=== PATIENT | male | born 1955 | race Caucasian/White ===

== ENCOUNTER 2020-10-27 10:29 | Outpatient (CLI) | payer OTHER, SELFPAY ==
--- NOTE | ~2020-10-27 | XR_ITS ---
EXAMINATION: XR forearm RT 2V DATE: 10/27/2020 10:59 INDICATION: Right arm pain and limited range of motion TECHNIQUE: AP an lateral views of the right forearm were obtained. COMPARISON: none FINDINGS: Marked diffuse osteopenia. Bone alignment is normal. No fracture. Mild polyarticular osteoarthritis a t the right elbow, wrist and visualized hand. No right elbow joint effusion. Soft tissues are unremar kable. IMPRESSION: 1. Marked diffuse osteopenia. No acute osseous abnormality. 2. Mild polyarticular osteoarthritis at the right elbow, wrist and visualized hand. Reviewed, dictated and finalized at location A. IMPRESSION: 1. Marked diffuse osteopenia. No acute osseous abnormality. 2. Mild polyarticular osteoarthritis at the right elbow, wrist and visualized h and.
== END 2020-10-27 10:30 | disposition home or self-care (01) ==
LOC: ANHIMG 10:34
PROVIDERS: PCP Internal Medicine; Visit Provider Internal Medicine
DX: M85.821 Other specified disorders of bone density and structure, right upper arm (principal); M19.021 Primary osteoarthritis, right elbow
CPT/HCPCS: 73090

== ENCOUNTER 2020-12-07 11:55 | Outpatient (CLI) | payer OTHER, SELFPAY ==
--- NOTE | ~2020-12-07 | XR_ITS ---
EXAMINATION: [id number]_[id number] EXAM DATE: 12/07/2020 12:37 INDICATION: Fall, left rib pain. TECHNIQUE: Frontal projection of the upper left ribs, frontal projection of the lower left ribs, obli que projection of the left ribs, frontal chest x-ray(s) for interpretation. Correlation is made to [facility] shoulder x-ray same day. FINDINGS: There are no displaced acute left rib fractures identified. There is no soft tissue abnor mality seen. No confluent consolidation, pneumothorax or pleural effusion suspected. Cardiomediastina l silhouette is normal. There is aortic arteriosclerosis. IMPRESSION: No displaced left rib fractures. Reviewed, dictated and finalized at location A.
--- NOTE | ~2020-12-07 | XR_ITS ---
EXAMINATION: XR shoulder LT min 2V EXAM DATE: 12/07/2020 12:36 INDICATION: W19.XXXA - Unspecified fall, left shoulder and rib pain. TECHNIQUE: The following left shoulder projections obtained: frontal projection with internal rotatio n, frontal projection with external rotation, Grashey, and scapular Y view (4+ views). Correlation is made to left rib x-ray same day. FINDINGS: No evidence of left shoulder rotator cuff calcific tendinosis. There is mild glenohumera l joint, mild acromioclavicular joint primary osteoarthritis. There are no acute fractures or disloca tions identified. There is no subcutaneous gas. The soft tissue is unremarkable. There are no rad iopaque foreign bodies. IMPRESSION: 1. XR shoulder LT min 2V exam without acute osseous findings. Reviewed, dictated and finalized at location A.
== END 2020-12-07 11:56 | disposition home or self-care (01) ==
LOC: ANHIMG 11:59
PROVIDERS: PCP Internal Medicine; Visit Provider Internal Medicine
DX: M25.512 Pain in left shoulder (principal); R09.81 Nasal congestion; W19.XXXA Unspecified fall, initial encounter
CPT/HCPCS: 71101; 73030

== ENCOUNTER 2021-02-14 10:54 | Outpatient (CLI) | payer OTHER, SELFPAY ==
[2021-02-14 11:55] LABS: Alanine Aminotransferase 16 U/L (4-50); Albumin Level 4.4 g/dL (3.5-5.1); Alkaline Phosphatase 81 U/L (38-126); Anion Gap 11 mmol/L (8-16); Aspartate Amino Transferase 21 U/L (17-59); Bilirubin,Total 0.4 mg/dL (0.2-1.3); Blood Urea Nitrogen 13 mg/dL (9-20); Calcium 9.3 mg/dL (8.4-10.2); Carbon Dioxide 27 mmol/L (22-30); Chloride 107 mmol/L (98-107); Cholesterol 97 mg/dL (0-200); Estimated Glomerular Filt Rate > 60; Glucose 91 mg/dL (65-110); HDL Direct 39 mg/dL; Potassium 3.6 mmol/L (3.4-5.0); Sodium 145 mmol/L (137-145); Triglycerides 76 mg/dL (<150)
[2021-02-14 12:06] LABS: LDL Cholesterol Direct 33 mg/dL
== END 2021-02-14 10:55 | disposition home or self-care (01) ==
LOC: ANHLAB 10:58
PROVIDERS: PCP Internal Medicine; Visit Provider Nurse Practitioner
DX: E78.5 Hyperlipidemia, unspecified (principal)
CPT/HCPCS: 36415; 80053; 80061

== ENCOUNTER 2021-05-01 14:08 | Emergency (ER) | payer OTHER, SELFPAY ==
--- NOTE | ~2021-05-01 | XR_ITS ---
EXAMINATION: XR chest 2V, XR shoulder RT min 2V DATE: 05/01/2021 16:18 INDICATION: Right shoulder pain post fall TECHNIQUE: 1. AP and lateral views of the chest were obtained. 2. AP and transscapular Y views of the right shoulder were obtained. COMPARISON: Chest CT dated 08/25/2014 FINDINGS: Chest: Biapical pleural-parenchymal scarring. Calcified nodules at the right apex and right lower lung zone along with calcified right hilar lymph nodes consistent with old granulomatous disease. Mild linear d iscoid atelectasis at the left lower lung zone. No pulmonary edema, pleural effusion or pneumothorax. The cardiomediastinal silhouette is normal. Mild thoracic spondylosis. Right shoulder: Diffuse osteopenia. Nondisplaced oblique fracture at the surgical neck of the proximal right humerus which remains in near-anatomic alignment. No other fractures identified. Osteoarthritis at the right shoulder, severe at the right acromioclavicular joint and at least mild severity at the right glenohu meral joint which is not clearly profiled. IMPRESSION: 1. Nondisplaced 1 part fracture at the surgical neck of the proximal right humerus. 2. Mild left basilar atelectasis. No acute cardiopulmonary disease. Reviewed, dictated and finalized at location A. ILE CONVERSION MANAGER IMPRESSION: 1. Nondisplaced 1 part fracture at the surgical neck of the proximal right kaitlin austin. 2. Mild left basilar atelectasis. No acute cardiopulmonary disease.
--- NOTE | ~2021-05-01 | XR_ITS ---
EXAMINATION: XR elbow RT 2V DATE: 05/01/2021 16:18 INDICATION: Painful rash at the right elbow TECHNIQUE: Lateral and oblique views of the right elbow were obtained. COMPARISON: None. FINDINGS: Alignment is normal. No fracture or joint effusion. Diffuse osteopenia. Mild osteoarthritis at the ri ght elbow. Enthesophyte at the proximal tip of the olecranon. No cortical erosions or periosteal reac tion. Soft tissue swelling over the dorsal aspect of the elbow and proximal forearm. No soft tissue g as or radiopaque foreign bodies. IMPRESSION: 1. Mild osteoarthritis at the right elbow. No right elbow joint effusion or acute osseous abnormality . Reviewed, dictated and finalized at location A. F SAFETY OFFICER IMPRESSION: 1. Mild osteoarthritis at the right elbow. No right elbow joint effusion or acu te osseous abnormality.
--- NOTE | ~2021-05-01 | CT_ITS ---
EXAMINATION: CT brain wo con DATE: 05/01/2021 16:27 INDICATION: Fall. Head injury. Right paresis and dysarthria from prior stroke. TECHNIQUE: Computed tomography (CT) of the head was performed without intravenous contrast. The mA wa s adjusted according to patient size. Iterative reconstruction technique was employed. Exam dose: 68 1.00 mGy-cm total exam DLP. COMPARISON: 08/25/2014 CT brain FINDINGS: There is extensive encephalomalacia of the left temporal, parietal and frontal areas and ex vacuo dilatation of the left lateral ventricle from old left middle cerebral artery territory infarc t. 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 No intracranial moderately mass lesion or hemorrhage or recent cerebrovascular accident is evident. N o midline shift or mass effect. There is prominent cerebellar and moderate cerebral volume loss. There is left vertebral artery and prominent bilateral carotid siphon internal carotid artery calcifi cation. There is nonspecific diminished attenuation cerebral white matter, likely due to chronic smal l vessel ischemic changes. No subdural or epidural hematoma is detected. Orbital contents are unremarkable. No skull fracture is evident. The mastoid air cells and included paranasal sinuses are unremarkable. IMPRESSION: Encephalomalacia left middle cerebral artery territory, chronic, not significant change since 08/25/2014; overlying bone flap Cerebral atherosclerosis and chronic small vessel ischemic changes of the cerebral white matter Reviewed, dictated and finalized at Location A. Reviewed, dictated and finalized at location B. AR BAND CREASER IMPRESSION: Encephalomalacia left middle cerebral artery territory, chronic, n ot significant change since 08/25/2014; overlying bone flap Cerebral atherosclerosis and chronic small vessel ischemic changes of the cereb ral white matter
[2021-05-01 14:09] VITALS: BP 113/41; PULSE 72; RESP 18; TEMP 36.9; O2SAT 97
[2021-05-01] MEDS: SODIUM CHLORIDE 0.9% IV 1,000 ML 999 ML IV CONT (16:51)
[2021-05-01] MEDS: fentaNYL CITRATE INJ (*CRX) 100 MCG/2 ML VIAL 50 MCG IV PUSH (16:51)
[2021-05-01 17:03] LABS: Basophils Absolute Auto 0.1 K/mm3 (0.0-0.1); Basophils Percent Auto 1.1 % (0.2-1.2); Eosinophils Absolute Auto 0.4 K/mm3 (0-0.3); Eosinophils Percent Auto 5.5 % (0-4.4); Hematocrit 34.2 % (42.0-52.0); Hemoglobin 11.5 g/dL (14.0-18.0); Immature Granulocyte Absolute 0.03 K/mm3 (0.00-0.031); Immature Granulocyte Percent A 0.4 % (0-0.5); Lymphocytes Absolute Auto 1.41 K/mm3 (0.9-3.2); Lymphocytes Percent Auto 18.9 % (18.3-44.2); Mean Corpuscular HGB Conc 33.6 g/dl (32-36); Mean Corpuscular Hemoglobin 34.7 pg (26-34); Mean Corpuscular Volume 103.3 fl (80-100); Mean Platelet Volume 9.3 fl (7.4-10.4); Monocytes Absolute Auto 0.6 K/mm3 (0.1-0.6); Monocytes Percent Auto 8.3 % (2.6-8.5); Neutrophils Absolute Auto 4.9 K/mm3 (1.3-6.7); Neutrophils Percent Auto 65.8 % (45.5-73.1); Platelet Count Result 337 k/mm3 (150-375); Red Blood Count 3.31 M/mm3 (4.6-6.20); Red Cell Distribution Width 12.1 % (11.5-14.5); White Blood Count 7.5 K/mm3 (4.5-10.0)
[2021-05-01 17:13] LABS: Creatine Kinase 60 U/L (55-170)
[2021-05-01 17:15] LABS: Alanine Aminotransferase 12 U/L (4-50); Albumin Level 4.3 g/dL (3.5-5.1); Alkaline Phosphatase 81 U/L (38-126); Anion Gap 7 mmol/L (8-16); Aspartate Amino Transferase 19 U/L (17-59); Blood Urea Nitrogen 18 mg/dL (9-20); Calcium 9.1 mg/dL (8.4-10.2); Carbon Dioxide 25 mmol/L (22-30); Chloride 106 mmol/L (98-107); Estimated CRCL calculation 62 ml/min; Estimated Glomerular Filt Rate > 60; Glucose 107 mg/dL (65-110); Potassium 3.7 mmol/L (3.4-5.0); Sodium 138 mmol/L (137-145)
--- NOTE | 2021-05-01 17:57 | ED.GENADULT ---
HPI - General Adult General Chief complaint: Extremity Injury, Upper Stated complaint: fall/right shoulder pain Time Seen by Provider: 05/01/21 15:31 Source: patient, family and RN notes reviewed Mode of arrival: ambulatory Limitations: no limitations History of Present Illness HPI narrative: Patient is a 65-year-old male who presents with right shoulder and upper extremity swelling that has been present since he sustained a ground-level fall on Friday he has history of right upper extremity weakness and right-sided weakness secondary to his past CVA she did denies any head injury or altered mentation he has had pain to the extremity worse with activity and movement he ran out of his pain medication today and has had increasing pain. Patient takes chronic narcotics given his chronic pain related to his CVA. She denies any other injuries or complaints. Patient has expressive aphasia. She denies any illness Related Data Home Medications Medication Instructions Recorded Confirmed aspirin 325 mg tablet 325 mg PO DAILY 08/03/20 03/02/21 Allergies Allergy/AdvReac Type Severity Reaction Status Date / Time codeine Allergy Mild HIVES Verified 05/01/21 15:42 Review of Systems Review of Systems: Review of systems limited due to history of expressive aphasia All systems reviewed & are unremarkable except as noted in HPI and below PMFSH Past Medical History Medical History CAD (coronary artery disease) Stroke Surgical History Surgical History History of back surgery 2010 Family History Family History Father Alcoholism Hypertension Mother Hypertension Heart disease Social History Social History Tobacco type: cigarettes Second hand tobacco smoke exposure: No Alcohol intake: current Drinks per week: 2 Alcohol use details: BEER Substance use: current Gender identity (if verbalized by the patient): Male Exam Narrative: GENERAL: Well-appearing, well-nourished, uncomfortable appearing, and in no acute distress. HEAD: Normocephalic, atraumatic. EYES: PERRLA and EOMI. ENT: Nares clear, no rhinorrhea or epistaxis. Mucous membranes moist. NECK: Supple. No adenopathy or masses. CHEST: Clear to auscultation. No respiratory distress. No wheezes rales or rhonchi HEART: Regular rate and rhythm. No murmur heard. Normal peripheral pulses. EXTREMITIES: Patient with tenderness and bruising and swelling from the right shoulder joint down into the forearm. Compartment tissues are soft. No tenderness of the forearm or wrist joint or hand BACK: No cervical thoracic or lumbar tenderness SKIN: Warm, dry, no rash. NEURO: Alert and oriented. Neurovascularly intact. Capillary refill less than 2 seconds PSYCH: Normal mood and affect. Course Course Emergency Course: Patient found to have a proximal right humerus fracture will be discharged home he was placed in a shoulder immobilizer he is aware of case findings treatment plan and diagnosis his was given imaging results he was referred to orthopedics advised to follow with primary care he is hemodynamically stable ABCs and vital signs intact and stable. Consultations Consultation #1: Discussed case with orthopedic surgery on-call Dr. Mcgowan who will follow patient in clinic Date: 05/01/21 Time: 18:02 Vital Signs Vital signs: Vital Signs Temperature 98.5 F 05/01/21 14:09 Pulse Rate 72 05/01/21 14:09 Respiratory Rate 18 05/01/21 14:09 Blood Pressure 113/41 L 05/01/21 14:09 Pulse Oximetry 97 05/01/21 14:09 Temperature 98.5 F 05/01/21 14:09 Pulse Rate 72 05/01/21 14:09 Respiratory Rate 18 05/01/21 14:09 Blood Pressure 113/41 L 05/01/21 14:09 Pulse Oximetry 97 05/01/21 14:09 Medical Decision Making
== END 2021-05-01 18:20 | disposition home or self-care (01) ==
PROVIDERS: Emergency Medicine Emergency Medical Services; Emergency Provider Emergency Medicine; PCP Internal Medicine
DX: S42.214A Unspecified nondisplaced fracture of surgical neck of right humerus, initial encounter for closed fracture (principal); I69.951 Hemiplegia and hemiparesis following unspecified cerebrovascular disease affecting right dominant side; I69.920 Aphasia following unspecified cerebrovascular disease; I69.998 Other sequelae following unspecified cerebrovascular disease; G89.29 Other chronic pain; I25.10 Atherosclerotic heart disease of native coronary artery without angina pectoris; F17.210 Nicotine dependence, cigarettes, uncomplicated; M19.021 Primary osteoarthritis, right elbow; I67.2 Cerebral atherosclerosis; W19.XXXA Unspecified fall, initial encounter
CPT/HCPCS: 36415; 70450; 71046; 73030; 73070; 80053; 82550; 85025; 96361; 96374; 99284; J3010; J7030

== ENCOUNTER 2024-03-27 11:43 | Emergency (ER) | payer OTHER, SELFPAY ==
[2024-03-27 12:17] VITALS: BP 158/52; PULSE 91; RESP 16; TEMP 36.3; O2SAT 98
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
--- OUTSIDE RECORDS SUMMARY | 2024-04-03 17:31 | XMS_ITS | Encounter Summary ---
Author Organization [facility] Address [address] [place] [address]. [place] [address] [place] [address] Care Team Providers Care Box Icer Name Role Phone Garrett Pineda MD Primary Care Provider [phone] Reason for Visit * Reason Onset Date Comments Appointment Request 02/15/2021 Encounter Details Date Type Department Care Team (Late st Contact Info) Description 02/15/2021 Telephone [facility] [address] [place] [address] Garrett Pineda MD [address] [address] Appointment Request Social History Tobacco Use Types Packs/Day Years Used Date Smoking Tobacco: Former Cigarettes Smokeless Tobacco: Never Comments:nicotine patches Alcohol Use Standard Drinks/Week Comments No 0 (1 standard drink = 0.6 oz pur e alcohol) Sex and Gender Information Value Date Recorded Sex Assigned at Not on file Legal Sex Male 7:37 PM CDT Gender Identity Not on file Sexual Orientation Not on file documented as of this encounter Progress Notes * Lexie Dickey CMA - 02/15/2021 11:25 AM CST Calling patient to schedule EE visit My direct line is [phone] OR QUALITATIVE RESEARCHER documented in this encounter Plan of Treatment Not on file documented as of this encounter Visit Diagnoses Not on filedocumented in this encounter Care Teams Box Icer Relationship Specialty Start Date End Date Garrett Pineda MD PCP - General FAMILY PRACTICE 02/07/20 10/16/23 documented as of this encounter
--- OUTSIDE RECORDS SUMMARY | 2024-04-03 17:31 | XMS_ITS | Encounter Summary ---
Author Organization [facility] Address [address] [place] [address]. [place] [address] [place] [address] Care Team Providers Care Marine Scientist Name Role Phone Garrett Pineda MD Primary Care Provider [phone] Reason for Referral * Imaging (Emergency) - New Request Specialty Diagnoses / Procedures Referred By Contac t Referred To Contact RADIOLOGY Procedures CT CERV SPINE WO CON Tyshawn Devi MD,PHD [address] [place] [address] Phone: tel: fax: Referral ID Status Reason Start Date Expiration Date V isits Requested Visits Authorized [id number] New Request 09/26/2023 2024 1 1 * Imaging (Emergency) - New Request Specialty Diagnoses / Procedures Referred By Contac t Referred To Contact RADIOLOGY Procedures CT HEAD WO CON Tyshawn Devi MD,PHD [address] [place] [id number] Phone: tel: fax: Referral ID Status Reason Start Date Expiration Date V isits Requested Visits Authorized [id number] New Request 09/26/2023 2024 1 1 Reason for Visit * Reason Comments Fall Encounter Details Date Type Department Care Team (Late st Contact Info) Description 09/26/2023 12:13 PM CDT - 09/26/2023 5:22 PM CDT Emergency [facility] [place] [address] Tyshawn Devi MD,PHD [address] [place] [id number] Fall Discharge Disposition: Home or Self Care (Routine Discharge) Social History Tobacco Use Types Packs/Day Years [...] on file documented as of this encounter Last Filed Vital Signs Vital Sign Reading Time Taken Comments Blood Pressure 127/50 09/26/2023 5:00 PM CDT Pulse 64 09/26/2023 5:00 PM CDT Temperature 36.8 ??C (98.3 ??F) 09/26/2023 12:22 PM C DT Respiratory Rate 18 09/26/2023 5:00 PM CDT Oxygen Saturation 92% 09/26/2023 5:00 PM CDT Inhaled Oxygen Concentration - - Weight 72.3 kg (159 lb 6.3 oz) 09/26/2023 12:22 PM CDT Height 175.3 cm (5' 9 ) 09/26/2023 12:22 PM CDT Body Mass Index 23.54 09/26/2023 12:22 PM CDT documented in this encounter Discharge Instructions * Attachments The following attachments cannot be sent through Care Everywhere. * Preventing Falls ED (Turkish) documented in this encounter Medications at Time of Discharge amLODIPine (NORVASC) 10 MG tablet Take 1 tablet (10 mg total) by mouth daily. aspirin (ASPIRIN LOW DOSE) 81 MG tablet Take 1 tablet (81 mg total) by mouth daily. atorvastatin (LIPITOR) 20 MG tablet Take 1 tablet (20 mg total) by mouth daily. 07/09/2023 buPROPion XL (WELLBUTRIN XL) 150 MG 24 hr tablet Take 1 tablet (150 mg total) by mouth every morning. 09/24/2023 gabapentin (NEURONTIN) 300 MG capsule Take 1 capsule (300 mg total) by mouth see administration instructions. Take 1 capsule by mouth in the morning and 2 at night 08/27/2023 HYDROcodone-john taminophen (NORCO) 5-325 MG tablet Take 1 tablet by mouth every 6 (six) hours as needed. levETIRAcetam (KEPPRA) 500 MG tablet Take 1 tablet (500 mg total) by mouth every 12 (twelve) hours. metoprolol tartrate 25 MG tablet Take 25 mg by mouth 2 (two) times daily. oxybutynin XL (DITROPAN-XL) 5 MG 24 hr tablet Take 1 tablet (5 mg total) by mouth daily. 09/10/2023 sertraline (ZOLOFT) 100 MG tablet Take 1 tablet (100 mg total) by mouth daily. 09/26/2023 tamsulosin 0.4 MG Cap Take 0.4 mg by mouth 2 (two) times a day. documented as of this encounter ED Notes * Paola Stock RN - 09/26/2023 5:21 PM CDT Provider discussed today's findings with the patient/family. The patient has been given informationregarding their treatment, follow up and concerning symptoms for which they should seek urgent or emergent attention. I have expressed the the importance of seeking attention should there be any new,or worsening symptoms or persistence of their condition. Patient verbalized understanding of the discharge instructions. * Paola Stock RN - 09/26/2023 4:13 PM CDT This RN spoke to [employer] ems in order to obtain a ride for pt back home. [employer] states they willcall back. * Paola Stock RN - 09/26/2023 1:16 PM CDT This RN spoke to pt's daughter and . Per family pt fell backwards hitting his head on the furniture. Per daughter pt has had a decline in ambulation, stating he urinated on himself because he couldn't get out of bed. I had to get help to turn him and when he tried to get up, he couldn't and started shaking. Family reports they will be up here. made aware. * Tyshawn Devi MD,PHD - 09/26/2023 12:29 PM CDT EMERGENCY DEPARTMENT ENCOUNTER Chief Complaint Chief Complaint Patient presents with Fall History of Present Illness 68-year-old male presenting to the emergency department for evaluation after a fall. Patient had ground level fall witnessed by family yesterday. They report he fell backwards and struck his head. Family denies that the patient lost consciousness. His family was concerned that he has had some difficulty ambulating since the fall, so they sent him to the emergency department for evaluation. He hasright-sided deficits from prior stroke and is on daily aspirin. He is also on supplemental oxygen as needed. Upon evaluation, he is unable to provide history and only answers questions with I don't know . Family reports this is his baseline mental status. Physical Exam Filed Vitals: 09/26/23 1222 09/26/23 1400 BP: 137/48 (!) 144/57 Pulse: 75 72 Resp: 16 17 Temp: 98.3 ??F (36.8 ??C) TempSrc: Oral SpO2: 95% 97% Weight: 72.3 kg (159 lb 6.3 oz) Height: 1.753 m (5' 9 ) CONSTITUTIONAL: Patient is awake, alert, in no acute distress HEAD AND FACE: Prior craniotomy on the left NECK: Supple, no obvious asymmetry, no cervical spine step-offs CARDIOVASCULAR: Regular rate and rhythm RESPIRATORY: No respiratory distress or tachypnea, no wheezing or crackles ABDOMEN: Soft, nontender, nondistended, NEUROLOGIC: Right-sided hemiplegia with increased muscle tone/spasticity on the right, answers questions with yes no or I do not know , patient's family reports that this is baseline MUSCULOSKELETAL: No tenderness or deformities to palpation of the major joints or long bones, good strength and tone, joints free from effusion, normal non- painful range of motion of the major joints VASCULAR: 2+ radial and DP pulses Diagnostic Studies / Procedures LABORATORY STUDIES: Results for orders placed or performed during the hospital encounter of 09/26/23 CBC W/DIFF AUTOMATED Result Value Ref Range WBC 9.90 4.5 - 11.0 x10'3/uL RBC 3.41 (L) 4.70 - 6.10 x10'6/uL HGB 11.5 (L) 14.0 - 18.0 G/DL HCT 35.4 (L) 43.0 - 54.0 % MCV 103.8 (H) 80.0 - 94.0 FL MCH 33.7 (H) 27.0 - 31.0 PG MCHC 32.5 32.0 - 36.0 G/DL RDW 12.8 11.5 - 14.5 % PLT 273 130 - 400 x10'3/uL MPV 9.6 9.3 - 12.2 FL DIFFERENTIAL TYPE AUTOMATED DIFFERENTIAL NEUTROPHILS 84.7 % LYMPHOCYTES 7.4 % MONOCYTES 5.3 % EOSINOPHILS 1.7 % BASOPHILS 0.6 % IMMATURE GRANS 0.3 % ABS. NEUTROPHILS 8.39 (H) 1.80 - 7.70 x10'3/uL ABS. LYMPHOCYTES 0.73 (L) 1.00 - 4.80 x10'3/uL ABS. MONOCYTES 0.52 0.30 - 0.82 x10'3/uL ABS. EOSINOPHILS 0.17 0.04 - 0.54 x10'3/uL ABS. BASOPHILS 0.06 0.01 - 0.08 x10'3/uL ABS. IMMATURE GRANULOCYTES 0.03 0.00 - 0.49 x10'3/uL COMPREHENSIVE METABOLIC PANEL Result Value Ref Range GLUCOSE 106 (H) 70 - 99 MG/DL BUN 24 (H) 7 - 18 MG/DL CREATININE S/P/B 1.30 0.7 - 1.3 MG/DL SODIUM S/P/B 141 136 - 145 MMOL/L POTASSIUM S/P/B 3.9 3.5 - 5.1 MMOL/L CHLORIDE S/P/B 110 (H) 100 - 108 MMOL/L CO2 27.7 21 - 32 MMOL/L CALCIUM S/P/B 8.7 8.5 - 10.1 MG/DL BILIRUBIN TOTAL S/P/B 0.2 0.2 - 1.2 MG/DL TOTAL PROTEIN S/P/B 7.3 6.4 - 8.2 G/DL ALBUMIN S/P/B 2.8 (L) 3.4 - 5.0 G/DL AST 9 (L) 15 - 37 U/L ALT 18 16 - 60 U/L ALKALINE PHOSPHATASE S/P/B 119 50 - 136 U/L ANION GAP 3.3 (L) 5 - 15 MMOL/L BUN CREATININE RATIO 18.5 6 - 26 A/G RATIO 0.6 (L) 1.0 - 2.0 RATIO GFR ESTIMATE 59 (L) >90 ML/MIN/1.73 M2 IMAGING STUDIES XR CHEST PA+LAT Final Result by User, [id number] (09/25 1529) Examination: Chest x-ray 2 view Exam date/time: 09/26/2023 2:56 PM Reason For Exam: 68 male . Follow-up finding on thoracic spine radiographs imaging Comparison: Thoracic spine radiographs 09/26/2023 Technique: AP frontal and lateral. Findings: Lordotic frontal view.. Normal cardiac size allowing for technique. Normally positioned trachea. Hilar and mediastinal contours are within normal limits. Nonspecific bronchovascular and interstitial prominence in the setting of the bilateral low normal lung volumes. No No convincing confluent consolidation sizable effusion or pneumothorax. Suspected streaky bibasilar subsegmental atelectasis. Upper abdomen is unremarkable. =====IMPRESSION:===== 1. No convincing acute/active cardiopulmonary process identified radiographically 2. Bilateral low normal lung volumes with possibly related bronchovascular and interstitial prominence. 3. Suspected bibasilar subsegmental atelectasis. Ordered By: TYSHAWN DEVI Interpreted By: Haris Jiang MD, 09/26/2023 3:25 PM XR HIP VEDA 2V+PELVIS Final Result by User, [id number] (09/25 7766) Examination: Pelvis AP view and bilateral Hips Exam Date/Time: 09/26/2023 1:27 PM Reason For Exam: ground level fall, right hip pain Comparison: None Technique: AP view of the pelvis and bilateral hips were obtained. Findings: No acute fracture or dislocation. Hip joint spaces are preserved bilaterally. SI joints are unremarkable. No destructive osseous lytic or sclerotic lesions. Postoperative changes spine will be further described on spinal x-ray. Vascular calcifications are noted. Findings are suspicious for atherosclerotic change.. =====IMPRESSION:===== 1. No acute osseous abnormalities. Ordered By: TYSHAWN DEVI Interpreted By: Tima Ponce MD, 09/26/2023 2:29 PM XR THOR SPINE 3V Final Result by User, [id number] (09/25 2406) CLINICAL INDICATION: 68-year-old male. Reason for examination: Fall, back pain. 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 Per ems pt had a witnessed ground level fall yesterday in which family denies any LOC or hitting head. 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 Per ems pt reported right arm and left knee pain in which they gave 30mg toradol IM. EXAMINATION: THORACIC SPINE RADIOGRAPHS LUMBAR SPINE RADIOGRAPHS TECHNIQUE: 4 view survey of the thoracic spine: AP and lateral and 2 lateral swimmer's lateral. 4. View survey of the lumbar spine COMPARISON: No previous imaging of the thoracic or the lumbar spine. FINDINGS: Thoracic spine: No evidence of acute fracture or traumatic malalignment. No acute compression fracture and without retropulsion of the posterior vertebral margins.. Thoracic vertebral bodies demonstrate normal alignment. Old superior endplate wedge compression deformity 3 and T9 and T8, each with sclerotic superior endplate. Approximately 10% loss of height of each segment. The remainder the thoracic vertebral segments demonstrate normal body height and contour. No posterior pneumothorax. On the lateral projection there appears to be consolidation or infiltrate or atelectasis in one of the lower lungs. Might consider follow-up with 2 view chest study. Lumbar spine: There are 5 nonrib-bearing lumbar vertebral segments. No evidence of acute fracture or traumatic malalignment. No acute compression fracture. There is intact hardware after posterior lumbar interbody fusion at L4 and L4-5 and S1. Expected normal position of titanium cage prosthetic disc spacers at L4-5 and L5-S1. Old wedge compression deformity superior endplate L1 sclerotic margin no retropulsion of the posterior vertebral body approximately 10% loss of height. The remainder of the lumbar segments demonstrate normal body height and contour. The posterior lumbar vertebral line is maintained. Facet alignment is preserved. Intervertebral disc spaces are intact. Sacrum intact. Sacroiliac joints are symmetric. Heavy circumferential plaque of the infrarenal aorta, moderate aortobiiliac disease and circumferential plaque of the inflow arteries. IMPRESSION: 1. No evidence of acute fracture or traumatic malalignment in the thoracic or lumbar spine. 2. Multilevel thoracic and L1 with old wedge compression deformities without retropulsion of posterior margins 3. On the lateral thoracic spine radiograph there appears to be consolidation or infiltrate or atelectasis in one of the lower lobes; consider follow-up with a two-view chest study. Referred By: Interpreted By: Maxine Lloyd DO, 09/26/2023 2:34 PM XR LUMB SPINE 3V Final Result by User, [id number] (09/25 3653) CLINICAL INDICATION: 68-year-old male. Reason for examination: Fall, back pain. 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 Per ems pt had a witnessed ground level fall yesterday in which family denies any LOC or hitting head. 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 Per ems pt reported right arm and left knee pain in which they gave 30mg toradol IM. EXAMINATION: THORACIC SPINE RADIOGRAPHS LUMBAR SPINE RADIOGRAPHS TECHNIQUE: 4 view survey of the thoracic spine: AP and lateral and 2 lateral swimmer's lateral. 4. View survey of the lumbar spine COMPARISON: No previous imaging of the thoracic or the lumbar spine. FINDINGS: Thoracic spine: No evidence of acute fracture or traumatic malalignment. No acute compression fracture and without retropulsion of the posterior vertebral margins.. Thoracic vertebral bodies demonstrate normal alignment. Old superior endplate wedge compression deformity 3 and T9 and T8, each with sclerotic superior endplate. Approximately 10% loss of height of each segment. The remainder the thoracic vertebral segments demonstrate normal body height and contour. No posterior pneumothorax. On the lateral projection there appears to be consolidation or infiltrate or atelectasis in one of the lower lungs. Might consider follow-up with 2 view chest study. Lumbar spine: There are 5 nonrib-bearing lumbar vertebral segments. No evidence of acute fracture or traumatic malalignment. No acute compression fracture. There is intact hardware after posterior lumbar interbody fusion at L4 and L4-5 and S1. Expected normal position of titanium cage prosthetic disc spacers at L4-5 and L5-S1. Old wedge compression deformity superior endplate L1 sclerotic margin no retropulsion of the posterior vertebral body approximately 10% loss of height. The remainder of the lumbar segments demonstrate normal body height and contour. The posterior lumbar vertebral line is maintained. Facet alignment is preserved. Intervertebral disc spaces are intact. Sacrum intact. Sacroiliac joints are symmetric. Heavy circumferential plaque of the infrarenal aorta, moderate aortobiiliac disease and circumferential plaque of the inflow arteries. IMPRESSION: 1. No evidence of acute fracture or traumatic malalignment in the thoracic or lumbar spine. 2. Multilevel thoracic and L1 with old wedge compression deformities without retropulsion of posterior margins 3. On the lateral thoracic spine radiograph there appears to be consolidation or infiltrate or atelectasis in one of the lower lobes; consider follow-up with a two-view chest study. Referred By: Interpreted By: Maxine Lloyd DO, 09/26/2023 2:[address] HEAD WO CON Final Result by User, [id number] (09/25 1936) EXAMINATION: CT of the Head EXAM DATE/TIME: 09/26/2023 12:54 PM REASON FOR EXAM: History of craniotomy Head trauma, minor (Age >= 65y) COMPARISON: None TECHNIQUE: Axial CT images of the brain are obtained from skull base through vertex without the use of IV contrast agent. A radiation dose lowering technique was used for this procedure, which may include but is not necessarily limited to, dose reduction technique, automated exposure control, the use of greater reconstruction, ALARA (as low as reasonably achievable) techniques, and imaged gently techniques. FINDINGS: Left craniotomy is noted. Severe encephalomalacia in the left cerebrum is noted with atrophy of the middle cerebral artery distribution. Compensatory dilatation of the left lateral ventricle is seen. Minimal midline shift to left is also noted, likely secondary to encephalomalacia in the left cerebrum. This measures 3 mm. No acute intracranial hemorrhage is seen. No obvious cerebral edema is noted. Ventricles are minimally enlarged with prominent sulci bilaterally indicated mild symmetric parenchymal volume loss. There are minimal areas of scattered hypodensities in the periventricular deep white matter which are nonspecific but likely secondary to mild small vessel ischemic disease. There are no extra-axial fluid collections seen. There is no obvious mass effect. There is no depressed skull fracture. Visualized paranasal sinuses are clear. Orbital contents Normal in their viewed portions. =====IMPRESSION:===== No evidence of acute intracranial hemorrhage or extra-axial collection. Positive left craniotomy. Left cerebral encephalomalacia in the left middle cerebral artery distribution. Associated compensatory dilatation of the left lateral ventricle and minimal left midline shift noted. CT scan can be insensitive to acute ischemia. Ordered By: TYSHAWN DEVI Interpreted By: Tima Ponce MD, 09/26/2023 1:[address] CERV SPINE WO CON Final Result by User, [id number] (09/25 1316) Exam: CT Cervical Spine without contrast. Indication: 68 male. Ground-level fall. Right arm and left knee pain Neck trauma (Age >= 65y) . History of prior stroke Comparison: None Technique: Computed tomography of the cervical spine performed without contrast. A dose lowering technique was used for this procedure, which may include, but is not limited to, dose reduction technique, automated exposure control, the use of iterative reconstruction, and ALARA (As Low As Reasonably Achievable) / Image Gently techniques. CT finding: Upper cervical spine straightening. Normal vertebral body alignment without significant listhesis. Facets and lateral masses are aligned. Heterogeneous normal bone density. Normal vertebral body heights. No fractures seen. No focal finding. No focal lesion. Multilevel degenerative spondylosis with the mild and moderate disc degenerative change. Mild facet and uncovertebral hypertrophic spurring. There is multilevel spinal stenosis related to primarily disc protrusions and posterior discussed by complexes with the suspected moderately severe spinal stenosis at the C3-4 and C4-5, and moderate at C5-6 and C6-7. There is bilateral neural foraminal narrowing most prominent at C4-5 and C5-6. =====IMPRESSION:===== 1. No CT imaging findings for acute cervical spine injury. No fracture or signal malalignment. 2. Multilevel degenerative spondylosis with multilevel significant spinal stenosis and multilevel foraminal narrowing. Ordered By: TYSHAWN DEVI Interpreted By: Haris Jiang MD, 09/26/2023 1:10 PM ED Course / Medical Decision Making Patient presenting with a chief complaint of fall Additional history is provided by and obtained from EMS and family due to patient's baseline mentalstatus I reviewed the patient's labs, which are significant for hyperglycemia on CMP. His CBC is notable for mild macrocytic anemia. I reviewed the radiologist's interpretation of the patient's radiologic diagnostics. A CT of the head ordered to rule out intracranial hemorrhage and/or skull fracture is negative in this regard. A CT of the cervical spine ordered to rule out cervical spine fracture or dislocation is negative in this regard. X- rays of the thoracic spine, lumbar spine, hips, pelvis, and chest show no osseous abnormalities or other remarkable abnormalities. The remainder of his extremity examination is normal at this time without evidence of additional injuries. I interpreted the patient's pulse oximeter at rest, which is 95% on room air, which is normal and determined that this patient is not hypoxic It is assessment that the patient is his mental status baseline. No injuries are found on examination or with diagnostic imaging. His vital signs are normal. 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 Per ems pt had a witnessed ground level fall yesterday in which family denies any LOC or hitting head. 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 Per ems pt reported right arm and left knee pain in which they gave 30mg toradol IM. Pt ambulates with a cane. Pt is alert and oriented, but states 'I don't know when asked questions. * Saeid Larsen RN - 09/26/2023 12:13 PM CDT Bed: 17 Expected date: Expected time: Means of arrival: Comments: [place] documented in this encounter Plan of Treatment Not on file documented as of this encounter Procedures Procedure Name Priority Date/Time Associated Diagnosis Comments XR CHEST PA+LAT STAT 09/26/2023 3:08 PM CDT XR THOR SPINE 3V STAT 09/26/2023 1:57 PM CDT XR LUMB SPINE 3V STAT 09/26/2023 1:57 PM CDT XR HIP VEDA 2V+PELVIS STAT 09/26/2023 1:[address] HEAD WO CON STAT 09/26/2023 1:[address] CERV SPINE WO CON STAT 09/26/2023 1:03 PM CDT COMPREHENSIVE METABOLIC PANEL STAT 09/26/2023 12:41 PM CDT CBC W/DIFF AUTOMATED STAT 09/26/2023 12:41 PM CDT documented in this encounter Results * XR CHEST PA+LAT (09/26/2023 3:08 PM CDT) Anatomical Region Laterality Modality Chest Radiographic Tawanna ging 09/26/2023 3:25 PM CDT Impressions 09/26/2023 3:28 PM CDT =====IMPRESSION:===== 1. No convincing acute/active cardiopulmonary process identified radiographically 2. Bilateral low normal lung volumes with possibly related bronchovascular and interstitial prominence. 3. Suspected bibasilar subsegmental atelectasis. Ordered By: TYSHAWN DEVI Interpreted By: Haris Jiang MD, 09/26/2023 3:25 PM Narrative 09/26/2023 3:28 PM CDT Examination: Chest x-ray 2 view Exam date/time: 09/26/2023 2:56 PM Reason For Exam: ??68 male . Follow-up finding on thoracic spine radiographs imaging ?? Comparison: Thoracic spine radiographs 09/26/2023 Technique: AP frontal and lateral. Findings: Lordotic frontal view.. Normal cardiac size allowing for technique. Normally positioned trachea. Hilar and mediastinal contours are within normal limits. Nonspecific bronchovascular and interstitial prominence in the setting of the bilateral low normal lung volumes. No No convincing confluent consolidation sizable effusion or pneumothorax. Suspected streaky bibasilar subsegmental atelectasis. Upper abdomen is unremarkable. Procedure Note Haris Jiang MD - 09/26/2023 Examination: Chest x-ray 2 view Exam date/time: 09/26/2023 2:56 PM Reason For Exam: 68 male . Follow-up finding on thoracic spineradiographs imaging Comparison: Thoracic spine radiographs 09/26/2023 Technique: AP frontal and lateral. Findings: Lordotic frontal view.. Normal cardiac size allowing fortechnique. Normally positioned trachea. Hilar and mediastinal contours arewithin normal limits. Nonspecific bronchovascular and interstitial prominence in the setting ofthe bilateral low normal lung volumes. No No convincing confluent consolidation sizable effusion or pneumothorax.Suspected streaky bibasilar subsegmental atelectasis. Upper abdomen is unremarkable. =====IMPRESSION:===== 1. No convincing acute/active cardiopulmonary process identifiedradiographically 2. Bilateral low normal lung volumes with possibly related bronchovascularand interstitial prominence. 3. Suspected bibasilar subsegmental atelectasis. Ordered By: TYSHAWN DEVI Interpreted By: Haris Jiang MD, 09/26/2023 3:25 PM us Tyshawn Devi MD,PHD GENERAL IMAGING Final Resu lt * XR LUMB SPINE 3V (09/26/2023 1:57 PM CDT) Anatomical Region Laterality Modality Spine Radiographic Tawanna ging 09/26/2023 2:34 PM CDT Impressions 09/26/2023 2:47 PM CDT IMPRESSION: 1. ??No evidence of acute fracture or traumatic malalignment in the thoracic or lumbar spine. 2. ??Multilevel thoracic and L1 with old wedge compression deformities without retropulsion of posterior margins 3. ??On the lateral thoracic spine radiograph there appears to be consolidation or infiltrate or atelectasis in one of the lower lobes; consider follow-up with a two-view chest study. Referred By: ?? Interpreted By: Maxine Lloyd DO, 09/26/2023 2:34 PM Narrative 09/26/2023 2:47 PM CDT CLINICAL INDICATION: 68-year-old male. ??Reason for examination: Fall, back pain. 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 Per ems pt had a witnessed ground level fall yesterday in which family denies any LOC or hitting head. 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 Per ems pt reported right arm and left knee pain in which they gave 30mg toradol IM. EXAMINATION: THORACIC SPINE RADIOGRAPHS LUMBAR SPINE RADIOGRAPHS TECHNIQUE: 4 view survey of the thoracic spine: AP and lateral and 2 lateral swimmer's lateral. 4. ??View survey of the lumbar spine COMPARISON: No previous imaging of the thoracic or the lumbar spine. FINDINGS: Thoracic spine: No evidence of acute fracture or traumatic malalignment. ??No acute compression fracture and without retropulsion of the posterior vertebral margins.. ??Thoracic vertebral bodies demonstrate normal alignment. ??Old superior endplate wedge compression deformity 3 and T9 and T8, each with sclerotic superior endplate. ??Approximately 10% loss of height of each segment. ??The remainder the thoracic vertebral segments demonstrate normal body height and contour. No posterior pneumothorax. ??On the lateral projection there appears to be consolidation or infiltrate or atelectasis in one of the lower lungs. ??Might consider follow-up with 2 view chest study. Lumbar spine: There are 5 nonrib-bearing lumbar vertebral segments. ??No evidence of acute fracture or traumatic malalignment. ??No acute compression fracture. ??There is intact hardware after posterior lumbar interbody fusion at L4 and L4-5 and S1. ??Expected normal position of titanium cage prosthetic disc spacers at L4-5 and L5-S1. ??Old wedge compression deformity superior endplate L1 sclerotic margin no retropulsion of the posterior vertebral body approximately 10% loss of height. ??The remainder of the lumbar segments demonstrate normal body height and contour. ??The posterior lumbar vertebral line is maintained. ??Facet alignment is preserved. ??Intervertebral disc spaces are intact. Sacrum intact. ??Sacroiliac joints are symmetric. Heavy circumferential plaque of the infrarenal aorta, moderate aortobiiliac disease and circumferential plaque of the inflow arteries. Procedure Note Maxine Lloyd MD - 09/26/2023 CLINICAL INDICATION: 68-year-old male. Reason for examination: Fall, back pain. 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 Pt is aox2 at baseline , wear oxygen prnand has right sided deficit from a previous stroke. Per ems pt reportedright arm and left knee pain in which they gave 30mg toradol IM. EXAMINATION: THORACIC SPINE RADIOGRAPHS LUMBAR SPINE RADIOGRAPHS TECHNIQUE: 4 view survey of the thoracic spine: AP and lateral and 2 lateralswimmer's lateral. 4. View survey of the lumbar spine COMPARISON: No previous imaging of the thoracic or the lumbar spine. FINDINGS: Thoracic spine: No evidence of acute fracture or traumatic malalignment. No acutecompression fracture and without retropulsion of the posterior vertebralmargins.. Thoracic vertebral bodies demonstrate normal alignment. Oldsuperior endplate wedge compression deformity 3 and T9 and T8, each withsclerotic superior endplate. Approximately 10% loss of height of eachsegment. The remainder the thoracic vertebral segments demonstrate normalbody height and contour. No posterior pneumothorax. On the lateral projection there appears to beconsolidation or infiltrate or atelectasis in one of the lower lungs.Might consider follow-up with 2 view chest study. Lumbar spine: There are 5 nonrib-bearing lumbar vertebral segments. No evidence ofacute fracture or traumatic malalignment. No acute compression fracture.There is intact hardware after posterior lumbar interbody fusion at L4 andL4-5 and S1. Expected normal position of titanium cage prosthetic discspacers at L4-5 and L5-S1. Old wedge compression deformity superiorendplate L1 sclerotic margin no retropulsion of the posterior vertebralbody approximately 10% loss of height. The remainder of the lumbarsegments demonstrate normal body height and contour. The posterior lumbarvertebral line is maintained. Facet alignment is preserved.Intervertebral disc spaces are intact. Sacrum intact. Sacroiliac joints are symmetric. Heavy circumferential plaque of the infrarenal aorta, moderateaortobiiliac disease and circumferential plaque of the inflow arteries. IMPRESSION: 1. No evidence of acute fracture or traumatic malalignment in thethoracic or lumbar spine. 2. Multilevel thoracic and L1 with old wedge compression deformitieswithout retropulsion of posterior margins 3. On the lateral thoracic spine radiograph there appears to beconsolidation or infiltrate or atelectasis in one of the lower lobes;consider follow-up with a two-view chest study. Referred By: Interpreted By: Maxine Lloyd DO, 09/26/2023 2:34 PM us Tyshawn Devi MD,PHD GENERAL IMAGING Final Resu lt * XR THOR SPINE 3V (09/26/2023 1:57 PM CDT) Anatomical Region Laterality Modality Spine Radiographic Tawanna ging 09/26/2023 2:34 PM CDT Impressions 09/26/2023 2:47 PM CDT IMPRESSION: 1. ??No evidence of acute fracture or traumatic malalignment in the thoracic or lumbar spine. 2. ??Multilevel thoracic and L1 with old wedge compression deformities without retropulsion of posterior margins 3. ??On the lateral thoracic spine radiograph there appears to be consolidation or infiltrate or atelectasis in one of the lower lobes; consider follow-up with a two-view chest study. Referred By: ?? Interpreted By: Maxine Lloyd DO, 09/26/2023 2:34 PM Narrative 09/26/2023 2:47 PM CDT CLINICAL INDICATION: 68-year-old male. ??Reason for examination: Fall, back pain. 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 Per ems pt had a witnessed ground level fall yesterday in which family denies any LOC or hitting head. 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 Per ems pt reported right arm and left knee pain in which they gave 30mg toradol IM. EXAMINATION: THORACIC SPINE RADIOGRAPHS LUMBAR SPINE RADIOGRAPHS TECHNIQUE: 4 view survey of the thoracic spine: AP and lateral and 2 lateral swimmer's lateral. 4. ??View survey of the lumbar spine COMPARISON: No previous imaging of the thoracic or the lumbar spine. FINDINGS: Thoracic spine: No evidence of acute fracture or traumatic malalignment. ??No acute compression fracture and without retropulsion of the posterior vertebral margins.. ??Thoracic vertebral bodies demonstrate normal alignment. ??Old superior endplate wedge compression deformity 3 and T9 and T8, each with sclerotic superior endplate. ??Approximately 10% loss of height of each segment. ??The remainder the thoracic vertebral segments demonstrate normal body height and contour. No posterior pneumothorax. ??On the lateral projection there appears to be consolidation or infiltrate or atelectasis in one of the lower lungs. ??Might consider follow-up with 2 view chest study. Lumbar spine: There are 5 nonrib-bearing lumbar vertebral segments. ??No evidence of acute fracture or traumatic malalignment. ??No acute compression fracture. ??There is intact hardware after posterior lumbar interbody fusion at L4 and L4-5 and S1. ??Expected normal position of titanium cage prosthetic disc spacers at L4-5 and L5-S1. ??Old wedge compression deformity superior endplate L1 sclerotic margin no retropulsion of the posterior vertebral body approximately 10% loss of height. ??The remainder of the lumbar segments demonstrate normal body height and contour. ??The posterior lumbar vertebral line is maintained. ??Facet alignment is preserved. ??Intervertebral disc spaces are intact. Sacrum intact. ??Sacroiliac joints are symmetric. Heavy circumferential plaque of the infrarenal aorta, moderate aortobiiliac disease and circumferential plaque of the inflow arteries. Procedure Note Maxine Lloyd MD - 09/26/2023 CLINICAL INDICATION: 68-year-old male. Reason for examination: Fall, back pain. 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 Pt is aox2 at baseline , wear oxygen prnand has right sided deficit from a previous stroke. Per ems pt reportedright arm and left knee pain in which they gave 30mg toradol IM. EXAMINATION: THORACIC SPINE RADIOGRAPHS LUMBAR SPINE RADIOGRAPHS TECHNIQUE: 4 view survey of the thoracic spine: AP and lateral and 2 lateralswimmer's lateral. 4. View survey of the lumbar spine COMPARISON: No previous imaging of the thoracic or the lumbar spine. FINDINGS: Thoracic spine: No evidence of acute fracture or traumatic malalignment. No acutecompression fracture and without retropulsion of the posterior vertebralmargins.. Thoracic vertebral bodies demonstrate normal alignment. Oldsuperior endplate wedge compression deformity 3 and T9 and T8, each withsclerotic superior endplate. Approximately 10% loss of height of eachsegment. The remainder the thoracic vertebral segments demonstrate normalbody height and contour. No posterior pneumothorax. On the lateral projection there appears to beconsolidation or infiltrate or atelectasis in one of the lower lungs.Might consider follow-up with 2 view chest study. Lumbar spine: There are 5 nonrib-bearing lumbar vertebral segments. No evidence ofacute fracture or traumatic malalignment. No acute compression fracture.There is intact hardware after posterior lumbar interbody fusion at L4 andL4-5 and S1. Expected normal position of titanium cage prosthetic discspacers at L4-5 and L5-S1. Old wedge compression deformity superiorendplate L1 sclerotic margin no retropulsion of the posterior vertebralbody approximately 10% loss of height. The remainder of the lumbarsegments demonstrate normal body height and contour. The posterior lumbarvertebral line is maintained. Facet alignment is preserved.Intervertebral disc spaces are intact. Sacrum intact. Sacroiliac joints are symmetric. Heavy circumferential plaque of the infrarenal aorta, moderateaortobiiliac disease and circumferential plaque of the inflow arteries. IMPRESSION: 1. No evidence of acute fracture or traumatic malalignment in thethoracic or lumbar spine. 2. Multilevel thoracic and L1 with old wedge compression deformitieswithout retropulsion of posterior margins 3. On the lateral thoracic spine radiograph there appears to beconsolidation or infiltrate or atelectasis in one of the lower lobes;consider follow-up with a two-view chest study. Referred By: Interpreted By: Maxine Lloyd DO, 09/26/2023 2:34 PM us Tyshawn Devi MD,PHD GENERAL IMAGING Final Resu lt * XR HIP VEDA 2V+PELVIS (09/26/2023 1:57 PM CDT) Anatomical Region Laterality Modality Hip, Pelvis Radiographic Tawanna ging 09/26/2023 2:29 PM CDT Impressions 09/26/2023 2:35 PM CDT =====IMPRESSION:===== 1. ??No acute osseous abnormalities. Ordered By: TYSHAWN DEVI Interpreted By: Tima Ponce MD, 09/26/2023 2:29 PM Narrative 09/26/2023 2:35 PM CDT Examination: Pelvis AP view and bilateral Hips Exam Date/Time: 09/26/2023 1:27 PM Reason For Exam: ??ground level fall, right hip pain ? Comparison: None Technique: ??AP view of the pelvis and bilateral hips were obtained. Findings: No acute fracture or dislocation. Hip joint spaces are preserved bilaterally. SI joints are unremarkable. No destructive osseous lytic or sclerotic lesions. ??Postoperative changes spine will be further described on spinal x- ray. Vascular calcifications are noted. Findings are suspicious for atherosclerotic change.. Procedure Note Tima Ponce MD - 09/26/2023 Examination: Pelvis AP view and bilateral Hips Exam Date/Time: 09/26/2023 1:27 PM Reason For Exam: ground level fall, right hip pain Comparison: None Technique: AP view of the pelvis and bilateral hips were obtained. Findings: No acute fracture or dislocation. Hip joint spaces are preservedbilaterally. SI joints are unremarkable. No destructive osseous lytic orsclerotic lesions. Postoperative changes spine will be further describedon spinal x-ray. Vascular calcifications are noted. Findings are suspicious foratherosclerotic change.. =====IMPRESSION:===== 1. No acute osseous abnormalities. Ordered By: TYSHAWN DEVI Interpreted By: Tima Ponce MD, 09/26/2023 2:29 PM us Tyshawn Devi MD,PHD GENERAL IMAGING Final Resu lt * CT CERV SPINE WO CON (09/26/2023 1:03 PM CDT) Anatomical Region Laterality Modality Spine Computed Tomogra phy 09/26/2023 1:10 PM CDT Impressions 09/26/2023 1:15 PM CDT =====IMPRESSION:===== 1. No CT imaging findings for acute cervical spine injury. No fracture or signal malalignment. 2. Multilevel degenerative spondylosis with multilevel significant spinal stenosis and multilevel foraminal narrowing. Ordered By: TYSHAWN DEVI Interpreted By: Haris Jiang MD, 09/26/2023 1:10 PM Narrative 09/26/2023 1:15 PM CDT Exam: CT Cervical Spine without contrast. Indication: 68 male. Ground-level fall. Right arm and left knee pain Neck trauma (Age >= 65y) ? . History of prior stroke Comparison: None Technique: Computed tomography of the cervical spine performed without contrast. A dose lowering technique was used for this procedure, which may include, but is not limited to, dose reduction technique, automated exposure control, the use of iterative reconstruction, and ALARA (As Low As Reasonably Achievable) / Image Gently techniques. CT finding: Upper cervical spine straightening. Normal vertebral body alignment without significant listhesis. Facets and lateral masses are aligned. Heterogeneous normal bone density. Normal vertebral body heights. No fractures seen. No focal finding. No focal lesion. Multilevel degenerative spondylosis with the mild and moderate disc degenerative change. Mild facet and uncovertebral hypertrophic spurring. There is multilevel spinal stenosis related to primarily disc protrusions and posterior discussed by complexes with the suspected moderately severe spinal stenosis at the C3-4 and C4-5, and moderate at C5-6 and C6-7. There is bilateral neural foraminal narrowing most prominent at C4-5 and C5-6. Procedure Note Haris Jiang MD - 09/26/2023 Exam: CT Cervical Spine without contrast. Indication: 68 male. Ground-level fall. Right arm and left knee pain Necktrauma (Age >= 65y) . History of prior stroke Comparison: None Technique: Computed tomography of the cervical spine performed withoutcontrast. A dose lowering technique was used for this procedure, which mayinclude, but is not limited to, dose reduction technique, automatedexposure control, the use of iterative reconstruction, and ALARA (As LowAs Reasonably Achievable) / Image Gently techniques. CT finding: Upper cervical spine straightening. Normal vertebral body alignment without significant listhesis. Facets andlateral masses are aligned. Heterogeneous normal bone density. Normal vertebral body heights. Nofractures seen. No focal finding. No focal lesion. Multilevel degenerativespondylosis with the mild and moderate disc degenerative change. Mildfacet and uncovertebral hypertrophic spurring. There is multilevel spinal stenosis related to primarily disc protrusionsand posterior discussed by complexes with the suspected moderately severespinal stenosis at the C3-4 and C4-5, and moderate at C5-6 and C6-7. Thereis bilateral neural foraminal narrowing most prominent at C4-5 and C5-6. =====IMPRESSION:===== 1. No CT imaging findings for acute cervical spine injury. No fracture orsignal malalignment. 2. Multilevel degenerative spondylosis with multilevel significant spinalstenosis and multilevel foraminal narrowing. Ordered By: TYSHAWN DEVI Interpreted By: Haris Jiang MD, 09/26/2023 1:10 PM us Tyshawn eDvi MD,PHD CT Final Resu lt * CT HEAD WO CON (09/26/2023 1:03 PM CDT) Anatomical Region Laterality Modality Head Computed Tomogra phy 09/26/2023 1:05 PM CDT Impressions 09/26/2023 1:15 PM CDT =====IMPRESSION:===== ?? No evidence of acute intracranial hemorrhage or extra-axial collection. Positive left craniotomy. Left cerebral encephalomalacia in the left middle cerebral artery distribution. Associated compensatory dilatation of the left lateral ventricle and minimal left midline shift noted. CT scan can be insensitive to acute ischemia. Ordered By: TYSHAWN DEVI Interpreted By: Tima Ponce MD, 09/26/2023 1:05 PM Narrative 09/26/2023 1:15 PM CDT EXAMINATION: CT of the Head EXAM DATE/TIME: 09/26/2023 12:54 PM REASON FOR EXAM: ??History of craniotomy Head trauma, minor (Age >= 65y) ? COMPARISON: None TECHNIQUE: Axial CT images of the brain are obtained from skull base through vertex without the use of IV contrast agent. A radiation dose lowering technique was used for this procedure, which may include but is not necessarily limited to, dose reduction technique, automated exposure control, the use of greater reconstruction, ALARA (as low as reasonably achievable) techniques, and imaged gently techniques. FINDINGS: Left craniotomy is noted. Severe encephalomalacia in the left cerebrum is noted with atrophy of the middle cerebral artery distribution. Compensatory dilatation of the left lateral ventricle is seen. Minimal midline shift to left is also noted, likely secondary to encephalomalacia in the left cerebrum. This measures 3 mm. No acute intracranial hemorrhage is seen. No obvious cerebral edema is noted. Ventricles are minimally enlarged with prominent sulci bilaterally indicated mild symmetric parenchymal volume loss. ??There are minimal areas of scattered hypodensities in the periventricular deep white matter which are nonspecific but likely secondary to mild small vessel ischemic disease. There are no extra-axial fluid collections seen. ??There is no obvious mass effect. There is no depressed skull fracture. ??Visualized paranasal sinuses are clear. ??Orbital contents Normal in their viewed portions. Procedure Note Tima Ponce MD - 09/26/2023 EXAMINATION: CT of the Head EXAM DATE/TIME: 09/26/2023 12:54 PM REASON FOR EXAM: History of craniotomy Head trauma, minor (Age >= 65y) COMPARISON: None TECHNIQUE: Axial CT images of the brain are obtained from skull basethrough vertex without the use of IV contrast agent. A radiation doselowering technique was used for this procedure, which may include but isnot necessarily limited to, dose reduction technique, automated exposurecontrol, the use of greater reconstruction, ALARA (as low as reasonablyachievable) techniques, and imaged gently techniques. FINDINGS: Left craniotomy is noted. Severe encephalomalacia in the leftcerebrum is noted with atrophy of the middle cerebral artery distribution.Compensatory dilatation of the left lateral ventricle is seen. Minimalmidline shift to left is also noted, likely secondary to encephalomalaciain the left cerebrum. This measures 3 mm. No acute intracranial hemorrhage is seen. No obvious cerebral edema isnoted. Ventricles are minimally enlarged with prominent sulci bilaterallyindicated mild symmetric parenchymal volume loss. There are minimal areasof scattered hypodensities in the periventricular deep white matter whichare nonspecific but likely secondary to mild small vessel ischemicdisease. There are no extra-axial fluid collections seen. There is noobvious mass effect. There is no depressed skull fracture. Visualizedparanasal sinuses are clear. Orbital contents Normal in their viewedportions. =====IMPRESSION:===== No evidence of acute intracranial hemorrhage or extra-axial collection. Positive left craniotomy. Left cerebral encephalomalacia in the left middle cerebral arterydistribution. Associated compensatory dilatation of the left lateralventricle and minimal left midline shift noted. CT scan can be insensitiveto acute ischemia. Ordered By: TYSHAWN DEVI Interpreted By: Tima Ponce MD, 09/26/2023 1:05 PM us Tyshawn Devi MD,PHD CT Final Resu lt * (ABNORMAL) COMPREHENSIVE METABOLIC PANEL (09/26/2023 12:41 PM CDT) GLUCOSE 106(H) 70 - 99 MG/DL 09/26/2023 1:13 PM CDT [facility] BUN 24(H) 7 - 18 MG/DL 09/26/2023 1:13 PM CDT [facility] CREATININE S/P/B 1.30 0.7 - 1.3 MG/DL 09/26/2023 1:13 PM CDT [facility] SODIUM S/P/B 141 136 - 145 MMOL/L 09/26/2023 1:13 PM CDT [facility] POTASSIUM S/P/B 3.9 3.5 - 5.1 MMOL/L 09/26/2023 1:13 PM CDT [facility] CHLORIDE S/P/B 110(H) 100 - 108 MMOL/L 09/26/2023 1:13 PM CDT [facility] CO2 27.7 21 - 32 MMOL/L 09/26/2023 1:13 PM CDT [facility] CALCIUM S/P/B 8.7 8.5 - 10.1 MG/DL 09/26/2023 1:13 PM CDT [facility] BILIRUBIN TOTAL S/P/B 0.2 0.2 - 1.2 MG/DL 09/26/2023 1:13 PM CDT [facility] Comment: THIS ASSAY IS NOT RECOMMENDED FOR PATIENTS UNDERGOING TREATMENT WITH ELTROMBOPAG DUE TO THE POTENTIAL FOR FALSELY ELEVATED RESULTS. TOTAL PROTEIN S/P/B 7.3 6.4 - 8.2 G/DL 09/26/2023 1:13 PM CDT [facility] ALBUMIN S/P/B 2.8(L) 3.4 - 5.0 G/DL 09/26/2023 1:13 PM CDT [facility] AST 9(L) 15 - 37 U/L 09/26/2023 1:13 PM T [facility] ALT 18 16 - 60 U/L 09/26/2023 1:13 PM T [facility] ALKALINE PHOSPHATASE S/P/B 119 50 - 136 U/L 09/26/2023 1:13 PM T [facility] ANION GAP 3.3(L) 5 - 15 MMOL/L 09/26/2023 1:13 PM T [facility] BUN CREATININE RATIO 18.5 6 - 26 09/26/2023 1:13 PM T [facility] A/G RATIO 0.6(L) 1.0 - 2.0 RATIO 09/26/2023 1:13 PM T [facility] GFR ESTIMATE 59(L) >90 ML/MIN/1.7 3 M2 09/26/2023 1:13 PM T [facility] Comment: NOTE: eGFR is not calculated for patients <18 years of age. This is an estimated GFR calculation using the new CKD EPI creatinine equation without race and so does not require a correction factor for race. This estimated GFR should not be used for calculating drug doses. 09/26/2023 12:4 1 PM CDT us Tyshawn Devi MD,PHD LABORATORY Final Resu lt [facility] [address] [place] [address], * (ABNORMAL) CBC W/DIFF AUTOMATED (09/26/2023 12:41 PM CDT) [facility] Signature WBC 9.90 4.5 - 11.0 x10'3/uL 09/26/2023 12:50 PM CDT [facility] RBC 3.41(L) 4.70 - 6.10 x10'6/uL 09/26/2023 12:50 PM CDT [facility] HGB 11.5(L) 14.0 - 18.0 G/DL 09/26/2023 12:50 PM CDT [facility] HCT 35.4(L) 43.0 - 54.0 % 09/26/2023 12:50 PM CDT [facility] MCV 103.8(H) 80.0 - 94.0 FL 09/26/2023 12:50 PM CDT [facility] MCH 33.7(H) 27.0 - 31.0 PG 09/26/2023 12:50 PM CDT [facility] MCHC 32.5 32.0 - 36.0 G/DL 09/26/2023 12:50 PM CDT [facility] RDW 12.8 11.5 - 14.5 % 09/26/2023 12:50 PM CDT [facility] PLT 273 130 - 400 x10'3/uL 09/26/2023 12:50 PM CDT [facility] MPV 9.6 9.3 - 12.2 FL 09/26/2023 12:50 PM CDT [facility] DIFFERENTIAL TYPE AUTOMATED DIFFERENTIAL 09/26/2023 12:50 PM CDT [facility] NEUTROPHILS % 84.7 % 09/26/2023 12:50 PM CDT [facility] LYMPHOCYTES % 7.4 % 09/26/2023 12:50 PM CDT [facility] MONOCYTES % 5.3 % 09/26/2023 12:50 PM CDT [facility] EOSINOPHILS 1.7 % 09/26/2023 12:50 PM CDT [facility] BASOPHILS 0.6 % 09/26/2023 12:50 PM CDT [facility] IMMATURE GRANS % 0.3 % 09/26/19 12:50 PM CDT [facility] ABS. NEUTROPHILS 8.39(H) 1.80 - 7.70 x10'3/uL 09/26/2023 12:50 PM CDT [facility] ABS. LYMPHOCYTES 0.73(L) 1.00 - 4.80 x10'3/uL 09/26/2023 12:50 PM CDT [facility] ABS. MONOCYTES 0.52 0.30 - 0.82 x10'3/uL 09/26/2023 12:50 PM CDT [facility] ABS. EOSINOPHILS 0.17 0.04 - 0.54 x10'3/uL 09/26/2023 12:50 PM CDT [facility] ABS. BASOPHILS 0.06 0.01 - 0.08 x10'3/uL 09/26/2023 12:50 PM CDT [facility] ABS. IMMATURE GRANULOCYTES 0.03 0.00 - 0.49 x10'3/uL 09/26/2023 12:50 PM CDT [facility] 09/26/2023 12:4 1 PM CDT us Tyshawn Devi MD,PHD LABORATORY Final Resu lt [facility] [address] [place] [address], documented in this encounter Visit Diagnoses Diagnosis Ground-level fall- Primary documented in this encounter Care Teams Marine Scientist Relationship Specialty Start Date End Date Garrett Pineda MD PCP - General FAMILY PRACTICE 02/07/20 10/16/23 documented as of this encounter
--- OUTSIDE RECORDS SUMMARY | 2024-04-03 17:31 | XMS_ITS | Encounter Summary ---
Author Organization [facility] Address [facility] [place] [address] [place] [address] Care Team Providers Care Steam Shovel Engineer Name Role Phone Garrett Pineda MD Primary Care Provider [phone] Reason for Visit * Reason Onset Date Comments Record Request 10/13/2020 Encounter Details Date Type Department Care Team (Late st Contact Info) Description 10/13/2020 Telephone [facility] Family Medicine - [place] [address] [place] [address] Garrett Pineda MD [address] [address] Record Request Social History Tobacco Use Types Packs/Day [...] as of this encounter Progress Notes * Veronica Pedersen MA - 10/16/2020 1:10 PM CDT I received the colonoscopy report and will fax to Dr. Pineda. * Veronica Pedersen MA - 10/13/2020 2:27 PM CDT I am faxing for the colonoscopy report * Veronica Pedersen MA - 10/13/2020 2:11 PM CDT Contacting patient for colorectal cancer screening result. My direct extension is [phone]. You can also reach me at: [phone] ([place]ENZO) OR [phone] (LEV) documented in this encounter Plan of Treatment Not on file documented as of this encounter Visit Diagnoses Not on filedocumented in this encounter Care Teams Steam Shovel Engineer Relationship Specialty Start Date End Date Garrett Pineda MD PCP - General FAMILY PRACTICE 02/07/20 10/16/23 documented as of this encounter
--- OUTSIDE RECORDS SUMMARY | 2024-04-03 17:31 | XMS_ITS | Clinical Summary ---
Author Organization [facility] Address [address] [place] [address]. [place] [address] [place] [address] Care Team Providers Care Support Services Tech Name Role Phone Evaristo Chapin DO Primary Care Provider [phone] Allergies No known active allergies Medications metoprolol tartrate 25 MG tablet Take 25 mg by mouth 2 (two) times daily. Active tamsulosin 0.4 MG Cap Take 0.4 mg by mouth 2 (two) times a day. Active amLODIPine (NORVASC) 10 MG tablet Take 1 tablet (10 mg total) by mouth daily. Active atorvastatin (LIPITOR) 20 MG tablet Take 1 tablet (20 mg total) by mouth daily. 4 Active buPROPion XL (WELLBUTRIN XL) 150 MG 24 hr tablet Take 1 tablet (150 mg total) by mouth every morning. 4 Active gabapentin (NEURONTIN) 300 MG capsule Take 1 capsule (300 mg total) by mouth see administration instructions. Take 1 capsule by mouth in the morning and 2 at night 4 Active HYDROcodone-ac etaminophen (NORCO) 5-325 MG tablet Take 1 tablet by mouth every 6 (six) hours as needed. Active levETIRAcetam (KEPPRA) 500 MG tablet Take 1 tablet (500 mg total) by mouth every 12 (twelve) hours. Active oxybutynin XL (DITROPAN-XL) 5 MG 24 hr tablet Take 1 tablet (5 mg total) by mouth daily. 4 Active sertraline (ZOLOFT) 100 MG tablet Take 1 tablet (100 mg total) by mouth daily. 4 Active aspirin (ASPIRIN LOW DOSE) 81 MG tablet Take 1 tablet (81 mg total) by mouth daily. Active Active Problems No known active problems Encounters Date Type Department Care Team Description 03/10/2024 Telephone [facility] Family Medicine - [place] [address] [place] [address] Evaristo Chapin DO Appointment Reminder from Last 3 Months Immunizations Name Administration Dates Next Due PFIZER COVID-19 (ORIGINAL FO RMULATION, PURPLE CAP) mRNA, LNP-S, PF, 30 MCG/0.3 ML DOSE 07/20/2020,06/28/2020 Social History Tobacco Use Types Packs/Day Years Used Date Smoking Tobacco: Former Cigarettes Smokeless Tobacco: Never Tobacco Cessation:Ready to Q uit: No Comments:nicotine patches Alcohol Use Standard Drinks/Week Comments No 0 (1 standard drink = 0.6 oz pur e alcohol) Sex and Gender Information Value Date Recorded Sex Assigned at Not on file Legal Sex Male 7:37 PM CDT Gender Identity Not on file Sexual Orientation Not on file Last Filed Vital Signs Vital Sign Reading [...] Mass Index 23.54 09/26/2023 12:22 PM CDT Plan of Treatment Health Maintenance Due Date Last Done Comments Hepatitis C 1972 Zoster Vaccines (1 of 2) 2004 Annual Medicare Wellness Visit 09/26/2019 Pneumococcal Vaccine: 65+ Years (2 of 2 - PCV) 10/19/2020 10/20/2019, 05/31/2015 COVID-19 Vaccine (3 - season) 2023 07/20/2020, 06/28/2020 Influenza Adult (#1) 2023 01/24/2020, 04/29/2019, 03/03/2019, Additional history exists DTaP, Tdap and Td Vaccines (4 - Td or Tdap) 05/30/2025 05/31/2015, 03/31/2005, 04/26/2004 Colorectal Cancer Screening Colonoscopy (10 Years) 07/26/2027 07/25/2017 RSV Immunization or 60+ Years (1 - 1-dose 75+ series) 2029 Meningococcal Vaccine Aged Out No keisha myesha eligible based on patient's age to complete this topic RSV Immunizations Under 20 Months Aged Out No longer eligible based on patient's age to complete this topic Procedures Procedure Name Priority Date/Time Associated Diagnosis Comments COLONOSCOPY GENERIC (SCAN ORDER) 07/25/2017 from Last 3 Months or Most Recently Relevant to Health Maintenance Results * COLONOSCOPY GENERIC (07/25/2017) 07/25/2017 Narrative 07/25/2017 Ordered by an unspecified provider. us Documents Scanned SCANNING Final Result from Last 3 Months or Most Recently Relevant to Health Maintenance Insurance MEDICARE [facility] Care Teams Support Services Tech Relationship Specialty Start Date End Date Evaristo Chapin [place] [place] [address] PCP - General FAMILY PRACTICE 10/17/23
--- OUTSIDE RECORDS SUMMARY | 2024-04-03 17:31 | XMS_ITS | Encounter Summary ---
Author Organization [facility] Address [address] [place] [address]. [place] [address] [place] [address] Care Team Providers Care Customer Experience Specialist Name Role Phone Evaristo Chapin DO Primary Care Provider [phone] Reason for Visit * Reason Onset Date Comments Appointment Reminder 03/10/2024 Encounter Details Date Type Department Care Team (Late st Contact Info) Description 03/10/2024 Telephone [facility] Family Medicine [facility] [place] [address] [place] [phone] Evaristo Chapin DO [address] [place] [address] Appointment Reminder Social History Tobacco Use Types Packs/Day Years [...] as of this encounter Progress Notes * Linsey Knowles - 03/10/2024 11:25 AM CST LVM for patient to call to see if he wanted to reschedule his missed appointment. T CREASER documented in this encounter Plan of Treatment Not on file documented as of this encounter Visit Diagnoses Not on filedocumented in this encounter Care Teams Customer Experience Specialist Relationship Specialty Start Date End Date Evaristo Chapin DO [address] [place] [address] PCP - General FAMILY PRACTICE 10/17/23 documented as of this encounter
--- OUTSIDE RECORDS SUMMARY | 2024-04-03 17:31 | XMS_ITS | Encounter Summary ---
Author Organization [facility] Address [address] [place] [address]. [place] [address] [place] [address] Care Team Providers Care Chief Hydroelectric Station Operator Name Role Phone Garrett Pineda MD Primary Care Provider [phone] Reason for Visit * Reason Onset Date Comments Appointment Request 09/16/2023 Encounter Details Date Type Department Care Team (Late st Contact Info) Description 09/16/2023 Telephone [facility] Family Medicine - [address] [address] Evaristo Chapin, DO [address] [place] [address] Appointment Request Social History Tobacco Use Types [...] as of this encounter Progress Notes * Karla Shipman - 09/16/2023 2:26 PM CDT Called pt to schedule an appt. Pt is on list of patients not yet seen this year by a provider Per [facility], pt's PCP is Dr Chapin. Pt will need to be scheduled for a new patient/enhanced encounter appointment. No answer, lvm for pt to call back and get scheduled with Dr Chapin. documented in this encounter Plan of Treatment Not on file documented as of this encounter Visit Diagnoses Not on filedocumented in this encounter Care Teams Chief Hydroelectric Station Operator Relationship Specialty Start Date End Date Garrett Pineda MD PCP - General FAMILY PRACTICE 02/07/20 10/16/23 documented as of this encounter
--- OUTSIDE RECORDS SUMMARY | 2024-04-03 17:31 | XMS_ITS | Encounter Summary ---
Author Organization [facility] Address [address] [place] [address]. [place], [place] [address] [place] [address] Care Team Providers Care Or Manager Name Role Phone Garrett Pineda MD Primary Care Provider [phone] Encounter Details Date Type Department Care Team (Latest Contact Info) Description 09/26/2023 Travel Social History Tobacco Use Types Packs/Day Years [...] on file documented as of this encounter Plan of Treatment Not on file documented as of this encounter Visit Diagnoses Not on filedocumented in this encounter Care Teams Or Manager Relationship Specialty Start Date End Date Garrett Pineda MD PCP - General FAMILY PRACTICE 02/07/20 10/16/23 documented as of this encounter
--- OUTSIDE RECORDS SUMMARY | 2024-04-03 17:32 | XMS_ITS | Encounter Summary ---
Author Organization [facility] Address [address] [place] [address]. [place] [address] [place] [address] Care Team Providers Care Iron Caster Name Role Phone Shawn Berkowitz MD Primary Care Provider [phone] Garrett Pineda MD Primary Care Provider [phone] Reason for Visit * Reason Comments Colonoscopy Report (SCAN) Encounter Details Date Type Department Care Team ([facility] Contact Info) Description 07/25/2017 Scan HEALTH INFO [facility] Scanned, Documents Colonoscopy Report (SCAN) Social History Tobacco Use Types Packs/Day Years Used Date Smoking Tobacco: Never Assessed Sex and Gender Information Value Date Recorded Sex Assigned at Not on file Legal Sex Male 7:37 PM CDT Gender Identity Not on file Sexual Orientation Not on file COVID-19 Exposure Response Date Recorded In the last month, have you been in contact with someone who was confirmed or suspected to have Coronavirus / COVID-19? No / Unsure 07/20/2020 12:44 PM CDT documented as of this encounter Plan of Treatment Not on file documented as of this encounter Procedures Procedure Name Priority Date/Time Associated Diagnosis Comments COLONOSCOPY GENERIC (SCAN ORDER) 07/25/2017 documented in this encounter Results * COLONOSCOPY GENERIC (07/25/2017) 07/25/2017 Narrative 07/25/2017 Ordered by an unspecified provider. us Documents Scanned SCANNING Final Result documented in this encounter Visit Diagnoses Not on filedocumented in this encounter Care Teams Iron Caster Relationship Specialty Start Date End Date Shawn Berkowitz MD [address] [place] [address] PCP - General INTERNAL MEDICINE 08/28/17 02/06/20 Garrett Pineda MD [address] [place] [address] PCP - General FAMILY PRACTICE 02/07/20 10/16/23 documented as of this encounter
--- OUTSIDE RECORDS SUMMARY | 2024-04-03 17:32 | XMS_ITS | Encounter Summary ---
Author Organization [facility] Address [address] [place] [address]. [place], [place] [address] [place] [address] Care Team Providers Care Mechanic Helper Name Role Phone Unavailable Primary Care Provider Unavailabl e Encounter Details Date Type Department Care Team (Late st Contact Info) Description 02/04/2000 Abstract [facility] Diagnostic Imaging [address] [place], [place] [id number] , Quan Sumner MD Social History Tobacco Use Types Packs/Day Years [...]
--- OUTSIDE RECORDS SUMMARY | 2024-04-03 17:32 | XMS_ITS | Encounter Summary ---
Author Organization [facility] Address [address] [place] [address]. [place], [place] [address] [place] [address] Care Team Providers Care Curb Setter Helper Name Role Phone Unavailable Primary Care Provider Unavailabl e Encounter Details Date Type Department Care Team (Late st Contact Info) Description 05/31/1998 Abstract [facility] [place], [place] [id number] , Generic Conversion, Social History Tobacco Use Types Packs/Day Years [...]
--- OUTSIDE RECORDS SUMMARY | 2024-04-03 17:32 | XMS_ITS | Encounter Summary ---
Author Organization [facility] Address [address] [place] [address]. [place] [address] [place] [address] Care Team Providers Care Resizer Operator Name Role Phone Garrett Pineda MD Primary Care Provider [phone] Encounter Details Date Type Department Care Team (Latest Contact Info) Description 07/20/2020 Travel Social History Tobacco Use Types Packs/Day [...] on filedocumented in this encounter Care Teams Resizer Operator Relationship Specialty Start Date End Date Garrett Pineda MD PCP - General FAMILY PRACTICE 02/07/20 10/16/23 documented as of this encounter
--- OUTSIDE RECORDS SUMMARY | 2024-04-03 17:32 | XMS_ITS | Encounter Summary ---
Author Organization [facility] Address [address] [place] [address]. [place] [address] [place] [address] Care Team Providers Care Soil Science Professor Name Role Phone Shawn Berkowitz MD Primary Care Provider [phone] Encounter Details Date Type Department Care Team (Latest Contact Info) Description 09/05/2017 Abstract [facility] Medical Group Social History Tobacco Use Types Packs/Day Years Used Date Smoking Tobacco: Every Day Cigarettes Smokeless Tobacco: Never Alcohol Use Standard Drinks/Week Comments No 0 [...] on filedocumented in this encounter Care Teams Soil Science Professor Relationship Specialty Start Date End Date Shawn Berkowitz MD [address] [place] [address] PCP - General INTERNAL MEDICINE 08/28/17 02/06/20 documented as of this encounter
--- OUTSIDE RECORDS SUMMARY | 2024-04-03 17:32 | XMS_ITS | Encounter Summary ---
Author Organization [facility] Address [address] [place] [address]. [place] [address] [place] [address] Care Team Providers Care Race Relations Adviser Name Role Phone Shawn Berkowitz MD Primary Care Provider [phone] Encounter Details Date Type Department Care Team (Latest Contact Info) Description 11/11/2017 Abstract [facility] Gasper Ross MD [address] [facility] [address] [place], [place] [phone] Social History Tobacco Use Types Packs/Day Years [...] Sign Reading Time Taken Comments Blood Pressure 111/59 11/11/2017 1:18 PM CDT Pulse 68 11/11/2017 1:18 PM CDT Temperature - - Respiratory Rate - - Oxygen Saturation - - Inhaled Oxygen Concentration - - Weight - - Height - - Body Mass Index - - documented in this encounter Progress Notes * Gasper Ross MD - 11/11/2017 1:00 PM CDT Reason For Visit Other: right shoulder pain History of Present Illness HPI Patient is back again for his right shoulder. He had a two-part proximal humerus fracture back in August. Because of his stroke involving limited or no function to his right upper extremity, we treatedthis nonoperatively. I did offer him a cortisone injection if he was painful when I saw him last, but it was declined at that time. He is back now requesting that cortisone injection. PHYSICAL EXAM On exam, he had no significant swelling, warmth or erythema at the right shoulder. DISCUSSION SUMMARY I injected the subacromial space of his right shoulder with 40 mg of Kenalog and local anesthetic and told him he could have this every 6 months at most, if needed. Active Problems 1. Acid reflux (530.81) (K21.9) 2. Anxiety (300.00) (F41.9) 3. CAD (coronary artery disease) (414.00) (I25.10) 4. Fracture, humerus (812.20) (S42.309A) 5. Full dentures (V45.84) (Z97.2,K08.109) 6. Osteoporosis (733.00) (M81.0) 7. Seizures (780.39) (R56.9) 8. Shoulder pain (719.41) (M25.519) 9. Wears glasses (V49.89) (Z97.3) Past Medical History 1. History of stroke (V12.54) (Z86.73) 2. History of transient cerebral ischemia (V12.54) (Z86.73) 3. History of Right hand dominant Surgical History 1. no history of surgery Family History Mother 1. No pertinent family history Father 2. No pertinent family history Social History ?? Current smoker (305.1) (F17.200) ?? Current Meds 1. Amitriptyline HCl - 50 MG Oral Tablet; Therapy: 01Jul2017 to Recorded 2. Amitriptyline HCl - 75 MG Oral Tablet; Therapy: 06Nov2017 to Recorded 3. AmLODIPine Besylate 10 MG Oral Tablet; Therapy: (Recorded:04Sep2017) to Recorded 4. Amoxicillin 500 MG Oral Capsule; Therapy: 12Jun2017 to Recorded 5. Aspirin Low Dose 81 MG TABS; Therapy: (Recorded:04Sep2017) to Recorded 6. Atorvastatin Calcium 40 MG Oral Tablet; Therapy: 19Aug2017 to Recorded 7. Cymbalta 30 MG Oral Capsule Delayed Release Particles; Therapy: (Recorded:04Sep2017) to Recorded 8. DULoxetine HCl - 60 MG Oral Capsule Delayed Release Particles; Therapy: 03Aug2017 to Recorded 9. Hydrocodone-Acetaminophen 5-325 MG Oral Tablet; Therapy: 28Aug2017 to Recorded 10. Hydrocodone-Acetaminophen 7.5-325 MG Oral Tablet; Therapy: (Recorded:04Sep2017) to Recorded 11. LevETIRAcetam 500 MG Oral Tablet; Therapy: 13Jun2017 to Recorded 12. Medrol 2 MG Oral Tablet; Therapy: (Recorded:04Sep2017) to Recorded 13. Metoprolol Tartrate 25 MG Oral Tablet; Therapy: 04Jun2017 to Recorded 14. Neurontin TABS; Therapy: (Recorded:04Sep2017) to Recorded 15. Nortriptyline HCl CAPS; Therapy: (Recorded:04Sep2017) to Recorded 16. PEG 3350-KCl-Na Bicarb-NaCl 420 GM Oral Solution Reconstituted; Therapy: 22Jul2017 to Recorded 17. Promethazine HCl - 25 MG Oral Tablet; Therapy: 22Jul2017 to Recorded 18. RaNITidine HCl - 300 MG Oral Tablet; Therapy: 20Aug2017 to Recorded 19. Tamsulosin HCl - 0.4 MG Oral Capsule; Therapy: (Recorded:04Sep2017) to Recorded Allergies 1. codeine Vitals Recorded: [id number] 01:18PM Heart Rate 68 Systolic 111 Diastolic 59 Unable to obtain weight Patient in wheelchair Plan Fracture, humerus 1. Triamcinolone Acetonide 40 MG/ML Injection Suspension (Kenalog) Formulary Override Reason: Drug is unfamiliar, will consider in future Signatures Electronically signed by : Gasper Ross M.D.; Nov 12 2017 11:54AM LOCAL TELEPHONE OPERATOR (Author) documented in this encounter Plan of Treatment Not on file documented as of this encounter Visit Diagnoses Not on filedocumented in this encounter Care Teams Race Relations Adviser Relationship Specialty Start Date End Date Shawn Berkowitz MD [address] [facility] [facility] [place] [address] PCP - General INTERNAL MEDICINE 08/28/17 02/06/20 documented as of this encounter
--- OUTSIDE RECORDS SUMMARY | 2024-04-03 17:32 | XMS_ITS | Encounter Summary ---
Author Organization [facility] Address [address] [place] [address]. [place] [address] [place] [address] Care Team Providers Care Welder Plasma Arc Name Role Phone Shawn Berkowitz MD Primary Care Provider [phone] Reason for Visit * Reason Comments Fall Encounter Details Date Type Department Care Team ([facility] st Contact Info) Description 08/28/2017 10:21 AM CDT - 08/28/2017 1:07 PM CDT Emergency [facility] Emergency Room [place], [place] [id number] Mary Kay Richmond PA-C [address] [place] [id number] Fall Discharge Disposition: Home or Self Care (Routine Discharge) Social History Tobacco Use Types Packs/Day Years Used Date Smoking Tobacco: Every Day Cigarettes Smokeless Tobacco: Never Tobacco Cessation:Ready to Q uit: No Alcohol Use Standard Drinks/Week Comments No 0 (1 standard drink = 0.6 oz pur e alcohol) Sex and Gender Information Value Date Recorded Sex Assigned at Not on file Legal Sex Male 7:37 PM CDT Gender Identity Not on file Sexual Orientation Not on file documented as of this encounter Last Filed Vital Signs Vital Sign Reading Time Taken Comments Blood Pressure 143/49 08/28/2017 12:45 PM CDT Pulse 74 08/28/2017 12:45 PM CDT Temperature 36.4 ??C (97.6 ??F) 08/28/2017 10:32 AM C DT Respiratory Rate 16 08/28/2017 12:45 PM CDT Oxygen Saturation 92% 08/28/2017 12:45 PM CDT Inhaled Oxygen Concentration - - Weight 83.5 kg (184 lb) 08/28/2017 10:32 AM CDT Height 175.3 cm (5' 9 ) 08/28/2017 10:32 AM CDT Body Mass Index 27.17 08/28/2017 10:32 AM CDT documented in this encounter Discharge Instructions * Discharge Instructions* Mary Kay Richmond PA-C - 08/28/2017 1:11 PM CDT Images from the original note were not included. Take the norco as needed for severe pain. Do not drive while taking this, it can make you drowsy. Continue to wear the sling until you are seen by dr. Astudillo. You need to call his office when you aredischarged today to discuss follow-up. You also need to notify your primary doctor and pain management doctor of your fracture and that we have put you on a short course of pain medication. If new orworsening symptoms develop, return to er. Patient Education Upper Arm Fracture About this topic The bone in your upper arm is your humerus. It is a part of both your shoulder and elbow joints. Anupper arm fracture may be a crack or break anywhere in the bone. You may have problems moving your shoulder or elbow. This often is from a fall, car crash, or direct blow to the upper arm. The treatment is based on how bad the break is. You may need a cast or splint. Other breaks need surgery to fix them. What care is needed at home? ?? Ask your doctor what you need to do when you go home. Make sure you ask questions if you do not understand what the doctor says. This way you will know what you need to do. ?? Rest your arm. Your doctor may have you wear a splint, brace, or cast to limit your movement. ?? Do not sleep on the side with the fracture. You may sleep better with your head and arm propped up with a pillow. ?? Do not push, pull, lift, or strain the broken arm, or raise it over your head. Ask your doctor what movement is safe to do. ?? Place an ice pack or a bag of frozen peas wrapped in a towel over the painful part. Never put ice right on the skin. Do not leave the ice on more than 10 to 15 minutes at a time. ?? Prop your arm on pillows to help with swelling. Try to keep your lower arm raised above your heart. ?? Wiggle your fingers often. This will help blood flow. Move your shoulders often so you do not get shoulder pain. ?? Wear a sling if the doctor tells you to. ?? Ask about cast or splint care. What follow-up care is needed? Your doctor may ask you to make visits to the office to check on your progress. You may need more x-rays. The doctor may need to remove your cast, splint, brace or stitches. Be sure to keep these visits. Your doctor may order physical therapy or an exercise program for you. What drugs may be needed? The doctor may order drugs to: ?? Help with pain and swelling ?? Treat infection Will physical activity be limited? ?? A fracture takes about 6 to 10 weeks to heal. Based on the type of fracture, it may take up to ayear for full recovery. You may have to limit your activity. Talk to your doctor about the right amount of activity for you. ?? Ask your doctor when it is safe for you to: ?? Play sports ?? Drive ?? Work ?? Exercise What problems could happen? ?? Infection ?? Damage to nerves and blood vessels ?? Less movement of your elbow and shoulder ?? Fracture does not mend ?? Avascular necrosis of the head of the humerus if the blood supply to this part of the bone was damaged with the fracture. What can be done to prevent this health problem? ?? Take extra care to avoid falling. Falls are a common cause of fractures. ?? Use protective equipment when playing sports. ?? Eat foods rich in calcium and vitamin D. This will help keep your bones strong. When do I need to call the doctor? ?? Signs of wound infection. These include swelling, redness, warmth around the wound; too much pain when touched; wound will not heal; yellowish, greenish, or bloody discharge; foul smell coming from the cut site; cut site opens up. ?? Hand or fingers turn blue, feel cold, or feel numb or tingling ?? More severe pain or swelling ?? You have a cast, splint, or brace and it feels too tight ?? You are not feeling better in 2 to 3 days or you are feeling worse Where can I learn more? [employer] http://orthoinfo.aaos.org/topic.cfm?knmbe=I77484 http://orthoinfo.aaos.org/topic.cfm?dvffo=P69163 [employer] http://handcare.ass.org/Hand-Anatomy/Details-Page/ArticleID/82274/Elbow-Fractur es.aspx http://handcare.ass.org/Hand-Anatomy/Details-Page/ArticleID/80234/Shoulder-Frac tures.aspx Last Reviewed Date 2014-07-06 Consumer Information Use and Disclaimer This information is not specific medical advice and does not replace information you receive from your health care provider. This is only a brief summary of general information. It does NOT include all information about conditions, illnesses, injuries, tests, procedures, treatments, therapies, discharge instructions or life-style choices that may apply to you. You must talk with your health care provider for complete information about your health and treatment options. This information should not be used to decide whether or not to accept your health care provider???s advice, instructions or recommendations. Only your health care provider has the knowledge and training to provide advice that is right for you. Copyright Copyright ?? 2018 [employer] and its affiliates and/or licensors. All rights reserved. documented in this encounter Medications at Time of Discharge metoprolol tartrate 25 MG tablet Take 25 mg by mouth 2 (two) times daily. tamsulosin 0.4 MG Cap Take 0.4 mg by mouth 2 (two) times a day. amitriptyline 50 MG tablet Take 50 mg by mouth nightly at bedtime. 01/09/2018 amlodipine 10 MG tablet Take 10 mg by mouth daily. 01/09/2018 aspirin EC 325 MG EC tablet Take 325 mg by mouth daily. 01/09/2018 atorvastatin 40 MG tablet Take 40 mg by mouth daily. 09/26/2023 duloxetine 60 MG capsule Take 60 mg by mouth daily. 01/09/2018 gabapentin 800 MG tablet Take 800 mg by mouth 2 (two) times daily. 01/09/2018 levETIRAcetam 500 MG tablet Take 500 mg by mouth 2 (two) times daily. 01/09/2018 ranitidine 300 MG tablet Take 300 mg by mouth 2 (two) times daily. 01/09/2018 documented as of this encounter ED Notes * Mary Kay Richmond PA-C - 08/28/2017 11:03 AM CDT Chief Complaint Chief Complaint Patient presents with ??? Fall History of Present Illness HPI Comments: Pt is a 61 yo male with hx of previous stroke with right sided weakness and deficits who presents to er c/o R arm pain. The pt was at his pain mgmt doctor's office yesterday and while being pushed out to his car he slipped out of his wheelchair and fell onto his R arm. Per the pt's , she had just stopped the wheelchair and was walking around to help him stand up when he slid outof the wheel chair and onto the ground. The states that a nurse came out and put a dressing on his elbow and said to put ice on his arm. He did not call his pcp or go to another facility yesterday for evaluation. He is c/o right elbow and forearm pain. Abrasions noted to posterior right elbow that are from the fall and superficial skin tears and bruising noted to right forearm that the states are from bumping the oro at home. She states that they have narrow hallways at home andthe pt is constantly bumping and scraping his arms when he uses his walker. He has chronic back pain but denies any changes or new symptoms since falling. He currently is on gabapentin and amitriptyline for chronic pain. He did not hit his head or have any loc yesterday. He denies any brian, dizziness, chest pain, sob, or abd pain. Patient is a 61-year-old male presenting with fall. History provided by: Patient Fall Pertinent negatives include no fever, no abdominal pain, no nausea, no vomiting, no hematuria and no headaches. Medical History ALLERGIES: No Known Allergies MEDICATIONS: Prior to Admission medications Medication Sig Start Date End Date Taking? Authorizing Provider amitriptyline 50 MG tablet Take 50 mg by mouth nightly at bedtime. Yes Doc Abstract amlodipine 10 MG tablet Take 10 mg by mouth daily. Yes Doc Abstract aspirin EC 325 MG EC tablet Take 325 mg by mouth daily. Yes Doc Abstract atorvastatin 40 MG tablet Take 40 mg by mouth nightly at bedtime. Yes Doc Abstract duloxetine 60 MG capsule Take 60 mg by mouth daily. Yes Doc Abstract gabapentin 800 MG tablet Take 800 mg by mouth 2 (two) times daily. Yes Doc Abstract hydrocodone-acetaminophen 5-325 MG tablet Take 1 tablet by mouth every 6 (six) hours as needed for Pain. 08/28/17 09/02/17 Yes Mary Kay Richmond PA-C levETIRAcetam 500 MG tablet Take 500 mg by mouth 2 (two) times daily. Yes Doc Abstract metoprolol tartrate 25 MG tablet Take 25 mg by mouth 2 (two) times daily. Yes Doc Abstract ranitidine 300 MG tablet Take 300 mg by mouth 2 (two) times daily. Yes Doc Abstract tamsulosin 0.4 MG Cap Take 0.4 mg by mouth nightly at bedtime. Yes Doc Abstract PAST MEDICAL HISTORY: Past Medical History: Diagnosis Date ??? Arthritis ??? Back pain ??? Hypercholesteremia ??? Stroke PAST SURGICAL HISTORY: Past Surgical History: Procedure Laterality Date ??? BACK SURGERY R/T INJURY ??? BRAIN SURGERY PUMP R/T STROKE ??? VASCULAR SURGERY RIGHT CAROTID FAMILY HISTORY: No family history on file. SOCIAL HISTORY: Social History Substance Use Topics ??? Smoking status: Current Every Day Smoker Packs/day: 0.50 Types: Cigarettes ??? Smokeless tobacco: Never Used ??? Alcohol use No Review of Systems Review of Systems Constitutional: Negative for activity change, appetite change, chills, diaphoresis, fatigue and fever. HENT: Negative for congestion, facial swelling, rhinorrhea and sinus pressure. Eyes: Negative for photophobia, pain and visual disturbance. Respiratory: Negative for cough, chest tightness and shortness of breath. Cardiovascular: Negative for chest pain, palpitations and leg swelling. Gastrointestinal: Negative for abdominal pain, diarrhea, nausea and vomiting. Genitourinary: Negative for dysuria, flank pain, frequency, hematuria and urgency. Musculoskeletal: Positive for arthralgias (R elbow and forearm injury) and gait problem (chronic R sided weakness, uses a walker). Negative for back pain, neck pain and neck stiffness. Skin: Positive for wound (R posterior elbow abrasions. skin tears to R forearm.). Negative for color change, pallor and rash. Neurological: Positive for syncope and speech difficulty (slow speech, chronic due to stroke). Negative for dizziness, seizures, light-headedness and headaches. Physical Exam Filed Vitals: 08/28/17 1032 08/28/17 1245 BP: 123/61 143/49 Pulse: 89 74 Resp: 18 16 Temp: 97.6 ??F (36.4 ??C) TempSrc: Oral SpO2: 95% 92% Weight: 83.5 kg (184 lb) Height: 5' 9 (1.753 m) Physical Exam Diagnostic Studies / Procedures ELECTROCARDIOGRAMS: No results found for this visit on 08/28/17. LABORATORY STUDIES: No results found for this visit on 08/28/17. IMAGING STUDIES XR HUMERUS RT MIN 2V Final Result by User, [id number] (08/28 1224) Examination: 2 views right humerus Exam date/time: 08/28/2017 11:10 AM Reason For Exam: Trauma. Fall from wheelchair. Extreme pain Comparison: None Technique: AP and lateral radiographs of the right humerus Findings: There is a cortex width displaced fracture of the greater tuberosity proximal humerus. Fracture probably involves the surgical neck with the subtle linear lucency seen along the more medial aspect of the humeral head. Assessment is limited given positioning and background osteopenia. Humeral head remains aligned with the glenoid. Overall heterogeneous mottled density of the humerus with cortical thickening and tunneling. No focal erosive or destructive changes seen. Adjacent partially seen right ribs appear normal density. =====IMPRESSION:===== 1. Right proximal humeral probable surgical neck cortex width displaced fracture. See above. 2. No dislocation. 3. Abnormal heterogeneous/mottled density of the humerus areas of cortical sclerosis, lucency and tunneling; appearance is nonspecific. In combination with the prominent wrist and probable elbow periarticular osteopenia in this patient with history of stroke, disuse osteopenia/altered mineralization could have this appearance. Correlate with history. Other etiologies not excluded. Consider skeletal survey to assess for distribution of abnormalities. ELBOW RT M3V Final Result by User, [id number] (08/28 1221) Examination: 3 views right elbow Exam date/time: 08/28/2017 11:10 AM Reason For Exam: Trauma. Fall from wheelchair, right elbow pain and abrasion Comparison: None Technique: AP, oblique, and lateral radiographs of the right elbow Findings: No acute fracture dislocation seen. Assessment for effusions is limited given suboptimal lateral positioning. There is a moderate arthritis about the elbow. There is slightly heterogeneous appearance of the osseous matrix of the distal numerous. There appears to be cortical thickening and focal lucencies. Soft tissues are grossly unremarkable. =====IMPRESSION:===== 1. No acute fracture dislocation. 2. Limited assessment for effusion suboptimal lateral view. 3. Mottled dizziness density of the distal humerus; the (please see dedicated humerus radiographs). Appearance is unusual along with the prominent periarticular osteopenia at the wrist and possibly at the elbow as well. Given history of stroke disuse osteopenia, altered mineralization is in the differential among other etiologies. Consider nonemergent follow-up skeletal survey to assess for distribution of findings. FOREARM RT 2V Final Result by User, [id number] (08/28 1211) Examination: 2 views right forearm Exam date/time: 08/28/2017 11:10 AM Reason For Exam: Trauma. Fall from wheelchair. Right forearm Comparison: None Technique: AP and lateral radiographs of the right forearm Findings: No acute or displaced fracture identified. Alignment is anatomic. There is wrist moderate periarticular osteopenia. No erosive or destructive changes seen. No soft tissue abnormality identified. =====IMPRESSION:===== 1. No right forearm fracture or other acute radiographic abnormality. WRIST RT MIN 3V Final Result by User, [id number] (08/28 1205) Examination: Right wrist 3 views Exam date/time: 08/28/2017 11:10 AM Reason For Exam: Trauma. Fall from wheelchair. Right arm/wrist pain Comparison: None Technique: AP, AP ulnar deviated, oblique and lateral views of the right wrist were obtained. Findings: No convincing acute fractures seen. There is no dislocation. There is no scapholunate widening. There is a generalized periarticular osteopenia. No focal erosive or destructive changes seen. Xneh-jy-yaheezvz degenerative marginal spurring present. Visualized soft tissues unremarkable. =====IMPRESSION:===== 1. No right wrist acute fracture or dislocation identified. 2. Prominent periarticular osteopenia. 3. Mild arthritic changes. Course / Medical Decision Making I spoke with dr. astudillo at 1240. He suggested pt be placed in sling and swathe and f/u with him in the office. I discussed pain control with dr. castellanos due to pt's hx of chronic pain and him seeing a pain mgmt doctor at the [place]. She recommended giving him norco here and d/c home with rx for norco for 5-7 days. Clinical Impression Right humeral fracture (Primary) Abrasion of elbow, right Disposition: Discharge Mary Kay Richmond PA-C 08/28/17 1312 Cosigned by Tanika Castellanos MD at 08/28/2017 6:04 PM CDT Associated attestation - Tanika Castellanos MD - 08/28/2017 6:04 PM CDT I, TANIKA CASTELLANOS MD, performed a History and Physical examination of the patient and discussed the management with the Mid-Level Provider. I reviewed the MLP's note and agree with the findings and plan of care, except as I have documented. * Arvind Hong RN - 08/28/2017 10:22 AM CDT Patient arrived to ed via triage due to fall. Patient was at [place] yesterday for medical appointments when the patient fell out of wheelchair and landed on ground. Accident report filled out at [place] and patient went home. Patient reports laceration to right elbow. Patient states pain to right arm from hand to elbow. Patient also states back pain. Patient had stroke in 2014. Patient has right side weakness with pain. documented in this encounter Plan of Treatment Not on file documented as of this encounter Procedures Procedure Name Priority Date/Time Associated Diagnosis Comments XR WRIST RT MIN 3V STAT 08/28/2017 11 :46 AM CDT XR HUMERUS RT MIN 2V STAT 08/28/2017 11:46 AM CDT XR FOREARM RT 2V STAT 08/28/2017 11:4 6 AM CDT XR ELBOW RT M3V STAT 08/28/2017 11:46 AM CDT documented in this encounter Results * XR WRIST RT MIN 3V (08/28/2017 11:46 AM CDT) Anatomical Region Laterality Modality Wrist Radiographic Tawanna ging 08/28/2017 11:5 4 AM CDT Impressions 08/28/2017 12:04 PM CDT =====IMPRESSION:===== 1. No right wrist acute fracture or dislocation identified. 2. Prominent periarticular osteopenia. 3. Mild arthritic changes. Narrative 08/28/2017 12:04 PM CDT Examination: Right wrist 3 views Exam date/time: 08/28/2017 11:10 AM Reason For Exam: Trauma. Fall from wheelchair. Right arm/wrist pain Comparison: None Technique: AP, AP ulnar deviated, oblique and lateral views of the right wrist were obtained. Findings: No convincing acute fractures seen. There is no dislocation. There is no scapholunate widening. There is a generalized periarticular osteopenia. No focal erosive or destructive changes seen. Sluo-jn-fymnozug degenerative marginal spurring present. Visualized soft tissues unremarkable. Procedure Note Haris Jiang MD - 08/28/2017 Examination: Right wrist 3 views Exam date/time: 08/28/2017 11:10 AM Reason For Exam: Trauma. Fall from wheelchair. Right arm/wrist pain Comparison: None Technique: AP, AP ulnar deviated, oblique and lateral views of the right wrist were obtained. Findings: No convincing acute fractures seen. There is no dislocation. There is no scapholunate widening. There is a generalized periarticular osteopenia. No focal erosive or destructive changes seen. Qkgb-mp-zludlybj degenerative marginal spurring present. Visualized soft tissues unremarkable. =====IMPRESSION:===== 1. No right wrist acute fracture or dislocation identified. 2. Prominent periarticular osteopenia. 3. Mild arthritic changes. Mary Kay Richmond PA-C GENERAL IMAGING Final Result * XR FOREARM RT 2V (08/28/2017 11:46 AM CDT) Anatomical Region Laterality Modality Forearm Radiographic Tawanna ging 08/28/2017 12:0 8 PM CDT Impressions 08/28/2017 12:10 PM CDT =====IMPRESSION:===== 1. No right forearm fracture or other acute radiographic abnormality. Narrative 08/28/2017 12:10 PM CDT Examination: 2 views right forearm Exam date/time: 08/28/2017 11:10 AM Reason For Exam: Trauma. Fall from wheelchair. Right forearm Comparison: None Technique: AP and lateral radiographs of the right forearm Findings: No acute or displaced fracture identified. Alignment is anatomic. There is wrist moderate periarticular osteopenia. No erosive or destructive changes seen. No soft tissue abnormality identified. Procedure Note Haris Jiang MD - 08/28/2017 Examination: 2 views right forearm Exam date/time: 08/28/2017 11:10 AM Reason For Exam: Trauma. Fall from wheelchair. Right forearm Comparison: None Technique: AP and lateral radiographs of the right forearm Findings: No acute or displaced fracture identified. Alignment is anatomic. Thereis wrist moderate periarticular osteopenia. No erosive or destructivechanges seen. No soft tissue abnormality identified. =====IMPRESSION:===== 1. No right forearm fracture or other acute radiographic abnormality. Mary Kay Richmond PA-C GENERAL IMAGING Final Result * XR ELBOW RT M3V (08/28/2017 11:46 AM CDT) Anatomical Region Laterality Modality Elbow Radiographic Tawanna ging 08/28/2017 12:1 0 PM CDT Impressions 08/28/2017 12:20 PM CDT =====IMPRESSION:===== 1. ??No acute fracture dislocation. 2. ??Limited assessment for effusion suboptimal lateral view. 3. ??Mottled dizziness density of the distal humerus; the (please see dedicated humerus radiographs). Appearance is unusual along with the prominent periarticular osteopenia at the wrist and possibly at the elbow as well. Given history of stroke disuse osteopenia, altered mineralization is in the differential among other etiologies. Consider nonemergent follow-up skeletal survey to assess for distribution of findings. Narrative 08/28/2017 12:20 PM CDT Examination: 3 views right elbow Exam date/time: 08/28/2017 11:10 AM Reason For Exam: Trauma. Fall from wheelchair, right elbow pain and abrasion ? Comparison: None Technique: AP, oblique, and lateral radiographs of the right elbow Findings: No acute fracture dislocation seen. Assessment for effusions is limited given suboptimal lateral positioning. There is a moderate arthritis about the elbow. There is slightly heterogeneous appearance of the osseous matrix of the distal numerous. There appears to be cortical thickening and focal lucencies. Soft tissues are grossly unremarkable. Procedure Note Haris Jiang MD - 08/28/2017 Examination: 3 views right elbow Exam date/time: 08/28/2017 11:10 AM Reason For Exam: Trauma. Fall from wheelchair, right elbow pain and abrasion Comparison: None Technique: AP, oblique, and lateral radiographs of the right elbow Findings: No acute fracture dislocation seen. Assessment for effusionsis limited given suboptimal lateral positioning. There is a moderate arthritis about the elbow. There is slightly heterogeneous appearance of the osseous matrix of the distal numerous. There appears to be cortical thickening and focal lucencies. Soft tissues are grossly unremarkable. =====IMPRESSION:===== 1. No acute fracture dislocation. 2. Limited assessment for effusion suboptimal lateral view. 3. Mottled dizziness density of the distal humerus; the (please see dedicated humerus radiographs). Appearance is unusual along with the prominent periarticular osteopenia at the wrist and possibly at theelbow as well. Given history of stroke disuse osteopenia, alteredmineralization is in the differential among other etiologies. Consider nonemergent follow-up skeletal survey to assess for distribution of findings. Mary Kay Richmond PA-C GENERAL IMAGING Final Result * XR HUMERUS RT MIN 2V (08/28/2017 11:46 AM CDT) Anatomical Region Laterality Modality Humerus Radiographic Tawanna ging 08/28/2017 12:2 1 PM CDT Impressions 08/28/2017 12:25 PM CDT =====IMPRESSION:===== 1. Right proximal humeral probable surgical neck cortex width displaced fracture. See above. 2. No dislocation. 3. Abnormal heterogeneous/mottled density of the humerus areas of cortical sclerosis, lucency and tunneling; appearance is nonspecific. In combination with the prominent wrist and probable elbow periarticular osteopenia in this patient with history of stroke, disuse osteopenia/altered mineralization could have this appearance. Correlate with history. Other etiologies not excluded. Consider skeletal survey to assess for distribution of abnormalities. Narrative 08/28/2017 12:25 PM CDT Examination: 2 views right humerus Exam date/time: 08/28/2017 11:10 AM Reason For Exam: Trauma. Fall from wheelchair. Extreme pain ? Comparison: None Technique: AP and lateral radiographs of the right humerus Findings: There is a cortex width displaced fracture of the greater tuberosity proximal humerus. Fracture probably involves the surgical neck with the subtle linear lucency seen along the more medial aspect of the humeral head. Assessment is limited given positioning and background osteopenia. Humeral head remains aligned with the glenoid. Overall heterogeneous mottled density of the humerus with cortical thickening and tunneling. No focal erosive or destructive changes seen. Adjacent partially seen right ribs appear normal density. Procedure Note Haris Jiang MD - 08/28/2017 Examination: 2 views right humerus Exam date/time: 08/28/2017 11:10 AM Reason For Exam: Trauma. Fall from wheelchair. Extreme pain Comparison: None Technique: AP and lateral radiographs of the right humerus Findings: There is a cortex width displaced fracture of the greater tuberosity proximal humerus. Fracture probably involves the surgicalneck with the subtle linear lucency seen along the more medial aspect of the humeral head. Assessment is limited given positioning and background osteopenia. Humeral head remains aligned with the glenoid. Overall heterogeneous mottled density of the humerus with cortical thickening and tunneling. No focal erosive or destructive changes seen. Adjacent partially seen right ribs appear normal density. =====IMPRESSION:===== 1. Right proximal humeral probable surgical neck cortex width displaced fracture. See above. 2. No dislocation. 3. Abnormal heterogeneous/mottled density of the humerus areas ofcortical sclerosis, lucency and tunneling; appearance is nonspecific. Incombination with the prominent wrist and probable elbow periarticular osteopenia in this patient with history of stroke, disuse osteopenia/altered mineralization could have this appearance. Correlate with history. Other etiologies not excluded. Consider skeletal survey to assess for distribution of abnormalities. Mary Kay Richmond PA-C GENERAL IMAGING Final Result documented in this encounter Visit Diagnoses Diagnosis Right humeral fracture- Primary Closed fracture of unspecified part of humerus Abrasion of elbow, right Elbow, forearm, and wrist, abrasion or friction burn, without mention of infection documented in this encounter Administered Medications Inactive Administered Medications - up to 3 most recent administrations Medication Order MAR Action Action Date Dose Rate Site hydrocodone-acetaminophen (NORCO) 5-325 MG tablet 1 tablet 1 tablet, Oral, Once, 1 dose, On Dionne 08/28/17 at 1245, Maximum dose of acetaminophen is 4000 mg from all sources in 24 hours. Given 08/28/2017 12:48 PM CDT 1 tablet documented in this encounter Active and Recently Administered Medications Times are shown in CDT. Scheduled Medication Order 08/26/2017 08/27/2017 08/28/2017 hydrocodone-acetaminophen (NORCO) 5-325 MG tablet 1 tablet (COMPLETED) 1 tablet, Oral, Once, 1 dose, On Dionne 08/28/17 at 1245, Maximum dose of acetaminophen is 4000 mg from all sources in 24 hours. 1248 (Given - Provid er: Allison Daly LPN) documented in this encounter Care Teams Welder Plasma Arc Relationship Specialty Start Date End Date Shawn Berkowitz MD [address] [place] [address] PCP - General INTERNAL MEDICINE 08/28/17 02/06/20 documented as of this encounter
--- OUTSIDE RECORDS SUMMARY | 2024-04-03 17:32 | XMS_ITS | Encounter Summary ---
Author Organization [facility] Address [address] [place] [address]. [place] [address] [place] [address] Care Team Providers Care Secretary Of State Name Role Phone Garrett Pineda MD Primary Care Provider [phone] Encounter Details Date Type Department Care Team (Latest Contact Info) Description 07/20/2020 12:45 PM CDT - 07/20/2020 11:59 PM CDT Hospital Encounter [facility] [place] [address] Oneal Mcguire MD Discharge Disposition: Home or Self Care (Routine [...] PM CDT documented as of this encounter Medications at Time of Discharge metoprolol tartrate 25 MG tablet Take 25 mg by mouth 2 (two) times daily. tamsulosin 0.4 MG Cap Take 0.4 mg by mouth 2 (two) times a day. atorvastatin 40 MG tablet Take 40 mg by mouth daily. 09/26/2023 documented as of this encounter Plan of Treatment Not on file documented as of this encounter Visit Diagnoses Diagnosis Need for prophylactic vaccination against viral disease- Primary Need for prophylactic vaccination and inoculation against other viral diseases documented in this encounter Care Teams Secretary Of State Relationship Specialty Start Date End Date Garrett Pineda MD PCP - General FAMILY PRACTICE 02/07/20 10/16/23 documented as of this encounter
--- OUTSIDE RECORDS SUMMARY | 2024-04-03 17:32 | XMS_ITS | Encounter Summary ---
Author Organization [facility] Address [address] [place] [address]. [place] [address] [place] [address] Care Team Providers Care Mechanical Commissioning Engineer Name Role Phone Shawn Berkowitz MD Primary Care Provider [phone] Encounter Details Date Type Department Care Team (Late st Contact Info) Description 09/04/2017 Abstract [facility] Multispecialty Care - [facility] [address] [facility] [place] [id number] Gasper Ross MD [address] [facility] [address] [place], [place] [id number] Social History Tobacco Use Types Packs/Day Years [...] Sign Reading Time Taken Comments Blood Pressure 119/62 09/04/2017 12:10 PM CDT Pulse 81 09/04/2017 12:10 PM CDT Temperature - - Respiratory Rate - - Oxygen Saturation - - Inhaled Oxygen Concentration - - Weight - - Height - - Body Mass Index - - documented in this encounter Progress Notes * Gasper Ross MD - 09/04/2017 11:00 AM CDT Reason For Visit Other: Right humerus fracture History of Present Illness HPI A 61-year-old right-hand dominant white male seeing me for a right shoulder fracture. 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 He essentially has no use of his right arm. He is able to ambulate on his right leg though with assistance. He was at the [facility] over at [facility] on August 27 and fell when he slipped out of his wheelchair while his was pushing him to the car. He apparently had some abrasions that were covered there at that time and then he was sent home and told to ice. He was not seen by a physicianuntil the next day when he came to the ER here at [facility]. He had x-rays done demonstrating a right shoulder fracture and he was placed in a shoulder immobilizer and then referred to me. He routinely takes hydrocodone 7.5 mg provided by the [facility] for pain. While he was right-hand dominant before his stroke, he again has little or no function at all with the right arm. REVIEW OF SYSTEMS No recent fever, chills, or sweats. No rashes or lesions. He does have some abrasions on the forearm of t1his right arm. He has no easy bruising or bleeding. PHYSICAL EXAM His physical examination today shows swelling and tenderness at the right shoulder. He has some generalized swelling throughout the entire right arm down into the hand and wrist. There are some very superficial abrasions on the dorsal proximal forearm. I removed the Telfa gauze pad that was there and I see no reason to continue applying a dressing even it is a superficial. X-RAY A three-view x-ray of the right shoulder was reviewed today. Also I was able to review x-rays from his ER visit on August 28 here at [facility]. His three-view x-ray of the right shoulder today demonstrates a slightly varus angulated surgical neck proximal humerus fracture on this right side. There may also be a split fracture of the humeral head. There is a significant osteopenia present. Thereis also a mottled appearance to the entire humerus as well as the forearm may be consistent with a metabolic bone disease. This also could be simply from disuse osteopenia. The x-ray from August 28 donein the ER do not show any fracture at the elbow. DISCUSSION SUMMARY Diagnosis here is at least a two-part proximal humerus fracture with a possibility of a humeral head split fracture as well. Because he has no function with this right arm I am not going to recommendany surgical intervention even if there was a split fracture to the humeral head. I would do nothing until after the fracture consolidated and then only if he had very severe pain would he ended up having a joint replacement surgery. I would like it would be a hemiarthroplasty in this case and not a reverse since he would probably be at a high likelihood of dislocation with the reverse. Before even considering a surgery, I would certainly want to try conservative measures such as a cortisone injection if we go to that point where he had severe arthrosis in his joint. Right now though, I thinkthe best thing to do is allow it to heal in its present position and we will keep him in the immobilizer and then follow him up in 3 weeks with another two-view x-ray of the right shoulder. Active Problems 1. Acid reflux (530.81) (K21.9) 2. Anxiety (300.00) (F41.9) 3. CAD (coronary artery disease) (414.00) (I25.10) 4. Full dentures (V45.84) (Z97.2,K08.109) 5. Osteoporosis (733.00) (M81.0) 6. Seizures (780.39) (R56.9) 7. Shoulder pain (719.41) (M25.519) 8. Wears glasses (V49.89) (Z97.3) Past Medical History 1. History of stroke (V12.54) (Z86.73) 2. History of transient cerebral ischemia (V12.54) (Z86.73) 3. History of Right hand dominant Surgical History 1. no history of surgery Family History Mother 1. No pertinent family history Father 2. No pertinent family history Social History ?? Current smoker (305.1) (F17.200) ?? Current Meds 1. AmLODIPine Besylate 10 MG Oral Tablet; Therapy: (Recorded:04Sep2017) to Recorded 2. Aspirin Low Dose 81 MG TABS; Therapy: (Recorded:04Sep2017) to Recorded 3. Cymbalta 30 MG Oral Capsule Delayed Release Particles; Therapy: (Recorded:04Sep2017) to Recorded 4. Hydrocodone-Acetaminophen 7.5-325 MG Oral Tablet; Therapy: (Recorded:04Sep2017) to Recorded 5. Medrol 2 MG Oral Tablet; Therapy: (Recorded:04Sep2017) to Recorded 6. Neurontin TABS; Therapy: (Recorded:04Sep2017) to Recorded 7. Nortriptyline HCl CAPS; Therapy: (Recorded:04Sep2017) to Recorded 8. Tamsulosin HCl - 0.4 MG Oral Capsule; Therapy: (Recorded:04Sep2017) to Recorded Allergies 1. codeine Vitals Recorded: 04Sep2017 12:10PM Heart Rate 81 Systolic 119 Diastolic 62 Not able to obtain height Patient in wheelchair Unable to obtain weight Patient in wheelchair Results/Data XY Shoulder 2+ View Rt NC 04Sep2017 11:40AM Gasper Ross Test Name Result Flag Reference Pacs Image Result Radiology image is available. Click on Image Link above. Assessment 1. Fracture, humerus (812.20) (S42.309A) Plan Shoulder pain 1. XY Shoulder 2+ View Rt NC; Status:Resulted - Requires Verification; Done: 04Sep2017 11:40AM Signatures Electronically signed by : Gasper Ross M.D.; Sep 05 2017 10:16AM WHEEL LACER AND TRUER (Author) documented in this encounter Plan of Treatment Not on file documented as of this encounter Procedures Procedure Name Priority Date/Time Associated Diagnosis Comments XR SHOULDER RT MIN 2V Routine 09/04/2017 11:40 AM CDT documented in this encounter Results * XR SHOULDER RT MIN 2V (09/04/2017 11:40 AM CDT) Anatomical Region Laterality Modality Shoulder Radiographic Tawanna ging 09/04/2017 11:4 0 AM CDT 09/04/2017 11:40 AM CDT Narrative 09/05/2017 7:43 AM CDT Radiology image is available. Click on Image Link above. Procedure Note Gasper Ross MD - 01/22/2018 Radiology image is available. Click on Image Link above. us Gasper Ross MD GENERAL IMAGING Final Result documented in this encounter Visit Diagnoses Not on filedocumented in this encounter Care Teams Mechanical Commissioning Engineer Relationship Specialty Start Date End Date Shawn Berkowitz MD [address] [place] [address] [place] [address] PCP - General INTERNAL MEDICINE 08/28/17 02/06/20 documented as of this encounter
--- OUTSIDE RECORDS SUMMARY | 2024-04-03 17:32 | XMS_ITS | Encounter Summary ---
Author Organization [facility] Address [address] [place] [address]. [place] [address] [place] [address] Care Team Providers Care Industrial Engineering Technologist Name Role Phone Garrett Pineda MD Primary Care Provider [phone] Encounter Details Date Type Department Care Team (Latest Contact Info) Description 06/28/2020 12:00 PM CDT - 06/28/2020 11:59 PM CDT Hospital Encounter [facility] [place] [address] Oneal Mcguire MD Discharge Disposition: Home or [...] have Coronavirus / COVID-19? No / Unsure 06/28/2020 12:09 PM CDT documented as of this encounter [...] diseases documented in this encounter Care Teams Industrial Engineering Technologist Relationship Specialty Start Date End Date Garrett Pineda MD PCP - General FAMILY PRACTICE 02/07/20 10/16/23 documented as of this encounter
--- OUTSIDE RECORDS SUMMARY | 2024-04-03 17:32 | XMS_ITS | Encounter Summary ---
Author Organization [facility] Address [address] [place] [address]. [place], [place] [address] [place] [address] Care Team Providers Care Electrical Maintenance Worker Name Role Phone Unavailable Primary Care Provider Unavailabl e Encounter Details Date Type Department Care Team (Late st Contact Info) Description 03/16/2001 Abstract [facility] Diagnostic Imaging [address] [place], [place] [id number] , Quan Sumnre MD Social History Tobacco Use Types Packs/Day [...]
--- OUTSIDE RECORDS SUMMARY | 2024-04-03 17:32 | XMS_ITS | Encounter Summary ---
Author Organization [facility] Address [address] [place] [address]. [place], [place] [address] [place] [address] Care Team Providers Care Caul Fat Puller Name Role Phone Unavailable Primary Care Provider Unavailabl e Encounter Details Date Type Department Care Team (Late st Contact Info) Description 02/04/2000 Abstract [facility] Diagnostic Imaging [address] [place], [place] [id number] , Quan Sumner MD Social History Tobacco [...]
--- OUTSIDE RECORDS SUMMARY | 2024-04-03 17:32 | XMS_ITS | Encounter Summary ---
Author Organization [facility] Address [address] [place] [address]. [place] [address] [place] [address] Care Team Providers Care Atomizer Assembler Name Role Phone Shawn Berkowitz MD Primary Care Provider [phone] Encounter Details Date Type Department Care Team (Late st Contact Info) Description 2017 [facility] Mult[facility] - [facility] [address] [facility] [place] [id number] Gasper Ross MD [address] [facility] [address] [place], [place] [address] Social History Tobacco Use Types Packs/Day Years [...] Sign Reading Time Taken Comments Blood Pressure 122/62 2017 9:21 AM CDT Pulse 78 2017 9:21 AM CDT Temperature - - Respiratory Rate - - Oxygen Saturation - - Inhaled Oxygen Concentration - - Weight - - Height - - Body Mass Index - - documented in this encounter Progress Notes * Gasper Ross MD - 2017 9:00 AM CDT Reason For Visit Other: Right humerus fracture History of Present Illness HPI Four weeks out now from his two-part proximal humerus fracture with a likelihood of a humeral splitfracture with that. We have had him in an immobilizer. He is still having some complaints of pain. He wants more pain medicine; however, he already gets a fair amount of [place] from his touch up painter hand and he will have to pursue it from there since he is getting that for his back as well. PHYSICAL EXAM He has minimal swelling now on exam. The right shoulder does appear to be inferior subluxed still. There is no warmth or erythema. He has some slight tenderness. X-RAY Two-view x-ray shows the fracture healing and I do indeed think there is a humeral head split fracture. DISCUSSION SUMMARY Because of his CVA and no function involved in this right upper extremity, I do not think we will likely need to address this surgically. In most, I think he may need a cortisone injection. I think, it would be reasonable for him to wear the sling for 2 more weeks for comfort, then he can discontinue it. I will see him as needed. Active Problems 1. Acid reflux (530.81) [...] to Recorded Allergies 1. codeine Vitals Recorded: 25Sep2017 09:21AM Heart Rate 78 Systolic 122 Diastolic 62 Unable to obtain weight Patient in wheelchair Results/Data XY Shoulder 2+ View Rt NC 25Sep2017 09:10AM Gasper Ross Test Name Result Flag Reference Pacs Image Result Radiology image is available. Click on Image Link above. Assessment 1. Fracture, humerus (812.20) (S42.309A) Plan Fracture, humerus 1. XY Shoulder 2+ View Rt NC; Status:Resulted - Requires Verification; Done: 25Sep2017 09:10AM Signatures Electronically signed by : Gasper Ross M.D.; Sep 27 2017 9:04AM APPLICATION PERFORMANCE ENGINEER (Author) documented in this encounter Plan of Treatment Not on file documented as of this encounter Procedures Procedure Name Priority Date/Time Associated Diagnosis Comments XR SHOULDER RT MIN 2V Routine 2017 9:10 AM CDT documented in this encounter Results * XR SHOULDER RT MIN 2V (2017 9:10 AM CDT) Anatomical Region Laterality Modality Shoulder Radiographic Tawanna ging 2017 9:10 AM CDT 2017 9:10 AM CDT Narrative 09/26/2017 7:55 AM CDT Radiology image is available. Click on Image Link above. Procedure Note Gasper Ross MD - 01/23/2018 Radiology image is available. Click on Image Link above. us Gasper Ross MD GENERAL IMAGING Final Result documented in this encounter Visit Diagnoses Not on filedocumented in this encounter Care Teams Atomizer Assembler Relationship Specialty Start Date End Date Shawn Berkowitz MD [address] [facility] [address] [address] PCP - General INTERNAL MEDICINE 08/28/17 02/06/20 documented as of this encounter
--- OUTSIDE RECORDS SUMMARY | 2024-04-03 17:32 | XMS_ITS | Encounter Summary ---
Author Organization [facility] Address [address] [place] [address]. [place], [place] [address] [place] [address] Care Team Providers Care Preliminary School Psychologist Name Role Phone Unavailable Primary Care Provider Unavailabl e Encounter Details Date Type Department Care Team (Late st Contact Info) Description 06/16/1996 Abstract [facility] [place], [place] [id number] , Generic Conversion, Social History Tobacco Use [...]
--- OUTSIDE RECORDS SUMMARY | 2024-04-03 17:32 | XMS_ITS | Encounter Summary ---
Author Organization [facility] Address [address] [place] [address]. [place] [address] [place] [address] Care Team Providers Care Auto Damage Estimator Name Role Phone Shawn Berkowitz MD Primary Care Provider [phone] Encounter Details Date Type Department Care Team (Latest Contact Info) Description 07/31/2018 Scan HEALTH INFO [facility] Scanned, Documents Social History Tobacco Use Types Packs/Day Years [...] on filedocumented in this encounter Care Teams Auto Damage Estimator Relationship Specialty Start Date End Date Shawn Berkowitz MD [address] [facility] [facility] [place] [address] PCP - General INTERNAL MEDICINE 08/28/17 02/06/20 documented as of this encounter
--- OUTSIDE RECORDS SUMMARY | 2024-04-03 17:32 | XMS_ITS | Encounter Summary ---
Author Organization [facility] Address [address] [place] [address]. [place] [address] [place] [address] Care Team Providers Care Director Counseling Bureau Name Role Phone Garrett Pineda MD Primary Care Provider [phone] Encounter Details Date Type Department Care Team (Latest Contact Info) Description 06/28/2020 Travel Social History Tobacco Use Types Packs/Day [...] on filedocumented in this encounter Care Teams Director Counseling Bureau Relationship Specialty Start Date End Date Garrett Pineda MD PCP - General FAMILY PRACTICE 02/07/20 10/16/23 documented as of this encounter
--- OUTSIDE RECORDS SUMMARY | 2024-04-03 17:33 | XMS_ITS | Encounter Summary ---
Author Organization [facility] Care Team Providers Care Neuroscience Specialist Name Role Phone Shawn Berkowitz MD Primary Care Provider [phone] Encounter Details Date Type Department Care Team (Latest Contact Info) Description 06/29/2019 Travel Social History Tobacco Use Types Packs/Day Years Used Date Smoking Tobacco: Every Day Smokeless Tobacco: Never Comments:about 4 a day Alcohol Use Standard Drinks/Week Comments Never 0 (1 standard drink = 0.6 oz pur e alcohol) AUDIT-C Answer Date Recorded Frequency of Alcohol Consumption Never 08/25/2018 Average Number of Drinks Not on file 019 Frequency of Binge Drinking Not on file 07/30 PHQ-2 Answer Date Recorded PHQ-2 Score 0 06/23/2019 Sex and Gender Information Value Date Recorded Sex Assigned at Not on file Legal Sex Male 6:59 AM INFORMATION WRITER Gender Identity Not on file Sexual Orientation Not on file COVID-19 Exposure Response Date Recorded In the last month, have you been in contact with someone who was confirmed or suspected to have Coronavirus / COVID-19? 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 difficile Comment:Germ watcher auto flagging 01/15/2014 01/15/2014 documented as of this encounter Care Teams Neuroscience Specialist Relationship Specialty Start Date End Date Shawn Berkowitz MD [address] [facility] [facility] [place] [address] PCP - General Internal Medicine 08/11/18 documented as of this encounter
--- OUTSIDE RECORDS SUMMARY | 2024-04-03 17:33 | XMS_ITS | Encounter Summary ---
Author Organization [facility] Healthcare Address [address] [place] [address] Care Team Providers Care Power Plant Superintendent Name Role Phone Shawn Berkowitz MD Primary Care Provider [phone] Encounter Details Date Type Department Care Team (Late st Contact Info) Description 03/03/2019 10:25 AM SPECIALTY FINISHING UTILITY PERSON - 03/30/2019 11:59 PM SPECIALTY FINISHING UTILITY PERSON Hospital Encounter [facility] INTERIM Shawn Berkowitz MD [address] [facility] [address] [address] Social History Tobacco Use Types Packs/Day Years [...] 07/30 PHQ-2 Answer Date Recorded PHQ-2 Score 6 11/25/2018 Sex and Gender Information Value Date Recorded Sex Assigned at Not on file Legal Sex Male 6:59 AM SPECIALTY FINISHING UTILITY PERSON Gender Identity Not on file Sexual Orientation Not on file documented as of this encounter Medications at Time of Discharge aspirin 325 mg tablet Take 325 mg by mouth daily amLODIPine (NORVASC) 10 mg tablet TAKE 1 TABLET BY MOUTH EVERY DAY 30 tablet 1 03/02/2019 05/17/2019 atorvastatin (LIPITOR) 40 mg tablet TAKE 1 TABLET BY MOUTH EVERY DAY 30 tablet 3 12/28/2018 05/28/2019 famotidine (PEPCID) 40 mg tablet Take 1 tablet (40 mg total) by mouth daily 30 tablet 3 03/03/2019 08/09/2019 FLUoxetine (PROzac) 40 mg capsule Take 1 capsule (40 mg total) by mouth daily 30 capsule 5 11/25/2018 05/31/2019 gabapentin (NEURONTIN) 800 mg tablet TAKE 1 TABLET BY MOUTH 4 TIMES A DAY 120 tablet 1 03/02/2019 05/31/2019 levETIRAcetam (KEPPRA) 500 mg tablet TAKE 1 TABLET BY MOUTH EVERY 12 HOURS 60 tablet 1 03/02/2019 04/19/2019 metoprolol (LOPRESSOR) 25 mg tablet TAKE 1 TABLET BY MOUTH TWICE A DAY 60 tablet 3 01/25/2019 05/31/2019 tamsulosin (FLOMAX) 0.4 mg extended release capsule TAKE 1 CAPSULE BY MOUTH EVERY DAY 30 capsule 1 03/02/2019 05/31/2019 documented as of this encounter Plan of Treatment Not on file documented as of this encounter Visit Diagnoses Not on filedocumented in this encounter Additional Health Concerns 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 difficile Comment:Germ watcher auto flagging 01/15/2014 01/15/2014 documented as of this encounter Care Teams Power Plant Superintendent Relationship Specialty Start Date End Date Shawn Berkowitz MD [address] [facility] [address] [place] [id number] PCP - General Internal Medicine 08/11/18 documented as of this encounter
--- OUTSIDE RECORDS SUMMARY | 2024-04-03 17:33 | XMS_ITS | Encounter Summary ---
Author Organization [facility] Address [address] [facility] [address] [place] [address] Care Team Providers Care Medical Billing Assistant Name Role Phone Shawn Berkowitz MD Primary Care Provider [phone] Encounter Details Date Type Department Care Team (Late st Contact Info) Description 12/21/[address] 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 Gender Identity Not on file Sexual Orientation Not on file documented as of this encounter Ordered Prescriptions Prescription Sig Dispense Quantity Refills Last Filled Start Date End Date montelukast (SINGULAIR) 10 mg tablet Take 1 tablet (10 mg total) by mouth daily 30 tablet 3 12/21/2019 01/18/2020 documented in this encounter Miscellaneous Notes * Telephone Encounter - Kaycee Dorsey MA - 12/21/2019 12:09 PM CDT Rx sent to pharmacy * Telephone Encounter - Shawn Berkowitz MD - 12/21/2019 12:02 PM CDT Singular 10 mg daily number 30 with 3 refills * Telephone Encounter - Kaycee Dorsey MA - 12/21/2019 10:31 AM CDT Janeen, patient spouse, ask if you could send a Rx for montelukast to pharmacy. Janeen think this will really help pt with his sinuses. 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 difficile Comment:Germ watcher auto flagging 01/15/2014 01/15/2014 documented as of this encounter Care Teams Medical Billing Assistant Relationship Specialty Start Date End Date Shawn Berkowitz MD [address] [facility] [place] [address] PCP - General Internal Medicine 08/11/18 documented as of this encounter
--- OUTSIDE RECORDS SUMMARY | 2024-04-03 17:33 | XMS_ITS | Clinical Summary ---
Author Organization [facility] Address [address] [place] [address] Care Team Providers Care Media Center Assistant Name Role Phone Shawn Berkowitz MD Primary Care Provider [phone] Allergies Active Allergy Reactions Criticality Noted Date Comments Codeine Itching Reaction: Itching, Medications aspirin 325 mg tablet Take 325 mg by mouth daily Active traMADoL (ULTRAM) 50 mg tablet Take 50 mg by mouth 4 (four) times a day Active famotidine (PEPCID) 40 mg tablet TAKE 1 TABLET BY MOUTH EVERY DAY 30 tablet 3 0 Active montelukast (SINGULAIR) 10 mg tablet TAKE 1 TABLET BY MOUTH EVERY DAY 90 tablet 1 0 Active fluticasone propionate (FLONASE) 50 mcg/actuation nasal spray PLACE 1 SPRAY INTO EACH NOSTRIL EVERY DAY 16 mL 3 0 Active diclofenac sodium (VOLTAREN) 1 % gel Apply 2 g topically 3 (three) times a day Active buPROPion XL (WELLBUTRIN XL) 300 mg 24 hr tablet Take 1 tablet (300 mg total) by mouth every morning 30 tablet 3 0 Active tamsulosin (FLOMAX) 0.4 mg extended release capsule Take 2 cap at night 180 capsule 2 0 Active budesonide-form oteroL (SYMBICORT) 80-4.5 mcg/actuation inhaler Inhale 2 puffs 2 (two) times a day Rinse mouth with water after use. Do not swallow. 1 Inhaler 3 0 Active levETIRAcetam (KEPPRA) 500 mg tablet TAKE 1 TABLET BY MOUTH EVERY 12 HOURS 180 tablet 1 0 Active amLODIPine (NORVASC) 10 mg tablet TAKE 1 TABLET BY MOUTH EVERY DAY 90 tablet 1 0 Active atorvastatin (LIPITOR) 40 mg tablet TAKE 1 TABLET BY MOUTH EVERY DAY 90 tablet 1 Active gabapentin (NEURONTIN) 800 mg tablet TAKE 1 TABLET BY MOUTH 4 TIMES A DAY 120 tablet 1 Active Active Problems Problem Noted Date Diagnosed Date Simple chronic bronchitis 01/24/2020 Assessment & Plan (01/24/2020 12:04 PM CDT): Patient has COPD. We discussed the importance of smoking cessation. Will start him on Symbicort 80 mcg 2 puffs b.i.d. and instructed to rinse his mouth after each use. Recurrent major depressive d isorder, in full remission (CMS/HCC) 01/23/2020 Assessment & Plan (01/24/2020 12:04 PM CDT): Patient has persistent depression. We will stop Prozac slowly and start him on Wellbutrin XL 300 mg daily. The was instructed to call for persistent symptoms. BMI 22.0-22.9, adult 10/20/2019 Assessment & Plan (10/20/2019 4:56 PM CDT): The patient lost weight. According to him and his he has good appetite. I told him that he needs to increase his calorie intake and try not to lose more weight. Will continue to monitor Smoking 10/20/2019 Assessment & Plan (01/24/2020 12:03 PM CDT): Discussed smoking cessation and different methods to help with that. Discussed the risks of smoking including COPD, CAD and lung cancer etc. Total time spent was 3 minutes. Assessment & Plan (10/20/2019 4:56 PM CDT): The patient smokes 5-10 cigarettes daily. Discussed smoking cessation and different methods to help with that. Discussed the risks of smoking including COPD, CAD and lung cancer etc. Total time spent was 3 minutes. Pain of right upper extremity 06/23/2019 Assessment & Plan (07/13/2019 1:53 PM CDT): Resolved Assessment & Plan (06/23/2019 11:21 AM CDT): The patient has pain in the right upper arm after a fall couple of weeks ago. He takes tramadol with good relief. There is no swelling or discoloration and he is able to move his arm in all directions. They will call if there is any change in the condition. Dyslipidemia 06/02/2019 Assessment & Plan (01/24/2020 12:05 PM CDT): Controlled on current medications. Continue low-fat diet. Will continue to monitor . Assessment & Plan (10/20/2019 1:10 PM CDT): Controlled on current medications. Continue low-fat diet. Will continue to monitor . Assessment & Plan (07/13/2019 1:53 PM CDT): Controlled on current medications. Continue low-fat diet. Will continue to monitor . Assessment & Plan (06/23/2019 11:21 AM CDT): Controlled on current medications. Continue low-fat diet. Will continue to monitor . Gastroesophageal reflux disease without esophagi tis 03/03/2019 Assessment & Plan (10/20/2019 1:10 PM CDT): Asymptomatic Assessment & Plan (03/03/2019 12:11 PM CUT OFF SAWYER): Will stop Zantac and start him on Pepcid 40 mg daily Benign prostatic hyperplasia without lower urinary tract symptoms 08/25/2018 Assessment & Plan (01/24/2020 12:06 PM CDT): Patient has persistent symptoms and we will increase Flomax to 0.8 mg q.h.s. and the will call for persistent symptoms Assessment & Plan (10/20/2019 1:10 PM CDT): Controlled on Flomax Assessment & Plan (07/13/2019 1:53 PM CDT): Patient is asymptomatic and he is maintained on Flomax Assessment & Plan (03/03/2019 12:11 PM CUT OFF SAWYER): Asymptomatic Assessment & Plan (11/25/2018 12:04 PM CDT): Controlled on Flomax Assessment & Plan (08/25/2018 3:53 PM CDT): Controlled on Flomax Onychomycosis 08/25/2018 Assessment & Plan (08/25/2018 3:54 PM CDT): Will make him a referral to see a bottle washing machine operator for further evaluation History of CVA with residual deficit 01/29/2016 Assessment & Plan (06/23/2019 11:21 AM CDT): The patient had history of CVA with right-sided weakness. He uses a walker for ambulation. We discussed fall precautions. Assessment & Plan (11/25/2018 12:04 PM CDT): Persistent weakness in the right side Seizure 01/29/2016 Assessment & Plan (01/24/2020 12:04 PM CDT): Controlled on Keppra Assessment & Plan (10/20/2019 1:10 PM CDT): Patient is maintained on Keppra and he is stable with no seizure Assessment & Plan (07/13/2019 1:53 PM CDT): Controlled on Keppra and will obtain Keppra level Assessment & Plan (03/03/2019 12:10 PM CUT OFF SAWYER): Controlled on Keppra and will obtained Keppra level Assessment & Plan (11/25/2018 12:04 PM CDT): Controlled on Keppra and no recent seizure activities Assessment & Plan (08/25/2018 1:36 PM CDT): Controlled on Keppra Cerebral infarction, unspecified 11/17/2015 Essential (primary) hypertension 08/18/2015 Assessment & Plan (01/24/2020 12:05 PM CDT): Continue current medications. Discussed low-salt diet. Discussed exercise on regular basis. Will continue to monitor Assessment & Plan (10/20/2019 4:55 PM CDT): Will stop metoprolol because of low blood pressure. He will continue amlodipine. Will continue to monitor Assessment & Plan (03/03/2019 12:10 PM CUT OFF SAWYER): Continue current medications. Discussed low-salt diet. Discussed exercise on regular basis. Will continue to monitor Assessment & Plan (11/25/2018 12:04 PM CDT): Continue current medications. Discussed low-salt diet. Discussed exercise on regular basis. Will continue to monitor Assessment & Plan (08/25/2018 1:35 PM CDT): Continue current medications. Discussed low-salt diet. Discussed exercise on regular basis. Will continue to monitor Dorsalgia 07/10/2015 Assessment & Plan (01/24/2020 12:05 PM CDT): Managed by the [place] physician Assessment & Plan (07/13/2019 1:53 PM CDT): Managed by the [place] Assessment & Plan (03/03/2019 12:10 PM CUT OFF SAWYER): The patient with history of chronic back pain and he was advised to follow up for that at the [place] [facility] Assessment & Plan (11/25/2018 12:04 PM CDT): The patient has a chronic back pain and he was advised to follow up with the Pain Management at the [place] Occlusion of left carotid artery 03/13/2015 Assessment & Plan (11/25/2018 12:03 PM CDT): The patient is maintained on aspirin daily Cerebrovascular accident (CV A) involving left cerebral hemisphere 02/02/2015 Hemiparesis as late effect o f cerebrovascular accident (CVA) ([facility]) 12/10/2013 Assessment & Plan (01/24/2020 12:05 PM CDT): No change and continue aspirin daily Assessment & Plan (10/20/2019 4:53 PM CDT): The patient has chronic hemiparesis secondary to old CVA. No change. Continue aspirin daily. The patient has paralysis on the right side and he needs a wheelchair to help him with ambulation . Assessment & Plan (07/13/2019 1:53 PM CDT): No change and continue aspirin daily Assessment & Plan (03/03/2019 12:09 PM CUT OFF SAWYER): Left-sided weakness secondary to all CVA with no change. He is maintained on aspirin daily. Assessment & Plan (11/25/2018 12:03 PM CDT): No change and continue aspirin daily Assessment & Plan (08/25/2018 1:35 PM CDT): No change in weakness and continue aspirin daily Immunizations Name Administration Dates Next Due Influenza, Quadrivalent, Hig h Dose, Preservative Free, Intrr 01/24/2020 Influenza, Quadrivalent, Spl it, Preservative Free, Intramuscular 03/03/2019 Influenza, Trivalent, High D ose, Split, Preservative Free, Intramuscular 12/16/2016 Influenza, Trivalent, Preservative Free, Intramu scular 12/29/2014,12/29/2012 Influenza, Unspecified 01/04/2014 Pneumococcal Polysaccharide PPV23 10/20/2019 Tdap 04/26/2004 Surgical History Surgery Date Site/Laterality Comments IR G TUBE PLACEMENT PERCUTANEOUS 11/02/2013 N/A SPINE SURGERY JOINT REPLACEMENT Medical History Medical History Date Comments Hyperlipidemia Hypertension Depression Stroke ([facility]) Family History Medical History Relation Name Comments Heart attack Father Heart disease Father Heart disease Mother Relation Name Status Comments Father Mother Social History Tobacco Use Types Packs/Day Years Used Date Smoking Tobacco: Every Day Cigarettes Smokeless Tobacco: Never Alcohol Use Standard Drinks/Week Comments Never 0 (1 standard drink = 0.6 oz pur e alcohol) AUDIT-C Answer Date Recorded Frequency of Alcohol Consumption Never 08/25/2018 Average Number of Drinks Not on file 019 Frequency of Binge Drinking Not on file 07/30 PHQ-2 Answer Date Recorded PHQ-2 Total Score (If total score is 3 or more points, staff should administer the PHQ-9) 1 01/24/2020 Sex and Gender Information Value Date Recorded Sex Assigned at Not on file Legal Sex Male 6:59 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 Gender Identity Not on file Sexual Orientation Not on file Obstetrics History Last Filed Vital Signs Vital Sign Reading Time Taken Comments Blood Pressure 106/82 05/29/2020 1:26 PM CUT OFF SAWYER Pulse 93 05/29/2020 1:26 PM CUT OFF SAWYER Temperature 36.6 ??C (97.8 ??F) 05/29/2020 1:26 PM CS T Respiratory Rate 16 01/24/2020 11:07 AM CDT Oxygen Saturation 95% 05/29/2020 1:26 PM CUT OFF SAWYER Inhaled Oxygen Concentration - - Weight 77 kg (169 lb 12.1 oz) 05/29/2020 1:26 PM CUT OFF SAWYER Height 177.8 cm (5' 10 ) 01/24/2020 11:07 AM CDT Body Mass Index 24.36 01/24/2020 11:07 AM CDT Plan of Treatment Not on file Additional Health Concerns Infection Onset Date Last Indicated C. difficile Comment:Germ watcher auto flagging 01/15/2014 01/15/2014 Insurance Care Teams Media Center Assistant Relationship Specialty Start Date End Date Shawn Berkowitz MD [address] [place] [address] PCP - General Internal Medicine 08/11/18
--- OUTSIDE RECORDS SUMMARY | 2024-04-03 17:33 | XMS_ITS | Encounter Summary ---
Author Organization [facility] Address [address] [place] [address] Care Team Providers Care Language Arts Teacher Name Role Phone Shawn Berkowitz MD Primary Care Provider [phone] Reason for Visit * Reason Comments Follow-up 3 mo follow up on GE RD,Dyslipidemai,Hx CVA - no labs Urinary Symptom frequent urination - few accidents Sinus Problem chest congestion at night x 1 week Encounter Details Date Type Department Care Team (Late st Contact Info) Description 01/24/2020 11:30 AM CDT Office Visit [facility] Internal Medicine [address] [place] [phone] Shawn Berkowitz MD [address] [place] [address] [address] [place] [address] Hemiparesis as late effect of cerebrovascular accident (CVA) (CMS/HCC) (Primary Dx); Essential (primary) hypertension; Benign prostatic hyperplasia without lower urinary tract symptoms; Dyslipidemia; Smoking; Seizure (CMS/HCC); Recurrent major depressive disorder, in full remission (CMS/HCC); Encounter for immunization; Seizure disorder (CMS/HCC); Simple chronic bronchitis (CMS/HCC) Social History Tobacco Use Types Packs/Day Years [...] on file 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 Gender Identity Not on file Sexual Orientation Not on file documented as of this encounter Last Filed Vital Signs Vital Sign Reading Time Taken Comments Blood Pressure 114/66 01/24/2020 11:07 AM CDT Pulse 68 01/24/2020 11:07 AM CDT Temperature 36.5 ??C (97.7 ??F) 01/24/2020 1 1:07 AM CDT Respiratory Rate 16 01/24/2020 11:0 7 AM CDT Oxygen Saturation 97% 01/24/2020 11: 07 AM CDT Inhaled Oxygen Concentration - - Weight 72.5 kg (159 lb 12.8 oz) 020 11:07 AM CDT Height 177.8 cm (5' 10 ) 01/24/2020 11: 07 AM CDT Body Mass Index 22.93 01/24/2020 11:07 AM CDT documented in this encounter Ordered Prescriptions Prescription Sig Dispense Quantity Refills Last Filled Start Date End Date budesonide-formote roL (SYMBICORT) 80-4.5 mcg/actuation inhaler Inhale 2 puffs 2 (two) times a day Rinse mouth with water after use. Do not swallow. 1 Inhaler 3 01/24/2020 tamsulosin (FLOMAX) 0.4 mg extended release capsule Take 2 cap at night 180 capsule 2 01/24/2020 buPROPion XL (WELLBUTRIN XL) 300 mg 24 hr tablet Take 1 tablet (300 mg total) by mouth every morning 30 tablet 3 01/24/2020 documented in this encounter Progress Notes * Shawn Berkowitz MD - 01/24/2020 11:30 AM CDT Images from the original note were not included. Subjective/Objective Patient ID: Curly Cash is a 64 y.o. male. Chief Complaint Chief Complaint Patient presents with ??? Follow-up 3 mo follow up on GERD,Dyslipidemai,Hx CVA - no labs ??? Urinary Symptom frequent urination - few accidents ??? Sinus Problem chest congestion at night x 1 week HPI: Patient complains of urgency and frequency and occasional incontinence. Patient is on Flomax 0.4 mg q.h.s.. No burning and no hematuria. The patient has the dry cough and wheezing off and on. No shortness of breath and no chest pain. Hecontinues to smoke. He smokes now about 10 cigarettes daily. According to the the patient is more depressed lately. He lost 2 brothers in the last few months. No suicidal ideations. He has decreased energy and interest and insomnia. He has good appetite. Current Outpatient Medications Medication Sig Dispense Refill ??? amLODIPine (NORVASC) 10 mg tablet TAKE 1 TABLET BY MOUTH EVERY DAY 30 tablet 3 ??? aspirin 325 mg tablet Take 325 mg by mouth daily ??? atorvastatin (LIPITOR) 40 mg tablet Take 1 tablet (40 mg total) by mouth daily 90 tablet 0 ??? famotidine (PEPCID) 40 mg tablet TAKE 1 TABLET BY MOUTH EVERY DAY 30 tablet 3 ??? fluticasone propionate (FLONASE) 50 mcg/actuation nasal spray PLACE 1 SPRAY INTO EACH NOSTRIL EVERY DAY 16 mL 3 ??? gabapentin (NEURONTIN) 800 mg tablet Take 1 tablet (800 mg total) by mouth 4 (four) times a byn517 tablet 1 ??? levETIRAcetam (KEPPRA) 500 mg tablet TAKE 1 TABLET BY MOUTH EVERY 12 HOURS 60 tablet 3 ??? montelukast (SINGULAIR) 10 mg tablet TAKE 1 TABLET BY MOUTH EVERY DAY 90 tablet 1 ??? tamsulosin (FLOMAX) 0.4 mg extended release capsule Take 2 cap at night 180 capsule 2 ??? traMADoL (ULTRAM) 50 mg tablet Take 50 mg by mouth 4 (four) times a day ??? budesonide-formoteroL (SYMBICORT) 80-4.5 mcg/actuation inhaler Inhale 2 puffs 2 (two) times a day Rinse mouth with water after use. Do not swallow. 1 Inhaler 3 ??? buPROPion XL (WELLBUTRIN XL) 300 mg 24 hr tablet Take 1 tablet (300 mg total) by mouth every morning 30 tablet 3 ??? diclofenac sodium (VOLTAREN) 1 % gel Apply 2 g topically 3 (three) times a day No current facility-administered medications for this visit. Allergies Allergen Reactions ??? Codeine Itching Reaction: Itching, Past Medical History: Diagnosis Date ??? Depression ??? Hyperlipidemia ??? Hypertension ??? Stroke (CMS/HCC) Past Surgical History: Procedure Laterality Date ??? IR G TUBE PLACEMENT PERCUTANEOUS N/A 11/02/2013 ??? JOINT REPLACEMENT ??? SPINE SURGERY Family History Problem Relation Age of Onset ??? Heart disease Mother ??? Heart disease Father ??? Heart attack Father Social History Socioeconomic History ??? Marital status: Spouse name: Not on file ??? Number of children: Not on file ??? Years of education: Not on file ??? Highest education level: Not on file Occupational History ??? Not on file Social Needs ??? Financial resource strain: Not on file ??? Food insecurity Worry: Not on file Inability: Not on file ??? Transportation needs Medical: Not on file Non-medical: Not on file Tobacco Use ??? Smoking status: Current Every Day Smoker Packs/day: 0.25 ??? Smokeless tobacco: Never Used Substance and Sexual Activity ??? Alcohol use: Never Frequency: Never ??? Drug use: Never ??? Sexual activity: Not on file Lifestyle ??? Physical activity Days per week: Not on file Minutes per session: Not on file ??? Stress: Not on file Relationships ??? Social connections Talks on phone: Not on file Gets together: Not on file Attends alevism service: Not on file Active member of club or organization: Not on file Attends meetings of clubs or organizations: Not on file Relationship status: Not on file ??? Intimate partner violence Fear of current or ex partner: Not on file Emotionally abused: Not on file Physically abused: Not on file Forced sexual activity: Not on file Other Topics Concern ??? Not on file Social History Narrative ??? Not on file Review of Systems Constitutional: Negative for appetite change, fatigue and fever. HENT: Negative for ear discharge, ear pain and hearing loss. Negative for postnasal drip, rhinorrhea, sinus pressure, sneezing . Negative for sore throat. Eyes: Negative for pain and discharge. Respiratory: Negative for cough, chest tightness, shortness of breath and wheezing. Cardiovascular: Negative for chest pain, palpitations and leg swelling. Gastrointestinal: Negative for abdominal pain, constipation, diarrhea, nausea and vomiting. Endocrine: Negative for cold intolerance, heat intolerance, polydipsia and polyuria. Genitourinary: Negative for difficulty urinating, flank pain, positive frequency and no hematuria. Musculoskeletal: Negative for back pain, myalgias and neck pain. Skin: Negative for color change and rash. Neurological: Negative for dizziness, seizures, syncope, weakness and numbness. Hematological: Does not bruise/bleed easily. Psychiatric/Behavioral: Negative for confusion and hallucinations. The patient is not nervous/anxious. BP 114/66 (BP Location: Left arm) Pulse 68 Temp 36.5 ??C (97.7 ??F) (Temporal) Resp 16 Ht 177.8 cm (5' 10 ) Wt 72.5 kg (159 lb 12.8 oz) SpO2 97% BMI 22.93 kg/m?? Body mass index is 22.93 kg/m??. Physical Exam Constitutional: Patient is oriented to person, place, and time. Patient appears well-developed and well-nourished. On a wheelchair. Positive dysarthria HENT: Head: Normocephalic and atraumatic. Right Ear: External ear normal. Intact tympanic membrane Left Ear: External ear normal. Intact tympanic membrane Nose: Nose normal. Mouth/Throat: Oropharynx is clear and moist. Eyes: Pupils are equal, round, and reactive to light. EOM are normal. Neck: Normal range of motion. Neck supple. No thyromegaly present. Cardiovascular: Regular rate and rhythm. No murmur or gallop or rub. Pulmonary/Chest: Good air entry bilaterally. No wheezing or rales or other sounds. No chest tenderness or deformity Abdominal: Soft. No tenderness. No hepatosplenomegaly and no masses. Good bowel sounds. No hernia. Rectal: Not examined. Musculoskeletal: Normal range of motion. No tenderness or swelling or deformity. Lymphadenopathy: No cervical adenopathy. Extremities: No cyanosis, clubbing or edema. Neurological: Patient is alert and oriented to person, place, and time. Cranial nerves are intact. Reflexes are +2 all over, right side weakness . Skin: Skin is warm. No rash noted. No pallor. Psychiatric: Patient has a normal mood and affect. Procedure Note: No notes on file Diagnoses and all orders for this visit: Hemiparesis as late effect of cerebrovascular accident (CVA) ([facility]) (Primary) Assessment & Plan: No change and continue aspirin daily Essential (primary) hypertension Assessment & Plan: Continue current medications. Discussed low-salt diet. Discussed exercise on regular basis. Will continue to monitor Benign prostatic hyperplasia without lower urinary tract symptoms Assessment & Plan: Patient has persistent symptoms and we will increase Flomax to 0.8 mg q.h.s. and the will callfor persistent symptoms Dyslipidemia Assessment & Plan: Controlled on current medications. Continue low-fat diet. Will continue to monitor . Orders: - Comprehensive metabolic panel; Future - Lipid panel; Future Smoking Assessment & Plan: Discussed smoking cessation and different methods to help with that. Discussed the risks of smokingincluding COPD, CAD and lung cancer etc. Total time spent was 3 minutes. Seizure (CMS/HCC) Assessment & Plan: Controlled on Keppra Recurrent major depressive disorder, in full remission (CMS/HCC) Assessment & Plan: Patient has persistent depression. We will stop Prozac slowly and start him on Wellbutrin XL 300 mgdaily. The was instructed to call for persistent symptoms. Encounter for immunization - Flu Vaccine Quad High Dose PF 65Y+ IM - Fluzone High Dose Quad Seizure disorder (CMS/HCC) - Levetiracetam level; Future Simple chronic bronchitis (CMS/HCC) Assessment & Plan: Patient has COPD. We discussed the importance of smoking cessation. Will start him on Symbicort 80 mcg 2 puffs b.i.d. and instructed to rinse his mouth after each use. Other orders - buPROPion XL (WELLBUTRIN XL) 300 mg 24 hr tablet; Take 1 tablet (300 mg total) by mouth every morning - tamsulosin (FLOMAX) 0.4 mg extended release capsule; Take 2 cap at night - budesonide-formoteroL (SYMBICORT) 80-4.5 mcg/actuation inhaler; Inhale 2 puffs 2 (two) times a day Rinse mouth with water after use. Do not swallow. I spent a total of 45 Face to Face minutes of which more than 50% of the time was spent in counseling and coordination of care. This time included: Counseling on depression and changing medications. Counseling on COPD and smoking cessation and instructions on the use of the inhaler. Counseling on enlarged prostate and medications. documented in this encounter Miscellaneous Notes * Assessment & Plan Note - Shawn Berkowitz MD - 01/24/2020 12:05 PM CDT Associated Problem(s): Benign prostatic hyperplasia without lower urinary tract symptoms Patient has persistent symptoms and we will increase Flomax to 0.8 mg q.h.s. and the will callfor persistent symptoms * Assessment & Plan Note - Shawn Berkowitz MD - 01/24/2020 12:05 PM CDT Associated Problem(s): Dorsalgia Managed by the [place] physician * Assessment & Plan Note - Shawn Berkowitz MD - 01/24/2020 12:05 PM CDT Associated Problem(s): Dyslipidemia Controlled on current medications. Continue low-fat diet. Will continue to monitor . * Assessment & Plan Note - Shawn Berkowitz MD - 01/24/2020 12:05 PM CDT Associated Problem(s): Essential (primary) hypertension Continue current medications. Discussed low-salt diet. Discussed exercise on regular basis. Will continue to monitor * Assessment & Plan Note - Shawn Berkowitz MD - 01/24/2020 12:05 PM CDT Associated Problem(s): Hemiparesis as late effect of cerebrovascular accident (CVA) (CMS/HCC) (HCC) No change and continue aspirin daily * Assessment & Plan Note - Shawn Berkowitz MD - 01/24/2020 12:04 PM CDT Associated Problem(s): Recurrent major depressive disorder, in full remission (CMS/HCC) (HCC) Patient has persistent depression. We will stop Prozac slowly and start him on Wellbutrin XL 300 mgdaily. The was instructed to call for persistent symptoms. * Assessment & Plan Note - Shawn Berkowitz MD - 01/24/2020 12:04 PM CDT Associated Problem(s): Seizure (HCC) Controlled on Keppra * Assessment & Plan Note - Shawn Berkowitz MD - 01/24/2020 12:03 PM CDT Associated Problem(s): Simple chronic bronchitis (HCC) Patient has COPD. We discussed the importance of smoking cessation. Will start him on Symbicort 80 mcg 2 puffs b.i.d. and instructed to rinse his mouth after each use. * Assessment & Plan Note - Shawn Berkowitz MD - 01/24/2020 12:03 PM CDT Associated Problem(s): Smoking Discussed smoking cessation and different methods to help with that. Discussed the risks of smokingincluding COPD, CAD and lung cancer etc. Total time spent was 3 minutes. documented in this encounter Plan of Treatment Scheduled Orders Name Type Priority Associated Diagnoses Orde r Schedule Comprehensive metabolic panel Lab Routine Dyslipidemia Expected: 01/24/2020, Expires: 01/23/2021 Lipid panel Lab Routine Dyslipidemia Expected: 01/24/2020, Expires: 01/23/2021 Levetiracetam level Lab Routine Seizure disorder (CMS/HCC) Expected: 01/24/2020, Expires: 01/23/2021 documented as of this encounter Visit Diagnoses Diagnosis Hemiparesis as late effect of cerebrovascular accident (CVA) ([facility]) (HCC)- Primary Essential (primary) hypertension Unspecified essential hypertension Benign prostatic hyperplasia without lower urinary tract symptoms Dyslipidemia Other and unspecified hyperlipidemia Smoking Tobacco use disorder Seizure (HCC) Other convulsions Recurrent major depressive disorder, in full remission (CMS/HCC) (HCC) Encounter for immunization Seizure disorder ([facility]) (HCC) Unspecified epilepsy without mention of intractable epilepsy Simple chronic bronchitis (HCC) Simple chronic bronchitis documented in this encounter Discontinued Medications Medication Sig Discontinue Reason Start Date End Da te FLUoxetine (PROzac) 40 mg capsule TAKE 1 CAPSULE BY MOUTH EVERY DAY 11/09/2019 01/24/2020 tamsulosin (FLOMAX) 0.4 mg extended release capsule TAKE 1 CAPSULE BY MOUTH EVERY DAY 11/09/2019 01/24/2020 documented as of this encounter Historical Medications * This list may reflect changes made after this encounter. 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 difficile Comment:Germ watcher auto flagging 01/15/2014 01/15/2014 documented as of this encounter Care Teams Language Arts Teacher Relationship Specialty Start Date End Date Shawn Berkowitz MD [address] [place] [address] [place] [id number] PCP - General Internal Medicine 08/11/18 documented as of this encounter
--- OUTSIDE RECORDS SUMMARY | 2024-04-03 17:33 | XMS_ITS | Encounter Summary ---
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
--- OUTSIDE RECORDS SUMMARY | 2024-04-03 17:33 | XMS_ITS | Encounter Summary ---
Author Organization [facility] Address [address] [facility] [address] [place] [address] Care Team Providers Care Aegis Console Operator Track Name Role Phone Shawn Berkowitz MD Primary Care Provider [phone] Reason for Visit * Reason Comments Follow-up Labs not done -CVA Hypertension Arm Pain right arm pain X 2 w eeks Fall X 2 weeks ago Encounter Details Date Type Department Care Team (Late st Contact Info) Description 06/23/2019 11:15 AM CDT Telemedicine [facility] Internal Medicine [address] [facility] [address] [place] [phone] [place] [address] [place] [address] [address] [place], [place] [id number] Pain of right upper extremity (Primary Dx); Dyslipidemia; Gastroesophageal reflux disease without esophagitis; History of CVA with residual deficit; Essential (primary) hypertension; Major depressive disorder, remission status unspecified, unspecified whether recurrent Social History Tobacco Use Types Packs/Day Years [...] on file 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 No / Unsure 06/21/2019 10:39 AM CDT documented as of this encounter Ordered Prescriptions Prescription Sig Dispense Quantity Refills Last Filled Start Date End Date fluticasone propionate (FLONASE) 50 mcg/actuation nasal spray Administer 1 spray into each nostril daily 1 Inhaler 3 06/23/2019 0 documented in this encounter Progress Notes * Shawn Berkowitz MD - 06/23/2019 11:15 AM CDT Images from the original note were not included. Subjective/Objective Patient ID: Curly Cash is a 63 y.o. male. Chief Complaint Chief Complaint Patient presents with ??? Follow-up Labs not done -CVA ??? Hypertension ??? Arm Pain right arm pain X 2 weeks Fall X 2 weeks ago HPI: The the patient's was on the phone with him. He fell about 2 weeks ago and landed on his right arm. He has pain. He takes tramadol 2 tablets twice daily with good relief. He denied swelling. He is able to move his right arm in all directions. No bruising. No other new complaints PE Current Outpatient Medications Medication Sig Dispense Refill ??? amLODIPine (NORVASC) 10 mg tablet TAKE 1 TABLET BY MOUTH EVERY DAY 30 tablet 3 ??? aspirin 325 mg tablet Take 325 mg by mouth daily ??? atorvastatin (LIPITOR) 40 mg tablet TAKE 1 TABLET BY MOUTH EVERY DAY 30 tablet 4 ??? famotidine (PEPCID) 40 mg tablet Take 1 tablet (40 mg total) by mouth daily 30 tablet 3 ??? FLUoxetine (PROzac) 40 mg capsule TAKE 1 CAPSULE BY MOUTH EVERY DAY 30 capsule 3 ??? fluticasone propionate (FLONASE) 50 mcg/actuation nasal spray Administer 1 spray into each nostril daily 1 Inhaler 3 ??? gabapentin (NEURONTIN) 800 mg tablet TAKE 1 TABLET BY MOUTH 4 TIMES A DAY 120 tablet 1 ??? levETIRAcetam (KEPPRA) 500 mg tablet TAKE 1 TABLET BY MOUTH EVERY 12 HOURS 60 tablet 3 ??? metoprolol (LOPRESSOR) 25 mg tablet TAKE 1 TABLET BY MOUTH TWICE A DAY 60 tablet 3 ??? tamsulosin (FLOMAX) 0.4 mg extended release capsule TAKE 1 CAPSULE BY MOUTH EVERY DAY 30 capsule 3 ??? traMADoL (ULTRAM) 50 mg tablet Take 50 mg by mouth 4 (four) times a day No current facility-administered medications [...] ??? Smoking status: Current Every Day Smoker ??? Smokeless tobacco: Never Used ??? Tobacco comment: about 4 a day Substance and Sexual Activity ??? Alcohol use: Never Frequency: Never ??? Drug use: Never ??? Sexual activity: Not on file Lifestyle ??? Physical activity Days per week: Not on file Minutes per session: Not on file ??? Stress: Not on file Relationships ??? Social connections Talks on phone: Not on file Gets together: Not on file Attends yazidism service: Not on file Active member of [...] Genitourinary: Negative for difficulty urinating, flank pain, frequency and hematuria. Musculoskeletal: Negative for back pain, myalgias and neck pain. Skin: Negative for color change and rash. Neurological: Negative for dizziness, seizures, syncope, weakness and numbness. Hematological: Does not bruise/bleed easily. Psychiatric/Behavioral: Negative for confusion and hallucinations. The patient is not nervous/anxious. There were no vitals taken for this visit. There is no height or weight on file to calculate BMI. Diagnoses and all orders for this visit: Pain of right upper extremity (Primary) Assessment & Plan: The patient has pain in the right upper arm after a fall couple of weeks ago. He takes tramadol with good relief. There is no swelling or discoloration and he is able to move his arm in all directions. They will call if there is any change in the condition. Dyslipidemia Assessment & Plan: Controlled on current medications. Continue low-fat diet. Will continue to monitor . Gastroesophageal reflux disease without esophagitis History of CVA with residual deficit Assessment & Plan: The patient had history of CVA with right-sided weakness. He uses a walker for ambulation. We discussed fall precautions. Essential (primary) hypertension Major depressive disorder, remission status unspecified, unspecified whether recurrent Other orders - fluticasone propionate (FLONASE) 50 mcg/actuation nasal spray; Administer 1 spray into each nostril daily This was a telemedicine visit with Curly Cash which took place via Telephone. During the visit, I was located my office at [address] [place] [address] [place], [place] and the patient was located at home. The session started at 11:04 a.m. and ended at 11:20 a.m.. The patient has been informed that the visit may not be secure and acknowledged the information. documented in this encounter Miscellaneous Notes * Assessment & Plan Note - Shawn Berkowitz MD - 06/23/2019 11:21 AM CDT Associated Problem(s): History of CVA with residual deficit The patient had history of CVA with right-sided weakness. He uses a walker for ambulation. We discussed fall precautions. * Assessment & Plan Note - Shawn Berkowitz MD - 06/23/2019 11:21 AM CDT Associated Problem(s): Dyslipidemia Controlled on current medications. Continue low-fat diet. Will continue to monitor . * Assessment & Plan Note - Shawn Berkowitz MD - 06/23/2019 11:20 AM CDT Associated Problem(s): Pain of right upper extremity The patient has pain in the right upper arm after a fall couple of weeks ago. He takes tramadol with good relief. There is no swelling or discoloration and he is able to move his arm in all directions. They will call if there is any change in the condition. documented in this encounter Plan of Treatment Not on file documented as of this encounter Visit Diagnoses Diagnosis Pain of right upper extremity- Primary Dyslipidemia Other and unspecified hyperlipidemia Gastroesophageal reflux disease without esophagitis Esophageal reflux History of CVA with residual deficit Essential (primary) hypertension Unspecified essential hypertension Major depressive disorder, remission status unspecified, unspecified whether recurrent documented in this encounter Discontinued Medications Medication Sig Discontinue Reason Start Date End Da te fluticasone propionate (FLONASE) 50 mcg/actuation nasal spray Administer 1 spray into each nostril daily Reorder 06/23/2019 documented as of this encounter Historical Medications * This list may reflect changes made after this encounter. 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 difficile Comment:Germ watcher auto flagging 01/15/2014 01/15/2014 documented as of this encounter Care Teams Aegis Console Operator Track Relationship Specialty Start Date End Date Shawn Berkowitz MD [address] [facility] [address] [address] PCP - General Internal Medicine 08/11/18 documented as of this encounter
--- OUTSIDE RECORDS SUMMARY | 2024-04-03 17:33 | XMS_ITS | Encounter Summary ---
Author Organization [facility] Address [address] [place] [address] Care Team Providers Care Voice Data Communications Engineer Name Role Phone Shawn Berkowitz MD Primary Care Provider [phone] Encounter Details Date Type Department Care Team (Late st Contact Info) Description 11/17/2020 Telephone 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 Will follow up with neurology. * Telephone Encounter - Nancy Crane MA - 11/17/2020 4:09 PM CDT ----- Message from Golden Chowdary MD sent at 11/16/2020 6:14 PM CDT ----- Regarding: RE: Question He doesn't really need any routine imaging from a neurosurgical standpoint. He should be following up with a neurologist due to his history of stroke. Thx ----- Message ----- From: Nancy Crane MA Sent: 11/16/2020 3:23 PM CDT To: Golden Chowdary MD Subject: Question This patient was treated 01/11/14 POSTOPERATIVE DIAGNOSIS (ES): 1. History of prior left middle cerebral artery malignant infarction. 2. 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 ?? NAME OF OPERATION: Left sided cranioplasty using autologous bone flaps of greater than 15 cm in Diameter. calling asking how often he should be having imaging done. Last carotid doppler 09/04/18, last CT Head 01/25/16, last Angio 2014. Nancy Cooper documented in this encounter Plan of Treatment Not on file documented as of this encounter Visit Diagnoses Not on filedocumented in this encounter Additional Health Concerns Infection Onset Date Last Indicated Resolved Time C. difficile Comment:Germ watcher auto flagging 01/15/2014 01/15/2014 documented as of this encounter Care Teams Voice Data Communications Engineer Relationship Specialty Start Date End Date Shawn Berkowitz MD [address] [place] [address] PCP - General Internal Medicine 08/11/18 documented as of this encounter
--- OUTSIDE RECORDS SUMMARY | 2024-04-03 17:33 | XMS_ITS | Encounter Summary ---
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
--- OUTSIDE RECORDS SUMMARY | 2024-04-03 17:33 | XMS_ITS | Encounter Summary ---
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
--- OUTSIDE RECORDS SUMMARY | 2024-04-03 17:33 | XMS_ITS | Encounter Summary ---
Author Organization [facility] Address [address] 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 Carl as of 05/29/20-off Dr. Berkowitz's panel- Linda Ann RN, BSN [facility] Floral Decorator for High Risk [phone] NSION SERVICE SPECIALIST IN CHARGE * Telephone Encounter - Linda Ann RN - 05/30/2020 12:54 PM EXTENSION SERVICE SPECIALIST IN CHARGE [facility]- ER 05/29/20- [facility]- recent exposure to covid 19 along w/ n/v- abd pain/chest pain- R ft pain- exan/eval- ? Colitis? Recommend GI f/u and home on augmentin/norco/zofran-tested negative for Covid 19- lives w/ - she was also seen in ER as well- she states he is better- and he has new meds as well- aware of needing ER f/u- please see notes on Janeen Cash for more information - Linda Ann RN, BSN [facility] Floral Decorator for High Risk [phone] NSION SERVICE SPECIALIST IN CHARGE NSION SERVICE SPECIALIST IN CHARGE documented in this encounter Plan of Treatment Not on file documented as of this encounter Visit Diagnoses Not on filedocumented in this encounter Additional Health Concerns 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 difficile Comment:Germ watcher auto flagging 01/15/2014 01/15/2014 documented as of this encounter Care Teams Director Internal Audit Relationship Specialty Start Date End Date Shawn Berkowitz MD [address] [facility] [address] [place] [address] [place] [id number] PCP - General Internal Medicine 08/11/18 documented as of this encounter
--- OUTSIDE RECORDS SUMMARY | 2024-04-03 17:33 | XMS_ITS | Encounter Summary ---
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 Gender Identity Not on file Sexual Orientation Not on file documented as of this encounter Miscellaneous Notes * Telephone Encounter - Linda Ann RN - 04/22/2020 6:29 PM CST [facility]- 04/24/20 appt- gap in care- depression/fall screen- shoaib- Linda Ann RN,BSN [facility] Motorcycle Mechanic Apprentice for High Risk [phone] NTIST/ENGINEER documented in this encounter Plan of Treatment Not on file documented as of this encounter Visit Diagnoses Not on filedocumented in this encounter Additional Health Concerns 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 difficile Comment:Germ watcher auto flagging 01/15/2014 01/15/2014 documented as of this encounter Care Teams Assembler Metal Building Relationship Specialty Start Date End Date Shawn Berkowitz MD [address] [facility] [address] [place] [address] [place] [id number] PCP - General Internal Medicine 08/11/18 documented as of this encounter
--- OUTSIDE RECORDS SUMMARY | 2024-04-03 17:33 | XMS_ITS | Encounter Summary ---
Author Organization [facility] Address [address] [place] [address] Care Team Providers Care [employer] Operator Name Role Phone Shawn Berkowtiz MD Primary Care Provider [phone] Reason for Visit * Reason Comments Follow-up 20 day follow on Rt arm pain - from a fall Encounter Details Date Type Department Care Team (Late st Contact Info) Description 07/13/2019 1:30 PM CDT Telemedicine [facility] Internal Medicine [address] [place] [address] Shawn Berkowitz MD [address] [place] [address] [address] [place] [address] Hemiparesis as late effect of cerebrovascular accident (CVA) (CMS/HCC) (Primary Dx); Major depressive disorder, remission status unspecified, unspecified whether recurrent; Seizure (CMS/HCC); Dyslipidemia; Pain of right upper extremity; Benign prostatic hyperplasia without lower urinary tract symptoms; Dorsalgia Social History Tobacco Use Types Packs/Day Years [...] on file 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 No / Unsure 06/29/2019 10:13 AM CDT documented as of this encounter Progress Notes * Shawn Berkowitz MD - 07/13/2019 1:30 PM CDT Images from the original note were not included. Subjective/Objective Patient ID: Curly Cash is a 63 y.o. male. Chief Complaint Chief Complaint Patient presents with ??? Follow-up 20 day follow on Rt arm pain - from a fall HPI: The patient has no new complaints. The arm pain subsided. No seizure activities. The patient continues to have weakness but he uses a walker for ambulation. The patient has dysarthria. Current Outpatient Medications Medication Sig Dispense Refill [...] file Gets together: Not on file Attends evangelical service: Not on file Active member of [...] as late effect of cerebrovascular accident (CVA) ([facility]) (Primary) Assessment & Plan: No change and continue aspirin daily Major depressive disorder, remission status unspecified, unspecified whether recurrent Assessment & Plan: Controlled on fluoxetine Seizure ([facility]) Assessment & Plan: Controlled on Keppra and will obtain Keppra level Orders: - Levetiracetam level; Future Dyslipidemia Assessment & Plan: Controlled on current medications. Continue low-fat diet. Will continue to monitor . Orders: - Lipid panel; Future - Comprehensive metabolic panel; Future Pain of right upper extremity Assessment & Plan: Resolved Benign prostatic hyperplasia without lower urinary tract symptoms Assessment & Plan: Patient is asymptomatic and he is maintained on Flomax Orders: - PSA screen; Future Dorsalgia Assessment & Plan: [facility] This was a telemedicine visit with Curly Cash alone which took place via Telephone. During thevisit, I was located [address] [place] [address] and the patient was located at home. The session started at 1:42 p.m. and ended at 1:55 p.m. The patient has been informed that the visit may not be secure and acknowledged the information. I have explained the option of participating in a telephone or video visit during the COVID-19 public health emergency to the patient. After being given an opportunity to ask questions about and discuss this type of visit, the patient verbally consented to proceeding with the telephone / video visit. The patient understands that this service replaces an office visit and they may be billed and/or responsible for any applicable copayments. documented in this encounter Miscellaneous Notes * Assessment & Plan Note - Shawn Berkowitz MD - 07/13/2019 1:53 PM CDT Associated Problem(s): Dorsalgia [facility]aged by the [facility] * Assessment & Plan Note - Shawn Berkowitz MD - 07/13/2019 1:53 PM CDT Associated Problem(s): Pain of right upper extremity Resolved * Assessment & Plan Note - Shawn Berkowitz MD - 07/13/2019 1:53 PM CDT Associated Problem(s): Dyslipidemia Controlled on current medications. Continue low-fat diet. Will continue to monitor . * Assessment & Plan Note - Shawn Berkowitz MD - 07/13/2019 1:53 PM CDT Associated Problem(s): Benign prostatic hyperplasia without lower urinary tract symptoms Patient is asymptomatic and he is maintained on Flomax * Assessment & Plan Note - Shawn Berkowitz MD - 07/13/2019 1:53 PM CDT Associated Problem(s): Seizure (HCC) Controlled on Keppra and will obtain Keppra level * Assessment & Plan Note - Shawn Berkowitz MD - 07/13/2019 1:53 PM CDT Associated Problem(s): Recurrent major depressive disorder, in full remission (CMS/HCC) (HCC) (Deleted) Controlled on fluoxetine * Assessment & Plan Note - Shawn Berkowitz MD - 07/13/2019 1:53 PM CDT Associated Problem(s): Hemiparesis as late effect of cerebrovascular accident (CVA) (CMS/HCC) (HCC) No change and continue aspirin daily * Addendum Note - Nenita Park - 07/13/2019 1:30 PM CDTAddended by: NENITA PARK on: 10/19/2019 09:28 AM Modules accepted: Orders * Addendum Note - Nenita Park - 07/13/2019 1:30 PM CDTAddended by: NENITA PARK on: 10/19/2019 09:28 AM Modules accepted: Orders * Addendum Note - Nenita Park - 07/13/2019 1:30 PM CDTAddended by: NENITA PARK on: 10/19/2019 09:28 AM Modules accepted: Orders * Addendum Note - Nenita Park - 07/13/2019 1:30 PM CDTAddended by: NENITA PARK on: 10/19/2019 09:28 AM Modules accepted: Orders documented in this encounter Plan of Treatment Scheduled Orders Name Type Priority Associated Diagnoses Orde r Schedule PSA screen Lab Routine Benign prostatic hyperplasia without lower urinary tract symptoms Expected: 07/13/2019, Expires: 07/12/2020 Comprehensive metabolic panel Lab Routine Dyslipidemia Expected: 07/13/2019, Expires: 07/12/2020 Lipid panel Lab Routine Dyslipidemia Expected: 07/13/2019, Expires: 07/12/2020 documented as of this encounter Procedures Procedure Name Priority Date/Time Associated Diagnosis Comments PSA SCREEN Routine 10/20/2019 9:35 AM CDT LEVETIRACETAM LEVEL Routine 10/20/2019 9 :35 AM CDT Seizure (CMS/HCC) LIPID PANEL Routine 10/20/2019 9:35 AM CDT COMPREHENSIVE METABOLIC PANEL Routine 10/20/2019 9:35 AM CDT documented in this encounter Results * PSA screen (10/20/2019 9:35 AM CDT) PSA 3.5 < OR = 4.0 ng/mL [facility] Comment: The total PSA value from this assay system is standardized against the WHO standard. The test result will be approximately 20% lower when compared to the equimolar-standardized total PSA (Shreyas July). Comparison of serial PSA results should be interpreted with this fact in mind. This test was performed using the Siemens chemiluminescent method. Values obtained from different assay methods cannot be used interchangeably. PSA levels, regardless of value, should not be interpreted as absolute evidence of the presence or absence of disease. 10/20/2019 9:35 AM CDT 10/20/2019 9:39 AM CDT Narrative [facility] - 10/25/2019 3:13 PM CDT FASTING:YES FASTING: YES us Shawn Berkowitz MD LAB BLOOD ORDERABLES Final Result Performing Organization Address City/State/[facility] Co de Phone Number [facility] [address] [place] [address] * (ABNORMAL) Comprehensive metabolic panel (10/20/2019 9:35 AM CDT) Glucose 103(H) 65 - 99 mg/dL [facility] Comment: ? Fasting reference interval For someone without known diabetes, a glucose value between 100 and 125 mg/dL is consistent with prediabetes and should be confirmed with a follow-up test. BUN 15 7 - 25 mg/dL [facility] Creatinine 1.10 0.70 - 1.25 mg/dL [facility] Comment: For patients >49 years of age, the reference limit for Creatinine is approximately 13% higher for people identified as -Iraqi. eGFR NON-AFR. SWEDISH 70 > OR = 60 mL/min/1 .73m2 [facility] EGFR 81 > OR = 60 mL/min/1 .73m2 [facility] BUN/creat ratio NOT APPLICABLE 6 - 22 (calc) [facility] Sodium 145 135 - 146 mmol/L [facility] Potassium, pl 4.5 3.5 - 5.3 mmol/L [facility] Chloride 107 98 - 110 mmol/L [facility] CO2 29 20 - 32 mmol/L [facility] Calcium 9.4 8.6 - 10.3 mg/dL [facility] Protein, sr 7.4 6.1 - 8.1 g/dL [facility] Albumin 4.0 3.6 - 5.1 g/dL [facility] GLOBULIN 3.4 1.9 - 3.7 g/dL (calc) [facility] Alb/glob ratio 1.2 1.0 - 2.5 (calc) [facility] Bilirubin, total 0.6 0.2 - 1.2 mg/dL [facility] Alk phos 96 35 - 144 U/L [facility] AST 12 10 - 35 U/L [facility] ALT (SGPT) 11 9 - 46 U/L [facility] 10/20/2019 9:35 AM CDT 10/20/2019 9:39 AM CDT Narrative [facility] - 10/25/2019 3:13 PM CDT FASTING:YES FASTING: YES us Shawn Berkowitz MD LAB BLOOD ORDERABLES Final Result [facility] [address] [place] [id number] * (ABNORMAL) Lipid panel (10/20/2019 9:35 AM CDT) Cholesterol 70 <200 mg/dL [facility] HDL 35(L) > OR = 40 mg/dL [facility] Triglycerides 51 <150 mg/dL [facility] LDL 22 mg/dL (calc) [facility] Comment: Reference range: <100 Desirable range <100 mg/dL for primary prevention; ?? <70 mg/dL for patients with CHD or diabetic patients with > or = 2 CHD risk factors. LDL-C is now calculated using the Kenn calculation, which is a validated novel method providing better accuracy than the Friedewald equation in the estimation of LDL-C. Geo ARGUELLO et al. KELTON. 2013;310(19): 3156-7309 (http://education.Space Pencil/faq/FJI252) Chol/HDL ratio 2.0 <5.0 (calc) [facility] Non-HDL, (LDL+VLDL) 35 <130 mg/dL (calc) [facility] Comment: For patients with diabetes plus 1 major ASCVD risk factor, treating to a non-HDL-C goal of <100 mg/dL (LDL-C of <70 mg/dL) is considered a therapeutic option. 10/20/2019 9:35 AM CDT 10/20/2019 9:39 AM CDT [facility] - 10/25/2019 3:13 PM CDT FASTING:YES FASTING: YES Shawn Berkowitz MD LAB BLOOD ORDERABLES Final Result Performing Organization Address City/State/[facility] Co de Phone Number [facility] [address] [facility] [place] [address] * Levetiracetam level (10/20/2019 9:35 AM CDT) Pathologist [facility] LEVETIRACETAM 32.2 mcg/mL [facility] Comment: ? Reference Range: 12.0-46.0 ? Toxic level is not well ? established. Interpretation ? should include a clinical ? evaluation. ? For additional information, please refer to http://education.Space Pencil/faq/BVU232 (This link is being provided for informational/educational purposes only.) This test was developed and its analytical performance characteristics have been determined by [facility]. It has not been cleared or approved by the FDA. This assay has been validated pursuant to the CLIA regulations and is used for clinical purposes. Blood specimen (specimen) 10/20/2019 9:35 AM CDT 10/20/2019 9:39 AM CDT [facility] - 10/25/2019 3:13 PM CDT FASTING:YES FASTING: YES Shawn Berkowitz MD LAB BLOOD ORDERABLES Final Result Performing Organization Address City/State/[facility] Co de Phone Number [facility] [address] [place] [address] documented in this encounter Visit Diagnoses Diagnosis Hemiparesis as late effect of cerebrovascular accident (CVA) (CMS/HCC) (HCC)- Primary Major depressive disorder, remission status unspecified, unspecified whether recurrent Seizure (HCC) Other convulsions Dyslipidemia Other and unspecified hyperlipidemia Pain of right upper extremity Benign prostatic hyperplasia without lower urinary tract symptoms Dorsalgia Pain in thoracic spine documented in this encounter Additional Health Concerns 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 difficile Comment:Germ watcher auto flagging 01/15/2014 01/15/2014 documented as of this encounter Care Teams [employer] Operator Relationship Specialty Start Date End Date Shawn Berkowitz MD [facility] [place] [address] PCP - General Internal Medicine 08/11/18 documented as of this encounter
--- OUTSIDE RECORDS SUMMARY | 2024-04-03 17:33 | XMS_ITS | Encounter Summary ---
Author Organization [facility] Address [address] [place] [address] Care Team Providers Care Outsole Caser Name Role Phone Shawn Berkowitz MD Primary Care Provider [phone] Reason for Visit * Reason Comments Follow-up 3 month f/u - no Lab s - Right eye redness Hypertension Hyperlipidemia Migraine Arm Pain right Depression Encounter Details Date Type Department Care Team (Late st Contact Info) Description 11/25/2018 10:15 AM CDT Office Visit [facility] Internal Medicine [address] [facility] [facility] [facility] [address] [place] [phone] Shawn Berkowitz MD [address] [place] [address] [address] [place], [place] [id number] Hemiparesis as late effect of cerebrovascular accident (CVA) (CMS/HCC) (Primary Dx); Major depressive disorder, remission status unspecified, unspecified whether recurrent; Essential (primary) hypertension; Pure hypercholesterolemia; Seizure (CMS/HCC); Benign prostatic hyperplasia without lower urinary tract symptoms; Occlusion of left carotid artery; Dorsalgia Social History Tobacco Use Types Packs/Day [...] on file 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 Gender Identity Not on file Sexual Orientation Not on file documented as of this encounter Last Filed Vital Signs Vital Sign Reading Time Taken Comments Blood Pressure 110/50 11/25/2018 10:16 AM CDT Pulse 63 11/25/2018 10:16 AM CDT Temperature 36.3 ??C (97.3 ??F) 11/25/2018 10:16 AM C DT Respiratory Rate 18 11/25/2018 10:16 AM CDT Oxygen Saturation 95% 11/25/2018 10:16 AM CDT Inhaled Oxygen Concentration - - Weight - - Height 177.8 cm (5' 10 ) 11/25/2018 10:16 AM CDT Body Mass Index - - documented in this encounter Ordered Prescriptions Prescription Sig Dispense Quantity Refills Last Filled Start Date End Date FLUoxetine (PROzac) 40 mg capsule Take 1 capsule (40 mg total) by mouth daily 30 capsule 5 11/25/2018 0 documented in this encounter Progress Notes * Shawn Berkowitz MD - 11/25/2018 10:15 AM CDT Images from the original note were not included. Subjective/Objective Patient ID: Curly Cash is a 63 y.o. male. Chief Complaint Chief Complaint Patient presents with ??? Follow-up 3 month f/u - no Labs - Right eye redness ??? Hypertension ??? Hyperlipidemia ??? Migraine ??? Arm Pain right ??? Depression HPI: Head the patient came today accompanied by his . The patient has dysarthria. The provided the history. The patient had redness and itching in the right eye yesterday but it subsided on its own. The noticed that the patient is more depressed lately. He is sad with decreased energyand interest. No suicidal ideations. Blood work was not done. Patient has chronic right arm pain atthe site of the stroke with no change. Current Outpatient Medications Medication Sig Dispense Refill ??? amLODIPine (NORVASC) 10 mg tablet TAKE 1 TABLET BY MOUTH EVERY DAY 30 tablet 1 ??? aspirin 325 mg tablet Take 325 mg by mouth daily ??? atorvastatin (LIPITOR) 40 mg tablet TAKE 1 TABLET BY MOUTH EVERY DAY 30 tablet 1 ??? gabapentin (NEURONTIN) 800 mg tablet TAKE 1 TABLET BY MOUTH 4 TIMES A DAY 120 tablet 1 ??? levETIRAcetam (KEPPRA) 500 mg tablet TAKE 1 TABLET BY MOUTH EVERY 12 HOURS 60 tablet 1 ??? metoprolol (LOPRESSOR) 25 mg tablet TAKE 1 TABLET BY MOUTH TWICE A DAY 60 tablet 3 ??? raNITIdine (ZANTAC) 300 mg tablet TAKE 1 TABLET BY MOUTH TWICE A DAY (Patient taking differently: TAKE 1 TABLET BY MOUTH TWICE A DAY, PRN) 60 tablet 1 ??? tamsulosin (FLOMAX) 0.4 mg extended release capsule TAKE 1 CAPSULE BY MOUTH EVERY DAY 30 capsule 1 ??? FLUoxetine (PROzac) 40 mg capsule Take 1 capsule (40 mg total) by mouth daily 30 capsule 5 No current facility-administered medications for this visit. Allergies Allergen Reactions ??? Codeine Itching Reaction: Itching, Past Medical History: Diagnosis Date ??? Depression ??? Hyperlipidemia ??? Hypertension ??? Stroke (CMS/FORMERLY [facility]) Past Surgical History: Procedure Laterality Date ??? [...] resource strain: Not on file ??? Food insecurity: Worry: Not on file Inability: Not on file ??? Transportation needs: Medical: Not on file Non-medical: Not on file Tobacco Use ??? Smoking status: Current Every Day Smoker ??? Smokeless tobacco: Never Used ??? Tobacco comment: about 4 a day Substance and Sexual Activity ??? Alcohol use: Never Frequency: Never ??? Drug use: Never ??? Sexual activity: Not on file Lifestyle ??? Physical activity: Days per week: Not on file Minutes per session: Not on file ??? Stress: Not on file Relationships ??? Social connections: Talks on phone: Not on file Gets together: Not on file Attends sabianist service: Not on file Active member of club or organization: Not on file Attends meetings of clubs or organizations: Not on file Relationship status: Not on file ??? Intimate partner violence: Fear of current or ex partner: Not [...] hallucinations. The patient is not nervous/anxious. BP 110/50 Pulse 63 Temp 36.3 ??C (97.3 ??F) (Tympanic) Resp 18 Ht 177.8 cm (5' 10 ) SpO2 95% BMI 26.26 kg/m?? Body mass index is 26.26 kg/m??. Physical Exam Constitutional: Patient is oriented to person, place, and time. Patient appears well-developed and well-nourished. On a wheelchair HENT: Head: Normocephalic and atraumatic. Right Ear: [...] Extremities: No cyanosis, clubbing or edema. Neurological: Positive dysarthria. Patient is alert and oriented to person, place, and time. Cranial nerves are intact. Reflexes are +2 all over, power is 1/5 on the right side and 5/5 on the left side, and intact sensation bilaterally . Skin: Skin is warm. No rash noted. No pallor. Psychiatric: Patient has a normal mood and affect. Procedure Note: No notes on file Diagnoses and all orders for this visit: Hemiparesis as late effect of cerebrovascular accident (CVA) (CMS/HCC) (Primary) Assessment & Plan: No change and continue aspirin daily Major depressive disorder, remission status unspecified, unspecified whether recurrent Assessment & Plan: We will stop amitriptyline and start him on Prozac 40 mg daily and the will call for persistent symptoms otherwise will evaluate him again in few months Essential (primary) hypertension Assessment & Plan: Continue current medications. Discussed low-salt diet. Discussed exercise on regular basis. Will continue to monitor Pure hypercholesterolemia Assessment & Plan: Controlled on current medications. Continue low-fat diet. Will continue to monitor . Orders: - Comprehensive metabolic panel; Future - Lipid panel; Future Seizure (CMS/HCC) Assessment & Plan: Controlled on Keppra and no recent seizure activities Orders: - Levetiracetam level; Future Benign prostatic hyperplasia without lower urinary tract symptoms Assessment & Plan: Controlled on Flomax Occlusion of left carotid artery Assessment & Plan: The patient is maintained on aspirin daily Dorsalgia Assessment & Plan: The patient has a chronic back pain and he was advised to [facility] Other orders - FLUoxetine (PROzac) 40 mg capsule; Take 1 capsule (40 mg total) by mouth daily documented in this encounter Miscellaneous Notes * Assessment & Plan Note - Shawn Berkowitz MD - 11/25/2018 12:04 PM CDT Associated Problem(s): Benign prostatic hyperplasia without lower urinary tract symptoms Controlled on Flomax * Assessment & Plan Note - Shawn Berkowitz MD - 11/25/2018 12:04 PM CDT Associated Problem(s): Seizure (HCC) Controlled on Keppra and no recent seizure activities * Assessment & Plan Note - Shawn Berkowitz MD - 11/25/2018 12:04 PM CDT Associated Problem(s): HLD (hyperlipidemia) (Deleted) Controlled on current medications. Continue low-fat diet. Will continue to monitor . * Assessment & Plan Note - Shawn Berkowitz MD - 11/25/2018 12:04 PM CDT Associated Problem(s): History of CVA with residual deficit Persistent weakness in the right side * Assessment & Plan Note - Shawn Berkowitz MD - 11/25/2018 12:04 PM CDT Associated Problem(s): Essential (primary) hypertension Continue current medications. Discussed low-salt diet. Discussed exercise on regular basis. Will continue to monitor * Assessment & Plan Note - Shawn Berkowitz MD - 11/25/2018 12:04 PM CDT Associated Problem(s): Dorsalgia The patient has a chronic back pain and he was advised to follow up [facility] * Assessment & Plan Note - Shawn Berkowitz MD - 11/25/2018 12:03 PM CDT Associated Problem(s): Recurrent major depressive disorder, in full remission (CMS/HCC) (HCC) (Deleted) We will stop amitriptyline and start him on Prozac 40 mg daily and the will call for persistent symptoms otherwise will evaluate him again in few months * Assessment & Plan Note - Shawn Berkowitz MD - 11/25/2018 12:03 PM CDT Associated Problem(s): Occlusion of left carotid artery The patient is maintained on aspirin daily * Assessment & Plan Note - Shawn Berkowitz MD - 11/25/2018 12:02 PM CDT Associated Problem(s): Hemiparesis as late effect of cerebrovascular accident (CVA) (CMS/HCC) (HCC) No change and continue aspirin daily documented in this encounter Plan of Treatment Not on file documented as of this encounter Procedures Procedure Name Priority Date/Time Associated Diagnosis Comments LEVETIRACETAM LEVEL Routine 03/03/2019 10:39 AM 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 Comment: INTERPRETIVE INFORMATION: Keppra (Levetiracetam) Therapeutic Range: ??12-46 ug/mL ?Toxic: ??Not well Established Pharmacokinetics of levetiracetam are affected by renal function. Adverse effects may include somnolence, weakness, headache and vomiting. This levetiracetam (Keppra) immunoassay uses the [employer] reagents, which has known cross-reactivity with the drug brivaracetam (Briviact) and may report inaccurate results. Patients transitioning from levetiracetam to brivaracetam or those who are using both medications should not monitor drug concentrations with the [employer] assay. These patients should be monitored using a validated chromatographic methodology that distinguishes between drugs to determine drug concentrations. Performed by [facility], [address] [place] [address] [email or web address], Aurelio Menjivar MD, Lab. Director Blood specimen (specimen) 03/03/2019 10:39 AM STERILIZER OPERATOR 03/03/2019 11:16 AM STERILIZER OPERATOR Narrative Resulting Agency Comment RCR us Shawn Berkowitz MD LAB BLOOD ORDERABLES Final Result [facility] [address] [place] [address], [facility] [phone] * Lipid panel (03/03/2019 10:39 AM STERILIZER OPERATOR) Pathologist [facility] Triglycerides 52 0 - 149 mg/dL [facility] Comment: National Lipid Association/NCEP Guidelines: ?? Normal ?< 150 mg/dL ?? Borderline high ?? 150-199 mg/dL ?? High ?200-499 mg/dL ?? Very High ? >=500 mg/dL Cholesterol 74 0 - 199 mg/dL [facility] Comment: National Lipid Association/NCEP Guidelines: Desirable ? < 200 mg/dL Borderline high: ??200-239 mg/dL High Risk: ?>=240 mg/dL HDL Cholesterol 38 mg/dL [facility] Comment: Reference Ranges: ? Males: >=40 mg/dL ? Females: >=50 mg/dL LDL Cholesterol, Calc 26 0 - 129 mg/dL [facility] Comment: National Lipid Association/NCEP Guidelines: ??Optimal ? < 100 mg/dL ??Near Optimal ?100-129 mg/dL ??Borderline high 130-159 mg/dL ??High ?>=160 mg/dL Cholesterol/HDL Ratio 1.9 [facility] Comment: Optimal ??< 3.5:1 High ? > 5:1 Blood specimen (specimen) 03/03/2019 10:39 AM STERILIZER OPERATOR 03/03/2019 11:16 AM STERILIZER OPERATOR Narrative Resulting Agency Comment RCR us Shawn Berkowitz MD LAB BLOOD ORDERABLES Final Result [facility] [address] [place] [address], [facility] [phone] * (ABNORMAL) Comprehensive metabolic panel (03/03/2019 10:39 AM STERILIZER OPERATOR) Sodium 138 135 - 145 mmol/L [facility] Potassium 3.6 3.3 - 5.1 mmol/L [facility] Chloride 103 96 - 108 mmol/L [facility] Carbon Dioxide 25 22 - 32 mmol/L [facility] Anion Gap 10 7 - 16 [facility] Glucose 128(H) 70 - 100 mg/dL [facility] BUN 17 8 - 25 mg/dL [facility] Creatinine 0.9 0.5 - 1.3 mg/dL [facility] Comment: NOTE: Estimated GFR (Cockroft-Gault) will NOT be calculated unless patient Height and Weight were entered. Also, Kidney Disease Stage (GFR) and Estimated GFR (Cockroft-Gault) will NOT be calculated if Creatinine result is <0.2. Kidney Disease Stage 90 mL/MIN [facility] Comment: NOTE; ??The GFR is an estimated value using the creatinine, sex, age, and race of the patient. THE Estimated Kidney Disease GFR is validated for AGES 18-70 YEARS STAGE ?mL/Min ?DESCRIPTION ??1 ?90 mL/min or more ?Normal or elevated GFR ??2 ? 60-89 mL/min ?Mildly decreased GFR ??3 ? 30-59 mL/min ?Moderately decreased GFR ??4 ? 15-29 mL/min ?Severely decreased GFR ??5 ? <15 mL/min ? Kidney failure or on dialysis Calcium 8.6 8.6 - 10.3 mg/dL [facility] Total Protein 7.8 6.4 - 8.3 g/dL [facility] Albumin 3.9 3.5 - 5.0 g/dL [facility] Globulin 3.9(H) 2.3 - 3.5 gm/dL [facility] Albumin/Globulin Ratio 1.0(L) 1.1 - 1.8 [facility] Total Bilirubin 0.3 0.0 - 1.2 mg/dL [facility] AST 14 0 - 40 U/L [facility] ALT 13 0 - 41 U/L [facility] Alkaline Phosphatase 127 40 - 129 U/L [facility] Blood specimen (specimen) 03/03/2019 10:39 AM STERILIZER OPERATOR 03/03/2019 11:16 AM STERILIZER OPERATOR Narrative Resulting Agency Comment RCR Shawn Berkowitz MD LAB BLOOD ORDERABLES Final Result [address] [address], [facility] [phone] * DEXA SCAN (12/22/2017) DEXA Scan Abnormal Comment:abnormality secondar y to recent fracture in the humerus Historical Provider HEALTH MAINTENANCE Final Result * COLONOSCOPY (07/25/2017) Colonoscopy Normal Comment:June 2017 showed di verticulosis Historical Provider HEALTH MAINTENANCE Final Result documented in this encounter Visit Diagnoses Diagnosis Hemiparesis as late effect of cerebrovascular accident (CVA) (CMS/HCC) (HCC)- Primary Major depressive disorder, remission status unspecified, unspecified whether recurrent Essential (primary) hypertension Unspecified essential hypertension Pure hypercholesterolemia Seizure (HCC) Other convulsions Benign prostatic hyperplasia without lower urinary tract symptoms Occlusion of left carotid artery Occlusion and stenosis of carotid artery without mention of cerebral infarction Dorsalgia Pain in thoracic spine documented in this encounter Discontinued Medications Medication Sig Discontinue Reason Start Date End Da te amitriptyline (ELAVIL) 75 mg tablet TAKE 1 TABLET BY MOUTH EVERY DAY 10/26/2018 11/25/2018 documented as of this encounter Additional Health Concerns 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 difficile Comment:Germ watcher auto flagging 01/15/2014 01/15/2014 documented as of this encounter Care Teams Outsole Caser Relationship Specialty Start Date End Date Shawn Berkowitz MD [address] [facility] [place] [address] PCP - General Internal Medicine 08/11/18 documented as of this encounter
--- OUTSIDE RECORDS SUMMARY | 2024-04-03 17:33 | XMS_ITS | Encounter Summary ---
Author Organization [facility] Healthcare Address [address] [place] [address] Care Team Providers Care Concrete Block Layer Name Role Phone Shawn Berkowitz MD Primary Care Provider [phone] Encounter Details Date Type Department Care Team (Late st Contact Info) Description 05/29/2020 1:15 PM CHEMICAL ENGINEERING TECHNICIAN - 05/29/2020 5:30 PM CHEMICAL ENGINEERING TECHNICIAN Emergency [address] [address] Juan Bradley MD [address] [place] [id number] Unknown, Notinfile Discharge Disposition: Discharge to home or self care Social History Tobacco Use Types Packs/Day Years [...] on file Legal Sex Male 6:59 AM CHEMICAL ENGINEERING TECHNICIAN Gender Identity Not on file Sexual Orientation Not on file documented as of this encounter Last Filed Vital Signs Vital Sign Reading Time Taken Comments Blood Pressure 106/82 05/29/2020 1:26 PM CHEMICAL ENGINEERING TECHNICIAN Pulse 93 05/29/2020 1:26 PM CHEMICAL ENGINEERING TECHNICIAN Temperature 36.6 ??C (97.8 ??F) 05/29/2020 1:26 PM CS T Respiratory Rate - - Oxygen Saturation 95% 05/29/2020 1:26 PM CHEMICAL ENGINEERING TECHNICIAN Inhaled Oxygen Concentration - - Weight 77 kg (169 lb 12.1 oz) 05/29/2020 1:26 PM CHEMICAL ENGINEERING TECHNICIAN Height - - Body Mass Index 24.36 01/24/2020 11:07 AM CDT documented in this encounter Medications at Time of Discharge amLODIPine (NORVASC) 10 mg tablet TAKE 1 TABLET BY MOUTH EVERY DAY 90 tablet 1 03/07/2020 aspirin 325 mg tablet Take 325 mg by mouth daily atorvastatin (LIPITOR) 40 mg tablet TAKE 1 TABLET BY MOUTH EVERY DAY 90 tablet 04/18/2020 budesonide-formo teroL (SYMBICORT) 80-4.5 mcg/actuation inhaler Inhale 2 puffs 2 (two) times a day Rinse mouth with water after use. Do not swallow. 1 Inhaler 3 01/24/2020 diclofenac sodium (VOLTAREN) 1 % gel Apply 2 g topically 3 (three) times a day famotidine (PEPCID) 40 mg tablet TAKE 1 TABLET BY MOUTH EVERY DAY 30 tablet 3 11/09/2019 fluticasone propionate (FLONASE) 50 mcg/actuation nasal spray PLACE 1 SPRAY INTO EACH NOSTRIL EVERY DAY 16 mL 3 01/18/2020 gabapentin (NEURONTIN) 800 mg tablet TAKE 1 TABLET BY MOUTH 4 TIMES A DAY 120 tablet 05/11/2020 levETIRAcetam (KEPPRA) 500 mg tablet TAKE 1 TABLET BY MOUTH EVERY 12 HOURS 180 tablet 1 03/07/2020 montelukast (SINGULAIR) 10 mg tablet TAKE 1 TABLET BY MOUTH EVERY DAY 90 tablet 1 01/18/2020 tamsulosin (FLOMAX) 0.4 mg extended release capsule Take 2 cap at night 180 capsule 2 01/24/2020 traMADoL (ULTRAM) 50 mg tablet Take 50 mg by mouth 4 (four) times a day documented as of this encounter Discharge Disposition Disposition Code Departure Means Destination Discharge to home or self care documented in this encounter Plan of Treatment Not on file documented as of this encounter Procedures Procedure Name Priority Date/Time Associated Diagnosis Comments URINALYSIS, COMPLETE W/REFLEX TO CULTURE Routine 05/29/2020 2:16 PM CHEMICAL ENGINEERING TECHNICIAN URINALYSIS AND REFLEX TO MICROSCOPIC AND CULTURE Routine 05/29/2020 2:16 PM CHEMICAL ENGINEERING TECHNICIAN INFLUENZA A/B, RSV, AND COVID-19 PCR Routine 05/29/2020 2:00 PM CHEMICAL ENGINEERING TECHNICIAN CBC WITH AUTO DIFFERENTIAL Routine 05/29/2020 1:55 PM CHEMICAL ENGINEERING TECHNICIAN LIPASE Routine 05/29/2020 1:55 PM CHEMICAL ENGINEERING TECHNICIAN COMPREHENSIVE METABOLIC PANEL Routine 05/29/2020 1:55 PM CHEMICAL ENGINEERING TECHNICIAN XR CHEST 1 VIEW 05/29/2020 12:00 [address]ING TE[address] ABDOMEN PELVIS W CONTRAST 05/29/2020 12:00 AM CHEMICAL ENGINEERING TECHNICIAN documented in this encounter Results * (ABNORMAL) URINALYSIS, COMPLETE W/REFLEX TO CULTURE (05/29/2020 2:16 PM CHEMICAL ENGINEERING TECHNICIAN) Ur Collection Type STRAIGHT CATH [facility] Ur Culture Indicated? C S NOT INDICATED [facility] Urine Color LAKE YELLOW [facility] Urine Clarity Slightly-Sarah udy CLEAR [facility] Urine Glucose (UA) NORMAL NORMAL mg/dL [facility] Urine Bilirubin NEGATIVE NEGATIVE mg/dl [facility] Urine Ketones 5(A) NEGATIVE mg/dL [facility] Ur Specific [place] 1.028(H) 1.005 - 1.025 [facility] Urine Blood 0.03(A) NEGATIVE mg/dl [facility] Urine pH 6.0 5.0 - 8.0 [facility] Urine Protein 30(A) NEGATIVE mg/dL [facility] Urine Urobilinogen 4(A) NORMAL mg/dL [facility] Urine Nitrite NEGATIVE NEGATIVE [facility] Ur Leukocyte Esterase NEGATIVE NEGATIVE Ian/ul [facility] Ur Microscopic Review Indicated or Ordered [facility] Urine RBC 11-20 0 - 2 /HPF [facility] Urine WBC 0-5 0 - 2 /HPF [facility] Urine Mucus Present /LPF [facility] Ur Squamous Epith Cells 1-5 /HPF [facility] 05/29/2020 2:16 PM CHEMICAL ENGINEERING TECHNICIAN 05/29/2020 2:45 PM CHEMICAL ENGINEERING TECHNICIAN Narrative [facility] - 05/29/2020 2:56 PM CHEMICAL ENGINEERING TECHNICIAN Indication(s) for ordering ?? Pain-pelv/flank/suprapubc BW Straight catheter Resulting Agency Comment ER us Juan Bradley MD LAB URINE ORDERABLES F inal Result [facility] [address] [place] [address], [facility] [phone] * (ABNORMAL) Urinalysis reflex to microscopic and culture (05/29/2020 2:16 PM CHEMICAL ENGINEERING TECHNICIAN) Ur Collection Type STRAIGHT CATH [facility] Ur Culture Indicated? C S NOT INDICATED [facility] Urine Color LAKE YELLOW [facility] Urine Clarity Slightly-Sarah udy CLEAR [facility] Urine Glucose (UA) NORMAL NORMAL mg/dL [facility] Urine Bilirubin NEGATIVE NEGATIVE mg/dl [facility] Urine Ketones 5(A) NEGATIVE mg/dL [facility] Ur Specific [place] 1.028(H) 1.005 - 1.025 [facility] Urine Blood 0.03(A) NEGATIVE mg/dl [facility] Urine pH 6.0 5.0 - 8.0 [facility] Urine Protein 30(A) NEGATIVE mg/dL [facility] Urine Urobilinogen 4(A) NORMAL mg/dL [facility] Urine Nitrite NEGATIVE NEGATIVE [facility] Ur Leukocyte Esterase NEGATIVE NEGATIVE Ian/ul [facility] Ur Microscopic Review Indicated or Ordered [facility] Urine RBC 11-20 0 - 2 /HPF [facility] Urine WBC 0-5 0 - 2 /HPF [facility] Urine Mucus Present /LPF [facility] Ur Squamous Epith Cells 1-5 /HPF [facility] 05/29/2020 2:16 PM CHEMICAL ENGINEERING TECHNICIAN 05/29/2020 2:45 PM CHEMICAL ENGINEERING TECHNICIAN Narrative [facility] - 05/29/2020 2:56 PM CHEMICAL ENGINEERING TECHNICIAN Indication(s) for ordering ?? Pain-pelv/flank/suprapubc BW Straight catheter Resulting Agency Comment ER Juan Bradley MD LAB MICROBIOLOGY - GEN ERAL ORDERABLES Final Result [address] [phone] * Influenza A/B, RSV, and COVID-19 PCR (05/29/2020 2:00 PM CHEMICAL ENGINEERING TECHNICIAN) Influenza A RNA NEGATIVE NEGATIVE [facility] Influenza B RNA NEGATIVE NEGATIVE [facility] RSV RNA NEGATIVE NEGATIVE [facility] COVID-19 RNA NEGATIVE [facility] Comment: Testing was performed on the [employer] Xpert Xpress SARS-CoV-2 real-time RT-PCR platform under FDA Emergency Use Authorization. ??This test is validated only for appropriately collected nasopharyngeal swab specimens. ??A negative result does not preclude infection with COVID-19 and should not be used as the sole basis for treatment or other patient management decisions. 05/29/2020 2:00 PM CHEMICAL ENGINEERING TECHNICIAN 05/29/2020 2:33 PM CHEMICAL ENGINEERING TECHNICIAN Narrative [facility] - 05/29/2020 3:17 PM CHEMICAL ENGINEERING TECHNICIAN [id number] Yes No No No No Unsure-Alt Mental Status Likely to be admitted Resulting Agency Comment ER Juan Bradley MD LAB MICROBIOLOGY - GEN ERAL ORDERABLES Final Result [address] [phone] * Lipase (05/29/2020 1:55 PM CHEMICAL ENGINEERING TECHNICIAN) Lipase 16 13 - 60 U/L [facility] 05/29/2020 1:55 PM CHEMICAL ENGINEERING TECHNICIAN 05/29/2020 1:58 PM CHEMICAL ENGINEERING TECHNICIAN Narrative Resulting Agency Comment ER us Juan Bradley MD LAB BLOOD ORDERABLES F inal Result [facility] [address] [place], [place] [id number] [place] [address] * (ABNORMAL) Comprehensive metabolic panel (05/29/2020 1:55 PM CHEMICAL ENGINEERING TECHNICIAN) [facility] Sodium 143 135 - 145 mmol/L [facility] Potassium 3.3 3.3 - 5.1 mmol/L [facility] Chloride 105 96 - 108 mmol/L [facility] Carbon Dioxide 28 22 - 32 mmol/L [facility] Anion Gap 10 7 - 16 [facility] Glucose 102(H) 70 - 100 mg/dL [facility] BUN 17 8 - 25 mg/dL [facility] Creatinine 0.9 0.5 - 1.3 mg/dL [facility] Comment: NOTE: Estimated GFR (Cockroft-Gault) will NOT be calculated unless patient Height and Weight were entered. Also, Kidney Disease Stage (GFR) and Estimated GFR (Cockroft-Gault) will NOT be calculated if Creatinine result is <0.2. Kidney Disease Stage 90 mL/MIN [facility] Comment: NOTE; ??The GFR is an estimated [...] ? Kidney failure or on dialysis Calcium 9.6 8.6 - 10.3 mg/dL [facility] Total Protein 8.4(H) 6.4 - 8.3 g/dL [facility] Albumin 4.3 3.5 - 5.0 g/dL [facility] Globulin 4.1(H) 2.3 - 3.5 gm/dL [facility] Albumin/Globulin Ratio 1.0(L) 1.1 - 1.8 [facility] Total Bilirubin 0.6 0.0 - 1.2 mg/dL [facility] AST 15 0 - 40 U/L [facility] ALT 9 0 - 41 U/L [facility] Alkaline Phosphatase 80 40 - 129 U/L [facility] 05/29/2020 1:55 PM CHEMICAL ENGINEERING TECHNICIAN 05/29/2020 1:58 PM CHEMICAL ENGINEERING TECHNICIAN Narrative Resulting Agency Comment ER us Juan Bradley MD LAB BLOOD ORDERABLES F inal Result [facility] [address] [phone] * (ABNORMAL) CBC with auto differential (05/29/2020 1:55 PM CHEMICAL ENGINEERING TECHNICIAN) WBC 10.8(H) 3.8 - 9.9 X10 3/ul [facility] RBC 3.62(L) 4.30 - 5.80 x10 6/ul [facility] Hemoglobin 12.3(L) 13.0 - 17.5 g/dL [facility] Hct 36.1(L) 38.9 - 50.3 % [facility] MCV 99.7(H) 81.3 - 96.4 fl [facility] MCH 34.0(H) 27.1 - 33.3 pg [facility] MCHC 34.1 32.3 - 35.7 g/dl [facility] RDW 12.4 11.1 - 14.9 % [facility] Plt Count 383 150 - 400 x10 3/ul [facility] MPV 9.3 9.1 - 12.3 fl [facility] Neut % 85.0 % [facility] Immature Gran % 0.2 % [facility] Lymph % 7.3 % [facility] [place] % 6.5 % [facility] Eos % 0.4 % [facility] AUTO BASO % 0.6 % [facility] NEUTROPHIL ABS # 9.2(H) 1.7 - 6.5 x10 3/ul [facility] Immature Gran # 0.0 0.0 - 0.1 x10 3/ul [facility] Absolute Lymphs (auto) 0.8 0.8 - 3.3 x10 3/ul [facility] Absolute Monos (auto) 0.7 0.2 - 0.8 x10 3/ul [facility] Absolute Eos (auto) 0.0 0.0 - 0.5 x10 3/ul [facility] BASOPHIL ABS # 0.1 0.0 - 0.1 x10 3/ul [facility] Nucleat RBC Rel Count 0.0 #/100WBC [facility] NRBC abs 0.00 0.00 - 0.01 x10 3/ul [facility] Absolute Neutrophils 9,200(H) 200 - 8,000 /ul [facility] 05/29/2020 1:55 PM CHEMICAL ENGINEERING TECHNICIAN 05/29/2020 1:58 PM CHEMICAL ENGINEERING TECHNICIAN Narrative Resulting Agency Comment ER us Juan Bradley MD LAB BLOOD ORDERABLES F inal Result [facility] [address] [place] [address], [facility] [phone] * CT Abdomen Pelvis W Contrast (05/29/2020 12:00 AM CHEMICAL ENGINEERING TECHNICIAN) Anatomical Region Laterality Modality Body N/A Computed Tomogra phy 05/29/2020 3:00 PM CHEMICAL ENGINEERING TECHNICIAN Narrative 05/29/2020 3:06 PM CHEMICAL ENGINEERING TECHNICIAN Patient Name: CURLY ANGELO ?Ordering Dr: Juan Bradley MD ?? D.O.B: 1955 ? Exam Date: 05/29/20 ?? 0000 ?? Age: 64 ?Sex: Male ? MR#: [id number] ?? Loc: ? RADIOLOGY REPORT ?? Order #[id number] ?? CT Scan ? CT Abd/Pelvis W IV Contrast ? Signed ?? EXAM DESCRIPTION: ?? CT Abd/Pelvis W IV Contrast ? REASON FOR STUDY: ?? Acute right lower quadrant pain with nausea and vomiting ? TECHNIQUE: ??CT scan of the abdomen and pelvis performed with intravenous and ? oral contrast using helical scanning technique with dynamic intravenous ?? contrast injection. Reconstructed coronal and sagittal MPR images reviewed. ?? All images stored on PACS. ? Automated exposure control was used as a dose optimization technique for this ?? examination. ? CONTRAST TYPE/DOSE: ?? PATIENT RECIEVED 100CC OPTIRAY 350 INJECTED INTO RAC ? COMPARISON: ?? None ? FINDINGS: ? LOWER CHEST: ??Basilar atelectasis noted. ? LIVER: ??Normal size. ??No identified cystic or solid masses. ? GALLBLADDER: ??Unremarkable gallbladder ? BILE DUCTS: ??No intrahepatic or extrahepatic ductal dilatation. ? SPLEEN: ??Normal size. ??No focal lesions. ? PANCREAS: ??No identified cystic or solid masses. No significant ?? calcifications. No adjacent inflammation or peripancreatic fluid collections. ?? Pancreatic duct not dilated. ? ADRENALS: ??Normal. ? KIDNEYS/URINARY TRACT: ??Cysts are noted in the kidney which are statistically ?? benign. No visualized stone or hydronephrosis. ??Mild bladder wall thickening ? GI: ??There is mild colitis of the sigmoid colon and descending colon. ? PERITONEUM: ??No ascites or free air. ? RETROPERITONEUM: ??No mass or adenopathy. ? REPRODUCTIVE: ??No significant abnormality. ? VASCULATURE: ??No abdominal aortic aneurysm. ? MUSCULOSKELETAL: ??Fusion changes are present in the lumbar spine ? OTHER: ??No other abnormality. ? IMPRESSION: ?? There is evidence of colitis of the sigmoid colon and descending ?? colon which may be infectious or inflammatory nature ? Mild bladder wall thickening. ? Consider nonemergent colonoscopy after treatment ? No cholecystitis ? Left basilar atelectasis. ? Normal appendix. ? THIS IS AN ELECTRONICALLY VERIFIED FINAL REPORT ?? 05/29/2020 3:06 PM - Electronically signed by Diego Hagen M.D. ?? Diego Hagen M.D. ? [place] ?? D: ??05/29/2020 3:06 PM ?? T: ? Report ID: [id number] ?? Reading Location: ??[id number] ? REPORT ELECTRONICALLY SIGNED IN OTHER VENDOR SYSTEM ?? Resulting Agency Comment E Procedure Note Diego Hagen MD - 05/29/2020 Patient Name: CURLY ANGELO Dr: Juan Bradley MD, D.O.B: 1955 Exam Date: 05/29/20 0000 Age: 64 Sex: Male MR#: [id number] Loc: [facility]#: [id number] RADIOLOGY REPORT Order #[id number] CT Scan CT Abd/Pelvis W IV Contrast Signed EXAM DESCRIPTION: CT Abd/Pelvis W IV Contrast REASON FOR STUDY: Acute right lower quadrant pain with nausea andvomiting TECHNIQUE: CT scan of the abdomen and pelvis performed with intravenousand oral contrast using helical scanning technique with dynamic intravenous contrast injection. Reconstructed coronal and sagittal MPR imagesreviewed. All images stored on PACS. Automated exposure control was used as a dose optimization technique forthis examination. CONTRAST TYPE/DOSE: PATIENT RECIEVED 100CC OPTIRAY 350 INJECTED INTORAC COMPARISON: None FINDINGS: LOWER CHEST: Basilar atelectasis noted. LIVER: Normal size. No identified cystic or solid masses. GALLBLADDER: Unremarkable gallbladder BILE DUCTS: No intrahepatic or extrahepatic ductal dilatation. SPLEEN: Normal size. No focal lesions. PANCREAS: No identified cystic or solid masses. No significant calcifications. No adjacent inflammation or peripancreatic fluidcollections. Pancreatic duct not dilated. ADRENALS: Normal. KIDNEYS/URINARY TRACT: Cysts are noted in the kidney which arestatistically benign. No visualized stone or hydronephrosis. Mild bladder wallthickening GI: There is mild colitis of the sigmoid colon and descending colon. PERITONEUM: No ascites or free air. RETROPERITONEUM: No mass or adenopathy. REPRODUCTIVE: No significant abnormality. VASCULATURE: No abdominal aortic aneurysm. MUSCULOSKELETAL: Fusion changes are present in the lumbar spine OTHER: No other abnormality. IMPRESSION: There is evidence of colitis of the sigmoid colon anddescending colon which may be infectious or inflammatory nature Mild bladder wall thickening. Consider nonemergent colonoscopy after treatment No cholecystitis Left basilar atelectasis. Normal appendix. THIS IS AN ELECTRONICALLY VERIFIED FINAL REPORT 05/29/2020 3:06 PM - Electronically signed by Diego Hagen M.D. [place] T: Report ID: [id number] Reading Location: [place] [address] REPORT ELECTRONICALLY SIGNED IN OTHER VENDOR SYSTEM us Juan Bradley MD IMG CT PROCEDURES Myrna l Result * XR Chest 1 View (05/29/2020 12:00 AM CHEMICAL ENGINEERING TECHNICIAN) Anatomical Region Laterality Modality Body, Chest N/A Radiographic Tawanna ging 05/29/2020 2:25 PM CHEMICAL ENGINEERING TECHNICIAN Narrative 05/29/2020 2:26 PM CHEMICAL ENGINEERING TECHNICIAN Patient Name: CURLY ANGELO ?Ordering Dr: Juan Bradley MD ?? D.O.B: 1955 ? Exam Date: // ?? 0000 ?? Age: 64 ?Sex: Male ? MR#: [id number] ?? Loc: ? RADIOLOGY REPORT ?? Order #[id number] ?? Radiology ? Chest 1 View Portable ? Signed ?? EXAM DESCRIPTION: ?? Chest 1 View Portable ? REASON FOR STUDY: ?? ONSET YESTERDAY OF NAUSEA AND VOMITING PER BENDER HAND, PT ?? 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 NEARLY CHRONIC PAIN TO HIS RT SIDE ? TECHNIQUE: ?? Frontal radiographic view of the chest acquired. ? COMPARISON: ?? 01/25/2016 ? FINDINGS: ? LUNGS/PLEURA: ??No focal consolidation or pneumothorax. No pleural effusion. ? HEART/MEDIASTINUM: ??Heart size is normal. Normal mediastinal and hilar ?? contours. ? HARDWARE/LINES/TUBES: ??None. ? BONES: ??No acute findings. ? OTHER: ??No other significant finding. ? IMPRESSION: ?? No acute cardiopulmonary disease. ? THIS IS AN ELECTRONICALLY VERIFIED FINAL REPORT ?? 05/29/2020 2:26 PM - Electronically signed by Rudolph Boone ?? Rudolph Boone ? KN ?? D: ??05/29/2020 2:26 PM ?? T: ? Report ID: [id number] ?? Reading Location: ??[id number] ? REPORT ELECTRONICALLY SIGNED IN OTHER VENDOR SYSTEM ?? 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 COMPARISON: 01/25/2016 FINDINGS: LUNGS/PLEURA: No focal consolidation or pneumothorax. No pleuraleffusion. HEART/MEDIASTINUM: Heart size is normal. Normal mediastinal and hilar contours. HARDWARE/LINES/TUBES: None. BONES: No acute findings. OTHER: No other significant finding. IMPRESSION: No acute cardiopulmonary disease. 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
--- OUTSIDE RECORDS SUMMARY | 2024-04-03 17:33 | XMS_ITS | Encounter Summary ---
Author Organization [facility] Medical Group Address [address] [place] [address] Care Team Providers Care Spinneret Person Name Role Phone Shawn Berkowitz MD Primary Care Provider [phone] Encounter Details Date Type Department Care Team (Late st Contact Info) Description 10/18/2019 Telephone [facility] Accountable Care Organization [address] [place] [address] Linda Ann, RN [address] [facility] [address] [address] Social History Tobacco Use Types Packs/Day Years [...] on file Legal Sex Male 6:59 AM PREFITTER Gender Identity Not on file Sexual Orientation Not on file documented as of this encounter Miscellaneous Notes * Telephone Encounter - Linda Ann RN - 10/18/2019 3:02 PM CDT Essence- EE 10/20/2019- Linda Ann RN, BSN [facility] Exhibitions Curator for High Risk [phone] documented in this encounter Plan of Treatment Not on file documented as of this encounter Visit Diagnoses Not on filedocumented in this encounter Additional Health Concerns 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
--- OUTSIDE RECORDS SUMMARY | 2024-04-03 17:33 | XMS_ITS | Encounter Summary ---
Author Organization [facility] Medical Group Address [address] [place] [address] Care Team Providers Care Wastewater Process Engineer Name Role Phone Shawn Berkowitz MD Primary Care Provider [phone] Reason for Visit * Reason Comments Follow-up 3 month f/u htn,CVA. labs done today Encounter Details Date Type Department Care Team (Late st Contact Info) Description 03/03/2019 10:45 AM SPORTS MARKETING INTER[employer] Office Visit [facility] Medical [facility] Internal Medicine [address] [facility] [facility] [address] [place] [address] Shawn Berkowitz MD [address] [place] [address] [address] [place] [address] Hemiparesis as late effect of cerebrovascular accident (CVA) (CMS/HCC) (Primary Dx); Major depressive disorder, remission status unspecified, unspecified whether recurrent; Dorsalgia; Pure hypercholesterolemia; Seizure (CMS/HCC); Benign prostatic hyperplasia without lower urinary tract symptoms; Prostate cancer screening; Need for vaccination; Essential (primary) hypertension; Gastroesophageal reflux disease without esophagitis Social History Tobacco Use Types Packs/Day Years [...] on file Legal Sex Male 6:59 AM [employer]TS [employer] Gender Identity Not on file Sexual Orientation Not on file documented as of this encounter Last Filed Vital Signs Vital Sign Reading Time Taken Comments Blood Pressure 106/60 03/03/2019 11:14 AM [employer] Pulse 53 03/03/2019 11:14 AM [employer] Temperature 36.1 ??C (97 ??F) 03/03/2019 11:14 AM [employer] Respiratory Rate 18 03/03/2019 11:14 AM [employer] Oxygen Saturation 97% 03/03/2019 11:14 AM [employer] Inhaled Oxygen Concentration - - Weight 76.2 kg (168 lb) 03/03/2019 11:14 AM [employer] Height - - Body Mass Index 24.11 11/25/2018 10:16 AM CDT documented in this encounter Ordered Prescriptions Prescription Sig Dispense Quantity Refills Last Filled Start Date End Date famotidine (PEPCID) 40 mg tablet Take 1 tablet (40 mg total) by mouth daily 30 tablet 3 03/03/2019 08/09/2019 documented in this encounter Progress Notes * Shawn Berkowitz MD - 03/03/2019 10:45 AM CST Images from the original note were not included. Subjective/Objective Patient ID: Curly Cash is a 63 y.o. male. Chief Complaint Chief Complaint Patient presents with ??? Follow-up 3 month f/u htn,CVA.labs done today HPI: The patient came today accompanied by his . The patient has aphasia. The patient spends most of the time on wheelchair. The patient uses the cane on occasional basis. Blood work is pending. Current Outpatient Medications Medication Sig Dispense Refill ??? amLODIPine (NORVASC) 10 mg tablet TAKE 1 TABLET BY MOUTH EVERY DAY 30 tablet 1 ??? aspirin 325 mg tablet Take 325 mg by mouth daily ??? atorvastatin (LIPITOR) 40 mg tablet TAKE 1 TABLET BY MOUTH EVERY DAY 30 tablet 3 ??? FLUoxetine (PROzac) 40 mg capsule Take 1 capsule (40 mg total) by mouth daily 30 capsule 5 ??? gabapentin (NEURONTIN) 800 mg tablet TAKE [...] MOUTH EVERY DAY 30 capsule 1 ??? famotidine (PEPCID) 40 mg tablet Take 1 tablet (40 mg total) by mouth daily 30 tablet 3 No current facility-administered medications for this visit. [...] file Gets together: Not on file Attends anglican service: Not on file Active member of [...] hallucinations. The patient is not nervous/anxious. BP 106/60 Pulse 53 Temp 36.1 ??C (97 ??F) Resp 18 Wt 76.2 kg (168 lb) SpO2 97% BMI 24.11 kg/m?? Body mass index is 24.11 kg/m??. Physical Exam Constitutional: Patient is oriented to person, place, and time. Patient appears well-developed and well-nourished. HENT: Head: Normocephalic and atraumatic. Right Ear: [...] nerves are intact. Reflexes are +2 all over. Power is 2/5 on the right side and 5/5 on the left side Skin: Skin is warm. No rash noted. No pallor. Psychiatric: Patient has a normal mood and affect. Procedure Note: No notes on file Diagnoses and all orders for this visit: Hemiparesis as late effect of cerebrovascular accident (CVA) (CMS/HCC) (Primary) Assessment & Plan: Left-sided weakness secondary to all CVA with no change. He is maintained on aspirin daily. Major depressive disorder, remission status unspecified, unspecified whether recurrent Assessment & Plan: Controlled on Prozac Dorsalgia Assessment & Plan: The patient with history of chronic back pain and he was advised to follow up for that at the [facility] Pure hypercholesterolemia Assessment & Plan: Controlled on current medications. Continue low-fat diet. Will continue to monitor . Seizure (CMS/HCC) Assessment & Plan: Controlled on Keppra and will obtained Keppra level Benign prostatic hyperplasia without lower urinary tract symptoms Assessment & Plan: Asymptomatic Prostate cancer screening - PSA screen; Future Need for vaccination - Flu Vaccine Quad PF 6m+ IM - Fluarix / FluLaval / Afluria Essential (primary) hypertension Assessment & Plan: Continue current medications. Discussed low-salt diet. Discussed exercise on regular basis. Will continue to monitor Gastroesophageal reflux disease without esophagitis Assessment & Plan: Will stop Zantac and start him on Pepcid 40 mg daily Other orders - famotidine (PEPCID) 40 mg tablet; Take 1 tablet (40 mg total) by mouth daily [employer] documented in this encounter Miscellaneous Notes * Assessment & Plan Note - Shawn Berkowitz MD - 03/03/2019 12:11 PM [employer] Associated Problem(s): Gastroesophageal reflux disease without esophagitis Will stop Zantac and start him on Pepcid 40 mg daily [employer] * Assessment & Plan Note - Shawn Berkowitz MD - 03/03/2019 12:11 PM [employer] Associated Problem(s): Benign prostatic hyperplasia without lower urinary tract symptoms Asymptomatic [employer] * Assessment & Plan Note - Shawn Berkowitz MD - 03/03/2019 12:10 PM [employer] Associated Problem(s): Seizure (HCC) Controlled on Keppra and will obtained Keppra level [employer] * Assessment & Plan Note - Shawn Berkowitz MD - 03/03/2019 12:10 PM [employer] Associated Problem(s): HLD (hyperlipidemia) (Deleted) Controlled on current medications. Continue low-fat diet. Will continue to monitor . [employer] * Assessment & Plan Note - Shawn Berkowitz MD - 03/03/2019 12:10 PM [employer] Associated Problem(s): Essential (primary) hypertension Continue current medications. Discussed low-salt diet. Discussed exercise on regular basis. Will continue to monitor [employer] * Assessment & Plan Note - Shawn Berkowitz MD - 03/03/2019 12:10 PM [employer]TS [employer] Associated Problem(s): Dorsalgia The patient with history of chronic back pain and he was advised to follow up for that at the [facility] [employer] * Assessment & Plan Note - Shawn Berkowitz MD - 03/03/2019 12:10 PM [employer] Associated Problem(s): Recurrent major depressive disorder, in full remission (CMS/HCC) (HCC) (Deleted) Controlled on Prozac [employer] * Assessment & Plan Note - Shawn Berkowitz MD - 03/03/2019 12:09 PM [employer] Associated Problem(s): Hemiparesis as late effect of cerebrovascular accident (CVA) (CMS/HCC) (HCC) Left-sided weakness secondary to all CVA with no change. He is maintained on aspirin daily. [employer] documented in this encounter Plan of Treatment Scheduled Orders Name Type Priority Associated Diagnoses Orde r Schedule PSA screen Lab Routine Prostate cancer screening Expected: 03/03/2019, Expires: 03/03/2020 documented as of this encounter Visit Diagnoses Diagnosis Hemiparesis as late effect of cerebrovascular accident (CVA) (CMS/HCC) (HCC)- Primary Major depressive disorder, remission status unspecified, unspecified whether recurrent Dorsalgia Pain in thoracic spine Pure hypercholesterolemia Seizure (HCC) Other convulsions Benign prostatic hyperplasia without lower urinary tract symptoms Prostate cancer screening Special screening for malignant neoplasm of prostate Need for vaccination Need for prophylactic vaccination and inoculation against unspecified single disease Essential (primary) hypertension Unspecified essential hypertension Gastroesophageal reflux disease without esophagitis Esophageal reflux documented in this encounter Discontinued Medications Medication Sig Discontinue Reason Start Date End Da te raNITIdine (ZANTAC) 300 mg tablet TAKE 1 TABLET BY MOUTH TWICE A DAY 03/02/2019 03/03/2019 documented as of this encounter Orders Immunization/Injection Count Last Ordered Date First Ordered Date FLU VACCINE QUAD PF 6M+ IM - FLUARIX / FLULAVAL / AFLURIA 1 03/03/2019 documented in this encounter Additional Health Concerns 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 difficile Comment:Germ watcher auto flagging 01/15/2014 01/15/2014 documented as of this encounter Care Teams Wastewater Process Engineer Relationship Specialty Start Date End Date Shawn Berkowitz MD [address] [facility] [address] [place] [place] [id number] PCP - General Internal Medicine 08/11/18 documented as of this encounter
--- OUTSIDE RECORDS SUMMARY | 2024-04-03 17:33 | XMS_ITS | Referral Summary ---
Author Organization [facility] Address [address] [place] [address] Care Team Providers Care Straight Line Edger Name Role Phone Shawn Berkowitz MD Primary Care Provider [phone] Allergies Active Allergy Reactions Criticality Noted Date [...] Asymptomatic Assessment & Plan (03/03/2019 12:11 PM KEG VARNISHER): Will stop Zantac and start him on [...] Flomax Assessment & Plan (03/03/2019 12:11 PM KEG VARNISHER): Asymptomatic Assessment & Plan (11/25/2018 12:04 PM CDT): Controlled on Flomax Assessment & Plan (08/25/2018 3:53 PM CDT): Controlled on Flomax Onychomycosis 08/25/2018 Assessment & Plan (08/25/2018 3:54 PM CDT): Will make him a referral to see a burnt lime drawer for further evaluation History of CVA with [...] level Assessment & Plan (03/03/2019 12:10 PM KEG VARNISHER): Controlled on Keppra and will obtained Keppra [...] monitor Assessment & Plan (03/03/2019 12:10 PM KEG VARNISHER): Continue current medications. Discussed low-salt diet. 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 Assessment & Plan (11/25/2018 12:03 PM CDT): The patient is maintained on aspirin daily Cerebrovascular accident (CV A) involving left cerebral hemisphere 02/02/2015 Hemiparesis as late effect o f cerebrovascular accident (CVA) ([facility]) 12/10/2013 Assessment & Plan (01/24/2020 12:05 [...] daily Assessment & Plan (03/03/2019 12:09 PM KEG VARNISHER): Left-sided weakness secondary to all CVA with [...] 01/04/2014 Pneumococcal Polysaccharide PPV23 10/20/2019 Tdap 04/26/2004 Social History Tobacco Use Types Packs/Day Years [...] on file Legal Sex Male 6:59 AM KEG VARNISHER Gender Identity Not on file Sexual Orientation Not on file Last Filed Vital Signs Vital Sign Reading Time Taken Comments Blood Pressure 106/82 05/29/2020 1:26 PM KEG VARNISHER Pulse 93 05/29/2020 1:26 PM KEG VARNISHER Temperature 36.6 ??C (97.8 ??F) 05/29/2020 1:26 PM CS T Respiratory Rate 16 01/24/2020 11:07 AM CDT Oxygen Saturation 95% 05/29/2020 1:26 PM KEG VARNISHER Inhaled Oxygen Concentration - - Weight 77 kg (169 lb 12.1 oz) 05/29/2020 1:26 PM KEG VARNISHER Height 177.8 cm (5' 10 ) 01/24/2020 11:07 AM CDT Body Mass Index 24.36 01/24/2020 11:07 AM CDT Plan of Treatment Not on file Additional Health Concerns Infection Onset Date Last Indicated C. difficile Comment:Germ watcher auto flagging 01/15/2014 01/15/2014 Insurance HEALTHCARE Care Teams Straight Line Edger Relationship Specialty Start Date End Date Shawn Berkowitz MD [address] [facility] [address] [id number] PCP - General Internal Medicine 08/11/18
--- OUTSIDE RECORDS SUMMARY | 2024-04-03 17:33 | XMS_ITS | Encounter Summary ---
Author Organization [facility] Medical Group Address [address] [facility] [address] [facility] [address] [place] [address] Care Team Providers Care Food Service Worker Hospital Name Role Phone Shawn Berkowitz MD Primary Care Provider [phone] Encounter Details Date Type Department Care Team (Late st Contact Info) Description 12/10/2018 Telephone [facility] Internal Medicine [address] [facility] [address] [place] [address] [place] [address] [place] [address] [address] [place] [address] Social History Tobacco Use Types [...] on file 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 Gender Identity Not on file Sexual Orientation Not on file documented as of this encounter Miscellaneous Notes * Telephone Encounter - Nenita Mayer - 12/10/2018 10:17 AM CDT Insurance Auth: [id number] Valid 12/07/18 to 03/30/19 with 3 visits * Telephone Encounter - Nenita Mayer - 12/10/2018 10:05 AM CDT Patient needs a referral to see Dr Peng DX: toe nail fungus documented in this encounter Plan of Treatment Not on file documented as of this encounter Visit Diagnoses Not on filedocumented in this encounter Additional Health Concerns 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 difficile Comment:Germ watcher auto flagging 01/15/2014 01/15/2014 documented as of this encounter Care Teams Food Service Worker Hospital Relationship Specialty Start Date End Date Shawn Berkowitz MD [address] [place] [address] [place] [id number] PCP - General Internal Medicine 08/11/18 documented as of this encounter
--- OUTSIDE RECORDS SUMMARY | 2024-04-03 17:33 | XMS_ITS | Encounter Summary ---
Author Organization [facility] Address [address] [place] [address] Phone Care Team Providers Care Sequins Winder Name Role Phone Shawn Berkowitz MD Primary Care Provider [phone] Reason for Visit * Reason Onset Date Comments yazidism pain 10/26/2018 Encounter Details Date Type Department Care Team (Late st Contact Info) Description 10/26/[address] [facility] Neurosurgery [address] [facility] 6th [place] [address] [place] [address] Golden Chowdary MD [address] [place] [address] yazidism pain Social History Tobacco Use Types Packs/Day Years Used Date Smoking Tobacco: Former Cigarettes Q uit: 06/2018 Smokeless Tobacco: Never Alcohol Use Standard Drinks/Week Comments Never 0 (1 standard drink = 0.6 oz pur e alcohol) AUDIT-C Answer Date Recorded Frequency of Alcohol Consumption Never 08/25/2018 Average Number of Drinks Not on file 019 Frequency of Binge Drinking Not on file 07/30 Sex and Gender Information Value Date Recorded Sex Assigned at Not on file Legal 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 Berkowitz did a Doppler on the patient neck and the results are normal Patient was informed that speak with the PCP regarding the yazidism pain as well... * Telephone Encounter - Melissa Seo MA - 10/28/2018 9:36 AM CDT Called patient LMOM for the patient to call the office * Telephone Encounter - Kylie Ann NP - 10/27/2018 3:51 PM CDT lvm recommending patient to be evaluated by PMD for the yazidism pain - as the bone flap was placed nearly 5 years ago 01/11/14 and most likely not related to the yazidism pain. * Telephone Encounter - Melissa Seo MA - 10/26/2018 4:24 PM CDT Patient called the office and stated that she is aware that the patient last seen ID in 2014 reports that the patient is having some issues with the bone flap replace, states that the patient is currently having pain in the yazidism of head, patient states that the patient feel in pain management also a year ago Patient states that she is worried about the patient and the yazidism pain Patient stated that she will be taking him to get his eyes check documented in this encounter Plan of Treatment Not on file documented as of this encounter Visit Diagnoses Not on filedocumented in this encounter Additional Health Concerns 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 difficile Comment:Germ watcher auto flagging 01/15/2014 01/15/2014 documented as of this encounter Care Teams Sequins Winder Relationship Specialty Start Date End Date Shawn Berkowitz MD [facility] [place] [address] PCP - General Internal Medicine 08/11/18 documented as of this encounter
--- OUTSIDE RECORDS SUMMARY | 2024-04-03 17:33 | XMS_ITS | Encounter Summary ---
Author Organization [facility] Address [address] [place] [address] Care Team Providers Care Home Comfort Advisor Name Role Phone Shawn Berkowitz MD Primary Care Provider [phone] Reason for Visit * Reason Comments Medicare Wellness Just got Labs done t portia - CVA - Needs a new wheelchair Encounter Details Date Type Department Care Team (Late st Contact Info) Description 10/20/2019 3:30 PM CDT Office Visit [facility] Internal Medicine [address] [place] [address] Shawn Berkowitz MD [address] [place] [address] [address] [place], [place] [id number] Hemiparesis as late effect of cerebrovascular accident (CVA) (CMS/HCC) (Primary Dx); Recurrent major depressive disorder, remission status unspecified (CMS/HCC); Essential (primary) hypertension; Seizure (CMS/HCC); Benign prostatic hyperplasia without lower urinary tract symptoms; Dyslipidemia; Gastroesophageal reflux disease without esophagitis; BMI 22.0-22.9, adult; Need for vaccination; Smoking Social History Tobacco Use Types Packs/Day Years [...] file Legal 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 Gender Identity Not on file Sexual Orientation Not on file documented as of this encounter Last Filed Vital Signs Vital Sign Reading Time Taken Comments Blood Pressure 106/44 10/20/2019 3:48 PM CDT Pulse 66 10/20/2019 3:48 PM CDT Temperature 36.3 ??C (97.3 ??F) 10/20/2019 3:48 PM CD T Respiratory Rate 18 10/20/2019 3:48 PM CDT Oxygen Saturation 98% 10/20/2019 3:48 PM CDT Inhaled Oxygen Concentration - - Weight 71.3 kg (157 lb 3.2 oz) 10/20/2019 3:48 P M CDT Height 177.8 cm (5' 10 ) 10/20/2019 3:48 PM CDT Body Mass Index 22.56 10/20/2019 3:48 PM CDT documented in this encounter Progress Notes * Shawn Berkowitz MD - 10/20/2019 3:30 PM CDT MEDICARE ANNUAL WELLNESS VISIT Curly Cash HPI: Patient came for essence encounter. Blood work was done today. Patient has no new complaints. No chest pain or shortness breath. No nausea or vomiting. No abdominal pain. No urinary complaints. The patient had hemorrhagic stroke with right-sided weakness. The patient uses a wheelchair to helphim with daily activities. His current wheelchair is not working well. The patient is paralyzed on the right side and the use of wheelchair will improve his ability to participate in activities of daily living and this limitation will be resolved with the use of a wheelchair. The patient is able and willing to use the wheelchair and his caregiver is available to help him as well. The patient cannot use a cane or a walker. Medicare Health Risk Assessment Basic Information In general, would you say your health is: Fair Do you have an Advanced Directive (Living Will) and/or Durable Power of Press Room Supervisor?: No Would you like information regarding Advanced Directiv (Living Will) and/or Durable Power of Press Room Supervisor?: No Do you have trouble hearing the television or radio when other do not?: Yes Do you have to strain or struggle to hear/understand conversations?: Yes Have you experienced any of the following problems currently or recently? Eating: No Grooming: Yes(HX CVA ) Bathing: Yes Walking: Yes(HX CVA ) Using the toilet: No Memory problems: No Difficulty speaking: Yes(HX CVA ) Have you experienced any of the following problems currently or recently? Laundry and/or housekeeping: Yes Handling Money: No Shopping: No Food preparation: Yes Transportation: Yes Taking and/or getting your own medications: Yes - please explain Comments: (HX CVA , helps ) Past Medical and Surgical History: Past Medical History: Diagnosis Date ??? Depression ??? Hyperlipidemia ??? Hypertension ??? Stroke (CMS/HCC) Past Surgical History: Procedure Laterality Date ??? IR G TUBE PLACEMENT PERCUTANEOUS N/A 11/02/2013 ??? JOINT REPLACEMENT ??? SPINE SURGERY Family History: Family History Problem Relation Age of Onset ??? Heart disease Mother ??? Heart disease Father ??? Heart attack Father Social History: Social History Socioeconomic History ??? Marital status: [...] file Gets together: Not on file Attends christian service: Not on file Active member of [...] Social History Narrative ??? Not on file Diet: Low-fat Physical Activities: Very limited Allergies: Allergies Allergen Reactions ??? Codeine Itching Reaction: Itching, Current Medications: Outpatient Encounter Medications as of 10/20/2019 Medication Sig Dispense Refill ??? amLODIPine (NORVASC) 10 mg tablet TAKE 1 TABLET BY MOUTH EVERY DAY 30 tablet 0 ??? aspirin 325 mg tablet Take 325 mg by mouth daily ??? atorvastatin (LIPITOR) 40 mg tablet TAKE 1 TABLET BY MOUTH EVERY DAY 90 tablet 0 ??? famotidine (PEPCID) 40 mg tablet TAKE 1 TABLET BY MOUTH EVERY DAY 30 tablet 0 ??? FLUoxetine (PROzac) 40 mg capsule TAKE 1 CAPSULE BY MOUTH EVERY DAY 30 capsule 0 ??? fluticasone propionate (FLONASE) 50 mcg/actuation nasal spray Administer 1 spray into each nostril daily 1 Inhaler 3 ??? gabapentin (NEURONTIN) 800 mg tablet TAKE 1 TABLET BY MOUTH FOUR TIMES A DAY 120 tablet 0 ??? levETIRAcetam (KEPPRA) 500 mg tablet TAKE 1 TABLET BY MOUTH EVERY 12 HOURS 60 tablet 0 ??? tamsulosin (FLOMAX) 0.4 mg extended release capsule TAKE 1 CAPSULE BY MOUTH EVERY DAY 30 capsule 0 ??? traMADoL (ULTRAM) 50 mg tablet Take 50 mg by mouth 4 (four) times a day ??? [DISCONTINUED] metoprolol tartrate (LOPRESSOR) 25 mg immediate release tablet TAKE 1 TABLET BY MOUTH TWICE A DAY 60 tablet 0 No facility-administered encounter medications on file as of 10/20/2019. Depression Screen: PHQ Screening Over the last 2 weeks, how often have you been bothered by any of the following problems? Little Interest or Pleasure in Doing Things: Not at all Feeling Down, Depressed, or Hopeless: Not at all PHQ-2 Total Score (If total score is 3 or more points, staff should administer the PHQ-9): 0 Over the past 2 weeks, how often have you been bothered by any of the following problems? Little Interest or Pleasure in Doing Things: Not at all Feeling Down, Depressed, or Hopeless: Not at all Audio Screen: Is the patient having any problems with hearing? No Review of Systems Constitutional: Negative for appetite change, fatigue and fever. HENT: Negative for ear discharge, ear pain, hearing loss, postnasal drip, rhinorrhea, sinus pressure, sneezing and sore throat. Eyes: Negative for pain and [...] and hallucinations. The patient is not nervous/anxious. Vitals: Vitals: 10/20/19 1548 BP: (!) 106/44 Pulse: 66 Resp: 18 Temp: 36.3 ??C (97.3 ??F) SpO2: 98% Weight: 71.3 kg (157 lb 3.2 oz) Height: 177.8 cm (5' 10 ) Physical Exam Constitutional: Patient is oriented to person, place, and time. Patient appears well-developed and well-nourished. HENT: Head: Normocephalic and atraumatic. Right Ear: External ear normal. Intact tympanic membrane. Left Ear: External ear normal. Intact tympanic membrane. Nose: Nose normal. Mouth/Throat: Oropharynx is clear and moist. Eyes: Pupils are equal, round, and reactive to light. EOM are normal. Neck: Normal range of motion. Neck supple. No thyromegaly present. Cardiovascular: Regular rate and rhythm. No murmur. No gallop or rub or added sounds. Pulmonary/Chest: Good air entry bilaterally. No wheezing or rales or added sounds. No chest tenderness or swelling Abdominal: Soft. No tenderness. No masses or hepatosplenomegaly. Good bowel sounds. No hernias. Rectal : Not examined Musculoskeletal: Normal range of motion. Normal gait. No tenderness or swelling or deformity. Lymphadenopathy: Patient has no cervical adenopathy. Extremities: No cyanosis, clubbing or edema. Neurological: Patient is alert and oriented to person, place, and time. Positive dysarthria. Cranial nerves are intact. Reflexes are +2 all over. Power is 2/5 on the right side and 4+ over 5 on the left side. Intact sensation Skin: Skin is warm. No rash noted. No pallor. Psychiatric: Patient has a normal mood and affect. Up and Go Test: Patient was unsteady or time test was longer than 30 seconds? No Care Team Providers: Patient Care Team: Shawn Berkowitz MD as PCP - General (Internal Medicine) Primary Pharmacy/DME suppliers: [id number] [place], [place] - [address] [place] [address] [address] [facility] [id number] Detection of Cognitive Impairment: Detect cognitive impairment based on direct observation, discussion with patient or family, or review of medical records? No Counseling and Referral of Preventative Services: Other route measures as deemed appropriate: LIST OF RISK FACTORS AND CONDITIONS FOR WHICH PRIMARY, SECONDARY, TERTIARY INTERVENTIONS ARE RECOMMENDED OR ARE UNDERWAY WITH LIST OF TREATMENT OPTIONS AND THEIR RISKS AND BENEFITS. Please see patient instructions section for recommendations for appropriate screening and monitoring guidelines. Procedure Note: No notes on file Assessment and Plan: Audio Screen ordered? No Diagnoses and all orders for this visit: Hemiparesis as late effect of cerebrovascular accident (CVA) ([facility]) (Primary) Assessment & Plan: The patient has chronic hemiparesis secondary to old CVA. No change. Continue aspirin daily. The patient has paralysis on the right side and he needs a wheelchair to help him with ambulation . Recurrent major depressive disorder, remission status unspecified ([facility]) Assessment & Plan: Controlled on fluoxetine Essential (primary) hypertension Assessment & Plan: Will stop metoprolol because of low blood pressure. He will continue amlodipine. Will continue to monitor Seizure ([facility]) Assessment & Plan: Patient is maintained on Keppra and he is stable with no seizure Benign prostatic hyperplasia without lower urinary tract symptoms Assessment & Plan: Controlled on Flomax Dyslipidemia Assessment & Plan: Controlled on current medications. Continue low-fat diet. Will continue to monitor . Gastroesophageal reflux disease without esophagitis Assessment & Plan: Asymptomatic BMI 22.0-22.9, adult Assessment & Plan: The patient lost weight. According to him and his he has good appetite. I told him that he needs to increase his calorie intake and try not to lose more weight. Will continue to monitor Need for vaccination - Pneumococcal polysaccharide vaccine 23-valent greater than or equal to 2yo subcutaneous/IM (PNEUMOVAX) Smoking Assessment & Plan: The patient smokes 5-10 cigarettes daily. Discussed smoking cessation and different methods to helpwith that. Discussed the risks of smoking including COPD, CAD and lung cancer etc. Total time spentwas 3 minutes. The following health maintenance schedule was reviewed with the patient and provided in printed form in the after visit summary: Health Maintenance Topic Date Due ??? Hepatitis C Screening 1955 ??? Zoster Vaccines 2004 ??? DTaP/Tdap/Td Vaccine (2 - Td) 04/26/2014 ??? Abdominal Aortic Aneurysm (AAA) Screen 09/26/2019 ??? Influenza Vaccine (1) 11/30/2019 ??? Prostate Cancer Screening-PSA 05/13/2020 ??? Fall Risk Assessment 10/19/2020 ??? Depression Screening-PHQ 10/19/2020 ??? Regular Well Visit/Exam 10/19/2020 ? ? Pneumococcal (PCV13 & PPSV23) 65+ yrs (2 of 2 - PCV13) 10/19/2020 ??? Colon Cancer Screening-Colonoscopy 07/26/2027 documented in this encounter Miscellaneous Notes * Assessment & Plan Note - Shawn Berkowitz MD - 10/20/2019 4:56 PM CDT Associated Problem(s): Smoking The patient smokes 5-10 cigarettes daily. Discussed smoking cessation and different methods to helpwith that. Discussed the risks of smoking including COPD, CAD and lung cancer etc. Total time spentwas 3 minutes. * Assessment & Plan Note - Shawn Berkowitz MD - 10/20/2019 4:55 PM CDT Associated Problem(s): BMI 22.0-22.9, adult The patient lost weight. According to him and his he has good appetite. I told him that he needs to increase his calorie intake and try not to lose more weight. Will continue to monitor * Assessment & Plan Note - Shawn Berkowitz MD - 10/20/2019 1:10 PM CDT Associated Problem(s): Gastroesophageal reflux disease without esophagitis Asymptomatic * Assessment & Plan Note - Shawn Berkowitz MD - 10/20/2019 1:10 PM CDT Associated Problem(s): Dyslipidemia Controlled on current medications. Continue low-fat diet. Will continue to monitor . * Assessment & Plan Note - Shawn Berkowitz MD - 10/20/2019 1:10 PM CDT Associated Problem(s): Benign prostatic hyperplasia without lower urinary tract symptoms Controlled on Flomax * Assessment & Plan Note - Shawn Berkowitz MD - 10/20/2019 1:09 PM CDT Associated Problem(s): Seizure (HCC) Patient is maintained on Keppra and he is stable with no seizure * Assessment & Plan Note - Shawn Berkowitz MD - 10/20/2019 1:09 PM CDT Associated Problem(s): Essential (primary) hypertension Will stop metoprolol because of low blood pressure. He will continue amlodipine. Will continue to monitor * Assessment & Plan Note - Shawn Berkowitz MD - 10/20/2019 1:09 PM CDT Associated Problem(s): Recurrent major depressive disorder, in full remission (CMS/HCC) (HCC) (Deleted) Controlled on fluoxetine * Assessment & Plan Note - Shawn Berkowitz MD - 10/20/2019 1:08 PM CDT Associated Problem(s): Hemiparesis as late effect of cerebrovascular accident (CVA) (CMS/HCC) (HCC) The patient has chronic hemiparesis secondary to old CVA. No change. Continue aspirin daily. The patient has paralysis on the right side and he needs a wheelchair to help him with ambulation . documented in this encounter Plan of Treatment Not on file documented as of this encounter Visit Diagnoses Diagnosis Hemiparesis as late effect of cerebrovascular accident (CVA) (CMS/HCC) (HCC)- Primary Recurrent major depressive disorder, remission status unspecified (HCC) Essential (primary) hypertension Unspecified essential hypertension Seizure (HCC) Other convulsions Benign prostatic hyperplasia without lower urinary tract symptoms Dyslipidemia Other and unspecified hyperlipidemia Gastroesophageal reflux disease without esophagitis Esophageal reflux BMI 22.0-22.9, adult Need for vaccination Need for prophylactic vaccination and inoculation against unspecified single disease Smoking Tobacco use disorder documented in this encounter Discontinued Medications Medication Sig Discontinue Reason Start Date End Da te metoprolol tartrate (LOPRESSOR) 25 mg immediate release tablet TAKE 1 TABLET BY MOUTH TWICE A DAY 10/15/2019 10/20/2019 documented as of this encounter Orders Immunization/Injection Count Last Ordered Date First Ordered Date PNEUMOCOCCAL POLYSACCHARIDE VACCINE 23-VALENT =>2YO SQ IM 1 10/20/2019 documented in this encounter Additional Health Concerns 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 difficile Comment:Germ watcher auto flagging 01/15/2014 01/15/2014 documented as of this encounter Care Teams Home Comfort Advisor Relationship Specialty Start Date End Date Shawn Berkowitz MD [address] [facility] [address] [address] PCP - General Internal Medicine 08/11/18 documented as of this encounter
--- OUTSIDE RECORDS SUMMARY | 2024-04-03 17:34 | XMS_ITS | Encounter Summary ---
Author Organization [facility] Address [address] [place] [address] Care Team Providers Care Rounding Machine Operator Name Role Phone Unavailable Primary Care Provider Unavailabl e Encounter Details Date Type Department Care Team (Latest Contact Info) Description 04/12/2015 12:25 PM DRILLER HAND Hospital Encounter [facility] Er Shawn Pearson MD [address] [place] [address] [place] [phone] Encounter for screening for malignant neoplasm of prostate; Essential (primary) hypertension; Hyperlipidemia Social History Tobacco Use Types Packs/Day Years Used Date Smoking Tobacco: Never Assessed Sex and Gender Information Value Date Recorded Sex Assigned at Not on file Legal Sex Male 6:59 AM DRILLER HAND Gender Identity Not on file Sexual Orientation Not on file documented as of this encounter Plan of Treatment Not on file documented as of this encounter Procedures Procedure Name Priority Date/Time Associated Diagnosis Comments PSA SCREEN Routine 04/12/2015 12:34 PM DRILLER HAND LIPID PANEL Routine 04/12/2015 12:34 PM DRILLER HAND COMPREHENSIVE METABOLIC PANEL Routine 04/12/2015 12:34 PM DRILLER HAND documented in this encounter Results * PSA screen (04/12/2015 12:34 PM DRILLER HAND) [facility] PSA Screen 3.1 0.0 - 5.4 ng/mL Comment: Method: ECLIA Values obtained by different assay methods cannot be used interchangeably. ??Use sequential testing to confirm baseline if assay method changed during patient monitoring. 04/12/2015 12:3 4 PM DRILLER HAND 04/12/2015 1:04 PM DRILLER HAND Narrative [facility] HISTORICAL RESULTS - 04/12/2015 1:43 PM DRILLER HAND 12 HRS PC Shawn Berkowitz MD LAB BLOOD ORDERABLES Final Result Performing Organization Address [facility] de Phone Number [facility] HISTORICAL RESULTS * (ABNORMAL) Lipid panel (04/12/2015 12:34 PM DRILLER HAND) Triglycerides 82 0 - 199 mg/dL Comment:12 hr pc highly luis mmended for Triglyceride Cholesterol 72 0 - 199 mg/dL Comment: Borderline: ??200-239 High Risk: ?? >239 HDL Cholesterol 31(L) 40 - 60 mg/dL Comment: Major Risk ?< 40 mg/dL Moderate Risk ?40-60 mg/dL Negative Risk ?? > 60 mg/dL LDL Cholesterol, Calc 25 0 - 130 mg/dL Comment:High Risk > 159 mg/d L Cholesterol/HDL Ratio 2.3 Comment: Cholesterol / HDL Ratio 3.5:1 or less is desirable. Cholesterol / HDL Ratio greater than 5:1 is considered higher risk for developing heart disease. 04/12/2015 12:3 4 PM DRILLER HAND 04/12/2015 1:04 PM DRILLER HAND Narrative [facility] HISTORICAL RESULTS - 04/12/2015 1:42 PM DRILLER HAND 12 HRS PC Shawn Berkowitz MD LAB BLOOD ORDERABLES Final Result Performing Organization Address [facility] Phone Number [facility] HISTORICAL RESULTS * (ABNORMAL) Comprehensive metabolic panel (04/12/2015 12:34 PM DRILLER HAND) Sodium 138 135 - 145 mmol/L Potassium 3.4 3.3 - 5.1 mmol/L Chloride 97 96 - 108 mmol/L Carbon Dioxide 27 22 - 32 mmol/L Anion Gap 14 7 - 16 Glucose 81 70 - 100 mg/dL BUN 14 8 - 23 mg/dL Creatinine 0.8 0.5 - 1.3 mg/dL Comment: NOTE: Estimated GFR (Cockroft-Gault) will NOT be calculated unless patient Height and Weight were entered. Also, Kidney Disease Stage (GFR) and Estimated GFR (Cockroft-Gault) will NOT be calculated if Creatinine result is <0.2. Kidney Disease Stage > 90 mL/MIN Comment: NOTE; ??The GFR is an estimated value using the creatinine, sex, age, and race of the patient. THE ESTIMATED GFR IS VALIDATED FOR AGES 18-70 YEARS STAGE ?mL/Min ?DESCRIPTION ??1 ?90 mL/min or more ?Normal or elevated GFR ??2 ? 60-89 mL/min ?Mildly decreased GFR ??3 ? 30-59 mL/min ?Moderately decreased GFR ??4 ? 15-29 mL/min ?Severely decreased GFR ??5 ? <15 mL/min ? Kidney failure or on dialysis @ Calcium 8.9 8.8 - 10.2 mg/dL 04/12/2015 1:42 PM [facility] [employer] HISTORICAL RESULTS Total Protein 7.7 6.4 - 8.3 g/dL 04/12/2015 1:42 PM [facility] [employer] [facility] HISTORICAL RESULTS Albumin 4.0 3.5 - 5.2 g/dL Globulin 3.7(H) 2.3 - 3.5 gm/dL 04/12/2015 1:42 PM [facility] HISTORICAL RESULTS Albumin/Globulin Ratio 1.1 1.1 - 1.8 04/12/2015 1:42 PM [facility] [employer] [facility] HISTORICAL RESULTS Total Bilirubin 0.3 0.0 - 1.2 mg/dL 04/12/2015 1:42 PM [facility] [employer] [facility] HISTORICAL RESULTS AST 13 0 - 40 U/L 04/12/2015 1:42 PM [facility] HISTORICAL RESULTS ALT 10 0 - 41 U/L Alkaline Phosphatase 90 40 - 129 U/L 04/12/2015 1:42 PM [facility] [employer] [facility] HISTORICAL RESULTS 04/12/2015 12:3 4 PM [facility] 04/12/2015 1:04 PM DRILLER HAND Narrative [facility] [employer] [facility] HISTORICAL RESULTS - 04/12/2015 1:42 PM [facility] 12 HRS PC us Shawn Berkowitz MD LAB BLOOD ORDERABLES Final Result [facility] HISTORICAL RESULTS documented in this encounter Visit Diagnoses Diagnosis Encounter for screening for malignant neoplasm of prostate Essential (primary) hypertension Unspecified essential hypertension Hyperlipidemia Other and unspecified hyperlipidemia documented in this encounter Additional Health Concerns 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 difficile Comment:Germ watcher auto flagging 01/15/2014 01/15/2014 documented as of this encounter
--- OUTSIDE RECORDS SUMMARY | 2024-04-03 17:34 | XMS_ITS | Encounter Summary ---
Author Organization [facility] Healthcare Address [address] [place] [address] Care Team Providers Care Forestry Engineer Name Role Phone Unavailable Primary Care Provider Unavailabl e Encounter Details Date Type Department Care Team (Latest Contact Info) Description 02/26/2016 12:54 PM PORTFOLIO ASSISTANT Hospital Encounter [facility] Shawn Pearson MD [address] [place] [address] [place] [address] [phone] Convulsions (CMS/HCC) Social History Tobacco Use Types Packs/Day Years Used Date Smoking Tobacco: Never Assessed Sex and Gender Information Value Date Recorded Sex Assigned at Not on file Legal Sex Male 6:59 AM PORTFOLIO ASSISTANT Gender Identity Not on file Sexual Orientation Not on file documented as of this encounter Plan of Treatment Not on file documented as of this encounter Procedures Procedure Name Priority Date/Time Associated Diagnosis Comments EEG Routine 02/26/2016 1:00 PM PORTFOLIO ASSISTANT SCAN - NEUROLOGY 02/26/2016 12:0 0 AM PORTFOLIO ASSISTANT documented in this encounter Results * EEG (02/26/2016 1:00 PM PORTFOLIO ASSISTANT) Anatomical Region Laterality Modality Other 02/26/2016 1:00 PM PORTFOLIO ASSISTANT Impressions 02/27/2016 11:05 AM PORTFOLIO ASSISTANT ??Abnormal EEG because of slow and disorganized activity from left hemisphere. ??Occasional slow spikes were also seen from left frontal leads. Seizures could be a risk factor in this patient because of asymmetry and sharp activity as described above. NTS Job: [id number] Dictated By: Sheikh Mendoza MD Dictated For: ??MD Mendoza [EOD] Narrative 02/27/2016 11:05 AM PORTFOLIO ASSISTANT DATE OF SERVICE: 02/26/2016 EEG was done on this 60-year-old man for evaluation of seizures. EEG was done on international 10/20 system. ??It consisted of awake, photic stimulation and brief period of drowsiness. ??Hyperventilation was not done. EEG was done on 02/25 and read on 02/26/16. EEG showed well-formed alpha activity at 10 Hz per second from right side. ??The left side was slow, disorganized and showed slower activity at about 6-7 Hz per second. ??Record was diffusely slow and disorganized on left compared to right. ??No focal paroxysmal or epileptiform discharges were seen except near the end of recording there were a couple of slow spikes noticed from left frontal areas. Photic stimulation did not produce any driving, photomyogenic or photoconvulsive response. Patient drowsed and well-formed spindle activity was present on right compared to left. Procedure Note Provider, MD Mirna - 10/25/2020 DATE OF SERVICE: 02/26/2016 EEG was done on this 60-year-old man for evaluation of seizures. EEG was done on international 10/20 system. It consisted of awake, photicstimulation and brief period of drowsiness. Hyperventilation was notdone. EEG was done on 02/25 and read on 02/26/16. EEG showed well-formed alpha activity at 10 Hz per second from right side.The left side was slow, disorganized and showed slower activity at about6-7 Hz per second. Record was diffusely slow and disorganized on leftcompared to right. No focal paroxysmal or epileptiform discharges wereseen except near the end of recording there were a couple of slow spikesnoticed from left frontal areas. Photic stimulation did not produce any driving, photomyogenic orphotoconvulsive response. Patient drowsed and well-formed spindle activity was present on rightcompared to left. IMPRESSION: Abnormal EEG because of slow and disorganized activity fromleft hemisphere. Occasional slow spikes were also seen from left frontalleads. Seizures could be a risk factor in this patient because of asymmetry andsharp activity as described above. NTS Job: [id number] Dictated By: Sheikh Mendoza MD Dictated For: Sheikh Mendoza MD [EOD] Shawn Berkowitz MD NEUROLOGY ORDERABLES Final Result * SCAN - NEUROLOGY (02/26/2016 12:00 AM PORTFOLIO ASSISTANT) Anatomical Region Laterality Modality Other Narrative 02/26/2016 12:00 AM PORTFOLIO ASSISTANT Ordered by an unspecified provider. 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 difficile Comment:Germ watcher auto flagging 01/15/2014 01/15/2014 documented as of this encounter
--- OUTSIDE RECORDS SUMMARY | 2024-04-03 17:34 | XMS_ITS | Encounter Summary ---
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 difficile Comment:Germ watcher auto flagging 01/15/2014 01/15/2014 documented as of this encounter Care Teams Blindstitch Hemmer Relationship Specialty Start Date End Date Shawn Berkowitz MD [address] [place] [address] [place] [address] PCP - General Internal Medicine 08/11/18 documented as of this encounter
--- OUTSIDE RECORDS SUMMARY | 2024-04-03 17:34 | XMS_ITS | Encounter Summary ---
Author Organization [facility] Facility Care Team Providers Care Radiotelegrapher Name Role Phone Unavailable Primary Care Provider Unavailabl e Encounter Details Date Type Department Care Team (Late st Contact Info) Description 02/20/2015 - 02/20/2015 11:59 PM PITCH FILLER Hospital Encounter [facility] Markie Crawford MD [address] [place] [address] Social History Tobacco Use Types Packs/Day Years Used Date Smoking Tobacco: Never Assessed Sex and Gender Information Value Date Recorded Sex Assigned at Not on file Legal Sex Male 6:59 AM PITCH FILLER Gender Identity Not on file Sexual Orientation [...]
--- OUTSIDE RECORDS SUMMARY | 2024-04-03 17:34 | XMS_ITS | Encounter Summary ---
Author Organization [facility] Healthcare Address [address] [place] [address] Care Team Providers Care Pediatrician Managing Partner Name Role Phone Unavailable Primary Care Provider Unavailabl e Encounter Details Date Type Department Care Team (Late st Contact Info) Description 12/10/2017 1:55 PM CDT Hospital Encounter [facility] Shawn Pearson MD [address] [place], [place] [phone] Disorder of bone Social History Tobacco Use Types Packs/Day Years Used Date Smoking Tobacco: Never Assessed Sex and Gender Information Value Date Recorded Sex Assigned at Not on file 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 Gender Identity Not on file Sexual Orientation Not on file documented as of this encounter Plan of Treatment Not on file documented as of this encounter Procedures Procedure Name Priority Date/Time Associated Diagnosis Comments XR SHOULDER RIGHT 2 OR MORE VIEWS Routine 12/10/2017 1:58 PM CDT documented in this encounter Results * XR Shoulder Right 2 or More Views (12/10/2017 1:58 PM CDT) Anatomical Region Laterality Modality Upper Extremities, Shoulder Right Radi ographic Imaging 12/10/2017 1:58 PM CDT Impressions 12/10/2017 2:38 PM CDT ??Numerous lytic rib lesions identified throughout the humerus and scapula. ??This is concerning for metastatic disease. ??Bone scan correlation is recommended. ??No acute fracture. THIS IS AN ELECTRONICALLY VERIFIED FINAL REPORT 12/10/2017 2:35 PM - Electronically signed by Diego Hagen M.D. [place] D: ??12/10/2017 2:35 PM T: Report ID: [id number] Reading Location: ??[id number] [EOD] Narrative 12/10/2017 2:38 PM CDT EXAM DESCRIPTION: ??Shoulder RT 2Vw Min (STANDARD) REASON FOR STUDY: ??Chronic pain and bruising from fall. TECHNIQUE: ??Internal rotation, external rotation, and scapular Y views of the right shoulder were obtained. COMPARISON: ??None available FINDINGS: BONES/JOINTS: There is a patchy lytic appearance throughout the right humerus and right scapula. ??This may represent metastatic disease. ??No definite fracture is present. ??Bone scan correlation is recommended. Procedure Note Provider, MD Mirna - 08/15/2020 EXAM DESCRIPTION: Shoulder RT 2Vw Min (STANDARD) REASON FOR STUDY: Chronic pain and bruising from fall. TECHNIQUE: Internal rotation, external rotation, and scapular Y views ofthe right shoulder were obtained. COMPARISON: None available FINDINGS: BONES/JOINTS: There is a patchy lytic appearance throughout the righthumerus and right scapula. This may represent metastatic disease. No definite fracture is present. Bone scan correlation is recommended. IMPRESSION: Numerous lytic rib lesions identified throughout the humerusand scapula. This is concerning for metastatic disease. Bone scancorrelation is recommended. No acute fracture. THIS IS AN ELECTRONICALLY VERIFIED FINAL REPORT 12/10/2017 2:35 PM - Electronically signed by Diego WHITMAN T: Report ID: [id number] Reading Location: [id number] [EOD] Shawn Berkowitz MD IMG XR PROCEDURES Final Res ult documented in this encounter Visit Diagnoses Diagnosis Disorder of bone documented in this encounter Additional Health Concerns 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 difficile Comment:Germ watcher auto flagging 01/15/2014 01/15/2014 documented as of this encounter
--- OUTSIDE RECORDS SUMMARY | 2024-04-03 17:34 | XMS_ITS | Encounter Summary ---
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 Historical Provider Final Res ult documented in this encounter Visit Diagnoses Not on filedocumented in this encounter Additional Health Concerns 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 difficile Comment:Germ watcher auto flagging 01/15/2014 01/15/2014 documented as of this encounter Care Teams Breakfast Manager Relationship Specialty Start Date End Date Shawn Berkowitz MD [address] [place] [address] PCP - General Internal Medicine 08/11/18 documented as of this encounter
--- OUTSIDE RECORDS SUMMARY | 2024-04-03 17:34 | XMS_ITS | Encounter Summary ---
Author Organization [facility] Address [address] [place] [address] Care Team Providers Care Elementary Reading Specialist Name Role Phone Unavailable Primary Care Provider Unavailabl e Reason for Visit * Reason Onset Date Comments Med Refill 07/08/2018 needing refills sent to [facility] Encounter Details Date Type Department Care Team (Late st Contact Info) Description 07/08/2018 Telephone [facility] Internal Medicine [address] [facility] [address] [place] [address] [place] [address] [place] [address] [address] [place] [address] Med Refill (needing refills sent to [facility]) Social History Tobacco Use Types Packs/Day Years Used Date Smoking Tobacco: Never Assessed Sex and Gender Information Value Date Recorded Sex Assigned at Not on file 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 Gender Identity Not on file Sexual Orientation Not on file documented as of this encounter Ordered Prescriptions Prescription Sig Dispense Quantity Refills Last Filled Start Date End Date tamsulosin (FLOMAX) 0.4 mg extended release capsule Take 1 capsule (0.4 mg total) by mouth daily 30 capsule 1 07/08/2018 9 raNITIdine (ZANTAC) 300 mg tablet Take 1 tablet (300 mg total) by mouth 2 (two) times a day 60 tablet 1 07/08/2018 9 metoprolol (LOPRESSOR) 25 mg tablet Take 1 tablet (25 mg total) by mouth 2 (two) times a day 60 tablet 1 07/08/2018 9 levETIRAcetam (KEPPRA) 500 mg tablet Take 1 tablet (500 mg total) by mouth every 12 (twelve) hours 60 tablet 1 07/08/2018 9 gabapentin (NEURONTIN) 800 mg tablet Take 1 tablet (800 mg total) by mouth 4 (four) times a day 120 tablet 1 07/08/2018 9 atorvastatin (LIPITOR) 40 mg tablet Take 1 tablet (40 mg total) by mouth daily 30 tablet 1 07/08/2018 9 amLODIPine (NORVASC) 10 mg tablet Take 1 tablet (10 mg total) by mouth daily 30 tablet 1 07/08/2018 9 amitriptyline (ELAVIL) 75 mg tablet Take 1 tablet (75 mg total) by mouth daily 30 tablet 1 07/08/2018 9 documented in this encounter Miscellaneous Notes * Telephone Encounter - Janeen Alba MA - 07/08/2018 6:49 PM CDT Refills sent to [facility] 08/12/2018 documented in this encounter Plan of Treatment Not on file documented as of this encounter Visit Diagnoses Not on filedocumented in this encounter Discontinued Medications Medication Sig Discontinue Reason Start Date End Da te amitriptyline (ELAVIL) 75 mg tablet Take 1 tablet by mouth daily Reorder 06/22/2018 07/08/2018 amLODIPine (NORVASC) 10 mg tablet Take 1 tablet by mouth daily Reorder 07/08/2018 atorvastatin (LIPITOR) 40 mg tablet Take 40 mg by mouth daily Reorder 07/08/2018 gabapentin (NEURONTIN) 800 mg tablet Take 1 tablet by mouth 4 (four) times a day Reorder 06/17/2018 07/08/2018 levETIRAcetam (KEPPRA) 500 mg tablet 500 mg every 12 (twelve) hours Reorder 07/08/2018 metoprolol (LOPRESSOR) 25 mg tablet 1 tablet 2 times daily Reorder 07/08/2018 raNITIdine (ZANTAC) 300 mg tablet 300 mg 2 (two) times a day Reorder 07/08/2018 tamsulosin (FLOMAX) 0.4 mg extended release capsule 0.4 mg daily Reorder 07/08/2018 documented as of this encounter Historical Medications * This list may reflect changes made after this encounter. tamsulosin (FLOMAX) 0.4 mg extended release capsule 0.4 mg daily 07/08/2018 metoprolol (LOPRESSOR) 25 mg tablet 1 tablet 2 times daily 07/08/2018 raNITIdine (ZANTAC) 300 mg tablet 300 mg 2 (two) times a day 07/08/2018 gabapentin (NEURONTIN) 800 mg tablet Take 1 tablet by mouth 4 (four) times a day 2 06/17/2018 07/08/2018 levETIRAcetam (KEPPRA) 500 mg tablet 500 mg every 12 (twelve) hours 07/08/2018 amLODIPine (NORVASC) 10 mg tablet Take 1 tablet by mouth daily 07/08/2018 atorvastatin (LIPITOR) 40 mg tablet Take 40 mg by mouth daily 07/08/2018 amitriptyline (ELAVIL) 75 mg tablet Take 1 tablet by mouth daily 0 06/22/2018 07/08/2018 added in this encounter Additional Health Concerns 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 difficile Comment:Germ watcher auto flagging 01/15/2014 01/15/2014 documented as of this encounter
--- OUTSIDE RECORDS SUMMARY | 2024-04-03 17:34 | XMS_ITS | Encounter Summary ---
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 Historical Provider Final Res ult documented in this encounter Visit Diagnoses Not on filedocumented in this encounter Additional Health Concerns 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 difficile Comment:Germ watcher auto flagging 01/15/2014 01/15/2014 documented as of this encounter Care Teams Program Proposals Coordinator Relationship Specialty Start Date End Date Shawn Berkowitz MD [address] [place] [address] PCP - General Internal Medicine 08/11/18 documented as of this encounter
--- OUTSIDE RECORDS SUMMARY | 2024-04-03 17:34 | XMS_ITS | Encounter Summary ---
Author Organization 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 Historical Provider Final Res ult * SCAN - LABS (07/12/2015 12:00 AM CDT) Narrative 07/12/2015 12:00 AM CDT Ordered by an unspecified provider. Historical Provider Final Res ult * SCAN - LABS (07/12/2015 12:00 AM CDT) Narrative 07/12/2015 12:00 AM CDT Ordered by an unspecified provider. Historical Provider MD Final Res ult * SCAN - LABS (07/12/2015 12:00 AM CDT) Narrative 07/12/2015 12:00 AM CDT Ordered by an unspecified provider. Historical Provider MD Final Res ult * SCAN - LABS (07/12/2015 12:00 AM CDT) Narrative 07/12/2015 12:00 AM CDT Ordered by an unspecified provider. [facility] Provider MD Final Res ult documented in this encounter Visit Diagnoses Not on filedocumented in this encounter Additional Health Concerns 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 difficile Comment:Germ watcher auto flagging 01/15/2014 01/15/2014 documented as of this encounter Care Teams Type Disk Quality Control Supervisor Relationship Specialty Start Date End Date Shawn Berkowitz MD [address] [place] [place] [address] PCP - General Internal Medicine 08/11/18 documented as of this encounter
--- OUTSIDE RECORDS SUMMARY | 2024-04-03 17:34 | XMS_ITS | Encounter Summary ---
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 Gender Identity Not on file Sexual Orientation Not on file documented as of this encounter Medications at Time of Discharge aspirin 325 mg tablet Take 325 mg by mouth daily amitriptyline (ELAVIL) 75 mg tablet Take 1 tablet (75 mg total) by mouth daily 30 tablet 1 07/08/2018 10/26/2018 amLODIPine (NORVASC) 10 mg tablet TAKE 1 TABLET BY MOUTH EVERY DAY 30 tablet 1 09/02/2018 10/26/2018 atorvastatin (LIPITOR) 40 mg tablet TAKE 1 TABLET BY MOUTH EVERY DAY 30 tablet 1 09/02/2018 10/26/2018 gabapentin (NEURONTIN) 800 mg tablet TAKE 1 TABLET BY MOUTH 4 TIMES A DAY 120 tablet 1 09/02/2018 10/26/2018 levETIRAcetam (KEPPRA) 500 mg tablet TAKE 1 TABLET BY MOUTH EVERY 12 HOURS 60 tablet 1 09/02/2018 10/26/2018 metoprolol (LOPRESSOR) 25 mg tablet Take 1 tablet (25 mg total) by mouth 2 (two) times a day 60 tablet 1 07/08/2018 09/28/2018 raNITIdine (ZANTAC) 300 mg tablet TAKE 1 TABLET BY MOUTH TWICE A DAY 60 tablet 1 09/02/2018 10/26/2018 tamsulosin (FLOMAX) 0.4 mg extended release capsule TAKE 1 CAPSULE BY MOUTH EVERY DAY 30 capsule 1 09/02/2018 10/26/2018 documented as of this encounter Plan of Treatment Not on file documented as of this encounter Procedures Procedure Name Priority Date/Time Associated Diagnosis Comments US CAROTIDS DUPLEX BILATERAL 09/04/2018 1:22 PM CDT documented in this encounter Results * US Carotids Duplex Bilateral (09/04/2018 1:22 PM CDT) Anatomical Region Laterality Modality Vascular Bilateral Ultrasound 09/04/2018 6:02 PM CDT Narrative 09/04/2018 7:09 PM CDT ? Patient Name: CURLY ANGELO ? MR#: [id number] ?? [id number] ? Status: REG CLI ? D.O.B: 1955 Age: ??62 ?Sex: Male ? ADM/SER Dt: 09/04/18 ?Disch Dt: ? LOC: H.CVU ? Ordering Phy: Sho,Nidal M MD ? Order #[id number] ? Carotid Ultrasound Bilateral ?? Shay Dobbins MD ? Signed ?? DATE OF SERVICE: ?? 09/04/2018 ? REASON FOR STUDY: ??Aphasia. ? Vertebral artery flow is antegrade bilaterally. ??There is moderate plaque in both internal carotid arteries and 50-79% diameter stenoses. ??There is moderate increase in peak systolic velocity in both internal carotid arteries. ??Velocity on the right is 131 cm/s, on the left is 161 cm/s. ? IMPRESSION: ??Moderate stenoses in both internal carotid arteries measuring 50- 79% in diameter. ? NTS ? Job: [id number] ? Dictated By: Shay Dobbins MD ?? Dictated For: Shay Dobbins MD ? <Electronically signed by Shay Dobbins MD> ? 09/05/18721 ?? Resulting Agency Comment O Procedure Note Shay Dobbins MD - 09/05/2018 Patient Name: CURLY ANGELO #: [id number] Status: REG CLI D.O.B: 1955 Age: 62Sex: Male ADM/SER Dt: 09/04/18 [facility] Dt:LOC: [facility] Ordering Phy: Shawn Berkowitz MD Order #[id number] Carotid Ultrasound Bilateral Shay Dobbins MD Signed DATE OF SERVICE: 09/04/2018 REASON FOR STUDY: Aphasia. Vertebral artery flow is antegrade bilaterally. There is moderate plaquein both internal carotid arteries and 50-79% diameter stenoses. There is moderate increase in peaksystolic velocity in both internal carotid arteries. Velocity on the right is 131 cm/s, on the leftis 161 cm/s. IMPRESSION: Moderate stenoses in both internal carotid arteriesmeasuring 50-79% in diameter. 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 difficile Comment:Germ watcher auto flagging 01/15/2014 01/15/2014 documented as of this encounter Care Teams Wind Turbine Controls Engineer Relationship Specialty Start Date End Date Shawn Berkowitz MD [address] [facility] [address] [place] [address] [place] [id number] PCP - General Internal Medicine 08/11/18 documented as of this encounter
--- OUTSIDE RECORDS SUMMARY | 2024-04-03 17:34 | XMS_ITS | Encounter Summary ---
Author Organization [facility] Healthcare Address [address] [place] [address] Care Team Providers Care Boomboat Operator Name Role Phone Unavailable Primary Care Provider Unavailabl e Encounter Details Date Type Department Care Team (Latest Contact Info) Description 09/16/2016 9:50 AM CDT Hospital Encounter [facility] Shawn Pearson MD [address] [facility] [address] [place], [place] [id number] Hyperlipidemia; Convulsions (CMS/HCC) Social History Tobacco Use Types Packs/Day Years Used Date Smoking Tobacco: Never Assessed Sex and Gender Information Value Date Recorded Sex Assigned at Not on file 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 Gender Identity Not on file Sexual Orientation Not on file documented as of this encounter Plan of Treatment Not on file documented as of this encounter Procedures Procedure Name Priority Date/Time Associated Diagnosis Comments LEVETIRACETAM LEVEL Routine 09/16/2016 1 0:04 AM CDT LIPID PANEL Routine 09/16/2016 10:04 AM CDT COMPREHENSIVE METABOLIC PANEL Routine 09/16/2016 10:04 AM CDT documented in this encounter Results * Levetiracetam level (09/16/2016 10:04 AM CDT) Levetiracetam 25 12 - 46 ug/mL 09/17/2016 3:45 PM CDT [facility][NOTE 3] HISTORICAL RESULTS Comment: INTERPRETIVE INFORMATION: Keppra (Levetiracetam) ?? Therapeutic Range: ??12-46 ug/mL ?Toxic: ??Not well Established ?? Pharmacokinetics of levetiracetam are affected by renal ?? function. Adverse effects may include somnolence, weakness, ?? headache and vomiting. ?? Performed by [employer], ?? [address], [facility] [place] [address] ?? [email or web address], Aurelio Menjivar MD, Lab. Director ?? 09/16/2016 10:0 4 AM CDT 09/16/2016 10:33 AM CDT us Shawn Berkowitz MD LAB BLOOD ORDERABLES Final Result [facility][NOTE 3] HISTORICAL RESULTS * (ABNORMAL) Lipid panel (09/16/2016 10:04 AM CDT) Triglycerides 81 0 - 199 mg/dL Comment:12 hr pc highly luis mmended for Triglyceride Cholesterol 99 0 - 199 mg/dL Comment: Borderline: ??200-239 High Risk: ?? >239 HDL Cholesterol 32(L) 40 - 60 mg/dL Comment: Major Risk ?< 40 mg/dL Moderate Risk ?40-60 mg/dL Negative Risk ?? > 60 mg/dL LDL Cholesterol, Calc 51 0 - 130 mg/dL 09/16/2016 11:01 AM T [facility][NOTE 3] HISTORICAL RESULTS Comment:High Risk > 159 mg/d L Cholesterol/HDL Ratio 3.1 Comment: Cholesterol / HDL Ratio 3.5:1 or less is desirable. Cholesterol / HDL Ratio greater than 5:1 is considered higher risk for developing heart disease. 09/16/2016 10:0 4 AM CDT 09/16/2016 10:33 AM CDT Narrative [facility][NOTE 3] HISTORICAL RESULTS - 09/16/2016 11:01 AM CDT 12 HOURS FASITNG us Shawn Berkowitz MD LAB BLOOD ORDERABLES Final Result [facility][NOTE 3] HISTORICAL RESULTS * (ABNORMAL) Comprehensive metabolic panel (09/16/2016 10:04 AM CDT) Sodium 142 135 - 145 mmol/L 09/16/2016 11:01 AM T [facility][NOTE 3] HISTORICAL RESULTS Potassium 3.9 3.3 - 5.1 mmol/L 09/16/2016 11:01 AM T [facility][NOTE 3] HISTORICAL RESULTS Chloride 102 96 - 108 mmol/L 09/16/2016 11:01 AM T [facility][NOTE 3] HISTORICAL RESULTS Carbon Dioxide 25 22 - 32 mmol/L 09/16/2016 11:01 AM T [facility][NOTE 3] HISTORICAL RESULTS Anion Gap 15 7 - 16 09/16/2016 11:01 AM T [facility][NOTE 3] HISTORICAL RESULTS Glucose 104(H) 70 - 100 mg/dL 09/16/2016 11:01 AM T [facility][NOTE 3] HISTORICAL RESULTS BUN 23 8 - 23 mg/dL 09/16/2016 11:01 AM T [facility][NOTE 3] HISTORICAL RESULTS Creatinine 1.2 0.5 - 1.3 mg/dL Comment: NOTE: Estimated GFR (Cockroft-Gault) will NOT be calculated unless patient Height and Weight were entered. Also, Kidney Disease Stage (GFR) and Estimated GFR (Cockroft-Gault) will NOT be calculated if Creatinine result is <0.2. Kidney Disease Stage 65 mL/MIN Comment: NOTE; ??The GFR is an [...] Kidney failure or on dialysis @ Calcium 9.5 8.8 - 10.2 mg/dL 09/16/2016 11:01 AM [facility] [employer] HISTORICAL RESULTS Total Protein 8.9(H) 6.4 - 8.3 g/dL 09/16/2016 11:01 AM [facility] [email or web address] [facility] H[facility]OR[facility] RES[facility] Albumin 4.3 3.5 - 5.2 g/dL 09/16/2016 11:01 AM [facility] [email or web address] [facility] HISTORICAL RESULTS Globulin 4.6(H) 2.3 - 3.5 gm/dL 09/16/2016 11:01 AM [facility] HISTORICAL RESULTS Albumin/Globulin Ratio 0.9(L) 1.1 - 1.8 09/16/2016 11:01 AM [facility] HISTORICAL RESULTS Total Bilirubin 0.3 0.0 - 1.2 mg/dL 09/16/2016 11:01 AM [facility] [email or web address] [facility] HISTORICAL RESULTS AST 13 0 - 40 U/L 09/16/2016 11:01 AM [facility] HISTORICAL RESULTS ALT 11 0 - 41 U/L 09/16/2016 11:01 AM [facility] HISTORICAL RESULTS Alkaline Phosphatase 105 40 - 129 U/L 09/16/2016 11:01 AM [facility] HISTORICAL RESULTS 09/16/2016 10:0 4 AM CDT 09/16/2016 10:33 AM [facility] N[facility] [facility] HISTORICAL RESULTS - 09/16/2016 11:01 AM CDT 12 HOURS FASITNG us Shawn Berkowitz MD LAB BLOOD ORDERABLES Final Result [facility][NOTE 3] HISTORICAL RESULTS documented in this encounter Visit Diagnoses Diagnosis Hyperlipidemia Other and unspecified hyperlipidemia Convulsions (HCC) Other convulsions documented in this encounter Additional Health Concerns 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 difficile Comment:Germ watcher auto flagging 01/15/2014 01/15/2014 documented as of this encounter
--- OUTSIDE RECORDS SUMMARY | 2024-04-03 17:34 | XMS_ITS | Encounter Summary ---
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 [place] [address] PCP - General Internal Medicine 08/11/18 documented as of this encounter
--- OUTSIDE RECORDS SUMMARY | 2024-04-03 17:34 | XMS_ITS | Encounter Summary ---
Author Organization [facility] Address [address] [facility] [address] [place] [address] Care Team Providers Care Mill Order Scheduler Name Role Phone Shawn Berkowitz MD Primary Care Provider [phone] Encounter Details Date Type Department Care Team (Late st Contact Info) Description 08/22/2018 Orders Only [facility] Internal Medicine [address] [facility] [address] [place] [address] Janeen Alba MA Social History Tobacco Use Types Packs/Day Years Used Date Smoking Tobacco: Never Assessed AUDIT-C Answer Date Recorded Frequency of Alcohol Consumption Never 08/25/2018 Average Number of Drinks Not on file 019 Frequency of Binge Drinking Not on file 07/30 Sex and Gender Information Value Date Recorded Sex Assigned at Not on file 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 aspirin 325 mg tablet Take 325 mg by mouth daily added in this encounter Additional Health Concerns 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 difficile Comment:Germ watcher auto flagging 01/15/2014 01/15/2014 documented as of this encounter Care Teams Mill Order Scheduler Relationship Specialty Start Date End Date Shawn Berkowitz MD [address] [facility] [address] [place] [address] PCP - General Internal Medicine 08/11/18 documented as of this encounter
--- OUTSIDE RECORDS SUMMARY | 2024-04-03 17:34 | XMS_ITS | Encounter Summary ---
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); Essential (primary) hypertension; Cigarette nicotine dependence, uncomplicated; Other terminal gauger (current) drug therapy Social History Tobacco Use Types Packs/Day Years Used Date Smoking Tobacco: Never Assessed Sex and Gender Information Value Date Recorded Sex Assigned at Not on file 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 Gender Identity Not on file Sexual Orientation Not on file documented as of this encounter Last Filed Vital Signs Vital Sign Reading Time Taken Comments Blood Pressure 112/43 01/25/2016 6:31 AM CDT Pulse 65 01/25/2016 6:31 AM CDT Temperature 36.3 ??C (97.4 ??F) 01/25/2016 6:31 AM CD T Respiratory Rate - - Oxygen Saturation 96% 01/25/2016 6:31 AM CDT Inhaled Oxygen Concentration - - Weight 83.5 kg (184 lb) 01/25/2016 6:31 AM CDT Height 177.8 cm (5' 10 ) 01/25/2016 6:31 AM CDT Body Mass Index 26.4 01/25/2016 6:31 AM CDT documented in this encounter Plan of Treatment Not on file documented as of this encounter Procedures Procedure Name Priority Date/Time Associated Diagnosis Comments TROPONIN I Routine 01/25/2016 10:29 AM CDT TNI WITH LIPID PANEL Routine 01/25/2016 7:09 AM CDT CBC WITH AUTO DIFFERENTIAL Routine 01/25/2016 7:09 AM CDT APTT Routine 01/25/2016 7:09 AM CDT PROTIME-INR Routine 01/25/2016 7:09 AM CDT PHOSPHORUS Routine 01/25/2016 7:09 AM CDT MAGNESIUM Routine 01/25/2016 7:09 AM CDT CREATINE KINASE (CK), TOTAL Routine 01/25/2016 7:09 AM CDT COMPREHENSIVE METABOLIC PANEL Routine 01/25/2016 7:09 AM CDT URINALYSIS Routine 01/25/2016 12:00 AM CDT XR CHEST 1 VIEW Routine 01/25/2016 12:[address] HEAD WO CONTRAST Routine 01/25/2016 1 2:00 AM CDT documented in this encounter Results * Troponin I (01/25/2016 10:29 AM CDT) Troponin I < 0.300 0.000 - 0.300 ng/mL 01/25/2016 11:03 AM CDT [facility] HISTORICAL RESULTS Comment: Reference using LAKESHA Chemiluminescence ? Negative: Repeat in 4-6 hours as indicated. 01/25/2016 10:2 9 AM CDT 01/25/2016 10:32 AM CDT us Tate Moreno MD LAB BLOOD ORDERABLES Final Resu lt [facility] HISTORICAL RESULTS * (ABNORMAL) Phosphorus (01/25/2016 7:09 AM CDT) Phosphorus 2.3(L) 2.5 - 4.5 mg/dL 01/25/2016 7:54 AM CDT [facility] HISTORICAL RESULTS 01/25/2016 7:09 AM CDT 01/25/2016 7:20 AM CDT us Tate Moreno MD LAB BLOOD ORDERABLES Final Resu lt Performing Organization Address [facility] de Phone Number [facility] HISTORICAL RESULTS * Magnesium (01/25/2016 7:09 AM CDT) [facility] Magnesium 1.7 1.6 - 2.6 mg/dL 01/25/2016 7:54 AM CDT [facility] HISTORICAL RESULTS Comment:Magnesium sulfate th erapy: 3.0-9.1 mg/dL 01/25/2016 7:09 AM CDT 01/25/2016 7:20 AM CDT us Tate Moreno MD LAB BLOOD ORDERABLES Final Resu lt Performing Organization Address [facility] de Phone Number [facility] HISTORICAL RESULTS * Creatine kinase (CK), total (01/25/2016 7:09 AM CDT) Pathologist [facility] Creatine Kinase 41 20 - 200 U/L 01/25/2016 7:54 AM CDT [facility] HISTORICAL RESULTS 01/25/2016 7:09 AM CDT 01/25/2016 7:20 AM CDT us Tate Moreno MD LAB BLOOD ORDERABLES Final Resu lt Performing Organization Address [facility] de Phone Number [facility] HISTORICAL RESULTS * (ABNORMAL) TNI with LIPID PANEL (01/25/2016 7:09 AM CDT) Troponin I < 0.300 0.000 - 0.300 ng/mL Comment: Reference using [place] Chemiluminescence ? Negative: Repeat in 4-6 hours as indicated. Triglycerides 102 0 - 199 mg/dL Comment:12 hr pc highly luis mmended for Triglyceride Cholesterol 92 0 - 199 mg/dL Comment: Borderline: ??200-239 High Risk: ?? >239 HDL Cholesterol 27(L) 40 - 60 mg/dL Comment: Major Risk ?< 40 mg/dL Moderate Risk ?40-60 mg/dL Negative Risk ?? > 60 mg/dL LDL Cholesterol, Calc 45 0 - 130 mg/dL Comment:High Risk > 159 mg/d L Cholesterol/HDL Ratio 3.4 Comment: Cholesterol / HDL Ratio 3.5:1 or less is desirable. Cholesterol / HDL Ratio greater than 5:1 is considered higher risk for developing heart disease. 01/25/2016 7:09 AM CDT 01/25/2016 7:20 AM CDT us Tate Moreno MD LAB BLOOD ORDERABLES Final Resu lt [facility] HISTORICAL RESULTS * Protime-INR (01/25/2016 7:09 AM CDT) PT 14.4 11.8 - 14.5 SECONDS INR 1.11 0.01 - 5.99 Comment: Recommended Therapeutic range for Oral Anticoagulant Therapy No anti-coagulation therapy ? Normal Range: ?0.8-1.4 Anti-coagulation therapy ? Low intensity therapy ?2.0-3.0 ? High intensity therapy ?? 2.5-3.5 Critical Value ? Greater than or equal to 6.0 Patients should be monitored for serious bleeding. ?? 01/25/2016 7:09 AM CDT 01/25/2016 7:20 AM CDT Tate Moreno MD LAB BLOOD ORDERABLES Final Resu lt Performing Organization Address [facility] de Phone Number [facility] HISTORICAL RESULTS * aPTT (01/25/2016 7:09 AM CDT) APTT 33 26 - 33 SECONDS 01/25/2016 7:09 AM CDT 01/25/2016 7:20 AM CDT Tate Moreno MD LAB BLOOD ORDERABLES Final Resu lt Performing Organization Address [facility] de Phone Number [facility] HISTORICAL RESULTS * (ABNORMAL) Comprehensive metabolic panel (01/25/2016 7:09 AM CDT) Pathologist [facility] Sodium 143 135 - 145 mmol/L Potassium 3.6 3.3 - 5.1 mmol/L Chloride 102 96 - 108 mmol/L Carbon Dioxide 27 22 - 32 mmol/L Anion Gap 14 7 - 16 Glucose 107(H) 70 - 100 mg/dL BUN 9 8 - 23 mg/dL Creatinine 0.8 0.5 - 1.3 mg/dL 01/25/2016 7:54 AM Snapsheet [facility] [employer] HISTORICAL RESULTS Comment: NOTE: Estimated GFR (Cockroft-Gault) will NOT be calculated unless patient Height and Weight were entered. Also, Kidney Disease Stage (GFR) and Estimated GFR (Cockroft-Gault) will NOT be calculated if Creatinine result is <0.2. Kidney Disease Stage > 90 mL/MIN 01/25/2016 7:54 AM [facility] [employer] [facility] [employer] HISTORICAL RESULTS Comment: NOTE; ??The GFR is an estimated [...] ? Kidney failure or on dialysis @ Est GFR (Cockcroft-G) 106 ml/MIN 01/25/2016 7:54 AM [facility] [employer] [facility] [employer] HISTORICAL RESULTS Comment: Estimated GFR(Cockroft-Gault)is used to calculate patient medication dosage Calcium 9.1 8.8 - 10.2 mg/dL 01/25/2016 7:54 AM [employer] HISTORICAL RESULTS Total Protein 8.1 6.4 - 8.3 g/dL 01/25/2016 7:54 AM [facility] [employer] [facility] HISTORICAL RESULTS Albumin 3.7 3.5 - 5.2 g/dL 01/25/2016 7:54 AM [facility] [employer] [facility] [employer] HISTORICAL RESULTS Globulin 4.4(H) 2.3 - 3.5 gm/dL Albumin/Globulin Ratio 0.8(L) 1.1 - 1.8 01/25/2016 7:54 AM CDT [facility] HISTORICAL RESULTS Total Bilirubin 0.4 0.0 - 1.2 mg/dL AST 13 0 - 40 U/L ALT 9 0 - 41 U/L Alkaline Phosphatase 92 40 - 129 U/L 01/25/2016 7:09 AM CDT 01/25/2016 7:20 AM CDT us Tate Moreno MD LAB BLOOD ORDERABLES Final Resu lt [facility] HISTORICAL RESULTS * (ABNORMAL) CBC with auto differential (01/25/2016 7:09 AM CDT) WBC 11.1(H) 4.6 - 10.2 x10 3/ul RBC 3.87(L) 4.11 - 5.71 x10 6/ul Hemoglobin 12.7(L) 13.0 - 17.0 g/dl Hct 38.0(L) 38.2 - 48.5 % MCV 98.2(H) 80.0 - 97.0 fl MCH 32.8(H) 27.0 - 31.2 pg MCHC 33.4 31.8 - 35.4 g/dl RDW 12.2 11.6 - 14.8 % Plt Count 384 124 - 400 x10 3/ul MPV 9.0 7.4 - 10.4 fl Neut % 81.1 37.0 - 85.0 % Immature Gran % 0.4 0.0 - 3.0 % Lymph % 8.7 5.0 - 45.0 % Randolph % 5.6 3.0 - 15.0 % Eos % 3.4 0.0 - 7.0 % Baso % 0.8 0.0 - 2.0 % Absolute Neuts (auto) 9.0(H) 1.7 - 8.7 x10 3/ul Immature Gran # 0.0 0.0 - 0.3 x10 3/ul Absolute Lymphs (auto) 1.0 0.2 - 4.6 x10 3/ul Absolute Monos (auto) 0.6 0.1 - 1.5 x10 3/ul Absolute Eos (auto) 0.4 0.0 - 0.7 x10 3/ul Absolute Basos (auto) 0.1 0.0 - 0.2 x10 3/ul 01/25/2016 7:09 AM CDT 01/25/2016 7:20 AM CDT us Tate Moreno MD LAB BLOOD ORDERABLES Final Resu lt [facility] HISTORICAL RESULTS * (ABNORMAL) Urinalysis (01/25/2016 12:00 AM CDT) Ur Collection Type INDWELLING CATH Urine Color YELLOW YELLOW Urine Clarity CLEAR CLEAR Urine Glucose (UA) NORMAL NORMAL mg/dL Urine Bilirubin NEGATIVE NEGATIVE mg/dl Urine Ketones NEGATIVE NEGATIVE mg/dL Ur Specific [place] 1.006 1.005 - 1.025 Urine Blood 0.03(H) NEGATIVE mg/dl Urine pH 7.0 5.0 - 8.0 Urine Protein NEGATIVE NEGATIVE mg/dL Urine Urobilinogen NORMAL NORMAL mg/dL Urine Nitrite NEGATIVE NEGATIVE Ur Leukocyte Esterase NEGATIVE NEGATIVE Ian/ul Ur Microscopic Review Not Indicated 01/25/2016 01/25/2016 7:2 1 AM CDT us Tate Moreno MD LAB URINE ORDERABLES Final Resu lt [email or web address] * XR Chest 1 View (01/25/2016 12:00 AM CDT) Anatomical Region Laterality Modality Body, Chest N/A Radiographic Tawanna ging 01/25/2016 Impressions 01/25/2016 7:34 AM CDT ??Normal and unchanged since August 17 THIS IS AN ELECTRONICALLY VERIFIED REPORT 01/25/2016 7:31 AM: ??Leo Dunaway M.D., Ph.D. ?? Leo Dunaway M.D., Ph.D. WM: 07:31 AM 07:31 AM [facility] [EOD] Narrative 01/25/2016 7:34 AM CDT EXAMINATION: ??Chest single view HISTORY: ??Acute onset this morning right-sided weakness, shortness of breath FINDINGS: ??Heart size is within normal limits. ??Lungs are clear. ??Pulmonary vasculature is normal. Procedure Note Provider, MD Mirna - 08/15/2020 EXAMINATION: Chest single view HISTORY: Acute onset this morning right-sided weakness, shortness ofbreath FINDINGS: Heart size is within normal limits. Lungs are clear.Pulmonary vasculature is normal. IMPRESSION: Normal and unchanged since August 17 THIS IS AN ELECTRONICALLY VERIFIED REPORT 01/25/2016 7:31 AM: Leo Dunaway M.D., Ph.D. Leo Dunaway M.D., Ph.D. 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 Automated exposure control was used as a dose optimization technique for this examination. THIS IS AN ELECTRONICALLY VERIFIED REPORT 01/25/2016 7:50 AM: ??Leo Dunaway M.D., Ph.D. ?? Leo Dunaway M.D., Ph.D. WM: 07:50 AM 07:50 AM [facility] [EOD] Narrative 01/25/2016 7:53 AM CDT EXAMINATION: ??CT scan of the head HISTORY: ??Seizures for 1 hour previous CVA, right-sided weakness FINDINGS: ??Today's study is compared to a prior study of September 24 2014. 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 ??There is no evidence of acute intracranial hemorrhage, mass, mass effect or extra-axial fluid collection. ??Ventricular system is normal in size and configuration. ??Larsen-white differentiation is maintained. ??The posterior fossa, orbits and sinuses are normal. Procedure Note Provider, MD Mirna - 08/15/2020 EXAMINATION: CT scan of the head HISTORY: Seizures for 1 hour previous CVA, right-sided weakness FINDINGS: Today's study is compared to a prior study of September 24 2014.There is a large old area of encephalomalacia in the distribution of the leftmiddle cerebral artery. There is no evidence of acute intracranial hemorrhage,mass, mass effect or extra-axial fluid collection. Ventricular system is normalin size and configuration. Larsen-white differentiation is maintained. The posterior fossa, orbits and sinuses are normal. 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 Automated exposure control was used as a dose optimization technique forthis examination. THIS IS AN ELECTRONICALLY VERIFIED REPORT 01/25/2016 7:50 AM: Leo Dunaway M.D., Ph.D. Leo Dunaway M.D., Ph.D. 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 difficile Comment:Germ watcher auto flagging 01/15/2014 01/15/2014 documented as of this encounter
--- OUTSIDE RECORDS SUMMARY | 2024-04-03 17:34 | XMS_ITS | Encounter Summary ---
Author Organization [facility] Healthcare Address [address] [place] [address] Care Team Providers Care Machine Heel Sprayer Name Role Phone Unavailable Primary Care Provider Unavailabl e Encounter Details Date Type Department Care Team (Late st Contact Info) Description 08/18/2015 11:59 AM CDT Hospital Encounter [facility] Shawn Pearson MD [address] [place], [place] [id number] Pneumonia Social History Tobacco Use Types Packs/Day Years Used Date Smoking Tobacco: Never Assessed Sex and Gender Information Value Date Recorded Sex Assigned at Not on file 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 Gender Identity Not on file Sexual Orientation Not on file documented as of this encounter Plan of Treatment Not on file documented as of this encounter Procedures Procedure Name Priority Date/Time Associated Diagnosis Comments XR CHEST PA LATERAL 2 VIEWS Routine 08/18/2015 12:02 PM CDT documented in this encounter Results * XR Chest Pa Lateral 2 Views (08/18/2015 12:02 PM CDT) Anatomical Region Laterality Modality Body, Chest N/A Radiographic Tawanna ging 08/18/2015 12:0 2 PM CDT Impressions 08/23/2015 9:02 AM CDT Limited examination as a portion of the left hemithorax was occluded from the field of view. Increasing alveolar airspace opacity within the left lower lung field likely within the lingula and is concerning for pneumonia. ??Continued follow up until resolution is recommended. THIS IS AN ELECTRONICALLY VERIFIED REPORT 08/23/2015 8:59 AM: ??Uziel Milton M.D. ?? Tanja Kaur:lydia 03:28 PM 03:31 PM [facility] [EOD] Narrative 08/23/2015 9:02 AM CDT RADIOLOGIC EXAMINATION(S): ??CR CHEST 2V CLINICAL HISTORY: ??Pneumonia for follow-up. ??Cough for 1 month COMPARISON: ??Chest radiograph dated July 05, 2015 FINDINGS: ??PA and lateral view of the chest are reviewed. The examination is limited as the portion of the left lower hemithorax is excluded from the field of view on the AP upright view. The cardiac silhouette is within normal limits. ??There is mild calcification of the aortic arch. There is increasing alveolar airspace opacity in the left lower lung field. ?? On the lateral view this is favored to be localized to the lingula. ??The lungs are otherwise clear. ??Pulmonary vascularity is within normal limits. ??No appreciable pneumothorax. Soft tissues and osseous structures are stable. Procedure Note Provider, MD Mirna - 08/15/2020 RADIOLOGIC EXAMINATION(S): CR CHEST 2V CLINICAL HISTORY: Pneumonia for follow-up. Cough for 1 month COMPARISON: Chest radiograph dated July 05, 2015 FINDINGS: PA and lateral view of the chest are reviewed. The examination is limited as the portion of the left lower hemithorax is excluded from the field of view on the AP upright view. The cardiac silhouette is within normal limits. There is mildcalcification of the aortic arch. There is increasing alveolar airspace opacity in the left lower lungfield. On the lateral view this is favored to be localized to the lingula. Thelungs are otherwise clear. Pulmonary vascularity is within normal limits. No appreciable pneumothorax. Soft tissues and osseous structures are stable. IMPRESSION: Limited examination as a portion of the left hemithorax was occluded fromthe field of view. Increasing alveolar airspace opacity within the left lower lung fieldlikely within the lingula and is concerning for pneumonia. Continued follow upuntil resolution is recommended. THIS IS AN ELECTRONICALLY VERIFIED REPORT 08/23/2015 8:59 AM: Uziel Milton M.D. Uziel Milton M.D. JA:lydia 03:28 PM 03:31 PM [facility] [EOD] Shawn Berkowitz MD IMG XR PROCEDURES Final Res ult documented in this encounter Visit Diagnoses Diagnosis Pneumonia Pneumonia, organism unspecified documented in this encounter Additional Health Concerns 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 difficile Comment:Germ watcher auto flagging 01/15/2014 01/15/2014 documented as of this encounter
--- OUTSIDE RECORDS SUMMARY | 2024-04-03 17:34 | XMS_ITS | Encounter Summary ---
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 Historical Provider Final Res ult documented in this encounter Visit Diagnoses Not on filedocumented in this encounter Additional Health Concerns 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 difficile Comment:Germ watcher auto flagging 01/15/2014 01/15/2014 documented as of this encounter Care Teams Occupational Health Rn Relationship Specialty Start Date End Date Shawn Berkowitz MD [address] [place] [address] PCP - General Internal Medicine 08/11/18 documented as of this encounter
--- OUTSIDE RECORDS SUMMARY | 2024-04-03 17:34 | XMS_ITS | Encounter Summary ---
Author Organization [facility] Healthcare Address [address] [place] [address] Care Team Providers Care Banana Loader Name Role Phone Unavailable Primary Care Provider Unavailabl e Encounter Details Date Type Department Care Team (Latest Contact Info) Description 07/01/2015 4:41 PM CDT - 07/05/2015 2:37 PM CDT Hospital Encounter [facility] Watson Yun MD [address] [place] [address] Sepsis (CMS/HCC); Pneumonia; Acute respiratory failure with hypoxia (CMS/HCC); Severe sepsis with septic shock (CODE) ([facility]); Encephalopathy; Hemiplegia and hemiparesis following cerebral infarction affecting right dominant side (HCC); Acute kidney failure (CMS/HCC); Hyperlipidemia; Essential (primary) hypertension; Gastro-esophageal reflux disease without esophagitis; Osteoarthritis; Major depressive disorder, single episode (CMS/HCC); Allergy status to narcotic agent; Tobacco use; Aphasia following cerebral infarction; Obesity; Body mass index (BMI) of 27.0-27.9 in adult; Other sequelae of other cerebrovascular disease; Urinary incontinence; Hypokalemia; Stage II pressure ulcer of sacral region Social History Tobacco Use Types Packs/Day Years Used Date Smoking Tobacco: Never Assessed Sex and Gender Information Value Date Recorded Sex Assigned at Not on file Legal 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 Gender Identity Not on file Sexual Orientation Not on file documented as of this encounter Last Filed Vital Signs Vital Sign Reading Time Taken Comments Blood Pressure 138/68 07/01/2015 9:07 PM CDT Pulse 84 07/01/2015 9:07 PM CDT Temperature 37.1 ??C (98.7 ??F) 07/01/2015 9:07 PM CD T Respiratory Rate - - Oxygen Saturation 94% 07/01/2015 9:07 PM CDT Inhaled Oxygen Concentration - - Weight 85.1 kg (187 lb 9.6 oz) 07/01/2015 9:07 P M CDT Height 175.3 cm (5' 9 ) 07/01/2015 9:07 PM CDT Body Mass Index 27.7 07/01/2015 9:07 PM CDT documented in this encounter Plan of Treatment Not on file documented as of this encounter Procedures Procedure Name Priority Date/Time Associated Diagnosis Comments CBC WITH AUTO DIFFERENTIAL Routine 07/05/2015 7:02 AM CDT PHOSPHORUS Routine 07/05/2015 7:02 AM CDT MAGNESIUM Routine 07/05/2015 7:02 AM CDT COMPREHENSIVE METABOLIC PANEL Routine 07/05/2015 7:02 AM CDT XR CHEST 1 VIEW Routine 07/05/2015 12:00 AM CDT CBC WITH AUTO DIFFERENTIAL Routine 07/04/2015 6:10 AM CDT PHOSPHORUS Routine 07/04/2015 6:10 AM CDT MAGNESIUM Routine 07/04/2015 6:10 AM CDT COMPREHENSIVE METABOLIC PANEL Routine 07/04/2015 6:10 AM CDT CLOSTRIDIUM DIFFICILE ASSAY Routine 07/03/2015 8:45 AM CDT PROCALCITONIN POST-ANTIBIOTIC Routine 07/03/2015 6:15 AM CDT HEMOGRAM WITH MANUAL DIFFERENTIAL Routine 07/03/2015 6:15 AM CDT PHOSPHORUS Routine 07/03/2015 6:14 AM CDT MAGNESIUM Routine 07/03/2015 6:14 AM CDT COMPREHENSIVE METABOLIC PANEL Routine 07/03/2015 6:14 AM CDT HEMOGRAM WITH MANUAL DIFFERENTIAL Routine 07/02/2015 4:40 AM CDT MAGNESIUM Routine 07/02/2015 4:40 AM CDT COMPREHENSIVE METABOLIC PANEL Routine 07/02/2015 4:40 AM CDT B-TYPE NATRIURETIC PEPTIDE Routine 07/02/2015 4:37 AM CDT INFLUENZA A/B ANTIGENS, RAPID Routine 07/02/2015 4:00 AM CDT URINALYSIS AND REFLEX TO MICROSCOPIC AND CULTURE Routine 07/01/2015 8:15 PM CDT STREP PNEUMONIAE AG, URINE Routine 07/01/2015 8:15 PM CDT LEGIONELLA PNEUMOPHILIA ANTIGEN, URINE Routine 07/01/2015 8:15 PM CDT LACTATE Routine 07/01/2015 7:54 PM CDT MYCOPLASMA PNEUMONIAE ANTIBODY, IGM Routine 07/01/2015 7:54 PM CDT ERYTHROCYTE SEDIMENTATION RATE Routine 07/01/2015 7:54 PM CDT CRP (ACUTE PHASE) Routine 07/01/2015 7:5 4 PM CDT IGE Routine 07/01/2015 7:54 PM CDT CORTISOL Routine 07/01/2015 7:54 PM CDT BLOOD GAS WITH LACTATE Routine 6 5:55 PM CDT LACTATE Routine 07/01/2015 5:37 PM CDT INFECTION PREVENTION MRSA ONLY (STAPHYLOCOCCUS AUREUS) PCR Routine 07/01/2015 4:55 PM CDT MICROBIOLOGY SPECIMEN REPORT (CONVERTED) Routine 07/01/2015 3:30 PM CDT LACTATE Routine 07/01/2015 3:30 PM CDT BLOOD GAS W/LYTES & LACTATE Routine 07/01/2015 2:21 PM CDT MICROBIOLOGY SPECIMEN REPORT (CONVERTED) Routine 07/01/2015 2:10 PM CDT PROCALCITONIN PRE-ANTIBIOTIC Routine 07/01/2015 2:10 PM CDT TNI WITH LIPID PANEL Routine 07/01/2015 2:10 PM CDT CBC WITH AUTO DIFFERENTIAL Routine 07/01/2015 2:10 PM CDT APTT Routine 07/01/2015 2:10 PM CDT PROTIME-INR Routine 07/01/2015 2:10 PM CDT COMPREHENSIVE METABOLIC PANEL Routine 07/01/2015 2:10 PM CDT XR CHEST 1 VIEW Routine 07/01/2015 12:00 AM CDT XR CHEST 1 VIEW Routine 07/01/2015 12:00 AM CDT documented in this encounter Results * Magnesium (07/05/2015 7:02 AM CDT) Magnesium 1.6 1.6 - 2.6 mg/dL Comment:Magnesium sulfate th erapy: 3.0-9.1 mg/dL 07/05/2015 7:02 AM CDT 07/05/2015 7:31 AM CDT Dalia Castro MD LAB BLOOD ORDERABLES Final Result [facility] HISTORICAL RESULTS * (ABNORMAL) Comprehensive metabolic panel (07/05/2015 7:02 AM CDT) [facility] Sodium 138 135 - 145 mmol/L Potassium 3.4 3.3 - 5.1 mmol/L Chloride 100 96 - 108 mmol/L Carbon Dioxide 26 22 - 32 mmol/L Anion Gap 12 7 - 16 Glucose 104(H) 70 - 100 mg/dL BUN 12 8 - 23 mg/dL Creatinine 0.9 0.5 - 1.3 mg/dL Comment: NOTE: Estimated [...] or on dialysis @ Est GFR (Cockcroft-G) 94 ml/MIN Calcium 8.8 8.8 - 10.2 mg/dL Total Protein 7.2 6.4 - 8.3 g/dL Albumin 3.1(L) 3.5 - 5.2 g/dL Globulin 4.1(H) 2.3 - 3.5 gm/dL Albumin/Globulin Ratio 0.8(L) 1.1 - 1.8 Total Bilirubin 0.3 0.0 - 1.2 mg/dL AST 18 0 - 40 U/L ALT 22 0 - 41 U/L Alkaline Phosphatase 59 40 - 129 U/L 07/05/2015 7:02 AM CDT 07/05/2015 7:30 AM CDT Dalia Castro MD LAB BLOOD ORDERABLES Final Result [facility] HISTORICAL RESULTS * (ABNORMAL) CBC with auto differential (07/05/2015 7:02 AM CDT) WBC 12.3(H) 4.6 - 10.2 x10 3/ul 07/05/2015 7:39 AM CDT [facility] HISTORICAL RESULTS RBC 3.09(L) 4.11 - 5.71 x10 6/ul 07/05/2015 7:39 AM CDT [facility] Hemoglobin 10.4(L) 13.0 - 17.0 g/dl 07/05/2015 7:39 AM CDT [facility] HISTORICAL RESULTS Hct 30.6(L) 38.2 - 48.5 % 07/05/2015 7:39 AM CDT [facility] HISTORICAL RESULTS MCV 99.0(H) 80.0 - 97.0 fl 07/05/2015 7:39 AM CDT [facility] HISTORICAL RESULTS MCH 33.7(H) 27.0 - 31.2 pg 07/05/2015 7:39 AM CDT [facility] HISTORICAL RESULTS MCHC 34.0 31.8 - 35.4 g/dl 07/05/2015 7:39 AM CDT [facility] HISTORICAL RESULTS RDW 12.6 11.6 - 14.8 % 07/05/2015 7:39 AM CDT [facility] HISTORICAL RESULTS Plt Count 369 124 - 400 x10 3/ul 07/05/2015 7:39 AM CDT [facility] HISTORICAL RESULTS MPV 9.3 7.4 - 10.4 fl 07/05/2015 7:39 AM CDT [facility] HISTORICAL RESULTS Differential Method AUTOMATED DIFF --------- -- 07/05/2015 7:39 AM CDT [facility] HISTORICAL RESULTS Neut % 77.2 37.0 - 85.0 % 07/05/2015 7:39 AM CDT [facility] HISTORICAL RESULTS Immature Gran % 1.4 0.0 - 3.0 % 07/05/2015 7:39 AM CDT [facility] HISTORICAL RESULTS Lymph % 12.1 5.0 - 45.0 % 07/05/2015 7:39 AM CDT [facility] HISTORICAL RESULTS Simpson % 4.1 3.0 - 15.0 % 07/05/2015 7:39 AM CDT [facility] HISTORICAL RESULTS Eos % 4.6 0.0 - 7.0 % 07/05/2015 7:39 AM CDT [facility] HISTORICAL RESULTS Baso % 0.6 0.0 - 2.0 % ABSOLUTE COUNTS ABSOLUTE COUNTS --------- -- Absolute Neuts (auto) 9.5(H) 1.7 - 8.7 x10 3/ul Immature Gran # 0.2 0.0 - 0.3 x10 3/ul Absolute Lymphs (auto) 1.5 0.2 - 4.6 x10 3/ul Absolute Monos (auto) 0.5 0.1 - 1.5 x10 3/ul Absolute Eos (auto) 0.6 0.0 - 0.7 x10 3/ul Absolute Basos (auto) 0.1 0.0 - 0.2 x10 3/ul 07/05/2015 7:02 AM CDT 07/05/2015 7:30 AM CDT us Tracie Hinds LAB BLOOD ORDERABLES Final Res ult [facility] HISTORICAL RESULTS * Phosphorus (07/05/2015 7:02 AM CDT) Phosphorus 4.5 2.5 - 4.5 mg/dL 07/05/2015 7:02 AM CDT 07/05/2015 7:30 AM CDT us Dalia Castro MD LAB BLOOD ORDERABLES Final Result [facility] HISTORICAL RESULTS * XR Chest 1 View (07/05/2015 12:00 AM CDT) Anatomical Region Laterality Modality Body, Chest N/A Radiographic Tawanna ging 07/05/2015 Impressions 07/05/2015 9:28 AM CDT ??Interval improvement with persistent but diminished bibasilar air space opacities. THIS IS AN ELECTRONICALLY VERIFIED REPORT 07/05/2015 9:25 AM: ??Theo Howard M.D. ?? Theo Howard M.D. CH:jasmin 09:25 AM 09:25 AM BM [EOD] Narrative 07/05/2015 9:28 AM CDT EXAMINATION: ??AP chest. HISTORY: ??Shortness of breath since admission 07/01/2015, follow-up of pneumonia. TECHNIQUE: ??AP upright chest. COMPARISON: ??07/01/2015. FINDINGS: ??Right IJ line is unchanged with the tip over the lower SVC. ??There are low lung volumes. ??Slight improved aeration is seen with persistent air space opacities in the lung bases. ??There is no pleural effusion or pneumothorax seen. ??No acute osseous abnormality is identified. Procedure Note Provider, MD Mirna - 08/15/2020 EXAMINATION: AP chest. HISTORY: Shortness of breath since admission 07/01/2015, follow-up ofpneumonia. TECHNIQUE: AP upright chest. COMPARISON: 07/01/2015. FINDINGS: Right IJ line is unchanged with the tip over the lower SVC.There are low lung volumes. Slight improved aeration is seen with persistentair space opacities in the lung bases. There is no pleural effusion or pneumothorax seen. No acute osseous abnormality is identified. IMPRESSION: Interval improvement with persistent but diminished bibasilarair space opacities. THIS IS AN ELECTRONICALLY VERIFIED REPORT 07/05/2015 9:25 AM: Theo Howard M.D. Theo Howard M.D. CH:jasmin 09:25 AM 09:25 AM [facility] [EOD] Kim COLUNGA IMG XR PROCEDURES Final Resu lt * (ABNORMAL) Comprehensive metabolic panel (07/04/2015 6:10 AM CDT) Sodium 144 135 - 145 mmol/L 07/04/2015 6:59 AM T [employer] HISTORICAL RESULTS Potassium 3.8 3.3 - 5.1 mmol/L 07/04/2015 6:59 AM [facility] [employer] HISTORICAL RESULTS Chloride 105 96 - 108 mmol/L 07/04/2015 6:59 AM [facility]IST[facility] RESULTS Carbon Dioxide 28 22 - 32 mmol/L 07/04/2015 6:59 AM [facility] HISTORICAL RESULTS Anion Gap 11 7 - 16 07/04/2015 6:59 AM [facility] [employer] [facility] HISTORICAL RESULTS Glucose 104(H) 70 - 100 mg/dL 07/04/2015 6:59 AM T [facility] HISTORICAL RESULTS BUN 12 8 - 23 mg/dL 07/04/2015 6:59 AM [facility] HISTORICAL RESULTS Creatinine 0.9 0.5 - 1.3 mg/dL 07/04/2015 6:59 AM [facility] HISTORICAL RESULTS Comment: NOTE: Estimated GFR (Cockroft-Gault) will NOT be calculated unless patient Height and Weight were entered. Also, Kidney Disease Stage (GFR) and Estimated GFR (Cockroft-Gault) will NOT be calculated if Creatinine result is <0.2. Kidney Disease Stage > 90 mL/MIN 07/04/2015 6:59 AM [facility] HISTORICAL RESULTS Comment: NOTE; ??The GFR is [...] or on dialysis @ Est GFR (Cockcroft-G) 94 ml/MIN 07/04/2015 6:59 AM [facility] [employer] HISTORICAL RESULTS Calcium 9.1 8.8 - 10.2 mg/dL 07/04/2015 6:59 AM [facility] [employer] HISTORICAL RESULTS Total Protein 7.0 6.4 - 8.3 g/dL 07/04/2015 6:59 AM [facility] [employer] HISTORICAL RESULTS Albumin 3.0(L) 3.5 - 5.2 g/dL 07/04/2015 6:59 AM [facility] [employer] HISTORICAL RESULTS Globulin 4.0(H) 2.3 - 3.5 gm/dL 07/04/2015 6:59 AM [facility] [employer] HISTORICAL RESULTS Albumin/Globulin Ratio 0.8(L) 1.1 - 1.8 07/04/2015 6:59 AM [facility] [employer] HISTORICAL RESULTS Total Bilirubin 0.3 0.0 - 1.2 mg/dL 07/04/2015 6:59 AM [facility] [employer] HISTORICAL RESULTS AST 20 0 - 40 U/L 07/04/2015 6:59 AM [facility] [employer] HISTORICAL RESULTS ALT 21 0 - 41 U/L 07/04/2015 6:59 AM [facility] [employer] HISTORICAL RESULTS Alkaline Phosphatase 59 40 - 129 U/L 07/04/2015 6:59 AM [facility] [employer] HISTORICAL RESULTS Comment:Results reviewed 07/04/2015 6:10 AM CDT 07/04/2015 6:29 AM CDT [facility] LAB BLOOD ORDERABLES Final Result [facility] HISTORICAL RESULTS * (ABNORMAL) CBC with auto differential (07/04/2015 6:10 AM CDT) WBC 10.2 4.6 - 10.2 x10 3/ul 07/04/2015 6:42 AM CDT [facility] [employer] HISTORICAL RESULTS RBC 2.97(L) 4.11 - 5.71 x10 6/ul 07/04/2015 6:42 AM CDT [facility] [employer] HISTORICAL RESULTS Hemoglobin 9.8(L) 13.0 - 17.0 g/dl 07/04/2015 6:42 AM CDT [facility] [employer] HISTORICAL RESULTS Hct 29.6(L) 38.2 - 48.5 % 07/04/2015 6:42 AM CDT [facility] [employer] HISTORICAL RESULTS MCV 99.7(H) 80.0 - 97.0 fl 07/04/2015 6:42 AM CDT [facility] [employer] HISTORICAL RESULTS MCH 33.0(H) 27.0 - 31.2 pg 07/04/2015 6:42 AM CDT [facility] [employer] HISTORICAL RESULTS MCHC 33.1 31.8 - 35.4 g/dl 07/04/2015 6:42 AM CDT [facility] [employer] HISTORICAL RESULTS RDW 12.6 11.6 - 14.8 % 07/04/2015 6:42 AM CDT [facility] [employer] HISTORICAL RESULTS Plt Count 313 124 - 400 x10 3/ul 07/04/2015 6:42 AM CDT [facility] [employer] HISTORICAL RESULTS MPV 9.2 7.4 - 10.4 fl 07/04/2015 6:42 AM CDT [facility] [employer] HISTORICAL RESULTS Differential Method AUTOMATED DIFF --------- -- 07/04/2015 6:42 AM CDT [facility] [employer] HISTORICAL RESULTS Neut % 72.7 37.0 - 85.0 % 07/04/2015 6:42 AM CDT [facility] [employer] HISTORICAL RESULTS Immature Gran % 0.9 0.0 - 3.0 % 07/04/2015 6:42 AM CDT [facility] [employer] [facility] HISTORICAL RESULTS Lymph % 15.4 5.0 - 45.0 % Simpson % 5.5 3.0 - 15.0 % Eos % 5.0 0.0 - 7.0 % Baso % 0.5 0.0 - 2.0 % ABSOLUTE COUNTS ABSOLUTE COUNTS --------- -- Absolute Neuts (auto) 7.5 1.7 - 8.7 x10 3/ul Immature Gran # 0.1 0.0 - 0.3 x10 3/ul Absolute Lymphs (auto) 1.6 0.2 - 4.6 x10 3/ul Absolute Monos (auto) 0.6 0.1 - 1.5 x10 3/ul Absolute Eos (auto) 0.5 0.0 - 0.7 x10 3/ul Absolute Basos (auto) 0.1 0.0 - 0.2 x10 3/ul 07/04/2015 6:10 AM CDT 07/04/2015 6:29 AM CDT us Tracie Hinds LAB BLOOD ORDERABLES Final Res ult [facility] HISTORICAL RESULTS * Phosphorus (07/04/2015 6:10 AM CDT) Phosphorus 3.5 2.5 - 4.5 mg/dL 07/04/2015 6:10 AM CDT 07/04/2015 6:29 AM CDT Dalia Castro MD LAB BLOOD ORDERABLES Final Result Performing Organization Address [facility] de Phone Number [facility] HISTORICAL RESULTS * Magnesium (07/04/2015 6:10 AM CDT) Magnesium 1.6 1.6 - 2.6 mg/dL Comment:Magnesium sulfate th erapy: 3.0-9.1 mg/dL 07/04/2015 6:10 AM CDT 07/04/2015 6:29 AM CDT Dalia Castro MD LAB BLOOD ORDERABLES Final Result Performing Organization Address [facility] Number [facility] HISTORICAL RESULTS * Clostridium difficile assay (07/03/2015 8:45 AM CDT) C, difficile (LAMP) NEGATIVE NEGATIVE Comment: Negative test: C. difficile molecular tests are highly sensitive. Empiric therapy for patients with diarrhea and negative C. difficile test should be avoided. Submission of more than one specimen within 7 days is not recommended. Molecular tests for C. difficile are highly sensitive and a negative result does not need to be confirmed by a second specimen. 07/03/2015 8:45 AM CDT 07/03/2015 12:06 PM CDT Narrative [facility] HISTORICAL RESULTS - 07/03/2015 3:10 PM CDT Collected By af Tracie Hinds LAB MICROBIOLOGY - GENERAL ORD ERABLES Final Result Performing Organization Address [facility] de Phone Number [facility] HISTORICAL RESULTS * (ABNORMAL) PROCALCITONIN Post-antibiotic (07/03/2015 6:15 AM CDT) PROCALCITONIN Post-antibiotic 2.96(H) 0 - 0.24 ng/mL 07/03/2015 8:48 AM CDT [employer] HISTORICAL RESULTS Comment: Guidelines for use with Community Acquired Pneumonia(CAP)-ONLY: ?? <0.1 ng/mL or decrease by >90% from initial: ?Cessation of antibiotics is STRONGLY encouraged ?? 0.1-0.24 ng/mL or decrease by >80% from initial: ?Cessation of antibiotics is encouraged ?? 0.25-0.5 ng/mL: Cessation of antibiotics is discouraged ?? >0.5 ng/mL: Cessation of antibiotics is STRONGLY discouraged 07/03/2015 6:15 AM CDT 07/03/2015 6:24 AM CDT Alli Paula DO LAB BLOOD ORDERABLES Final Result [employer] HISTORICAL RESULTS * (ABNORMAL) Hemogram with manual differential (07/03/2015 6:15 AM CDT) WBC 13.5(H) 4.6 - 10.2 x10 3/ul 07/03/2015 6:37 AM CDT [employer] HISTORICAL RESULTS RBC 3.11(L) 4.11 - 5.71 x10 6/ul 07/03/2015 6:37 AM T [employer] HISTORICAL RESULTS Hemoglobin 10.5(L) 13.0 - 17.0 g/dl 07/03/2015 6:37 AM T [employer] HISTORICAL RESULTS Hct 30.6(L) 38.2 - 48.5 % 07/03/2015 6:37 AM T [employer] HISTORICAL RESULTS MCV 98.4(H) 80.0 - 97.0 fl 07/03/2015 6:37 AM CDT [employer] HISTORICAL RESULTS MCH 33.8(H) 27.0 - 31.2 pg 07/03/2015 6:37 AM T [employer] HISTORICAL RESULTS MCHC 34.3 31.8 - 35.4 g/dl 07/03/2015 6:37 AM T [employer] HISTORICAL RESULTS RDW 12.7 11.6 - 14.8 % 07/03/2015 6:37 AM T [employer] HISTORICAL RESULTS Plt Count 329 124 - 400 x10 3/ul 07/03/2015 6:37 AM [facility] HISTORICAL RESULTS MPV 9.4 7.4 - 10.4 fl 07/03/2015 6:37 AM [facility] HISTORICAL RESULTS MANUAL DIFF MANUAL DIFF -------- --- 07/03/2015 7:20 AM [facility] HISTORICAL RESULTS Neutrophils % (Manual) 74 37 - 80 % 07/03/2015 7:20 AM [facility] [employer] [facility] HISTORICAL RESULTS Lymphocytes % (Manual) 16 10 - 51 % 07/03/2015 7:20 AM [employer] [employer] [facility] HISTORICAL RESULTS Monocytes % (Manual) 6 0 - 12 % 07/03/2015 7:20 AM [facility] [employer] [facility] HISTORICAL RESULTS Eosinophils % (Manual) 4 0 - 7 % 07/03/2015 7:20 AM [facility] [employer] [facility] HISTORICAL RESULTS ABSOLUTE COUNTS ABSOLUTE COUNTS -------- --- 07/03/2015 7:20 AM Yeah[facility] [employer] [facility] HISTORICAL RESULTS Abs Neuts cells/mm3 9990 /ul 07/03/2015 7:20 AM Yeah[facility] [employer] [facility] HISTORICAL RESULTS Absolute Neutrophils 10.0(H) 1.7 - 8.7 x10 3/ul 07/03/2015 7:20 AM [facility] [employer] [facility] HISTORICAL RESULTS Absolute Lymphocytes 2.2 0.2 - 4.6 x10 3/ul 07/03/2015 7:20 AM [facility] HISTORICAL RESULTS Absolute Monocytes 0.8 0.1 - 1.5 x10 3/ul 07/03/2015 7:20 AM [facility] HISTORICAL RESULTS Absolute Eosinophils 0.5 0.0 - 0.7 x10 3/ul 07/03/2015 7:20 AM [facility] HISTORICAL RESULTS Platelet Evaluation AGREE AGREE 07/03/2015 7:20 AM [facility] [employer] [facility] HISTORICAL RESULTS Comment:Slide review of plat elets correlates with instrument count. Polychromasia 1+ 07/03/2015 7:20 AM [facility] [employer] [facility] HISTORICAL RESULTS Poikilocytosis 2+ 07/03/2015 7:20 AM [facility] [employer] [facility] HISTORICAL RESULTS 07/03/2015 6:15 AM CDT 07/03/2015 6:24 AM CDT Watson Garcia MD LAB BLOOD ORDERABLES F inal Result Performing Organization Address [facility] Co de Phone Number [facility] HISTORICAL RESULTS * Phosphorus (07/03/2015 6:14 AM CDT) Phosphorus 3.1 2.5 - 4.5 mg/dL 07/03/2015 6:14 AM CDT 07/03/2015 6:24 AM CDT Dalia Castro MD LAB BLOOD ORDERABLES Final Result Performing Organization Address [facility] Phone Number [facility] HISTORICAL RESULTS * Magnesium (07/03/2015 6:14 AM CDT) Magnesium 1.6 1.6 - 2.6 mg/dL Comment:Magnesium sulfate th erapy: 3.0-9.1 mg/dL 07/03/2015 6:14 AM CDT 07/03/2015 6:24 AM CDT Dalia Castro MD LAB BLOOD ORDERABLES Final Result Performing Organization Address [facility] de Phone Number [facility] HISTORICAL RESULTS * (ABNORMAL) Comprehensive metabolic panel (07/03/2015 6:14 AM CDT) Sodium 143 135 - 145 mmol/L Potassium 3.4 3.3 - 5.1 mmol/L Chloride 102 96 - 108 mmol/L Carbon Dioxide 29 22 - 32 mmol/L Anion Gap 12 7 - 16 Glucose 120(H) 70 - 100 mg/dL 07/03/2015 7:08 AM [facility] HISTORICAL RESULTS BUN 12 8 - 23 mg/dL Creatinine 0.9 0.5 - 1.3 mg/dL Comment: NOTE: Estimated [...] or on dialysis @ Est GFR (Cockcroft-G) 94 ml/MIN 07/03/2015 7:08 AM [facility] HISTORICAL RESULTS Calcium 9.0 8.8 - 10.2 mg/dL 07/03/2015 7:08 AM [facility] HISTORICAL RESULTS Total Protein 7.6 6.4 - 8.3 g/dL 07/03/2015 7:08 AM [employer] [facility] HISTORICAL RESULTS Albumin 3.3(L) 3.5 - 5.2 g/dL Globulin 4.3(H) 2.3 - 3.5 gm/dL Albumin/Globulin Ratio 0.8(L) 1.1 - 1.8 Total Bilirubin 0.4 0.0 - 1.2 mg/dL AST 24 0 - 40 U/L ALT 15 0 - 41 U/L Alkaline Phosphatase 153(H) 40 - 129 U/L Comment:Results reviewed 07/03/2015 6:14 AM CDT 07/03/2015 6:24 AM CDT us Watson Garcia MD LAB BLOOD ORDERABLES F inal Result [facility] HISTORICAL RESULTS * Magnesium (07/02/2015 4:40 AM CDT) [facility] Magnesium 1.7 1.6 - 2.6 mg/dL Comment:Magnesium sulfate th erapy: 3.0-9.1 mg/dL 07/02/2015 4:40 AM CDT 07/02/2015 4:43 AM CDT Narrative [facility] HISTORICAL RESULTS - 07/02/2015 5:09 AM CDT Line Draw by RN ?? us Dalia Castro MD LAB BLOOD ORDERABLES Final Result [facility] HISTORICAL RESULTS * (ABNORMAL) Comprehensive metabolic panel (07/02/2015 4:40 AM CDT) [facility] Sodium 142 135 - 145 mmol/L Potassium 3.2(L) 3.3 - 5.1 mmol/L Chloride 101 96 - 108 mmol/L Carbon Dioxide 29 22 - 32 mmol/L Anion Gap 12 7 - 16 Glucose 117(H) 70 - 100 mg/dL BUN 15 8 - 23 mg/dL Creatinine 0.9 0.5 - 1.3 mg/dL Comment: NOTE: Estimated [...] or on dialysis @ Est GFR (Cockcroft-G) 94 ml/MIN Calcium 8.2(L) 8.8 - 10.2 mg/dL Total Protein 6.7 6.4 - 8.3 g/dL Albumin 3.0(L) 3.5 - 5.2 g/dL Globulin 3.7(H) 2.3 - 3.5 gm/dL Albumin/Globulin Ratio 0.8(L) 1.1 - 1.8 Total Bilirubin 0.6 0.0 - 1.2 mg/dL AST 14 0 - 40 U/L ALT 10 0 - 41 U/L Alkaline Phosphatase 61 40 - 129 U/L 07/02/2015 4:40 AM CDT 07/02/2015 4:43 AM CDT Narrative [facility] HISTORICAL RESULTS - 07/02/2015 5:09 AM CDT Line Draw by RN ?? us Watson Garcia MD LAB BLOOD ORDERABLES F inal Result [facility] HISTORICAL RESULTS * (ABNORMAL) Hemogram with manual differential (07/02/2015 4:40 AM CDT) Pathologist [facility] WBC 15.4(H) 4.6 - 10.2 x10 3/ul 07/02/2015 4:52 AM CDT [facility] [employer] HISTORICAL RESULTS RBC 3.03(L) 4.11 - 5.71 x10 6/ul 07/02/2015 4:52 AM CDT [facility] Hemoglobin 10.3(L) 13.0 - 17.0 g/dl 07/02/2015 4:52 AM CDT [facility] [employer] HISTORICAL RESULTS Hct 30.0(L) 38.2 - 48.5 % 07/02/2015 4:52 AM CDT [facility] [employer] [facility] HISTORICAL RESULTS MCV 99.0(H) 80.0 - 97.0 fl 07/02/2015 4:52 AM CDT [facility] [employer] [facility] HISTORICAL RESULTS MCH 34.0(H) 27.0 - 31.2 pg 07/02/2015 4:52 AM CDT [facility] [employer] [facility] HISTORICAL RESULTS MCHC 34.3 31.8 - 35.4 g/dl 07/02/2015 4:52 AM T [facility] [employer] HISTORICAL RESULTS RDW 12.6 11.6 - 14.8 % 07/02/2015 4:52 AM CDT [facility] [employer] HISTORICAL RESULTS Plt Count 293 124 - 400 x10 3/ul 07/02/2015 4:52 AM CDT [facility] [employer] HISTORICAL RESULTS MPV 9.6 7.4 - 10.4 fl 07/02/2015 4:52 AM CDT [facility] [employer] HISTORICAL RESULTS MANUAL DIFF MANUAL DIFF --------- -- 07/02/2015 5:25 AM CDT [facility] [employer] HISTORICAL RESULTS Neutrophils % (Manual) 88(H) 37 - 80 % 07/02/2015 5:25 AM CDT [facility] [employer] HISTORICAL RESULTS Lymphocytes % (Manual) 5(L) 10 - 51 % 07/02/2015 5:25 AM CDT [facility] [employer] HISTORICAL RESULTS Monocytes % (Manual) 7 0 - 12 % 07/02/2015 5:25 AM CDT [facility] [employer] [facility] HISTORICAL RESULTS ABSOLUTE COUNTS ABSOLUTE COUNTS --------- -- 07/02/2015 5:25 AM CDT [facility] [employer] [facility] HISTORICAL RESULTS Abs Neuts cells/mm3 00201 /ul 07/02/2015 5:25 AM CDT [facility] HISTORICAL RESULTS Absolute Neutrophils 13.6(H) 1.7 - 8.7 x10 3/ul Absolute Lymphocytes 0.8 0.2 - 4.6 x10 3/ul Absolute Monocytes 1.1 0.1 - 1.5 x10 3/ul Platelet Evaluation AGREE AGREE Comment:Slide review of plat elets correlates with instrument count. 07/02/2015 4:40 AM CDT 07/02/2015 4:43 AM CDT [facility] HISTORICAL RESULTS - 07/02/2015 5:25 AM CDT Line Draw by RN ?? Watson Garcia MD LAB BLOOD ORDERABLES F inal Result Performing Organization Address [facility]/ZIP Co de Phone Number [facility] HISTORICAL RESULTS * (ABNORMAL) B-type natriuretic peptide (07/02/2015 4:37 AM CDT) [facility] Signature B-Natriuretic Peptide 168(H) 0 - 100 pg/mL Comment: B Natriutetic Peptide METHOD: ??Siemens Centaur XP using JR. Decision threshold of 100 pg/mL has been demonstrated to provide the maximal combination of sensitivity, specificity, and predictive value for the diagnosis of congestive heart failure (CHF). ??Virtually all patients with no evidence of CHF have BNP values <100 pg/mL. ?? NOTE: ??Nesiritide (Natrecor) interferes with the BNP assay. BNP result will be invalid if drawn within 2 hours of bolus or infusion of nesiritide. 07/02/2015 4:37 AM CDT 07/02/2015 4:40 AM CDT [facility] HISTORICAL RESULTS - 07/02/2015 9:04 AM CDT Dalia Castro MD LAB BLOOD ORDERABLES Final Result Performing Organization Address [facility] de Phone Number [facility] HISTORICAL RESULTS * Influenza A/B antigens, rapid (07/02/2015 4:00 AM CDT) [facility] Influenza A Ag NEGATIVE NEGATIVE Influenza B Ag NEGATIVE NEGATIVE Comment: A NEGATIVE RESULT DOES NOT ELIMINATE THE POSSIBILITY OF AN ?? INFLUENZA A OR B INFECTION. ??INADEQUATE SPECIMEN COLLECTION ?? OR IMPROPER SAMPLE HANDLING/TRANSPORT, OR LOW LEVELS OF ?? VIRAL SHEDDING MAY YIELD A FALSE NEGATIVE RESULT. 07/02/2015 4:00 AM CDT 07/02/2015 4:20 AM CDT Narrative [facility] HISTORICAL RESULTS - 07/02/2015 4:38 AM CDT Dalia Castro MD LAB MICROBIOLOGY - GENERAL ORDERABLES Final Result Performing Organization Address [facility] de Phone Number [facility] HISTORICAL RESULTS * (ABNORMAL) Urinalysis reflex to microscopic and culture (07/01/2015 8:15 PM CDT) [facility] Ur Collection Type INDWELLING CATH Ur Culture Indicated? C&S NOT INDICATED Urine Color LAKE YELLOW Urine Clarity Slightly-Clou dy CLEAR Urine Glucose (UA) NORMAL NORMAL mg/dL Urine Bilirubin NEGATIVE NEGATIVE mg/dl Urine Ketones NEGATIVE NEGATIVE mg/dL Ur Specific Waldron 1.020 1.005 - 1.025 Urine Blood 0.2(H) NEGATIVE mg/dl Urine pH 5.0 5.0 - 8.0 Urine Protein NEGATIVE NEGATIVE mg/dL Urine Urobilinogen 2(H) NORMAL mg/dL Urine Nitrite NEGATIVE NEGATIVE Ur Leukocyte Esterase NEGATIVE NEGATIVE Ian/ul Ur Microscopic Review Indicated or Ordered Urine RBC 12 0 - 2 /HPF Urine WBC 3 0 - 2 /HPF Urine Mucus RARE /LPF Ur Squamous Epith Cells Rare /HPF Hyaline Casts 29 0 - 2 /LPF 07/01/2015 8:15 PM CDT 07/01/2015 8:40 PM CDT [facility] HISTORICAL RESULTS - 07/01/2015 9:17 PM CDT Alli Puala DO LAB MICROBIOLOGY - GENERAL ORDERABLES Final Result [facility] HISTORICAL RESULTS * (ABNORMAL) Strep pneumoniae antigen, urine (07/01/2015 8:15 PM CDT) Ur Strep pneumoniae Ag POSITIVE( H) NEGATIVE 07/01/2015 8:15 PM CDT 07/01/2015 8:40 PM CDT [facility] HISTORICAL RESULTS - 07/01/2015 9:05 PM CDT Collected By rmd ?? Urine collection method Indwelling catheter Dalia Castro MD LAB MICROBIOLOGY - GENERAL ORDERABLES Final Result Performing Organization Address [facility] de Phone Number [facility] HISTORICAL RESULTS * Legionella pneumophilia antigen, urine (07/01/2015 8:15 PM CDT) URINE LEGIONELLA PNEUMO AG Negative Negative Comment: Sample is negative for the presence of L. pneumophila ?? serogroup 1 antigen in urine, suggesting no recent or ?? current infection. Legionnaires' Disease cannot be ruled ?? out since other serogroups and species may also cause ?? disease. ?? INTERPRETIVE INFORMATION: Legionella pneumophila Antigen, ?? Urine ?? This assay detects Legionella pneumophila serogroup one (1) ?? antigen. ?? Performed by [facility], ?? [address] [place] [id number] ?? [email or web address], Curly Knapp MD, Lab. Director ?? 07/01/2015 8:15 PM CDT 07/01/2015 8:40 PM CDT Narrative [facility] HISTORICAL RESULTS - 07/03/2015 4:39 PM CDT Collected By:d ?? Urine collection method Indwelling catheter Dalia Castro MD LAB MICROBIOLOGY - GENERAL ORDERABLES Final Result Performing Organization Address [facility] de Phone Number [facility] HISTORICAL RESULTS * Cortisol (07/01/2015 7:54 PM CDT) Cortisol 22.0 ug/dL Comment: CORTISOL Reference Ranges Morning hours ?? 7 - 10 AM: ??6.2 - 19.4 ug/dL Afternoon hours 4 - 8 PM: ?? 2.3 - 11.9 ug/dL 07/01/2015 7:54 PM CDT 07/01/2015 7:57 PM CDT Dalia Castro MD LAB BLOOD ORDERABLES Final Result Performing Organization Address [facility] de Phone Number [facility] HISTORICAL RESULTS * (ABNORMAL) Erythrocyte sedimentation rate (07/01/2015 7:54 PM CDT) [facility] ESR 124(H) 0 - 10 mm/hr 07/01/2015 7:54 PM CDT 07/01/2015 7:57 PM CDT Dalia Castro MD LAB BLOOD ORDERABLES Final Result Performing Organization Address [facility] Phone Number [facility] HISTORICAL RESULTS * Mycoplasma pneumoniae antibody, IgM (07/01/2015 7:54 PM CDT) [facility] M. pneumoniae IgM NEGATIVE NEGATIVE 07/01/2015 7:54 PM CDT 07/01/2015 7:57 PM CDT Dalia Castro MD LAB BLOOD ORDERABLES Final Result Performing Organization Address [facility] Phone Number [facility] HISTORICAL RESULTS * (ABNORMAL) IgE (07/01/2015 7:54 PM CDT) [facility] IgE 147(H) 0 - 100 IU/mL 07/01/2015 7:54 PM CDT 07/01/2015 7:57 PM CDT Dalia Castro MD LAB BLOOD ORDERABLES Final Result Performing Organization Address [facility] Phone Number [facility] HISTORICAL RESULTS * (ABNORMAL) CRP (acute phase) (07/01/2015 7:54 PM CDT) [facility] C-Reactive Protein 248.7(H) 0.0 - 4.9 mg/L 07/01/2015 7:54 PM CDT 07/01/2015 7:57 PM CDT us Dalia Castro MD LAB BLOOD ORDERABLES Final Result Performing Organization Address [facility]/State/ZIP Co de Phone Number [facility] HISTORICAL RESULTS * Lactate (07/01/2015 7:54 PM CDT) L-Lactate 1.4 mmol/L Comment:Lactate Reference Ra nge: 0.5 - 2.2 mmol/L 07/01/2015 7:54 PM CDT 07/01/2015 7:57 PM CDT Watson Garcia MD LAB BLOOD ORDERABLES F inal Result Performing Organization Address [facility] Co de Phone Number [facility] HISTORICAL RESULTS * (ABNORMAL) Blood gas with lactate (07/01/2015 5:55 PM CDT) Specimen Type ARTERIAL Puncture Site LR Patient Temperature 37 C 06/30 6:19 PM [facility] HISTORICAL RESULTS pH 7.438 7.350 - 7.450 pCO2 43.7 34.0 - 45.0 mmHg pO2 60.9(L) 79.0 - 87.0 mmHg HCO3 29.1(H) 22.0 - 26.0 mmol/L Total CO2 30.4(H) 26.0 - 28.0 mmol/L Base Excess 4.8(H) -2.0 - 2.0 mmol/L Hemoglobin 10.5(L) 13.5 - 18.0 g/dL O2 Saturation 90.9(L) >=95.0 % ABG Carboxyhemoglobin 1.9 <=3.0 % ABG Methemoglobin 1.1 0.4 - 1.5 % ABG O2 Content 13.4(L) 17.6 - 24.3 Vol % Lactate (BLOOD GAS) 1.9(H) 0.4 - 0.8 mEq/L A-a O2 Difference 164.1(H) <=10.0 016 6:19 PM [facility] HISTORICAL RESULTS a/A Ratio 0.3(L) >=0.8 O2 Delivery Device VENTI MASK 2015 6:19 PM [facility] HISTORICAL RESULTS FiO2 40.0 % BG Specimen Comment ER-3 06/30 6:19 PM T [facility] HISTORICAL RESULTS Audio Production Engineer ID [id number] 07/01/2015 5:55 PM CDT 07/01/2015 6:10 PM T Narrative [facility] HISTORICAL RESULTS - 07/01/2015 6:19 PM CDT Conditions Oxygen ?? Source Arterial us Watson Garcia MD LAB BLOOD ORDERABLES F inal Result [facility] HISTORICAL RESULTS * (ABNORMAL) Lactate (07/01/2015 5:37 PM CDT) L-Lactate 2.4(HH) mmol/L Comment: CRITICAL VALUE CALLED and REPEATED. ?? at:1817 07/01/15 by:Apurva Hamlin to:RN CHLOE GAGE ?? Lactate Reference Range: 0.5 - 2.2 mmol/L 07/01/2015 5:37 PM CDT 07/01/2015 5:44 PM CDT Narrative [facility] HISTORICAL RESULTS - 07/01/2015 6:19 PM CDT us Watson Garcia MD LAB BLOOD ORDERABLES F inal Result Performing Organization Address [facility]/ZIP Co de Phone Number [facility] HISTORICAL RESULTS * MRSA PCR, surveillance (07/01/2015 4:55 PM CDT) [facility] MRSA Surveill Initial MRSA NEGATIVE NEGATIVE Comment:MRSA target DNA sequ ences are not detected. 07/01/2015 4:55 PM CDT 07/01/2015 5:12 PM CDT [facility] HISTORICAL RESULTS - 07/01/2015 6:25 PM CDT Collected By us Alli Paula DO LAB MICROBIOLOGY - GENERAL ORDERABLES Final Result [facility] HISTORICAL RESULTS * Microbiology Specimen Report (Converted) (07/01/2015 3:30 PM CDT) 07/01/2015 3:30 PM CDT 07/01/2015 3:35 PM CDT [facility] HISTORICAL RESULTS - 07/01/2015 3:30 PM CDT Microbiology Specimen Report (Converted) SPECIMEN [id number] ?? COLLECTED: 2015-07-01 15:30:00 [id number] ?? REQ#: [id number] REQUESTING DR: Alli Paula DO ?? SOURCE: BLOOD ?? SP DESC: COMMENT: LARM BC Draw ? LHAND BC Draw ?? --- PROCEDURE --- ?--- RESULT --- ?? CULTURE BLOOD ADULT (SET OF 2) ??(Final) ??- ??Performed at [facility] ?* NO GROWTH DAY 5 - [facility] ? [address] ? [place] [address] ? Tate Novak MD Procedure Note 06/20/2018 Microbiology Specimen Report (Converted) SPECIMEN [id number] COLLECTED: 2015-07-01 15:30:00 [id number] REQ#:[id number] REQUESTING DR: Alli Paula DO SOURCE: BLOOD SP DESC: COMMENT: LARM BC Draw LHAND BC Draw --- PROCEDURE --- --- RESULT --- CULTURE BLOOD ADULT (SET OF 2) (Final) - Performed at [facility] * NO GROWTH DAY 5 - [facility] [address] [place] [address] Tate Novak MD us Alli Paula DO LAB BLOOD ORDERABLES Final Result [facility] HISTORICAL RESULTS * (ABNORMAL) Lactate (07/01/2015 3:30 PM CDT) [facility] L-Lactate 3.6(HH) mmol/L Comment: CRITICAL VALUE CALLED and REPEATED. ?? at:1601 07/01/15 by:Apurva Hamlin to:SHAREE GAGE ?? Lactate Reference Range: 0.5 - 2.2 mmol/L 07/01/2015 3:30 PM CDT 07/01/2015 3:35 PM CDT Narrative [facility] HISTORICAL RESULTS - 07/01/2015 4:02 PM CDT LARM BC Draw ? LHAND BC Draw ?? us Alli Paula DO LAB BLOOD ORDERABLES Final Result [facility] HISTORICAL RESULTS * (ABNORMAL) BLOOD GAS w/LYTES & LACTATE (07/01/2015 2:21 PM CDT) Specimen Type ARTERIAL Puncture Site LR Patient Temperature 37 C 06/30 2:32 PM T [facility] HISTORICAL RESULTS pH 7.474(H) 7.350 - 7.450 pCO2 40.5 34.0 - 45.0 mmHg pO2 52.6(L) 79.0 - 87.0 mmHg HCO3 29.4(H) 22.0 - 26.0 mmol/L Total CO2 30.7(H) 26.0 - 28.0 mmol/L Base Excess 5.7(H) -2.0 - 2.0 mmol/L Hemoglobin 12.3(L) 13.5 - 18.0 g/dL O2 Saturation 86.4(L) >=95.0 % ABG Carboxyhemoglobin 2.7 <=3.0 % 05/2015 2:32 PM [facility] HISTORICAL RESULTS ABG Methemoglobin 1.0 0.4 - 1.5 % ABG O2 Content 15.0(L) 17.6 - 24.3 Vol % Na+ (BLOOD GAS) 141.0 135.0 - 145.0 mmol/L K+ (BLOOD GAS) 2.8(L) 3.5 - 5.0 mmol/L CA++ (ionized) BLOOD GAS 1.15 1.07 - 1.31 mmol/L GLUCOSE (BLOOD GAS) 130.0(H) 70.0 - 110.0 mg/dL Lactate (BLOOD GAS) 2.4(HH) 0.4 - 0.8 mEq/L A-a O2 Difference 175.6(H) <=10.0 016 2:32 PM T [facility] HISTORICAL RESULTS a/A Ratio 0.2(L) >=0.8 O2 Delivery Device CANNULA 2015 2:32 PM T [facility] HISTORICAL RESULTS Liter Flow 5.0 FiO2 40.0 % Audio Production Engineer ID [id number] 07/01/2015 2:21 PM CDT 07/01/2015 2:27 PM CDT [facility] HISTORICAL RESULTS - 07/01/2015 2:32 PM CDT Conditions Oxygen ?? Source Arterial Alli Paula DO LAB BLOOD ORDERABLES Final Result [facility] HISTORICAL RESULTS * Microbiology Specimen Report (Converted) (07/01/2015 2:10 PM CDT) 07/01/2015 2:10 PM CDT 07/01/2015 2:14 PM CDT [facility] HISTORICAL RESULTS - 07/01/2015 2:10 PM CDT Microbiology Specimen Report (Converted) SPECIMEN [id number] ?? COLLECTED: 2015-07-01 14:10:00 [id number] ?? REQ#: [id number] REQUESTING DR: Alil Paula DO ?? SOURCE: BLOOD ?? SP DESC: COMMENT: LARM BC Draw ?? --- PROCEDURE --- ?--- RESULT --- ?? CULTURE BLOOD ADULT (SET OF 2) ??(Final) ??- ??Performed at [facility] ?* NO GROWTH DAY 5 - [facility] ? [address] [place] [address] ? [place] [address] ? Tate Novak MD Procedure Note 06/20/2018 Microbiology Specimen Report (Converted) SPECIMEN [id number] COLLECTED: 2015-07-01 14:10:00 [id number] REQ#:[id number] REQUESTING DR: Alli Paula DO SOURCE: BLOOD SP DESC: COMMENT: LARM BC Draw --- PROCEDURE --- --- RESULT --- CULTURE BLOOD ADULT (SET OF 2) (Final) - Performed at [facility] * NO GROWTH DAY 5 - [place] [address] Tate Novak MD Alli Paula DO LAB BLOOD ORDERABLES Final Result [facility] HISTORICAL RESULTS * (ABNORMAL) PROCALCITONIN Pre-antibiotic (07/01/2015 2:10 PM CDT) [facility] Procalcitonin 4.75(H) 0.0 - 0.24 ng/mL Comment: Reflex Procalcitonin will be drawn in 48 hours.Guidelines for use with Community Acquired Pneumonia(CAP)- ONLY: ?? <0.1 ng/mL: Use of antibiotics is STRONGLY discouraged ?? 0.1-0.24 ng/mL: Use of antibiotics is discouraged ?? 0.25-0.5 ng/mL: Use of antibiotics is encouraged ?? >0.5 ng/mL: Use of antibiotics is STRONGLY encouraged ?? Recommend repeating every 2-3 days if initial PCT >0.24 07/01/2015 2:10 PM CDT 07/01/2015 4:46 PM CDT Alli Paula DO LAB BLOOD ORDERABLES Final Result [facility] HISTORICAL RESULTS * (ABNORMAL) TNI with LIPID PANEL (07/01/2015 2:10 PM CDT) Troponin I < 0.300 0.000 - 0.300 ng/mL Comment: Reference using [place] Chemiluminescence ? Negative: Repeat in 4-6 hours as indicated. Triglycerides 52 0 - 199 mg/dL Comment:12 hr pc highly luis mmended for Triglyceride Cholesterol 57 0 - 199 mg/dL Comment: Borderline: ??200-239 High Risk: ?? >239 HDL Cholesterol 19(L) 40 - 60 mg/dL Comment: Major Risk ?< 40 mg/dL Moderate Risk ?40-60 mg/dL Negative Risk ?? > 60 mg/dL LDL Cholesterol, Calc 28 0 - 130 mg/dL Comment:High Risk > 159 mg/d L Cholesterol/HDL Ratio 3.0 Comment: Cholesterol / HDL Ratio 3.5:1 or less is desirable. Cholesterol / HDL Ratio greater than 5:1 is considered higher risk for developing heart disease. 07/01/2015 2:10 PM CDT 07/01/2015 2:14 PM CDT [facility] HISTORICAL RESULTS - 07/01/2015 2:57 PM CDT LARM BC Draw ?? Alli Paula DO LAB BLOOD ORDERABLES Final Result Performing Organization Address [facility] de Phone Number [facility] HISTORICAL RESULTS * (ABNORMAL) Protime-INR (07/01/2015 2:10 PM CDT) PT 15.3(H) 11.8 - 14.5 SECONDS Comment:New Reference Range in use at [facility] 05/04/2015 INR 1.21 0.01 - 5.99 Comment: Recommended Therapeutic range for Oral Anticoagulant Therapy No anti-coagulation therapy ? Normal Range: ?0.8-1.4 Anti-coagulation therapy ? Low intensity therapy ?2.0-3.0 ? High intensity therapy ?? 2.5-3.5 Critical Value ? Greater than or equal to 6.0 Patients should be monitored for serious bleeding. ?? 07/01/2015 2:10 PM CDT 07/01/2015 2:14 PM CDT [facility] HISTORICAL RESULTS - 07/01/2015 2:31 PM CDT LARM BC Draw ?? Alli Paula DO LAB BLOOD ORDERABLES Final Result Performing Organization Address [facility] de Phone Number [facility] HISTORICAL RESULTS * aPTT (07/01/2015 2:10 PM CDT) APTT 29 26 - 33 SECONDS Comment:New Reference Range in use at [facility] 05/04/2015 07/01/2015 2:10 PM CDT 07/01/2015 2:14 PM CDT [facility] HISTORICAL RESULTS - 07/01/2015 2:32 PM CDT [facility] BC Draw ?? us Alli Paula DO LAB BLOOD ORDERABLES Final Result [facility] HISTORICAL RESULTS * (ABNORMAL) Comprehensive metabolic panel (07/01/2015 2:10 PM CDT) Sodium 141 135 - 145 mmol/L Potassium 2.8(L) 3.3 - 5.1 mmol/L Chloride 97 96 - 108 mmol/L Carbon Dioxide 29 22 - 32 mmol/L Anion Gap 15 7 - 16 Glucose 131(H) 70 - 100 mg/dL BUN 18 8 - 23 mg/dL Creatinine 1.4(H) 0.5 - 1.3 mg/dL Comment: NOTE: Estimated GFR (Cockroft-Gault) will NOT be calculated unless patient Height and Weight were entered. Also, Kidney Disease Stage (GFR) and Estimated GFR (Cockroft-Gault) will NOT be calculated if Creatinine result is <0.2. Kidney Disease Stage 55 mL/MIN Comment: NOTE; ??The GFR is an [...] or on dialysis @ Est GFR (Cockcroft-G) 60 ml/MIN Calcium 9.0 8.8 - 10.2 mg/dL Total Protein 7.7 6.4 - 8.3 g/dL Albumin 3.5 3.5 - 5.2 g/dL Globulin 4.2(H) 2.3 - 3.5 gm/dL Albumin/Globulin Ratio 0.8(L) 1.1 - 1.8 Total Bilirubin 0.4 0.0 - 1.2 mg/dL AST 16 0 - 40 U/L ALT 12 0 - 41 U/L Alkaline Phosphatase 72 40 - 129 U/L 07/01/2015 2:10 PM CDT 07/01/2015 2:14 PM T Narrative [facility] HISTORICAL RESULTS - 07/01/2015 2:57 PM CDT LARM BC Draw ?? us Alli Paula DO LAB BLOOD ORDERABLES Final Result [facility] HISTORICAL RESULTS * (ABNORMAL) CBC with auto differential (07/01/2015 2:10 PM CDT) WBC 16.7(H) 4.6 - 10.2 x10 3/ul RBC 3.68(L) 4.11 - 5.71 x10 6/ul Hemoglobin 12.4(L) 13.0 - 17.0 g/dl Hct 36.2(L) 38.2 - 48.5 % MCV 98.4(H) 80.0 - 97.0 fl MCH 33.7(H) 27.0 - 31.2 pg MCHC 34.3 31.8 - 35.4 g/dl 07/01/2015 2:42 PM CDT [facility] HISTORICAL RESULTS RDW 12.3 11.6 - 14.8 % Plt Count 362 124 - 400 x10 3/ul MPV 9.5 7.4 - 10.4 fl Differential Method AUTOMATED DIFF --------- -- Neut % 86.5(H) 37.0 - 85.0 % Immature Gran % 0.8 0.0 - 3.0 % Lymph % 4.8(L) 5.0 - 45.0 % Simpson % 7.4 3.0 - 15.0 % Eos % 0.1 0.0 - 7.0 % Baso % 0.4 0.0 - 2.0 % ABSOLUTE COUNTS ABSOLUTE COUNTS --------- -- Absolute Neuts (auto) 14.4(H) 1.7 - 8.7 x10 3/ul Immature Gran # 0.1 0.0 - 0.3 x10 3/ul Absolute Lymphs (auto) 0.8 0.2 - 4.6 x10 3/ul Absolute Monos (auto) 1.2 0.1 - 1.5 x10 3/ul Absolute Eos (auto) 0.0 0.0 - 0.7 x10 3/ul Absolute Basos (auto) 0.1 0.0 - 0.2 x10 3/ul 07/01/2015 2:10 PM CDT 07/01/2015 2:14 PM CDT Narrative [facility] HISTORICAL RESULTS - 07/01/2015 2:42 PM CDT LARM BC Draw ?? Alli Paula DO LAB BLOOD ORDERABLES Final Result [facility] HISTORICAL RESULTS * XR Chest 1 View (07/01/2015 12:00 AM CDT) Anatomical Region Laterality Modality Body, Chest N/A Radiographic Tawanna ging 07/01/2015 Impressions 07/01/2015 3:44 PM CDT ??Bilateral perihilar and lower lobe air space opacities likely multifocal pneumonia. ??Following treatment follow-up in 6 weeks is needed to ensure resolution. THIS IS AN ELECTRONICALLY VERIFIED REPORT 07/01/2015 3:40 PM: ??Theo Howard M.D. ?? Theo Howard M.D. CH:ch 03:40 PM 03:40 PM FELA [EOD] Narrative 07/01/2015 3:44 PM CDT EXAMINATION: ??AP chest. HISTORY: ??Cough and fever for 3 days. TECHNIQUE: ??AP chest. COMPARISON: ??09/24/2014. FINDINGS: ??Bilateral perihilar air space opacities are seen especially in the infrahilar regions of the lower lobes. ??In setting this is most characteristic for diffuse pneumonia. ??No pleural effusion or pneumothorax. ??Cardiac and mediastinal silhouette are normal. Procedure Note Provider, MD Mirna - 08/15/2020 EXAMINATION: AP chest. HISTORY: Cough and fever for 3 days. TECHNIQUE: AP chest. COMPARISON: 09/24/2014. FINDINGS: Bilateral perihilar air space opacities are seen especially inthe infrahilar regions of the lower lobes. In setting this is mostcharacteristic for diffuse pneumonia. No pleural effusion or pneumothorax. Cardiac and mediastinal silhouette are normal. IMPRESSION: Bilateral perihilar and lower lobe air space opacities likely multifocal pneumonia. Following treatment follow-up in 6 weeks is neededto ensure resolution. THIS IS AN ELECTRONICALLY VERIFIED REPORT 07/01/2015 3:40 PM: Theo Howard M.D. Theo Howard M.D. CH:jasmin 03:40 PM 03:40 PM FELA [EOD] us Alli Shea Olivermingo DO IMG XR PROCEDURES Final Res ult * XR Chest 1 View (07/01/2015 12:00 AM CDT) Anatomical Region Laterality Modality Body, Chest N/A Radiographic Tawanna ging 07/01/2015 Impressions 07/01/2015 6:19 PM CDT ?? 1. ??A right-sided central line is in place with tip projecting over the superior vena cava. ??No pneumothorax. 2. ??Worsening pulmonary vascular congestion, interstitial and alveolar edema within both lungs. ??Superimposed infection/bilateral pneumonia is an additional consideration. THIS IS AN ELECTRONICALLY VERIFIED REPORT 07/01/2015 6:16 PM: ??Mary Kay Kelsey M.D. ?? Mary Kay Kelsey M.D. SS:barby 06:16 PM 06:16 PM SWO [EOD] Narrative 07/01/2015 6:19 PM CDT EXAMINATION: ??One-view chest dated 07/01/15 at 1719 hours HISTORY: Central line placement for IV medications for treatment of sepsis and pneumonia which were both diagnosed today. COMPARISON: ??One-view chest dated 07/01/15 at 1427 hours TECHNIQUE: ??An AP supine view of the chest is submitted. FINDINGS: ??A right-sided central line is now in place with tip projecting over the superior vena cava. No pneumothorax. The heart size is within normal limits. ??There is worsening pulmonary vascularity congestion, interstitial and early alveolar edema within both lungs. ??Superimposed infection is not excluded. ??No pneumothorax or pleural effusions. ??There is osteopenia. ??There is osteoarthritis of the acromioclavicular joints bilaterally. Procedure Note Provider, MD Mirna - 05/18/2021 EXAMINATION: One-view chest dated 07/01/15 at 1719 hours HISTORY: Central line placement for IV medications for treatment of sepsisand pneumonia which were both diagnosed today. COMPARISON: One-view chest dated 07/01/15 at 1427 hours TECHNIQUE: An AP supine view of the chest is submitted. FINDINGS: A right-sided central line is now in place with tip projectingover the superior vena cava. No pneumothorax. The heart size is within normal limits. There is worsening pulmonary vascularity congestion, interstitialand early alveolar edema within both lungs. Superimposed infection is not excluded. No pneumothorax or pleural effusions. There is osteopenia.There is osteoarthritis of the acromioclavicular joints bilaterally. IMPRESSION: 1. A right-sided central line is in place with tip projecting over the superior vena cava. No pneumothorax. 2. Worsening pulmonary vascular congestion, interstitial and alveolaredema within both lungs. Superimposed infection/bilateral pneumonia is an additional consideration. THIS IS AN ELECTRONICALLY VERIFIED REPORT 07/01/2015 6:16 PM: Mary Kay Kelsey M.D. Mary Kay Kelsey M.D. SS:barby 06:16 PM 06:16 PM SWO [EOD] Alli Paula DO IMG XR PROCEDURES Final Res ult documented in this encounter Visit Diagnoses Diagnosis Sepsis (HCC) Pneumonia Pneumonia, organism unspecified Acute respiratory failure with hypoxia (CMS/HCC) (HCC) Severe sepsis with septic shock (CODE) (HCC) Encephalopathy Unspecified encephalopathy Hemiplegia and hemiparesis following cerebral infarction affecting right dominant side (HCC) Acute kidney failure (HCC) Acute kidney failure, unspecified Hyperlipidemia Other and unspecified hyperlipidemia Essential (primary) hypertension Unspecified essential hypertension Gastro-esophageal reflux disease without esophagitis Osteoarthritis Osteoarthrosis, unspecified whether generalized or localized, unspecified site Major depressive disorder, single episode Major depressive disorder, single episode, unspecified Allergy status to narcotic agent Tobacco use Aphasia following cerebral infarction Obesity Obesity, unspecified Body mass index (BMI) of 27.0-27.9 in adult Other sequelae of other cerebrovascular disease Urinary incontinence Unspecified urinary incontinence Hypokalemia Hypopotassemia Stage II pressure ulcer of sacral region (HCC) documented in this encounter Additional Health Concerns 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 difficile Comment:Germ watcher auto flagging 01/15/2014 01/15/2014 documented as of this encounter
--- OUTSIDE RECORDS SUMMARY | 2024-04-03 17:34 | XMS_ITS | Encounter Summary ---
Author Organization [facility] Healthcare Address [address] [place] [address] Care Team Providers Care Automobile Appraiser Name Role Phone Unavailable Primary Care Provider Unavailabl e Encounter Details Date Type Department Care Team (Latest Contact Info) Description 12/22/2017 11:01 AM CDT Hospital Encounter [facility] Shawn Pearson MD [address] [place] [address] Abnormal findings on diagnostic imaging of other specified body structures Social History Tobacco Use Types Packs/Day Years Used Date Smoking Tobacco: Never Assessed Sex and Gender Information Value Date Recorded Sex Assigned at Not on file 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 1.Mildly heterogeneous radiotracer activity, difficult to determine the full extent of disease. 2.Note that the markedly abnormal right humerus as seen on the radiograph has only mildly abnormal heterogeneous radiotracer uptake. 3.Most intense sites of radiotracer uptake or of the proximal right humerus which may be related to the reported recent fracture, and the right sternoclavicular joint. ??Right intertrochanteric activity is equivocal. THIS IS AN ELECTRONICALLY VERIFIED FINAL REPORT 12/22/2017 4:40 PM - Electronically signed by Theo Howard M.D. D: ??12/22/2017 4:40 PM T: Report ID: [id number] Reading Location: ??[id number] [EOD] Narrative 12/22/2017 4:43 PM CDT EXAM DESCRIPTION: Bone Scan - Whole Body REASON FOR STUDY: ??Lesions of right arm R93.8, fracture of the right humerus 08/27/2017, additional history includes lumbar spine surgery and left knee surgery. RADIOPHARMACEUTICAL: ??28 mCi Tc-99m HDP via a left hand IV site. TECHNIQUE: ??Delayed whole-body scintigrams were obtained. COMPARISON: ??No prior bone scan. ??Correlation with right shoulder radiographs 12/10/2017. FINDINGS: Moderate intensity radiotracer activity is seen associated with the proximal right humerus. ??Mild radiotracer uptake of the right intertrochanteric hip on the posterior projection may be exacerbated by positioning, closer to the posterior projection. ??This is only minimally increased on the frontal projection. ??Otherwise mildly heterogeneous radiotracer activity is seen, for example the diffusely abnormal right humeral diaphysis as seen on the radiograph has mild abnormal uptake. ??This indicates that the nature of disease is relatively inconspicuous by bone scan. ??Uptake of the left calvarium corresponds to a site of previous craniotomy. ??Retained activity in the urinary bladder limits assessment. Procedure Note Provider, MD Mirna - 08/15/2020 EXAM DESCRIPTION: Bone Scan - Whole Body REASON FOR STUDY: Lesions of right arm R93.8, fracture of the righthumerus 08/27/2017, additional history includes lumbar spine surgery and left knee surgery. RADIOPHARMACEUTICAL: 28 mCi Tc-99m HDP via a left hand IV site. TECHNIQUE: Delayed whole-body scintigrams were obtained. COMPARISON: No prior bone scan. Correlation with right shoulderradiographs 12/10/2017. FINDINGS: Moderate intensity radiotracer activity is seen associated with theproximal right humerus. Mild radiotracer uptake of the right intertrochanteric hipon the posterior projection may be exacerbated by positioning, closer to the posterior projection. This is only minimally increased on the frontal projection. Otherwise mildly heterogeneous radiotracer activity is seen,for example the diffusely abnormal right humeral diaphysis as seen on the radiograph has mild abnormal uptake. This indicates that the nature of disease is relatively inconspicuous by bone scan. Uptake of the left calvarium corresponds to a site of previous craniotomy. Retained activityin the urinary bladder limits assessment. IMPRESSION: 1.Mildly heterogeneous radiotracer activity, difficult to determine thefull extent of disease. 2.Note that the markedly abnormal right humerus as seen on the radiographhas only mildly abnormal heterogeneous radiotracer uptake. 3.Most intense sites of radiotracer uptake or of the proximal righthumerus which may be related to the reported recent fracture, and the right sternoclavicular joint. Right intertrochanteric activity is equivocal. THIS IS AN ELECTRONICALLY VERIFIED FINAL REPORT 12/22/2017 4:40 PM - Electronically signed by Theo Howard M.D. T: Report ID: [id number] Reading Location: [id number] [EOD] us Shawn Berkowitz MD IMG NM PROCEDURES Final Res ult documented in this encounter Visit Diagnoses Diagnosis Abnormal findings on diagnostic imaging of other specified body structures documented in this encounter Additional Health Concerns 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 difficile Comment:Germ watcher auto flagging 01/15/2014 01/15/2014 documented as of this encounter
--- OUTSIDE RECORDS SUMMARY | 2024-04-03 17:34 | XMS_ITS | Encounter Summary ---
Author Organization [facility] Address [address] [place] [address] Care Team Providers Care Drop Hammer Pile Driver Operator Name Role Phone Unavailable Primary Care Provider Unavailabl e Encounter Details Date Type Department Care Team (Late st Contact Info) Description 07/30/2018 Telephone [facility] Internal Medicine [address] [place] [id number] [place] [address] [place] [address] [address] [place], [place] [id number] Social History Tobacco Use Types Packs/Day Years Used Date Smoking Tobacco: Never Assessed Sex and Gender Information Value Date Recorded Sex Assigned at Not on file 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 Gender Identity Not on file Sexual Orientation Not on file documented as of this encounter Ordered Prescriptions Prescription Sig Dispense Quantity Refills Last Filled Start Date End Date nicotine (NICODERM CQ) [address] 1 patch on the skin daily 28 patch 2 07/30/2018 08/25/2018 documented in this encounter Miscellaneous Notes * Telephone Encounter - Shannon Chapman MA - 07/30/2018 11:21 AM CDT Requesting refill on nicotine patch haven't had any in a long time [facility] documented in this encounter Plan of Treatment Not on file documented as of this encounter Visit Diagnoses Not on filedocumented in this encounter Additional Health Concerns 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 difficile Comment:Germ watcher auto flagging 01/15/2014 01/15/2014 documented as of this encounter
--- OUTSIDE RECORDS SUMMARY | 2024-04-03 17:34 | XMS_ITS | Encounter Summary ---
Author Organization [facility] Address [address] [place] [address] Care Team Providers Care Grades 7 8 Tutor Name Role Phone Shawn Berkowitz MD Primary Care Provider [phone] Reason for Visit * Reason Comments Follow-up on HTN,HLD,Depressio n - no labs great toe nails large toe nails look like they might fall off Encounter Details Date Type Department Care Team (Late st Contact Info) Description 08/25/2018 1:15 PM CDT Office Visit [facility] Internal Medicine [address] [facility] [address] [place] [address] [place] [address] [place] [address] [address] [place] [address] Hemiparesis as late effect of cerebrovascular accident (CVA) (CMS/HCC) (Primary Dx); Cerebrovascular accident (CVA) involving left cerebral hemisphere (CMS/HCC); Major depressive disorder, remission status unspecified, unspecified whether recurrent; Pure hypercholesterolemia; Dorsalgia; Essential (primary) hypertension; Seizure (CMS/HCC); Benign prostatic hyperplasia without lower urinary tract symptoms; Stenosis of left carotid artery; Aphasia following cerebral infarction ; Onychomycosis Social History Tobacco Use Types Packs/Day Years [...] on file 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 Subjective/Objective Patient ID: Curly Cash is a 62 y.o. male. Chief Complaint Chief Complaint Patient presents with ??? Follow-up on HTN,HLD,Depression - no labs ??? great toe nails large toe nails look like they might fall off HPI: The patient came for follow-up. He is accompanied by his . The patient has thick toenails.No chest pain or shortness of breath. Current Outpatient Medications Medication Sig Dispense Refill ??? amitriptyline (ELAVIL) 75 mg tablet Take 1 tablet (75 mg total) by mouth daily 30 tablet 1 ??? amLODIPine (NORVASC) 10 mg tablet Take 1 tablet (10 mg total) by mouth daily 30 tablet 1 ??? aspirin 325 mg tablet Take 325 mg by mouth daily ??? atorvastatin (LIPITOR) 40 mg tablet Take 1 tablet (40 mg total) by mouth daily 30 tablet 1 ??? gabapentin (NEURONTIN) 800 mg tablet Take 1 tablet (800 mg total) by mouth 4 (four) times a gis171 tablet 1 ??? levETIRAcetam (KEPPRA) 500 mg tablet Take 1 tablet (500 mg total) by mouth every 12 (twelve) hours 60 tablet 1 ??? metoprolol (LOPRESSOR) 25 mg tablet Take 1 tablet (25 mg total) by mouth 2 (two) times a day 60tablet 1 ??? raNITIdine (ZANTAC) 300 mg tablet Take 1 tablet (300 mg total) by mouth 2 (two) times a day 60 tablet 1 ??? tamsulosin (FLOMAX) 0.4 mg extended release capsule Take 1 capsule (0.4 mg total) by mouth daily 30 capsule 1 No current facility-administered medications for this visit. [...] on file Tobacco Use ??? Smoking status: Former Smoker Last attempt to quit: 06/2018 Years since quittin.1 ??? Smokeless tobacco: Never Used Substance and Sexual Activity ??? Alcohol use: Never Frequency: Never ??? Drug use: Never ??? Sexual activity: Not on file Lifestyle ??? Physical activity: Days per week: Not on file Minutes per session: Not on file ??? Stress: Not on file Relationships ??? Social connections: Talks on phone: Not on file Gets together: Not on file Attends hinduism service: Not on file Active member of [...] hallucinations. The patient is not nervous/anxious. BP 118/74 (BP Location: Left arm) Pulse 72 Temp 36.7 ??C (98.1 ??F) (Tympanic) Resp 16 IfH429% There is no height or weight on file to calculate BMI. Physical Exam Constitutional: The patient has aphasia. Well nourished. On a wheelchair. HENT: Head: Normocephalic and atraumatic. Right Ear: [...] adenopathy. Extremities: No cyanosis, clubbing or edema. Feet: Thick and discolored toenails in both feet Neurological: Patient is alert and oriented to person, place, and time. Cranial nerves are intact. Reflexes are +2 all over, power is 2+ over 5 on the right side and 5/5 on the left side . Skin: Skin is warm. No rash noted. No pallor. Psychiatric: Patient has a normal mood and affect. Procedure Note: No notes on file Diagnoses and all orders for this visit: Hemiparesis as late effect of cerebrovascular accident (CVA) (CMS/HCC) (Primary) Assessment & Plan: No change in weakness and continue aspirin daily Orders: - US Carotids Duplex Bilateral; Future Cerebrovascular accident (CVA) involving left cerebral hemisphere (CMS/HCC) Major depressive disorder, remission status unspecified, unspecified whether recurrent Assessment & Plan: Controlled on Elavil Pure hypercholesterolemia Assessment & Plan: Controlled on current medications. Continue low-fat diet. Will continue to monitor . Orders: - Lipid panel; Future - Comprehensive metabolic panel; Future Dorsalgia Essential (primary) hypertension Assessment & Plan: Continue current medications. Discussed low-salt diet. Discussed exercise on regular basis. Will continue to monitor Seizure ([facility]) Assessment & Plan: Controlled on Keppra Benign prostatic hyperplasia without lower urinary tract symptoms Assessment & Plan: Controlled on Flomax Stenosis of left carotid artery Aphasia following cerebral infarction - US Carotids Duplex Bilateral; Future Onychomycosis Assessment & Plan: Will make him a referral to see a riveter pneumatic for further evaluation Orders: - Ambulatory referral to Podiatry; Future documented in this encounter Miscellaneous Notes * Assessment & Plan Note - Shawn Berkowitz MD - 08/25/2018 3:53 PM CDT Associated Problem(s): Onychomycosis Will make him a referral to see a riveter pneumatic for further evaluation * Assessment & Plan Note - Shawn Berkowitz MD - 08/25/2018 3:53 PM CDT Associated Problem(s): Benign prostatic hyperplasia without lower urinary tract symptoms Controlled on Flomax * Assessment & Plan Note - Shawn Berkowitz MD - 08/25/2018 1:36 PM CDT Associated Problem(s): Recurrent major depressive disorder, in full remission (CMS/HCC) (HCC) (Deleted) Controlled on Elavil * Assessment & Plan Note - Shawn Berkowitz MD - 08/25/2018 1:35 PM CDT Associated Problem(s): Seizure (HCC) Controlled on Keppra * Assessment & Plan Note - Shawn Berkowitz MD - 08/25/2018 1:35 PM CDT Associated Problem(s): HLD (hyperlipidemia) (Deleted) Controlled on current medications. Continue low-fat diet. Will continue to monitor . * Assessment & Plan Note - Shawn Berkowitz MD - 08/25/2018 1:35 PM CDT Associated Problem(s): Essential (primary) hypertension Continue current medications. Discussed low-salt diet. Discussed exercise on regular basis. Will continue to monitor * Assessment & Plan Note - Shawn Berkowitz MD - 08/25/2018 1:34 PM CDT Associated Problem(s): Hemiparesis as late effect of cerebrovascular accident (CVA) (CMS/HCC) (HCC) No change in weakness and continue aspirin daily documented in this encounter Plan of Treatment Scheduled Orders Name Type Priority Associated Diagnoses Orde r Schedule Lipid panel Lab Routine Pure hypercholesterolemia Expected: 08/25/2018, Expires: 08/26/2019 Comprehensive metabolic panel Lab Routine Pure hypercholesterolemia Expected: 08/25/2018, Expires: 08/26/2019 documented as of this encounter Visit Diagnoses Diagnosis Hemiparesis as late effect of cerebrovascular accident (CVA) (CMS/HCC) (HCC)- Primary Cerebrovascular accident (CVA) involving left cerebral hemisphere (HCC) Major depressive disorder, remission status unspecified, unspecified whether recurrent Pure hypercholesterolemia Dorsalgia Pain in thoracic spine Essential (primary) hypertension Unspecified essential hypertension Seizure (HCC) Other convulsions Benign prostatic hyperplasia without lower urinary tract symptoms Stenosis of left carotid artery Occlusion and stenosis of carotid artery without mention of cerebral infarction Aphasia following cerebral infarction Onychomycosis Dermatophytosis of nail documented in this encounter Discontinued Medications Medication Sig Discontinue Reason Start Date End Da te nicotine (NICODERM CQ) [address] 1 patch on the skin daily Therapy completed 07/30/2018 08/25/2018 documented as of this encounter Additional Health Concerns 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 difficile Comment:Germ watcher auto flagging 01/15/2014 01/15/2014 documented as of this encounter Care Teams Grades 7 8 Tutor Relationship Specialty Start Date End Date Shawn Berkowitz MD [address] [place] [address] PCP - General Internal Medicine 08/11/18 documented as of this encounter
--- OUTSIDE RECORDS SUMMARY | 2024-04-03 17:34 | XMS_ITS | Encounter Summary ---
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 Historical Provider Final Res ult documented in this encounter Visit Diagnoses Not on filedocumented in this encounter Additional Health Concerns 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 difficile Comment:Germ watcher auto flagging 01/15/2014 01/15/2014 documented as of this encounter Care Teams Tufter Hand Relationship Specialty Start Date End Date Shawn Berkowitz MD [address] [place] [address] PCP - General Internal Medicine 08/11/18 documented as of this encounter
--- OUTSIDE RECORDS SUMMARY | 2024-04-03 17:34 | XMS_ITS | Encounter Summary ---
Author Organization [facility] Facility Care Team Providers Care Hat Checker Name Role Phone Unavailable Primary Care Provider Unavailabl e Encounter Details Date Type Department Care Team (Late st Contact Info) Description 02/28/2015 7:44 AM WASHER CUTTER - 02/28/2015 4:00 PM WASHER CUTTER Hospital Encounter [facility] Markie Crawford MD [address] [place] [address] Occlusion and stenosis of left carotid artery; Personal history of transient ischemic attack (TIA), and cerebral infarction without residual deficits; Osteoarthritis; Hyperlipidemia; Rheumatic tricuspid insufficiency; Essential (primary) hypertension; Gastro-esophageal reflux disease without esophagitis Social History Tobacco Use Types Packs/Day Years Used Date Smoking Tobacco: Never Assessed Sex and Gender Information Value Date Recorded Sex Assigned at Not on file Legal Sex Male 6:59 AM WASHER CUTTER Gender Identity Not on file Sexual Orientation Not on file documented as of this encounter Plan of Treatment Not on file documented as of this encounter Procedures Procedure Name Priority Date/Time Associated Diagnosis Comments ANGIO NON-SELECTIVE GREAT VESSEL Routine 02/28/2015 10:50 AM WASHER CUTTER ANGIO NON-SELECTIVE GREAT VESSEL Routine 02/28/2015 10:50 AM WASHER CUTTER documented in this encounter Results * Angio Non-Selective Great Vessel (02/28/2015 10:50 AM WASHER CUTTER) Anatomical Region Laterality Modality Body N/A X-Ray Angiograph y 02/28/2015 10:5 0 AM WASHER CUTTER Narrative 03/01/2015 8:33 PM WASHER CUTTER DEWITTE CROSS, M.D. DEVANTE PADDACK, M.D. FINAL REPORT The radiology attending physician has personally reviewed this study, and has reviewed and/or edited this written report and agrees with it. ACC# ??Date Time ??Exam [id number] Feb 28, 2015 10:50:00 [id number] Angio Org Carotid DIETARY SUPERVISOR Uni R [id number] Feb 28, 2015 10:50:00 [id number] Angio Org Carotid DIETARY SUPERVISOR Uni L EXAMINATION: ?? 1. Cerebral angiogram: Aortic arch, left common carotid artery, right common carotid artery PHYSICIANS: Dr. Vogel, diagnostic neuroradiology fellow; Dr. Bose interventional neuroradiology attending physician. DATE: 02/28/2015 HISTORY: 59-year-old male with left MCA stroke and left internal carotid artery stenosis. PROCEDURE: Consent for the procedure was obtained from the patient's following a discussion of its technique, benefits, and risks, including stroke, transient neurological deficits, blood vessel injury, and bleeding. Moderate sedation was administered under the direction of the attending physician with continuous monitoring by a trained nurse specialist independent of those performing the procedure. Total monitored sedation time was 45 minutes. Following sterile preparation and draping, fluoroscopic localization of the femoral head for a femoral approach, and injection of buffered 1% lidocaine for local anesthesia, a right femoral puncture was performed with a 19 gauge modified Grey needle. A 5 Kazakh sheath was inserted over a J-wire and connected to a regulated pressurized infusion of heparinized saline. A 5 Kazakh pigtail catheter was advanced over the wire to the aortic arch and an aortic arch injection of contrast was performed to image the arch and brachiocephalic vessels in INDONESIAN and SNOWDEN projections. The pigtail catheter was then removed over the wire. A 5 Kazakh JB2 catheter was introduced over the wire, then used in conjunction with Roadrunner wire to select the following vessels: Left common carotid artery, right common carotid artery. Contrast was injected in the selected vessels for imaging in multiple projections. Images of the cranial and cervical vessels were obtained for interpretation. The catheter was then removed. Hemostasis was achieved after sheath removal by manual compression ?? There were no immediate complications. The patient was transported to the recovery area in stable condition. CONTRAST TYPE AND AMOUNT: Optiray 320 85 ml ATTENDING PHYSICIAN: Dr. Bose was present for the entire procedure. FINDINGS: AORTIC ARCH: The aortic arch is normal. The left common carotid artery arises from a common trunk with the innominate. ??Innominate artery and subclavian arteries are smooth and nonstenotic. Both proximal common carotid arteries appear normal. CAROTID BIFURCATIONS: The right carotid bifurcation lies at the C3-C4 vertebral level. There is approximately 20% smooth proximal right ICA ??stenosis. The left carotid bifurcation lies at the C4 vertebral level. There is approximately 33% stenosis of the proximal left ICA just above the bulb. The cervical ICA on the left is overall small in caliber but remains larger than the ipsilateral ECA. The visualized external carotid branches appear normal. CERVICAL VERTEBRAL ARTERIES: Right vertebral artery is dominant. There is approximately 20% narrowing of the right vertebral artery origin. There is approximately 50 to 60% stenosis of the left vertebral artery origin. CRANIAL VESSELS: There is no aneurysm, vascular malformation, stenosis, dissection or vascular tumor stain. Surgical changes of left frontal craniotomy are noted. There is minor atherosclerotic disease of the intracranial ICAs. The left MCA branches are attenuated with relatively small caliber of the left M1 which is likely secondary to a decrease distal MCA flow due to large-volume encephalomalacia. The right MCA, ??KRISSY, and branches are within normal limits. ??The ophthalmic arteries arise from the ICAs bilaterally. An ACOM artery is present filling from left to right. ??A normal caliber A1 segment is present on both sides. Venous phases appear normal. Right-sided parenchymal phases are normal with decreased parenchymal staining in the left MCA territory consistent with known encephalomalacia. IMPRESSION: ?? 1. Approximately 33% stenosis of the proximal left ICA just above the bulb. The left cervical ICA is overall small in caliber which may be secondary to decreased flow to the left MCA. 2. Minor atherosclerosis of intracranial vasculature. There is attenuation of the left MCA branches and decreased caliber of the left M1 segment which may secondary to decreased distal left MCA flow secondary to the encephalomalacia. 3. Approximately 20% smooth stenosis of the proximal right ICA. 4. Dominant right vertebral artery. There is approximately 20% origin stenosis of the right vertebral artery. There is approximately 50 to 60% origin stenosis of the left vertebral artery. Requested By: Dictated By: ?? DEVANTE VOGEL M.D. ??on Feb ??2014 ??6:53P This document has been electronically signed by: PRICILA BOSE M.D. on Feb ??2014 ??8:33P [id number] Procedure Note Provider, MD Mirna - 07/28/2016 PRICILA BOSE M.D. DEVANTE VOGEL M.D. FINAL REPORT The radiology attending physician has personally reviewed this study, and has reviewed and/or edited this written report and agrees with it. ACC# Date Time Exam [id number] Feb 28, 2015 10:50:00 [id number] Angio Org Carotid DIETARY SUPERVISOR Uni R [id number] Feb 28, 2015 10:50:00 [id number] Angio Org Carotid DIETARY SUPERVISOR Uni L EXAMINATION: 1. Cerebral angiogram: Aortic arch, left common carotid artery, right common carotid artery PHYSICIANS: Dr. Vogel, diagnostic neuroradiology fellow; Dr. Bose interventional neuroradiology attending physician. DATE: 02/28/2015 HISTORY: 59-year-old male with left MCA stroke and left internal carotid artery stenosis. PROCEDURE: Consent for the procedure was obtained from the patient's following a discussion of its technique, benefits, and risks, including stroke, transient neurological deficits, blood vessel injury, and bleeding. Moderate sedation was administered under the direction of the attending physician with continuous monitoring by a trained nurse specialist independent of those performing the procedure. Total monitored sedation time was 45 minutes. Following sterile preparation and draping, fluoroscopic localization of the femoral head for a femoral approach, and injection of buffered 1% lidocaine for local anesthesia, a right femoral puncture was performed with a 19 gauge modified Grey needle. A 5 Kazakh sheath was inserted over a J-wire and connected to a regulated pressurized infusion of heparinized saline. A 5 Kazakh pigtail catheter was advanced over the wire to the aortic arch and an aortic arch injection of contrast was performed to image the arch and brachiocephalic vessels in INDONESIAN and SNOWDEN projections. The pigtail catheter was then removed over the wire. A 5 Kazakh JB2 catheter was introduced over the wire, then used in conjunction with Roadrunner wire to select the following vessels: Left common carotid artery, right common carotid artery. Contrast was injected in the selected vessels for imaging in multiple projections. Images of the cranial and cervical vessels were obtained for interpretation. The catheter was then removed. Hemostasis was achieved after sheath removal by manual compression There were no immediate complications. The patient was transported to the recovery area in stable condition. CONTRAST TYPE AND AMOUNT: Optiray 320 85 ml ATTENDING PHYSICIAN: Dr. Bose was present for the entire procedure. FINDINGS: AORTIC ARCH: The aortic arch is normal. The left common carotid artery arises from a common trunk with the innominate. Innominate artery and subclavian arteries are smooth and nonstenotic. Both proximal common carotid arteries appear normal. CAROTID BIFURCATIONS: The right carotid bifurcation lies at the C3-C4 vertebral level. There is approximately 20% smooth proximal right ICA stenosis. The left carotid bifurcation lies at the C4 vertebral level. There is approximately 33% stenosis of the proximal left ICA just above the bulb. The cervical ICA on the left is overall small in caliber but remains larger than the ipsilateral ECA. The visualized external carotid branches appear normal. CERVICAL VERTEBRAL ARTERIES: Right vertebral artery is dominant. There is approximately 20% narrowing of the right vertebral artery origin. There is approximately 50 to 60% stenosis of the left vertebral artery origin. CRANIAL VESSELS: There is no aneurysm, vascular malformation, stenosis, dissection or vascular tumor stain. Surgical changes of left frontal craniotomy are noted. There is minor atherosclerotic disease of the intracranial ICAs. The left MCA branches are attenuated with relatively small caliber of the left M1 which is likely secondary to a decrease distal MCA flow due to large-volume encephalomalacia. The right MCA, KRISSY, and branches are within normal limits. The ophthalmic arteries arise from the ICAs bilaterally. An ACOM artery is present filling from left to right. A normal caliber A1 segment is present on both sides. Venous phases appear normal. Right-sided parenchymal phases are normal with decreased parenchymal staining in the left MCA territory consistent with known encephalomalacia. IMPRESSION: 1. Approximately 33% stenosis of the proximal left ICA just above the bulb. The left cervical ICA is overall small in caliber which may be secondary to decreased flow to the left MCA. 2. Minor atherosclerosis of intracranial vasculature. There is attenuation of the left MCA branches and decreased caliber of the left M1 segment which may secondary to decreased distal left MCA flow secondary to the encephalomalacia. 3. Approximately 20% smooth stenosis of the proximal right ICA. 4. Dominant right vertebral artery. There is approximately 20% origin stenosis of the right vertebral artery. There is approximately 50 to 60% origin stenosis of the left vertebral artery. Requested By: Dictated By: DEVANTE VOGEL M.D. on Feb 28 2015 6:53P This document has been electronically signed by: PRICILA BOSE M.D. on Mar 01 2015 8:33P [id number] us Historical Provider MD ESTRADA IR PROCEDURES Final R esult * Angio Non-Selective Great Vessel (02/28/2015 10:50 AM WASHER CUTTER) Anatomical Region Laterality Modality Body N/A X-Ray Angiograph y 02/28/2015 10:5 0 AM WASHER CUTTER Narrative 03/01/2015 8:33 PM WASHER CUTTER Tanja BHAGAT M.D. FINAL REPORT The radiology attending physician has personally reviewed this study, and has reviewed and/or edited this written report and agrees with it. ACC# ??Date Time ??Exam [id number] Feb 28, 2015 10:50:00 [id number] Angio Org Carotid DIETARY SUPERVISOR Uni R [id number] Feb 28, 2015 10:50:00 [id number] Angio Org Carotid DIETARY SUPERVISOR Uni L EXAMINATION: ?? 1. Cerebral angiogram: Aortic arch, left common carotid artery, right common carotid artery PHYSICIANS: Dr. Vogel, diagnostic neuroradiology fellow; Dr. Bose interventional neuroradiology attending physician. DATE: 02/28/2015 HISTORY: 59-year-old male with left MCA stroke and left internal carotid artery stenosis. PROCEDURE: Consent for the procedure was obtained from the patient's following a discussion of its technique, benefits, and risks, including stroke, transient neurological deficits, blood vessel injury, and bleeding. Moderate sedation was administered under the direction of the attending physician with continuous monitoring by a trained nurse specialist independent of those performing the procedure. Total monitored sedation time was 45 minutes. Following sterile preparation and draping, fluoroscopic localization of the femoral head for a femoral approach, and injection of buffered 1% lidocaine for local anesthesia, a right femoral puncture was performed with a 19 gauge modified Grey needle. A 5 Kazakh sheath was inserted over a J-wire and connected to a regulated pressurized infusion of heparinized saline. A 5 Kazakh pigtail catheter was advanced over the wire to the aortic arch and an aortic arch injection of contrast was performed to image the arch and brachiocephalic vessels in INDONESIAN and SNOWDEN projections. The pigtail catheter was then removed over the wire. A 5 Kazakh JB2 catheter was introduced over the wire, then used in conjunction with Roadrunner wire to select the following vessels: Left common carotid artery, right common carotid artery. Contrast was injected in the selected vessels for imaging in multiple projections. Images of the cranial and cervical vessels were obtained for interpretation. The catheter was then removed. Hemostasis was achieved after sheath removal by manual compression ?? There were no immediate complications. The patient was transported to the recovery area in stable condition. CONTRAST TYPE AND AMOUNT: Optiray 320 85 ml ATTENDING PHYSICIAN: Dr. Bose was present for the entire procedure. FINDINGS: AORTIC ARCH: The aortic arch is normal. The left common carotid artery arises from a common trunk with the innominate. ??Innominate artery and subclavian arteries are smooth and nonstenotic. Both proximal common carotid arteries appear normal. CAROTID BIFURCATIONS: The right carotid bifurcation lies at the C3-C4 vertebral level. There is approximately 20% smooth proximal right ICA ??stenosis. The left carotid bifurcation lies at the C4 vertebral level. There is approximately 33% stenosis of the proximal left ICA just above the bulb. The cervical ICA on the left is overall small in caliber but remains larger than the ipsilateral ECA. The visualized external carotid branches appear normal. CERVICAL VERTEBRAL ARTERIES: Right vertebral artery is dominant. There is approximately 20% narrowing of the right vertebral artery origin. There is approximately 50 to 60% stenosis of the left vertebral artery origin. CRANIAL VESSELS: There is no aneurysm, vascular malformation, stenosis, dissection or vascular tumor stain. Surgical changes of left frontal craniotomy are noted. There is minor atherosclerotic disease of the intracranial ICAs. The left MCA branches are attenuated with relatively small caliber of the left M1 which is likely secondary to a decrease distal MCA flow due to large-volume encephalomalacia. The right MCA, ??KRISSY, and branches are within normal limits. ??The ophthalmic arteries arise from the ICAs bilaterally. An ACOM artery is present filling from left to right. ??A normal caliber A1 segment is present on both sides. Venous phases appear normal. Right-sided parenchymal phases are normal with decreased parenchymal staining in the left MCA territory consistent with known encephalomalacia. IMPRESSION: ?? 1. Approximately 33% stenosis of the proximal left ICA just above the bulb. The left cervical ICA is overall small in caliber which may be secondary to decreased flow to the left MCA. 2. Minor atherosclerosis of intracranial vasculature. There is attenuation of the left MCA branches and decreased caliber of the left M1 segment which may secondary to decreased distal left MCA flow secondary to the encephalomalacia. 3. Approximately 20% smooth stenosis of the proximal right ICA. 4. Dominant right vertebral artery. There is approximately 20% origin stenosis of the right vertebral artery. There is approximately 50 to 60% origin stenosis of the left vertebral artery. Requested By: Dictated By: ?? DEVANTE VOGEL M.D. ??on Feb ??2014 ??6:53P This document has been electronically signed by: PRICILA BOSE M.D. on Feb ??2014 ??8:33P [id number] Procedure Note Provider, MD Mirna - 07/28/2016 PRICILA BOSE M.D. DEVANTE VOGEL M.D. FINAL REPORT The radiology attending physician has personally reviewed this study, and has reviewed and/or edited this written report and agrees with it. ACC# Date Time Exam [id number] Feb 28, 2015 10:50:00 [id number] Angio Org Carotid DIETARY SUPERVISOR Uni R [id number] Feb 28, 2015 10:50:00 [id number] Angio Org Carotid DIETARY SUPERVISOR Uni L EXAMINATION: 1. Cerebral angiogram: Aortic arch, left common carotid artery, right common carotid artery PHYSICIANS: Dr. Vogle, diagnostic neuroradiology fellow; Dr. Bose interventional neuroradiology attending physician. DATE: 02/28/2015 HISTORY: 59-year-old male with left MCA stroke and left internal carotid artery stenosis. PROCEDURE: Consent for the procedure was obtained from the patient's following a discussion of its technique, benefits, and risks, including stroke, transient neurological deficits, blood vessel injury, and bleeding. Moderate sedation was administered under the direction of the attending physician with continuous monitoring by a trained nurse specialist independent of those performing the procedure. Total monitored sedation time was 45 minutes. Following sterile preparation and draping, fluoroscopic localization of the femoral head for a femoral approach, and injection of buffered 1% lidocaine for local anesthesia, a right femoral puncture was performed with a 19 gauge modified Grey needle. A 5 Kazakh sheath was inserted over a J-wire and connected to a regulated pressurized infusion of heparinized saline. A 5 Kazakh pigtail catheter was advanced over the wire to the aortic arch and an aortic arch injection of contrast was performed to image the arch and brachiocephalic vessels in INDONESIAN and SNOWDEN projections. The pigtail catheter was then removed over the wire. A 5 Kazakh JB2 catheter was introduced over the wire, then used in conjunction with Roadrunner wire to select the following vessels: Left common carotid artery, right common carotid artery. Contrast was injected in the selected vessels for imaging in multiple projections. Images of the cranial and cervical vessels were obtained for interpretation. The catheter was then removed. Hemostasis was achieved after sheath removal by manual compression There were no immediate complications. The patient was transported to the recovery area in stable condition. CONTRAST TYPE AND AMOUNT: Optiray 320 85 ml ATTENDING PHYSICIAN: Dr. Bose was present for the entire procedure. FINDINGS: AORTIC ARCH: The aortic arch is normal. The left common carotid artery arises from a common trunk with the innominate. Innominate artery and subclavian arteries are smooth and nonstenotic. Both proximal common carotid arteries appear normal. CAROTID BIFURCATIONS: The right carotid bifurcation lies at the C3-C4 vertebral level. There is approximately 20% smooth proximal right ICA stenosis. The left carotid bifurcation lies at the C4 vertebral level. There is approximately 33% stenosis of the proximal left ICA just above the bulb. The cervical ICA on the left is overall small in caliber but remains larger than the ipsilateral ECA. The visualized external carotid branches appear normal. CERVICAL VERTEBRAL ARTERIES: Right vertebral artery is dominant. There is approximately 20% narrowing of the right vertebral artery origin. There is approximately 50 to 60% stenosis of the left vertebral artery origin. CRANIAL VESSELS: There is no aneurysm, vascular malformation, stenosis, dissection or vascular tumor stain. Surgical changes of left frontal craniotomy are noted. There is minor atherosclerotic disease of the intracranial ICAs. The left MCA branches are attenuated with relatively small caliber of the left M1 which is likely secondary to a decrease distal MCA flow due to large-volume encephalomalacia. The right MCA, KRISSY, and branches are within normal limits. The ophthalmic arteries arise from the ICAs bilaterally. An ACOM artery is present filling from left to right. A normal caliber A1 segment is present on both sides. Venous phases appear normal. Right-sided parenchymal phases are normal with decreased parenchymal staining in the left MCA territory consistent with known encephalomalacia. IMPRESSION: 1. Approximately 33% stenosis of the proximal left ICA just above the bulb. The left cervical ICA is overall small in caliber which may be secondary to decreased flow to the left MCA. 2. Minor atherosclerosis of intracranial vasculature. There is attenuation of the left MCA branches and decreased caliber of the left M1 segment which may secondary to decreased distal left MCA flow secondary to the encephalomalacia. 3. Approximately 20% smooth stenosis of the proximal right ICA. 4. Dominant right vertebral artery. There is approximately 20% origin stenosis of the right vertebral artery. There is approximately 50 to 60% origin stenosis of the left vertebral artery. Requested By: Dictated By: DEVANTE VOGEL M.D. on Feb 28 2015 6:53P This document has been electronically signed by: PRICILA BOSE M.D. on Mar 01 2015 8:33P [id number] us Historical Provider MD ESTRADA IR PROCEDURES Final R esult documented in this encounter Visit Diagnoses Diagnosis Occlusion and stenosis of left carotid artery Personal history of transient ischemic attack (TIA), and cerebral infarction without residual deficits Osteoarthritis Osteoarthrosis, unspecified whether generalized or localized, unspecified site Hyperlipidemia Other and unspecified hyperlipidemia Rheumatic tricuspid insufficiency Diseases of tricuspid valve Essential (primary) hypertension Unspecified essential hypertension Gastro-esophageal reflux disease without esophagitis documented in this encounter Additional Health Concerns 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 difficile Comment:Germ watcher auto flagging 01/15/2014 01/15/2014 documented as of this encounter
--- OUTSIDE RECORDS SUMMARY | 2024-04-03 17:35 | XMS_ITS | Encounter Summary ---
Author Organization [facility] Facility Care Team Providers Care Chief Credit Officer Name Role Phone Unavailable Primary Care Provider Unavailabl e Encounter Details Date Type Department Care Team (Latest Contact Info) Description 01/04/2014 1:40 AM CDT - 01/04/2014 5:23 PM CDT Hospital Encounter [facility] Urinary tract infection; Essential hypertension; Other late effects of cerebrovascular disease; Swelling of limb; Other and unspecified hyperlipidemia; Other depressive disorder; Tobacco use disorder; Encounter for long-term (current) use of aspirin Social History Tobacco Use Types Packs/Day Years Used Date Smoking Tobacco: Never Assessed Sex and Gender Information Value Date Recorded Sex Assigned at Not on file 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 Gender Identity Not on file Sexual Orientation Not on file documented as of this encounter Last Filed Vital Signs Vital Sign Reading Time Taken Comments Blood Pressure 144/70 01/04/2014 2:15 PM CDT Pulse 84 01/04/2014 2:15 PM CDT Temperature - - Respiratory Rate - - Oxygen Saturation 95% 01/04/2014 2:15 PM CDT Inhaled Oxygen Concentration - - Weight 83.7 kg (184 lb 9.5 oz) 01/04/2014 1:56 A M CDT Height 177.8 cm (5' 10 ) 01/04/2014 1:56 AM CDT Body Mass Index 26.49 01/04/2014 1:56 AM CDT documented in this encounter H&P Notes * Provider, MD Mirna - 01/04/2014 12:00 AM CDT Patient: Curly Angelo Reg No: [id number] U H #: [id number] Admit Dt.: 01/04/2014 : 1955 Room No: [id number] Attending: Geo Barragan M.D. Dictating: Diane Peterson M.D. ADMISSION HISTORY PHYSICAL CHIEF COMPLAINT: Altered mental status. HISTORY OF PRESENT ILLNESS: Mr. Angelo is a 58-year-old male with a history of ischemic left MCA cerebrovascular accident, status post hemicraniectomy in September 2013 for cerebral edema, hypertension, hyperlipidemia, depression, accepted by neurosurgery from an outside hospital and admitted to Medicine for evaluation of altered mental status. Mr. Angelo, per patient's from whom the majority of history is taken, had been doing very well with rehabilitation from his stroke to the point to where he could communicate and he was alert and oriented to the year, location, and self, as well as situation with nonverbal communication. Additionally, he had been having increased strength of his right lower extremity, although he still had significant right upper extremity weakness that was residual from his previous cerebrovascular accident. However, this past Friday, Mr. Angelo had been less alert and had not been as interactive while watching football which is a favorite pastime of his. His said during the day he was much more sleepier, although he was easily arousable. Because of this, his took him to his primary care physician on Friday morning whom then sent Mr. Angelo for [facility] for weakness and lethargy. At [facility] Emergency Department the patient underwent magnetic resonance imaging which was subsequently read by our radiologist's as well, showing no interval change in his imaging from his followup imaging from 12/29/13. The patient was subsequently accepted by Neurosurgery here and arrived in the ED. In the emergency department, Neurosurgery saw patient and noted that he was back at his baseline; however, wanted Neurology consulted to evaluate for infectious versus other cause of altered mental status. Neurology saw the patient in the emergency department and per the ED report they stated that the altered mental status as well as some possible increased weakness of the right lower extremity was likely a component of recrudescence. They recommended infectious and metabolic workup to evaluate the possible recrudescence. The patient also underwent a brain magnetic resonance imaging in our emergency department and per report from the emergency department, there were no changes from prior. Of note, patient's vital signs were stable during his emergency department stay. Otherwise, the patient was given Cipro and Vicodin in the ED, the Cipro being for pyuria and concern for a urinary tract infection. Talking further with the , she confirmed that the patient had basically had increased lethargy on Friday as well as today, although had had improved significantly by late Friday, but he was not yet quite back to baseline. His said that he is currently using a walker at baseline, although she feels like his right leg may be a little weaker than it had been several days ago with his current episode. Otherwise, she says that his right arm was at baseline with no ability to move it. To me, patient was arousable but difficult to get a complete history from, which was difficult to tell whether it was because of his mental status or because it was 2:30 in the morning. Otherwise, the stated that the patient had not had any fevers, chills, cough, shortness of breath, and had not complained of urinary pain or incontinence, although his urine did have a foul smell to it. Of note, the patient's did state that patient ran out of all of his medications on Friday and the only medication he had taken since Friday was his gabapentin. PAST MEDICAL/SURGICAL HISTORY: 1. Left ischemic cerebrovascular accident of the MCA territory requiring hemicraniotomy in September 2013. The patient has residual right-sided deficits. Of note, there was noted to be intraluminal material in the left distal common carotid during that workup and external carotid occlusion for which the patient is currently on an aspirin and a statin. 2. Hypertension. 3. Hyperlipidemia. 4. Tobacco. 5. Depression. 6. Lumbar surgery/lower back pain. 7. Left knee surgery. 8. Status post removed G-tube for resolved dysphagia during cerebrovascular accident. MEDICATIONS: 1. Vicodin 10/325. 2. Aspirin 325 daily. 3. Atorvastatin 40 mg daily. 4. Escitalopram 20 mg daily. 5. Gabapentin 600 mg three times a day. 6. Metoprolol 25 mg twice a day. 7. Hydrochlorothiazide 25 mg daily. ALLERGIES: No known diagnosed allergies. FAMILY HISTORY: Significant for emphysema and chronic obstructive pulmonary disease. SOCIAL HISTORY: [id number] history of smoking. No history of alcohol or drug abuse. Lives at home with his . Currently on disability. REVIEW OF SYSTEMS: Per history of present illness. All other systems negative. PHYSICAL EXAMINATION: Vital Signs: Temperature 36.8, heart rate 86, respirations 16, blood pressure 140/58, 99% on room air. Constitutional: Well-developed, well-nourished male in no apparent distress. Sleeping at time of examination. Was arousable and did respond to commands such as his grabbing my finger, but would easily fall back asleep as well. HEENT: Mucous membranes moist. Status post left hemicraniectomy currently with a skin flap without any evidence of infection or pathology. Pupils equal, round, reactive to light. Neck: No cervical or supraclavicular lymphadenopathy appreciated. Chest: Regular rate and rhythm. No murmurs, rubs, or gallops appreciated. No jugulovenous distention appreciated. Lungs: Clear to auscultation bilaterally, unlabored respirations. Abdomen: Soft, nontender, nondistended. Previous G-tube site healing nicely. Genitourinary: No suprapubic tenderness appreciated. Extremities: Slightly more swelling of the right lower extremity as compared to the left lower extremity that patient's said had been new over the last week or so. Neurologic: Arousable but would not participate regarding orientation. Freely moved left lower extremity. Could reach up and grab my left fingers and had full strength left upper extremity. Left upper extremity with flaccid paralysis. Left lower extremity: Patient was not fully cooperative with exam of left lower extremity, although spontaneous movement was appreciated. Right lower extremity without any movement at all. Right ankle with clonus on examination. Right foot with indeterminate Babinski sign. LABORATORY AND X-RAY DATA: 1. Basic metabolic panel: Sodium 143, potassium 4.4, chloride 106, carbon dioxide 27, BUN 14, creatinine 0.73, glucose 90, calcium 9.5. 2. Complete blood count: White blood cell count 7.8, hemoglobin 12.1, platelets 316. 3. Coags: INR 1.22, PTT 34.4. 4. UDS positive for opiates and THC. 5. Erythrocyte sedimentation rate elevated at 44. 6. Urinalysis significant for 7 white blood cells, 2 epithelial cells, positive nitrites and positive leukocyte esterase. 7. Troponin less than 0.03. 8. Chest x-ray clear without any consolidations, pneumothorax, or effusion appreciated. 9. EKG with normal sinus rhythm unchanged since 10/19. 10. Outside hospital computed tomography scan with no interval change from CTA of head and neck dated 12/29/2013, postsurgical changes of left craniotomy with unchanged size of associated fluid collection. ASSESSMENT: Mr. Angelo is a 58-year-old male with a history of recent large left ischemic cerebrovascular accident requiring hemicraniotomy for cerebral swelling who had a residual right-sided weakness, who had been progressing well with therapy, brought to the emergency department, now admitted with some lethargy. PLAN: 1. Weakness/lethargy likely represents recrudescence from previous cerebrovascular accident in the setting of a urinary tract infection. However, it may be that patient may be having adverse reaction from withdrawal from medications including the escitalopram. For this we will treat his urinary tract infection at this time and restart his home medications. 2. Pyuria likely representing a urinary tract infection. Cultures are pending for this and we will continue ceftriaxone at this point. The patient did receive one dose of Cipro in the ED. As cultures and sensitivities return, we can narrow antibiotics, although it is likely we could treat the patient's urinary tract infection empirically as well. 3. History of cerebrovascular accident. At this point we will continue to treat the patient's cerebrovascular accident with a home statin and aspirin. Additionally, we will get physical therapy and occupational therapy to see patient while inpatient. 4. Hypertension. Patient's goal blood pressure is less than 140/90. 5. Lower extremity swelling. We will order lower extremity Doppler's to evaluate right lower extremity swelling to make sure there is no deep venous thrombosis. 6. Pulmonary nodules. Of note, the patient has pulmonary nodules noted on 12/29/13 chest computed tomography. This will need outpatient followup. 7. Fluid, electrolytes, and nutrition. Patient is currently eating a full diet per his and will be on a low cholesterol, low fat diet. 8. Prophylaxis. Patient is on heparin three times a day. 9. Patient is full code. Diane Peterson M.D. Electronically Signed By Geo Barragan M.D. 01/27/2014 02:25 P Geo Barragan M.D. [facility] #[id number] Editing MT: TD: 01/04/2014 11:40:00 cc: Tanja Padilla M.D. documented in this encounter Consult Notes * Provider, MD Mirna - 01/03/2014 12:00 AM CDT Patient: Curly Angelo Reg No: [id number] [facility] #: [id number] Admit Dt.: 01/03/2014 : 1955 Room No: ER Attending: Consulting: Golden Chowdary M.D. Dictating: Serafin Gonzalez M.D. Service Dt: 01/03/2014 CONSULTATION REPORT PHYSICIAN REQUESTING CONSULTATION: Geo Haywood MD REASON FOR CONSULTATION: Right lower extremity weakness and lethargy. BRIEF HISTORY: This is a 58-year-old right-handed gentleman with a history of hypertension, hyperlipidemia, and depression, who was recently at [facility] in September of 2013 after a left MCA stroke, status post left-sided decompressive craniectomy by Dr. Golden Chowdary on October 22, 2013, who now presents to [facility] Emergency Room with a two day history of lethargy as well as worsening right lower extremity weakness. The patient's family explains that the patient has had some difficulty with lethargy over the past two days, barely keeping his eyes open, and requiring stimulation to wake up. This persisted and the patient's had recommended he be taken to the emergency department. Otherwise, he has been eating well and denied any headache. We are now consulted for neurosurgical evaluation of his right lower extremity weakness. PAST MEDICAL HISTORY: 1. Hypertension. 2. Depression. 3. Prior lumbar surgeries in [address] Bui at [facility]. 4. Left knee surgery. 5. History of left MCA stroke, status post decompressive hemicraniectomy on October 22, [address] Golden Chowdary. MEDICATIONS: 1. Hydrocodone 10/325. 2. Aspirin 325. 3. Atorvastatin 40 mg. 4. Escitalopram 20. 5. Gabapentin 600 three times a day. 6. Metoprolol 25 twice a day. 7. Hydrochlorothiazide 25 daily. FAMILY HISTORY: Emphysema and chronic obstructive pulmonary disease. SOCIAL HISTORY: Lives in [place] at home with his . 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 He has a [id number] history of smoking. No alcohol and no drugs. PHYSICAL EXAMINATION: Constitutional: The patient opens eyes spontaneously, regards, follows some commands. He is oriented to time and person by choice. HEENT: His pupils are 3 to 2 bilaterally. His extraocular movements are grossly intact. His face is grossly symmetric. He does not protrude his tongue. Neurologic: He has a right-sided hemiparesis, 2/5 strength in his right lower extremity and 5/5 strength on his left side in all muscle groups. He has both expressive and receptive aphasia. His speech is dysarthric and he is minimally verbal. LABORATORY AND X-RAY DATA: Troponin negative. White count 13.9, hemoglobin 11.3, hematocrit 33.2, platelets 392. Relevant labs are pending. Relevant imaging: Head computed tomography shows evolving left MCA infarct with postsurgical changes with stable midline shift compared to prior head computed tomography with moderate enlargement in lateral ventricle size compared to previous head computed tomography. IMPRESSION AND RECOMMENDATIONS: This is a 58-year-old right-handed gentleman with a history of hypertension, hyperlipidemia, with recent left middle cerebral artery stroke, status post decompressive hemicraniectomy by Dr. Chowdary on October 22, 2013 who now presents with worsening lethargy over the past two days. The patient appears to have returned to his baseline, awake and alert and interactive with family members. At this time we recommend Neurology consult for infectious workup and evaluation of altered mental status. We will continue to follow along. Please obtain a complete blood count, basic metabolic panel, type and screen, coagulations, urinalysis, electrocardiogram, and a chest x-ray. Further plans will be discussed with chief resident, Candido Braun, and attending, Dr. Golden Chowdary. Reviewed by Serafin Gonzalez M.D. 01/04/2014 08:26 A Serafin Gonzalez M.D. Electronically Signed By Golden Chowdary M.D. 01/05/2014 07:31 P Golden Chowdary M.D. [facility] #[id number] Editing MT: TD: 01/03/2014 15:43:00 cc: Tanja Corado M.D. documented in this encounter Plan of Treatment Not on file documented as of this encounter Procedures Procedure Name Priority Date/Time Associated Diagnosis Comments VASCULAR LABORATORY REPORT 01/04/2014 VASCULAR LABORATORY REPORT 01/04/2014 DISCHARGE LABORATORY CUMULATIVE REPORT Routine 01/04/2014 12:00 AM CDT MRI BRAIN W WO CONTRAST Routine 01/04/20 14 9:09 PM CDT URINE (AEROBIC) CULTURE, CDR Routine 01/03/2014 5:55 PM CDT URINE MICROSCOPY Routine 01/03/2014 5:07 PM CDT URINALYSIS Routine 01/03/2014 5:07 PM CDT SERUM C-REACTIVE PROTEIN Routine 01/03/2014 5:00 PM CDT BLOOD ERYTHROCYTE SEDIMENTATION RATE (ESR) Routine 01/03/2014 5:00 PM CDT URINE DRUG SCREEN Routine 01/03/2014 2:4 6 PM CDT OUTSIDE ED PLAIN FILM REFERENCE Routine 01/03/2014 2:38 PM CDT XR CONSULT OF OUTSIDE FILMS (PEDS ONLY) Routine 01/03/2014 2:29 PM CDT SERUM TROPONIN I Routine 01/03/2014 2:00 PM CDT PLASMA PROTHROMBIN TIME (PT) Routine 01/03/2014 2:00 PM CDT PLASMA PARTIAL THROMBOPLASTIN TIME (PTT) Routine 01/03/2014 2:00 PM CDT PLASMA BASIC METABOLIC PANEL Routine 01/03/2014 2:00 PM CDT BLOOD CELL COUNT (CBC) Routine 4 2:00 PM CDT XR CHEST 1 VIEW Routine 01/03/2014 1:38 PM CDT BLOOD GLUCOSE, POC Routine 01/03/2014 1: 37 PM CDT URINE OPIATES CONFIRMATION Routine 01/03/2014 9:46 AM CDT ALL MICROBIOLOGY REPORT SECTION Routine 01/03/2014 12:00 AM CDT documented in this encounter Results * Discharge Laboratory Cumulative Report (01/04/2014 12:00 AM CDT) 01/04/2014 Narrative HISTORICAL RESULTS - 01/05/2014 3:20 PM CDT ?[facility] ?Department of Laboratories ? [address] [facility] [address] ? [place], [place] [address] Patient Name: ??CURLY ANGELO [facility] Rec Number: [id number] Fin Number: ?[id number] Date: ?1955 Sex/Age: ? Male 58 years Admit Date: ?01/04/2014 Discharge Date: 01/04/2014 Doctor: ?MEDICINE , 1302 Facility: ?[facility] Location: ?OTHER Chart Printed: 01/05/2014 15:20 ?? * Abnormal ?? C Critical ?? f Footnote ?? ^ Corrected ?? L Low ?? H High ? i Interp Data ?? @ Reference Lab ?Chart Type:Cumulative ? SELECTED ELECTROLYTES ?Test: Sodium ? Plasma Potassium ??Chloride ? Reference: [135-145] ??[3.3-4.9] ? [97-110] ? Units: mmol/L ? mmol/L ?mmol/L 01/03/2014 ?? 14:00:00 ?? 143 ?4.4 ? 106 ?Test: Total CO2 ??Anion Gap ? Reference: [22-32] ?[0-16] ? Units: mmol/L ? mmol/L 01/03/2014 ?? 14:00:00 ?? 27 ? 10 ? STANDARD BLOOD CHEMISTRY ?Test: BUN ? Creatinine ?? Glucose ?? Total Calcium ? Reference: [8-25] ??[0.70-1.30] ??[70-199] ??[8.6-10.3] ? Units: mg/dL ?? mg/dL ?mg/dL ? mg/dL 01/03/2014 ?? 14:00:00 ?? 14 ?0.73 ? 90 ?9.5 ? CARDIAC PROTEINS ?Test: Troponin I i ? Reference: [0.00-0.03] ? Units: ng/mL 01/03/2014 ?? 14:00:00 ?? <0.03 ? CARDIAC PROTEINS 01/03/2014 14:00:00 Troponin I: Interpretive Data Serial determinations are recommended for the diagnosis of myocardial infarction (Third [place] Definition of Myocardial Infarction. ??J Am Mary Cardiol 2012;60:1581-98). Current interpretive data was last revised on 13. ? URINE TOXICOLOGY ?Test: Opiates Confirmation, MS i ??Codeine, Free ? Reference: ? Units: ? ng/mL 01/03/2014 ?? 14:46:00 ?? Confirmed Positive ?<50 01/03/2014 14:46:00 Opiates Confirmation, MS: Interpretive Data This test only detects free, unconjugated drugs. The absence of expected drug(s) and/or metabolite(s) may indicate non-compliance, inappropriate timing of specimen collection relative to the time of dosing, variability in absorption, diluted or adulterated urine, or other testing limitations. Questions concerning interpretation should be directed to the laboratory. The results of this test are to be used only for medical purposes and are not suitable for forensic use. Current interpretive data was last revised on 2012. 01/03/2014 14:46:00 ??Opiates Conf MS Ur: This test was developed using an analyte specific reagent. ??Its performance characteristics were determined by the [facility] in a manner consistent with CLIA requirements. ??This test has not been cleared or approved by the U.S. Food and Drug Administration. ?Test: 6-Acetylmorphine, Total ??Oxycodone, Free ? Reference: ? Units: ng/mL ?ng/mL 01/03/2014 ?? 14:46:00 ?? <5 ? <50 ?Test: Hydrocodone, Total ??Morphine, Free ? Reference: ? Units: ng/mL ? ng/mL 01/03/2014 ?? 14:46:00 ?? 115 ? <50 ?Test: Hydromorphone, Free ? Reference: ? Units: ng/mL 01/03/2014 ?? 14:46:00 ?? <50 ? URINE/GASTRIC DRUG SCREEN ?Test: Amphet Class i ??Barbs Class i ? Reference: ? Units: 01/03/2014 ?? 14:46:00 ?? None detected ?? None detected 01/03/2014 14:46:00 Amphet Class: Interpretive Data Immunoassay Screen cutoff level 300 ng/mL. Drug results are to be used only for medical purposes. ??All results, especially unconfirmed screening results, must not be used for non medical purposes. Current interpretive data was last revised 06. 01/03/2014 14:46:00 Barbs Class: Interpretive Data Immunoassay Screen cutoff level 200 ng/mL. Drug results are to be used only for medical purposes. ??All results, especially unconfirmed screening results, must not be used for non medical purposes. Current interpretive data was last revised 06. ?Test: Benzodiazepines i ??Cannabinoids, Scrn i ? Reference: ? Units: 01/03/2014 ?? 14:46:00 ?? None detected ?Positive Screen 01/03/2014 14:46:00 Benzodiazepines: Interpretive Data Immunoassay Screen cutoff level 200 ng/mL. Drug results are to be used only for medical purposes. ??All results, especially unconfirmed screening results, must not be used for non medical purposes. Current interpretive data was last revised 06. 01/03/2014 14:46:00 Cannabinoids, Scrn: Interpretive Data Immunoassay Screen cutoff level 50 ng/mL. Drug results are to be used only for medical purposes. ??All results, especially unconfirmed screening results, must not be used for non medical purposes. Current interpretive data was last revised 06. ?Test: Cocaine Metabolite i ??Opiate Class i ? Reference: ? [None Detected] ? Units: 01/03/2014 ?? 14:46:00 ?? None detected ? Confirmed positive ??*^ 01/03/2014 14:46:00 Cocaine Metabolite: Interpretive Data Immunoassay Screen cutoff level 150 ng/mL. Drug results are to be used only for medical purposes. ??All results, especially unconfirmed screening results, must not be used for non medical purposes. Current interpretive data was last revised 06. ? URINE/GASTRIC DRUG SCREEN 01/03/2014 14:46:00 Opiate Class: Interpretive Data Immunoassay Screen cutoff level 300 ng/mL. Drug results are to be used only for medical purposes. ??All results, especially unconfirmed screening results, must not be used for non medical purposes. Current interpretive data was last revised 2006. 01/03/2014 14:46:00 ??Opiate Class: Corrected from Presumptive on 01/04/2014 15:13:36 by MES ?Test: Phencyclidine i ? Reference: ? Units: 01/03/2014 ?? 14:46:00 ?? None detected 01/03/2014 14:46:00 Phencyclidine: Interpretive Data Immunoassay Screen cutoff level 25 ng/mL. Drug results are to be used only for medical purposes. ??All results, especially unconfirmed screening results, must not be used for non medical purposes. Current interpretive data was last revised 06. ?URINALYSIS ?Macroscopic ?Test: Color ? Clarity ??Specific [place] ??pH ? Reference: [Yellow] ??[Clear] ??[1.003-1.030] ? [5.0-8.0] ? Units: 01/03/2014 ?? 17:07:00 ?? Yellow ?Clear ?1.012 ? 8.0 ?Test: Albumin ?? Glucose ? Ketones ? Bilirubin ? Reference: [Trace] ?? [Negative] ??[Negative] ??[Negative] ? Units: 01/03/2014 ?? 17:07:00 ?? Negative ??Negative ?Negative ?Negative ?Test: Blood ? Urobilinogen ??Nitrite ? Reference: [Negative] ??[0.0-2.0] ? [Negative] ? Units: ? mg/dL 01/03/2014 ?? 17:07:00 ?? Negative ?<2.0 ?Positive ??* ?Test: Leuk Esterase ? Reference: [Negative] ? Units: 01/03/2014 ?? 17:07:00 ?? 1+ ??* ?URINALYSIS ?Microscopic ?Test: Epithl Squam ??Mucus Thrds ??RBC Ur ??WBC Ur ? Reference: ?[0-3] ?? [0-5] ? Units: /LPF ?/HPF ? /HPF ?/HPF 01/03/2014 ?? 17:07:00 ?? 2 ? Small ?2 ? 7 ??H ?Test: Bacteria Ur ??Epithl Renl Ur ? Reference: [Trace] ?[0-0] ? Units: ?/HPF 01/03/2014 ?? 17:07:00 ?? 1+ ? 0 ? COMPLETE BLOOD COUNT ?Test: WBC ?RBC ?Hgb ? Reference: [3.8-9.8] ??[4.50-5.70] ??[13.8-17.2] ? Units: K/cumm ? M/cumm ? g/dL 01/03/2014 ?? 14:00:00 ?? 7.8 ?3.62 ??L ?12.1 ??L ?Test: Hct ?Platelet Ct ??MCV ? Reference: [40.7-50.3] ??[140-440] ?[80.0-97.6] ? Units: % ?K/cumm ? fL 01/03/2014 ?? 14:00:00 ?? 36.5 ??L ?316 ?100.8 ??H ?Test: MCH ?MCHC ? RDW ? Reference: [26.7-33.7] ??[32.7-35.5] ??[11.8-14.6] ? Units: pg ? g/dL ? % 01/03/2014 ?? 14:00:00 ?? 33.4 ? 33.1 ? 13.0 ?Test: MPV ? Reference: [6.8-10.4] ? Units: fL 01/03/2014 ?? 14:00:00 ?? 8.1 ? AUTOMATED WHITE CELL DIFFERENTIAL ?Test: Neut Pct Auto ??Lymph Pct Auto ??[place] Pct Auto ? Reference: [38.7-74.5] ?[20.0-54.3] ? [4.3-13.5] ? Units: % ?% ? % 01/03/2014 ?? 14:00:00 ?? 74.4 ? 15.5 ??L ? 6.3 ?Test: Eos Pct Auto ??Baso Pct Auto ??Neut Abs Auto ? Reference: [0.0-6.0] ? [0.0-3.0] ?[1.8-6.6] ? Units: % ? % ?K/cumm 01/03/2014 ?? 14:00:00 ?? 3.3 ? 0.5 ?5.8 ? AUTOMATED WHITE CELL DIFFERENTIAL ?Test: Lymph Abs Auto ??[place] Abs Auto ??Eos Abs Auto ? Reference: [1.2-3.3] ? [0.2-1.2] ?[0.0-0.5] ? Units: K/cumm ?K/cumm ? K/cumm 01/03/2014 ?? 14:00:00 ?? 1.2 ? 0.5 ?0.3 ?Test: Baso Abs Auto ? Reference: [0.0-0.2] ? Units: K/cumm 01/03/2014 ?? 14:00:00 ?? 0.0 ? MISCELLANEOUS HEMATOLOGY ?Test: ESR ? Reference: [0-15] ? Units: mm/H 01/03/2014 ?? 17:00:00 ?? 44 ??H ? HEMOSTASIS AND THROMBOSIS ?Routine Coagulation Studies ?Test: PT ?INR i ?aPTT i ? Reference: [9.0-12.0] ??[0.90-1.20] ??[25.0-37.0] ? Units: sec ?sec 01/03/2014 ?? 14:00:00 ?? 12.9 ??H ? 1.22 ??H ?34.4 01/03/2014 14:00:00 INR: Interpretive Data Inpatient therapeutic ranges* Atrial fibrillation ?2.0-3.0 INR Venous thrombo-embolism ?2.0-3.0 INR Bioprosthetic heart valve ?* Mechanical heart valve, bileaflet or tilting disk,aortic position ? 2.0-3.0 INR All other,or bileaflet or tilting disk, in mitral position ? 2.5-3.5 INR *See the pharmacy resource directory (PHRED) for an updated copy of the Tool Book at [email or web address] Current Interpretive Data was last revised 2011. 01/03/2014 14:00:00 aPTT: Interpretive Data Therapeutic heparin range:60.0 - 94.0 sec based on correlation with therapeutic heparin activity range of 0.3 -0.7 Units/mL. Current interpretive data was last revised on 2011. ? SEROLOGY-BACTERIAL TESTS ?Test: C-Reactive Protein ? Reference: [0.0-9.9] ? Units: mg/L 01/03/2014 ?? 17:00:29 ?? 15.3 ??H ?POINT OF CARE TESTS ? Chemistry ?Test: Glucose POC ? Reference: [70-199] ? Units: mg/dL 01/03/2014 ?? 13:37:00 ?? 113 ? MICROBIOLOGY - ALL TESTS ? PROCEDURE: Urine Culture ?SOURCE: Urine COLLECTED: 01/03/14 ??1755 ? BODY SITE: STARTED: 01/03/14 ??1830 FREE TEXT SOURCE: FINAL REPORT REPORTED: 01/05/14 1327 Greater than or equal to 50,000 colonies/ml of: Escherichia coli SUSCEPTIBILITY RESULTS Escherichia coli ? SUSCEPTIBLE: Ampicillin,Cefazolin, ?Nitrofurantoin,Gentamicin, ?Trimethoprim with Sulfamethoxazole, ?Meropenem,Cefepime,Ciprofloxacin, ?Ceftriaxone, ?Piperacillin/Tazobactam ORDER COMMENTS (1)Received in transport media. ? MICROBIOLOGY - URINE ? PROCEDURE: Urine Culture ?SOURCE: Urine COLLECTED: 01/03/14 ??1755 ? BODY SITE: STARTED: 01/03/14 ??1830 FREE TEXT SOURCE: FINAL REPORT REPORTED: 01/05/14 1327 Greater than or equal to 50,000 colonies/ml of: Escherichia coli SUSCEPTIBILITY RESULTS Escherichia coli ? SUSCEPTIBLE: Ampicillin,Cefazolin, ?Nitrofurantoin,Gentamicin, ?Trimethoprim with Sulfamethoxazole, ?Meropenem,Cefepime,Ciprofloxacin, ?Ceftriaxone, ?Piperacillin/Tazobactam ORDER COMMENTS (1)Received in transport media. us Historical Provider LAB BLOOD ORDERABLES Myran l Result HISTORICAL RESULTS * VASCULAR LABORATORY REPORT (01/04/2014) Anatomical Region Laterality Modality Ultrasound Narrative 01/04/2014 Ordered by an unspecified provider. us Historical Provider CV VASCULAR PROCEDURES Fi nal Result * VASCULAR LABORATORY REPORT (01/04/2014) Anatomical Region Laterality Modality Ultrasound Narrative 01/04/2014 Ordered by an unspecified provider. us Historical Provider CV VASCULAR PROCEDURES Fi nal Result * MRI Brain WWO Contrast (01/03/2014 9:09 PM CDT) Anatomical Region Laterality Modality Head and Neck N/A Magnetic Resonan ce 01/03/2014 9:09 PM CDT Narrative 01/04/2014 12:58 PM CDT NICOLAS DAMON M.D. CLARICE MCGREGOR M.D. FINAL REPORT The radiology attending physician has personally reviewed this study, and has reviewed and/or edited this written report and agrees with it. ACC# ??Date Time ??Exam [id number] Jan 03, 2014 21:09:00 [id number] MRI Brain wo&with contrast EXAMINATION: ?? Magnetic resonance imaging (MRI) of the brain and brainstem without and with ??contrast HISTORY: ??Acute mental status change, rule out CVA TECHNIQUE: Multiplanar, multisequences of the brain were performed as part of a general brain protocol without and with ??intravenous contrast. Contrast information: Intravenous contrast used: Multihance 0.1mmol/kg16 ml. Comparison: ??CT of the head from outside hospital dated 01/13/2014 FINDINGS: BRAIN: There is extensive encephalomalacia involving the entire left middle cerebral artery (MCA) consistent with remote infarct. Posterior changes of left frontal, temporal and parietal craniectomy is noted. There is a large crescentic fluid collection at the craniotomy surgical bed measuring up to 11 cm in AP dimension and 1.4 cm in greatest transverse dimension. This fluid collection shows no suspicious rim enhancement or diffusion restriction suggestive of abscess. 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 The corpus callosum is normal in shape and signal intensity. The pituitary and sella are normal. The craniocervical junction are unremarkable. Diffusion weighted images reveal no hyperintensities to suggest acute cerebral infarction. The susceptibility ??weighted sequences reveal no evidence of acute or chronic hemorrhage. The ventricles are normal in size and position without evidence of hydrocephalus. ??The axial FLAIR images revealed mild periventricular white matter changes likely representing sequela of small vessel ischemic disease. There are no areas of abnormal contrast enhancement. The visualized portions of the orbits, mastoids and paranasal sinuses are unremarkable. Normal flow voids are demonstrated in the carotid arteries and basilar artery. IMPRESSION: ?? 1. ??Extensive encephalomalacia involving the entire left MCA territory consistent with remote infarction. There is a fluid collection involving the left hemispheric craniectomy. This may represent a postoperative seroma versus a pseudomeningocele. The sterility of this fluid collection cannot be assessed, but there is no suspicious rim enhancement or diffusion restriction suggestive of abscess. Requested By: ABDI BOGGS M.D. Dictated By: ?? CLARICE MCGREGOR M.D. ??on Dec 10:32A This document has been electronically signed by: NICOLAS DAMON M.D. on Dec?2013 12:58P [id number] Procedure Note Provider, MD Mirna - 07/28/2016 NICOLAS DAMON M.D. CLARICE MCGREGOR M.D. FINAL REPORT The radiology attending physician has personally reviewed this study, and has reviewed and/or edited this written report and agrees with it. ACC# Date Time Exam [id number] Jan 03, 2014 21:09:00 [id number] MRI Brain wo&with contrast EXAMINATION: Magnetic resonance imaging (MRI) of the brain and brainstem without and with contrast HISTORY: Acute mental status change, rule out CVA TECHNIQUE: Multiplanar, multisequences of the brain were performed as part of a general brain protocol without and with intravenous contrast. Contrast information: Intravenous contrast used: Multihance 0.1mmol/kg16 ml. Comparison: CT of the head from outside hospital dated 01/13/2014 FINDINGS: BRAIN: There is extensive encephalomalacia involving the entire left middle cerebral artery (MCA) consistent with remote infarct. Posterior changes of left frontal, temporal and parietal craniectomy is noted. There is a large crescentic fluid collection at the craniotomy surgical bed measuring up to 11 cm in AP dimension and 1.4 cm in greatest transverse dimension. This fluid collection shows no suspicious rim enhancement or diffusion restriction suggestive of abscess. 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 The corpus callosum is normal in shape and signal intensity. The pituitary and sella are normal. The craniocervical junction are unremarkable. Diffusion weighted images reveal no hyperintensities to suggest acute cerebral infarction. The susceptibility weighted sequences reveal no evidence of acute or chronic hemorrhage. The ventricles are normal in size and position without evidence of hydrocephalus. The axial FLAIR images revealed mild periventricular white matter changes likely representing sequela of small vessel ischemic disease. There are no areas of abnormal contrast enhancement. The visualized portions of the orbits, mastoids and paranasal sinuses are unremarkable. Normal flow voids are demonstrated in the carotid arteries and basilar artery. IMPRESSION: 1. Extensive encephalomalacia involving the entire left MCA territory consistent with remote infarction. There is a fluid collection involving the left hemispheric craniectomy. This may represent a postoperative seroma versus a pseudomeningocele. The sterility of this fluid collection cannot be assessed, but there is no suspicious rim enhancement or diffusion restriction suggestive of abscess. Requested By: ABDI BOGGS M.D. Dictated By: CLARICE MCGREGOR M.D. on Jan 04 2014 10:32A This document has been electronically signed by: NICOLAS DAMON M.D. on Jan 04 2014 12:58P [id number] Historical Provider MD ESTRADA MRI PROCEDURES Final Result * Urine (aerobic) culture (01/03/2014 5:55 PM CDT) Organism ECOL^22031 3 HISTORICAL RESULTS Urine (Unknown) 01/03/2014 5 :55 PM CDT 01/03/2014 6:30 PM CDT Narrative HISTORICAL RESULTS - 01/05/2014 1:27 PM CDT Greater than or equal to 50,000 colonies/ml of: Escherichia coli Organism Antibiotic Method Susceptibility Escherichia coli Ampicillin Susceptible Escherichia coli Cefazolin Susceptible Escherichia coli Nitrofurantoin Susceptible Escherichia coli Gentamicin Susceptible Escherichia coli Trimethoprim with Sulfamethoxazole Susceptible Escherichia coli Meropenem Susceptible Escherichia coli Cefepime Susceptible Escherichia coli Ciprofloxacin Susceptible Escherichia coli Ceftriaxone Susceptible Escherichia coli Piperacillin/Tazobactam Susceptible Historical Provider LAB MICROBIOLOGY - GENERA L ORDERABLES Final Result Performing Organization Address [facility] Phone Number HISTORICAL RESULTS * (ABNORMAL) Urinalysis (01/03/2014 5:07 PM CDT) Color, ur Yellow Yellow HISTORICAL RESULTS Clarity, ur Clear Clear HISTORIC AL RESULTS Specific gravity, ur 1.012 1.003 - 1.030 HISTORICAL RESULTS pH, ur 8.0 5.0 - 8.0 HISTORICAL RESULTS Protein, ur Negative Trace HISTORIC AL RESULTS Glucose, ur Negative Negative HISTORIC AL RESULTS Ketones, ur Negative Negative HISTORIC AL RESULTS Bilirubin, ur Negative Negative HISTOR ICAL RESULTS U Blood Negative Negative HISTORICAL RESULTS Urobilinogen, quant, ur <2.0 0.0 - 2.0 mg/dl HISTORICAL RESULTS Nitrites, ur Positive(A) Negative HISTO RICAL RESULTS Leukocyte esterase, ur 1+(A) Negative HISTORICAL RESULTS Urine 01/03/2014 5:07 PM CDT Result [facility] Raven Calvert MD LAB BLOOD ORDERABLES Final Resul t Performing Organization Address [facility] Phone Number HISTORICAL RESULTS * (ABNORMAL) Urine microscopy (01/03/2014 5:07 PM CDT) RBC, ur 2 0 - 3 /hpf HISTORICA L RESULTS WBC, ur 7(H) 0 - 5 /hpf HISTORICA L RESULTS Bacteria, ur 1+ Trace HISTORI SHALA RESULTS Epithelial cells, renal, ur 0 0 - 0 /hpf HISTORICAL RESULTS Epithelial cells, squamous, ur 2 /lpf HISTORICAL RESULTS Mucus, ur Small /hpf HISTORICAL RESULTS Urine 01/03/2014 5:07 PM CDT Raven Calvert MD LAB BLOOD ORDERABLES Final Resul t Performing Organization Address [facility] de Phone Number HISTORICAL RESULTS * (ABNORMAL) Blood erythrocyte sedimentation rate (ESR) (01/03/2014 5:00 PM CDT) Erythrocyte sedimentation rate 44.0(H) 0.0 - 15.0 mm/hr HISTORICAL RESULTS Blood specimen (specimen) 01/03/2014 5:00 PM CDT Abdi Boggs MD LAB BLOOD ORDERABLES Final R esult Performing Organization Address [facility] de Phone Number HISTORICAL RESULTS * (ABNORMAL) Serum C-reactive protein (01/03/2014 5:00 PM CDT) C-RP 15.3(H) 0.0 - 9.9 mg/L HISTORICAL RESULTS Serum 01/03/2014 5:00 PM CDT Abdi Boggs MD LAB BLOOD ORDERABLES Final R esult Performing Organization Address [facility] de Phone Number HISTORICAL RESULTS * (ABNORMAL) Urine drug screen (01/03/2014 2:46 PM CDT) Amphetamine, ur None detected HISTORICAL RESULTS Comment: Interpretive Data Immunoassay Screen cutoff level 300 ng/mL. Drug results are to be used only for medical purposes. ??All results, especially unconfirmed screening results, must not be used for non medical purposes. Current interpretive data was last revised 06. Barbiturates, ur None detected HISTORICAL RESULTS Comment: Interpretive Data Immunoassay Screen cutoff level 200 ng/mL. Drug results are to be used only for medical purposes. ??All results, especially unconfirmed screening results, must not be used for non medical purposes. Current interpretive data was last revised 06. Benzodiazepines , ur None detected HISTORICAL RESULTS Comment: Interpretive Data Immunoassay Screen cutoff level 200 ng/mL. Drug results are to be used only for medical purposes. ??All results, especially unconfirmed screening results, must not be used for non medical purposes. Current interpretive data was last revised 06. Cannabinoids, ur Positive Screen HISTORICAL RESULTS Comment: Interpretive Data Immunoassay Screen cutoff level 50 ng/mL. Drug results are to be used only for medical purposes. ??All results, especially unconfirmed screening results, must not be used for non medical purposes. Current interpretive data was last revised 06. Cocaine, ur None detected HISTORICAL RESULTS Comment: Interpretive Data Immunoassay Screen cutoff level 150 ng/mL. Drug results are to be used only for medical purposes. ??All results, especially unconfirmed screening results, must not be used for non medical purposes. Current interpretive data was last revised 06. Opiates, qual, ur Confirmed positive(A) None Detected HISTORICAL RESULTS Comment: Interpretive Data Immunoassay Screen cutoff level 300 ng/mL. Drug results are to be used only for medical purposes. ??All results, especially unconfirmed screening results, must not be used for non medical purposes. Current interpretive data was last revised 2006. Phencyclidine, qual, ur None detected HISTORICAL RESULTS Comment: Interpretive Data Immunoassay Screen cutoff level 25 ng/mL. Drug results are to be used only for medical purposes. ??All results, especially unconfirmed screening results, must not be used for non medical purposes. Current interpretive data was last revised 06. Urine 01/03/2014 2:46 PM CDT us Raven Calvert MD LAB BLOOD ORDERABLES Final Resul t HISTORICAL RESULTS * OUTSIDE ED PLAIN FILM REFERENCE (01/03/2014 2:38 PM CDT) Anatomical Region Laterality Modality N/A Radiographic Tawanna ging 01/03/2014 2:38 PM CDT Narrative 01/03/2014 2:53 PM CDT OUTSIDE IMAGES CURATOR OF MANUSCRIPTS, FINAL REPORT ACC# ??Date Time ??Exam [id number] Jan 03, 2014 14:38:00 [id number] ED Reference Plain Film EXAMINATION: ?Images For Reference Purposes Only IMPRESSION: ?These images have been uploaded for Reference purposes only. ??There will be no separate report generated by a [facility] Radiologist. Requested By: TON HAMILTON M.D. Dictated By: ?? OUTSIDE IMAGES CURATOR OF MANUSCRIPTS, ?? on Dec ??2013 ??2:53P This document has been electronically signed by: OUTSIDE IMAGES CURATOR OF MANUSCRIPTS, ??on Dec?2013 ??2:53P [id number] Procedure Note Provider, MD Mirna - 07/28/2016 OUTSIDE IMAGES CURATOR OF MANUSCRIPTS, FINAL REPORT ACC# Date Time Exam [id number] Jan 03, 2014 14:38:00 [id number] ED Reference Plain Film EXAMINATION: Images For Reference Purposes Only IMPRESSION: These images have been uploaded for Reference purposes only. There will be no separate report generated by a [facility] Radiologist. Requested By: TON HAMILTON M.D. Dictated By: OUTSIDE IMAGES CURATOR OF MANUSCRIPTS, on Jan 03 2014 2:53P This document has been electronically signed by: OUTSIDE IMAGES CURATOR OF MANUSCRIPTS, on Jan 03 2014 2:53P [id number] us Historical Provider IMG XR PROCEDURES Final R esult * XR Interpretation Of Outside Films (01/03/2014 2:29 PM CDT) Anatomical Region Laterality Modality N/A Radiographic Tawanna ging 01/03/2014 2:29 PM CDT Narrative 01/03/2014 5:11 PM CDT FLAVIO HELMS MD, PHD DEB ALLEN M.D. FINAL REPORT The radiology attending physician has personally reviewed this study, and has reviewed and/or edited this written report and agrees with it. ACC# ??Date Time ??Exam [id number] Jan 03, 2014 14:29:00 [id number] ED Consult Neuro CT/MR EXAMINATION: ?? RADIOLOGY CONSULTATION ON OUTSIDE IMAGING STUDY STUDY INITIALLY PERFORMED: ??On 01/03/2014 by [facility]. ?? TYPE OF STUDY: Multiple CT images of the head without intravenous contrast are provided at the time of this interpretation. The protocol was adequate to address the clinical question. ??The outside final report was not provided at the time of this second opinion. TYPE OF CONSULTATION: ??Consult on outside imaging study with images submitted through [facility] DATE OF CONSULTATION: 01/03/2014 REASON FOR CONSULTATION: 58-year-old male status post craniectomy in September 2013 following MCA stroke, with lethargy and left leg weakness. COMPARISON: CT angio dated 12/29/2013. FINDINGS: There are postsurgical changes of a left craniectomy, with an associated fluid collection measuring up to 19 mm in diameter, unchanged in size from recent CT Angio of the head dated 12/29/2013. The CT Angio dated 12/29/2013 was performed with contrast, and showed no unusual enhancement along the cranial defect. There is persistent encephalomalacia in a left MCA territory distribution. IMPRESSION: ?? No interval change from CTA head and neck dated 12/29/2013. Postsurgical changes of left craniectomy with unchanged size of associated fluid collection. The findings, conclusions and recommendations within this report do not replace the initial findings, conclusions ??and recommendations made at the facility where the study was performed based upon the imaging and clinical condition at that time. ??Comparison with the prior report and clinical history is necessary. ??The provided images may or may not represent the [place] source data set and thus may contain changes that may lower the accuracy of this second-opinion interpretation. Requested By: RAVEN CALVERT M.D. Dictated By: ?? DEB ALLEN M.D. ??on Dec ??2013 ??3:57P This document has been electronically signed by: FLAVIO HELMS MD, PHD on Dec ??2013 ??5:11P [id number] Procedure Note Provider, MD Mirna - 07/28/2016 FLAVIO HELMS MD, PHD DEB ALLEN M.D. FINAL REPORT The radiology attending physician has personally reviewed this study, and has reviewed and/or edited this written report and agrees with it. ACC# Date Time Exam [id number] Jan 03, 2014 14:29:00 [id number] ED Consult Neuro CT/MR EXAMINATION: RADIOLOGY CONSULTATION ON OUTSIDE IMAGING STUDY STUDY INITIALLY PERFORMED: On 01/03/2014 by [facility]. TYPE OF STUDY: Multiple CT images of the head without intravenous contrast are provided at the time of this interpretation. The protocol was adequate to address the clinical question. The outside final report was not provided at the time of this second opinion. TYPE OF CONSULTATION: Consult on outside imaging study with images submitted through [facility] DATE OF CONSULTATION: 01/03/2014 REASON FOR CONSULTATION: 58-year-old male status post craniectomy in September 2013 following MCA stroke, with lethargy and left leg weakness. COMPARISON: CT angio dated 12/29/2013. FINDINGS: There are postsurgical changes of a left craniectomy, with an associated fluid collection measuring up to 19 mm in diameter, unchanged in size from recent CT Angio of the head dated 12/29/2013. The CT Angio dated 12/29/2013 was performed with contrast, and showed no unusual enhancement along the cranial defect. There is persistent encephalomalacia in a left MCA territorydistribution. IMPRESSION: No interval change from CTA head and neck dated 12/29/2013. Postsurgical changes of left craniectomy with unchanged size of associated fluid collection. The findings, conclusions and recommendations within this report do not replace the initial findings, conclusions and recommendations made at the facility where the study was performed based upon the imaging and clinical condition at that time. Comparison with the prior report and clinical history is necessary. The provided images may or may not represent the [place] source data set and thus may contain changes that may lower the accuracy of this second-opinion interpretation. Requested By: RAVEN CALVERT M.D. Dictated By: DEB ALLEN M.D. on Jan 03 2014 3:57P This document has been electronically signed by: FLAVIO HELMS MD, PHD on Jan 03 2014 5:11P [id number] Historical Provider IMG XR PROCEDURES Final R esult * Plasma partial thromboplastin time (PTT) (01/03/2014 2:00 PM CDT) Pathologist [facility] APTT 34.4 25.0 - 37.0 seconds HISTORICAL RESULTS Comment: Interpretive Data Therapeutic heparin range:60.0 - 94.0 sec based on correlation with therapeutic heparin activity range of 0.3 -0.7 Units/mL. Current interpretive data was last revised on 2011. Plasma 01/03/2014 2:00 PM CDT Raven Calvert MD LAB BLOOD ORDERABLES Final Resul t HISTORICAL RESULTS * Plasma basic metabolic panel (01/03/2014 2:00 PM CDT) Sodium 143 135 - 145 mmol/L HISTORICAL RESULTS K, pl 4.4 3.3 - 4.9 mmol/L HISTORICAL RESULTS Chloride 106 97 - 110 mmol/L HISTORICAL RESULTS CO2 27 22 - 32 mmol/L HISTORICAL RESULTS A. gap 10 0 - 16 mmol/L HISTORICAL RESULTS Glucose 90 70 - 199 mg/dl HISTORICAL RESULTS BUN 14 8 - 25 mg/dl HISTORICAL RESULTS Creatinine 0.73 0.70 - 1.30 mg/dl HISTORICAL RESULTS Calcium 9.5 8.6 - 10.3 mg/dl HISTORICAL RESULTS Plasma 01/03/2014 2:00 PM CDT us Raven Calvert MD LAB BLOOD ORDERABLES Final Resul t Performing Organization Address [facility] Co de Phone Number HISTORICAL RESULTS * Serum troponin I (01/03/2014 2:00 PM CDT) Troponin I <0.03 0.00 - 0.03 ng/ml HISTORICAL RESULTS Comment: Interpretive Data Serial determinations are recommended for the diagnosis of myocardial infarction (Third [place] Definition of Myocardial Infarction. ??J Am Mary Cardiol 2012;60:1581-98). Current interpretive data was last revised on 13. Serum 01/03/2014 2:00 PM CDT us Raven Calvert MD LAB BLOOD ORDERABLES Final Resul t Performing Organization Address [facility] Co de Phone Number HISTORICAL RESULTS * (ABNORMAL) Plasma prothrombin time (PT) (01/03/2014 2:00 PM CDT) Prothrombin time (PT) 12.9(H) 9.0 - 12.0 seconds HISTORICAL RESULTS INR 1.22(H) 0.90 - 1.20 HISTORIC AL RESULTS Comment: Interpretive Data Inpatient therapeutic ranges* Atrial fibrillation ?2.0-3.0 INR Venous thrombo-embolism ?2.0-3.0 INR Bioprosthetic heart valve ?* Mechanical heart valve, bileaflet or tilting disk,aortic position ? 2.0-3.0 INR All other,or bileaflet or tilting disk, in mitral position ? 2.5-3.5 INR *See the pharmacy resource directory (PHRED) for an updated copy of the Tool Book at [email or web address] Current Interpretive Data was last revised 2011. Plasma 01/03/2014 2:00 PM CDT us Raevn Calvert MD LAB BLOOD ORDERABLES Final Resul t HISTORICAL RESULTS * (ABNORMAL) Blood cell count (CBC) (01/03/2014 2:00 PM CDT) WBC 7.8 3.8 - 9.8 K/cumm HISTORICAL RESULTS Lymphocytes, abs 1.2 1.2 - 3.3 K/cumm HISTORICAL RESULTS RBC 3.62(L) 4.50 - 5.70 M/cumm HISTORICAL RESULTS Monocytes, absolute 0.5 0.2 - 1.2 K/cumm HISTORICAL RESULTS Hgb 12.1(L) 13.8 - 17.2 g/dl HISTORICAL RESULTS Eosinophils, abs 0.3 0.0 - 0.5 K/cumm HISTORICAL RESULTS Hct 36.5(L) 40.7 - 50.3 % HISTORICAL RESULTS Basophils, abs 0.0 0.0 - 0.2 K/cumm HISTORICAL RESULTS MCV 100.8(H) 80.0 - 97.6 fl HISTORICAL RESULTS MCH 33.4 26.7 - 33.7 pg HISTORICAL RESULTS MCHC 33.1 32.7 - 35.5 g/dl HISTORICAL RESULTS Rdw 13.0 11.8 - 14.6 % HISTORICAL RESULTS Platelets 316 140 - 440 K/cumm HISTORICAL RESULTS MPV 8.1 6.8 - 10.4 fl HISTORICAL RESULTS Neutrophils 74.4 38.7 - 74.5 % HISTORICAL RESULTS Lymphocytes 15.5(L) 20.0 - 54.3 % HISTORICAL RESULTS Monos 6.3 4.3 - 13.5 % HISTORICAL RESULTS Eosinophils 3.3 0.0 - 6.0 % HISTORICAL RESULTS Basophils 0.5 0.0 - 3.0 % HISTORICAL RESULTS Neutrophils, abs 5.8 1.8 - 6.6 K/cumm HISTORICAL RESULTS Blood specimen (specimen) 01/03/2014 2:00 PM CDT us Raven Calvert MD LAB BLOOD ORDERABLES Final Resul t HISTORICAL RESULTS * XR Chest 1 View (01/03/2014 1:38 PM CDT) Anatomical Region Laterality Modality Body, Chest N/A Radiographic Tawanna ging 01/03/2014 1:38 PM CDT Narrative 01/04/2014 12:56 PM CDT Tanja JOYCE M.D. FINAL REPORT The radiology attending physician has personally reviewed this study, and has reviewed and/or edited this written report and agrees with it. ACC# ??Date Time ??Exam [id number] Jan 03, 2014 13:38:00 [id number] Chest 1 view Frontal EXAMINATION: ?? Chest radiograph one view IMPRESSION: ?? Comparison is made to prior study performed on 11/12/2013. The cardiomediastinal contours are normal. The lungs are clear without evidence of focal consolidation, pneumothorax, or pleural effusion. Requested By: RAVEN CALVERT M.D. Dictated By: ?? NICOLAS VANEGAS M.D. ??on Dec ??2013 ??2:24P This document has been electronically signed by: RUSTY SMITH M.D. on Dec ??2013 12:55P [id number] Procedure Note Provider, Mirna, - 07/28/2016 Tanja JOYCE M.D. FINAL REPORT The radiology attending physician has personally reviewed this study, and has reviewed and/or edited this written report and agrees with it. ACC# Date Time Exam [id number] Jan 03, 2014 13:38:00 [id number] Chest 1 view Frontal EXAMINATION: Chest radiograph one view IMPRESSION: Comparison is made to prior study performed on 11/12/2013. The cardiomediastinal contours are normal. The lungs are clear without evidence of focal consolidation, pneumothorax, or pleural effusion. Requested By: RAVEN CALVERT M.D. Dictated By: NICOLAS VANEGAS M.D. on Jan 03 2014 2:24P This document has been electronically signed by: RUSTY SMITH M.D. on Jan 04 2014 12:55P [id number] Historical Provider IMG XR PROCEDURES Final R esult * Blood glucose, POC (01/03/2014 1:37 PM CDT) Glucose, POC, bld 113 70 - 199 mg/dl HISTORICAL RESULTS Blood specimen (specimen) 01/03/2014 1:37 PM CDT Historical Provider LAB BLOOD ORDERABLES Myrna l Result HISTORICAL RESULTS * Urine opiates confirmation (01/03/2014 9:46 AM CDT) Opiates, confirm, ur Confirmed Positive HISTORICAL RESULTS Comment: Interpretive Data This test only detects free, unconjugated drugs. The absence of expected drug(s) and/or metabolite(s) may indicate non-compliance, inappropriate timing of specimen collection relative to the time of dosing, variability in absorption, diluted or adulterated urine, or other testing limitations. Questions concerning interpretation should be directed to the laboratory. The results of this test are to be used only for medical purposes and are not suitable for forensic use. Current interpretive data was last revised on 2012. Codeine, free, ur <50 ng/ml HI STORICAL RESULTS 6-Acetylmorphine, ur <5 ng/ml HISTORICAL RESULTS Oxycodone, free, ur <50 ng/ml HISTORICAL RESULTS Hydrocodone, total, ur 115 ng/ml HISTORICAL RESULTS Morphine, free, ur <50 ng/ml H ISTORICAL RESULTS Hydromorphone, free, ur <50 ng/ml HISTORICAL RESULTS Urine 01/03/2014 9:46 AM CDT Narrative HISTORICAL RESULTS - 01/04/2014 10:08 AM CDT This test was developed using an analyte specific reagent. ??Its performance characteristics were determined by the [facility] in a manner consistent with CLIA requirements. ??This test has not been cleared or approved by the U.S. Food and Drug Administration. us Raven Calvert MD LAB BLOOD ORDERABLES Final Resul t HISTORICAL RESULTS * All Microbiology Report Section (01/03/2014 12:00 AM CDT) 01/03/2014 Narrative HISTORICAL RESULTS - 01/05/2014 4:45 PM CDT ? [facility] ?[address] [facility] [address] ?[place], [place] [address] ? Patient Name: ??CURLY ANGELO ? Med Rec Number: [id number] ? Fin Number: ?[id number] ? Date: ?1955 ? Sex/Age: ? Male 58 years ? Admit Date: ?01/04/2014 ? Discharge Date: 01/04/2014 ? Doctor: ?MEDICINE , 1302 ? Facility: ?[facility] ? Location: ?OTHER ?* Abnormal ??A Alert ??f Footnote ??^ Corrected ??L Low ??H High ?i Interp Data ??@ Ref Lab ? Chart Type:Cumulative ?* * * * MICROBIOLOGY - URINE * * * * ?PROCEDURE: Urine Culture ? SOURCE: Urine ? COLLECTED: 01/03/14 ??1755 ?BODY SITE: ? STARTED: 01/03/14 ??1830 ? FREE TEXT SOURCE: ? FINAL REPORT ? REPORTED: 01/05/14 1327 ? Greater than or equal to 50,000 colonies/ml of: Escherichia coli ? SUSCEPTIBILITY RESULTS ? Escherichia coli ?SUSCEPTIBLE: Ampicillin,Cefazolin, ? Nitrofurantoin,Gentamicin, ? Trimethoprim with Sulfamethoxazole, ? Meropenem,Cefepime,Ciprofloxacin, ? Ceftriaxone, ? Piperacillin/Tazobactam ? ORDER COMMENTS ? (1)Received in transport media. ? us Historical Provider LAB MICROBIOLOGY - GENERA L ORDERABLES Final Result Performing Organization Address City/State/[facility] Co de Phone Number HISTORICAL RESULTS documented in this encounter Visit Diagnoses Diagnosis Urinary tract infection Urinary tract infection, site not specified Essential hypertension Unspecified essential hypertension Other late effects of cerebrovascular disease Swelling of limb Other and unspecified hyperlipidemia Other depressive disorder Tobacco use disorder Encounter for long-term (current) use of aspirin documented in this encounter Additional Health Concerns Infection Onset Date Last Indicated Resolved Time VRE Comment:Germ watcher auto flagging 11/15/2013 11/15/201311/15 5:00 AM CDT documented as of this encounter
--- OUTSIDE RECORDS SUMMARY | 2024-04-03 17:35 | XMS_ITS | Encounter Summary ---
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 Name Role Phone Unavailable Primary Care Provider Unavailabl e Encounter Details Date Type Department Care Team (Latest Contact Info) Description 01/10/2014 8:21 AM CDT - 01/10/2014 4:00 PM CDT Hospital Encounter [facility] Golden Chowdary MD [address] [id number] Other specified acquired deformity of head; Acute respiratory failure (HCC); Intestinal infection due to Clostridium difficile; Other emphysema (HCC); Aphasia, late effect of cerebrovascular disease; 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; Generalized convulsive epilepsy (HCC); Urinary incontinence; Essential hypertension; Other depressive disorder; Tobacco use disorder; Other and unspecified hyperlipidemia Social History Tobacco Use Types Packs/Day Years Used Date Smoking Tobacco: Never Assessed Sex and Gender Information Value Date Recorded Sex Assigned at Not on file 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 Gender Identity Not on file Sexual Orientation Not on file documented as of this encounter Last Filed Vital Signs Vital Sign Reading Time Taken Comments Blood Pressure - - Pulse - - Temperature - - Respiratory Rate - - Oxygen Saturation - - Inhaled Oxygen Concentration - - Weight - - Height 177.8 cm (5' 10 ) 01/04/2014 1:56 AM CDT Body Mass Index - - documented in this encounter Miscellaneous Notes * Op Note - Provider, MD Mirna - 01/10/2014 4:00 PM CDT Patient: Curly Cash Reg No: [id number] U H #: [id number] Admit Dt.: 01/11/2014 : 1955 Pt Type: 100 Room No: OTHER Attending: Golden Chowdary M.D. Surgeon: Golden Chowdary M.D. Dictating: Golden Chowdary M.D. Service Dt: 01/11/2014 OPERATIVE REPORT FIRST VARNISH MIXER: Juani Braun. ANESTHESIA: General endotracheal anesthesia. PREOPERATIVE DIAGNOSIS (ES): 1. History of prior left middle cerebral artery malignant infarction. 2. 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 POSTOPERATIVE DIAGNOSIS (ES): 1. History of prior left middle cerebral artery malignant infarction. 2. 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 NAME OF OPERATION: Left sided cranioplasty using autologous bone flaps of greater than 15 cm in diameter. INDICATIONS FOR PROCEDURE: Mr. Cash is a gentleman who is well known to the Neurosurgery Service, having suffered a left sided malignant cerebral artery infarction, resulting in the need for a bone flap removal, hemicraniectomy and decompression. The patient has been making a good recovery. He presented to my clinic wishing to have his bone flap replaced. We therefore offered him replacement of his own autologous previously harvested bone graft. The risks, benefits and alternatives of surgery were discussed at length with the patient. The risks that we have discussed included bleeding, infection, cerebrospinal fluid leakage, injury to the underlying brain leading to numbness, weakness, loss of speech, loss of cognition, loss of other neurological function, seizures or other neurological deficit. I also emphasized the possibility of medical complications such as deep vein thrombosis, pulmonary embolism, stroke, myocardial infarction, pneumonia, other hospital acquired infection, coma or even . The patient acknowledged all of these risks and asked that we proceed. DESCRIPTION OF PROCEDURE: The patient was brought to the operating room and a timeout performed. He was induced and intubated by anesthesia. He was given two grams of Ancef for preoperative prophylaxis. He was positioned supine with a wedge under his left shoulder to allow access to his head. His hair was shaved in its entirety. The scalp was cleaned meticulously. It was then prepped and draped in a standard fashion. We used a sharp dissection to reopen his preexisting incision line. We then swept the pericranium off of the bone and identified the preexisting dissection plane, where gel film had been laid overlying the previously augmented dura. We continued with dissection circumferentially around the bone edge. Meticulous hemostasis was obtained. We copiously irrigated over the dura. Three central tack up stitches were placed. We plated the bone flap, which was an autologous graft that previously was harvested from the patient. We used Jacinta mini plates and screws and then fixated it to the skull. We then copiously irrigated the wound again. We confirmed that we had good fixation and nice flush surface around the bone. We placed a Hemovac drain. After this we reapproximated the temporalis muscle with 2-0 Vicryl sutures. The galea was also reapproximated with 2-0 Vicryl sutures. Because of poor quality skin along the edges of the wound, we used both a continuous and running vertical mattress suture. After this, the wound was dressed and the patient was awakened by anesthesia. It did appear that he was having a seizure briefly while we were awakening him, but this was addressed with anesthetic methods. Otherwise, the patient was stable to proceed out of the operating room. Attending presence statement: I was present and oversaw the initial phase of the surgery with the exposure of the bone. I was then scrubbed in and participated directly in the replacement of the autologous bone flap. I remained present and participated in the entirety of the skin closure as well. Electronically Signed By Golden Chowdary M.D. 01/21/2014 10:08 A Golden Chowdary M.D. [facility]/nicole #[id number] Editing MT: TD: 01/11/2014 15:34:00 cc: Golden Chowdary M.D. documented in this encounter Plan of Treatment Not on file documented as of this encounter Procedures Procedure Name Priority Date/Time Associated Diagnosis Comments PLASMA BASIC METABOLIC PANEL Routine 01/15/2014 2:46 AM CDT BLOOD CELL COUNT (CBC) Routine 4 2:46 AM CDT DISCHARGE LABORATORY CUMULATIVE REPORT Routine 01/15/2014 12:00 AM CDT VRE SURVEILLANCE SCREEN, CDR Routine 01/14/2014 9:53 AM CDT CLOSTRIDIUM DIFFICILE TOXIN, CDR Routine 01/14/2014 9:53 AM CDT PLASMA BASIC METABOLIC PANEL Routine 01/14/2014 2:31 AM CDT BLOOD CELL COUNT (CBC) Routine 4 2:31 AM CDT ALL MICROBIOLOGY REPORT SECTION Routine 01/14/2014 12:00 AM CDT ALL MICROBIOLOGY REPORT SECTION Routine 01/14/2014 12:00 AM CDT BLOOD CELL COUNT Routine 01/13/2014 8:30 AM CDT PLASMA BASIC METABOLIC PANEL Routine 01/13/2014 7:40 AM CDT SERUM MAGNESIUM Routine 01/13/2014 4:04 AM CDT PLASMA BASIC METABOLIC PANEL Routine 01/13/2014 4:04 AM CDT URINE (AEROBIC) CULTURE, CDR Routine 01/12/2014 6:04 AM CDT URINE MICROSCOPY Routine 01/12/2014 6:04 AM CDT URINALYSIS Routine 01/12/2014 6:04 AM CDT PLASMA BASIC METABOLIC PANEL Routine 01/12/2014 12:07 AM CDT BLOOD CELL COUNT (CBC) Routine 4 12:07 AM CDT ALL MICROBIOLOGY REPORT SECTION Routine 01/12/2014 12:00 AM CDT XR CHEST 1 VIEW Routine 01/11/2014 6:21 PM CDT BLOOD GLUCOSE, POC Routine 01/11/2014 5: 55 PM CDT BLOOD GLUCOSE, POC Routine 01/11/2014 5: 07 PM CDT SERUM TROPONIN I Routine 01/11/2014 5:05 PM CDT SERUM MAGNESIUM Routine 01/11/2014 5:05 PM CDT PLASMA PROTHROMBIN TIME (PT) Routine 01/11/2014 5:05 PM CDT PLASMA PHOSPHORUS Routine 01/11/2014 5:0 5 PM CDT PLASMA PARTIAL THROMBOPLASTIN TIME (PTT) Routine 01/11/2014 5:05 PM CDT PLASMA COMPREHENSIVE METABOLIC PANEL Routine 01/11/2014 5:05 PM CDT BLOOD CELL COUNT (CBC) Routine 4 5:[address] HEAD WO CONTRAST Routine 01/11/2014 4 :03 PM CDT URINE MICROSCOPY Routine 01/11/2014 11:5 4 AM CDT URINALYSIS Routine 01/11/2014 11:54 AM CDT ELECTROCARDIOGRAPHY (ECG) 01/11/2014 URINE (AEROBIC) CULTURE, CDR Routine 01/10/2014 10:51 AM CDT URINE MICROSCOPY Routine 01/10/2014 10:5 1 AM CDT SERUM C-REACTIVE PROTEIN Routine 014 10:51 AM CDT PLASMA PROTHROMBIN TIME (PT) Routine 01/10/2014 10:51 AM CDT PLASMA PARTIAL THROMBOPLASTIN TIME (PTT) Routine 01/10/2014 10:51 AM CDT PLASMA BASIC METABOLIC PANEL Routine 01/10/2014 10:51 AM CDT BLOOD ERYTHROCYTE SEDIMENTATION RATE (ESR) Routine 01/10/2014 10:51 AM CDT URINALYSIS Routine 01/10/2014 10:51 AM CDT BLOOD CELL COUNT (CBC) Routine 4 10:51 AM CDT BLOOD ABO, RH, INDIRECT AB SCREEN Routine 01/10/2014 10:51 AM CDT ALL MICROBIOLOGY REPORT SECTION Routine 01/10/2014 12:00 AM CDT documented in this encounter Results * Plasma basic metabolic panel (01/15/2014 2:46 AM CDT) Sodium 142 135 - 145 mmol/L HISTORICAL RESULTS K, pl 3.7 3.3 - 4.9 mmol/L HISTORICAL RESULTS Comment: Hemolyzed; (++); potassium value may be falsely elevated by as much as 0.3 - 0.5 mmol/L. Suggest redraw and reanalysis. Chloride 104 97 - 110 mmol/L HISTORICAL RESULTS CO2 25 22 - 32 mmol/L HISTORICAL RESULTS A. gap 13 0 - 16 mmol/L HISTORICAL RESULTS Glucose 90 70 - 199 mg/dl HISTORICAL RESULTS BUN 16 8 - 25 mg/dl HISTORICAL RESULTS Creatinine 0.80 0.70 - 1.30 mg/dl HISTORICAL RESULTS Calcium 9.1 8.6 - 10.3 mg/dl HISTORICAL RESULTS Plasma 01/15/2014 2:46 AM CDT us Juani Braun MD LAB BLOOD ORDERABLES Myrna funes Result HISTORICAL RESULTS * (ABNORMAL) Blood cell count (CBC) (01/15/2014 2:46 AM CDT) WBC 7.4 3.8 - 9.8 K/cumm HISTORICAL RESULTS RBC 3.47(L) 4.50 - 5.70 M/cumm HISTORICAL RESULTS Hgb 11.7(L) 13.8 - 17.2 g/dl HISTORICAL RESULTS Hct 33.5(L) 40.7 - 50.3 % HISTORICAL RESULTS MCV 96.4 80.0 - 97.6 fl HISTORICAL RESULTS MCH 33.6 26.7 - 33.7 pg HISTORICAL RESULTS MCHC 34.9 32.7 - 35.5 g/dl HISTORICAL RESULTS Rdw 12.5 11.8 - 14.6 % HISTORICAL RESULTS Platelets 341 140 - 440 K/cumm HISTORICAL RESULTS MPV 8.3 6.8 - 10.4 fl HISTORICAL RESULTS Neutrophils 58.3 38.7 - 74.5 % HISTORICAL RESULTS Lymphocytes 24.6 20.0 - 54.3 % HISTORICAL RESULTS Monos 9.6 4.3 - 13.5 % HISTORICAL RESULTS Eosinophils 7.0(H) 0.0 - 6.0 % HISTORICAL RESULTS Basophils 0.5 0.0 - 3.0 % HISTORICAL RESULTS Neutrophils, abs 4.3 1.8 - 6.6 K/cumm HISTORICAL RESULTS Lymphocytes, abs 1.8 1.2 - 3.3 K/cumm HISTORICAL RESULTS Monocytes, absolute 0.7 0.2 - 1.2 K/cumm HISTORICAL RESULTS Eosinophils, abs 0.5 0.0 - 0.5 K/cumm HISTORICAL RESULTS Basophils, abs 0.0 0.0 - 0.2 K/cumm HISTORICAL RESULTS Blood specimen (specimen) 01/15/2014 2:46 AM CDT us Juani Braun MD LAB BLOOD ORDERABLES Myrna funes Result HISTORICAL RESULTS * Discharge Laboratory Cumulative Report (01/15/2014 12:00 AM CDT) 01/15/2014 Narrative HISTORICAL RESULTS - 01/19/2014 11:19 AM CDT ?[facility] ?Department of Laboratories ? [facility] ? [place] [id number] Patient Name: ??CURLY CASH Rec Number: [id number] Fin Number: ?[id number] Date: ?1955 Sex/Age: ? Male 58 years Admit Date: ?01/11/2014 Discharge Date: 01/15/2014 Doctor: ?Golden Chowdary Facility: ?[facility] Location: ?OTHER Chart Printed: 01/19/2014 11:19 ?? * Abnormal ?? C Critical ?? f Footnote ?? ^ Corrected ?? L Low ?? H High ? i Interp Data ?? @ Reference Lab ?Chart Type:Cumulative ? SELECTED ELECTROLYTES ?Test: Sodium ? Plasma Potassium ??Chloride ? Reference: [135-145] ??[3.3-4.9] ? [97-110] ? Units: mmol/L ? mmol/L ?mmol/L 01/15/2014 ?? 02:46:00 ?? 142 ?3.7 ??f ?104 01/14/2014 ?? 02:31:00 ?? 142 ?3.5 ? 104 01/13/2014 ?? 07:40:00 ?? 143 ?3.8 ? 104 01/13/2014 ?? 04:04:00 ?? 141 ?3.5 ? 104 01/12/2014 ?? 00:07:00 ?? 141 ?3.6 ? 105 01/11/2014 ?? 17:05:00 ?? 139 ?3.7 ? 101 01/10/2014 ?? 10:51:00 ?? 140 ?3.7 ? 100 01/15/2014 02:46:00 ??Plasma Potassium: Hemolyzed; (++); potassium value may be falsely elevated by as much as 0.3 - 0.5 mmol/L. Suggest redraw and reanalysis. ?Test: Total CO2 ??Anion Gap ? Reference: [22-32] ?[0-16] ? Units: mmol/L ? mmol/L 01/15/2014 ?? 02:46:00 ?? 25 ? 13 01/14/2014 ?? 02:31:00 ?? 22 ? 16 01/13/2014 ?? 07:40:00 ?? 26 ? 13 01/13/2014 ?? 04:04:00 ?? 27 ? 10 01/12/2014 ?? 00:07:00 ?? 26 ? 10 01/11/2014 ?? 17:05:00 ?? 26 ? 12 01/10/2014 ?? 10:51:00 ?? 32 ? 8 ? STANDARD BLOOD CHEMISTRY ?Test: BUN ? Creatinine ?? Total Bilirubin ??Glucose ? Reference: [8-25] ??[0.70-1.30] ??[0.3-1.1] ?[70- 199] ? Units: mg/dL ?? mg/dL ?mg/dL ?mg/dL 01/15/2014 ?? 02:46:00 ?? 16 ?0.80 ?90 ? STANDARD BLOOD CHEMISTRY ?Test: BUN ? Creatinine ?? Total Bilirubin ??Glucose ? Reference: [8-25] ??[0.70-1.30] ??[0.3-1.1] ?[70- 199] ? Units: mg/dL ?? mg/dL ?mg/dL ?mg/dL 01/14/2014 ?? 02:31:00 ?? 14 ?0.73 ?88 01/13/2014 ?? 07:40:00 ?? 7 ??L ?0.67 ??L ? 116 01/13/2014 ?? 04:04:00 ?? 7 ??L ?0.74 ?111 01/12/2014 ?? 00:07:00 ?? 10 ?0.71 ?122 01/11/2014 ?? 17:05:00 ?? 13 ?0.83 ? 0.3 01/10/2014 ?? 10:51:00 ?? 15 ?0.91 ?85 ?Test: Glucose, Fasting ??Magnesium ??Total Calcium ? Reference: [70-99] ? [1.4-2.5] ??[8.6-10.3] ? Units: mg/dL ? mg/dL ?mg/dL 01/15/2014 ?? 02:46:00 ?9.1 01/14/2014 ?? 02:31:00 ?9.4 01/13/2014 ?? 07:40:00 ?9.6 01/13/2014 ?? 04:04:00 ? 1.6 ?9.2 01/12/2014 ?? 00:07:00 ?8.8 01/11/2014 ?? 17:05:00 ?? 121 ??H ?1.4 ?8.8 01/10/2014 ?? 10:51:00 ?9.6 ?Test: Plasma Phosphorus ??Plasma Total Protein ? Reference: [2.3-4.3] ?[6.5-8.5] ? Units: mg/dL ?g/dL 01/11/2014 ?? 17:05:00 ?? 3.1 ?6.9 ?Test: Albumin ? Reference: [3.6-5.0] ? Units: g/dL 01/11/2014 ?? 17:05:00 ?? 3.5 ??L ?ENZYMES ?Test: Alkaline Phosphatase ??ALT ?AST ? Reference: [38-126] ?[7-53] ?? [11-47] ? Units: Units/L ? Units/L ??Units/L 01/11/2014 ?? 17:05:00 ?? 69 ?17 ? 17 ? CARDIAC PROTEINS ?Test: Troponin I i ? Reference: [0.00-0.03] ? Units: ng/mL 01/11/2014 ?? 17:05:00 ?? <0.03 ? CARDIAC PROTEINS 01/11/2014 17:05:00 Troponin I: Interpretive Data Serial determinations are recommended for the diagnosis of myocardial infarction (Third [place] Definition of Myocardial Infarction. ??J Am Mary Cardiol 2012;60:1581-98). Current interpretive data was last revised on 13. ?URINALYSIS ?Macroscopic ?Test: Color ? Clarity ??Specific [place] ??pH ? Reference: [Yellow] ??[Clear] ??[1.003-1.030] ? [5.0-8.0] ? Units: 01/12/2014 ?? 06:04:00 ?? Straw ? Clear ?1.017 ? 5.0 01/11/2014 ?? 11:54:00 ?? Yellow ?Clear ?1.016 ? 5.0 01/10/2014 ?? 10:51:00 ?? Yellow ?Clear ?1.021 ? 5.0 ?Test: Albumin ?? Glucose ? Ketones ? Bilirubin ? Reference: [Trace] ?? [Negative] ??[Negative] ??[Negative] ? Units: 01/12/2014 ?? 06:04:00 ?? Negative ??Negative ?Negative ?Negative 01/11/2014 ?? 11:54:00 ?? Negative ??Negative ?Negative ?Negative 01/10/2014 ?? 10:51:00 ?? Negative ??Negative ?Negative ?Negative ?Test: Blood ? Urobilinogen ??Nitrite ? Reference: [Negative] ??[0.0-2.0] ? [Negative] ? Units: ? mg/dL 01/12/2014 ?? 06:04:00 ?? 1+ ??* ? <2.0 ?Negative 01/11/2014 ?? 11:54:00 ?? Negative ?<2.0 ?Negative 01/10/2014 ?? 10:51:00 ?? Negative ?<2.0 ?Negative ?Test: Leuk Esterase ? Reference: [Negative] ? Units: 01/12/2014 ?? 06:04:00 ?? 2+ ??* 01/11/2014 ?? 11:54:00 ?? Negative 01/10/2014 ?? 10:51:00 ?? 3+ ??* ?Microscopic ?Test: Epithl Squam ??Mucus Thrds ??RBC Ur ??WBC Ur ? Reference: ?[0-3] ?? [0-5] ? Units: /LPF ?/HPF ? /HPF ?/HPF 01/12/2014 ?? 06:04:00 ? Small ?1 ? 14 ??H 01/11/2014 ?? 11:54:00 ?1 ? 0 01/10/2014 ?? 10:51:00 ?? 14 ?Small ?2 ? 13 ??H ?Test: Bacteria Ur ??Epithl Renl Ur ? Reference: [Trace] ?[0-0] ? Units: ?/HPF 01/12/2014 ?? 06:04:00 ?? Trace ?0 01/11/2014 ?? 11:54:00 ?? Trace ?0 ?URINALYSIS ?Microscopic ?Test: Bacteria Ur ??Epithl Renl Ur ? Reference: [Trace] ?[0-0] ? Units: ?/HPF 01/10/2014 ?? 10:51:00 ?? Trace ?0 ? COMPLETE BLOOD COUNT ?Test: WBC ?RBC ?Hgb ? Reference: [3.8-9.8] ??[4.50-5.70] ??[13.8-17.2] ? Units: K/cumm ? M/cumm ? g/dL 01/15/2014 ?? 02:46:00 ?? 7.4 ?3.47 ??L ?11.7 ??L 01/14/2014 ?? 02:31:00 ?? 9.8 ?3.60 ??L ?12.0 ??L 01/13/2014 ?? 08:30:00 ?? 10.5 ??H ?3.65 ??L ?12.1 ??L 01/12/2014 ?? 00:07:00 ?? 10.2 ??H ?3.30 ??L ?11.0 ??L 01/11/2014 ?? 17:05:00 ?? 11.4 ??H ?3.51 ??L ?11.8 ??L 01/10/2014 ?? 10:51:00 ?? 6.7 ?3.78 ??L ?12.8 ??L ?Test: Hct ?Platelet Ct ??MCV ? Reference: [40.7-50.3] ??[140-440] ?[80.0-97.6] ? Units: % ?K/cumm ? fL 01/15/2014 ?? 02:46:00 ?? 33.5 ??L ?341 ?96.4 01/14/2014 ?? 02:31:00 ?? 35.3 ??L ?336 ?98.2 ??H 01/13/2014 ?? 08:30:00 ?? 35.8 ??L ?374 ?98.3 ??H 01/12/2014 ?? 00:07:00 ?? 32.5 ??L ?321 ?98.6 ??H 01/11/2014 ?? 17:05:00 ?? 34.8 ??L ?356 ?99.1 ??H 01/10/2014 ?? 10:51:00 ?? 37.4 ??L ?376 ?98.9 ??H ?Test: MCH ?MCHC ? RDW ? Reference: [26.7-33.7] ??[32.7-35.5] ??[11.8-14.6] ? Units: pg ? g/dL ? % 01/15/2014 ?? 02:46:00 ?? 33.6 ? 34.9 ? 12.5 01/14/2014 ?? 02:31:00 ?? 33.3 ? 34.0 ? 12.9 01/13/2014 ?? 08:30:00 ?? 33.3 ? 33.9 ? 12.6 01/12/2014 ?? 00:07:00 ?? 33.4 ? 33.9 ? 12.8 01/11/2014 ?? 17:05:00 ?? 33.6 ? 33.9 ? 12.9 01/10/2014 ?? 10:51:00 ?? 33.8 ??H ?34.2 ? 12.9 ?Test: MPV ? Reference: [6.8-10.4] ? Units: fL 01/15/2014 ?? 02:46:00 ?? 8.3 01/14/2014 ?? 02:31:00 ?? 7.6 01/13/2014 ?? 08:30:00 ?? 8.4 01/12/2014 ?? 00:07:00 ?? 8.2 01/11/2014 ?? 17:05:00 ?? 8.2 01/10/2014 ?? 10:51:00 ?? 8.0 ? AUTOMATED WHITE CELL DIFFERENTIAL ?Test: Neut Pct Auto ??Lymph Pct Auto ??Dupage Pct Auto ? Reference: [38.7-74.5] ?[20.0-54.3] ? [4.3-13.5] ? Units: % ?% ? % 01/15/2014 ?? 02:46:00 ?? 58.3 ? 24.6 ?9.6 01/14/2014 ?? 02:31:00 ?? 71.1 ? 12.6 ??L ? 9.0 01/12/2014 ?? 00:07:00 ?? 83.1 ??H ?9.9 ??L ?5.1 01/11/2014 ?? 17:05:00 ?? 83.8 ??H ?7.4 ??L ?5.8 01/10/2014 ?? 10:51:00 ?? 58.7 ? 23.4 ?7.4 ?Test: Eos Pct Auto ??Baso Pct Auto ??Neut Abs Auto ? Reference: [0.0-6.0] ? [0.0-3.0] ?[1.8-6.6] ? Units: % ? % ?K/cumm 01/15/2014 ?? 02:46:00 ?? 7.0 ??H ?0.5 ?4.3 01/14/2014 ?? 02:31:00 ?? 6.8 ??H ?0.5 ?6.8 ??H 01/12/2014 ?? 00:07:00 ?? 1.6 ? 0.3 ?8.5 ??H 01/11/2014 ?? 17:05:00 ?? 2.8 ? 0.2 ?9.6 ??H 01/10/2014 ?? 10:51:00 ?? 9.8 ??H ?0.7 ?3.9 ?Test: Lymph Abs Auto ??Dupage Abs Auto ??Eos Abs Auto ? Reference: [1.2-3.3] ? [0.2-1.2] ?[0.0-0.5] ? Units: K/cumm ?K/cumm ? K/cumm 01/15/2014 ?? 02:46:00 ?? 1.8 ? 0.7 ?0.5 01/14/2014 ?? 02:31:00 ?? 1.2 ? 0.9 ?0.7 ??H 01/12/2014 ?? 00:07:00 ?? 1.0 ??L ?0.5 ?0.2 01/11/2014 ?? 17:05:00 ?? 0.8 ??L ?0.7 ?0.3 01/10/2014 ?? 10:51:00 ?? 1.6 ? 0.5 ?0.7 ??H ?Test: Baso Abs Auto ? Reference: [0.0-0.2] ? Units: K/cumm 01/15/2014 ?? 02:46:00 ?? 0.0 01/14/2014 ?? 02:31:00 ?? 0.0 01/12/2014 ?? 00:07:00 ?? 0.0 01/11/2014 ?? 17:05:00 ?? 0.0 01/10/2014 ?? 10:51:00 ?? 0.0 ? MISCELLANEOUS HEMATOLOGY ?Test: ESR ? Reference: [0-15] ? Units: mm/H 01/10/2014 ?? 10:51:00 ?? 29 ??H ? HEMOSTASIS AND THROMBOSIS ?Routine Coagulation Studies ?Test: PT ?INR ?aPTT ? Reference: [9.0-12.0] ??[0.90-1.20] ??[25.0-37.0] ? Units: sec ?sec 01/11/2014 ?? 17:05:00 ?? 13.5 ??H ? 1.27 ??H ?35.9 01/10/2014 ?? 10:51:00 ?? 12.5 ??H ? 1.18 ? 34.3 01/10/2014 10:51:00 INR: Interpretive Data Inpatient therapeutic ranges* Atrial fibrillation ?2.0-3.0 INR Venous thrombo-embolism ?2.0-3.0 INR Bioprosthetic heart valve ?* Mechanical heart valve, bileaflet or tilting disk,aortic position ? 2.0-3.0 INR All other,or bileaflet or tilting disk, in mitral position ? 2.5-3.5 INR *See the pharmacy resource directory (PHRED) for an updated copy of the Tool Book at [email or web address] Current Interpretive Data was last revised 2011. 01/10/2014 10:51:00 aPTT: Interpretive Data Therapeutic heparin range:60.0 - 94.0 sec based on correlation with therapeutic heparin activity range of 0.3 -0.7 Units/mL. Current interpretive data was last revised on 2011. ? SEROLOGY-BACTERIAL TESTS ?Test: C-Reactive Protein ? Reference: [0.0-9.9] ? Units: mg/L 01/10/2014 ?? 10:51:00 ?? 9.0 ? TRANSFUSION MEDICINE ?Test: Indirect Madhavi. ??ABO/Rh Pat Interp ? Reference: ? Units: 01/10/2014 ?? 10:51:00 ?? Negative ?O Positive ?POINT OF CARE TESTS ? Chemistry ?Test: Glucose POC ? Reference: [70-199] ? Units: mg/dL 01/11/2014 ?? 17:55:00 ?? 144 01/11/2014 ?? 17:07:00 ?? 133 ? MICROBIOLOGY - ALL TESTS ? PROCEDURE: Clostridium difficile Toxin ?SOURCE: Stool COLLECTED: 01/14/14 ??0953 ? BODY SITE: STARTED: 01/14/14 ??1028 FREE TEXT SOURCE: FINAL REPORT REPORTED: 01/15/14 0158 Positive for: Clostridium difficile toxin. ? PROCEDURE: Urine Culture ?SOURCE: Urine COLLECTED: 01/12/14 ??0604 ? BODY SITE: STARTED: 01/12/14 ??0930 FREE TEXT SOURCE: FINAL REPORT REPORTED: 01/13/14 1015 No growth ? PROCEDURE: Urine Culture ?SOURCE: Urine, clean voided COLLECTED: 01/10/14 ??1051 ? BODY SITE: STARTED: 01/10/14 ??1135 FREE TEXT SOURCE: FINAL REPORT REPORTED: 01/11/14 1325 Insignificant growth based on current clinical standards. ? MICROBIOLOGY - ALL TESTS ? PROCEDURE: VRE Surveillance Culture ?SOURCE: Stool COLLECTED: 01/14/14 ??0953 ? BODY SITE: STARTED: 01/15/14 ??0108 FREE TEXT SOURCE: FINAL REPORT REPORTED: 01/19/14 0833 Enterococcus species, vancomycin resistant * * * ??Interpretive Results ??* * * (1)This test is for Infection prevention surveillance; no charge to patient.Current interpretive data was last revised on 2011. ? MICROBIOLOGY - GASTROINTESTINAL ? PROCEDURE: Clostridium difficile Toxin ?SOURCE: Stool COLLECTED: 01/14/14 ??0953 ? BODY SITE: STARTED: 01/14/14 ??1028 FREE TEXT SOURCE: FINAL REPORT REPORTED: 01/15/14 0158 Positive for: Clostridium difficile toxin. ? PROCEDURE: VRE Surveillance Culture ?SOURCE: Stool COLLECTED: 01/14/14 ??0953 ? BODY SITE: STARTED: 01/15/14 ??0108 FREE TEXT SOURCE: FINAL REPORT REPORTED: 01/19/14 0833 Enterococcus species, vancomycin resistant * * * ??Interpretive Results ??* * * (1)This test is for Infection prevention surveillance; no charge to patient.Current interpretive data was last revised on 2011. ? MICROBIOLOGY - URINE ? PROCEDURE: Urine Culture ?SOURCE: Urine COLLECTED: 01/12/14 ??0604 ? BODY SITE: STARTED: 01/12/14 ??0930 FREE TEXT SOURCE: FINAL REPORT REPORTED: 01/13/14 1015 No growth ? PROCEDURE: Urine Culture ?SOURCE: Urine, clean voided COLLECTED: 01/10/14 ??1051 ? BODY SITE: STARTED: 01/10/14 ??1135 FREE TEXT SOURCE: FINAL REPORT REPORTED: 01/11/14 1325 Insignificant growth based on current clinical standards. ? CANCELLED TESTS Date ?Time ?Test ?Cancel Reason 01/11/2014 ??16:13:00 ??Troponin I 01/11/2014 ??16:14:00 ??Basic Met Plas ??NCHG Duplicate 01/11/2014 ??16:14:00 ??CBC ? Dup Cancel 01/11/2014 ??16:14:00 ??CBC 01/11/2014 ??16:14:00 ??Comp Met Plas 01/11/2014 ??16:14:00 ??Magnesium 01/11/2014 ??16:14:00 ??aPTT 01/11/2014 ??16:14:00 ??Phos Plas 01/11/2014 ??16:14:00 ??PT 01/12/2014 ??00:13:00 ??Troponin I ?Lab Operations Cancel 01/12/2014 ??02:30:00 ??Basic Met Plas ??Lab Operations Cancel 01/12/2014 ??02:30:00 ??CBC ? Lab Operations Cancel 01/13/2014 ??02:30:00 ??Basic Met Plas ??Lab Operations Cancel 01/13/2014 ??02:30:00 ??CBC ? Lab Operations Cancel 01/13/2014 ??07:40:00 ??Basic Met Plas ??Lab Operations Cancel 01/13/2014 ??07:40:00 ??CBC ? Lab Operations Cancel 01/13/2014 ??08:30:00 ??CBC ? Lab Operations Cancel Historical Provider LAB BLOOD ORDERABLES Myrna l Result Performing Organization Address City/[facility]/ZIP Co de Phone Number HISTORICAL RESULTS * Vancomycin-resistant enterococcus (VRE) surveillance screen (01/14/2014 9:53 AM CDT) Stool (Unknown) 01/14/2014 9 :53 AM CDT 01/15/2014 1:08 AM CDT Impressions HISTORICAL RESULTS - 01/19/2014 8:34 AM CDT This test is for Infection prevention surveillance; no charge to patient. Current interpretive data was last revised on 2011. Narrative HISTORICAL RESULTS - 01/19/2014 8:34 AM CDT Enterococcus species, vancomycin resistant Historical Provider LAB MICROBIOLOGY - GENERA L ORDERABLES Final Result Performing Organization Address [facility] Co de Phone Number HISTORICAL RESULTS * Clostridium difficile toxin (01/14/2014 9:53 AM CDT) Stool (Unknown) 01/14/2014 9 :53 AM CDT 01/14/2014 10:28 AM CDT Narrative HISTORICAL RESULTS - 01/15/2014 1:58 AM CDT Positive for: Clostridium difficile toxin. Historical Provider LAB MICROBIOLOGY - GENERA L ORDERABLES Final Result Performing Organization Address [facility] Co de Phone Number HISTORICAL RESULTS * Plasma basic metabolic panel (01/14/2014 2:31 AM CDT) Sodium 142 135 - 145 mmol/L HISTORICAL RESULTS K, pl 3.5 3.3 - 4.9 mmol/L HISTORICAL RESULTS Chloride 104 97 - 110 mmol/L HISTORICAL RESULTS CO2 22 22 - 32 mmol/L HISTORICAL RESULTS A. gap 16 0 - 16 mmol/L HISTORICAL RESULTS Glucose 88 70 - 199 mg/dl HISTORICAL RESULTS BUN 14 8 - 25 mg/dl HISTORICAL RESULTS Creatinine 0.73 0.70 - 1.30 mg/dl HISTORICAL RESULTS Calcium 9.4 8.6 - 10.3 mg/dl HISTORICAL RESULTS Plasma 01/14/2014 2:31 AM CDT Juani Braun MD LAB BLOOD ORDERABLES Myrna l Result HISTORICAL RESULTS * (ABNORMAL) Blood cell count (CBC) (01/14/2014 2:31 AM CDT) WBC 9.8 3.8 - 9.8 K/cumm HISTORICAL RESULTS RBC 3.60(L) 4.50 - 5.70 M/cumm HISTORICAL RESULTS Hgb 12.0(L) 13.8 - 17.2 g/dl HISTORICAL RESULTS Hct 35.3(L) 40.7 - 50.3 % HISTORICAL RESULTS MCV 98.2(H) 80.0 - 97.6 fl HISTORICAL RESULTS MCH 33.3 26.7 - 33.7 pg HISTORICAL RESULTS MCHC 34.0 32.7 - 35.5 g/dl HISTORICAL RESULTS Rdw 12.9 11.8 - 14.6 % HISTORICAL RESULTS Platelets 336 140 - 440 K/cumm HISTORICAL RESULTS MPV 7.6 6.8 - 10.4 fl HISTORICAL RESULTS Neutrophils 71.1 38.7 - 74.5 % HISTORICAL RESULTS Lymphocytes 12.6(L) 20.0 - 54.3 % HISTORICAL RESULTS Monos 9.0 4.3 - 13.5 % HISTORICAL RESULTS Eosinophils 6.8(H) 0.0 - 6.0 % HISTORICAL RESULTS Basophils 0.5 0.0 - 3.0 % HISTORICAL RESULTS Neutrophils, abs 6.8(H) 1.8 - 6.6 K/cumm HISTORICAL RESULTS Lymphocytes, abs 1.2 1.2 - 3.3 K/cumm HISTORICAL RESULTS Monocytes, absolute 0.9 0.2 - 1.2 K/cumm HISTORICAL RESULTS Eosinophils, abs 0.7(H) 0.0 - 0.5 K/cumm HISTORICAL RESULTS Basophils, abs 0.0 0.0 - 0.2 K/cumm HISTORICAL RESULTS Blood specimen (specimen) 01/14/2014 2:31 AM CDT Juani Braun MD LAB BLOOD ORDERABLES Myrna l Result HISTORICAL RESULTS * All Microbiology Report Section (01/14/2014 12:00 AM CDT) 01/14/2014 Narrative HISTORICAL RESULTS - 01/19/2014 10:32 AM CDT ? [facility] ?[address] [facility] ?[place], [place] [address] ? Patient Name: ??GI, CURLY ? Med Rec Number: [id number] ? Fin Number: ?[id number] ? Date: ?1955 ? Sex/Age: ? Male 58 years ? Admit Date: ?01/11/2014 ? Discharge Date: 01/15/2014 ? Doctor: ?Ricarda , Golden G ? Facility: ?[facility] ? Location: ?OTHER ?* Abnormal ??A Alert ??f Footnote ??^ Corrected ??L Low ??H High ?i Interp Data ??@ Ref Lab ? Chart Type:Cumulative ?* * * * MICROBIOLOGY - GASTROINTESTINAL * * * * ?PROCEDURE: Clostridium difficile Toxin ? SOURCE: Stool ? COLLECTED: 01/14/14 ??0953 ?BODY SITE: ? STARTED: 01/14/14 ??1028 ? FREE TEXT SOURCE: ? FINAL REPORT ? REPORTED: 01/15/14 0158 ? Positive for: Clostridium difficile toxin. us Historical Provider MD LAB MICROBIOLOGY - GENERA L ORDERABLES Final Result HISTORICAL RESULTS * All Microbiology Report Section (01/14/2014 12:00 AM CDT) 01/14/2014 Narrative HISTORICAL RESULTS - 01/19/2014 10:32 AM CDT ? [facility] ?[address] [facility] ?[place] [address] ? Patient Name: ??CURLY CASH ? Med Rec Number: [id number] ? Fin Number: ?[id number] ? Date: ?1955 ? Sex/Age: ? Male 58 years ? Admit Date: ?01/11/2014 ? Discharge Date: 01/15/2014 ? Doctor: ?Golden Chowdary G ? Facility: ?[facility] ? Location: ?OTHER ?* Abnormal ??A Alert ??f Footnote ??^ Corrected ??L Low ??H High ?i Interp Data ??@ Ref Lab ? Chart Type:Cumulative ?* * * * MICROBIOLOGY - GASTROINTESTINAL * * * * ?PROCEDURE: VRE Surveillance Culture ? SOURCE: Stool ? COLLECTED: 01/14/ ??0953 ?BODY SITE: ? STARTED: 01/15/14 ??0108 ? FREE TEXT SOURCE: ? FINAL REPORT ? REPORTED: 01/19/14 0833 ? Enterococcus species, vancomycin resistant ?* * * ??Interpretive Results ??* * * ? (1)This test is for Infection prevention surveillance; no charge to ? patient.Current interpretive data was last revised on 2011. ? us Historical Provider LAB MICROBIOLOGY - GENERA L ORDERABLES Final Result HISTORICAL RESULTS * (ABNORMAL) Blood cell count [CBC] express (01/13/2014 8:30 AM CDT) WBC 10.5(H) 3.8 - 9.8 K/cumm HISTORICAL RESULTS RBC 3.65(L) 4.50 - 5.70 M/cumm HISTORICAL RESULTS Hgb 12.1(L) 13.8 - 17.2 g/dl HISTORICAL RESULTS Hct 35.8(L) 40.7 - 50.3 % HISTORICAL RESULTS MCV 98.3(H) 80.0 - 97.6 fl HISTORICAL RESULTS MCH 33.3 26.7 - 33.7 pg HISTORICAL RESULTS MCHC 33.9 32.7 - 35.5 g/dl HISTORICAL RESULTS Rdw 12.6 11.8 - 14.6 % HISTORICAL RESULTS Platelets 374 140 - 440 K/cumm HISTORICAL RESULTS MPV 8.4 6.8 - 10.4 fl HISTORICAL RESULTS Blood specimen (specimen) 01/13/2014 8:30 AM CDT us Golden Chowdary MD LAB BLOOD ORDERABLES Final Result Performing Organization Address City/[facility] Co de Phone Number HISTORICAL RESULTS * (ABNORMAL) Plasma basic metabolic panel (01/13/2014 7:40 AM CDT) Sodium 143 135 - 145 mmol/L HISTORICAL RESULTS K, pl 3.8 3.3 - 4.9 mmol/L HISTORICAL RESULTS Chloride 104 97 - 110 mmol/L HISTORICAL RESULTS CO2 26 22 - 32 mmol/L HISTORICAL RESULTS A. gap 13 0 - 16 mmol/L HISTORICAL RESULTS Glucose 116 70 - 199 mg/dl HISTORICAL RESULTS BUN 7(L) 8 - 25 mg/dl HISTORICAL RESULTS Creatinine 0.67(L) 0.70 - 1.30 mg/dl HISTORICAL RESULTS Calcium 9.6 8.6 - 10.3 mg/dl HISTORICAL RESULTS Plasma 01/13/2014 7:40 AM CDT us Kylie Ann MIL[employer]ATER LAB BLOOD ORDERABLES Final Res ult Performing Organization Address [facility] de Phone Number HISTORICAL RESULTS * (ABNORMAL) Plasma basic metabolic panel (01/13/2014 4:04 AM CDT) Sodium 141 135 - 145 mmol/L HISTORICAL RESULTS K, pl 3.5 3.3 - 4.9 mmol/L HISTORICAL RESULTS Chloride 104 97 - 110 mmol/L HISTORICAL RESULTS CO2 27 22 - 32 mmol/L HISTORICAL RESULTS A. gap 10 0 - 16 mmol/L HISTORICAL RESULTS Glucose 111 70 - 199 mg/dl HISTORICAL RESULTS BUN 7(L) 8 - 25 mg/dl HISTORICAL RESULTS Creatinine 0.74 0.70 - 1.30 mg/dl HISTORICAL RESULTS Calcium 9.2 8.6 - 10.3 mg/dl HISTORICAL RESULTS Plasma 01/13/2014 4:04 AM CDT us Taj Dyson MD PhD LAB BLOOD ORDERABLES Final Result Performing Organization Address City/State/[facility] Co de Phone Number HISTORICAL RESULTS * Serum magnesium (01/13/2014 4:04 AM CDT) Magnesium 1.6 1.4 - 2.5 mg/dl HISTORICAL RESULTS Serum 01/13/2014 4:04 AM CDT Taj Dyson MD PhD LAB BLOOD ORDERABLES Final Result Performing Organization Address [facility] de Phone Number HISTORICAL RESULTS * (ABNORMAL) Urinalysis (01/12/2014 6:04 AM CDT) Color, ur Straw Yellow HISTORICAL RESULTS Clarity, ur Clear Clear HISTORIC AL RESULTS Specific gravity, ur 1.017 1.003 - 1.030 HISTORICAL RESULTS pH, ur 5.0 5.0 - 8.0 HISTORICAL RESULTS Protein, ur Negative Trace HISTORIC AL RESULTS Glucose, ur Negative Negative HISTORIC AL RESULTS Ketones, ur Negative Negative HISTORIC AL RESULTS Bilirubin, ur Negative Negative HISTOR ICAL RESULTS U Blood 1+(A) Negative HISTORICAL RESULTS Urobilinogen, quant, ur <2.0 0.0 - 2.0 mg/dl HISTORICAL RESULTS Nitrites, ur Negative Negative HISTORI SHALA RESULTS Leukocyte esterase, ur 2+(A) Negative HISTORICAL RESULTS Urine 01/12/2014 6:04 AM CDT Result [facility] Jelly Constantino LAB BLOOD ORDERABLES Final Resu lt Performing Organization Address [facility] de Phone Number HISTORICAL RESULTS * (ABNORMAL) Urine microscopy (01/12/2014 6:04 AM CDT) RBC, ur 1 0 - 3 /hpf HISTORICA L RESULTS WBC, ur 14(H) 0 - 5 /hpf HISTORICA L RESULTS Bacteria, ur Trace Trace HISTORI SHALA RESULTS Epithelial cells, renal, ur 0 0 - 0 /hpf HISTORICAL RESULTS Mucus, ur Small /hpf HISTORICAL RESULTS Urine 01/12/2014 6:04 AM CDT Jelly Constantino LAB BLOOD ORDERABLES Final Resu lt Performing Organization Address [facility] de Phone Number HISTORICAL RESULTS * Urine (aerobic) culture (01/12/2014 6:04 AM CDT) Urine (Unknown) 01/12/2014 6 :04 AM CDT 01/12/2014 9:30 AM CDT Narrative HISTORICAL RESULTS - 01/13/2014 10:15 AM CDT No growth us Historical Provider LAB MICROBIOLOGY - GENERA L ORDERABLES Final Result Performing Organization Address City/[facility]/ZIP Co de Phone Number HISTORICAL RESULTS * Plasma basic metabolic panel (01/12/2014 12:07 AM CDT) Sodium 141 135 - 145 mmol/L HISTORICAL RESULTS K, pl 3.6 3.3 - 4.9 mmol/L HISTORICAL RESULTS Chloride 105 97 - 110 mmol/L HISTORICAL RESULTS CO2 26 22 - 32 mmol/L HISTORICAL RESULTS A. gap 10 0 - 16 mmol/L HISTORICAL RESULTS Glucose 122 70 - 199 mg/dl HISTORICAL RESULTS BUN 10 8 - 25 mg/dl HISTORICAL RESULTS Creatinine 0.71 0.70 - 1.30 mg/dl HISTORICAL RESULTS Calcium 8.8 8.6 - 10.3 mg/dl HISTORICAL RESULTS Plasma 01/12/2014 12:0 7 AM CDT Juani Braun MD LAB BLOOD ORDERABLES Myrna l Result Performing Organization Address [facility] de Phone Number HISTORICAL RESULTS * (ABNORMAL) Blood cell count (CBC) (01/12/2014 12:07 AM CDT) WBC 10.2(H) 3.8 - 9.8 K/cumm HISTORICAL RESULTS RBC 3.30(L) 4.50 - 5.70 M/cumm HISTORICAL RESULTS Hgb 11.0(L) 13.8 - 17.2 g/dl HISTORICAL RESULTS Hct 32.5(L) 40.7 - 50.3 % HISTORICAL RESULTS MCV 98.6(H) 80.0 - 97.6 fl HISTORICAL RESULTS MCH 33.4 26.7 - 33.7 pg HISTORICAL RESULTS MCHC 33.9 32.7 - 35.5 g/dl HISTORICAL RESULTS Rdw 12.8 11.8 - 14.6 % HISTORICAL RESULTS Platelets 321 140 - 440 K/cumm HISTORICAL RESULTS MPV 8.2 6.8 - 10.4 fl HISTORICAL RESULTS Neutrophils 83.1(H) 38.7 - 74.5 % HISTORICAL RESULTS Lymphocytes 9.9(L) 20.0 - 54.3 % HISTORICAL RESULTS Monos 5.1 4.3 - 13.5 % HISTORICAL RESULTS Eosinophils 1.6 0.0 - 6.0 % HISTORICAL RESULTS Basophils 0.3 0.0 - 3.0 % HISTORICAL RESULTS Neutrophils, abs 8.5(H) 1.8 - 6.6 K/cumm HISTORICAL RESULTS Lymphocytes, abs 1.0(L) 1.2 - 3.3 K/cumm HISTORICAL RESULTS Monocytes, absolute 0.5 0.2 - 1.2 K/cumm HISTORICAL RESULTS Eosinophils, abs 0.2 0.0 - 0.5 K/cumm HISTORICAL RESULTS Basophils, abs 0.0 0.0 - 0.2 K/cumm HISTORICAL RESULTS Blood specimen (specimen) 01/12/2014 12:07 AM CDT Juani Braun MD LAB BLOOD ORDERABLES Myrna shantel Result HISTORICAL RESULTS * All Microbiology Report Section (01/12/2014 12:00 AM CDT) 01/12/2014 Narrative HISTORICAL RESULTS - 01/19/2014 10:32 AM CDT ? [facility] ?[address] [facility] ?[place], [place] [address] ? Patient Name: ??CURLY CASH ? Med Rec Number: [id number] ? Fin Number: ?[id number] ? Date: ?1955 ? Sex/Age: ? Male 58 years ? Admit Date: ?01/11/2014 ? Discharge Date: 01/15/2014 ? Doctor: ?Ricarda Golden G ? Facility: ?[facility] ? Location: ?OTHER ?* Abnormal ??A Alert ??f Footnote ??^ Corrected ??L Low ??H High ?i Interp Data ??@ Ref Lab ? Chart Type:Cumulative ?* * * * MICROBIOLOGY - URINE * * * * ?PROCEDURE: Urine Culture ? SOURCE: Urine ? COLLECTED: 10/15/14 ??0604 ?BODY SITE: ? STARTED: 10/15/14 ??0930 ? FREE TEXT SOURCE: ? FINAL REPORT ? REPORTED: 01/13/14 1015 ? No growth us Historical Provider LAB MICROBIOLOGY - GENERA L ORDERABLES Final Result HISTORICAL RESULTS * XR Chest 1 View (01/11/2014 6:21 PM CDT) Anatomical Region Laterality Modality Body, Chest N/A Radiographic Tawanna ging 01/11/2014 6:21 PM CDT Narrative 01/12/2014 12:02 PM CDT SANTI ASHER M.D. SAEID BOBBY M.D. FINAL REPORT The radiology attending physician has personally reviewed this study, and has reviewed and/or edited this written report and agrees with it. ACC# ??Date Time ??Exam [id number] Jan 11, 2014 18:21:00 [id number] Chest 1 view Frontal EXAMINATION: ?? Chest one view IMPRESSION: ? Comparison is made to previous examination from 01/03/2014. An endotracheal tube has been placed with its tip 6 cm above the ti. Nasogastric tube tip overlies the stomach, with its side port above the gastroesophageal junction. There is mild right basilar atelectasis. Lungs otherwise clear. No pneumothorax, pleural effusion, or pulmonary edema. The mediastinal silhouette is unchanged Requested By: ZOILA LUX ACNP Dictated By: ?? SAEID BOBBY M.D. ??on Jan 12 2014 10:11A This document has been electronically signed by: SANTI ASHER M.D. on Jan 12 2014 12:01P [id number] Procedure Note Provider, Mirna, - 07/28/2016 SANTI ASHER M.D. SAEID BOBBY M.D. FINAL REPORT The radiology attending physician has personally reviewed this study, and has reviewed and/or edited this written report and agrees with it. ACC# Date Time Exam [id number] Jan 11, 2014 18:21:00 00415 Chest 1 view Frontal EXAMINATION: Chest one view IMPRESSION: Comparison is made to previous examination from 01/03/2014. An endotracheal tube has been placed with its tip 6 cm above the ti. Nasogastric tube tip overlies the stomach, with its side port above the gastroesophageal junction. There is mild right basilar atelectasis. Lungs otherwise clear. No pneumothorax, pleural effusion, or pulmonary edema. The mediastinal silhouette is unchanged Requested By: ZOILA LUX ACNP Dictated By: SAEID BOBBY M.D. on Jan 12 2014 10:11A This document has been electronically signed by: SANTI ASHER M.D. on Jan 12 2014 12:01P [id number] Historical Provider IMG XR PROCEDURES Final R esult * Blood glucose, POC (01/11/2014 5:55 PM CDT) Glucose, POC, bld 144 70 - 199 mg/dl HISTORICAL RESULTS Blood specimen (specimen) 01/11/2014 5:55 PM CDT Golden Chowdary MD LAB BLOOD ORDERABLES Final Result Performing Organization Address [facility] de Phone Number HISTORICAL RESULTS * Blood glucose, POC (01/11/2014 5:07 PM CDT) Glucose, POC, bld 133 70 - 199 mg/dl HISTORICAL RESULTS Blood specimen (specimen) 01/11/2014 5:07 PM CDT Golden Chowdary MD LAB BLOOD ORDERABLES Final Result Performing Organization Address City/State/[facility] Co de Phone Number HISTORICAL RESULTS * (ABNORMAL) Plasma comprehensive metabolic panel (01/11/2014 5:05 PM CDT) Sodium 139 135 - 145 mmol/L HISTORICAL RESULTS K, pl 3.7 3.3 - 4.9 mmol/L HISTORICAL RESULTS Chloride 101 97 - 110 mmol/L HISTORICAL RESULTS CO2 26 22 - 32 mmol/L HISTORICAL RESULTS A. gap 12 0 - 16 mmol/L HISTORICAL RESULTS Glucose, fasting 121(H) 70 - 99 mg/dl HISTORICAL RESULTS BUN 13 8 - 25 mg/dl HISTORICAL RESULTS Creatinine 0.83 0.70 - 1.30 mg/dl HISTORICAL RESULTS Calcium 8.8 8.6 - 10.3 mg/dl HISTORICAL RESULTS Protein, pl 6.9 6.5 - 8.5 g/dl HISTORICAL RESULTS Alb 3.5(L) 3.6 - 5.0 g/dl HISTORICAL RESULTS Bilirubin 0.3 0.3 - 1.1 mg/dl HISTORICAL RESULTS Alk phos 69 38 - 126 Units/L HISTORICAL RESULTS AST 17 11 - 47 Units/L HISTORICAL RESULTS ALT 17 7 - 53 Units/L HISTORICAL RESULTS Plasma 01/11/2014 5:05 PM CDT Golden Chowdary MD LAB BLOOD ORDERABLES Final Result Performing Organization Address [facility] de Phone Number HISTORICAL RESULTS * Serum troponin I (01/11/2014 5:05 PM CDT) Troponin I <0.03 0.00 - 0.03 ng/ml HISTORICAL RESULTS Comment: Interpretive Data Serial determinations are recommended for the diagnosis of myocardial infarction (Third [place] Definition of Myocardial Infarction. ??J Am Mary Cardiol 2012;60:1581-98). Current interpretive data was last revised on 13. Serum 01/11/2014 5:05 PM CDT Golden Chowdary MD LAB BLOOD ORDERABLES Final Result Performing Organization Address [facility] de Phone Number HISTORICAL RESULTS * Plasma phosphorus (01/11/2014 5:05 PM CDT) Phosphorus, pl 3.1 2.3 - 4.3 mg/dl HISTORICAL RESULTS Plasma 01/11/2014 5:05 PM CDT Golden Chowdary MD LAB BLOOD ORDERABLES Final Result Performing Organization Address [facility] de Phone Number HISTORICAL RESULTS * Serum magnesium (01/11/2014 5:05 PM CDT) Magnesium 1.4 1.4 - 2.5 mg/dl HISTORICAL RESULTS Serum 01/11/2014 5:05 PM CDT Golden Chowdary MD LAB BLOOD ORDERABLES Final Result Performing Organization Address [facility] de Phone Number HISTORICAL RESULTS * Plasma partial thromboplastin time (PTT) (01/11/2014 5:05 PM CDT) APTT 35.9 25.0 - 37.0 seconds HISTORICAL RESULTS Comment: Interpretive Data Therapeutic heparin range:60.0 - 94.0 sec based on correlation with therapeutic heparin activity range of 0.3 -0.7 Units/mL. Current interpretive data was last revised on 2011. Plasma 01/11/2014 5:05 PM CDT Golden Chowdary MD LAB BLOOD ORDERABLES Final Result Performing Organization Address [facility] de Phone Number HISTORICAL RESULTS * (ABNORMAL) Plasma prothrombin time (PT) (01/11/2014 5:05 PM CDT) Prothrombin time (PT) 13.5(H) 9.0 - 12.0 seconds HISTORICAL RESULTS INR 1.27(H) 0.90 - 1.20 HISTORIC AL RESULTS Comment: Interpretive Data Inpatient therapeutic ranges* Atrial fibrillation ?2.0-3.0 INR Venous thrombo-embolism ?2.0-3.0 INR Bioprosthetic heart valve ?* Mechanical heart valve, bileaflet or tilting disk,aortic position ? 2.0-3.0 INR All other,or bileaflet or tilting disk, in mitral position ? 2.5-3.5 INR *See the pharmacy resource directory (PHRED) for an updated copy of the Tool Book at [email or web address].nsf Current Interpretive Data was last revised 2011. Plasma 01/11/2014 5:05 PM CDT Golden Chowdary MD LAB BLOOD ORDERABLES Final Result HISTORICAL RESULTS * (ABNORMAL) Blood cell count (CBC) (01/11/2014 5:05 PM CDT) WBC 11.4(H) 3.8 - 9.8 K/cumm HISTORICAL RESULTS RBC 3.51(L) 4.50 - 5.70 M/cumm HISTORICAL RESULTS Hgb 11.8(L) 13.8 - 17.2 g/dl HISTORICAL RESULTS Hct 34.8(L) 40.7 - 50.3 % HISTORICAL RESULTS MCV 99.1(H) 80.0 - 97.6 fl HISTORICAL RESULTS MCH 33.6 26.7 - 33.7 pg HISTORICAL RESULTS MCHC 33.9 32.7 - 35.5 g/dl HISTORICAL RESULTS Rdw 12.9 11.8 - 14.6 % HISTORICAL RESULTS Platelets 356 140 - 440 K/cumm HISTORICAL RESULTS MPV 8.2 6.8 - 10.4 fl HISTORICAL RESULTS Neutrophils 83.8(H) 38.7 - 74.5 % HISTORICAL RESULTS Lymphocytes 7.4(L) 20.0 - 54.3 % HISTORICAL RESULTS Monos 5.8 4.3 - 13.5 % HISTORICAL RESULTS Eosinophils 2.8 0.0 - 6.0 % HISTORICAL RESULTS Basophils 0.2 0.0 - 3.0 % HISTORICAL RESULTS Neutrophils, abs 9.6(H) 1.8 - 6.6 K/cumm HISTORICAL RESULTS Lymphocytes, abs 0.8(L) 1.2 - 3.3 K/cumm HISTORICAL RESULTS Monocytes, absolute 0.7 0.2 - 1.2 K/cumm HISTORICAL RESULTS Eosinophils, abs 0.3 0.0 - 0.5 K/cumm HISTORICAL RESULTS Basophils, abs 0.0 0.0 - 0.2 K/cumm HISTORICAL RESULTS Blood specimen (specimen) 01/11/2014 5:05 PM CDT Golden Chowdary MD LAB BLOOD ORDERABLES Final Result HISTORICAL RESULTS * CT Head WO Contrast (01/11/2014 4:03 PM CDT) Anatomical Region Laterality Modality Head and Neck N/A Computed Tomogra phy 01/11/2014 4:03 PM CDT Narrative 01/11/2014 8:04 PM CDT MORGAN GANN M.D. RAFIA PATRICIO M.D. FINAL REPORT The radiology attending physician has personally reviewed this study, and has reviewed and/or edited this written report and agrees with it. ACC# ??Date Time ??Exam [id number] Jan 11, 2014 16:03:[id number] Head or Brain w/o cont EXAMINATION: ?? 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 Patient is now status post left-sided cranioplasty. TECHNIQUE: Noncontrast CT of the brain was performed with axial images acquired from skull base to vertex. COMPARISON: Noncontrast head CT 01/03/14, MRI brain 01/03/14 FINDINGS: Expected postoperative changes from a left cranioplasty with small amount of blood product along the left frontal convexity, soft tissue swelling, and pneumocephalus. A large area of encephalomalacia within the distribution of the left middle cerebral artery is again noted. Ventricles are of normal size, shape, and morphology. No mass effect or midline shift is present. The russell-white matter differentiation is normal. IMPRESSION: ?? 1. Expected postoperative changes from a left cranioplasty with no significant mass effect or midline shift noted Requested By: JUANI BRAUN M.D. Dictated By: ?? RAFIA PATRICIO M.D. ??on Jan 11 2014 ??5:54P This document has been electronically signed by: MORGAN GANN M.D. on Jan 11 2014 ??8:04P [id number] Procedure Note Provider, MD Mirna - 07/28/2016 MORGAN GANN M.D. RAFIA PATRICIO M.D. FINAL REPORT The radiology attending physician has personally reviewed this study, and has reviewed and/or edited this written report and agrees with it. 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 Patient is now status post left-sidedcranioplasty. TECHNIQUE: Noncontrast CT of the brain was performed with axial images acquired from skull base to vertex. COMPARISON: Noncontrast head CT 01/03/14, MRI brain 01/03/14 FINDINGS: Expected postoperative changes from a left cranioplasty with small amount of blood product along the left frontal convexity, soft tissue swelling, and pneumocephalus. A large area of encephalomalacia within the distribution of the left middle cerebral artery is again noted. Ventricles are of normal size, shape, and morphology. No mass effect or midline shift is present. The russell-white matter differentiation is normal. IMPRESSION: 1. Expected postoperative changes from a left cranioplasty with no significant mass effect or midline shift noted Requested By: JUANI BRAUN M.D. Dictated By: RAFIA PATRICIO M.D. on Jan 11 2014 5:54P This document has been electronically signed by: MORGAN GANN M.D. on Jan 11 2014 8:04P [id number] us Historical Provider MD ESTR[facility] CT PROCEDURES Final R esult * Urinalysis (01/11/2014 11:54 AM CDT) Color, ur Yellow Yellow HISTORICAL RESULTS Clarity, ur Clear Clear HISTORIC AL RESULTS Specific gravity, ur 1.016 1.003 - 1.030 HISTORICAL RESULTS pH, ur 5.0 5.0 - 8.0 HISTORICAL RESULTS Protein, ur Negative Trace HISTORIC AL RESULTS Glucose, ur Negative Negative HISTORIC AL RESULTS Ketones, ur Negative Negative HISTORIC AL RESULTS Bilirubin, ur Negative Negative HISTOR ICAL RESULTS U Blood Negative Negative HISTORICAL RESULTS Urobilinogen, quant, ur <2.0 0.0 - 2.0 mg/dl HISTORICAL RESULTS Nitrites, ur Negative Negative HISTORI SHALA RESULTS Leukocyte esterase, ur Negative Negative HISTORICAL RESULTS Urine 01/11/2014 11:5 4 AM CDT Result [facility] Golden Chowdary MD LAB BLOOD ORDERABLES Final Result Performing Organization Address [facility] Co de Phone Number HISTORICAL RESULTS * Urine microscopy (01/11/2014 11:54 AM CDT) RBC, ur 1 0 - 3 /hpf HISTORICA L RESULTS WBC, ur 0 0 - 5 /hpf HISTORICA L RESULTS Bacteria, ur Trace Trace HISTORI SHALA RESULTS Epithelial cells, renal, ur 0 0 - 0 /hpf HISTORICAL RESULTS Urine 01/11/2014 11:5 4 AM CDT Result [facility] Golden Chowdary MD LAB BLOOD ORDERABLES Final Result Performing Organization Address [facility] de Phone Number HISTORICAL RESULTS * ELECTROCARDIOGRAPHY (ECG) (01/11/2014) Narrative 01/11/2014 Ordered by an unspecified provider. Result [facility] Mirna Provider ECG ORDERABLES Final Res ult * Blood ABO, Rh, indirect ab screen (01/10/2014 10:51 AM CDT) ABO, Rho(D) O Positive HISTORI SHALA RESULTS Madhavi, indirect Negative HISTORICAL RESULTS Blood specimen (specimen) 01/10/2014 10:51 AM CDT Result [facility] Golden Chowdary MD LAB BLOOD ORDERABLES Final Result Performing Organization Address [facility] Co de Phone Number HISTORICAL RESULTS * Serum C-reactive protein (01/10/2014 10:51 AM CDT) C-RP 9.0 0.0 - 9.9 mg/L HISTORICAL RESULTS Serum 01/10/2014 10:5 1 AM CDT Golden Chowdary MD LAB BLOOD ORDERABLES Final Result Performing Organization Address City/[facility] Co de Phone Number HISTORICAL RESULTS * (ABNORMAL) Blood erythrocyte sedimentation rate (ESR) (01/10/2014 10:51 AM CDT) Erythrocyte sedimentation rate 29.0(H) 0.0 - 15.0 mm/hr HISTORICAL RESULTS Blood specimen (specimen) 01/10/2014 10:51 AM CDT Golden Chowdary MD LAB BLOOD ORDERABLES Final Result Performing Organization Address [facility] de Phone Number HISTORICAL RESULTS * (ABNORMAL) Urinalysis (01/10/2014 10:51 AM CDT) Color, ur Yellow Yellow HISTORICAL RESULTS Clarity, ur Clear Clear HISTORIC AL RESULTS Specific gravity, ur 1.021 1.003 - 1.030 HISTORICAL RESULTS pH, ur 5.0 5.0 - 8.0 HISTORICAL RESULTS Protein, ur Negative Trace HISTORIC AL RESULTS Glucose, ur Negative Negative HISTORIC AL RESULTS Ketones, ur Negative Negative HISTORIC AL RESULTS Bilirubin, ur Negative Negative HISTOR ICAL RESULTS U Blood Negative Negative HISTORICAL RESULTS Urobilinogen, quant, ur <2.0 0.0 - 2.0 mg/dl HISTORICAL RESULTS Nitrites, ur Negative Negative HISTORI SHALA RESULTS Leukocyte esterase, ur 3+(A) Negative HISTORICAL RESULTS Urine 01/10/2014 10:5 1 AM CDT Golden Chowdary MD LAB BLOOD ORDERABLES Final Result Performing Organization Address [facility] de Phone Number HISTORICAL RESULTS * (ABNORMAL) Urine microscopy (01/10/2014 10:51 AM CDT) RBC, ur 2 0 - 3 /hpf HISTORICA L RESULTS WBC, ur 13(H) 0 - 5 /hpf HISTORICA L RESULTS Bacteria, ur Trace Trace HISTORI SHALA RESULTS Epithelial cells, renal, ur 0 0 - 0 /hpf HISTORICAL RESULTS Epithelial cells, squamous, ur 14 /lpf HISTORICAL RESULTS Mucus, ur Small /hpf HISTORICAL RESULTS Urine 01/10/2014 10:5 1 AM CDT Golden Chowdary MD LAB BLOOD ORDERABLES Final Result Performing Organization Address [facility] de Phone Number HISTORICAL RESULTS * Plasma partial thromboplastin time (PTT) (01/10/2014 10:51 AM CDT) Pathologist [facility] APTT 34.3 25.0 - 37.0 seconds HISTORICAL RESULTS Comment: Interpretive Data Therapeutic heparin range:60.0 - 94.0 sec based on correlation with therapeutic heparin activity range of 0.3 -0.7 Units/mL. Current interpretive data was last revised on 2011. Plasma 01/10/2014 10:5 1 AM CDT Golden Chowdary MD LAB BLOOD ORDERABLES Final Result Performing Organization Address [facility] de Phone Number HISTORICAL RESULTS * Plasma basic metabolic panel (01/10/2014 10:51 AM CDT) Pathologist [facility] Sodium 140 135 - 145 mmol/L HISTORICAL RESULTS K, pl 3.7 3.3 - 4.9 mmol/L HISTORICAL RESULTS Chloride 100 97 - 110 mmol/L HISTORICAL RESULTS CO2 32 22 - 32 mmol/L HISTORICAL RESULTS A. gap 8 0 - 16 mmol/L HISTORICAL RESULTS Glucose 85 70 - 199 mg/dl HISTORICAL RESULTS BUN 15 8 - 25 mg/dl HISTORICAL RESULTS Creatinine 0.91 0.70 - 1.30 mg/dl HISTORICAL RESULTS Calcium 9.6 8.6 - 10.3 mg/dl HISTORICAL RESULTS Plasma 01/10/2014 10:5 1 AM CDT Golden Chowdary MD LAB BLOOD ORDERABLES Final Result Performing Organization Address [facility] de Phone Number HISTORICAL RESULTS * (ABNORMAL) Plasma prothrombin time (PT) (01/10/2014 10:51 AM CDT) Prothrombin time (PT) 12.5(H) 9.0 - 12.0 seconds HISTORICAL RESULTS INR 1.18 0.90 - 1.20 HISTORIC AL RESULTS Comment: Interpretive Data Inpatient therapeutic ranges* Atrial fibrillation ?2.0-3.0 INR Venous thrombo-embolism ?2.0-3.0 INR Bioprosthetic heart valve ?* Mechanical heart valve, bileaflet or tilting disk,aortic position ? 2.0-3.0 INR All other,or bileaflet or tilting disk, in mitral position ? 2.5-3.5 INR *See the pharmacy resource directory (PHRED) for an updated copy of the Tool Book at [email or web address] Current Interpretive Data was last revised 2011. Plasma 01/10/2014 10:5 1 AM CDT us Golden Chowdary MD LAB BLOOD ORDERABLES Final Result HISTORICAL RESULTS * (ABNORMAL) Blood cell count (CBC) (01/10/2014 10:51 AM CDT) WBC 6.7 3.8 - 9.8 K/cumm HISTORICAL RESULTS RBC 3.78(L) 4.50 - 5.70 M/cumm HISTORICAL RESULTS Hgb 12.8(L) 13.8 - 17.2 g/dl HISTORICAL RESULTS Hct 37.4(L) 40.7 - 50.3 % HISTORICAL RESULTS MCV 98.9(H) 80.0 - 97.6 fl HISTORICAL RESULTS MCH 33.8(H) 26.7 - 33.7 pg HISTORICAL RESULTS MCHC 34.2 32.7 - 35.5 g/dl HISTORICAL RESULTS Rdw 12.9 11.8 - 14.6 % HISTORICAL RESULTS Platelets 376 140 - 440 K/cumm HISTORICAL RESULTS MPV 8.0 6.8 - 10.4 fl HISTORICAL RESULTS Neutrophils 58.7 38.7 - 74.5 % HISTORICAL RESULTS Lymphocytes 23.4 20.0 - 54.3 % HISTORICAL RESULTS Monos 7.4 4.3 - 13.5 % HISTORICAL RESULTS Eosinophils 9.8(H) 0.0 - 6.0 % HISTORICAL RESULTS Basophils 0.7 0.0 - 3.0 % HISTORICAL RESULTS Neutrophils, abs 3.9 1.8 - 6.6 K/cumm HISTORICAL RESULTS Lymphocytes, abs 1.6 1.2 - 3.3 K/cumm HISTORICAL RESULTS Monocytes, absolute 0.5 0.2 - 1.2 K/cumm HISTORICAL RESULTS Eosinophils, abs 0.7(H) 0.0 - 0.5 K/cumm HISTORICAL RESULTS Basophils, abs 0.0 0.0 - 0.2 K/cumm HISTORICAL RESULTS Blood specimen (specimen) 01/10/2014 10:51 AM CDT Golden Chowdary MD LAB BLOOD ORDERABLES Final Result HISTORICAL RESULTS * Urine (aerobic) culture (01/10/2014 10:51 AM CDT) Urine, clean voided (Unknown) 01/10/2014 10:51 AM CDT 01/10/2014 11:35 AM CDT Narrative HISTORICAL RESULTS - 01/11/2014 1:25 PM CDT Insignificant growth based on current clinical standards. Historical Provider LAB MICROBIOLOGY - GENERA L ORDERABLES Final Result HISTORICAL RESULTS * All Microbiology Report Section (01/10/2014 12:00 AM CDT) 01/10/2014 Narrative HISTORICAL RESULTS - 01/19/2014 10:32 AM CDT ? [facility] ?[address] [facility] ?[place], [place] [address] ? Patient Name: ??CURLY CASH ? Med Rec Number: [id number] ? Fin Number: ?[id number] ? Date: ?1955 ? Sex/Age: ? Male 58 years ? Admit Date: ?01/11/2014 ? Discharge Date: 01/15/2014 ? Doctor: ?Ricarda , Golden G ? Facility: ?[facility] ? Location: ?OTHER ?* Abnormal ??A Alert ??f Footnote ??^ Corrected ??L Low ??H High ?i Interp Data ??@ Ref Lab ? Chart Type:Cumulative ?* * * * MICROBIOLOGY - URINE * * * * ?PROCEDURE: Urine Culture ? SOURCE: Urine, clean voided ? COLLECTED: //14 ??1051 ?BODY SITE: ? STARTED: //14 ??1135 ? FREE TEXT SOURCE: ? FINAL REPORT ? REPORTED: 01/11/14 1325 ? Insignificant growth based on current clinical standards. us Historical Provider LAB MICROBIOLOGY - GENERA L ORDERABLES Final Result HISTORICAL RESULTS documented in this encounter Visit Diagnoses Diagnosis Other specified acquired deformity of head Acute respiratory failure (HCC) Acute respiratory failure Intestinal infection due to Clostridium difficile Intestinal infection due to clostridium difficile Other emphysema (HCC) Other emphysema Aphasia, late effect of cerebrovascular disease 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 Generalized convulsive epilepsy (HCC) Generalized convulsive epilepsy without mention of intractable epilepsy Urinary incontinence Unspecified urinary incontinence Essential hypertension Unspecified essential hypertension Other depressive disorder Tobacco use disorder Other and unspecified hyperlipidemia documented in this encounter Additional Health Concerns Infection Onset Date Last Indicated Resolved Time VRE Comment:Germ watcher auto flagging 11/15/2013 11/15/201311/15 5:00 AM CDT documented as of this encounter
--- OUTSIDE RECORDS SUMMARY | 2024-04-03 17:35 | XMS_ITS | Encounter Summary ---
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); Dysthymic disorder; Pressure ulcer of buttock; Essential hypertension; Hypertrophy of prostate without urinary obstruction and other lower urinary tract symptoms (LUTS); Other and unspecified hyperlipidemia; Esophageal reflux; Obesity; Body mass index 28.0-28.9, adult; Aphasia, late effect of cerebrovascular disease; Pressure ulcer, stage 2 Social History Tobacco Use Types Packs/Day Years Used Date Smoking Tobacco: Never Assessed Sex and Gender Information Value Date Recorded Sex Assigned at Not on file Legal Sex Male 6:59 AM [employer] Gender Identity Not on file Sexual Orientation Not on file documented as of this encounter Last Filed Vital Signs Vital Sign Reading Time Taken Comments Blood Pressure 146/69 09/29/2014 7:37 AM CDT Pulse 70 09/29/2014 7:37 AM CDT Temperature 36.6 ??C (97.9 ??F) 09/29/2014 7:37 AM CD T Respiratory Rate - - Oxygen Saturation 94% 09/29/2014 7:37 AM CDT Inhaled Oxygen Concentration - - Weight 79.6 kg (175 lb 6.4 oz) 09/29/2014 7:37 A M CDT Height 175.3 cm (5' 9 ) 09/29/2014 7:37 AM CDT Body Mass Index 25.9 09/29/2014 7:37 AM CDT documented in this encounter Plan of Treatment Not on file documented as of this encounter Procedures Procedure Name Priority Date/Time Associated Diagnosis Comments CBC WITH AUTO DIFFERENTIAL Routine 09/28/2014 5:33 AM CDT BASIC METABOLIC PANEL Routine 09/28/2014 5:33 AM CDT CBC WITH AUTO DIFFERENTIAL Routine 09/27/2014 6:10 AM CDT BASIC METABOLIC PANEL Routine 09/27/2014 6:10 AM CDT OXYGEN SATURATION, ARTERIAL Routine 09/26/2014 10:10 AM CDT OXYGEN SATURATION, ARTERIAL Routine 09/26/2014 7:02 AM CDT CBC WITH AUTO DIFFERENTIAL Routine 09/26/2014 6:12 AM CDT BASIC METABOLIC PANEL Routine 09/26/2014 6:12 AM CDT US CAROTIDS DUPLEX BILATERAL Routine 09/26/2014 12:00 AM CDT TRANSTHORACIC ECHO (TTE) COMPLETE W DOPPLER/CF Routine 09/26/2014 12:00 AM CDT OXYGEN SATURATION, ARTERIAL Routine 2014 11:58 AM CDT OXYGEN SATURATION, ARTERIAL Routine 2014 7:15 AM CDT CBC WITH AUTO DIFFERENTIAL Routine 2014 6:26 AM CDT TSH Routine 2014 6:26 AM CDT PHOSPHORUS Routine 2014 6:26 AM CDT MAGNESIUM Routine 2014 6:26 AM CDT BASIC METABOLIC PANEL Routine 2014 6:26 AM CDT BLOOD GAS (INCLUDES COOX) Routine 09/24/2014 5:00 PM CDT ACETAMINOPHEN LEVEL Routine 09/24/2014 3 :18 PM CDT SALICYLATE LEVEL Routine 09/24/2014 3:18 PM CDT UA WITH CULTURE REFLEX Routine 5 2:00 PM CDT DRUGS OF ABUSE SCREEN, URINE WITHOUT CONFIRMATION Routine 09/24/2014 2:00 PM CDT TNI WITH LIPID PANEL Routine 09/24/2014 1:32 PM CDT CBC WITH AUTO DIFFERENTIAL Routine 09/24/2014 1:32 PM CDT APTT Routine 09/24/2014 1:32 PM CDT PROTIME-INR Routine 09/24/2014 1:32 PM CDT ETHANOL Routine 09/24/2014 1:32 PM CDT COMPREHENSIVE METABOLIC PANEL Routine 09/24/2014 1:32 PM CDT CARDIOLOGY REPORT 09/24/2014 12: [address] STROKE PROTOCOL WO CONTRAST Routine 09/24/2014 12:00 AM CDT MRI BRAIN W WO CONTRAST Routine 09/24/2014 12:00 AM CDT XR CHEST 1 VIEW Routine 09/24/2014 12:00 AM CDT documented in this encounter Results * (ABNORMAL) CBC with auto differential (09/28/2014 5:33 AM CDT) WBC 7.3 4.6 - 10.2 x10 3/ul 09/28/2014 6:29 AM CDT [facility] HISTORICAL RESULTS RBC 3.70(L) 4.11 - 5.71 x10 6/ul 09/28/2014 6:29 AM [employer]JustShare[employer] [facility] [employer] HISTORICAL RESULTS Hemoglobin 12.4(L) 13.0 - 17.0 g/dl 09/28/2014 6:29 AM [facility] Hct 35.9(L) 38.2 - 48.5 % 09/28/2014 6:29 AM T [facility] HISTORICAL RESULTS MCV 97.0 80.0 - 97.0 fl 09/28/2014 6:29 AM [facility] MCH 33.5(H) 27.0 - 31.2 pg 09/28/2014 6:29 AM [employer] [facility] [employer] HISTORICAL RESULTS MCHC 34.5 31.8 - 35.4 g/dl 09/28/2014 6:29 AM [employer] [facility] [employer] HISTORICAL RESULTS RDW 12.0 11.6 - 14.8 % 09/28/2014 6:29 AM [employer] [facility] [employer] HISTORICAL RESULTS Plt Count 319 124 - 400 x10 3/ul 09/28/2014 6:29 AM [employer] [facility] [employer] [facility] HISTORICAL RESULTS MPV 9.7 7.4 - 10.4 fl 09/28/2014 6:29 AM [employer] [facility] [employer] HISTORICAL RESULTS Differential Method AUTOMATED DIFF --------- -- 09/28/2014 6:29 AM [employer] [facility] HISTORICAL RESULTS Neut % 55.0 37.0 - 85.0 % 09/28/2014 6:29 AM [employer] [facility] HISTORICAL RESULTS Immature Gran % 0.1 0.0 - 3.0 % 09/28/2014 6:29 AM [employer] [facility] [employer] [facility] HISTORICAL RESULTS Lymph % 31.0 5.0 - 45.0 % 09/28/2014 6:29 AM [employer] [facility] [employer] HISTORICAL RESULTS [place] % 8.4 3.0 - 15.0 % 09/28/2014 6:29 AM [employer] [facility] HISTORICAL RESULTS Eos % 4.7 0.0 - 7.0 % 09/28/2014 6:29 AM [employer] [facility] [employer] [facility] HISTORICAL RESULTS Baso % 0.8 0.0 - 2.0 % 09/28/2014 6:29 AM [employer] [facility] [employer] [facility] HISTORICAL RESULTS ABSOLUTE COUNTS ABSOLUTE COUNTS --------- -- Absolute Neuts (auto) 4.0 1.7 - 8.7 x10 3/ul Immature Gran # 0.0 0.0 - 0.3 x10 3/ul Absolute Lymphs (auto) 2.3 0.2 - 4.6 x10 3/ul 09/28/2014 6:29 AM CDT [facility] HISTORICAL RESULTS Absolute Monos (auto) 0.6 0.1 - 1.5 x10 3/ul Absolute Eos (auto) 0.3 0.0 - 0.7 x10 3/ul Absolute Basos (auto) 0.1 0.0 - 0.2 x10 3/ul 09/28/2014 5:33 AM CDT 09/28/2014 6:06 AM CDT us Tracie Hinds LAB BLOOD ORDERABLES Final Res ult [facility] HISTORICAL RESULTS * (ABNORMAL) Basic metabolic panel (09/28/2014 5:33 AM CDT) Sodium 142 135 - 145 mmol/L Potassium 3.3 3.3 - 5.1 mmol/L Chloride 101 96 - 108 mmol/L Carbon Dioxide 27 22 - 32 mmol/L Anion Gap 14 7 - 16 Glucose 104(H) 70 - 100 mg/dL BUN 25(H) 8 - 23 mg/dL Creatinine 0.7 0.5 - 1.3 mg/dL Kidney Disease Stage > 90 mL/MIN Comment: [...] Kidney failure or on dialysis @ Calcium 9.4 8.8 - 10.2 mg/dL 09/28/2014 5:33 AM CDT 09/28/2014 6:06 AM CDT us Tracie Willamsen LAB BLOOD ORDERABLES Final Res ult [facility] HISTORICAL RESULTS * (ABNORMAL) CBC with auto differential (09/27/2014 6:10 AM CDT) WBC 9.6 4.6 - 10.2 x10 3/ul RBC 3.94(L) 4.11 - 5.71 x10 6/ul 09/27/2014 7:02 AM [employer] [facility] [employer] HISTORICAL RESULTS Hemoglobin 13.0 13.0 - 17.0 g/dl 09/27/2014 7:02 AM T [facility] HISTOR[facility] RESULTS Hct 37.9(L) 38.2 - 48.5 % 09/27/2014 7:02 AM T [facility] [employer] [facility] HISTORICAL RESULTS MCV 96.2 80.0 - 97.0 fl 09/27/2014 7:02 AM [employer] [facility] HISTOR[facility] RESULTS MCH 33.0(H) 27.0 - 31.2 pg 09/27/2014 7:02 AM [employer] [facility] [employer] HISTORICAL RESULTS MCHC 34.3 31.8 - 35.4 g/dl 09/27/2014 7:02 AM [employer] [facility] [employer] [facility] HISTORICAL RESULTS RDW 11.9 11.6 - 14.8 % 09/27/2014 7:02 AM [employer] [facility] [employer] HISTORICAL RESULTS Plt Count 374 124 - 400 x10 3/ul 09/27/2014 7:02 AM [employer] [facility] [employer] [facility] HISTORICAL RESULTS MPV 9.5 7.4 - 10.4 fl 09/27/2014 7:02 AM [employer] [facility] [employer] [facility] HISTORICAL RESULTS Differential Method AUTOMATED DIFF --------- -- 09/27/2014 7:02 AM [employer] [facility] HISTORICAL RESULTS Neut % 73.3 37.0 - 85.0 % 09/27/2014 7:02 AM [employer] [facility] [employer] [facility] HISTORICAL RESULTS Immature Gran % 0.3 0.0 - 3.0 % 09/27/2014 7:02 AM [employer] [facility] [employer] [facility] HISTORICAL RESULTS Lymph % 14.7 5.0 - 45.0 % 09/27/2014 7:02 AM [employer] [facility] [employer] HISTORICAL RESULTS [place] % 7.1 3.0 - 15.0 % 09/27/2014 7:02 AM [employer] [facility] [employer] HISTORICAL RESULTS Eos % 3.8 0.0 - 7.0 % 09/27/2014 7:02 AM [employer] [facility] [employer] [facility] HISTORICAL RESULTS Baso % 0.8 0.0 - 2.0 % 09/27/2014 7:02 AM [employer] [facility] [employer] [facility] HISTORICAL RESULTS ABSOLUTE COUNTS ABSOLUTE COUNTS --------- -- Absolute Neuts (auto) 7.0 1.7 - 8.7 x10 3/ul Immature Gran # 0.0 0.0 - 0.3 x10 3/ul Absolute Lymphs (auto) 1.4 0.2 - 4.6 x10 3/ul Absolute Monos (auto) 0.7 0.1 - 1.5 x10 3/ul Absolute Eos (auto) 0.4 0.0 - 0.7 x10 3/ul Absolute Basos (auto) 0.1 0.0 - 0.2 x10 3/ul 09/27/2014 6:10 AM CDT 09/27/2014 6:55 AM CDT Tracie Hinds LAB BLOOD ORDERABLES Final Res ult [facility] HISTORICAL RESULTS * (ABNORMAL) Basic metabolic panel (09/27/2014 6:10 AM CDT) Sodium 141 135 - 145 mmol/L Potassium 3.1(L) 3.3 - 5.1 mmol/L Chloride 101 96 - 108 mmol/L Carbon Dioxide 27 22 - 32 mmol/L Anion Gap 13 7 - 16 Glucose 111(H) 70 - 100 mg/dL BUN 21 8 - 23 mg/dL Creatinine 0.8 0.5 - 1.3 mg/dL Kidney Disease Stage > 90 mL/MIN Comment: [...] Kidney failure or on dialysis @ Calcium 9.6 8.8 - 10.2 mg/dL 09/27/2014 6:10 AM CDT 09/27/2014 6:55 AM CDT us Tracie Hinds LAB BLOOD ORDERABLES Final Res ult [facility] HISTORICAL RESULTS * Oxygen saturation, arterial (09/26/2014 10:10 AM CDT) Specimen Type Oximeter Puncture Site FINGER 09/26/2014 10:59 AM CDT [facility] HISTORICAL RESULTS O2 Sat Pulse Oximetry 94.0 >=90.0 % 09/26/2014 10:59 AM CDT [facility] HISTORICAL RESULTS FiO2 21.0 % Assessment Consultant ID [id number] 09/26/2014 10:1 0 AM CDT 09/26/2014 10:59 AM CDT Tracie Hinds LAB BLOOD ORDERABLES Final Res ult [facility] HISTORICAL RESULTS * Oxygen saturation, arterial (09/26/2014 7:02 AM CDT) Specimen Type Oximeter Puncture Site FINGER O2 Sat Pulse Oximetry 96.0 >=90.0 % FiO2 21.0 % Assessment Consultant ID CRM 09/26/2014 7:02 AM CDT 09/26/2014 8:29 AM CDT Tracie Hinds LAB BLOOD ORDERABLES Final Res ult [facility] HISTORICAL RESULTS * (ABNORMAL) CBC with auto differential (09/26/2014 6:12 AM CDT) WBC 10.2 4.6 - 10.2 x10 3/ul 09/26/2014 6:52 AM CDT [facility] HISTORICAL RESULTS RBC 4.13 4.11 - 5.71 x10 6/ul Hemoglobin 13.9 13.0 - 17.0 g/dl 09/26/2014 6:52 AM [facility] Hct 40.2 38.2 - 48.5 % 09/26/2014 6:52 AM [facility] MCV 97.3(H) 80.0 - 97.0 fl 09/26/2014 6:52 AM [facility] MCH 33.7(H) 27.0 - 31.2 pg 09/26/2014 6:52 AM [facility] MCHC 34.6 31.8 - 35.4 g/dl 09/26/2014 6:52 AM [facility] RES[facility] RDW 12.1 11.6 - 14.8 % 09/26/2014 6:52 AM [facility] Plt Count 356 124 - 400 x10 3/ul 09/26/2014 6:52 AM [facility] MPV 9.4 7.4 - 10.4 fl 09/26/2014 6:52 AM [facility] Differential Method AUTOMATED DIFF --------- -- 09/26/2014 6:52 AM [facility] Neut % 72.9 37.0 - 85.0 % 09/26/2014 6:52 AM [facility] Immature Gran % 0.3 0.0 - 3.0 % 09/26/2014 6:52 AM [facility] Lymph % 16.8 5.0 - 45.0 % 09/26/2014 6:52 AM [facility] [place] % 7.1 3.0 - 15.0 % 09/26/2014 6:52 AM [facility] Eos % 2.2 0.0 - 7.0 % 09/26/2014 6:52 AM [facility] Baso % 0.7 0.0 - 2.0 % 09/26/2014 6:52 AM [facility] ABSOLUTE COUNTS ABSOLUTE COUNTS --------- -- 09/26/2014 6:52 AM [facility] Absolute Neuts (auto) 7.5 1.7 - 8.7 x10 3/ul 09/26/2014 6:52 AM CDT [facility] HISTORICAL RESULTS Immature Gran # 0.0 0.0 - 0.3 x10 3/ul 09/26/2014 6:52 AM CDT [facility] HISTORICAL RESULTS Absolute Lymphs (auto) 1.7 0.2 - 4.6 x10 3/ul 09/26/2014 6:52 AM CDT [facility] HISTORICAL RESULTS Absolute Monos (auto) 0.7 0.1 - 1.5 x10 3/ul 09/26/2014 6:52 AM CDT [facility] HISTORICAL RESULTS Absolute Eos (auto) 0.2 0.0 - 0.7 x10 3/ul Absolute Basos (auto) 0.1 0.0 - 0.2 x10 3/ul 09/26/2014 6:12 AM CDT 09/26/2014 6:38 AM CDT Tracie Hinds LAB BLOOD ORDERABLES Final Res ult [facility] HISTORICAL RESULTS * (ABNORMAL) Basic metabolic panel (09/26/2014 6:12 AM CDT) Sodium 143 135 - 145 mmol/L Potassium 3.4 3.3 - 5.1 mmol/L Chloride 101 96 - 108 mmol/L Carbon Dioxide 27 22 - 32 mmol/L Anion Gap 15 7 - 16 Glucose 110(H) 70 - 100 mg/dL BUN 23 8 - 23 mg/dL Creatinine 0.8 0.5 - 1.3 mg/dL 09/26/2014 7:04 AM CDT [facility] HISTORICAL RESULTS Kidney Disease Stage > 90 mL/MIN 09/26/2014 7:04 AM CDT [facility] HISTORICAL RESULTS Comment: NOTE; ??The GFR is [...] Kidney failure or on dialysis @ Calcium 9.6 8.8 - 10.2 mg/dL 09/26/2014 7:04 AM CDT [facility] HISTORICAL RESULTS 09/26/2014 6:12 AM CDT 09/26/2014 6:38 AM CDT us Tracie Hinds LAB BLOOD ORDERABLES Final Res ult [facility] HISTORICAL RESULTS * US Carotids Duplex Bilateral (09/26/2014 12:00 AM CDT) Anatomical Region Laterality Modality Vascular Bilateral Ultrasound 09/26/2014 Impressions 09/26/2014 5:04 PM CDT ??No significant stenosis in the right internal carotid artery, moderate stenosis in the left internal carotid artery with 50%-79% diameter stenosis. ??There is also low diastolic flow on the left side which may indicate more cerebral vascular disease. NTS Job: [id number] Dictated By: Shay Dobbins MD Dictated For: hSay Dobbins MD [EOD] Narrative 09/26/2014 5:04 PM CDT DATE OF SERVICE: 09/26/2014 REASON FOR STUDY: ??Speech disturbance. Vertebral artery flow was antegrade bilaterally. ??Minimal plaque right internal carotid artery, less than 50% diameter stenosis. ??Moderate plaque left internal carotid artery with a 50%-79% diameter stenosis. ??On the right side, there is no increase in peak systolic velocity. ??The peak systolic velocity is 80 cm/second. ??On the left side, the peak systolic velocity is 180 cm/second; however, the diastolic velocity is very low at 19 cm/second, which may indicate more distal cerebral vascular occlusive disease. Procedure Note Provider, MD Mirna - 08/15/2020 DATE OF SERVICE: 09/26/2014 REASON FOR STUDY: Speech disturbance. Vertebral artery flow was antegrade bilaterally. Minimal plaque rightinternal carotid artery, less than 50% diameter stenosis. Moderate plaqueleft internal carotid artery with a 50%-79% diameter stenosis. On theright side, there is no increase in peak systolic velocity. The peaksystolic velocity is 80 cm/second. On the left side, the peak systolicvelocity is 180 cm/second; however, the diastolic velocity is very low at19 cm/second, which may indicate more distal cerebral vascular occlusivedisease. IMPRESSION: No significant stenosis in the right internal carotid artery,moderate stenosis in the left internal carotid artery with 50%-79%diameter stenosis. There is also low diastolic flow on the left sidewhich may indicate more cerebral vascular disease. NTS Job: [id number] Dictated By: Shay Dobbins MD Dictated For: Shay Dobbins MD [EOD] us Tracie Hinds IM US PROCEDURES Final Result * Transthoracic Echo Complete W Doppler/CF (09/26/2014 12:00 AM CDT) Anatomical Region Laterality Modality Ultrasound 09/26/2014 Narrative 09/27/2014 2:16 PM CDT Results viewable in EMR, Cardiovascular [EOD] Procedure Note Provider, Mirna, - 08/15/2020 Results viewable in EMR, Cardiovascular [EOD] us Tracie Hinds CV ECHO PROCEDURES Final Resul t * Oxygen saturation, arterial (2014 11:58 AM CDT) Specimen Type Oximeter 2014 12:31 PM CDT [facility] HISTORICAL RESULTS Puncture Site FINGER 2014 12:31 PM CDT [facility] HISTORICAL RESULTS O2 Sat Pulse Oximetry 95.0 >=90.0 % 2014 12:31 PM CDT [facility] HISTORICAL RESULTS FiO2 21.0 % 2014 12:31 PM CDT [facility] HISTORICAL RESULTS Assessment Consultant ID [id number] 2014 12:31 PM CDT [facility] HISTORICAL RESULTS 2014 11:5 8 AM CDT 2014 12:31 PM CDT us Tracie Hinds LAB BLOOD ORDERABLES Final Res ult [facility] HISTORICAL RESULTS * Oxygen saturation, arterial (2014 7:15 AM CDT) Specimen Type Oximeter 2014 7:51 AM CDT [facility] HISTORICAL RESULTS Puncture Site FINGER 2014 7:51 AM CDT [facility] HISTORICAL RESULTS O2 Sat Pulse Oximetry 93.0 >=90.0 % 2014 7:51 AM CDT [facility] HISTORICAL RESULTS FiO2 21.0 % 2014 7:51 AM CDT [facility] HISTORICAL RESULTS Assessment Consultant ID [id number] 2014 7:51 AM CDT [facility] HISTORICAL RESULTS 2014 7:15 AM CDT 2014 7:50 AM CDT Tracie Willamsen LAB BLOOD ORDERABLES Final Res ult [facility] HISTORICAL RESULTS * Phosphorus (2014 6:26 AM CDT) Phosphorus 3.6 2.5 - 4.5 mg/dL 2014 7:08 AM CDT [facility] HISTORICAL RESULTS 2014 6:26 AM CDT 2014 6:39 AM CDT Tracie Hinds LAB BLOOD ORDERABLES Final Res ult Performing Organization Address [facility] Co de Phone Number [facility] HISTORICAL RESULTS * Magnesium (2014 6:26 AM CDT) Magnesium 1.7 1.6 - 2.6 mg/dL 2014 7:08 AM CDT [facility] HISTORICAL RESULTS Comment:Magnesium sulfate th erapy: 3.0-9.1 mg/dL 2014 6:26 AM CDT 2014 6:39 AM CDT Tracie Hinds LAB BLOOD ORDERABLES Final Res ult Performing Organization Address City/[facility]/ZIP Co de Phone Number [facility] HISTORICAL RESULTS * (ABNORMAL) CBC with auto differential (2014 6:26 AM CDT) Pathologist [facility] WBC 8.4 4.6 - 10.2 x10 3/ul 2014 6:49 AM CDT [facility] HISTORICAL RESULTS RBC 3.90(L) 4.11 - 5.71 x10 6/ul 2014 6:49 AM T [facility] HISTORICAL RESULTS Hemoglobin 12.8(L) 13.0 - 17.0 g/dl 2014 6:49 AM T [facility] HISTORICAL RESULTS Hct 38.5 38.2 - 48.5 % 2014 6:49 AM CDT [facility] MCV 98.7(H) 80.0 - 97.0 fl 2014 6:49 AM [facility] MCH 32.8(H) 27.0 - 31.2 pg 2014 6:49 AM [facility] MCHC 33.2 31.8 - 35.4 g/dl 2014 6:49 AM [facility] RDW 12.3 11.6 - 14.8 % 2014 6:49 AM [facility] Plt Count 346 124 - 400 x10 3/ul 2014 6:49 AM [employer] [facility] HISTORICAL RESULTS MPV 9.7 7.4 - 10.4 fl 2014 6:49 AM [facility] Differential Method AUTOMATED DIFF --------- -- 2014 6:49 AM [employer] [facility] HISTORICAL RESULTS Neut % 68.3 37.0 - 85.0 % 2014 6:49 AM [employer] [facility] HISTORICAL RESULTS Immature Gran % 0.2 0.0 - 3.0 % 2014 6:49 AM [employer] [facility] HISTORICAL RESULTS Lymph % 19.4 5.0 - 45.0 % 2014 6:49 AM [employer] [facility] HISTORICAL RESULTS [place] % 7.7 3.0 - 15.0 % 2014 6:49 AM [employer] [facility] HISTORICAL RESULTS Eos % 3.8 0.0 - 7.0 % 2014 6:49 AM [employer] [facility] HISTORICAL RESULTS Baso % 0.6 0.0 - 2.0 % 2014 6:49 AM [facility] ABSOLUTE COUNTS ABSOLUTE COUNTS --------- -- 2014 6:49 AM [employer] [facility] HISTOR[facility] RESULTS Absolute Neuts (auto) 5.7 1.7 - 8.7 x10 3/ul 2014 6:49 AM [employer] [facility] [employer] [facility] HISTORICAL RESULTS Immature Gran # 0.0 0.0 - 0.3 x10 3/ul 2014 6:49 AM CDT [facility] HISTORICAL RESULTS Absolute Lymphs (auto) 1.6 0.2 - 4.6 x10 3/ul 2014 6:49 AM CDT [facility] HISTORICAL RESULTS Absolute Monos (auto) 0.6 0.1 - 1.5 x10 3/ul 2014 6:49 AM T [facility] HISTORICAL RESULTS Absolute Eos (auto) 0.3 0.0 - 0.7 x10 3/ul 2014 6:49 AM T [facility] HISTORICAL RESULTS Absolute Basos (auto) 0.1 0.0 - 0.2 x10 3/ul 2014 6:49 AM T [facility] HISTORICAL RESULTS 2014 6:26 AM CDT 2014 6:39 AM CDT Tracie Hinds LAB BLOOD ORDERABLES Final Res ult [facility] HISTORICAL RESULTS * (ABNORMAL) Basic metabolic panel (2014 6:26 AM CDT) Sodium 144 135 - 145 mmol/L 2014 7:08 AM [facility] HISTORICAL RESULTS Potassium 3.3 3.3 - 5.1 mmol/L 2014 7:08 AM [facility] HISTORICAL RESULTS Chloride 102 96 - 108 mmol/L 2014 7:08 AM [facility] HISTORICAL RESULTS Carbon Dioxide 31 22 - 32 mmol/L 2014 7:08 AM [facility] HISTORICAL RESULTS Anion Gap 11 7 - 16 2014 7:08 AM [facility] HISTORICAL RESULTS Glucose 106(H) 70 - 100 mg/dL 2014 7:08 AM [facility] HISTORICAL RESULTS BUN 15 8 - 23 mg/dL 2014 7:08 AM [facility] HISTORICAL RESULTS Creatinine 0.8 0.5 - 1.3 mg/dL 2014 7:08 AM [facility] HISTORICAL RESULTS Kidney Disease Stage > 90 mL/MIN 2014 7:08 AM [facility] Comment: NOTE; ??The GFR is [...] Kidney failure or on dialysis @ Calcium 9.3 8.8 - 10.2 mg/dL 2014 7:08 AM CDT [facility] 2014 6:26 AM CDT 2014 6:39 AM CDT Tracie Willamsen LAB BLOOD ORDERABLES Final Res ult Performing Organization Address [facility] Co de Phone Number [facility] * TSH (2014 6:26 AM CDT) TSH 0.55 0.27 - 4.20 uIU/mL 2014 7:15 AM CDT [facility] HISTORICAL RESULTS 2014 6:26 AM CDT 2014 6:39 AM CDT Tracie Flowers Guzman LAB BLOOD ORDERABLES Final Res ult Performing Organization Address [facility]/ZIP Co de Phone Number [facility]ISTOR[facility] RES[facility] * (ABNORMAL) Blood gas (includes COOX) (09/24/2014 5:00 PM [facility]) Specimen Type ARTERIAL Puncture Site RR Patient Temperature 37 C 09/24 5:11 PM [facility] HISTORICAL RESULTS pH 7.449 7.350 - 7.450 pCO2 43.2 34.0 - 45.0 mmHg pO2 80.0(L) 84.0 - 92.0 mmHg HCO3 29.5(H) 22.0 - 26.0 mmol/L Total CO2 30.8(H) 26.0 - 28.0 mmol/L Base Excess 5.3(H) -2.0 - 2.0 mmol/L Hemoglobin 13.1(L) 13.5 - 18.0 g/dL O2 Saturation 93.2(L) >=95.0 % ABG Carboxyhemoglobin 2.5 <=3.0 % 5:11 PM [facility] HISTORICAL RESULTS ABG Methemoglobin 0.9 0.4 - 1.5 % ABG O2 Content 17.2(L) 17.6 - 24.3 Vol % A-a O2 Difference 146.0(H) <=10.0 015 5:11 PM [facility] HISTORICAL RESULTS a/A Ratio 0.4(L) >=0.8 09/24/2014 5:11 PM CDT [facility] HISTORICAL RESULTS O2 Delivery Device CANNULA 2014 5:11 PM CDT [facility] HISTORICAL RESULTS Liter Flow 5.0 09/24/2014 5:11 PM CDT [facility] HISTORICAL RESULTS FiO2 40.0 % 09/24/2014 5:11 PM CDT [facility] HISTORICAL RESULTS BG Specimen Comment [id number] 09/24 5:11 PM CDT [facility] HISTORICAL RESULTS Assessment Consultant ID [email or web address] 09/24/2014 5:11 PM CDT [facility] HISTORICAL RESULTS 09/24/2014 5:00 PM CDT 09/24/2014 5:06 PM CDT [facility] HISTORICAL RESULTS - 09/24/2014 5:11 PM CDT Conditions Room Air ?? Source Arterial Alli Paula DO LAB BLOOD ORDERABLES Final Result Performing Organization Address [facility]/ZIP Co de Phone Number [facility] HISTORICAL RESULTS * Salicylate level (09/24/2014 3:18 PM CDT) Salicylates < 1 0 - 29 mg/dL 09/24/2014 3:56 PM CDT [facility] HISTORICAL RESULTS 09/24/2014 3:18 PM CDT 09/24/2014 3:25 PM CDT [facility] HISTORICAL RESULTS - 09/24/2014 3:56 PM CDT NO SPECIMEN TO ADD TO PREVIOUS TESTS Alli Paula DO LAB BLOOD ORDERABLES Final Result [facility] HISTORICAL RESULTS * Acetaminophen level (09/24/2014 3:18 PM CDT) Acetaminophen < 15.0 10.0 - 30.0 ug/mL 09/24/2014 3:56 PM CDT [facility] HISTORICAL RESULTS Comment: Acetaminophen concentrations greater than 200 ug/mL at four hours after ingestion and greater than 50 ug/mL at 12 hours after ingestion are often associated with toxicity. 09/24/2014 3:18 PM CDT 09/24/2014 3:25 PM CDT Narrative [facility] HISTORICAL RESULTS - 09/24/2014 3:56 PM CDT NO SPECIMEN TO ADD TO PREVIOUS TESTS us Alli Paula DO LAB BLOOD ORDERABLES Final Result [facility] HISTORICAL RESULTS * (ABNORMAL) Drug Screen, Urine without Confirmation (09/24/2014 2:00 PM CDT) Ur Amphetamine Screen NEGATIVE NEGATIVE Comment: Cutoff Limit: ??1000 ng/mL Note: ??Positive results from this drug screen are unconfirmed. ??Unconfirmed screening results should not be used for non-medical purposes. Ur Barbiturates Screen NEGATIVE NEGATIVE Comment:Cutoff limit: 200 ng /mL U Benzodiazepines Scrn POSITIVE(H) NEGATIVE Comment: RESULT CALLED at: 164009/24/14 by: [id number] to: DR ALONSO ?? CONFIRMATION on Positive result requested:NO Cutoff limit: 300 ng/mL U Cannabinoids Screen POSITIVE(H) NEGATIVE Comment: RESULT CALLED at: 164209/24/14 by: [id number] to: DR ALONSO ? CONFIRMATION on Positive result requested:NO Cutoff Limit: 50 ng/mL U Cocaine Metab Screen NEGATIVE NEGATIVE Comment:Cutoff limit: 300 ng /mL Urine Opiates Screen POSITIVE(H) NEGATIVE Comment: RESULT CALLED at: 164209/24/14 by: [id number] to: DR ALONSO ?? CONFIRMATION on Positive result requested:NO Cutoff Limit: ??300 ng/mL Urine Creatinine/JANET 107.0 mg/dL Comment:If Creatinine is < 4 0 mg/dL, recollection is suggested. 09/24/2014 2:00 PM CDT 09/24/2014 3:24 PM CDT Narrative [facility] HISTORICAL RESULTS - 09/24/2014 3:52 PM CDT Collected By jk Alli Paula DO LAB URINE ORDERABLES Final Result [facility] HISTORICAL RESULTS * UA with Culture Reflex (09/24/2014 2:00 PM CDT) Ur Collection Type STRAIGHT CATH Ur Culture Indicated? C&S NOT INDICATED Urine Color YELLOW YELLOW Urine Clarity CLEAR CLEAR Urine Glucose (UA) NORMAL NORMAL mg/dL Urine Bilirubin NEGATIVE NEGATIVE mg/dl Urine Ketones NEGATIVE NEGATIVE mg/dL Ur Specific [place] 1.010 1.005 - 1.025 Urine Blood NEGATIVE NEGATIVE mg/dl Urine pH 7.0 5.0 - 8.0 Urine Protein NEGATIVE NEGATIVE mg/dL Urine Urobilinogen NORMAL NORMAL mg/dL Urine Nitrite NEGATIVE NEGATIVE Ur Leukocyte Esterase NEGATIVE NEGATIVE Ian/ul Ur Microscopic Review Not Indicated 09/24/2014 2:00 PM CDT 09/24/2014 2:52 PM CDT Alli Paula DO LAB URINE ORDERABLES Final Result Performing Organization Address [facility] de Phone Number [facility] HISTORICAL RESULTS * Ethanol (09/24/2014 1:32 PM CDT) Ethyl Alcohol < 10 mg/dL Comment:% = mg/dL x .001 09/24/2014 1:32 PM CDT 09/24/2014 1:35 PM CDT Alli Paula DO LAB BLOOD ORDERABLES Final Result Performing Organization Address [facility] Phone Number [facility] HISTORICAL RESULTS * (ABNORMAL) TNI with LIPID PANEL (09/24/2014 1:32 PM CDT) Pathologist [facility] Troponin I < 0.300 0.000 - 0.300 ng/mL Comment: Reference using [place] Chemiluminescence ? Negative: Repeat in 4-6 hours as indicated. Triglycerides 52 0 - 199 mg/dL Comment:12 hr pc highly luis mmended for Triglyceride Cholesterol 82 0 - 199 mg/dL Comment: Borderline: ??200-239 High Risk: ?? >239 HDL Cholesterol 35(L) 40 - 60 mg/dL Comment: Major Risk ?< 40 mg/dL Moderate Risk ?40-60 mg/dL Negative Risk ?? > 60 mg/dL LDL Cholesterol, Calc 37 0 - 130 mg/dL Comment:High Risk > 159 mg/d L Cholesterol/HDL Ratio 2.3 09/24/2014 2:06 PM CDT [facility] HISTORICAL RESULTS Comment: Cholesterol / HDL Ratio 3.5:1 or less is desirable. Cholesterol / HDL Ratio greater than 5:1 is considered higher risk for developing heart disease. 09/24/2014 1:32 PM CDT 09/24/2014 1:35 PM CDT Alli Paula DO LAB BLOOD ORDERABLES Final Result Performing Organization Address [facility] de Phone Number [facility] HISTORICAL RESULTS * Protime-INR (09/24/2014 1:32 PM CDT) PT 13.6 12.2 - 14.8 SECONDS 09/24/2014 1:46 PM CDT [facility] HISTORICAL RESULTS INR 1.01 0.01 - 5.99 09/24/2014 1:46 PM CDT [facility] HISTORICAL RESULTS Comment: Recommended Therapeutic range for Oral Anticoagulant Therapy No anti-coagulation therapy ? Normal Range: ?0.8-1.4 Anti-coagulation therapy ? Low intensity therapy ?2.0-3.0 ? High intensity therapy ?? 2.5-3.5 Critical Value ? Greater than or equal to 6.0 Patients should be monitored for serious bleeding. ?? 09/24/2014 1:32 PM CDT 09/24/2014 1:35 PM CDT Alli Paula DO LAB BLOOD ORDERABLES Final Result Performing Organization Address [facility] de Phone Number [facility] HISTORICAL RESULTS * aPTT (09/24/2014 1:32 PM CDT) APTT 25 24 - 38 SECONDS 09/24/2014 1:47 PM CDT [facility] HISTORICAL RESULTS 09/24/2014 1:32 PM CDT 09/24/2014 1:35 PM CDT Alli Paula DO LAB BLOOD ORDERABLES Final Result [facility] HISTORICAL RESULTS * (ABNORMAL) Comprehensive metabolic panel (09/24/2014 1:32 PM CDT) Sodium 145 135 - 145 mmol/L 09/24/2014 2:06 PM CDT [facility] HISTORICAL RESULTS Potassium 4.1 3.3 - 5.1 mmol/L 09/24/2014 2:06 PM CDT [facility] HISTORICAL RESULTS Chloride 101 96 - 108 mmol/L Carbon Dioxide 33(H) 22 - 32 mmol/L Anion Gap 11 7 - 16 Glucose 120(H) 70 - 100 mg/dL BUN 12 6 - 20 mg/dL Creatinine 0.9 0.5 - 1.3 mg/dL Kidney Disease Stage > 90 mL/MIN Comment: [...] Kidney failure or on dialysis @ Calcium 9.9 8.6 - 10.0 mg/dL Total Protein 8.9(H) 6.4 - 8.3 g/dL Albumin 4.2 3.5 - 5.2 g/dL Globulin 4.7(H) 2.3 - 3.5 gm/dL Albumin/Globulin Ratio 0.9(L) 1.1 - 1.8 Total Bilirubin 0.4 0.0 - 1.2 mg/dL AST 15 0 - 40 U/L ALT 13 0 - 41 U/L Alkaline Phosphatase 86 40 - 129 U/L 09/24/2014 1:32 PM CDT 09/24/2014 1:35 PM CDT Alli Paula DO LAB BLOOD ORDERABLES Final Result [facility] HISTORICAL RESULTS * (ABNORMAL) CBC with auto differential (09/24/2014 1:32 PM CDT) WBC 10.4(H) 4.6 - 10.2 x10 3/ul RBC 4.18 4.11 - 5.71 x10 6/ul Hemoglobin 13.8 13.0 - 17.0 g/dl 09/24/2014 1:40 PM CDT [facility] HISTORICAL RESULTS Hct 41.2 38.2 - 48.5 % 09/24/2014 1:40 PM CDT [facility] HISTORICAL RESULTS MCV 98.6(H) 80.0 - 97.0 fl MCH 33.0(H) 27.0 - 31.2 pg MCHC 33.5 31.8 - 35.4 g/dl RDW 12.1 11.6 - 14.8 % Plt Count 410(H) 124 - 400 x10 3/ul MPV 9.2 7.4 - 10.4 fl Differential Method AUTOMATED DIFF --------- -- Neut % 75.1 37.0 - 85.0 % Immature Gran % 0.3 0.0 - 3.0 % Lymph % 14.3 5.0 - 45.0 % [place] % 7.1 3.0 - 15.0 % Eos % 2.7 0.0 - 7.0 % Baso % 0.5 0.0 - 2.0 % ABSOLUTE COUNTS ABSOLUTE COUNTS --------- -- Absolute Neuts (auto) 7.8 1.7 - 8.7 x10 3/ul 09/24/2014 1:40 PM CDT [facility] HISTORICAL RESULTS Immature Gran # 0.0 0.0 - 0.3 x10 3/ul 09/24/2014 1:40 PM CDT [facility] HISTORICAL RESULTS Absolute Lymphs (auto) 1.5 0.2 - 4.6 x10 3/ul 09/24/2014 1:40 PM CDT [facility] HISTORICAL RESULTS Absolute Monos (auto) 0.7 0.1 - 1.5 x10 3/ul 09/24/2014 1:40 PM CDT [facility] HISTORICAL RESULTS Absolute Eos (auto) 0.3 0.0 - 0.7 x10 3/ul 09/24/2014 1:40 PM CDT [facility] HISTORICAL RESULTS Absolute Basos (auto) 0.1 0.0 - 0.2 x10 3/ul 09/24/2014 1:40 PM CDT [facility] HISTORICAL RESULTS 09/24/2014 1:32 PM CDT 09/24/2014 1:35 PM CDT us Alli Paula DO LAB BLOOD ORDERABLES Final Result [facility] HISTORICAL RESULTS * CARDIOLOGY REPORT (09/24/2014 12:00 AM CDT) Anatomical Region Laterality Modality Other Narrative 09/24/2014 12:00 AM CDT Ordered by an unspecified provider. us Historical Provider [facility] KIMMY DUBON Final Result * MRI Brain W WO Contrast (09/24/2014 12:00 AM CDT) Anatomical Region Laterality Modality Head and Neck N/A Magnetic Resonan ce 09/24/2014 Impressions 09/24/2014 7:27 PM CDT ?? 1. ??Large chronic left MCA infarction with associated Wallerian degeneration. ?? Small contained foci of restricted diffusion are favored to be secondary to chronic blood degradation products and/or laminar necrosis rather than small intervening acute infarctions within residually maintained cortex. ?? 2. ??No evidence for acute ischemia elsewhere within the brain. 3. ??Left craniotomy with small subdural hygroma or chronic hematoma with postoperative pachymeningeal enhancement. 4. ??Mild paranasal sinus mucosal disease. THIS IS AN ELECTRONICALLY VERIFIED REPORT 09/24/2014 7:23 PM: ??Anselmo Vela D.O. Anselmo Vela D.O. :as 07:23 PM 07:23 PM [facility] [EOD] Narrative 09/24/2014 7:27 PM CDT EXAMINATION: ??MRI brain with and without contrast. HISTORY: ??CVA. History of craniotomy. TECHNIQUE: ??Multiplanar, multipulse sequence imaging of the brain was performed prior to and following the administration of 15 mL of Multihance via the left antecubital vein without complication. COMPARISON: ??Noncontrasted head CT performed 09/24/2014. FINDINGS: There is a large chronic infarction within the left cerebral hemisphere corresponding with the middle cerebral artery territory with resultant encephalomalacia and gliosis. ??There is involvement of portions of the left basal ganglia and T2 signal extends into an atrophic left cerebral peduncle along the expected corticospinal tract. ??T2 signal extends along the left pyramids to the level of the medulla compatible with Wallerian degeneration. There are some intervening regions of restricted diffusion observed within the infarction but this is favored to be secondary to some chronic blood degradation products and/or laminar necrosis rather than small intervening acute infarctions within residually maintained cortex. There is no cytotoxic edema elsewhere within the brain to suggest an acute infarction. ??Major vascular flow voids at the skull base are present. ??The left middle cerebral artery slightly diminutive in caliber. There is no mass, mass effect or midline shift. ??Ex vacuo dilation of the left lateral ventricle is noted. ??There is no hydrocephalus. ??Midline structures are normal. ??Following the administration of contrast, no abnormal parenchymal enhancement is identified. There is a left hemisphere craniotomy with small underlying subdural collection measuring 8 mm with an associated thin pachymeningeal enhancement which is likely related to prior surgery and associated subdural hygroma or chronic hematoma. There are no orbital abnormalities. ??Mild mucosal thickening is present within the maxillary sinuses and mastoid air cells. ??No concerning marrow replacement process is identified. Procedure Note Provider, MD Mirna - 08/15/2020 EXAMINATION: MRI brain with and without contrast. HISTORY: CVA. History of craniotomy. TECHNIQUE: Multiplanar, multipulse sequence imaging of the brain was performed prior to and following the administration of 15 mL of Multihancevia the left antecubital vein without complication. COMPARISON: Noncontrasted head CT performed 09/24/2014. FINDINGS: There is a large chronic infarction within the left cerebral hemisphere corresponding with the middle cerebral artery territory with resultant encephalomalacia and gliosis. There is involvement of portionsof the left basal ganglia and T2 signal extends into an atrophic leftcerebral peduncle along the expected corticospinal tract. T2 signal extends alongthe left pyramids to the level of the medulla compatible with Wallerian degeneration. There are some intervening regions of restricted diffusion observed withinthe infarction but this is favored to be secondary to some chronic blood degradation products and/or laminar necrosis rather than small intervening acute infarctions within residually maintained cortex. There is no cytotoxic edema elsewhere within the brain to suggest an acute infarction. Major vascular flow voids at the skull base are present. The left middle cerebral artery slightly diminutive in caliber. There is no mass, mass effect or midline shift. Ex vacuo dilation of theleft lateral ventricle is noted. There is no hydrocephalus. Midlinestructures are normal. Following the administration of contrast, no abnormalparenchymal enhancement is identified. There is a left hemisphere craniotomy with small underlying subdural collection measuring 8 mm with an associated thin pachymeningealenhancement which is likely related to prior surgery and associated subdural hygromaor chronic hematoma. There are no orbital abnormalities. Mild mucosal thickening is presentwithin the maxillary sinuses and mastoid air cells. No concerning marrowreplacement process is identified. IMPRESSION: 1. Large chronic left MCA infarction with associated Walleriandegeneration. Small contained foci of restricted diffusion are favored to be secondaryto chronic blood degradation products and/or laminar necrosis rather thansmall intervening acute infarctions within residually maintained cortex. 2. No evidence for acute ischemia elsewhere within the brain. 3. Left craniotomy with small subdural hygroma or chronic hematoma with postoperative pachymeningeal enhancement. 4. Mild paranasal sinus mucosal disease. THIS IS AN ELECTRONICALLY VERIFIED REPORT 09/24/2014 7:23 PM: Anselmo Vela D.O. Anselmo Vela D.O. :as 07:23 PM 07:23 PM [facility] [EOD] us Alli Paula DO IMG MRI PROCEDURES Final Re sult * XR Chest 1 View (09/24/2014 12:00 AM CDT) Anatomical Region Laterality Modality Body, Chest N/A Radiographic Tawanna ging 09/24/2014 Impressions 09/24/2014 2:12 PM CDT No evidence of acute pulmonary disease. No infiltrates or consolidation. THIS IS AN ELECTRONICALLY VERIFIED REPORT 09/24/2014 2:09 PM: ??Diego Hagen M.D. Diego Hagen M.D. NC:nc 02:09 PM 02:09 PM [facility] [EOD] Narrative 09/24/2014 2:12 PM CDT EXAMINATION: Portable chest HISTORY: Stroke and possible altered consciousness. COMPARISON: 01/03/14 FINDINGS: Heart is normal in size. ??Calcified granuloma are present. Cardiomediastinal silhouette is normal. ??No radiographic evidence of an infiltrate or consolidation. No evidence of ??an effusion or concerning nodules. The bony thorax is intact. Procedure Note Provider, MD Mirna - 08/15/2020 EXAMINATION: Portable chest HISTORY: Stroke and possible altered consciousness. COMPARISON: 01/03/14 FINDINGS: Heart is normal in size. Calcified granuloma are present. Cardiomediastinal silhouette is normal. No radiographic evidence of an infiltrate or consolidation. No evidence of an effusion or concerning nodules. The bony thorax is intact. IMPRESSION: No evidence of acute pulmonary disease. No infiltrates or consolidation. THIS IS AN ELECTRONICALLY VERIFIED REPORT 09/24/2014 2:09 PM: Diego Hagen M.D. Diego Hagen M.D. NC:nc 02:09 PM 02:09 PM [facility] [EOD] us Alli Paula DO IMG XR PROCEDURES Final Res ult * CT Stroke Head WO Contrast (09/24/2014 12:00 AM CDT) Anatomical Region Laterality Modality Head N/A Computed Tomogra phy 09/24/2014 Impressions 09/24/2014 1:38 PM CDT No acute hemorrhage Large old left MCA territory infarct with associated encephalomalacia and ex vacuo dilatation. Postsurgical changes from prior left frontoparietal craniotomy. THIS IS AN ELECTRONICALLY VERIFIED REPORT 09/24/2014 1:35 PM: ??Uziel Milton M.D. Uziel Milton M.D. JA:mariia 01:35 PM 01:35 PM [facility] [EOD] Narrative 09/24/2014 1:38 PM CDT PROCEDURE: CT HEAD WITHOUT CONTRAST. HISTORY: Acute stroke . ??Altered consciousness. COMPARISON: CT dated January 03, 2014 TECHNIQUE: Multiple contiguous axial 5mm sections were obtained from the skull base to the vertex without intravenous contrast. FINDINGS: ?? The cortical-sulcal pattern is unremarkable. There is a large old infarct within the left MCA territory with resultant encephalomalacia and ex vacuo dilatation of the left lateral ventricle. The remaining ventricles, subarachnoid spaces, and basal cisterns are normal in size and appearance. ?? There is no area of acute infarction or hemorrhage identified. ??No abnormal intra- or extra-axial fluid collection is appreciated, and there is no midline shift. ??The posterior fossa is unremarkable. No significant osseous abnormalities. ??There is a old left frontoparietal craniotomy The orbits, para-nasal sinuses and ??mastoid air cells are normal. Procedure Note Provider, MD Mirna - 08/15/2020 PROCEDURE: CT HEAD WITHOUT CONTRAST. HISTORY: Acute stroke . Altered consciousness. COMPARISON: CT dated January 03, 2014 TECHNIQUE: Multiple contiguous axial 5mm sections were obtained from theskull base to the vertex without intravenous contrast. FINDINGS: The cortical-sulcal pattern is unremarkable. There is a large old infarct within the left MCA territory with resultant encephalomalacia and ex vacuo dilatation of the left lateral ventricle. The remaining ventricles, subarachnoid spaces, and basal cisterns are normal in size and appearance. There is no area of acute infarction or hemorrhage identified. Noabnormal intra- or extra-axial fluid collection is appreciated, and there is nomidline shift. The posterior fossa is unremarkable. No significant osseous abnormalities. There is a old left frontoparietal craniotomy The orbits, para-nasal sinuses and mastoid air cells arenormal. IMPRESSION: No acute hemorrhage Large old left MCA territory infarct with associated encephalomalacia andex vacuo dilatation. Postsurgical changes from prior left frontoparietal craniotomy. THIS IS AN ELECTRONICALLY VERIFIED REPORT 09/24/2014 1:35 PM: Uziel Milton M.D. Uziel Milton M.D. 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) Dysthymic disorder Pressure ulcer of buttock Pressure ulcer, buttock Essential hypertension Unspecified essential hypertension Hypertrophy of prostate without urinary obstruction and other lower urinary tract symptoms (LUTS) Other and unspecified hyperlipidemia Esophageal reflux Obesity Obesity, unspecified Body mass index 28.0-28.9, adult Body Mass Index 28.0-28.9, adult Aphasia, late effect of cerebrovascular disease Pressure ulcer, stage 2 (HCC) documented in this encounter Additional Health Concerns 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 difficile Comment:Germ watcher auto flagging 01/15/2014 01/15/2014 documented as of this encounter
--- OUTSIDE RECORDS SUMMARY | 2024-04-03 17:35 | XMS_ITS | Encounter Summary ---
Author Organization 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; Other specified disorders of brain; Nonspecific (abnormal) findings on radiological and other examination of lung field Social History Tobacco Use Types Packs/Day Years Used Date Smoking Tobacco: Never Assessed Sex and Gender Information Value Date Recorded Sex Assigned at Not on file 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 DANIEL MODI M.D. FINAL REPORT The radiology attending physician has personally reviewed this study, and has reviewed and/or edited this written report and agrees with it. ACC# ??Date Time ??Exam [id number] Dec 29, 2013 15:53:[id number] Angio Head w/o & w cont [id number] Dec 29, 2013 15:53:[id number] Angio Neck EXAMINATION: ? CT (CTA) angiogram of the head and neck with contrast. History: Left MCA stroke, evaluate for left ICA thrombus versus stenosis. Technique: Computed tomography of the head was performed without contrast according to standard protocol. ??Then, computed tomographic angiography of the head and neck was obtained after the uneventful intravenous administration of nonionic contrast according to the standard CTA protocol. ??Data was transferred to a 3D computer workstation and additional vascular 3D images were generated. Intravenous contrast used: Optiray-350 97 mL. Comparisons: CT head from October 27, 2013 Findings: On the noncontrast and contrastviews of the brain and soft tissues of the neck preparatory to the angiogram, left craniectomy changes are again seen. A large distribution left MCA infarct demonstrates interval expected encephalomalacia with persistent overlying the scalp fluid collection. Ex vacuo ventricular dilatation of the left lateral ventricle is now noted. No hemorrhage is identified. Polypoid mucosal thickening is present in the paranasal sinuses. Mastoid air cells are clear in the orbits are unremarkable. Angiographic findings: Neck: Atheromatous calcification and mild plaque involves the origin of the proximal great vessels which demonstrate normal three-vessel branching. There is no evidence of hemodynamically significant stenosis of the proximal great arteries, either common carotid arteries or proximal vertebral arteries. Mild atheromatous plaque involves both superior common carotid arteries. There is moderate to severe atheromatous plaque involving the proximal left ICA and moderate plaque involving the proximal right ICA. Using 3-D rendering and calculated percentages, the degree of stenosis of the left ICA was 51% and of the right ICA 5%. However, both of these appear to underestimate the degree of stenosis and there is a diminutive caliber of the left mid and superior cervical ICA, suggestive of chronic stenosis. Both cervical vertebral arteries are patent throughout. Brain: Atheromatous calcifications involve both intracranial ICAs without evidence of hemodynamically significant stenosis. Flow within the left MCA is attenuated with normal caliber right MCA and bilateral ACAs. No evidence of anterior circulation aneurysm is identified. The left PICA is prominent with relative diminutive left V4 segment. Basilar artery is well maintained throughout and both physical security manager are patent. The posterior communicating arteries are hypoplastic bilaterally. There is no evidence of a posterior circulation aneurysm. Dural venous structures are grossly patent. 3-D renderings using a computer workstation are also normal. The visualized upper lungs are emphysematous and a 7 mm lateral right upper lobe noncalcified pulmonary nodule is noted on image 126 of series 5 with an additional 4 mm noncalcified anterior right upper lobe nodule on image 4 of the same series. Apical scarring is present as well. ??There is no abnormal intracranial enhancement or evidence of new infarct. No abnormal asymmetry or enhancement is seen along the aerodigestive tract. No cervical adenopathy is identified. Multilevel cervical spondylosis is noted. No aggressive bone lesions are identified. IMPRESSION: ?? 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 Calculated stenosis measures 51% of the proximal left ICA, although the actual degree of stenosis appears greater than this. No intraluminal thrombus is identified. Left MCA encephalomalacia with associated attenuated flow in the left MCA. No other intracranial stenosis is identified. 4 mm and 7 mm noncalcified right upper lobe pulmonary nodules. Recommend dedicated chest CT to fully evaluate the lungs and establish surveillance guidelines. Emphysema. Requested By: Dictated By: ?? DANIEL MODI M.D. ??on Dec ??2013 ??5:21P This document has been electronically signed by: MYA GANT M.D. on Dec ??2013 ??5:21P [id number] Procedure Note Provider, MD Mirna - 07/28/2016 MYA GANT M.D. DANIEL MODI M.D. FINAL REPORT The radiology attending physician has personally reviewed this study, and has reviewed and/or edited this written report and agrees with it. ACC# Date Time Exam [id number] Dec 29, 2013 15:53:[id number] Angio Head w/o & w cont [id number] Dec 29, 2013 15:53:[id number] Angio Neck EXAMINATION: CT (CTA) angiogram of the head and neck with contrast. History: Left MCA stroke, evaluate for left ICA thrombus versusstenosis. Technique: Computed tomography of the head was performed without contrast according to standard protocol. Then, computed tomographic angiography of the head and neck was obtained after the uneventful intravenous administration of nonionic contrast according to the standard CTA protocol. Data was transferred to a 3D computer workstation and additional vascular 3D images were generated. Intravenous contrast used: Optiray-350 97 mL. Comparisons: CT head from October 27, 2013 Findings: On the noncontrast and contrastviews of the brain and soft tissues of the neck preparatory to the angiogram, left craniectomy changes are again seen. A large distribution left MCA infarct demonstrates interval expected encephalomalacia with persistent overlying the scalp fluid collection. Ex vacuo ventricular dilatation of the left lateral ventricle is now noted. No hemorrhage is identified. Polypoid mucosal thickening is present in the paranasal sinuses. Mastoid air cells are clear in the orbits are unremarkable. Angiographic findings: Neck: Atheromatous calcification and mild plaque involves the origin of the proximal great vessels which demonstrate normal three-vessel branching. There is no evidence of hemodynamically significant stenosis of the proximal great arteries, either common carotid arteries or proximal vertebral arteries. Mild atheromatous plaque involves both superior common carotid arteries. There is moderate to severe atheromatous plaque involving the proximal left ICA and moderate plaque involving the proximal right ICA. Using 3-D rendering and calculated percentages, the degree of stenosis of the left ICA was 51% and of the right ICA 5%. However, both of these appear to underestimate the degree of stenosis and there is a diminutive caliber of the left mid and superior cervical ICA, suggestive of chronic stenosis. Both cervical vertebral arteries are patent throughout. Brain: Atheromatous calcifications involve both intracranial ICAs without evidence of hemodynamically significant stenosis. Flow within the left MCA is attenuated with normal caliber right MCA and bilateral ACAs. No evidence of anterior circulation aneurysm is identified. The left PICA is prominent with relative diminutive left V4 segment. Basilar artery is well maintained throughout and both physical security manager are patent. The posterior communicating arteries are hypoplastic bilaterally. There is no evidence of a posterior circulation aneurysm. Dural venous structures are grossly patent. 3-D renderings using a computer workstation are also normal. The visualized upper lungs are emphysematous and a 7 mm lateral right upper lobe noncalcified pulmonary nodule is noted on image 126 of series 5 with an additional 4 mm noncalcified anterior right upper lobe nodule on image 4 of the same series. Apical scarring is present as well. There is no abnormal intracranial enhancement or evidence of new infarct. No abnormal asymmetry or enhancement is seen along the aerodigestive tract. No cervical adenopathy is identified. Multilevel cervical spondylosis is noted. No aggressive bone lesions are identified. 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 Calculated stenosis measures 51% of the proximal left ICA, although the actual degree of stenosis appears greater than this. No intraluminal thrombus is identified. Left MCA encephalomalacia with associated attenuated flow in the left MCA. No other intracranial stenosis is identified. 4 mm and 7 mm noncalcified right upper lobe pulmonary nodules. Recommend dedicated chest CT to fully evaluate the lungs and establish surveillance guidelines. Emphysema. Requested By: Dictated By: DANIEL MODI M.D. on Dec 29 2013 5:21P This document has been electronically signed by: MYA GANT M.D. on Dec 29 2013 5:21P [id number] Historical Provider MD ESTRADA CT PROCEDURES Final R esult * CT Angiogram Neck W WO Contrast (12/29/2013 3:53 PM CDT) Anatomical Region Laterality Modality Head and Neck N/A Computed Tomogra phy 12/29/2013 3:53 PM CDT Narrative 12/29/2013 5:22 PM CDT MYA GANT M.D. DANIEL MODI M.D. FINAL REPORT The radiology attending physician has personally reviewed this study, and has reviewed and/or edited this written report and agrees with it. ACC# ??Date Time ??Exam [id number] Dec 29, 2013 15:53:[id number] Angio Head w/o & w cont [id number] Dec 29, 2013 15:53:[id number] Angio Neck EXAMINATION: ? CT (CTA) angiogram of the head and neck with contrast. History: Left MCA stroke, evaluate for left ICA thrombus versus stenosis. Technique: Computed tomography of the head was performed without contrast according to standard protocol. ??Then, computed tomographic angiography of the head and neck was obtained after the uneventful intravenous administration of nonionic contrast according to the standard CTA protocol. ??Data was transferred to a 3D computer workstation and additional vascular 3D images were generated. Intravenous contrast used: Optiray-350 97 mL. Comparisons: CT head from October 27, 2013 Findings: On the noncontrast and contrastviews of the brain and soft tissues of the neck preparatory to the angiogram, left craniectomy changes are again seen. A large distribution left MCA infarct demonstrates interval expected encephalomalacia with persistent overlying the scalp fluid collection. Ex vacuo ventricular dilatation of the left lateral ventricle is now noted. No hemorrhage is identified. Polypoid mucosal thickening is present in the paranasal sinuses. Mastoid air cells are clear in the orbits are unremarkable. Angiographic findings: Neck: Atheromatous calcification and mild plaque involves the origin of the proximal great vessels which demonstrate normal three-vessel branching. There is no evidence of hemodynamically significant stenosis of the proximal great arteries, either common carotid arteries or proximal vertebral arteries. Mild atheromatous plaque involves both superior common carotid arteries. There is moderate to severe atheromatous plaque involving the proximal left ICA and moderate plaque involving the proximal right ICA. Using 3-D rendering and calculated percentages, the degree of stenosis of the left ICA was 51% and of the right ICA 5%. However, both of these appear to underestimate the degree of stenosis and there is a diminutive caliber of the left mid and superior cervical ICA, suggestive of chronic stenosis. Both cervical vertebral arteries are patent throughout. Brain: Atheromatous calcifications involve both intracranial ICAs without evidence of hemodynamically significant stenosis. Flow within the left MCA is attenuated with normal caliber right MCA and bilateral ACAs. No evidence of anterior circulation aneurysm is identified. The left PICA is prominent with relative diminutive left V4 segment. Basilar artery is well maintained throughout and both physical security manager are patent. The posterior communicating arteries are hypoplastic bilaterally. There is no evidence of a posterior circulation aneurysm. Dural venous structures are grossly patent. 3-D renderings using a computer workstation are also normal. The visualized upper lungs are emphysematous and a 7 mm lateral right upper lobe noncalcified pulmonary nodule is noted on image 126 of series 5 with an additional 4 mm noncalcified anterior right upper lobe nodule on image 4 of the same series. Apical scarring is present as well. ??There is no abnormal intracranial enhancement or evidence of new infarct. No abnormal asymmetry or enhancement is seen along the aerodigestive tract. No cervical adenopathy is identified. Multilevel cervical spondylosis is noted. No aggressive bone lesions are identified. IMPRESSION: ?? 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 Calculated stenosis measures 51% of the proximal left ICA, although the actual degree of stenosis appears greater than this. No intraluminal thrombus is identified. Left MCA encephalomalacia with associated attenuated flow in the left MCA. No other intracranial stenosis is identified. 4 mm and 7 mm noncalcified right upper lobe pulmonary nodules. Recommend dedicated chest CT to fully evaluate the lungs and establish surveillance guidelines. Emphysema. Requested By: SANTI MARES M.D. Dictated By: ?? DANIEL MODI M.D. ??on Dec ??2013 ??5:21P This document has been electronically signed by: MYA GANT M.D. on Dec ??2013 ??5:21P [id number] Procedure Note Provider, MD Mirna - 07/28/2016 MYA GANT M.D. DANIEL MODI M.D. FINAL REPORT The radiology attending physician has personally reviewed this study, and has reviewed and/or edited this written report and agrees with it. ACC# Date Time Exam [id number] Dec 29, 2013 15:53:[id number] Angio Head w/o & w cont [id number] Dec 29, 2013 15:53:[id number] Angio Neck EXAMINATION: CT (CTA) angiogram of the head and neck with contrast. History: Left MCA stroke, evaluate for left ICA thrombus versusstenosis. Technique: Computed tomography of the head was performed without contrast according to standard protocol. Then, computed tomographic angiography of the head and neck was obtained after the uneventful intravenous administration of nonionic contrast according to the standard CTA protocol. Data was transferred to a 3D computer workstation and additional vascular 3D images were generated. Intravenous contrast used: Optiray-350 97 mL. Comparisons: CT head from October 27, 2013 Findings: On the noncontrast and contrastviews of the brain and soft tissues of the neck preparatory to the angiogram, left craniectomy changes are again seen. A large distribution left MCA infarct demonstrates interval expected encephalomalacia with persistent overlying the scalp fluid collection. Ex vacuo ventricular dilatation of the left lateral ventricle is now noted. No hemorrhage is identified. Polypoid mucosal thickening is present in the paranasal sinuses. Mastoid air cells are clear in the orbits are unremarkable. Angiographic findings: Neck: Atheromatous calcification and mild plaque involves the origin of the proximal great vessels which demonstrate normal three-vessel branching. There is no evidence of hemodynamically significant stenosis of the proximal great arteries, either common carotid arteries or proximal vertebral arteries. Mild atheromatous plaque involves both superior common carotid arteries. There is moderate to severe atheromatous plaque involving the proximal left ICA and moderate plaque involving the proximal right ICA. Using 3-D rendering and calculated percentages, the degree of stenosis of the left ICA was 51% and of the right ICA 5%. However, both of these appear to underestimate the degree of stenosis and there is a diminutive caliber of the left mid and superior cervical ICA, suggestive of chronic stenosis. Both cervical vertebral arteries are patent throughout. Brain: Atheromatous calcifications involve both intracranial ICAs without evidence of hemodynamically significant stenosis. Flow within the left MCA is attenuated with normal caliber right MCA and bilateral ACAs. No evidence of anterior circulation aneurysm is identified. The left PICA is prominent with relative diminutive left V4 segment. Basilar artery is well maintained throughout and both physical security manager are patent. The posterior communicating arteries are hypoplastic bilaterally. There is no evidence of a posterior circulation aneurysm. Dural venous structures are grossly patent. 3-D renderings using a computer workstation are also normal. The visualized upper lungs are emphysematous and a 7 mm lateral right upper lobe noncalcified pulmonary nodule is noted on image 126 of series 5 with an additional 4 mm noncalcified anterior right upper lobe nodule on image 4 of the same series. Apical scarring is present as well. There is no abnormal intracranial enhancement or evidence of new infarct. No abnormal asymmetry or enhancement is seen along the aerodigestive tract. No cervical adenopathy is identified. Multilevel cervical spondylosis is noted. No aggressive bone lesions are identified. 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 Calculated stenosis measures 51% of the proximal left ICA, although the actual degree of stenosis appears greater than this. No intraluminal thrombus is identified. Left MCA encephalomalacia with associated attenuated flow in the left MCA. No other intracranial stenosis is identified. 4 mm and 7 mm noncalcified right upper lobe pulmonary nodules. Recommend dedicated chest CT to fully evaluate the lungs and establish surveillance guidelines. Emphysema. Requested By: SANTI MARES M.D. Dictated By: DANIEL MODI M.D. on Dec 29 2013 5:21P This document has been electronically signed by: MYA GANT M.D. 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
--- OUTSIDE RECORDS SUMMARY | 2024-04-03 17:35 | XMS_ITS | Encounter Summary ---
Author Organization [facility] Healthcare Address [address] [place] [address] Care Team Providers Care [employer] Name Role Phone Unavailable Primary Care Provider Unavailabl e Encounter Details Date Type Department Care Team (Latest Contact Info) Description 01/03/2014 9:49 AM CDT - 01/03/2014 12:40 PM CDT Hospital Encounter [facility] ER Other alteration of consciousness; Other malaise and fatigue; Essential hypertension; Other depressive disorder; Encounter for long-term (current) use of other medications; Other postprocedural states; History of other diseases of the circulatory system, not elsewhere classified Social History Tobacco Use Types Packs/Day Years Used Date Smoking Tobacco: Never Assessed Sex and Gender Information Value Date Recorded Sex Assigned at Not on file 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 Gender Identity Not on file Sexual Orientation Not on file documented as of this encounter Last Filed Vital Signs Vital Sign Reading Time Taken Comments Blood Pressure 169/60 01/03/2014 9:50 AM CDT Pulse 79 01/03/2014 9:50 AM CDT Temperature 36.8 ??C (98.2 ??F) 01/03/2014 9:50 AM CD T Respiratory Rate - - Oxygen Saturation 92% 01/03/2014 9:50 AM CDT Inhaled Oxygen Concentration - - Weight 83.5 kg (184 lb) 01/03/2014 9:50 AM CDT Height 175.3 cm (5' 9 ) 01/03/2014 9:50 AM CDT Body Mass Index 27.17 01/03/2014 9:50 AM CDT documented in this encounter Plan of Treatment Not on file documented as of this encounter Procedures Procedure Name Priority Date/Time Associated Diagnosis Comments MICROBIOLOGY SPECIMEN REPORT (CONVERTED) Routine 01/03/2014 11:26 AM CDT MICROBIOLOGY SPECIMEN REPORT (CONVERTED) Routine 01/03/2014 10:49 AM CDT TNI WITH LIPID PANEL Routine 01/03/2014 10:49 AM CDT CBC WITH AUTO DIFFERENTIAL Routine 01/03/2014 10:49 AM CDT ETHANOL Routine 01/03/2014 10:49 AM CDT COMPREHENSIVE METABOLIC PANEL Routine 01/03/2014 10:49 AM CDT XR CHEST 1 VIEW Routine 01/03/2014 12:[address] HEAD WO CONTRAST Routine 01/03/2014 1 2:00 AM CDT documented in this encounter Results * Microbiology Specimen Report (Converted) (01/03/2014 11:26 AM CDT) 01/03/2014 11:2 6 AM CDT 01/03/2014 11:32 AM CDT [facility] HISTORICAL RESULTS - 01/03/2014 11:26 AM CDT Microbiology Specimen Report (Converted) SPECIMEN [id number] ?? COLLECTED: 2014-01-03 11:26:00 [id number] ?? REQ#: [id number] REQUESTING DR: Dharmesh Crandall ?? SOURCE: BLOOD ?? SP DESC: COMMENT: LAC BC Draw ? LARM BC Draw ?? --- PROCEDURE --- ?--- RESULT --- ?? CULTURE BLOOD ADULT (SET OF 2) ??(Final) ??- ??Performed at [facility] ?* NO GROWTH DAY 5 - [facility] ? [address] ? [place] [address] ? Tate Novak MD Procedure Note 06/20/2018 Microbiology Specimen Report (Converted) SPECIMEN [id number] COLLECTED: 2014-01-03 11:26:00 [id number] REQ#:[id number] REQUESTING DR: Dharmesh Crandall SOURCE: BLOOD SP DESC: COMMENT: LAC BC Draw LARM BC Draw --- PROCEDURE --- --- RESULT --- CULTURE BLOOD ADULT (SET OF 2) (Final) - Performed at [facility] * NO GROWTH DAY 5 - [facility] [address] [place] [address] Tate Novak MD us Historical Provider LAB BLOOD ORDERABLES Myrna l Result [facility] [place]ISTORICAL RES[place] * Microbiology Specimen Report (Converted) (01/03/2014 10:49 AM CDT) 01/03/2014 10:4 9 AM CDT 01/03/2014 10:52 AM CDT Narrative [facility] [place] HISTORICAL RESULTS - 01/03/2014 10:49 AM CDT Microbiology Specimen Report (Converted) SPECIMEN [id number] ?? COLLECTED: 2014-01-03 10:49:00 [id number] ?? REQ#: [id number] REQUESTING DR: Dharmesh Crandall ?? SOURCE: BLOOD ?? SP DESC: COMMENT: LAC BC Draw ?? --- PROCEDURE --- ?--- RESULT --- ?? CULTURE BLOOD ADULT (SET OF 2) ??(Final) ??- ??Performed at [facility] ?* NO GROWTH DAY 5 - [facility] ? [address] [facility] ? [place] [address] ? Tate Novak MD Procedure Note 06/20/2018 Microbiology Specimen Report (Converted) SPECIMEN [id number] COLLECTED: 2014-01-03 10:49:00 [id number] REQ#:[id number] REQUESTING DR: Dharmesh Crandall SOURCE: BLOOD SP DESC: COMMENT: LAC BC Draw --- PROCEDURE --- --- RESULT --- CULTURE BLOOD ADULT (SET OF 2) (Final) - Performed at [facility] * NO GROWTH DAY 5 - [facility] [address] [place] [address] Tate Novak MD Historical Provider LAB BLOOD ORDERABLES Myrna funes Result [facility] [place] HISTORICAL RESULTS * (ABNORMAL) TNI with LIPID PANEL (01/03/2014 10:49 AM CDT) [facility] Troponin I < 0.300 0.000 - 0.300 ng/mL Comment: Reference using [place] Chemiluminescence ? Negative: Repeat in 4-6 hours as indicated. Triglycerides 120 0 - 199 mg/dL Comment:12 hr pc highly luis mmended for Triglyceride Cholesterol 108 0 - 199 mg/dL Comment: Borderline: ??200-239 High Risk: ?? >239 HDL Cholesterol 31(L) 40 - 60 mg/dL Comment: Major Risk ?< 40 mg/dL Moderate Risk ?40-60 mg/dL Negative Risk ?? > 60 mg/dL LDL Cholesterol, Calc 53 0 - 130 mg/dL Comment:High Risk > 159 mg/d L Cholesterol/HDL Ratio 3.5 Comment: Cholesterol / HDL Ratio 3.5:1 or less is desirable. Cholesterol / HDL Ratio greater than 5:1 is considered higher risk for developing heart disease. 01/03/2014 10:4 9 AM CDT 01/03/2014 10:52 AM CDT Narrative [facility] [place] HISTORICAL RESULTS - 01/03/2014 11:23 AM CDT Comment Glucose, blood, POC ?? LAC BC Draw ?? us Historical Provider LAB BLOOD ORDERABLES Myrna l Result Performing Organization Address City/[facility]/ZIP Co de Phone Number [facility] [place] HISTORICAL RESULTS * Ethanol (01/03/2014 10:49 AM CDT) Pathologist [facility] Ethyl Alcohol < 10 mg/dL Comment:% = mg/dL x .001 01/03/2014 10:4 9 AM CDT 01/03/2014 10:52 AM CDT Narrative [facility] [place] HISTORICAL RESULTS - 01/03/2014 11:23 AM CDT Comment Glucose, blood, POC ?? LAC BC Draw ?? Historical Provider LAB BLOOD ORDERABLES Myrna l Result Performing Organization Address [facility] Co de Phone Number [facility] [place] HISTORICAL RESULTS * (ABNORMAL) Comprehensive metabolic panel (01/03/2014 10:49 AM CDT) [facility] Sodium 143 135 - 145 mmol/L Potassium 4.3 3.3 - 5.1 mmol/L Chloride 104 96 - 108 mmol/L Carbon Dioxide 31 22 - 32 mmol/L Anion Gap 8 7 - 16 Glucose 98 70 - 110 mg/dL BUN 15 6 - 20 mg/dL Creatinine 0.8 0.5 - 1.3 mg/dL [...] Kidney failure or on dialysis @ Calcium 10.0 8.6 - 10.0 mg/dL Total Protein 8.0 6.4 - 8.3 g/dL Albumin 4.3 3.5 - 5.2 g/dL Globulin 3.7(H) 2.3 - 3.5 gm/dL Albumin/Globulin Ratio 1.2 1.1 - 1.8 Total Bilirubin 0.4 0.0 - 1.2 mg/dL AST 14 0 - 40 U/L ALT 12 0 - 41 U/L Alkaline Phosphatase 85 40 - 129 U/L 01/03/2014 10:4 9 AM T 01/03/2014 10:52 AM CDT Narrative [id number] HISTORICAL RESULTS - 01/03/2014 11:23 AM CDT Comment Glucose, blood, POC ?? LAC BC Draw ?? us Historical Provider LAB BLOOD ORDERABLES Myrna shantel Result [facility] [place] HISTORICAL RESULTS * (ABNORMAL) CBC with auto differential (01/03/2014 10:49 AM CDT) WBC 9.3 4.6 - 10.2 x10 3/ul 01/03/2014 10:57 AM CDT [facility] [place] HISTORICAL RESULTS RBC 3.75(L) 4.11 - 5.71 x10 6/ul 01/03/2014 10:57 AM CDT [facility] [place] HISTORICAL RESULTS Hemoglobin 12.8(L) 13.0 - 17.0 g/dl 01/03/2014 10:57 AM T [id number] HISTORICAL RESULTS Hct 37.3(L) 38.2 - 48.5 % 01/03/2014 10:57 AM T [facility] [place] HISTORICAL RESULTS MCV 99.5(H) 80.0 - 97.0 fl 01/03/2014 10:57 AM CDT [facility] [place] HISTORICAL RESULTS MCH 34.1(H) 27.0 - 31.2 pg 01/03/2014 10:57 AM T [id number] HISTORICAL RESULTS MCHC 34.3 31.8 - 35.4 g/dl 01/03/2014 10:57 AM T [facility] [place] HISTORICAL RESULTS RDW 12.1 11.6 - 14.8 % 01/03/2014 10:57 AM T [facility] [place] HISTORICAL RESULTS Plt Count 308 124 - 400 x10 3/ul 01/03/2014 10:57 AM T [facility] [place] HISTORICAL RESULTS MPV 8.9 7.4 - 10.4 fl 01/03/2014 10:57 AM T [id number] HISTORICAL RESULTS Differential Method AUTOMATED DIFF --------- -- 01/03/2014 10:57 AM T [facility] [place] HISTORICAL RESULTS Neut % 80.2 37.0 - 85.0 % 01/03/2014 10:57 AM T [id number] HISTORICAL RESULTS Immature Gran % 0.3 0.0 - 3.0 % 01/03/2014 10:57 AM T [facility] [place] HISTORICAL RESULTS Lymph % 10.4 5.0 - 45.0 % 01/03/2014 10:57 AM CDT [facility] [place] HISTORICAL RESULTS [place] % 5.4 3.0 - 15.0 % 01/03/2014 10:57 AM T [facility] [place] HISTORICAL RESULTS Eos % 3.2 0.0 - 7.0 % 01/03/2014 10:57 AM CDT [facility] [place] HISTORICAL RESULTS Baso % 0.5 0.0 - 2.0 % 01/03/2014 10:57 AM T [facility] [place] HISTORICAL RESULTS ABSOLUTE COUNTS ABSOLUTE COUNTS --------- -- 01/03/2014 10:57 AM T [facility] [place] HISTORICAL RESULTS Absolute Neuts (auto) 7.4 1.7 - 8.7 x10 3/ul 01/03/2014 10:57 AM T [facility] [place] HISTORICAL RESULTS Immature Gran # 0.0 0.0 - 0.3 x10 3/ul 01/03/2014 10:57 AM T [facility] [place] HISTORICAL RESULTS Absolute Lymphs (auto) 1.0 0.2 - 4.6 x10 3/ul 01/03/2014 10:57 AM CDT [facility] [place] HISTORICAL RESULTS Absolute Monos (auto) 0.5 0.1 - 1.5 x10 3/ul 01/03/2014 10:57 AM T [facility] [place] HISTORICAL RESULTS Absolute Eos (auto) 0.3 0.0 - 0.7 x10 3/ul 01/03/2014 10:57 AM T [facility] [place] HISTORICAL RESULTS Absolute Basos (auto) 0.1 0.0 - 0.2 x10 3/ul 01/03/2014 10:57 AM T [facility] [place] HISTORICAL RESULTS 01/03/2014 10:4 9 AM CDT 01/03/2014 10:52 AM CDT Narrative [facility] [place] HISTORICAL RESULTS - 01/03/2014 10:57 AM CDT LAC BC Draw ?? us Historical Provider LAB BLOOD ORDERABLES Myrna l Result [facility] [place] HISTORICAL RESULTS * CT Head WO Contrast (01/03/2014 12:00 AM CDT) Anatomical Region Laterality Modality Head and Neck N/A Computed Tomogra phy 01/03/2014 Impressions 01/03/2014 11:32 AM CDT ?? 1. No CT evidence of an acute intracranial process. 2. ??Large area of encephalomalacia involving the left frontotemporoparietal lobes, consistent with prior infarction. 3. ??Post surgical changes of left craniectomy with duraplasty material in place. THIS IS AN ELECTRONICALLY VERIFIED REPORT 01/03/2014 11:28 AM: ??Mark Nickerson M.D. Mark Nickerson M.D. CN:madhav 11:28 AM 11:28 AM [facility] [EOD] Narrative 01/03/2014 11:32 AM CDT EXAMINATION: CT head without intravenous contrast HISTORY: Altered mental status, prior left MCA stroke TECHNIQUE: Axial computed tomographic images of the head were acquired without intravenous contrast. COMPARISON: ??10/19/2013 FINDINGS: There is a large area of encephalomalacia in the left frontal temporal parietal lobe, consistent with prior infarction. ??There are postsurgical changes of left craniectomy with duraplasty material in place. ??There is fluid overlying the duraplasty material, which likely related to postsurgical changes. ??There is ex vacuo dilatation of the left lateral ventricle. ??The right lateral ventricle is normal in size. No mass effect, midline shift, acute intracranial hemorrhage or extraaxial fluid collection is observed. ??There is no CT evidence of an acute territorial infarction seen. ?? The visualized portions of the orbits appear symmetric. ??There is no significant paranasal sinus or mastoid air cell disease. No acute displaced calvarial fracture is evident. Procedure Note Provider, MD Mirna - 08/15/2020 EXAMINATION: CT head without intravenous contrast HISTORY: Altered mental status, prior left MCA stroke TECHNIQUE: Axial computed tomographic images of the head were acquired without intravenous contrast. COMPARISON: 10/19/2013 FINDINGS: There is a large area of encephalomalacia in the left frontal temporal parietal lobe, consistent with prior infarction. There are postsurgical changes of left craniectomy with duraplasty material in place. There isfluid overlying the duraplasty material, which likely related to postsurgical changes. There is ex vacuo dilatation of the left lateral ventricle. The right lateral ventricle is normal in size. No mass effect, midline shift, acute intracranial hemorrhage or extraaxial fluid collection is observed. There is no CT evidence of an acuteterritorial infarction seen. The visualized portions of the orbits appear symmetric. There is no significant paranasal sinus or mastoid air cell disease. No acutedisplaced calvarial fracture is evident. IMPRESSION: 1. No CT evidence of an acute intracranial process. 2. Large area of encephalomalacia involving the leftfrontotemporoparietal lobes, consistent with prior infarction. 3. Post surgical changes of left craniectomy with duraplasty material in place. THIS IS AN ELECTRONICALLY VERIFIED REPORT 01/03/2014 11:28 AM: Mark Nickerson M.D. Mark Nickerson M.D. CN:madhav 11:28 AM 11:28 AM [facility] [EOD] us Historical Provider MD ESTRADA CT PROCEDURES Final R esult * XR Chest 1 View (01/03/2014 12:00 AM CDT) Anatomical Region Laterality Modality Body, Chest N/A Radiographic Tawanna ging 01/03/2014 Impressions 01/03/2014 11:21 AM CDT ??No acute cardiopulmonary process. THIS IS AN ELECTRONICALLY VERIFIED REPORT 01/03/2014 11:18 AM: ??Mark Nickerson M.D. Mark Nickerson M.D. CN:madhav 11:18 AM 11:18 AM [facility] [EOD] Narrative 01/03/2014 11:21 AM CDT EXAMINATION: ??Chest, one-view HISTORY: ??Altered mental status TECHNIQUE: ??Single AP view of the chest is obtained COMPARISON: ??10/19/2013 FINDINGS: There has been interval removal of the endotracheal tube. There is no focal consolidation, pneumothorax, or pleural effusion. ??The cardiac silhouette and mediastinal contours are within normal limits. Procedure Note Provider, Historical, - 08/15/2020 EXAMINATION: Chest, one-view HISTORY: Altered mental status TECHNIQUE: Single AP view of the chest is obtained COMPARISON: 10/19/2013 FINDINGS: There has been interval removal of the endotracheal tube. There is no focal consolidation, pneumothorax, or pleural effusion. The cardiac silhouette and mediastinal contours are within normal limits. IMPRESSION: No acute cardiopulmonary process. THIS IS AN ELECTRONICALLY VERIFIED REPORT 01/03/2014 11:18 AM: Mark Nickerson M.D. Mark Nickerson M.D. 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
--- OUTSIDE RECORDS SUMMARY | 2024-04-03 17:35 | XMS_ITS | Encounter Summary ---
Author Organization [facility] Healthcare Address [address] [place] [address] Care Team Providers Care Online Media Director Name Role Phone Unavailable Primary Care Provider Unavailabl e Encounter Details Date Type Department Care Team (Latest Contact Info) Description 07/09/2014 6:57 PM CDT - 07/14/2014 12:23 PM CDT Hospital Encounter [facility] Daniel Pina MD [address] [place] [address] Salmonella gastroenteritis; Hyposmolality and/or hyponatremia; Acute renal failure (HCC); Bladder and urethra injury; Hypopotassemia; Hypertensive kidney disease with chronic kidney disease, stage 1-4; Chronic kidney disease; Hematuria; Other late effects of cerebrovascular disease; Generalized muscle weakness; Other speech disturbance; Other speech and language deficits, late effect of cerebrovascular disease; Hypotension; Other and unspecified hyperlipidemia; Esophageal reflux; Osteoarthrosis; Other depressive disorder; Tobacco use disorder; Accident Social History Tobacco Use Types Packs/Day Years Used Date Smoking Tobacco: Never Assessed Sex and Gender Information Value Date Recorded Sex Assigned at Not on file 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 Gender Identity Not on file Sexual Orientation Not on file documented as of this encounter Last Filed Vital Signs Vital Sign Reading Time Taken Comments Blood Pressure 117/64 07/14/2014 7:25 AM CDT Pulse 57 07/14/2014 7:25 AM CDT Temperature 36.7 ??C (98.1 ??F) 07/14/2014 7:25 AM CD T Respiratory Rate - - Oxygen Saturation 97% 07/14/2014 7:25 AM CDT Inhaled Oxygen Concentration - - Weight 80.4 kg (177 lb 4 oz) 07/14/2014 7:25 AM CDT Height 182.9 cm (6') 07/14/2014 7:25 AM CDT Body Mass Index 24.04 07/14/2014 7:25 AM CDT documented in this encounter Plan of Treatment Not on file documented as of this encounter Procedures Procedure Name Priority Date/Time Associated Diagnosis Comments SCAN - LABS 07/15/2014 12:00 AM CDT CBC WITH AUTO DIFFERENTIAL Routine 07/14/2014 6:40 AM CDT BASIC METABOLIC PANEL Routine 07/14/2014 6:40 AM CDT CBC WITH AUTO DIFFERENTIAL Routine 07/13/2014 7:06 AM CDT BASIC METABOLIC PANEL Routine 07/13/2014 7:06 AM CDT MICROBIOLOGY SPECIMEN REPORT (CONVERTED) Routine 07/12/2014 3:50 PM CDT HIV-1 AND HIV-2 ANTIBODY, RAPID Routine 07/12/2014 3:50 PM CDT MICROBIOLOGY SPECIMEN REPORT (CONVERTED) Routine 07/12/2014 11:20 AM CDT CBC WITH AUTO DIFFERENTIAL Routine 07/12/2014 5:46 AM CDT BASIC METABOLIC PANEL Routine 07/12/2014 5:46 AM CDT CBC WITH AUTO DIFFERENTIAL Routine 07/11/2014 5:39 AM CDT BASIC METABOLIC PANEL Routine 07/11/2014 5:39 AM CDT OVA AND PARASITE EXAMINATION Routine 07/10/2014 4:30 PM CDT MICROBIOLOGY SPECIMEN REPORT (CONVERTED) Routine 07/10/2014 1:48 PM CDT CBC WITH AUTO DIFFERENTIAL Routine 07/10/2014 8:35 AM CDT BASIC METABOLIC PANEL Routine 07/10/2014 8:35 AM CDT OCCULT BLOOD, FECAL (FIT) Routine 07/10/2014 4:30 AM CDT INFLUENZA A/B ANTIGENS, RAPID Routine 07/09/2014 11:37 PM CDT UA WITH CULTURE REFLEX Routine 5 11:35 PM CDT PHOSPHORUS Routine 07/09/2014 6:47 PM CDT MAGNESIUM Routine 07/09/2014 6:47 PM CDT CBC WITH AUTO DIFFERENTIAL Routine 07/09/2014 2:49 PM CDT COMPREHENSIVE METABOLIC PANEL Routine 07/09/2014 2:49 PM CDT LACTOFERRIN,QL,STOOL Routine 07/09/2014 2:40 PM CDT CLOSTRIDIUM DIFFICILE ASSAY Routine 07/09/2014 2:40 PM CDT documented in this encounter Results * SCAN - LABS (07/15/2014 12:00 AM CDT) Narrative 07/15/2014 12:00 AM CDT Ordered by an unspecified provider. us Historical Provider MD Final Res ult * (ABNORMAL) CBC with auto differential (07/14/2014 6:40 AM CDT) WBC 7.9 4.6 - 10.2 x10 3/ul RBC 3.53(L) 4.11 - 5.71 x10 6/ul Hemoglobin 11.4(L) 13.0 - 17.0 g/dl Hct 34.1(L) 38.2 - 48.5 % MCV 96.6 80.0 - 97.0 fl MCH 32.3(H) 27.0 - 31.2 pg 07/14/2014 7:25 AM [facility] MCHC 33.4 31.8 - 35.4 g/dl 07/14/2014 7:25 AM [facility] RDW 12.2 11.6 - 14.8 % 07/14/2014 7:25 AM [facility] Plt Count 349 124 - 400 x10 3/ul 07/14/2014 7:25 AM [facility] MPV 9.7 7.4 - 10.4 fl 07/14/2014 7:25 AM [facility] Differential Method AUTOMATED DIFF --------- -- 07/14/2014 7:25 AM [facility] Neut % 61.7 37.0 - 85.0 % 07/14/2014 7:25 AM [facility] Immature Gran % 1.4 0.0 - 3.0 % 07/14/2014 7:25 AM [facility] Lymph % 20.5 5.0 - 45.0 % 07/14/2014 7:25 AM [facility] Amelia % 8.5 3.0 - 15.0 % 07/14/2014 7:25 AM [facility] Eos % 7.1(H) 0.0 - 7.0 % 07/14/2014 7:25 AM [facility] RES[facility] Baso % 0.8 0.0 - 2.0 % 07/14/2014 7:25 AM [facility] RESULTS ABSOLUTE COUNTS ABSOLUTE COUNTS --------- -- 07/14/2014 7:25 AM [facility] Absolute Neuts (auto) 4.8 1.7 - 8.7 x10 3/ul 07/14/2014 7:25 AM [facility] Immature Gran # 0.1 0.0 - 0.3 x10 3/ul Absolute Lymphs (auto) 1.6 0.2 - 4.6 x10 3/ul Absolute Monos (auto) 0.7 0.1 - 1.5 x10 3/ul Absolute Eos (auto) 0.6 0.0 - 0.7 x10 3/ul Absolute Basos (auto) 0.1 0.0 - 0.2 x10 3/ul 07/14/2014 6:40 AM CDT 07/14/2014 7:18 AM CDT us Daniel Roth MD LAB BLOOD ORDERABLES Final Res ult [facility] HISTORICAL RESULTS * (ABNORMAL) Basic metabolic panel (07/14/2014 6:40 AM CDT) Sodium 142 135 - 145 mmol/L Potassium 4.3 3.3 - 5.1 mmol/L Chloride 103 96 - 108 mmol/L Carbon Dioxide 28 22 - 32 mmol/L Anion Gap 11 7 - 16 Glucose 102(H) 70 - 100 mg/dL Comment:As of March 02 14 new normal range in use. BUN 19 6 - 20 mg/dL Creatinine 0.8 0.5 - 1.3 mg/dL Kidney Disease Stage > 90 mL/MIN 07/14/2014 7:54 AM T [facility] [employer] HISTORICAL RESULTS Comment: NOTE; ??The GFR is [...] Kidney failure or on dialysis @ Calcium 9.2 8.6 - 10.0 mg/dL 07/14/2014 7:54 AM T [facility] [employer] HISTORICAL RESULTS 07/14/2014 6:40 AM CDT 07/14/2014 7:18 AM CDT us Daniel Roth MD LAB BLOOD ORDERABLES Final Res ult [facility] HISTORICAL RESULTS * (ABNORMAL) CBC with auto differential (07/13/2014 7:06 AM CDT) WBC 9.2 4.6 - 10.2 x10 3/ul 07/13/2014 7:53 AM T [employer] HISTORICAL RESULTS Comment:Results Reviewed RBC 3.58(L) 4.11 - 5.71 x10 6/ul 07/13/2014 7:53 AM T [facility] [employer] HISTORICAL RESULTS Hemoglobin 11.5(L) 13.0 - 17.0 g/dl 07/13/2014 7:53 AM T [facility] [employer] HISTORICAL RESULTS Hct 34.1(L) 38.2 - 48.5 % 07/13/2014 7:53 AM [facility] RES[facility] MCV 95.3 80.0 - 97.0 fl MCH 32.1(H) 27.0 - 31.2 pg 07/13/2014 7:53 AM [facility]IST[facility] RESULTS MCHC 33.7 31.8 - 35.4 g/dl 07/13/2014 7:53 AM [facility]ISTORICAL RESULTS RDW 11.9 11.6 - 14.8 % 07/13/2014 7:53 AM [facility]ISTORICAL RESULTS Plt Count 315 124 - 400 x10 3/ul 07/13/2014 7:53 AM [facility]IST[facility] RESULTS MPV 9.2 7.4 - 10.4 fl 07/13/2014 7:53 AM [facility] RES[facility] Differential Method AUTOMATED DIFF --------- -- 07/13/2014 7:53 AM [facility]ISTOR[facility] RESULTS Neut % 67.7 37.0 - 85.0 % 07/13/2014 7:53 AM [facility]ISTORICAL RESULTS Immature Gran % 0.8 0.0 - 3.0 % 07/13/2014 7:53 AM [facility]ISTORICAL RESULTS Lymph % 16.8 5.0 - 45.0 % 07/13/2014 7:53 AM [facility]ISTOR[facility] RESULTS Amelia % 9.1 3.0 - 15.0 % 07/13/2014 7:53 AM [facility] RESULTS Eos % 4.9 0.0 - 7.0 % 07/13/2014 7:53 AM [facility]IST[facility] RESULTS Baso % 0.7 0.0 - 2.0 % 07/13/2014 7:53 AM [facility]ISTORICAL RESULTS ABSOLUTE COUNTS ABSOLUTE COUNTS --------- -- 07/13/2014 7:53 AM [facility]ISTOR[facility] RESULTS Absolute Neuts (auto) 6.3 1.7 - 8.7 x10 3/ul 07/13/2014 7:53 AM [facility]IST[facility] RESULTS Immature Gran # 0.1 0.0 - 0.3 x10 3/ul Absolute Lymphs (auto) 1.6 0.2 - 4.6 x10 3/ul Absolute Monos (auto) 0.8 0.1 - 1.5 x10 3/ul Absolute Eos (auto) 0.5 0.0 - 0.7 x10 3/ul Absolute Basos (auto) 0.1 0.0 - 0.2 x10 3/ul 07/13/2014 7:06 AM CDT 07/13/2014 7:34 AM CDT us Daniel Roth MD LAB BLOOD ORDERABLES Final Res ult [facility] HISTORICAL RESULTS * Basic metabolic panel (07/13/2014 7:06 AM CDT) Sodium 142 135 - 145 mmol/L Potassium 4.3 3.3 - 5.1 mmol/L Chloride 104 96 - 108 mmol/L Carbon Dioxide 25 22 - 32 mmol/L Anion Gap 13 7 - 16 Glucose 99 70 - 100 mg/dL Comment:As of March 02 14 new normal range in use. BUN 12 6 - 20 mg/dL Creatinine 0.8 0.5 [...] Kidney failure or on dialysis @ Calcium 8.8 8.6 - 10.0 mg/dL 07/13/2014 7:06 AM CDT 07/13/2014 7:34 AM CDT us Daniel Roth MD LAB BLOOD ORDERABLES Final Res ult [facility] HISTORICAL RESULTS * Microbiology Specimen Report (Converted) (07/12/2014 3:50 PM CDT) 07/12/2014 3:50 PM CDT 07/12/2014 4:08 PM CDT Narrative [facility] HISTORICAL RESULTS - 07/12/2014 3:50 PM CDT Microbiology Specimen Report (Converted) SPECIMEN [id number] ?? COLLECTED: 2014-07-12 15:50:00 [id number] ?? REQ#: [id number] REQUESTING DR: Daniel Roth MD ?? SOURCE: BLOOD ?? SP DESC: COMMENT: LHAND BC Draw ? LAC BC Draw ?? --- PROCEDURE --- ?--- RESULT --- ?? CULTURE BLOOD ADULT (SET OF 2) ??(Final) ??- ??Performed at [facility] ?* NO GROWTH DAY 5 - [facility] ? [address] ? [place] [address] ? Tate Novak MD Procedure Note 06/20/2018 Microbiology Specimen Report (Converted) SPECIMEN [id number] COLLECTED: 2014-07-12 15:50:00 [id number] REQ#:[id number] REQUESTING DR: Daniel Roth MD SOURCE: BLOOD SP DESC: COMMENT: LHAND BC Draw LAC BC Draw --- PROCEDURE --- --- RESULT --- CULTURE BLOOD ADULT (SET OF 2) (Final) - Performed at [facility] * NO GROWTH DAY 5 - [address] [id number] [place] [address] Tate Novak MD Daniel Roth MD LAB BLOOD ORDERABLES Final Res ult [facility] HISTORICAL RESULTS * HIV-1 and HIV-2 antibody, rapid (07/12/2014 3:50 PM CDT) Pathologist [facility] HIV 1/2 Ab NONREACTIVE NONREACTIVE Comment: Note: ??A Non-Reactive result indicates an absence of detectable HIV-1/2 antibodies in the patient. However, it does not rule out recent exposure or past infection with HIV. 07/12/2014 3:50 PM CDT 07/12/2014 4:08 PM CDT Narrative [facility] HISTORICAL RESULTS - 07/12/2014 4:31 PM CDT us Alex Tang MD LAB BLOOD ORDERABLES Final R esult Performing Organization Address [facility]/ZIP Co de Phone Number [facility] HISTORICAL RESULTS * Microbiology Specimen Report (Converted) (07/12/2014 11:20 AM CDT) 07/12/2014 11:2 0 AM CDT 07/12/2014 11:41 AM CDT Narrative [facility] HISTORICAL RESULTS - 07/12/2014 11:20 AM CDT Microbiology Specimen Report (Converted) SPECIMEN [id number] ?? COLLECTED: 2014-07-12 11:20:00 [id number] ?? REQ#: [id number] REQUESTING DR: Daniel Roth MD ?? SOURCE: BLOOD ?? SP DESC: COMMENT: LHAND BC Draw ?? --- PROCEDURE --- ?--- RESULT --- ?? CULTURE BLOOD ADULT (SET OF 2) ??(Final) ??- ??Performed at [facility] ?* NO GROWTH DAY 5 - [facility] ? [address] ? [place] [address] ? Tate Novak MD Procedure Note 06/20/2018 Microbiology Specimen Report (Converted) SPECIMEN [id number] COLLECTED: 2014-07-12 11:20:00 [id number] REQ#:[id number] REQUESTING DR: Daniel Roth MD SOURCE: BLOOD SP DESC: COMMENT: LHAND BC Draw --- PROCEDURE --- --- RESULT --- CULTURE BLOOD ADULT (SET OF 2) (Final) - Performed at [facility] * NO GROWTH DAY 5 - [facility] [address] [place] [address] Tate Novak MD us Daniel Roth MD LAB BLOOD ORDERABLES Final Res ult Performing Organization Address [facility]/ZIP Co de Phone Number [facility] HISTORICAL RESULTS * (ABNORMAL) CBC with auto differential (07/12/2014 5:46 AM CDT) [facility] WBC 6.4 4.6 - 10.2 x10 3/ul 07/12/2014 5:55 AM CDT [facility] HISTORICAL RESULTS RBC 3.57(L) 4.11 - 5.71 x10 6/ul 07/12/2014 5:55 AM CDT [facility] H[facility]ULTS Hemoglobin 11.8(L) 13.0 - 17.0 g/dl 07/12/2014 5:55 AM CDT [facility] H[facility] RESULTS Hct 33.9(L) 38.2 - 48.5 % 07/12/2014 5:55 AM CDT [facility] HISTORICAL RESULTS MCV 95.0 80.0 - 97.0 fl 07/12/2014 5:55 AM CDT [facility] HISTORICAL RESULTS MCH 33.1(H) 27.0 - 31.2 pg 07/12/2014 5:55 AM CDT [facility] H[facility] RESULTS MCHC 34.8 31.8 - 35.4 g/dl 07/12/2014 5:55 AM CDT [facility] HISTORICAL RESULTS RDW 11.9 11.6 - 14.8 % 07/12/2014 5:55 AM CDT [facility] HISTORICAL RESULTS Plt Count 277 124 - 400 x10 3/ul 07/12/2014 5:55 AM CDT [facility] HISTORICAL RESULTS MPV 9.0 7.4 - 10.4 fl 07/12/2014 5:55 AM CDT [facility] HISTORICAL RESULTS Differential Method AUTOMATED DIFF --------- -- 07/12/2014 5:55 AM CDT [facility] HISTORICAL RESULTS Neut % 61.4 37.0 - 85.0 % 07/12/2014 5:55 AM CDT [facility] HISTORICAL RESULTS Immature Gran % 0.5 0.0 - 3.0 % 07/12/2014 5:55 AM CDT [facility] HISTORICAL RESULTS Lymph % 21.5 5.0 - 45.0 % 07/12/2014 5:55 AM CDT [facility] H[facility] RESULTS Amelia % 9.4 3.0 - 15.0 % 07/12/2014 5:55 AM CDT [facility] HISTORICAL RESULTS Eos % 6.6 0.0 - 7.0 % 07/12/2014 5:55 AM CDT [facility] HISTORICAL RESULTS Baso % 0.6 0.0 - 2.0 % ABSOLUTE COUNTS ABSOLUTE COUNTS --------- -- Absolute Neuts (auto) 3.9 1.7 - 8.7 x10 3/ul Immature Gran # 0.0 0.0 - 0.3 x10 3/ul Absolute Lymphs (auto) 1.4 0.2 - 4.6 x10 3/ul Absolute Monos (auto) 0.6 0.1 - 1.5 x10 3/ul Absolute Eos (auto) 0.4 0.0 - 0.7 x10 3/ul Absolute Basos (auto) 0.0 0.0 - 0.2 x10 3/ul 07/12/2014 5:46 AM CDT 07/12/2014 5:50 AM CDT us Daniel Roth MD LAB BLOOD ORDERABLES Final Res ult [facility] HISTORICAL RESULTS * Basic metabolic panel (07/12/2014 5:46 AM CDT) Sodium 142 135 - 145 mmol/L Potassium 3.9 3.3 - 5.1 mmol/L Chloride 105 96 - 108 mmol/L Carbon Dioxide 27 22 - 32 mmol/L Anion Gap 10 7 - 16 Glucose 97 70 - 100 mg/dL Comment:As of March 02 new normal range in use. BUN 10 6 - 20 mg/dL Creatinine 0.7 0.5 - 1.3 mg/dL [...] Kidney failure or on dialysis @ Calcium 8.7 8.6 - 10.0 mg/dL 07/12/2014 5:46 AM CDT 07/12/2014 5:50 AM CDT us Daniel Roth MD LAB BLOOD ORDERABLES Final Res ult [facility] HISTORICAL RESULTS * (ABNORMAL) CBC with auto differential (07/11/2014 5:39 AM CDT) WBC 5.9 4.6 - 10.2 x10 3/ul 07/11/2014 6:04 AM CDT [facility] [employer] HISTORICAL RESULTS RBC 3.28(L) 4.11 - 5.71 x10 6/ul 07/11/2014 6:04 AM CDT [facility] [employer] HISTORICAL RESULTS Hemoglobin 11.0(L) 13.0 - 17.0 g/dl 07/11/2014 6:04 AM CDT [facility] [employer] HISTORICAL RESULTS Hct 31.8(L) 38.2 - 48.5 % 07/11/2014 6:04 AM CDT [facility] [employer] HISTORICAL RESULTS MCV 97.0 80.0 - 97.0 fl 07/11/2014 6:04 AM CDT [facility] [employer] HISTORICAL RESULTS MCH 33.5(H) 27.0 - 31.2 pg 07/11/2014 6:04 AM CDT [facility] [employer] HISTORICAL RESULTS MCHC 34.6 31.8 - 35.4 g/dl 07/11/2014 6:04 AM CDT [employer] HISTORICAL RESULTS RDW 11.9 11.6 - 14.8 % 07/11/2014 6:04 AM CDT [facility] [employer] HISTORICAL RESULTS Plt Count 243 124 - 400 x10 3/ul 07/11/2014 6:04 AM CDT [facility] [employer] HISTORICAL RESULTS MPV 9.5 7.4 - 10.4 fl 07/11/2014 6:04 AM T [facility] [employer] HISTORICAL RESULTS Differential Method AUTOMATED DIFF --------- -- 07/11/2014 6:04 AM CDT [employer] HISTORICAL RESULTS Neut % 60.2 37.0 - 85.0 % 07/11/2014 6:04 AM CDT [facility] [employer] HISTORICAL RESULTS Immature Gran % 0.3 0.0 - 3.0 % 07/11/2014 6:04 AM CDT [facility] [employer] HISTORICAL RESULTS Lymph % 18.8 5.0 - 45.0 % 07/11/2014 6:04 AM CDT [facility] [employer] HISTORICAL RESULTS Amelia % 13.7 3.0 - 15.0 % 07/11/2014 6:04 AM CDT [facility] [employer] HISTORICAL RESULTS Eos % 6.3 0.0 - 7.0 % Baso % 0.7 0.0 - 2.0 % ABSOLUTE COUNTS ABSOLUTE COUNTS --------- -- Absolute Neuts (auto) 3.6 1.7 - 8.7 x10 3/ul Immature Gran # 0.0 0.0 - 0.3 x10 3/ul Absolute Lymphs (auto) 1.1 0.2 - 4.6 x10 3/ul Absolute Monos (auto) 0.8 0.1 - 1.5 x10 3/ul Absolute Eos (auto) 0.4 0.0 - 0.7 x10 3/ul Absolute Basos (auto) 0.0 0.0 - 0.2 x10 3/ul 07/11/2014 5:39 AM CDT 07/11/2014 5:48 AM CDT us Daniel Roth MD LAB BLOOD ORDERABLES Final Res ult [facility] HISTORICAL RESULTS * (ABNORMAL) Basic metabolic panel (07/11/2014 5:39 AM CDT) Sodium 140 135 - 145 mmol/L Potassium 3.7 3.3 - 5.1 mmol/L Chloride 103 96 - 108 mmol/L Carbon Dioxide 29 22 - 32 mmol/L Anion Gap 8 7 - 16 Glucose 103(H) 70 - 100 mg/dL Comment:As of March 02 14 new normal range in use. BUN 10 6 - 20 mg/dL Creatinine 0.8 0.5 [...] Kidney failure or on dialysis @ Calcium 8.1(L) 8.6 - 10.0 mg/dL 07/11/2014 5:39 AM CDT 07/11/2014 5:48 AM CDT us Daniel Roth MD LAB BLOOD ORDERABLES Final Res ult [facility] HISTORICAL RESULTS * Ova and parasite examination (07/10/2014 4:30 PM CDT) Giardia Ag NEGATIVE NEGATIVE Cryptosporidium Ag NEGATIVE NEGATIVE 2014 12:38 PM CDT [facility] HISTORICAL RESULTS 07/10/2014 4:30 PM CDT 07/11/2014 11:03 AM CDT Narrative [facility] HISTORICAL RESULTS - 07/11/2014 12:38 PM CDT IF RESULTS ARE NEGATIVE AND SYMPTOMS PERSIST, OR ?? IF PATIENT'S CONDITION IS CLINICALLY INDICATIVE ?? OF OTHER PARASITES, CONSIDER ORDERING SPECIAL O&P ?? INTERNATIONAL . ? SPECIAL O&P INTERNATIONAL IS INDICATED FOR THE PATIENT ?? WITH DIARRHEA AND A RELEVANT TRAVEL HISTORY OUTSIDE ?? THE [place] OR WHO IS A PAST OR PRESENT RESIDENT ?? OF A DEVELOPING COUNTRY, ?? CONTACT MICROBIOLOGY WITHIN 5 DAYS IF ADDITIONAL TESTING ?? IS INDICATED. us Daniel Roth MD LAB MICROBIOLOGY - GENERAL ORD ERABLES Final Result Performing Organization Address [facility] Co de Phone Number [facility] HISTORICAL RESULTS * Microbiology Specimen Report (Converted) (07/10/2014 1:48 PM CDT) 07/10/2014 1:48 PM CDT 07/10/2014 2:53 PM CDT [facility] HISTORICAL RESULTS - 07/10/2014 1:48 PM CDT Microbiology Specimen Report (Converted) SPECIMEN [id number] ?? COLLECTED: 2014-07-10 13:48:00 LD ?? REQ#: [id number] REQUESTING DR: Laurie Owens MD ?? SOURCE: STOOL ?? SP DESC: FECES COMMENT: Collected By ls ? Collected By ls ? Comment stool ?? --- PROCEDURE --- ?--- RESULT --- ?? GRAM STAIN ??(Final) ??- ??Performed at [facility] ?* MANY GRAM NEGATIVE BACILLI ?* MANY GRAM POSITIVE BACILLI ?* MANY GRAM POSITIVE COCCI ?* MODERATE YEAST CULTURE STOOL ??(Final) ??- ??Performed at [facility] ?* CAMPYLOBACTER,AEROMONAS,PLESIOMONAS, ?* EDWARDSIELLA RECOVERED ?* NO SHIGELLA, E.COLI 0157, YERSINIA, ?? * Organism 1 - SALMONELLA SPECIES [SALMOM.SP.] ?* RECOVERED ?* SALMONELLA ENTERITIDIS ?* CONFIRMED BY [facility] ? @CRITICAL VALUE CALLED and REPEATED. ? @at:0704 07/12/14 by:Whitley Patel to: Nini Santiago ? @RN ? [SALMOM.SP.] ? M.I.C. ?RX AMPICILLIN ? <=2 ? S TRIMETHOPRIM/SULFAMETHOXAZOLE ??<=20 ?S ??S=Susceptible ?? I=Intermediate ?? S=Resistant ??SDD=Susceptible Dose Dependent ?? N/R=No Report ?MAYRA =[facility] - [facility] ? [address] [place] [address] ? [place] [address] ? Tate Novak MD Procedure Note 06/20/2018 Microbiology Specimen Report (Converted) SPECIMEN [id number] COLLECTED: 2014-07-10 13:48:00 LD REQ#:[id number] REQUESTING DR: Laurie Owens MD SOURCE: STOOL SP DESC: FECES COMMENT: Collected By ls Collected By ls Comment stool --- PROCEDURE --- --- RESULT --- GRAM STAIN (Final) - Performed at [facility] * MANY GRAM NEGATIVE BACILLI * MANY GRAM POSITIVE BACILLI * MANY GRAM POSITIVE COCCI * MODERATE YEAST CULTURE STOOL (Final) - Performed at [facility] * CAMPYLOBACTER,AEROMONAS,PLESIOMONAS, * EDWARDSIELLA RECOVERED * NO SHIGELLA, E.COLI 0157, YERSINIA, * Organism 1 - SALMONELLA SPECIES [SALMOM.SP.] * RECOVERED * SALMONELLA ENTERITIDIS * CONFIRMED BY [facility] @CRITICAL VALUE CALLED and REPEATED. @at:[id number] 07/12/14 by:Whitley Patel to: Nini Santiago @RN [SALMOM.SP.] M.I.C. RX AMPICILLIN <=2 S TRIMETHOPRIM/SULFAMETHOXAZOLE <=20 S S=Susceptible I=Intermediate S=Resistant SDD=Susceptible Dose Dependent N/R=No Report [facility] =[facility] [place] [address] Tate Novak MD Laurie Owens MD LAB BLOOD ORDERABLES Fi nal Result [facility] HISTORICAL RESULTS * (ABNORMAL) CBC with auto differential (07/10/2014 8:35 AM CDT) WBC 5.4 4.6 - 10.2 x10 3/ul 07/10/2014 8:47 AM CDT [facility] HISTORICAL RESULTS Comment:Results Reviewed RBC 3.70(L) 4.11 - 5.71 x10 6/ul 07/10/2014 8:47 AM CDT [facility] HISTORICAL RESULTS Hemoglobin 12.4(L) 13.0 - 17.0 g/dl 07/10/2014 8:47 AM CDT [facility] - [facility] HISTORICAL RESULTS Hct 34.9(L) 38.2 - 48.5 % 07/10/2014 8:47 AM CDT [facility] HISTORICAL RESULTS MCV 94.3 80.0 - 97.0 fl 07/10/2014 8:47 AM CDT [facility] HISTORICAL RESULTS MCH 33.5(H) 27.0 - 31.2 pg 07/10/2014 8:47 AM CDT [facility] HISTORICAL RESULTS MCHC 35.5(H) 31.8 - 35.4 g/dl 07/10/2014 8:47 AM CDT [facility] HISTORICAL RESULTS RDW 11.9 11.6 - 14.8 % 07/10/2014 8:47 AM CDT [facility] HISTORICAL RESULTS Plt Count 247 124 - 400 x10 3/ul 07/10/2014 8:47 AM CDT [facility] HISTORICAL RESULTS MPV 9.3 7.4 - 10.4 fl 07/10/2014 8:47 AM CDT [facility] HISTORICAL RESULTS Differential Method AUTOMATED DIFF --------- -- 07/10/2014 8:47 AM CDT [facility] HISTORICAL RESULTS Neut % 62.0 37.0 - 85.0 % 07/10/2014 8:47 AM CDT [facility] HISTORICAL RESULTS Immature Gran % 0.2 0.0 - 3.0 % 07/10/2014 8:47 AM CDT [facility] HISTORICAL RESULTS Lymph % 13.4 5.0 - 45.0 % 07/10/2014 8:47 AM CDT [facility] HISTORICAL RESULTS Amelia % 17.1(H) 3.0 - 15.0 % 07/10/2014 8:47 AM CDT [facility] HISTORICAL RESULTS Eos % 6.6 0.0 - 7.0 % Baso % 0.7 0.0 - 2.0 % ABSOLUTE COUNTS ABSOLUTE COUNTS --------- -- Absolute Neuts (auto) 3.4 1.7 - 8.7 x10 3/ul Immature Gran # 0.0 0.0 - 0.3 x10 3/ul Absolute Lymphs (auto) 0.7 0.2 - 4.6 x10 3/ul Absolute Monos (auto) 0.9 0.1 - 1.5 x10 3/ul Absolute Eos (auto) 0.4 0.0 - 0.7 x10 3/ul Absolute Basos (auto) 0.0 0.0 - 0.2 x10 3/ul 07/10/2014 8:35 AM CDT 07/10/2014 8:44 AM CDT us Daniel Roth MD LAB BLOOD ORDERABLES Final Res ult [facility] HISTORICAL RESULTS * (ABNORMAL) Basic metabolic panel (07/10/2014 8:35 AM CDT) Sodium 141 135 - 145 mmol/L Potassium 3.3 3.3 - 5.1 mmol/L Chloride 98 96 - 108 mmol/L Carbon Dioxide 30 22 - 32 mmol/L 07/10/2014 9:06 AM [facility] Anion Gap 13 7 - 16 07/10/2014 9:06 AM [facility] Glucose 107(H) 70 - 100 mg/dL 07/10/2014 9:06 AM [facility] Comment:As of March 02 14 new normal range in use. BUN 14 6 - 20 mg/dL 07/10/2014 9:06 AM [facility] Creatinine 0.6 0.5 - 1.3 mg/dL 07/10/2014 9:06 AM [facility] Kidney Disease Stage > 90 mL/MIN 07/10/2014 9:06 AM [facility] Comment: NOTE; ??The GFR is [...] Kidney failure or on dialysis @ Calcium 8.6 8.6 - 10.0 mg/dL 07/10/2014 9:06 AM [facility] RESULTS 07/10/2014 8:35 AM CDT 07/10/2014 8:44 AM CDT us Daniel Roth MD LAB BLOOD ORDERABLES Final Res ult [facility] HISTORICAL RESULTS * Occult blood, fecal non neoplasm screening (07/10/2014 4:30 AM CDT) [facility] Stool Occult Blood POSITIVE NEGATIVE 07/10/2014 4:30 AM CDT 07/10/2014 6:27 AM CDT Narrative [facility] HISTORICAL RESULTS - 07/10/2014 7:04 AM CDT Collected By Daniel Roth MD LAB BODY FLUIDS AND STOOLS ORD ERABLES Final Result Performing Organization Address [facility] de Phone Number [facility] HISTORICAL RESULTS * Influenza A/B antigens, rapid (07/09/2014 11:37 PM CDT) [facility] Influenza A Ag NEGATIVE NEGATIVE Influenza B Ag NEGATIVE NEGATIVE Comment: A NEGATIVE RESULT DOES NOT ELIMINATE THE POSSIBILITY OF AN ?? INFLUENZA A OR B INFECTION. ??INADEQUATE SPECIMEN COLLECTION ?? OR IMPROPER SAMPLE HANDLING/TRANSPORT, OR LOW LEVELS OF ?? VIRAL SHEDDING MAY YIELD A FALSE NEGATIVE RESULT. 07/09/2014 11:3 7 PM CDT 07/10/2014 12:20 AM CDT Daniel Roth MD LAB MICROBIOLOGY - GENERAL ORD ERABLES Final Result Performing Organization Address [facility] de Phone Number [facility] HISTORICAL RESULTS * (ABNORMAL) UA with Culture Reflex (07/09/2014 11:35 PM CDT) [facility] Ur Collection Type CATHETERIZED Ur Culture Indicated? C&S NOT INDICATED Urine Color STRAW YELLOW Urine Clarity CLEAR CLEAR Urine Glucose (UA) NORMAL NORMAL mg/dL Urine Bilirubin NEGATIVE NEGATIVE mg/dl Urine Ketones NEGATIVE NEGATIVE mg/dL Ur Specific [place] 1.009 1.005 - 1.025 Urine Blood 0.03(H) NEGATIVE mg/dl Urine pH 5.0 5.0 - 8.0 Urine Protein NEGATIVE NEGATIVE mg/dL Urine Urobilinogen NORMAL NORMAL mg/dL Urine Nitrite NEGATIVE NEGATIVE Ur Leukocyte Esterase NEGATIVE NEGATIVE Ian/ul Ur Microscopic Review Not Indicated Urine RBC 8 0 - 2 /HPF Urine WBC 2 0 - 2 /HPF Urine Bacteria Rare /HPF Urine Mucus Rare /LPF Ur Squamous Epith Cells Rare /HPF Hyaline Casts 4 0 - 2 /LPF 07/09/2014 11:3 5 PM CDT 07/09/2014 11:59 PM [facility] Narrative [facility] HISTORICAL RESULTS - 07/10/2014 12:08 AM CDT Collected By us Laurie Owens MD LAB URINE ORDERABLES Fi nal Result [facility] HISTORICAL RESULTS * Phosphorus (07/09/2014 6:47 PM CDT) Pathologist [facility] Phosphorus 3.6 2.5 - 4.5 mg/dL 07/09/2014 6:47 PM CDT 07/09/2014 6:50 PM CDT Daniel Roth MD LAB BLOOD ORDERABLES Final Res ult Performing Organization Address [facility]/ZIP Co de Phone Number [facility] HISTORICAL RESULTS * Magnesium (07/09/2014 6:47 PM CDT) [facility] Magnesium 1.6 1.6 - 2.6 mg/dL Comment:Magnesium sulfate th erapy: 1.25-3.75 mmol/L 07/09/2014 6:47 PM CDT 07/09/2014 6:50 PM CDT Daniel Roth MD LAB BLOOD ORDERABLES Final Res ult Performing Organization Address [facility] Co de Phone Number [facility] HISTORICAL RESULTS * (ABNORMAL) Comprehensive metabolic panel (07/09/2014 2:49 PM CDT) [facility] Sodium 131(L) 135 - 145 mmol/L Potassium 3.0(L) 3.3 - 5.1 mmol/L Chloride 88(L) 96 - 108 mmol/L Carbon Dioxide 34(H) 22 - 32 mmol/L Anion Gap 9 7 - 16 Glucose 104(H) 70 - 100 mg/dL Comment:As of March 02 14 new normal range in use. BUN 24(H) 6 - 20 mg/dL Creatinine 1.5(H) 0.5 - 1.3 mg/dL Kidney Disease Stage 51 mL/MIN Comment: NOTE; ??The GFR is an [...] failure or on dialysis @ Calcium 8.9 8.6 - 10.0 mg/dL Total Protein 7.8 6.4 - 8.3 g/dL Albumin 3.7 3.5 - 5.2 g/dL Globulin 4.1(H) 2.3 - 3.5 gm/dL Albumin/Globulin Ratio 0.9(L) 1.1 - 1.8 Total Bilirubin 0.4 0.0 - 1.2 mg/dL AST 17 0 - 40 U/L ALT 11 0 - 41 U/L Alkaline Phosphatase 72 40 - 129 U/L 07/09/2014 2:49 PM CDT 07/09/2014 2:54 PM CDT us Laurie Owens MD LAB BLOOD ORDERABLES Fi nal Result [facility] HISTORICAL RESULTS * (ABNORMAL) CBC with auto differential (07/09/2014 2:49 PM CDT) [facility] WBC 8.1 4.6 - 10.2 x10 3/ul RBC 3.80(L) 4.11 - 5.71 x10 6/ul Hemoglobin 12.8(L) 13.0 - 17.0 g/dl Hct 36.1(L) 38.2 - 48.5 % MCV 95.0 80.0 - 97.0 fl MCH 33.7(H) 27.0 - 31.2 pg MCHC 35.5(H) 31.8 - 35.4 g/dl RDW 12.0 11.6 - 14.8 % Plt Count 265 124 - 400 x10 3/ul MPV 9.1 7.4 - 10.4 fl Differential Method AUTOMATED DIFF --------- -- Neut % 65.4 37.0 - 85.0 % Immature Gran % 0.2 0.0 - 3.0 % Lymph % 15.5 5.0 - 45.0 % Amelia % 15.0 3.0 - 15.0 % Eos % 3.2 0.0 - 7.0 % Baso % 0.7 0.0 - 2.0 % ABSOLUTE COUNTS ABSOLUTE COUNTS --------- -- Absolute Neuts (auto) 5.3 1.7 - 8.7 x10 3/ul Immature Gran # 0.0 0.0 - 0.3 x10 3/ul Absolute Lymphs (auto) 1.3 0.2 - 4.6 x10 3/ul Absolute Monos (auto) 1.2 0.1 - 1.5 x10 3/ul Absolute Eos (auto) 0.3 0.0 - 0.7 x10 3/ul Absolute Basos (auto) 0.1 0.0 - 0.2 x10 3/ul 07/09/2014 2:49 PM CDT 07/09/2014 2:54 PM CDT Laurie Owens MD LAB BLOOD ORDERABLES Fi nal Result Performing Organization Address [facility]/ZIP Co de Phone Number [facility] HISTORICAL RESULTS * LACTOFERRIN,QL,STOOL (07/09/2014 2:40 PM CDT) Stool Lactoferrin POSITIVE NEGATIVE Comment:(FECAL WBC BY DETECT ION OF LACTOFERRIN) 07/09/2014 2:40 PM CDT 07/09/2014 3:02 PM CDT Narrative [facility] HISTORICAL RESULTS - 07/09/2014 3:22 PM CDT Collected By KW ?? Laurie Owens MD LAB BODY FLUIDS AND STO OLS ORDERABLES Final Result Performing Organization Address [facility] de Phone Number [facility] HISTORICAL RESULTS * Clostridium difficile assay (07/09/2014 2:40 PM CDT) C, difficile (LAMP) NEGATIVE NEGATIVE Comment: [...] to be confirmed by a second specimen. 07/09/2014 2:40 PM CDT 07/09/2014 3:02 PM CDT Narrative [facility] HISTORICAL RESULTS - 07/09/2014 4:23 PM CDT Collected By KW ?? Laurie Owens MD LAB MICROBIOLOGY - GENE RAL ORDERABLES Final Result Performing Organization Address [facility]/ZIP Co de Phone Number [facility] HISTORICAL RESULTS documented in this encounter Visit Diagnoses Diagnosis Salmonella gastroenteritis Hyposmolality and/or hyponatremia Acute renal failure (HCC) Acute kidney failure, unspecified Bladder and urethra injury Bladder and urethra injury without mention of open wound into cavity Hypopotassemia Hypertensive kidney disease with chronic kidney disease, stage 1-4 Chronic kidney disease Chronic kidney disease, unspecified Hematuria Hematuria, unspecified Other late effects of cerebrovascular disease Generalized muscle weakness Muscle weakness (generalized) Other speech disturbance Other speech and language deficits, late effect of cerebrovascular disease Hypotension Unspecified hypotension Other and unspecified hyperlipidemia Esophageal reflux Osteoarthrosis Osteoarthrosis, unspecified whether generalized or localized, unspecified site Other depressive disorder Tobacco use disorder Accident Unspecified accident documented in this encounter Additional Health Concerns 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 difficile Comment:Germ watcher auto flagging 01/15/2014 01/15/2014 documented as of this encounter
--- OUTSIDE RECORDS SUMMARY | 2024-04-03 17:36 | XMS_ITS | Encounter Summary ---
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; Pneumonia due to infectious organism; Compression of brain (CMS/HCC) (HCC); Acute respiratory failure (HCC); Convulsions (HCC); Dysphagia; Encephalopathy; Cerebral edema (CMS/HCC) (HCC); Hemiplegia (CMS/HCC) (HCC); Urinary tract infection; Essential hypertension; Aphasia; Tobacco use disorder; Facial weakness; Other chronic pain; Leukocytosis; Candidiasis of skin and nails; Dermatitis due to drugs and medicines taken internally; Anemia; Other specified cardiac dysrhythmias; Other and unspecified hyperlipidemia; Restless legs syndrome; Other antihypertensive agents causing adverse effect in therapeutic use; Saluretics causing adverse effect in therapeutic use Social History Tobacco Use Types Packs/Day Years Used Date Smoking Tobacco: Never Assessed Sex and Gender Information Value Date Recorded Sex Assigned at Not on file Legal Sex Male 6:59 AM [employer] Gender Identity Not on file Sexual Orientation Not on file documented as of this encounter Last Filed Vital Signs Vital Sign Reading Time Taken Comments Blood Pressure 127/49 11/12/2013 10:00 AM CDT Pulse 78 11/12/2013 10:00 AM CDT Temperature - - Respiratory Rate - - Oxygen Saturation 96% 11/12/2013 10: 00 AM CDT Inhaled Oxygen Concentration - - Weight 89.2 kg (196 lb 11.1 oz) 11/10/2013 5:00 AM CDT Height 182.9 cm (6') 10/19/2013 9:10 PM CDT Body Mass Index 26.68 10/19/2013 9:10 PM CDT documented in this encounter H&P Notes * Provider, MD Mirna - 10/19/2013 12:00 AM CDT Patient: Curly Angelo Reg No: [id number] [facility] #: [id number] Admit Dt.: 10/19/2013 : 1955 Room No: 104IC Attending: Sherron Mahan M.D. Dictating: Juani Ag M.D. ADMISSION HISTORY PHYSICAL ADMISSION DIAGNOSIS: Left middle cerebral artery ischemic infarct. HISTORY OF PRESENT ILLNESS: This is a 58-year-old man with a history of hypertension, hyperlipidemia and tobacco abuse, who now presents with right-sided weakness. The patient was last known normal at 12 p.m. on 10/19/2013. At that time, he was beginning to complain of some blurred vision but was otherwise communicative and moving appropriately. His then went to walk the family's dog and returned at approximately 1:00 to 1:30 in the afternoon and found the patient sitting up, awake, but poorly responsive. He appeared to be pointing towards the telephone with one arm and appeared very upset but could not speak. He had very sonorous breathing and the describes some jumping of the abdomen. EMS was called and on arrival described atypical seizure , so the patient was given diazepam 10 mg en route to the outside hospital. Upon arrival to the emergency room, his blood pressure was noted to be systolic of 120's to 150's. Head computed tomography was performed at that time and showed normal brain parenchyma but hyperdense left MCA. During the course of his emergency room visit, he appeared agitated and combative and was given multiple doses of sedating medications. Ultimately, it was felt that he became too somnolent to protect his airway, and he was intubated at that time and transferred to the intensive care unit there. He was subsequently planned for transfer to [facility] for further care. After arrival to [facility], his sedation was weaned, and he had been stable overnight. A repeat head computed tomography was performed on day #2 of admission in order to gauge the size of his infarct. PAST MEDICAL HISTORY: 1. Hypertension. 2. Hyperlipidemia. 3. Depression/anxiety. 4. Chronic low back pain. PAST SURGICAL HISTORY: Multiple back surgeries. MEDICATIONS: 1. Amlodipine 10 mg daily. 2. Fenofibrate 160 mg at bedtime. 3. Gabapentin 600 mg t.i.d. 4. Ranitidine 300 mg b.i.d. 5. Diazepam 10 mg b.i.d. 6. Clonazepam 4 mg at bedtime. 7. Vicodin p.r.n. 8. Morphine p.r.n. (Doses of Vicodin and morphine are unclear to family members). ALLERGIES: NO KNOWN DRUG ALLERGIES. FAMILY HISTORY: Significant for hypertension in multiple family members. SOCIAL HISTORY: According to family: Tobacco - he smokes one pack per day but has been slowly cutting back in the recent past. Alcohol - rarely. Illicit substances - none. The patient is currently on Disability for chronic low back pain and surgeries. REVIEW OF SYSTEMS: Unable to obtain secondary to patient condition. PHYSICAL EXAMINATION: Vital Signs: Blood pressure 147/44, pulse 67, respiratory rate 23, temperature 37.5, oxygen saturation 97% on room air. Constitutional: General - The patient had recently received a dose of midazolam and fentanyl to complete scan so appears slightly sedated on ventilator. Chest: Heart rate is regular with no murmurs or gallops. Lungs: Clear with no crackles noted. Neurologic: Mental status: Opens eyes briefly to stimulation, intermittently regards to the left side. Does not follow commands. Cranial nerves: Pupils are equal, round and reactive to light. Extraocular movements appear to be intact, but he has strong left gaze preference and there appears to be a right visual field cut. Face is taped. Motor examination: Tone appears normal to decreased throughout. He moves the left arm and leg spontaneously and briskly and has at least 4 out of 5 strength. He does not move the right arm or leg spontaneously nor does he move to noxious stimuli. Sensory examination Brisk response to pain on the left side. No response to pain on the right. Coordination testing could not be performed due to the inability to follow commands. Reflexes are 1+ and symmetric throughout with downgoing toes bilaterally. LABORATORY AND X-RAY DATA: BMP: Sodium 143, potassium 3.8, chloride 106, bicarb 25, BUN 15, creatinine 1.26, glucose 108, calcium 8.8. Complete blood count: White blood count 14.3, hemoglobin 12.0, hematocrit 34.9, platelets 364. Magnesium 1.5, phosphorous 4.1. PTT 33.3, PT 13.3, INR 1.25. LDL 58. Troponin 0.22, trending to 0.07. Urinalysis; 2+ blood, 4+ urobilinogen, 2+ leucocyte esterase with microscopy showing 35 red blood cells and 13 white blood cells. Repeat head computed tomography shows hypodensity within the entire left MCA territory. Carotid ultrasound shows a large intraluminal material within the left ICA and stasis of blood, suggestive of more distal blockage. Right ICA shows less than 50% stenosis. ASSESSMENT: This is a 58-year-old man with multiple vascular risk factors, who appears to have had a large left middle cerebral artery infarction, likely secondary to embolism from left internal carotid artery thrombus. At this time, there is significant concern due to the size of stroke and lack of generalized atrophy that over the course of the first several days he may develop malignant cytotoxic edema and develop swelling and may require hemicraniectomy for decompression. PLAN: 1. Start aspirin therapy and mid-dose statin therapy (atorvastatin 40 mg) for secondary prevention, though the patient does have an intraluminal thrombus which would potentially push us to anticoagulate, due to the fact that he has a large stroke and is at significantly high risk for malignant cerebral edema and possibly need a hemicraniectomy, we will hold off on anticoagulation at this time to prevent any complications from that standpoint. 2. Monitor the patient's sodium closely in order to decrease the risk of fluid shifts within damaged brain tissue. 3. Will perform a transthoracic echocardiogram and continue to have the patient on heart monitor. 4. Allow for permission hypertension with MAP's less than 130. 5[address] a SMART consult for therapy and family education. 6. Given the patient's significant dosage of benzodiazepines and opiates at home, he was initially continued on standing dose of diazepam, however, given our concern for deterioration in the coming days associated with edema, would stop these and simply monitor for signs of withdrawal and treat on an as needed basis. This will allow for easier clinical tracking. 7. Would perform repeat head computed tomography in 24 hours to assess for development of worsening edema, but if any acute changes occur, would obtain a STAT head computed tomography and discuss with Neurosurgery the possibility of hemicraniectomy for decompression. 8. We will discuss with the family the possible need for G-tube in the setting of recovery. Reviewed by Juani Ag M.D. 11/03/2013 08:37 A Juani Ag M.D. Tanja Sandhu/aneta #[id number] Editing MT: TD: 10/20/2013 18:34:00 cc: Tanja Hodges M.D. documented in this encounter Consult Notes * Provider, MD Mirna - 10/22/2013 12:00 AM CDT Patient: Curly Angelo Reg No: [id number] [facility] #: [id number] Admit Dt.: 10/19/2013 : 1955 Room No: 104IC Attending: Sherron Mahan M.D. Consulting: Golden Chowdary M.D. Dictating: Manny Ventura M.D. Service Dt: 10/22/2013 CONSULTATION REPORT REASON FOR CONSULTATION: Left MCA stroke. BRIEF HISTORY: This is a 58-year-old male with a past medical history of hypertension, hyperlipidemia and depression who now presents with a left MCA stroke. Per family member who was present at the bedside he was last seen normal at around noon on Friday after which the stepped out to walk the dogs. When she returned the patient was not in his normal state. He had dropped his cigarette, he was completely aphasic and unable to speak, had an abnormal shaking movement of his belly with no associated arm or leg shaking. No loss of bowel or bladder. The patient was then transferred to outside hospital where a head computed tomography was performed and a dense MCA was noted on the left side. At the outside hospital he was extremely agitated for which he received Valium and due to the associated sedation he was intubated. The patient was then transferred to [facility] for further care. Here he was directly admitted to the Intensive Care Unit where he had been closely monitored and has had serial computed tomographies. He was kept intubated throughout these days. His serial head computed tomographies showed evolution of the obtuse stroke. Reportedly his exam has been unchanged throughout the last few days. The head computed tomography from earlier today showed a worsening midline shift for which we were consulted. Of note, the patient did not receive TPA at the outside hospital and since admission here he has been receiving 325 mg of aspirin which was stopped earlier today. In addition, after the finding of the worsening head computed tomography he was started on Mannitol. PAST MEDICAL HISTORY: 1. Hypertension. 2. Hyperlipidemia. 3. Depression. PAST SURGICAL HISTORY: 1. Multiple back surgeries reportedly with three cage placements. cannot elaborate any more. MEDICATIONS: 1. Amlodipine . 2. Valium. 3. Clonazepam. 4. Vicodin. 5. Morphine. ALLERGIES: NO KNOWN DRUG ALLERGIES FAMILY HISTORY: Significant for hypertension in the family. SOCIAL HISTORY: The patient smokes about one pack per day and denies drinking or using illicit drugs. He lives with his and is disabled. 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 PHYSICAL EXAMINATION: HEENT: The patient opens eyes to voice. He does not regard, does not follow commands. Pupils are 3 and trace. He has a left gaze preference. Extraocular movements cannot be assessed. His face is taped. He does have corneal, does have cough and gag. Neurologic: He localizes briskly on the left upper and withdraws in the left lower. Does not respond to stimuli on the right upper and in the right lower. LABORATORY AND X-RAY DATA: INR of 1.25, PTT 33.5. Sodium 139, creatinine 1, white blood cell count 14.6, platelets 314. Head computed tomography from today compared to prior computed tomography from yesterday shows evolution of left MCA stroke with slight worsening of the left to right midline shift from 0.4 cm to 0.6 cm. No ventricles and no hydrocephalus. IMPRESSION: This is a 58-year-old male with a history of hypertension, hyperlipidemia and now finding of a left MCA stroke and a stablely poor exam. RECOMMENDATIONS: We will monitor the patient closely for decompressive craniectomy watch. The patient will be staffed with chief resident and attending physician. Manny Ventura M.D. Electronically Signed By Golden Chowdary M.D. 10/26/2013 05:49 P Golden Chowdary M.D. /[facility] #[id number] Editing MT: TD: 10/22/2013 16:21:00 cc: Tanja Corado M.D. Afshin Salehi, M.D. documented in this encounter Miscellaneous Notes * Op Note - Provider, MD Mirna - 10/22/2013 12:00 AM CDT Patient: Curly Angelo Reg No: [id number] [facility] #: [id number] Admit Dt.: 10/19/2013 : 1955 Pt Type: 100 Room No: 104IC Attending: Golden Chowdary M.D. Surgeon: Golden Chowdary M.D. Dictating: Golden Chowdary M.D. Service Dt: 10/22/2013 OPERATIVE REPORT FIRST OFFICE SERVICES COORDINATOR: Juani Grier M.D. SECOND/THIRD OFFICE SERVICES COORDINATOR: Betty Mariano M.D. ANESTHESIA: General endotracheal anesthesia. PREOPERATIVE DIAGNOSIS (ES): Malignant middle cerebral artery distribution infarction. POSTOPERATIVE DIAGNOSIS (ES): Malignant middle cerebral artery distribution infarction. NAME OF OPERATION: 1. Left sided decompressive craniectomy of 16 x 13 cm in size. 2. Placement of intracranial pressure monitor. 3. Dural augmentation of a 15-cm dural opening augmented with bovine pericardium graft and overlying Gelfilm. INDICATIONS FOR PROCEDURE: Mr. Angelo is an unfortunate gentleman who presents with a left-sided malignant middle cerebral artery distribution infarction. Over the span of two days, this infarcted region progressively has swollen, leading to more than 1-cm midline shift and impending herniation. For this reason, we offered a left-sided decompressive craniectomy. The risks, benefits, and alternatives to surgery were discussed at length with the patient's family. The risks we emphasized include bleeding, infection cerebrospinal fluid leakage, injury to the underlying brain leading to numbness, weakness, paralysis, loss of speech, loss of cognition, loss of vision, or other underlying neurological deficit. We also noted the risk of medical complications such as deep venous thrombosis, pulmonary embolus, stroke, myocardial infarction, pneumonia, other hospital acquired infection, coma, or even . We emphasized that this procedure is a life-saving procedure and will ultimately not have any bearing on his recovery of function of the actual cerebral tissue. The patient's family acknowledged the risks and asked that we proceed. DESCRIPTION OF PROCEDURE: The patient was brought to the operating room and a timeout was performed. He was induced and intubated by Anesthesia. Two grams of Ancef was administered. He was positioned supine on the operating room table with a large wedge under his left shoulder. The head was turned towards the right. He was then positioned in the [employer] head of visual merchandising and the left side of his head was shaved and then prepped and draped in standard fashion. We made a large question-davide shaped skin flap and reflected the scalp and galea, along with the underlying temporalis muscle, anterior and inferiorly in one single myocutaneous flap. The bone was swept clean beneath. Hemostasis was obtained along the skin edges. The bone flap was made by fashioning adriana holes at the base of the temporal bone just above the zygoma in the baldwin hold and at three points along the high convexity. The dura was stripped beneath the bone and the footplate on the high-speed adriana drill was used to connect the adriana holes and create our craniectomy flap. The size was measured at 16 x 13 cm. Once this was removed, we obtained hemostasis along the dural edges. After this, the dura was incised in stellate fashion. The brain was quite swollen and began to herniate outward, as expected. There was some pulsatility noted in the brain tissue. After this, we tacked in a large, greater than 15 cm, bovine pericardium patch graft to augment the dura. This was sewn into position with 4-0 Nurolon sutures. Once this was complete, the wound was copiously irrigated. We then took a large piece of Gelfilm which we placed over the augmented dura. Once this was in position, we placed a wound drain. An intracranial pressure monitor was also inserted into the parenchymal through a small hole in the augmented dural opening. This was tunneled out beneath the skin edge. Once this was complete, we then irrigated once more and then closed the galea with a series of 2-0 inverted Vicryl sutures. The temporalis muscle was also reapproximated with 2-0 Vicryl sutures. After this, the skin edges were closed with 4-0 chromic suture. The patient tolerated the procedure well. SPONGE/INSTRUMENT/NEEDLE COUNTS: Sponge, needle and instrument counts were all confirmed times two at the conclusion of the procedure. CONDITION ON DISCHARGE FROM OPERATING ROOM: Guarded but stable. COMPLICATIONS: None. ATTESTATION OF PRESENCE: I was present for all phases of the surgery from the initial opening of the skin to the completion of decompression and the dural augmentation. I was immediately available for the closure. Electronically Signed By Golden Chowdary M.D. 10/26/2013 05:49 P Tanja Corado/jude #[id number] Editing MT: TD: 10/22/2013 22:56:00 cc: Golden Chowdary M.D. documented in this encounter Plan of Treatment Not on file documented as of this encounter Procedures Procedure Name Priority Date/Time Associated Diagnosis Comments BLOOD CELL COUNT (CBC) Routine 4 10:16 AM CDT XR CHEST 1 VIEW Routine 11/12/2013 8:25 AM CDT URINE (AEROBIC) CULTURE, CDR Routine 11/12/2013 5:57 AM CDT CLOSTRIDIUM DIFFICILE TOXIN, CDR Routine 11/12/2013 5:57 AM CDT URINE MICROSCOPY Routine 11/12/2013 5:57 AM CDT VRE SURVEILLANCE SCREEN, CDR Routine 11/12/2013 5:56 AM CDT PLASMA BASIC METABOLIC PANEL Routine 11/12/2013 2:52 AM CDT ALL MICROBIOLOGY REPORT SECTION Routine 11/12/2013 12:00 AM CDT ALL MICROBIOLOGY REPORT SECTION Routine 11/12/2013 12:00 AM CDT ALL MICROBIOLOGY REPORT SECTION Routine 11/12/2013 12:00 AM CDT DISCHARGE LABORATORY CUMULATIVE REPORT Routine 11/12/2013 12:00 AM CDT SERUM MAGNESIUM Routine 11/11/2013 2:24 AM CDT PLASMA PHOSPHORUS Routine 11/11/2013 2:2 4 AM CDT PLASMA BASIC METABOLIC PANEL Routine 11/11/2013 2:24 AM CDT BLOOD CELL COUNT (CBC) Routine 4 2:24 AM CDT URINALYSIS Routine 11/10/2013 10:21 AM CDT XR CHEST 1 VIEW Routine 11/10/2013 8:24 AM CDT SERUM MAGNESIUM Routine 11/09/2013 9:47 AM CDT PLASMA PHOSPHORUS Routine 11/09/2013 9:4 7 AM CDT PLASMA BASIC METABOLIC PANEL Routine 11/09/2013 9:47 AM CDT BLOOD CELL COUNT (CBC) Routine 4 9:47 AM CDT FL MODIFIED BARIUM SWALLOW W VIDEO Routine 11/08/2013 3:40 PM CDT SERUM MAGNESIUM Routine 11/05/2013 6:30 PM CDT PLASMA PHOSPHORUS Routine 11/05/2013 6:3 0 PM CDT PLASMA BASIC METABOLIC PANEL Routine 11/05/2013 6:30 PM CDT SERUM MAGNESIUM Routine 11/05/2013 7:39 AM CDT PLASMA PHOSPHORUS Routine 11/05/2013 7:3 9 AM CDT PLASMA BASIC METABOLIC PANEL Routine 11/05/2013 7:39 AM CDT SERUM MAGNESIUM Routine 11/04/2013 12:47 AM CDT PLASMA PHOSPHORUS Routine 11/04/2013 12: 47 AM CDT PLASMA COMPREHENSIVE METABOLIC PANEL Routine 11/04/2013 12:47 AM CDT BLOOD CELL COUNT (CBC) Routine 4 12:47 AM CDT PLASMA BASIC METABOLIC PANEL Routine 11/03/2013 2:09 AM CDT BLOOD CELL COUNT (CBC) Routine 4 2:09 AM CDT PLASMA BASIC METABOLIC PANEL Routine 11/02/2013 2:54 AM CDT BLOOD CELL COUNT (CBC) Routine 4 2:54 AM CDT VASCULAR LABORATORY REPORT 11/02/2013 IR G TUBE PLACEMENT PERCUTANEOUS Routine 11/01/2013 10:54 AM CDT PLASMA PROTHROMBIN TIME (PT) Routine 11/01/2013 12:16 AM CDT PLASMA PARTIAL THROMBOPLASTIN TIME (PTT) Routine 11/01/2013 12:16 AM CDT PLASMA BASIC METABOLIC PANEL Routine 11/01/2013 12:16 AM CDT BLOOD CELL COUNT (CBC) Routine 4 12:16 AM CDT BLOOD ABO, RH, INDIRECT AB SCREEN Routine 11/01/2013 12:16 AM CDT XR CHEST 1 VIEW Routine 10/31/2013 5:03 AM CDT ABDOMINAL RADIOGRAPHY, FRONTAL (AP) Routine 10/31/2013 2:09 AM CDT SERUM MAGNESIUM Routine 10/31/2013 12:21 AM CDT PLASMA PHOSPHORUS Routine 10/31/2013 12: 21 AM CDT PLASMA COMPREHENSIVE METABOLIC PANEL Routine 10/31/2013 12:21 AM CDT BLOOD CONSISTENT RESULT Routine 11/01/19 14 12:21 AM CDT BLOOD CELL COUNT (CBC) Routine 4 12:21 AM CDT CLOSTRIDIUM DIFFICILE TOXIN, CDR Routine 10/30/2013 1:19 PM CDT PLASMA BASIC METABOLIC PANEL Routine 10/30/2013 2:08 AM CDT BLOOD CELL COUNT (CBC) Routine 4 2:08 AM CDT XR CHEST 1 VIEW Routine 10/30/2013 1:02 AM CDT ALL MICROBIOLOGY REPORT SECTION Routine 10/30/2013 12:[address] HEAD WO CONTRAST Routine 10/29/2013 7 :30 AM CDT BLOOD GAS, ARTERIAL Routine 10/29/2013 6 :41 AM CDT BLOOD POTASSIUM, MIXED VENOUS Routine 10/29/2013 3:25 AM CDT PLASMA BASIC METABOLIC PANEL Routine 10/29/2013 12:36 AM CDT BLOOD CELL COUNT (CBC) Routine 4 12:36 AM CDT PLASMA BASIC METABOLIC PANEL Routine 10/28/2013 12:49 PM CDT XR CHEST 1 VIEW Routine 10/28/2013 1:05 AM CDT PLASMA BASIC METABOLIC PANEL Routine 10/28/2013 12:56 AM CDT BLOOD CELL COUNT (CBC) Routine 4 12:56 AM CDT BLOOD GAS, ARTERIAL Routine 10/28/2013 1 2:56 AM CDT AEROBIC CULTURE AND GRAM STAIN, CDR Routine 10/27/2013 5:21 PM CDT URINE (AEROBIC) CULTURE, CDR Routine 10/27/2013 5:19 PM CDT URINE MICROSCOPY Routine 10/27/2013 5:19 PM CDT URINALYSIS Routine 10/27/2013 5:19 PM CDT BLOOD CULTURE, CDR Routine 10/27/2013 5: 05 PM CDT BLOOD CULTURE, CDR Routine 10/27/2013 5: [address] HEAD WO CONTRAST Routine 10/27/2013 5 :47 AM CDT XR CHEST 1 VIEW Routine 10/27/2013 1:20 AM CDT BLOOD GAS, ARTERIAL Routine 10/27/2013 1 :11 AM CDT PLASMA COMPREHENSIVE METABOLIC PANEL Routine 10/27/2013 12:52 AM CDT BLOOD CELL COUNT (CBC) Routine 4 12:52 AM CDT ALL MICROBIOLOGY REPORT SECTION Routine 10/27/2013 12:00 AM CDT ALL MICROBIOLOGY REPORT SECTION Routine 10/27/2013 12:00 AM CDT ALL MICROBIOLOGY REPORT SECTION Routine 10/27/2013 12:00 AM CDT ALL MICROBIOLOGY REPORT SECTION Routine 10/27/2013 12:00 AM CDT XR CHEST 1 VIEW Routine 10/26/2013 1:02 AM CDT BLOOD GAS, ARTERIAL Routine 10/26/2013 1 2:56 AM CDT SERUM VANCOMYCIN, TROUGH DRUG LEVEL Routine 10/26/2013 12:51 AM CDT PLASMA PHOSPHORUS Routine 10/26/2013 12: 51 AM CDT PLASMA BASIC METABOLIC PANEL Routine 10/26/2013 12:51 AM CDT BLOOD CELL COUNT (CBC) Routine 4 12:51 AM CDT VASCULAR LABORATORY REPORT 10/26/2013 BLOOD CULTURE, CDR Routine 10/25/2013 6: 38 PM CDT AEROBIC CULTURE AND GRAM STAIN, CDR Routine 10/25/2013 6:38 PM CDT BLOOD CULTURE, CDR Routine 10/25/2013 6: 38 PM CDT URINE (AEROBIC) CULTURE, CDR Routine 10/25/2013 6:38 PM CDT URINE MICROSCOPY Routine 10/25/2013 6:38 PM CDT URINALYSIS Routine 10/25/2013 6:38 PM CDT PLASMA BASIC METABOLIC PANEL Routine 10/25/2013 9:22 AM CDT XR CHEST 1 VIEW Routine 10/25/2013 1:40 AM CDT BLOOD GAS, ARTERIAL Routine 10/25/2013 1 2:22 AM CDT SERUM MAGNESIUM Routine 10/25/2013 12:20 AM CDT PLASMA PHOSPHORUS Routine 10/25/2013 12: 20 AM CDT PLASMA BASIC METABOLIC PANEL Routine 10/25/2013 12:20 AM CDT BLOOD CELL COUNT (CBC) Routine 4 12:20 AM CDT ALL MICROBIOLOGY REPORT SECTION Routine 10/25/2013 12:00 AM CDT ALL MICROBIOLOGY REPORT SECTION Routine 10/25/2013 12:00 AM CDT ALL MICROBIOLOGY REPORT SECTION Routine 10/25/2013 12:00 AM CDT ALL MICROBIOLOGY REPORT SECTION Routine 10/25/2013 12:00 AM CDT PLASMA BASIC METABOLIC PANEL Routine 10/24/2013 4:40 PM CDT VRE SURVEILLANCE SCREEN, CDR Routine 10/24/2013 12:38 PM CDT CLOSTRIDIUM DIFFICILE TOXIN, CDR Routine 10/24/2013 12:38 PM CDT PLASMA BASIC METABOLIC PANEL Routine 10/24/2013 8:03 AM CDT SERUM MAGNESIUM Routine 10/24/2013 2:20 AM CDT PLASMA PHOSPHORUS Routine 10/24/2013 2:2 0 AM CDT PLASMA COMPREHENSIVE METABOLIC PANEL Routine 10/24/2013 2:20 AM CDT BLOOD CELL COUNT (CBC) Routine 4 2:20 AM CDT XR CHEST 1 VIEW Routine 10/24/2013 1:24 AM CDT ALL MICROBIOLOGY REPORT SECTION Routine 10/24/2013 12:00 AM CDT ALL MICROBIOLOGY REPORT SECTION Routine 10/24/2013 12:00 AM CDT BLOOD GAS, ARTERIAL Routine 10/23/2013 1 0:04 PM CDT PLASMA BASIC METABOLIC PANEL Routine 10/23/2013 8:38 PM CDT PLASMA BASIC METABOLIC PANEL Routine 10/23/2013 2:17 PM CDT SERUM OSMOLALITY Routine 10/23/2013 7:58 AM CDT PLASMA BASIC METABOLIC PANEL Routine 10/23/2013 7:58 AM CDT URINE (AEROBIC) CULTURE, [facility] Routine 10/22/2013 11:18 PM CDT BLOOD CULTURE, CDR Routine 10/22/2013 11 :18 PM CDT BLOOD CULTURE, CDR Routine 10/22/2013 11 :18 PM CDT AEROBIC CULTURE AND GRAM STAIN, CDR Routine 10/22/2013 11:18 PM CDT URINE MICROSCOPY Routine 10/22/2013 11:1 8 PM CDT URINALYSIS Routine 10/22/2013 11:18 PM CDT BLOOD GAS, ARTERIAL Routine 10/22/2013 1 1:18 PM CDT ABDOMINAL RADIOGRAPHY, FRONTAL (AP) Routine 10/22/2013 8:50 PM CDT XR CHEST 1 VIEW Routine 10/22/2013 8:50 PM CDT BLOOD GAS, ARTERIAL Routine 10/22/2013 8 :33 PM CDT SERUM MAGNESIUM Routine 10/22/2013 8:29 PM CDT PLASMA PROTHROMBIN TIME (PT) Routine 10/22/2013 8:29 PM CDT PLASMA PHOSPHORUS Routine 10/22/2013 8:2 9 PM CDT PLASMA PARTIAL THROMBOPLASTIN TIME (PTT) Routine 10/22/2013 8:29 PM CDT PLASMA COMPREHENSIVE METABOLIC PANEL Routine 10/22/2013 8:29 PM CDT BLOOD CELL COUNT (CBC) Routine 4 8:29 PM CDT BLOOD ABO, RH, INDIRECT AB SCREEN Routine 10/22/2013 8:29 PM CDT BLOOD GLUCOSE, POC Routine 10/22/2013 8: 23 PM CDT BLOOD GAS, POINT OF CARE, ARTERIAL Routine 10/22/2013 5:21 PM CDT BLOOD GLUCOSE, POC Routine 10/22/2013 2: 21 PM CDT SERUM OSMOLALITY Routine 10/22/2013 2:19 PM CDT PLASMA BASIC METABOLIC PANEL Routine 10/22/2013 2:19 PM CDT BLOOD GLUCOSE, POC Routine 10/22/2013 8: [address] HEAD WO CONTRAST Routine 10/22/2013 5 :15 AM CDT BLOOD GLUCOSE, POC Routine 10/22/2013 2: 05 AM CDT XR CHEST 1 VIEW Routine 10/22/2013 1:05 AM CDT PLASMA BASIC METABOLIC PANEL Routine 10/22/2013 12:13 AM CDT BLOOD CELL COUNT (CBC) Routine 4 12:13 AM CDT BLOOD GAS, ARTERIAL Routine 10/22/2013 1 2:13 AM CDT ALL MICROBIOLOGY REPORT SECTION Routine 10/22/2013 12:00 AM CDT ALL MICROBIOLOGY REPORT SECTION Routine 10/22/2013 12:00 AM CDT ALL MICROBIOLOGY REPORT SECTION Routine 10/22/2013 12:00 AM CDT ALL MICROBIOLOGY REPORT SECTION Routine 10/22/2013 12:00 AM CDT BLOOD GLUCOSE, POC Routine 10/21/2013 8: 23 PM CDT PLASMA BASIC METABOLIC PANEL Routine 10/21/2013 2:09 PM CDT BLOOD GLUCOSE, POC Routine 10/21/2013 1: 29 PM CDT BLOOD GLUCOSE, POC Routine 10/21/2013 8: 12 AM CDT XR CHEST 1 VIEW Routine 10/21/2013 8:11 AM CDT BLOOD GLUCOSE, POC Routine 10/21/2013 7: [address] HEAD WO CONTRAST Routine 10/21/2013 5 :24 AM CDT BLOOD GLUCOSE, POC Routine 10/21/2013 1: 28 AM CDT SERUM MAGNESIUM Routine 10/20/2013 11:21 PM CDT PLASMA BASIC METABOLIC PANEL Routine 10/20/2013 11:21 PM CDT BLOOD CELL COUNT (CBC) Routine 4 11:21 PM CDT BLOOD GAS, ARTERIAL Routine 10/20/2013 1 1:21 PM CDT BLOOD GLUCOSE, POC Routine 10/20/2013 7: 39 PM CDT XR CHEST 1 VIEW Routine 10/20/2013 7:04 PM CDT BLOOD CULTURE, CDR Routine 10/20/2013 4: 06 PM CDT BLOOD CULTURE, CDR Routine 10/20/2013 4: 06 PM CDT AEROBIC CULTURE AND GRAM STAIN, CDR Routine 10/20/2013 4:06 PM CDT BLOOD GLUCOSE, POC Routine 10/20/2013 2: 02 PM CDT URINE (AEROBIC) CULTURE, CDR Routine 10/20/2013 11:40 AM CDT XR CHEST 1 VIEW Routine 10/20/2013 9:50 AM CDT XR CONSULT OF OUTSIDE FILMS (PEDS ONLY) Routine 10/20/2013 8:37 AM CDT BLOOD GLUCOSE, POC Routine 10/20/2013 7: 38 AM CDT SERUM TROPONIN I Routine 10/20/2013 5:54 AM CDT BLOOD HEMOGLOBIN A1C Routine 10/20/2013 5:[address] HEAD WO CONTRAST Routine 10/20/2013 5 :26 AM CDT BLOOD GLUCOSE, POC Routine 10/20/2013 2: 28 AM CDT VASCULAR LABORATORY REPORT 10/20/2013 ALL MICROBIOLOGY REPORT SECTION Routine 10/20/2013 12:00 AM CDT ALL MICROBIOLOGY REPORT SECTION Routine 10/20/2013 12:00 AM CDT ALL MICROBIOLOGY REPORT SECTION Routine 10/20/2013 12:00 AM CDT ALL MICROBIOLOGY REPORT SECTION Routine 10/20/2013 12:00 AM CDT ABDOMINAL RADIOGRAPHY, FRONTAL (AP) Routine 10/19/2013 9:56 PM CDT XR CHEST 1 VIEW Routine 10/19/2013 9:56 PM CDT BLOOD CHECK SAMPLE Routine 10/19/2013 9: 00 PM CDT URINE MICROSCOPY Routine 10/19/2013 8:42 PM CDT SERUM TROPONIN I Routine 10/19/2013 8:42 PM CDT SERUM MAGNESIUM Routine 10/19/2013 8:42 PM CDT SERUM LIPID PANEL Routine 10/19/2013 8:4 2 PM CDT PLASMA PROTHROMBIN TIME (PT) Routine 10/19/2013 8:42 PM CDT PLASMA PHOSPHORUS Routine 10/19/2013 8: 42 PM CDT PLASMA PARTIAL THROMBOPLASTIN TIME (PTT) Routine 10/19/2013 8:42 PM CDT PLASMA COMPREHENSIVE METABOLIC PANEL Routine 10/19/2013 8:42 PM CDT URINALYSIS Routine 10/19/2013 8:42 PM CDT BLOOD CELL COUNT (CBC) Routine 4 8:42 PM CDT BLOOD GAS, ARTERIAL Routine 10/19/2013 8 :42 PM CDT BLOOD ABO, RH, INDIRECT AB SCREEN Routine 10/19/2013 8:42 PM CDT BLOOD GLUCOSE, POC Routine 10/19/2013 8: 33 PM CDT ELECTROCARDIOGRAPHY (ECG) 10/19/2013 ELECTROCARDIOGRAPHY (ECG) 10/19/2013 documented in this encounter Results * (ABNORMAL) Blood cell count (CBC) (11/12/2013 10:16 AM CDT) WBC 13.9(H) 3.8 - 9.8 K/cumm HISTORICAL RESULTS RBC 3.35(L) 4.50 - 5.70 M/cumm HISTORICAL RESULTS Hgb 11.3(L) 13.8 - 17.2 g/dl HISTORICAL RESULTS Hct 33.2(L) 40.7 - 50.3 % HISTORICAL RESULTS MCV 98.9(H) 80.0 - 97.6 fl HISTORICAL RESULTS MCH 33.8(H) 26.7 - 33.7 pg HISTORICAL RESULTS MCHC 34.2 32.7 - 35.5 g/dl HISTORICAL RESULTS Rdw 14.4 11.8 - 14.6 % HISTORICAL RESULTS Platelets 392 140 - 440 K/cumm HISTORICAL RESULTS MPV 8.1 6.8 - 10.4 fl HISTORICAL RESULTS Neutrophils 83.0(H) 38.7 - 74.5 % HISTORICAL RESULTS Lymphocytes 6.4(L) 20.0 - 54.3 % HISTORICAL RESULTS Monos 7.1 4.3 - 13.5 % HISTORICAL RESULTS Eosinophils 3.2 0.0 - 6.0 % HISTORICAL RESULTS Basophils 0.3 0.0 - 3.0 % HISTORICAL RESULTS Neutrophils, abs 11.5(H) 1.8 - 6.6 K/cumm HISTORICAL RESULTS Lymphocytes, abs 0.9(L) 1.2 - 3.3 K/cumm HISTORICAL RESULTS Monocytes, absolute 1.0 0.2 - 1.2 K/cumm HISTORICAL RESULTS Eosinophils, abs 0.4 0.0 - 0.5 K/cumm HISTORICAL RESULTS Basophils, abs 0.0 0.0 - 0.2 K/cumm HISTORICAL RESULTS Blood specimen (specimen) 11/12/2013 10:16 AM CDT us Marion Funes MD LAB BLOOD ORDERABLES Myrna l Result HISTORICAL RESULTS * XR Chest 1 View (11/12/2013 8:25 AM CDT) Anatomical Region Laterality Modality Body, Chest N/A Radiographic Tawanna ging 11/12/2013 8:25 AM CDT Narrative 11/12/2013 10:20 AM CDT FIDEL PEREIRA M.D. JANNIE MARRERO M.D. FINAL REPORT The radiology attending physician has personally reviewed this study, and has reviewed and/or edited this written report and agrees with it. ACC# ??Date Time ??Exam [id number] Nov 12, 2013 08:25:00 [id number] Chest 1 view Frontal EXAMINATION: ?Chest 1 view ?? IMPRESSION: ?Comparison is made to the chest radiograph dated 11/10/2013. Interval improvement in mild bibasilar opacities likely representing resolving pneumonia or aspiration pneumonitis. No pulmonary edema, pleural effusion, or pneumothorax. The cardiomediastinal silhouette is stable . ?? Requested By: MARION FUNES M.D. Dictated By: ?? JANNIE MARRERO M.D. ??on Nov 12 2013 ??9:35A This document has been electronically signed by: FIDEL PEREIRA M.D. on Nov 12 2013 10:20A Procedure Note Provider, Mirna, - 07/28/2016 FIDEL PEREIRA M.D. JANNIE MARRERO M.D. FINAL REPORT The radiology attending physician has personally reviewed this study, and has reviewed and/or edited this written report and agrees with it. ACC# Date Time Exam [id number] Nov 12, 2013 08:25:00 [id number] Chest 1 view Frontal EXAMINATION: Chest 1 view IMPRESSION: Comparison is made to the chest radiograph dated 11/10/2013. Interval improvement in mild bibasilar opacities likely representing resolving pneumonia or aspiration pneumonitis. No pulmonary edema, pleural effusion, or pneumothorax. The cardiomediastinal silhouette is stable . Requested By: MARION FUNES M.D. Dictated By: JANNIE MARRERO M.D. on Nov 12 2013 9:35A This document has been electronically signed by: FIDEL PEREIRA M.D. on Nov 12 2013 10:20A Historical Provider IMG XR PROCEDURES Final R esult * (ABNORMAL) Urine microscopy (11/12/2013 5:57 AM CDT) RBC, ur 3 0 - 3 /hpf HISTORICA L RESULTS WBC, ur 6(H) 0 - 5 /hpf HISTORICA L RESULTS Bacteria, ur Negative Trace HISTORI SHALA RESULTS Epithelial cells, renal, ur 0 0 - 0 /hpf HISTORICAL RESULTS Epithelial cells, squamous, ur 2 /lpf HISTORICAL RESULTS Mucus, ur Small /hpf HISTORICAL RESULTS Urine 11/12/2013 5:57 AM CDT Sandra Cruz MD LAB BLOOD ORDERABLES Final Resul t HISTORICAL RESULTS * Clostridium difficile toxin (11/12/2013 5:57 AM CDT) Stool (Unknown) 11/12/2013 5 :57 AM CDT 11/12/2013 7:36 AM CDT Narrative HISTORICAL RESULTS - 11/13/2013 2:13 AM CDT Positive for: Clostridium difficile toxin. Historical Provider LAB MICROBIOLOGY - GENERA L ORDERABLES Final Result HISTORICAL RESULTS * Urine (aerobic) culture (11/12/2013 5:57 AM CDT) Urine, bladder (Unknown) 11/12/2013 5:57 AM CDT 11/12/2013 7:36 AM CDT Narrative HISTORICAL RESULTS - 11/13/2013 8:17 AM CDT No growth Historical Provider LAB MICROBIOLOGY - GENERA L ORDERABLES Final Result Performing Organization Address [facility] Co de Phone Number HISTORICAL RESULTS * Vancomycin-resistant enterococcus (VRE) surveillance screen (11/12/2013 5:56 AM CDT) Stool (Unknown) 11/12/2013 5 :56 AM CDT 11/13/2013 1:42 AM CDT Impressions HISTORICAL RESULTS - 11/14/2013 3:02 PM CDT This test is for Infection prevention surveillance; no charge to patient. Current interpretive data was last revised on 2011. Narrative HISTORICAL RESULTS - 11/14/2013 3:02 PM CDT Enterococcus species, vancomycin resistant Historical Provider LAB MICROBIOLOGY - GENERA L ORDERABLES Final Result Performing Organization Address [facility] de Phone Number HISTORICAL RESULTS * Plasma basic metabolic panel (11/12/2013 2:52 AM CDT) Sodium 137 135 - 145 mmol/L HISTORICAL RESULTS K, pl 3.4 3.3 - 4.9 mmol/L HISTORICAL RESULTS Chloride 99 97 - 110 mmol/L HISTORICAL RESULTS CO2 26 22 - 32 mmol/L HISTORICAL RESULTS A. gap 12 0 - 16 mmol/L HISTORICAL RESULTS Glucose 194 70 - 199 mg/dl HISTORICAL RESULTS BUN 24 8 - 25 mg/dl HISTORICAL RESULTS Creatinine 0.90 0.70 - 1.30 mg/dl HISTORICAL RESULTS Calcium 9.1 8.6 - 10.3 mg/dl HISTORICAL RESULTS Plasma 11/12/2013 2:52 AM CDT Mirela Wilder MD PhD LAB BLOOD ORDERABL ES Final Result Performing Organization Address [facility] Co de Phone Number HISTORICAL RESULTS * Discharge Laboratory Cumulative Report (11/12/2013 12:00 AM CDT) 11/12/2013 Narrative HISTORICAL RESULTS - 11/14/2013 3:24 PM CDT ?[facility] ?Department of Laboratories ? [facility] [place] ? [place] [address] [id number] Patient Name: ??CURLY ANGELO Rec Number: [id number] Fin Number: ?[id number] Date: ?1955 Sex/Age: ? Male 58 years Admit Date: ?10/19/2013 Discharge Date: 11/12/2013 Doctor: ?Sherron Mahan Facility: ?[facility] Location: ?[id number] Chart Printed: 11/14/2013 15:24 ?? * Abnormal ?? C Critical ?? f Footnote ?? ^ Corrected ?? L Low ?? H High ? i Interp Data ?? @ Reference Lab ?Chart Type:Cumulative ?BLOOD GASES ? Arterial Blood Gases ?Test: pH ? pCO2 ? pO2 ? Total CO2 ? Reference: [7.35-7.45] ??[35-45] ??[80-105] ??[21-30] ? Units: ?mmHg ? mmHg ?mmol/L 10/29/2013 ?? 06:41:00 ?? 7.48 ??H ?34 ??L ?82 ?10/28/2013 ?? 00:56:00 ?? 7.48 ??H ?35 ? 101 ? 27 10/27/2013 ?? 01:11:00 ?? 7.48 ??H ?34 ??L ?90 ?10/26/2013 ?? 00:56:00 ?? 7.45 ? 34 ??L ?94 ?10/25/2013 ?? 00:22:00 ?? 7.43 ? 35 ? 112 ??H ?10/23/2013 ?? 22:04:00 ?? 7.46 ??H ?34 ??L ?103 ? 10/22/2013 ?? 23:18:00 ?? 7.46 ??H ?33 ??L ?152 ??H ?10/22/2013 ?? 20:33:00 ?? 7.37 ? 43 ? 77 ??L ? 10/22/2013 ?? 00:13:00 ?? 7.44 ? 33 ??L ?109 ??H ?10/20/2013 ?? 23:21:00 ?? 7.47 ??H ?33 ??L ?77 ??L ? 10/19/2013 ?? 20:42:00 ?? 7.43 ? 39 ? 256 ??H ?26 ?Test: A-a Gradient ?% iO2 Art ? Vol iO2 Art ? Reference: ? Units: mmHg ?% ? L 10/29/2013 ?? 06:41:00 ?? Not Applicable ??Not Applicable ??4.0 10/28/2013 ?? 00:56:00 ?? 142 ? 40 ?Not Applicable 10/27/2013 ?? 01:11:00 ?? 154 ? 40 ?Not Applicable 10/26/2013 ?? 00:56:00 ?? 151 ? 40 ?Not Applicable 10/25/2013 ?? 00:22:00 ?? 131 ? 40 ?Not Applicable 10/23/2013 ?? 22:04:00 ?? 139 ? 40 ?Not Applicable 10/22/2013 ?? 23:18:00 ?? Not Applicable ??Not Applicable ??Not Applicable 10/22/2013 ?? 20:33:00 ?? Not Applicable ??Not Applicable ??Not Applicable 10/22/2013 ?? 00:13:00 ?? 135 ? 40 ?Not Applicable 10/20/2013 ?? 23:21:00 ?? 168 ? 40 ?Not Applicable 10/19/2013 ?? 20:42:00 ?? Not Applicable ??40 ?Not Applicable ? SELECTED ELECTROLYTES ?Test: Sodium ? Plasma Potassium ??Chloride ? Reference: [135-145] ??[3.3-4.9] ? [97-110] ? Units: mmol/L ? mmol/L ?mmol/L 11/12/2013 ?? 02:52:00 ?? 137 ?3.4 ? 99 11/11/2013 ?? 02:24:00 ?? 142 ?3.5 ? 101 11/09/2013 ?? 09:47:00 ?? 139 ?3.8 ? 95 ??L 11/05/2013 ?? 18:30:00 ?? 137 ?3.7 ? 100 11/05/2013 ?? 07:39:00 ?? 138 ?3.7 ? 101 11/04/2013 ?? 00:47:00 ?? 142 ?4.0 ? 107 11/03/2013 ?? 02:09:00 ?? 138 ?4.3 ??f ?103 11/02/2013 ?? 02:54:00 ?? 140 ?4.2 ? 105 11/01/2013 ?? 00:16:00 ?? 138 ?3.8 ? 103 10/31/2013 ?? 00:21:00 ?? 137 ?3.7 ? 103 10/30/2013 ?? 02:08:00 ?? 139 ?3.8 ? 105 10/29/2013 ?? 00:36:00 ?? 139 ?See Comment ??f ?105 10/28/2013 ?? 12:49:00 ?? 140 ?4.0 ? 103 10/28/2013 ?? 00:56:00 ?? 142 ?3.8 ? 105 10/27/2013 ?? 00:52:00 ?? 146 ??H ? 3.6 ? 110 10/26/2013 ?? 00:51:00 ?? 151 ??H ? 4.1 ? 116 ??H 10/25/2013 ?? 09:22:00 ?? 149 ??H ? 3.8 ? 114 ??H 10/25/2013 ?? 00:20:00 ?? 151 ??H ? 3.8 ? 118 ??H 10/24/2013 ?? 16:40:00 ?? 152 ??H ? 3.3 ? 118 ??H 10/24/2013 ?? 08:03:00 ?? 151 ??H ? 3.5 ? 116 ??H 10/24/2013 ?? 02:20:00 ?? 150 ??H ? 3.4 ? 116 ??H 10/23/2013 ?? 20:38:00 ?? 149 ??H ? 3.6 ? 115 ??H 10/23/2013 ?? 14:17:00 ?? 145 ?3.4 ? 112 ??H 10/23/2013 ?? 07:58:00 ?? 147 ??H ? 3.7 ? 110 10/22/2013 ?? 20:29:00 ?? 141 ?4.4 ? 108 10/22/2013 ?? 14:19:00 ?? 139 ?3.8 ? 104 10/22/2013 ?? 00:13:00 ?? 138 ?3.9 ? 106 10/21/2013 ?? 14:09:00 ?? 140 ?4.1 ? 108 10/20/2013 ?? 23:21:00 ?? 141 ?3.4 ? 109 10/19/2013 ?? 20:42:00 ?? 143 ?3.8 ? 106 11/03/2013 02:09:00 ??Plasma Potassium: Hemolyzed; (+++); potassium value may be falsely elevated by as much as 0.6 - 1.0 mmol/L. Suggest redraw and reanalysis. 10/29/2013 00:36:00 ??Plasma Potassium: CRDT; Grossly Hemolyzed sample; Unable to test. ?Test: Total CO2 ??Osmolality ??Anion Gap ? Reference: [22-32] ?[275-300] ?? [0-16] ? Units: mmol/L ? mOsm/kg ? mmol/L 11/12/2013 ?? 02:52:00 ?? 26 ? 12 11/11/2013 ?? 02:24:00 ?? 31 ? 10 11/09/2013 ?? 09:47:00 ?? 31 ? 13 11/05/2013 ?? 18:30:00 ?? 22 ? 15 11/05/2013 ?? 07:39:00 ?? 22 ? 15 11/04/2013 ?? 00:47:00 ?? 24 ? 11 11/03/2013 ?? 02:09:00 ?? 21 ??L ?14 11/02/2013 ?? 02:54:00 ?? 23 ? 12 11/01/2013 ?? 00:16:00 ?? 23 ? 12 10/31/2013 ?? 00:21:00 ?? 22 ? 12 10/30/2013 ?? 02:08:00 ?? 27 ? 7 10/29/2013 ?? 00:36:00 ?? 25 ? 9 10/28/2013 ?? 12:49:00 ?? 25 ? 12 10/28/2013 ?? 00:56:00 ?? 28 ? 9 ? SELECTED ELECTROLYTES ?Test: Total CO2 ??Osmolality ??Anion Gap ? Reference: [22-32] ?[275-300] ?? [0-16] ? Units: mmol/L ? mOsm/kg ? mmol/L 10/27/2013 ?? 00:52:00 ?? 27 ? 9 10/26/2013 ?? 00:51:00 ?? 27 ? 8 10/25/2013 ?? 09:22:00 ?? 24 ? 11 10/25/2013 ?? 00:20:00 ?? 25 ? 8 10/24/2013 ?? 16:40:00 ?? 25 ? 9 10/24/2013 ?? 08:03:00 ?? 25 ? 10 10/24/2013 ?? 02:20:00 ?? 23 ? 11 10/23/2013 ?? 20:38:00 ?? 23 ? 11 10/23/2013 ?? 14:17:00 ?? 22 ? 11 10/23/2013 ?? 07:58:00 ?? 24 ? 308 ??H ?13 10/22/2013 ?? 20:29:00 ?? 26 ? 7 10/22/2013 ?? 14:19:00 ?? 25 ? 295 ? 10 10/22/2013 ?? 00:13:00 ?? 23 ? 9 10/21/2013 ?? 14:09:00 ?? 24 ? 8 10/20/2013 ?? 23:21:00 ?? 25 ? 7 10/19/2013 ?? 20:42:00 ?? 25 ? 12 ? Whole Blood Electrolytes ?Test: Whole Blood Potassium ? Reference: [3.3-4.9] ? Units: mmol/L 10/29/2013 ?? 03:25:00 ?? 4.6 ??f 10/29/2013 03:25:00 ??Whole Blood Potassium: Hemolyzed; potassium value may be falsely elevated by as much as 0.3 - 0.5 mmol/L. Suggest redraw and reanalysis. ? STANDARD BLOOD CHEMISTRY ?Test: BUN ? Creatinine ?? Total Bilirubin ??Glucose ? Reference: [8-25] ??[0.70-1.30] ??[0.3-1.1] ?[70- 199] ? Units: mg/dL ?? mg/dL ?mg/dL ?mg/dL 11/12/2013 ?? 02:52:00 ?? 24 ?0.90 ?194 11/11/2013 ?? 02:24:00 ?? 30 ??H ?? 0.90 ?113 11/09/2013 ?? 09:47:00 ?? 42 ??H ?? 1.11 ?135 11/05/2013 ?? 18:30:00 ?? 27 ??H ?? 0.96 ?97 11/05/2013 ?? 07:39:00 ?? 23 ?0.94 ?117 11/04/2013 ?? 00:47:00 ?? 18 ?0.91 ? 0.4 ?98 11/03/2013 ?? 02:09:00 ?? 20 ?0.85 ?97 11/02/2013 ?? 02:54:00 ?? 21 ?0.92 ?119 11/01/2013 ?? 00:16:00 ?? 27 ??H ?? 1.03 ?128 10/31/2013 ?? 00:21:00 ?? 25 ?0.88 ? 0.3 ?157 10/30/2013 ?? 02:08:00 ?? 24 ?0.92 ?132 10/29/2013 ?? 00:36:00 ?? 21 ?0.92 ?122 10/28/2013 ?? 12:49:00 ?? 22 ?0.90 ?111 10/28/2013 ?? 00:56:00 ?? 24 ?0.95 ?153 10/27/2013 ?? 00:52:00 ?? 26 ??H ?? 1.02 ? 0.3 ?152 10/26/2013 ?? 00:51:00 ?? 24 ?1.07 ?114 10/25/2013 ?? 09:22:00 ?? 24 ?0.90 ?158 ? STANDARD BLOOD CHEMISTRY ?Test: BUN ? Creatinine ?? Total Bilirubin ??Glucose ? Reference: [8-25] ??[0.70-1.30] ??[0.3-1.1] ?[70- 199] ? Units: mg/dL ?? mg/dL ?mg/dL ?mg/dL 10/25/2013 ?? 00:20:00 ?? 26 ??H ?? 1.09 ?146 10/24/2013 ?? 16:40:00 ?? 24 ?1.16 ?151 10/24/2013 ?? 08:03:00 ?? 23 ?1.08 ?171 10/24/2013 ?? 02:20:00 ?? 23 ?1.34 ??H ?0.4 ?137 10/23/2013 ?? 20:38:00 ?? 21 ?1.16 ?184 10/23/2013 ?? 14:17:00 ?? 19 ?1.10 ?202 ??H 10/23/2013 ?? 07:58:00 ?? 16 ?1.05 ?157 10/22/2013 ?? 20:29:00 ?? 13 ?1.15 ? 0.4 ?128 10/22/2013 ?? 14:19:00 ?? 13 ?1.00 ?134 10/22/2013 ?? 00:13:00 ?? 13 ?0.96 ?158 10/21/2013 ?? 14:09:00 ?? 11 ?1.08 ?147 10/20/2013 ?? 23:21:00 ?? 12 ?1.05 ?133 10/19/2013 ?? 20:42:00 ?? 15 ?1.26 ? 0.5 ?108 ?Test: Magnesium ??Total Calcium ??Plasma Phosphorus ? Reference: [1.4-2.5] ??[8.6-10.3] ? [2.3-4.3] ? Units: mg/dL ?mg/dL ?mg/dL 11/12/2013 ?? 02:52:00 ?9.1 11/11/2013 ?? 02:24:00 ?? 1.7 ?9.0 ?3.6 11/09/2013 ?? 09:47:00 ?? 1.8 ?10.3 ? 5.7 ??H 11/05/2013 ?? 18:30:00 ?? 1.9 ?9.7 ?5.7 ??H 11/05/2013 ?? 07:39:00 ?? 1.7 ?10.2 ? 5.4 ??H 11/04/2013 ?? 00:47:00 ?? 1.9 ?9.4 ?4.9 ??H 11/03/2013 ?? 02:09:00 ?9.6 11/02/2013 ?? 02:54:00 ?9.5 11/01/2013 ?? 00:16:00 ?9.0 10/31/2013 ?? 00:21:00 ?? 2.0 ?9.5 ?4.0 10/30/2013 ?? 02:08:00 ?9.0 10/29/2013 ?? 00:36:00 ?9.3 10/28/2013 ?? 12:49:00 ?9.4 10/28/2013 ?? 00:56:00 ?8.9 10/27/2013 ?? 00:52:00 ?8.8 10/26/2013 ?? 00:51:00 ?9.0 10/26/2013 ?? 00:51:00 ? 3.3 10/25/2013 ?? 09:22:00 ?8.7 10/25/2013 ?? 00:20:00 ?? 2.2 ?9.1 ?1.8 ??L 10/24/2013 ?? 16:40:00 ?8.8 10/24/2013 ?? 08:03:00 ?9.0 10/24/2013 ?? 02:20:00 ?? 2.3 ?8.9 ?1.9 ??L 10/23/2013 ?? 20:38:00 ?8.8 10/23/2013 ?? 14:17:00 ?8.6 10/23/2013 ?? 07:58:00 ?8.7 10/22/2013 ?? 20:29:00 ?? 2.0 ?8.2 ??L ? 4.6 ??H 10/22/2013 ?? 14:19:00 ?9.0 10/22/2013 ?? 00:13:00 ?8.7 10/21/2013 ?? 14:09:00 ?8.6 10/20/2013 ?? 23:21:00 ?? 1.8 ?8.4 ??L 10/19/2013 ?? 20:42:00 ?? 1.5 ?8.8 ?4.1 ?Test: Plasma Total Protein ??Albumin ? Reference: [6.5-8.5] ? [3.6-5.0] ? Units: g/dL ?g/dL 11/04/2013 ?? 00:47:00 ?? 7.5 ? 3.4 ??L 10/31/2013 ?? 00:21:00 ?? 7.5 ? 3.3 ??L ? STANDARD BLOOD CHEMISTRY ?Test: Plasma Total Protein ??Albumin ? Reference: [6.5-8.5] ? [3.6-5.0] ? Units: g/dL ?g/dL 10/27/2013 ?? 00:52:00 ?? 7.3 ? 3.2 ??L 10/24/2013 ?? 02:20:00 ?? 7.5 ? 3.5 ??L 10/22/2013 ?? 20:29:00 ?? 7.0 ? 3.4 ??L 10/19/2013 ?? 20:42:00 ?? 7.5 ? 3.9 ?GLYCATED HEMOGLOBIN TESTING ?Test: Hemoglobin A1C ??Est Average Glucose ? Reference: [4.0-6.0] ? Units: % ? mg/dL 10/20/2013 ?? 05:54:00 ?? 5.5 ? 111 ??f 10/20/2013 05:54:00 ??Est Average Glucose: The ADA recommends reporting an estimated Average Glucose (eAG) with all Hemoglobin A1c results using the equation derived from a study of 507 normal and diabetic adults. ??Minority populations were underrepresented and children were not included. ??(Diabetes Care 31:0227-4664, 2008). ??The eAG is not equivalent to a fasting glucose. ?LIPIDS ?Test: Total Cholesterol i ??HDL Cholesterol i ? Reference: [0-200] ?[40-199] ? Units: mg/dL ?mg/dL 10/19/2013 ?? 20:42:00 ?? 106 ?20 ??L 10/19/2013 20:42:00 Total Cholesterol: Interpretive Data Desirable: ?<200 mg/dL Borderline high: ??200-239 mg/dL High: ? >240 mg/dL Literature Reference: National Cholesterol Education Program (NCEP) Expert Panel on Detection, Evaluation, and Treatment of High Blood Cholesterol in Adults (Adult Treatment Panel III). ??Circulation 2004; 110:227. Current interpretive data was last revised on 2005. 10/19/2013 20:42:00 HDL Cholesterol: Interpretive Data Less than 40 mg/dL - low; A major risk factor for heart disease. Greater than or equal to 60 mg/dL - High; ??considered protective of heart disease. Literature Reference: See Cholesterol Current interpretive data was last revised on 2007. ?LIPIDS ?Test: Triglycerides i ??LDL Chol (Calc) i ? Reference: [0-150] ?[0-129] ? Units: mg/dL ?mg/dL 10/19/2013 ?? 20:42:00 ?? 142 ?58 10/19/2013 20:42:00 Triglycerides: Interpretive Data Desirable: ? < 150 mg/dL Borderline High: ? 150 - 199 mg/dL High: ?> 200 mg/dL Literature Reference: See Cholesterol Current interpretive data was last revised on 06. 10/19/2013 20:42:00 LDL Chol (Calc): Interpretive Data Optimal: ? < 100 mg/dL Near Optimal: ?100 - 129 mg/dL Borderline High: ?? 130 - 159 mg/dL High: ?> 160 mg/dL Literature Reference: See Cholesterol Current interpretive data was last revised on 06. ?Test: non-HDL Cholesterol i ? Reference: ? Units: mg/dL 10/19/2013 ?? 20:42:00 ?? 86 10/19/2013 20:42:00 non-HDL Cholesterol: Interpretive Data When triglycerides are >200 mg/dL, non-HDL C is a secondary target of therapy, with a goal 30 mg/dL higher than the identified LDL-C goal. Reference: ??See Cholesterol Reference. Current interpretive data was last revised 2011. ?ENZYMES ?Test: Alkaline Phosphatase ??ALT ?AST ? Reference: [38-126] ?[7-53] ?? [11-47] ? Units: Units/L ? Units/L ??Units/L 11/04/2013 ?? 00:47:00 ?? 66 ?45 ? 40 10/31/2013 ?? 00:21:00 ?? 58 ?67 ??H ?56 ??H 10/27/2013 ?? 00:52:00 ?? 57 ?80 ??H ?54 ??H 10/24/2013 ?? 02:20:00 ?? 50 ?29 ? 37 10/22/2013 ?? 20:29:00 ?? 52 ?30 ? 30 10/19/2013 ?? 20:42:00 ?? 29 ??L ? 21 ? 25 ? CARDIAC PROTEINS ?Test: Troponin I i ? Reference: [0.00-0.03] ? Units: ng/mL 10/20/2013 ?? 05:54:00 ?? 0.07 ??H 10/19/2013 ?? 20:42:00 ?? 0.22 ??Cf 10/19/2013 20:42:00 Troponin I: Interpretive Data Serial determinations are recommended for the diagnosis of myocardial infarction (Third [place] Definition of Myocardial Infarction. ??J Am Mary Cardiol 2012;60:1581-98). Current interpretive data was last revised on 13. 10/19/2013 20:42:00 ??Troponin I: Critical result called to [facility]) on 10/19/2013 21:23:16 CDT by neil. ? [facility] ?Test: Vancomycin, Tr i ? Reference: [10.0-20.9] ? Units: mcg/mL 10/26/2013 ?? 00:51:00 ?? 13.4 10/26/2013 00:51:00 Vancomycin, Tr: Interpretive Data Therapeutic Range: ?? Uncomplicated skin and soft tissue infections: 10-20 mcg/mL ?? All other infections: ??15-20 mcg/mL Current interpretive data was last revised on 12. ?URINALYSIS ?Macroscopic ?Test: Color ? Clarity ?Specific [place] ? Reference: [Yellow] ??[Clear] ?[1.003-1.030] ? Units: 11/10/2013 ?? 10:21:00 ?? Yellow ?Clear ?1.024 10/27/2013 ?? 17:19:00 ?? Yellow ?Clear ?1.019 10/25/2013 ?? 18:38:00 ?? Yellow ?Clear ?1.017 10/22/2013 ?? 23:18:00 ?? Yellow ?Clear ?1.020 10/19/2013 ?? 20:42:00 ?? Yellow ?Cloudy ??* ??1.018 ?Test: pH ? Albumin ?? Glucose ? Ketones ? Reference: [5.0-8.0] ??[Trace] ?? [Negative] ??[Negative] ? Units: 11/10/2013 ?? 10:21:00 ?? 6.0 ?Negative ??Negative ?Negative 10/27/2013 ?? 17:19:00 ?? 5.0 ?Negative ??Negative ?Negative 10/25/2013 ?? 18:38:00 ?? 5.0 ?Negative ??Negative ?Negative 10/22/2013 ?? 23:18:00 ?? 8.0 ?1+ ??* ? Negative ?Negative 10/19/2013 ?? 20:42:00 ?? 6.0 ?Negative ??Negative ?Negative ?URINALYSIS ?Macroscopic ?Test: Bilirubin ?? Blood ? Urobilinogen ? Reference: [Negative] ??[Negative] ??[0.0-2.0] ? Units: ? mg/dL 11/10/2013 ?? 10:21:00 ?? Negative ?Negative ?<2.0 10/27/2013 ?? 17:19:00 ?? Negative ?Negative ?<2.0 10/25/2013 ?? 18:38:00 ?? Negative ?1+ ??* ? <2.0 10/22/2013 ?? 23:18:00 ?? Negative ?1+ ??* ? <2.0 10/19/2013 ?? 20:42:00 ?? Negative ?2+ ??* ? 4.0 ??H ?Test: Nitrite ? Leuk Esterase ? Reference: [Negative] ??[Negative] ? Units: 11/10/2013 ?? 10:21:00 ?? Negative ?Negative 10/27/2013 ?? 17:19:00 ?? Negative ?Negative 10/25/2013 ?? 18:38:00 ?? Negative ?Negative 10/22/2013 ?? 23:18:00 ?? Negative ?Negative 10/19/2013 ?? 20:42:00 ?? Negative ?2+ ??* ?Microscopic ?Test: Epithl Squam ??Mucus Thrds ??RBC Ur ??WBC Ur ? Reference: ?[0-3] ?? [0-5] ? Units: /LPF ?/HPF ? /HPF ?/HPF 11/12/2013 ?? 05:57:00 ?? 2 ? Small ?3 ? 6 ??H 10/27/2013 ?? 17:19:00 ?? 4 ? Small ?2 ? 2 10/25/2013 ?? 18:38:00 ? Small ?15 ??H ?? 3 10/22/2013 ?? 23:18:00 ?1 ? 3 10/19/2013 ?? 20:42:00 ?? 9 ? Small ?35 ??H ?? 13 ??H ?Test: Bacteria Ur ??Epithl Renl Ur ??Hyaline Cast ? Reference: [Trace] ?[0-0] ? [0-0] ? Units: ?/HPF ?/LPF 11/12/2013 ?? 05:57:00 ?? Negative ? 0 10/27/2013 ?? 17:19:00 ?? Negative ? 0 10/25/2013 ?? 18:38:00 ?? Trace ?0 ? 2 ??H 10/22/2013 ?? 23:18:00 ?? Negative ? 0 10/19/2013 ?? 20:42:00 ?? Negative ? 0 ? 1 ??H ? COMPLETE BLOOD COUNT ?Test: WBC ?RBC ?Hgb ? Reference: [3.8-9.8] ??[4.50-5.70] ??[13.8-17.2] ? Units: K/cumm ? M/cumm ? g/dL 11/12/2013 ?? 10:16:00 ?? 13.9 ??H ?3.35 ??L ?11.3 ??L 11/11/2013 ?? 02:24:00 ?? 10.1 ??H ?2.99 ??L ?9.9 ??L 11/09/2013 ?? 09:47:00 ?? 17.1 ??H ?3.64 ??L ?12.2 ??L 11/04/2013 ?? 00:47:00 ?? 12.5 ??H ?3.02 ??L ?10.0 ??L 11/03/2013 ?? 02:09:00 ?? 16.9 ??H ?2.98 ??L ?9.9 ??L 11/02/2013 ?? 02:54:00 ?? 13.3 ??H ?2.94 ??L ?9.8 ??L 11/01/2013 ?? 00:16:00 ?? 15.3 ??H ?2.93 ??L ?9.8 ??L 10/31/2013 ?? 00:21:00 ?? 15.6 ??H ?2.92 ??L ?9.6 ??L 10/30/2013 ?? 02:08:00 ?? 14.9 ??H ?2.64 ??L ?8.8 ??L ? COMPLETE BLOOD COUNT ?Test: WBC ?RBC ?Hgb ? Reference: [3.8-9.8] ??[4.50-5.70] ??[13.8-17.2] ? Units: K/cumm ? M/cumm ? g/dL 10/29/2013 ?? 00:36:00 ?? 15.6 ??H ?2.77 ??L ?9.2 ??L 10/28/2013 ?? 00:56:00 ?? 11.7 ??H ?2.50 ??L ?8.2 ??L 10/27/2013 ?? 00:52:00 ?? 12.9 ??H ?2.53 ??L ?8.5 ??L 10/26/2013 ?? 00:51:00 ?? 14.5 ??H ?2.70 ??L ?9.1 ??L 10/25/2013 ?? 00:20:00 ?? 15.6 ??H ?2.63 ??L ?8.8 ??L 10/24/2013 ?? 02:20:00 ?? 14.7 ??H ?2.69 ??L ?9.3 ??L 10/22/2013 ?? 20:29:00 ?? 13.5 ??H ?2.74 ??L ?9.3 ??L 10/22/2013 ?? 00:13:00 ?? 14.6 ??H ?2.91 ??L ?9.9 ??L 10/20/2013 ?? 23:21:00 ?? 15.0 ??H ?3.01 ??L ?10.5 ??L 10/19/2013 ?? 20:42:00 ?? 14.3 ??H ?3.51 ??L ?12.0 ??L ?Test: Hct ?Platelet Ct ??MCV ? Reference: [40.7-50.3] ??[140-440] ?[80.0-97.6] ? Units: % ?K/cumm ? fL 11/12/2013 ?? 10:16:00 ?? 33.2 ??L ?392 ?98.9 ??H 11/11/2013 ?? 02:24:00 ?? 29.8 ??L ?449 ??H ? 99.7 ??H 11/09/2013 ?? 09:47:00 ?? 35.9 ??L ?597 ??H ? 98.5 ??H 11/04/2013 ?? 00:47:00 ?? 29.5 ??L ?722 ??H ? 97.7 ??H 11/03/2013 ?? 02:09:00 ?? 28.9 ??L ?616 ??H ? 96.8 11/02/2013 ?? 02:54:00 ?? 28.4 ??L ?619 ??H ? 96.4 11/01/2013 ?? 00:16:00 ?? 29.2 ??L ?617 ??H ? 99.8 ??H 10/31/2013 ?? 00:21:00 ?? 28.3 ??L ?583 ??H ? 97.1 10/30/2013 ?? 02:08:00 ?? 25.6 ??L ?548 ??H ? 97.2 10/29/2013 ?? 00:36:00 ?? 26.8 ??L ?560 ??H ? 96.8 10/28/2013 ?? 00:56:00 ?? 24.3 ??L ?443 ??H ? 97.2 10/27/2013 ?? 00:52:00 ?? 24.7 ??L ?490 ??H ? 97.8 ??H 10/26/2013 ?? 00:51:00 ?? 26.8 ??L ?487 ??H ? 99.6 ??H 10/25/2013 ?? 00:20:00 ?? 26.1 ??L ?443 ??H ? 99.0 ??H 10/24/2013 ?? 02:20:00 ?? 26.7 ??L ?473 ??H ? 99.4 ??H 10/22/2013 ?? 20:29:00 ?? 27.4 ??L ?403 ?100.0 ??H 10/22/2013 ?? 00:13:00 ?? 28.7 ??L ?314 ?98.7 ??H 10/20/2013 ?? 23:21:00 ?? 29.5 ??L ?297 ?98.1 ??H 10/19/2013 ?? 20:42:00 ?? 34.9 ??L ?364 ?99.3 ??H ?Test: MCH ?MCHC ? RDW ? Reference: [26.7-33.7] ??[32.7-35.5] ??[11.8-14.6] ? Units: pg ? g/dL ? % 11/12/2013 ?? 10:16:00 ?? 33.8 ??H ?34.2 ? 14.4 11/11/2013 ?? 02:24:00 ?? 33.2 ? 33.3 ? 14.1 11/09/2013 ?? 09:47:00 ?? 33.5 ? 34.0 ? 14.3 11/04/2013 ?? 00:47:00 ?? 33.1 ? 33.9 ? 13.6 11/03/2013 ?? 02:09:00 ?? 33.3 ? 34.5 ? 13.7 11/02/2013 ?? 02:54:00 ?? 33.4 ? 34.6 ? 13.5 11/01/2013 ?? 00:16:00 ?? 33.4 ? 33.4 ? 13.1 10/31/2013 ?? 00:21:00 ?? 33.0 ? 34.0 ? 13.4 10/30/2013 ?? 02:08:00 ?? 33.3 ? 34.2 ? 13.1 10/29/2013 ?? 00:36:00 ?? 33.3 ? 34.4 ? 12.6 10/28/2013 ?? 00:56:00 ?? 32.8 ? 33.8 ? 12.7 10/27/2013 ?? 00:52:00 ?? 33.6 ? 34.4 ? 12.8 10/26/2013 ?? 00:51:00 ?? 33.9 ??H ?34.1 ? 12.7 10/25/2013 ?? 00:20:00 ?? 33.4 ? 33.7 ? 12.9 10/24/2013 ?? 02:20:00 ?? 34.5 ??H ?34.7 ? 12.6 10/22/2013 ?? 20:29:00 ?? 33.8 ??H ?33.8 ? 12.5 10/22/2013 ?? 00:13:00 ?? 34.2 ??H ?34.6 ? 12.4 ? COMPLETE BLOOD COUNT ?Test: MCH ?MCHC ? RDW ? Reference: [26.7-33.7] ??[32.7-35.5] ??[11.8-14.6] ? Units: pg ? g/dL ? % 10/20/2013 ?? 23:21:00 ?? 34.8 ??H ?35.5 ? 12.7 10/19/2013 ?? 20:42:00 ?? 34.0 ??H ?34.3 ? 12.9 ?Test: MPV ? Reference: [6.8-10.4] ? Units: fL 11/12/2013 ?? 10:16:00 ?? 8.1 11/11/2013 ?? 02:24:00 ?? 8.2 11/09/2013 ?? 09:47:00 ?? 8.1 11/04/2013 ?? 00:47:00 ?? 8.1 11/03/2013 ?? 02:09:00 ?? 8.5 11/02/2013 ?? 02:54:00 ?? 8.0 11/01/2013 ?? 00:16:00 ?? 8.3 10/31/2013 ?? 00:21:00 ?? 8.4 10/30/2013 ?? 02:08:00 ?? 8.4 10/29/2013 ?? 00:36:00 ?? 9.0 10/28/2013 ?? 00:56:00 ?? 8.6 10/27/2013 ?? 00:52:00 ?? 9.0 10/26/2013 ?? 00:51:00 ?? 8.9 10/25/2013 ?? 00:20:00 ?? 8.3 10/24/2013 ?? 02:20:00 ?? 8.1 10/22/2013 ?? 20:29:00 ?? 8.0 10/22/2013 ?? 00:13:00 ?? 8.3 10/20/2013 ?? 23:21:00 ?? 7.4 10/19/2013 ?? 20:42:00 ?? 7.5 ? AUTOMATED WHITE CELL DIFFERENTIAL ?Test: Neut Pct Auto ??Lymph Pct Auto ??Sarpy Pct Auto ? Reference: [38.7-74.5] ?[20.0-54.3] ? [4.3-13.5] ? Units: % ?% ? % 11/12/2013 ?? 10:16:00 ?? 83.0 ??H ?6.4 ??L ?7.1 11/11/2013 ?? 02:24:00 ?? 73.6 ? 12.5 ??L ? 6.4 11/09/2013 ?? 09:47:00 ?? 84.4 ??H ?6.0 ??L ?4.7 11/04/2013 ?? 00:47:00 ?? 73.3 ? 16.5 ??L ? 5.8 11/03/2013 ?? 02:09:00 ?? 80.3 ??H ?10.9 ??L ? 5.0 11/02/2013 ?? 02:54:00 ?? 75.8 ??H ?14.4 ??L ? 5.4 11/01/2013 ?? 00:16:00 ?? 75.0 ??H ?14.4 ??L ? 5.9 10/31/2013 ?? 00:21:00 ?? 78.8 ??H ?10.3 ??L ? 5.5 10/30/2013 ?? 02:08:00 ?? 76.1 ??H ?11.5 ??L ? 7.2 10/29/2013 ?? 00:36:00 ?? 82.8 ??H ?8.8 ??L ?5.5 10/28/2013 ?? 00:56:00 ?? 71.1 ? 13.8 ??L ? 7.6 10/27/2013 ?? 00:52:00 ?? 75.9 ??H ?12.3 ??L ? 7.6 10/26/2013 ?? 00:51:00 ?? 75.3 ??H ?11.8 ??L ? 7.1 10/25/2013 ?? 00:20:00 ?? 75.1 ??H ?11.2 ??L ? 9.1 10/24/2013 ?? 02:20:00 ?? 80.1 ??H ?5.6 ??L ?11.9 10/22/2013 ?? 20:29:00 ?? 88.0 ??H ?4.8 ??L ?6.7 10/22/2013 ?? 00:13:00 ?? 85.2 ??H ?6.3 ??L ?6.5 10/20/2013 ?? 23:21:00 ?? 86.7 ??H ?5.7 ??L ?6.2 10/19/2013 ?? 20:42:00 ?? 82.0 ??H ?10.8 ??L ? 6.3 ? AUTOMATED WHITE CELL DIFFERENTIAL ?Test: Eos Pct Auto ??Baso Pct Auto ??Neut Abs Auto ? Reference: [0.0-6.0] ? [0.0-3.0] ?[1.8-6.6] ? Units: % ? % ?K/cumm 11/12/2013 ?? 10:16:00 ?? 3.2 ? 0.3 ?11.5 ??H 11/11/2013 ?? 02:24:00 ?? 7.1 ??H ?0.4 ?7.5 ??H 11/09/2013 ?? 09:47:00 ?? 4.8 ? 0.1 ?14.4 ??H 11/04/2013 ?? 00:47:00 ?? 3.6 ? 0.8 ?9.2 ??H 11/03/2013 ?? 02:09:00 ?? 3.5 ? 0.3 ?13.6 ??H 11/02/2013 ?? 02:54:00 ?? 3.9 ? 0.5 ?10.1 ??H 11/01/2013 ?? 00:16:00 ?? 4.4 ? 0.3 ?11.5 ??H 10/31/2013 ?? 00:21:00 ?? 4.9 ? 0.5 ?12.3 ??H 10/30/2013 ?? 02:08:00 ?? 4.9 ? 0.3 ?11.3 ??H 10/29/2013 ?? 00:36:00 ?? 2.8 ? 0.1 ?12.9 ??H 10/28/2013 ?? 00:56:00 ?? 6.8 ??H ?0.7 ?8.3 ??H 10/27/2013 ?? 00:52:00 ?? 3.9 ? 0.3 ?9.8 ??H 10/26/2013 ?? 00:51:00 ?? 5.7 ? 0.1 ?10.9 ??H 10/25/2013 ?? 00:20:00 ?? 4.2 ? 0.4 ?11.7 ??H 10/24/2013 ?? 02:20:00 ?? 1.7 ? 0.7 ?11.8 ??H 10/22/2013 ?? 20:29:00 ?? 0.4 ? 0.1 ?11.9 ??H 10/22/2013 ?? 00:13:00 ?? 1.4 ? 0.6 ?12.4 ??H 10/20/2013 ?? 23:21:00 ?? 1.3 ? 0.1 ?13.0 ??H 10/19/2013 ?? 20:42:00 ?? 0.7 ? 0.2 ?11.7 ??H ?Test: Lymph Abs Auto ??Sarpy Abs Auto ??Eos Abs Auto ? Reference: [1.2-3.3] ? [0.2-1.2] ?[0.0-0.5] ? Units: K/cumm ?K/cumm ? K/cumm 11/12/2013 ?? 10:16:00 ?? 0.9 ??L ?1.0 ?0.4 11/11/2013 ?? 02:24:00 ?? 1.3 ? 0.7 ?0.7 ??H 11/09/2013 ?? 09:47:00 ?? 1.0 ??L ?0.8 ?0.8 ??H 11/04/2013 ?? 00:47:00 ?? 2.1 ? 0.7 ?0.4 11/03/2013 ?? 02:09:00 ?? 1.9 ? 0.8 ?0.6 ??H 11/02/2013 ?? 02:54:00 ?? 1.9 ? 0.7 ?0.5 11/01/2013 ?? 00:16:00 ?? 2.2 ? 0.9 ?0.7 ??H 10/31/2013 ?? 00:21:00 ?? 1.6 ? 0.9 ?0.8 ??H 10/30/2013 ?? 02:08:00 ?? 1.7 ? 1.1 ?0.7 ??H 10/29/2013 ?? 00:36:00 ?? 1.4 ? 0.9 ?0.4 10/28/2013 ?? 00:56:00 ?? 1.6 ? 0.9 ?0.8 ??H 10/27/2013 ?? 00:52:00 ?? 1.6 ? 1.0 ?0.5 10/26/2013 ?? 00:51:00 ?? 1.7 ? 1.0 ?0.8 ??H 10/25/2013 ?? 00:20:00 ?? 1.7 ? 1.4 ??H ? 0.6 ??H 10/24/2013 ?? 02:20:00 ?? 0.8 ??L ?1.8 ??H ? 0.3 10/22/2013 ?? 20:29:00 ?? 0.6 ??L ?0.9 ?0.1 10/22/2013 ?? 00:13:00 ?? 0.9 ??L ?1.0 ?0.2 10/20/2013 ?? 23:21:00 ?? 0.8 ??L ?0.9 ?0.2 10/19/2013 ?? 20:42:00 ?? 1.5 ? 0.9 ?0.1 ?Test: Baso Abs Auto ??Consistent Result ? Reference: [0.0-0.2] ? Units: K/cumm 11/12/2013 ?? 10:16:00 ?? 0.0 11/11/2013 ?? 02:24:00 ?? 0.0 11/09/2013 ?? 09:47:00 ?? 0.0 11/04/2013 ?? 00:47:00 ?? 0.1 11/03/2013 ?? 02:09:00 ?? 0.0 11/02/2013 ?? 02:54:00 ?? 0.1 11/01/2013 ?? 00:16:00 ?? 0.1 10/31/2013 ?? 00:21:00 ?? 0.1 ?See Below ? AUTOMATED WHITE CELL DIFFERENTIAL ?Test: Baso Abs Auto ??Consistent Result ? Reference: [0.0-0.2] ? Units: K/cumm 10/30/2013 ?? 02:08:00 ?? 0.1 10/29/2013 ?? 00:36:00 ?? 0.0 10/28/2013 ?? 00:56:00 ?? 0.1 10/27/2013 ?? 00:52:00 ?? 0.0 10/26/2013 ?? 00:51:00 ?? 0.0 10/25/2013 ?? 00:20:00 ?? 0.1 10/24/2013 ?? 02:20:00 ?? 0.1 10/22/2013 ?? 20:29:00 ?? 0.0 10/22/2013 ?? 00:13:00 ?? 0.1 10/20/2013 ?? 23:21:00 ?? 0.0 10/19/2013 ?? 20:42:00 ?? 0.0 10/31/2013 ??00:21:00 ??Consistent Result ? Consistent with previous results. ? HEMOSTASIS AND THROMBOSIS ?Routine Coagulation Studies ?Test: PT ?INR ?aPTT ? Reference: [9.0-12.0] ??[0.90-1.20] ??[25.0-37.0] ? Units: sec ?sec 11/01/2013 ?? 00:16:00 ?? 14.1 ??H ? 1.33 ??H ?32.5 10/22/2013 ?? 20:29:00 ?? 13.9 ??H ? 1.31 ??H ?31.4 10/19/2013 ?? 20:42:00 ?? 13.3 ??H ? 1.25 ??H ?33.3 10/19/2013 20:42:00 INR: Interpretive Data Inpatient therapeutic ranges* Atrial fibrillation ?2.0-3.0 INR Venous thrombo-embolism ?2.0-3.0 INR Bioprosthetic heart valve ?* Mechanical heart valve, bileaflet or tilting disk,aortic position ? 2.0-3.0 INR All other,or bileaflet or tilting disk, in mitral position ? 2.5-3.5 INR *See the pharmacy resource directory (PHRED) for an updated copy of the Tool Book at [email or web address] Current Interpretive Data was last revised 2011. 10/19/2013 20:42:00 aPTT: Interpretive Data Therapeutic heparin range:60.0 - 94.0 sec based on correlation with therapeutic heparin activity range of 0.3 -0.7 Units/mL. Current interpretive data was last revised on 2011. ? TRANSFUSION MEDICINE ?Test: Indirect Madhavi. ??ABO/Rh Pat Interp ? Reference: ? Units: 11/01/2013 ?? 00:16:00 ?? Negative ?O Positive 10/22/2013 ?? 20:29:00 ?? Negative ?O Positive 10/19/2013 ?? 21:00:00 ? O Positive 10/19/2013 ?? 20:42:00 ?? Negative ?O Positive ?POINT OF CARE TESTS ? Chemistry ?Test: pH Art gPOC ??pCO2 Art gPOC ??pO2 Art gPOC ? Reference: [7.35-7.45] ??[35-45] ?[80-105] ? Units: ?mmHg ? mmHg 10/22/2013 ?? 17:21:00 ?? 7.43 ? 40 ? 81 ?Test: Bicarb Art gPOC ??TCO2 Art gPOC ??O2 Sat Art gPOC ? Reference: [20-30] ?[22-32] ?[95-98] ? Units: mmol/L ? mmol/L ? % 10/22/2013 ?? 17:21:00 ?? 27 ? 28 ? 96 ?Test: Base Ex Art gPOC ??Sodium gPOC ??Potass gPOC ? Reference: ? [135-145] ?[3.3-4.9] ? Units: mmol/L ?mmol/L ? mmol/L 10/22/2013 ?? 17:21:00 ?? 2.0 ? 138 ?3.5 ?Test: Ca Ion gPOC ??Gluc gPOC ??HCT gPOC ? Reference: [4.50-5.10] ??[70-199] ?? [40.7-50.3] ? Units: mg/dL ?mg/dL ?% 10/22/2013 ?? 17:21:00 ?? 4.65 ? 116 ?29.0 ??L ?Test: Glucose POC ? Reference: [70-199] ? Units: mg/dL 10/22/2013 ?? 20:23:00 ?? 132 10/22/2013 ?? 14:21:00 ?? 133 10/22/2013 ?? 08:17:00 ?? 152 10/22/2013 ?? 02:05:00 ?? 138 10/21/2013 ?? 20:23:00 ?? 147 10/21/2013 ?? 13:29:00 ?? 147 10/21/2013 ?? 08:12:00 ?? 138 10/21/2013 ?? 07:44:00 ?? 137 10/21/2013 ?? 01:28:00 ?? 132 10/20/2013 ?? 19:39:00 ?? 136 10/20/2013 ?? 14:02:00 ?? 171 10/20/2013 ?? 07:38:00 ?? 165 10/20/2013 ?? 02:28:00 ?? 159 10/19/2013 ?? 20:33:00 ?? 124 ? MICROBIOLOGY - ALL TESTS ? PROCEDURE: Aerobic Culture, Respiratory and Gram Stain ?SOURCE: Tracheal Aspirate COLLECTED: 10/27/13 ??1721 ? BODY SITE: STARTED: 10/27/13 ??1738 FREE TEXT SOURCE: DIRECT SPECIMEN EXAMINATION Stain REPORTED: 10/27/13 1836 Few polymorphonuclear leukocytes seen. Few squamous epithelial cells seen. Few mixed bacterial elia seen on Gram stain. FINAL REPORT REPORTED: 10/29/13 1154 Insignificant growth based on current clinical standards. ? PROCEDURE: Aerobic Culture, Respiratory and Gram Stain ?SOURCE: Tracheal Aspirate COLLECTED: 10/25/13 ??1838 ? BODY SITE: STARTED: 10/25/13 ??1930 FREE TEXT SOURCE: DIRECT SPECIMEN EXAMINATION Stain REPORTED: 10/25/13 2206 Abundant polymorphonuclear leukocytes seen. Abundant squamous epithelial cells seen indicating excessive oral pharyngeal contamination Moderate Mixed bacterial elia seen on gram stain. FINAL REPORT REPORTED: 10/28/13 1433 Insignificant growth based on current clinical standards. ? PROCEDURE: Aerobic Culture, Respiratory and Gram Stain ?SOURCE: Tracheal Aspirate COLLECTED: 10/22/13 ??2318 ? BODY SITE: STARTED: 10/22/13 ??2345 FREE TEXT SOURCE: DIRECT SPECIMEN EXAMINATION Stain REPORTED: 10/23/13 0054 Abundant polymorphonuclear leukocytes seen. Abundant mixed bacterial elia seen on Gram stain. Few squamous epithelial cells seen. ? MICROBIOLOGY - ALL TESTS ? PROCEDURE: Aerobic Culture, Respiratory and Gram Stain ?SOURCE: Tracheal Aspirate COLLECTED: 10/22/13 ??2318 ? BODY SITE: STARTED: 10/22/13 ??2345 FREE TEXT SOURCE: FINAL REPORT REPORTED: 10/25/13 1403 Growth indicates upper respiratory elia contamination. Includes the following: Less than 100,000 colonies/ml of Beta Hemolytic Streptococcus, Group F Routine susceptibility testing not performed. ? PROCEDURE: Aerobic Culture, Respiratory and Gram Stain ?SOURCE: Tracheal Aspirate COLLECTED: 10/20/13 ??1606 ? BODY SITE: STARTED: 10/20/13 ??1931 FREE TEXT SOURCE: DIRECT SPECIMEN EXAMINATION Stain REPORTED: 10/20/132056 No squamous epithelial cells seen. Abundant polymorphonuclear leukocytes seen. Moderate Mixed bacterial elia seen on gram stain. FINAL REPORT REPORTED: 10/24/13 1501 Growth indicates upper respiratory elia contamination. Includes the following: Less than 100,000 colonies/ml of Beta Hemolytic Streptococcus, Group F Routine susceptibility testing not performed. ? MICROBIOLOGY - ALL TESTS ? PROCEDURE: Aerobic, Anaerobic and Mycology Culture, Blood ?SOURCE: Blood COLLECTED: 10/27/13 ??1705 ? BODY SITE: Peripheral STARTED: 10/27/13 ??1741 FREE TEXT SOURCE: FINAL REPORT REPORTED: 11/02/13 0249 No growth * * * ??Interpretive Results ??* * * (1)Blood cultures are incubated for five days on a continuously monitored blood culture system. ??The first report of a negative culture is issued within 24 hours of receipt of the specimen in the laboratory. ??Positive culture results are reported as soon as they are detected. ??For blood cultures with gram-positive cocci, a rapid molecular test for organism identification may be performed using the [employer] Nanosphere Gram Positive Blood Culture Assay. ??The Nanosphere assay detects microbial DNA in positive blood culture broth via hybridization of target DNA to capture oligonucleotides on a microarray. ??This assay has been cleared by the [place] Food and Drug Administration and its performance characteristics have been verified by the [facility].Current Interpretive Data was last revised on 2013. ? PROCEDURE: Aerobic, Anaerobic and Mycology Culture, Blood ?SOURCE: Blood COLLECTED: 10/27/13 ??1705 ? BODY SITE: Peripheral STARTED: 10/27/13 ??1742 FREE TEXT SOURCE: FINAL REPORT REPORTED: 11/02/13 0249 No growth * * * ??Interpretive Results ??* * * (1)Blood cultures are incubated for five days on a continuously monitored blood culture system. ??The first report of a negative culture is issued within 24 hours of receipt of the specimen in the laboratory. ??Positive culture results are reported as soon as they are detected. ??For blood cultures with gram-positive cocci, a rapid molecular test for organism identification may be performed using the [employer] Nanosphere Gram Positive Blood Culture Assay. ??The Nanosphere assay detects microbial DNA in positive blood culture broth via hybridization of target DNA to capture oligonucleotides on a microarray. ??This assay has been cleared by the [place] Food and Drug Administration and its performance characteristics have been verified by the [facility].Current Interpretive Data was last revised on 2013. ? MICROBIOLOGY - ALL TESTS ? PROCEDURE: Aerobic, Anaerobic and Mycology Culture, Blood ?SOURCE: Blood COLLECTED: 10/27/13 ??1705 ? BODY SITE: Peripheral STARTED: 10/27/13 ??1742 FREE TEXT SOURCE: ? PROCEDURE: Aerobic, Anaerobic and Mycology Culture, Blood ?SOURCE: Blood COLLECTED: 10/25/13 ??1838 ? BODY SITE: Peripheral STARTED: 10/25/13 ??1931 FREE TEXT SOURCE: FINAL REPORT REPORTED: 10/31/13 0132 No growth * * * ??Interpretive Results ??* * * (1)Blood cultures are incubated for five days on a continuously monitored blood culture system. ??The first report of a negative culture is issued within 24 hours of receipt of the specimen in the laboratory. ??Positive culture results are reported as soon as they are detected. ??For blood cultures with gram-positive cocci, a rapid molecular test for organism identification may be performed using the [employer] Nanosphere Gram Positive Blood Culture Assay. ??The Nanosphere assay detects microbial DNA in positive blood culture broth via hybridization of target DNA to capture oligonucleotides on a microarray. ??This assay has been cleared by the [place] Food and Drug Administration and its performance characteristics have been verified by the [facility].Current Interpretive Data was last revised on 2013. ? MICROBIOLOGY - ALL TESTS ? PROCEDURE: Aerobic, Anaerobic and Mycology Culture, Blood ?SOURCE: Blood COLLECTED: 10/25/13 ??1838 ? BODY SITE: Peripheral STARTED: 10/25/13 ??1932 FREE TEXT SOURCE: FINAL REPORT REPORTED: 10/31/13 0132 No growth * * * ??Interpretive Results ??* * * (1)Blood cultures are incubated for five days on a continuously monitored blood culture system. ??The first report of a negative culture is issued within 24 hours of receipt of the specimen in the laboratory. ??Positive culture results are reported as soon as they are detected. ??For blood cultures with gram-positive cocci, a rapid molecular test for organism identification may be performed using the [employer] Nanosphere Gram Positive Blood Culture Assay. ??The Nanosphere assay detects microbial DNA in positive blood culture broth via hybridization of target DNA to capture oligonucleotides on a microarray. ??This assay has been cleared by the [place] Food and Drug Administration and its performance characteristics have been verified by the [facility].Current Interpretive Data was last revised on 2013. ? PROCEDURE: Aerobic, Anaerobic and Mycology Culture, Blood ?SOURCE: Blood COLLECTED: 10/22/13 ??2318 ? BODY SITE: Peripheral STARTED: 10/22/13 ??2346 FREE TEXT SOURCE: FINAL REPORT REPORTED: 10/29/13 0543 No growth * * * ??Interpretive Results ??* * * (1)Blood cultures are incubated for five days on a continuously monitored blood culture system. ??The first report of a negative culture is issued within 24 hours of receipt of the specimen in the laboratory. ??Positive culture results are reported as soon as they are detected. ??For blood cultures with gram-positive cocci, a rapid molecular test for organism identification may be performed using the [employer] Nanosphere Gram Positive Blood Culture Assay. ??The Nanosphere assay detects microbial DNA in positive blood culture broth via hybridization of target DNA to capture oligonucleotides on a microarray. ??This assay has been cleared by the [place] Food and Drug Administration and its performance characteristics have been verified by the [facility].Current Interpretive Data was last revised on 2013. ? MICROBIOLOGY - ALL TESTS ? PROCEDURE: Aerobic, Anaerobic and Mycology Culture, Blood ?SOURCE: Blood COLLECTED: 10/22/13 ??2318 ? BODY SITE: Peripheral STARTED: 10/22/13 ??2346 FREE TEXT SOURCE: ? PROCEDURE: Aerobic, Anaerobic and Mycology Culture, Blood ?SOURCE: Blood COLLECTED: 10/22/13 ??2318 ? BODY SITE: Peripheral STARTED: 10/22/13 ??2346 FREE TEXT SOURCE: FINAL REPORT REPORTED: 10/29/13 0543 No growth * * * ??Interpretive Results ??* * * (1)Blood cultures are incubated for five days on a continuously monitored blood culture system. ??The first report of a negative culture is issued within 24 hours of receipt of the specimen in the laboratory. ??Positive culture results are reported as soon as they are detected. ??For blood cultures with gram-positive cocci, a rapid molecular test for organism identification may be performed using the [employer] Nanosphere Gram Positive Blood Culture Assay. ??The Nanosphere assay detects microbial DNA in positive blood culture broth via hybridization of target DNA to capture oligonucleotides on a microarray. ??This assay has been cleared by the [place] Food and Drug Administration and its performance characteristics have been verified by the [facility].Current Interpretive Data was last revised on 2013. ? MICROBIOLOGY - ALL TESTS ? PROCEDURE: Aerobic, Anaerobic and Mycology Culture, Blood ?SOURCE: Blood COLLECTED: 10/20/13 ??1606 ? BODY SITE: Forearm, right STARTED: 10/20/13 ??1946 FREE TEXT SOURCE: FINAL REPORT REPORTED: 10/26/13 0257 No growth * * * ??Interpretive Results ??* * * (1)Blood cultures are incubated for five days on a continuously monitored blood culture system. ??The first report of a negative culture is issued within 24 hours of receipt of the specimen in the laboratory. ??Positive culture results are reported as soon as they are detected. ??For blood cultures with gram-positive cocci, a rapid molecular test for organism identification may be performed using the [employer] Nanosphere Gram Positive Blood Culture Assay. ??The Nanosphere assay detects microbial DNA in positive blood culture broth via hybridization of target DNA to capture oligonucleotides on a microarray. ??This assay has been cleared by the [place] Food and Drug Administration and its performance characteristics have been verified by the [facility].Current Interpretive Data was last revised on 2013. ? PROCEDURE: Aerobic, Anaerobic and Mycology Culture, Blood ?SOURCE: Blood COLLECTED: 10/20/13 ??1606 ? BODY SITE: Radial, left STARTED: 10/20/13 ??194 FREE TEXT SOURCE: FINAL REPORT REPORTED: 10/26/13 0257 No growth * * * ??Interpretive Results ??* * * (1)Blood cultures are incubated for five days on a continuously monitored blood culture system. ??The first report of a negative culture is issued within 24 hours of receipt of the specimen in the laboratory. ??Positive culture results are reported as soon as they are detected. ??For blood cultures with gram-positive cocci, a rapid molecular test for organism identification may be performed using the [employer] Nanosphere Gram Positive Blood Culture Assay. ??The Nanosphere assay detects microbial DNA in positive blood culture broth via hybridization of target DNA to capture oligonucleotides on a microarray. ??This assay has been cleared by the [place] Food and Drug Administration and its performance characteristics have been verified by the [facility].Current Interpretive Data was last revised on 2013. ? MICROBIOLOGY - ALL TESTS ? PROCEDURE: Aerobic, Anaerobic and Mycology Culture, Blood ?SOURCE: Blood COLLECTED: 10/20/13 ??1606 ? BODY SITE: Radial, left STARTED: 10/20/13 ??1946 FREE TEXT SOURCE: ? PROCEDURE: Clostridium difficile Toxin ?SOURCE: Stool COLLECTED: 11/12/13 ??0557 ? BODY SITE: STARTED: 11/12/13 ??0736 FREE TEXT SOURCE: FINAL REPORT REPORTED: 11/13/13 0213 Positive for: Clostridium difficile toxin. ? PROCEDURE: Clostridium difficile Toxin ?SOURCE: Stool COLLECTED: 10/30/13 ??1319 ? BODY SITE: STARTED: 10/30/13 ??1434 FREE TEXT SOURCE: FINAL REPORT REPORTED: 10/31/13 0135 Negative for: Clostridium difficile toxin. ? PROCEDURE: Clostridium difficile Toxin ?SOURCE: Stool COLLECTED: 10/24/13 ??1238 ? BODY SITE: STARTED: 10/24/13 ??1352 FREE TEXT SOURCE: FINAL REPORT REPORTED: 10/25/13 0119 Negative for: Clostridium difficile toxin. ? MICROBIOLOGY - ALL TESTS ? PROCEDURE: Urine Culture ?SOURCE: Urine, bladder COLLECTED: 11/12/13 ??0557 ? BODY SITE: STARTED: 11/12/13 ??0736 FREE TEXT SOURCE: FINAL REPORT REPORTED: 11/13/13 0817 No growth ? PROCEDURE: Urine Culture ?SOURCE: Urine, catheterized COLLECTED: 10/27/13 ??1719 ? BODY SITE: STARTED: 10/27/13 ??1739 FREE TEXT SOURCE: FINAL REPORT REPORTED: 10/29/13 1153 No growth ? PROCEDURE: Urine Culture ?SOURCE: Urine, catheterized COLLECTED: 10/25/13 ??1838 ? BODY SITE: STARTED: 10/25/13 ??1930 FREE TEXT SOURCE: FINAL REPORT REPORTED: 10/27/13 1028 No growth ? PROCEDURE: Urine Culture ?SOURCE: Urine, catheterized COLLECTED: 10/22/13 ??2318 ? BODY SITE: STARTED: 10/22/13 ??2347 FREE TEXT SOURCE: FINAL REPORT REPORTED: 10/26/13 1035 Greater than or equal to 5,000 colonies/ml of Enterococcus species Plus growth of clinically insignificant bacterial elia. ? MICROBIOLOGY - ALL TESTS ? PROCEDURE: Urine Culture ?SOURCE: Urine, catheterized COLLECTED: 10/22/13 ??2318 ? BODY SITE: STARTED: 10/22/13 ??2347 FREE TEXT SOURCE: SUSCEPTIBILITY RESULTS Enterococcus species ? SUSCEPTIBLE: Ampicillin,Vancomycin, ?Nitrofurantoin ? RESISTANT: Doxycycline ? PROCEDURE: Urine Culture ?SOURCE: Urine COLLECTED: 10/20/13 ??1140 ? BODY SITE: STARTED: 10/20/13 ??1231 FREE TEXT SOURCE: FINAL REPORT REPORTED: 10/21/13 1539 No growth ? PROCEDURE: VRE Surveillance Culture ?SOURCE: Stool COLLECTED: 11/12/13 ??0556 ? BODY SITE: STARTED: 11/13/13 ??0142 FREE TEXT SOURCE: FINAL REPORT REPORTED: 11/14/13 1502 Enterococcus species, vancomycin resistant * * * ??Interpretive Results ??* * * (1)This test is for Infection prevention surveillance; no charge to patient.Current interpretive data was last revised on 2011. ? MICROBIOLOGY - ALL TESTS ? PROCEDURE: VRE Surveillance Culture ?SOURCE: Stool COLLECTED: 10/24/13 ??1238 ? BODY SITE: STARTED: 10/25/13 ??0040 FREE TEXT SOURCE: FINAL REPORT REPORTED: 10/27/13 0532 Negative * * * ??Interpretive Results ??* * * (1)This test is for Infection prevention surveillance; no charge to patient.Current interpretive data was last revised on 2011. ? MICROBIOLOGY - BLOOD/STERILE FLUID ? PROCEDURE: Aerobic, Anaerobic and Mycology Culture, Blood ?SOURCE: Blood COLLECTED: 10/27/13 ??1705 ? BODY SITE: Peripheral STARTED: 10/27/13 ??1741 FREE TEXT SOURCE: FINAL REPORT REPORTED: 11/02/13 0249 No growth * * * ??Interpretive Results ??* * * (1)Blood cultures are incubated for five days on a continuously monitored blood culture system. ??The first report of a negative culture is issued within 24 hours of receipt of the specimen in the laboratory. ??Positive culture results are reported as soon as they are detected. ??For blood cultures with gram-positive cocci, a rapid molecular test for organism identification may be performed using the [employer] Nanosphere Gram Positive Blood Culture Assay. ??The Nanosphere assay detects microbial DNA in positive blood culture broth via hybridization of target DNA to capture oligonucleotides on a microarray. ??This assay has been cleared by the [place] Food and Drug Administration and its performance characteristics have been verified by the [facility].Current Interpretive Data was last revised on 2013. ? MICROBIOLOGY - BLOOD/STERILE FLUID ? PROCEDURE: Aerobic, Anaerobic and Mycology Culture, Blood ?SOURCE: Blood COLLECTED: 10/27/13 ??1705 ? BODY SITE: Peripheral STARTED: 10/27/13 ??1742 FREE TEXT SOURCE: FINAL REPORT REPORTED: 11/02/13 0249 No growth * * * ??Interpretive Results ??* * * (1)Blood cultures are incubated for five days on a continuously monitored blood culture system. ??The first report of a negative culture is issued within 24 hours of receipt of the specimen in the laboratory. ??Positive culture results are reported as soon as they are detected. ??For blood cultures with gram-positive cocci, a rapid molecular test for organism identification may be performed using the [employer] Nanosphere Gram Positive Blood Culture Assay. ??The Nanosphere assay detects microbial DNA in positive blood culture broth via hybridization of target DNA to capture oligonucleotides on a microarray. ??This assay has been cleared by the [place] Food and Drug Administration and its performance characteristics have been verified by the [facility].Current Interpretive Data was last revised on 2013. ? PROCEDURE: Aerobic, Anaerobic and Mycology Culture, Blood ?SOURCE: Blood COLLECTED: 10/25/13 ??1838 ? BODY SITE: Peripheral STARTED: 10/25/13 ??1931 FREE TEXT SOURCE: FINAL REPORT REPORTED: 10/31/13 0132 No growth * * * ??Interpretive Results ??* * * (1)Blood cultures are incubated for five days on a continuously monitored blood culture system. ??The first report of a negative culture is issued within 24 hours of receipt of the specimen in the laboratory. ??Positive culture results are reported as soon as they are detected. ??For blood cultures with gram-positive cocci, a rapid molecular test for organism identification may be performed using the [employer] Nanosphere Gram Positive Blood Culture Assay. ??The Nanosphere assay detects microbial DNA in positive blood culture broth via hybridization of target DNA to capture oligonucleotides on a microarray. ??This assay has been cleared by the [place] Food and Drug Administration and its performance characteristics have been verified by the [facility].Current Interpretive Data was last revised on 2013. ? MICROBIOLOGY - BLOOD/STERILE FLUID ? PROCEDURE: Aerobic, Anaerobic and Mycology Culture, Blood ?SOURCE: Blood COLLECTED: 10/25/13 ??1838 ? BODY SITE: Peripheral STARTED: 10/25/13 ??1931 FREE TEXT SOURCE: ? PROCEDURE: Aerobic, Anaerobic and Mycology Culture, Blood ?SOURCE: Blood COLLECTED: 10/25/13 ??1838 ? BODY SITE: Peripheral STARTED: 10/25/13 ??193 FREE TEXT SOURCE: FINAL REPORT REPORTED: 10/31/13 0132 No growth * * * ??Interpretive Results ??* * * (1)Blood cultures are incubated for five days on a continuously monitored blood culture system. ??The first report of a negative culture is issued within 24 hours of receipt of the specimen in the laboratory. ??Positive culture results are reported as soon as they are detected. ??For blood cultures with gram-positive cocci, a rapid molecular test for organism identification may be performed using the [employer]loop Nanosphere Gram Positive Blood Culture Assay. ??The Nanosphere assay detects microbial DNA in positive blood culture broth via hybridization of target DNA to capture oligonucleotides on a microarray. ??This assay has been cleared by the [place] Food and Drug Administration and its performance characteristics have been verified by the [facility].Current Interpretive Data was last revised on 2013. ? MICROBIOLOGY - BLOOD/STERILE FLUID ? PROCEDURE: Aerobic, Anaerobic and Mycology Culture, Blood ?SOURCE: Blood COLLECTED: 10/22/13 ??2318 ? BODY SITE: Peripheral STARTED: 10/22/13 ??2346 FREE TEXT SOURCE: FINAL REPORT REPORTED: 10/29/13542 No growth * * * ??Interpretive Results ??* * * (1)Blood cultures are incubated for five days on a continuously monitored blood culture system. ??The first report of a negative culture is issued within 24 hours of receipt of the specimen in the laboratory. ??Positive culture results are reported as soon as they are detected. ??For blood cultures with gram-positive cocci, a rapid molecular test for organism identification may be performed using the [employer]loop Nanosphere Gram Positive Blood Culture Assay. ??The Nanosphere assay detects microbial DNA in positive blood culture broth via hybridization of target DNA to capture oligonucleotides on a microarray. ??This assay has been cleared by the [place] Food and Drug Administration and its performance characteristics have been verified by the [facility].Current Interpretive Data was last revised on 2013. ? PROCEDURE: Aerobic, Anaerobic and Mycology Culture, Blood ?SOURCE: Blood COLLECTED: 10/22/13 ??2318 ? BODY SITE: Peripheral STARTED: 10/22/13 ??2346 FREE TEXT SOURCE: FINAL REPORT REPORTED: 10/29/13542 No growth * * * ??Interpretive Results ??* * * (1)Blood cultures are incubated for five days on a continuously monitored blood culture system. ??The first report of a negative culture is issued within 24 hours of receipt of the specimen in the laboratory. ??Positive culture results are reported as soon as they are detected. ??For blood cultures with gram-positive cocci, a rapid molecular test for organism identification may be performed using the [employer]underloop Nanosphere Gram Positive Blood Culture Assay. ??The Nanosphere assay detects microbial DNA in positive blood culture broth via hybridization of target DNA to capture oligonucleotides on a microarray. ??This assay has been cleared by the [place] Food and Drug Administration and its performance characteristics have been verified by the [facility].Current Interpretive Data was last revised on 2013. ? MICROBIOLOGY - BLOOD/STERILE FLUID ? PROCEDURE: Aerobic, Anaerobic and Mycology Culture, Blood ?SOURCE: Blood COLLECTED: 10/22/13 ??2318 ? BODY SITE: Peripheral STARTED: 10/22/13 ??2346 FREE TEXT SOURCE: ? PROCEDURE: Aerobic, Anaerobic and Mycology Culture, Blood ?SOURCE: Blood COLLECTED: 10/20/13 ??1606 ? BODY SITE: Forearm, right STARTED: 10/20/13 ??1946 FREE TEXT SOURCE: FINAL REPORT REPORTED: 10/26/13 0257 No growth * * * ??Interpretive Results ??* * * (1)Blood cultures are incubated for five days on a continuously monitored blood culture system. ??The first report of a negative culture is issued within 24 hours of receipt of the specimen in the laboratory. ??Positive culture results are reported as soon as they are detected. ??For blood cultures with gram-positive cocci, a rapid molecular test for organism identification may be performed using the [employer]ig[employer] Nanosphere Gram Positive Blood Culture Assay. ??The Nanosphere assay detects microbial DNA in positive blood culture broth via hybridization of target DNA to capture oligonucleotides on a microarray. ??This assay has been cleared by the [place] Food and Drug Administration and its performance characteristics have been verified by the [facility].Current Interpretive Data was last revised on 2013. ? MICROBIOLOGY - BLOOD/STERILE FLUID ? PROCEDURE: Aerobic, Anaerobic and Mycology Culture, Blood ?SOURCE: Blood COLLECTED: 10/20/13 ??1606 ? BODY SITE: Radial, left STARTED: 10/20/13 ??1946 FREE TEXT SOURCE: FINAL REPORT REPORTED: 10/26/13 0257 No growth * * * ??Interpretive Results ??* * * (1)Blood cultures are incubated for five days on a continuously monitored blood culture system. ??The first report of a negative culture is issued within 24 hours of receipt of the specimen in the laboratory. ??Positive culture results are reported as soon as they are detected. ??For blood cultures with gram-positive cocci, a rapid molecular test for organism identification may be performed using the Verigene Nanosphere Gram Positive Blood Culture Assay. ??The Nanosphere assay detects microbial DNA in positive blood culture broth via hybridization of target DNA to capture oligonucleotides on a microarray. ??This assay has been cleared by the [place] Food and Drug Administration and its performance characteristics have been verified by the [facility].Current Interpretive Data was last revised on 2013. ? MICROBIOLOGY - GASTROINTESTINAL ? PROCEDURE: Clostridium difficile Toxin ?SOURCE: Stool COLLECTED: 11/12/13 ??0557 ? BODY SITE: STARTED: 11/12/13 ??0736 FREE TEXT SOURCE: FINAL REPORT REPORTED: 11/13/13 0213 Positive for: Clostridium difficile toxin. ? MICROBIOLOGY - GASTROINTESTINAL ? PROCEDURE: Clostridium difficile Toxin ?SOURCE: Stool COLLECTED: 10/30/13 ??1319 ? BODY SITE: STARTED: 10/30/13 ??1434 FREE TEXT SOURCE: FINAL REPORT REPORTED: 10/31/13 0135 Negative for: Clostridium difficile toxin. ? PROCEDURE: Clostridium difficile Toxin ?SOURCE: Stool COLLECTED: 10/24/13 ??1238 ? BODY SITE: STARTED: 10/24/13 ??1352 FREE TEXT SOURCE: FINAL REPORT REPORTED: 10/25/13 0119 Negative for: Clostridium difficile toxin. ? PROCEDURE: VRE Surveillance Culture ?SOURCE: Stool COLLECTED: 11/12/13 ??0556 ? BODY SITE: STARTED: 11/13/13 ??0142 FREE TEXT SOURCE: FINAL REPORT REPORTED: 11/14/13 1502 Enterococcus species, vancomycin resistant * * * ??Interpretive Results ??* * * (1)This test is for Infection prevention surveillance; no charge to patient.Current interpretive data was last revised on 2011. ? MICROBIOLOGY - GASTROINTESTINAL ? PROCEDURE: VRE Surveillance Culture ?SOURCE: Stool COLLECTED: 10/24/13 ??1238 ? BODY SITE: STARTED: 10/25/13 ??0040 FREE TEXT SOURCE: FINAL REPORT REPORTED: 10/27/13 0532 Negative * * * ??Interpretive Results ??* * * (1)This test is for Infection prevention surveillance; no charge to patient.Current interpretive data was last revised on 2011. ? MICROBIOLOGY - RESPIRATORY ? PROCEDURE: Aerobic Culture, Respiratory and Gram Stain ?SOURCE: Tracheal Aspirate COLLECTED: 10/27/13 ??1721 ? BODY SITE: STARTED: 10/27/13 ??1738 FREE TEXT SOURCE: DIRECT SPECIMEN EXAMINATION Stain REPORTED: 10/27/13 1836 Few polymorphonuclear leukocytes seen. Few squamous epithelial cells seen. Few mixed bacterial elia seen on Gram stain. FINAL REPORT REPORTED: 10/29/13 1154 Insignificant growth based on current clinical standards. ? PROCEDURE: Aerobic Culture, Respiratory and Gram Stain ?SOURCE: Tracheal Aspirate COLLECTED: 10/25/13 ??1838 ? BODY SITE: STARTED: 10/25/13 ??1930 FREE TEXT SOURCE: DIRECT SPECIMEN EXAMINATION Stain REPORTED: 10/25/13 2206 Abundant polymorphonuclear leukocytes seen. Abundant squamous epithelial cells seen indicating excessive oral pharyngeal contamination Moderate Mixed bacterial elia seen on gram stain. ? MICROBIOLOGY - RESPIRATORY ? PROCEDURE: Aerobic Culture, Respiratory and Gram Stain ?SOURCE: Tracheal Aspirate COLLECTED: 10/25/13 ??1838 ? BODY SITE: STARTED: 10/25/13 ??1930 FREE TEXT SOURCE: FINAL REPORT REPORTED: 10/28/13 1433 Insignificant growth based on current clinical standards. ? PROCEDURE: Aerobic Culture, Respiratory and Gram Stain ?SOURCE: Tracheal Aspirate COLLECTED: 10/22/13 ??2318 ? BODY SITE: STARTED: 10/22/13 ??2345 FREE TEXT SOURCE: DIRECT SPECIMEN EXAMINATION Stain REPORTED: 10/23/13 0054 Abundant polymorphonuclear leukocytes seen. Abundant mixed bacterial elia seen on Gram stain. Few squamous epithelial cells seen. FINAL REPORT REPORTED: 10/25/13 1403 Growth indicates upper respiratory elia contamination. Includes the following: Less than 100,000 colonies/ml of Beta Hemolytic Streptococcus, Group F Routine susceptibility testing not performed. ? PROCEDURE: Aerobic Culture, Respiratory and Gram Stain ?SOURCE: Tracheal Aspirate COLLECTED: 10/20/13 ??1606 ? BODY SITE: STARTED: 10/20/13 ??1931 FREE TEXT SOURCE: DIRECT SPECIMEN EXAMINATION Stain REPORTED: 10/20/132056 No squamous epithelial cells seen. Abundant polymorphonuclear leukocytes seen. Moderate Mixed bacterial elia seen on gram stain. ? MICROBIOLOGY - RESPIRATORY ? PROCEDURE: Aerobic Culture, Respiratory and Gram Stain ?SOURCE: Tracheal Aspirate COLLECTED: 10/20/13 ??1606 ? BODY SITE: STARTED: 10/20/13 ??1931 FREE TEXT SOURCE: FINAL REPORT REPORTED: 10/24/13 1501 Growth indicates upper respiratory elia contamination. Includes the following: Less than 100,000 colonies/ml of Beta Hemolytic Streptococcus, Group F Routine susceptibility testing not performed. ? MICROBIOLOGY - URINE ? PROCEDURE: Urine Culture ?SOURCE: Urine, bladder COLLECTED: 11/12/13 ??0557 ? BODY SITE: STARTED: 11/12/13 ??0736 FREE TEXT SOURCE: FINAL REPORT REPORTED: 11/13/13 0817 No growth ? PROCEDURE: Urine Culture ?SOURCE: Urine, catheterized COLLECTED: 10/27/13 ??1719 ? BODY SITE: STARTED: 10/27/13 ??1739 FREE TEXT SOURCE: FINAL REPORT REPORTED: 10/29/13 1153 No growth ? MICROBIOLOGY - URINE ? PROCEDURE: Urine Culture ?SOURCE: Urine, catheterized COLLECTED: 10/25/13 ??1838 ? BODY SITE: STARTED: 10/25/13 ??1930 FREE TEXT SOURCE: FINAL REPORT REPORTED: 10/27/13 1028 No growth ? PROCEDURE: Urine Culture ?SOURCE: Urine, catheterized COLLECTED: 10/22/13 ??2318 ? BODY SITE: STARTED: 10/22/13 ??2347 FREE TEXT SOURCE: FINAL REPORT REPORTED: 10/26/13 1035 Greater than or equal to 5,000 colonies/ml of Enterococcus species Plus growth of clinically insignificant bacterial elia. SUSCEPTIBILITY RESULTS Enterococcus species ? SUSCEPTIBLE: Ampicillin,Vancomycin, ?Nitrofurantoin ? RESISTANT: Doxycycline ? PROCEDURE: Urine Culture ?SOURCE: Urine COLLECTED: 10/20/13 ??1140 ? BODY SITE: STARTED: 10/20/13 ??1231 FREE TEXT SOURCE: FINAL REPORT REPORTED: 10/21/13 1539 No growth ? CANCELLED TESTS Date ?Time ?Test ?Cancel Reason 10/19/2013 ??21:28:00 ??Troponin I ?Lab Operations Cancel 10/19/2013 ??22:30:00 ??Basic Met Plas ??Lab Operations Cancel ? CANCELLED TESTS Date ?Time ?Test ?Cancel Reason 10/19/2013 ??22:30:00 ??CBC ? Lab Operations Cancel 10/20/2013 ??02:30:00 ??Basic Met Plas ??Lab Operations Cancel 10/20/2013 ??02:30:00 ??CBC ? Lab Operations Cancel 10/20/2013 ??13:28:00 ??Troponin I ?Lab Operations Cancel 10/21/2013 ??02:30:00 ??Basic Met Plas ??Lab Operations Cancel 10/21/2013 ??02:30:00 ??CBC ? Lab Operations Cancel 10/21/2013 ??20:00:00 ??Basic Met Plas 10/22/2013 ??20:30:00 ??Basic Met Plas ??NCHG Duplicate 10/22/2013 ??20:30:00 ??CBC ? Lab Operations Cancel 10/23/2013 ??02:30:00 ??Basic Met Plas ??Dup Cancel 10/23/2013 ??02:30:00 ??CBC ? Lab Operations Cancel 10/23/2013 ??02:30:00 ??CBC ? Dup Cancel 10/23/2013 ??03:30:00 ??Basic Met Plas 10/24/2013 ??02:30:00 ??Basic Met Plas ??NCHG Duplicate 10/24/2013 ??02:30:00 ??Basic Met Plas ??NCHG Duplicate 10/24/2013 ??02:30:00 ??CBC ? Dup Cancel 10/24/2013 ??03:00:00 ??Magnesium ? Lab Operations Cancel 10/24/2013 ??03:00:00 ??Phos Plas ? Lab Operations Cancel 10/25/2013 ??00:20:00 ??Basic Met Plas ??NCHG Duplicate 10/25/2013 ??02:30:00 ??Basic Met Plas ??Dup Cancel 10/25/2013 ??02:30:00 ??CBC ? Dup Cancel 10/27/2013 ??02:30:00 ??Basic Met Plas ??Lab Operations Cancel 10/29/2013 ??00:36:00 ??Morph Screen ?NCHG Test not indicated 10/31/2013 ??02:30:00 ??Basic Met Plas ??NCHG Duplicate 10/31/2013 ??02:30:00 ??Magnesium ? Dup Cancel 10/31/2013 ??02:30:00 ??Phos Plas ? Dup Cancel 11/03/2013 ??02:09:00 ??Morph Screen ?NCHG Test not indicated 11/11/2013 ??23:59:00 ??Basic Met Plas ??Dup Cancel 11/12/2013 ??07:10:00 ??C BFA ? Discontinued via Patient Discharge 11/12/2013 ??07:10:00 ??C BFA ? Discontinued via Patient Discharge us Historical Provider MD LAB BLOOD ORDERABLES Myrna l Result HISTORICAL RESULTS * All Microbiology Report Section (11/12/2013 12:00 AM CDT) 11/12/2013 Narrative HISTORICAL RESULTS - 11/14/2013 4:10 PM CDT ? [facility] ?[address] [facility] ?[place], [place] [address] ? Patient Name: ??CURLY ANGELO ? Med Rec Number: [id number] ? Fin Number: ?[id number] ? Date: ?1955 ? Sex/Age: ? Male 58 years ? Admit Date: ?10/19/2013 ? Discharge Date: 11/12/2013 ? Doctor: ?Sherron Mahan ? Facility: ?[facility] ? Location: ?[address]14 [id number] ?* Abnormal ??A Alert ??f Footnote ??^ Corrected ??L Low ??H High ?i Interp Data ??@ Ref Lab ? Chart Type:Cumulative ?* * * * MICROBIOLOGY - GASTROINTESTINAL * * * * ?PROCEDURE: VRE Surveillance Culture ? SOURCE: Stool ? COLLECTED: 11/12/13 ??0556 ?BODY SITE: ? STARTED: 11/13/13 ??0142 ? FREE TEXT SOURCE: ? FINAL REPORT ? REPORTED: 11/14/13 1502 ? Enterococcus species, vancomycin resistant ?* * * ??Interpretive Results ??* * * ? (1)This test is for Infection prevention surveillance; no charge to ? patient.Current interpretive data was last revised on 2011. ? us Historical Provider MD LAB MICROBIOLOGY - GENERA L ORDERABLES Final Result HISTORICAL RESULTS * All Microbiology Report Section (11/12/2013 12:00 AM CDT) 11/12/2013 Narrative HISTORICAL RESULTS - 11/13/2013 10:14 AM CDT ? [facility] ?[address] [facility] ?[place], [place] [address] ? Patient Name: ??CURLY ANGELO ? Med Rec Number: [id number] ? Fin Number: ?[id number] ? Date: ?1955 ? Sex/Age: ? Male 58 years ? Admit Date: ?10/19/2013 ? Discharge Date: 11/12/2013 ? Doctor: ?Sherron Mahan ? Facility: ?[facility] ? Location: ?[address]14 [id number] 02 ?* Abnormal ??A Alert ??f Footnote ??^ Corrected ??L Low ??H High ?i Interp Data ??@ Ref Lab ? Chart Type:Cumulative ?* * * * MICROBIOLOGY - URINE * * * * ?PROCEDURE: Urine Culture ? SOURCE: Urine, bladder ? COLLECTED: 11/12/13 ??0557 ?BODY SITE: ? STARTED: 11/12/13 ??0736 ? FREE TEXT SOURCE: ? FINAL REPORT ? REPORTED: 11/13/1317 ? No growth us Historical Provider MD LAB MICROBIOLOGY - GENERA L ORDERABLES Final Result HISTORICAL RESULTS * All Microbiology Report Section (11/12/2013 12:00 AM CDT) 11/12/2013 Narrative HISTORICAL RESULTS - 11/13/2013 3:59 AM CDT ? [facility] ?[address] [facility] ?[place] [id number] ? Patient Name: ??CURLY ANGELO ? Med Rec Number: [id number] ? Fin Number: ?[id number] ? Date: ?1955 ? Sex/Age: ? Male 58 years ? Admit Date: ?10/19/2013 ? Discharge Date: 11/12/2013 ? Doctor: ?Sherron Mahan ? Facility: ?[facility] ? Location: ?[address]14 [id number] 02 ?* Abnormal ??A Alert ??f Footnote ??^ Corrected ??L Low ??H High ?i Interp Data ??@ Ref Lab ? Chart Type:Cumulative ?* * * * MICROBIOLOGY - GASTROINTESTINAL * * * * ?PROCEDURE: Clostridium difficile Toxin ? SOURCE: Stool ? COLLECTED: 11/12/13 ??0557 ?BODY SITE: ? STARTED: 11/12/13 ??0736 ? FREE TEXT SOURCE: ? FINAL REPORT ? REPORTED: 11/13/13 0213 ? Positive for: Clostridium difficile toxin. us Historical Provider MD LAB MICROBIOLOGY - GENERA L ORDERABLES Final Result Performing Organization Address [facility] de Phone Number HISTORICAL RESULTS * (ABNORMAL) Plasma basic metabolic panel (11/11/2013 2:24 AM CDT) Sodium 142 135 - 145 mmol/L HISTORICAL RESULTS K, pl 3.5 3.3 - 4.9 mmol/L HISTORICAL RESULTS Chloride 101 97 - 110 mmol/L HISTORICAL RESULTS CO2 31 22 - 32 mmol/L HISTORICAL RESULTS A. gap 10 0 - 16 mmol/L HISTORICAL RESULTS Glucose 113 70 - 199 mg/dl HISTORICAL RESULTS BUN 30(H) 8 - 25 mg/dl HISTORICAL RESULTS Creatinine 0.90 0.70 - 1.30 mg/dl HISTORICAL RESULTS Calcium 9.0 8.6 - 10.3 mg/dl HISTORICAL RESULTS Plasma 11/11/2013 2:24 AM CDT Marion Funes MD LAB BLOOD ORDERABLES Myrna l Result Performing Organization Address [facility] de Phone Number HISTORICAL RESULTS * Plasma phosphorus (11/11/2013 2:24 AM CDT) Pathologist [facility] Phosphorus, pl 3.6 2.3 - 4.3 mg/dl HISTORICAL RESULTS Plasma 11/11/2013 2:24 AM CDT Marion Funes MD LAB BLOOD ORDERABLES Myrna l Result Performing Organization Address City/[facility] Co de Phone Number HISTORICAL RESULTS * Serum magnesium (11/11/2013 2:24 AM CDT) [facility] Magnesium 1.7 1.4 - 2.5 mg/dl HISTORICAL RESULTS Serum 11/11/2013 2:24 AM CDT Marion Funes MD LAB BLOOD ORDERABLES Myrna l Result Performing Organization Address [facility] de Phone Number HISTORICAL RESULTS * (ABNORMAL) Blood cell count (CBC) (11/11/2013 2:24 AM CDT) [facility] Basophils 0.4 0.0 - 3.0 % HISTORICAL RESULTS WBC 10.1(H) 3.8 - 9.8 K/cumm HISTORICAL RESULTS Neutrophils, abs 7.5(H) 1.8 - 6.6 K/cumm HISTORICAL RESULTS RBC 2.99(L) 4.50 - 5.70 M/cumm HISTORICAL RESULTS Lymphocytes, abs 1.3 1.2 - 3.3 K/cumm HISTORICAL RESULTS Hgb 9.9(L) 13.8 - 17.2 g/dl HISTORICAL RESULTS Monocytes, absolute 0.7 0.2 - 1.2 K/cumm HISTORICAL RESULTS Hct 29.8(L) 40.7 - 50.3 % HISTORICAL RESULTS Eosinophils, abs 0.7(H) 0.0 - 0.5 K/cumm HISTORICAL RESULTS MCV 99.7(H) 80.0 - 97.6 fl HISTORICAL RESULTS Basophils, abs 0.0 0.0 - 0.2 K/cumm HISTORICAL RESULTS MCH 33.2 26.7 - 33.7 pg HISTORICAL RESULTS MCHC 33.3 32.7 - 35.5 g/dl HISTORICAL RESULTS Rdw 14.1 11.8 - 14.6 % HISTORICAL RESULTS Platelets 449(H) 140 - 440 K/cumm HISTORICAL RESULTS MPV 8.2 6.8 - 10.4 fl HISTORICAL RESULTS Neutrophils 73.6 38.7 - 74.5 % HISTORICAL RESULTS Lymphocytes 12.5(L) 20.0 - 54.3 % HISTORICAL RESULTS Monos 6.4 4.3 - 13.5 % HISTORICAL RESULTS Eosinophils 7.1(H) 0.0 - 6.0 % HISTORICAL RESULTS Blood specimen (specimen) 11/11/2013 2:24 AM CDT Marion Funes MD LAB BLOOD ORDERABLES Myrna l Result Performing Organization Address [facility] Co de Phone Number HISTORICAL RESULTS * Urinalysis (11/10/2013 10:21 AM CDT) Color, ur Yellow Yellow HISTORICAL RESULTS Clarity, ur Clear Clear HISTORIC AL RESULTS Specific gravity, ur 1.024 1.003 - 1.030 HISTORICAL RESULTS pH, ur 6.0 5.0 - 8.0 HISTORICAL RESULTS Protein, ur [...] esterase, ur Negative Negative HISTORICAL RESULTS Urine 11/10/2013 10:2 1 AM CDT Marion Funes MD LAB BLOOD ORDERABLES Myrna l Result Performing Organization Address [facility] de Phone Number HISTORICAL RESULTS * XR Chest 1 View (11/10/2013 8:24 AM CDT) Anatomical Region Laterality Modality Body, Chest N/A Radiographic Tawanna ging 11/10/2013 8:24 AM CDT Narrative 11/10/2013 11:53 AM CDT RUSTY SMITH M.D. ELIAN KERN M.D. FINAL REPORT The radiology attending physician has personally reviewed this study, and has reviewed and/or edited this written report and agrees with it. ACC# ??Date Time ??Exam [id number] Nov 10, 2013 08:24:00 16072 Chest 1 view Frontal EXAMINATION: ?? Chest one view IMPRESSION: ?? Comparison is made to the prior examination dated 10/31/2013. There has been interval removal of a nasogastric tube. New bibasalar airspace opacities likely represent an aspiration. No pneumothorax. No pleural effusion. Cardiomediastinal silhouette is normal. Requested By: MARION FUNES M.D. Dictated By: ?? ELIAN KERN M.D. ??on Nov 10 2013 11:09A This document has been electronically signed by: RUSTY SMITH M.D. on Nov 10 2013 11:53A Procedure Note Provider, MD Mirna - 07/28/2016 RUSTY SMITH M.D. ELIAN KERN M.D. FINAL REPORT The radiology attending physician has personally reviewed this study, and has reviewed and/or edited this written report and agrees with it. ACC# Date Time Exam [id number] Nov 10, 2013 08:24:00 02300 Chest 1 view Frontal EXAMINATION: Chest one view IMPRESSION: Comparison is made to the prior examination dated 10/31/2013. There has been interval removal of a nasogastric tube. New bibasalar airspace opacities likely represent an aspiration. No pneumothorax. No pleural effusion. Cardiomediastinal silhouette is normal. Requested By: MARION FUNES M.D. Dictated By: ELIAN KERN M.D. on Nov 10 2013 11:09A This document has been electronically signed by: RUSTY SMITH M.D. on Nov 10 2013 11:53A us Historical Provider MD ESTRADA XR PROCEDURES Final R esult * (ABNORMAL) Plasma basic metabolic panel (11/09/2013 9:47 AM CDT) Sodium 139 135 - 145 mmol/L HISTORICAL RESULTS K, pl 3.8 3.3 - 4.9 mmol/L HISTORICAL RESULTS Chloride 95(L) 97 - 110 mmol/L HISTORICAL RESULTS CO2 31 22 - 32 mmol/L HISTORICAL RESULTS A. gap 13 0 - 16 mmol/L HISTORICAL RESULTS Glucose 135 70 - 199 mg/dl HISTORICAL RESULTS BUN 42(H) 8 - 25 mg/dl HISTORICAL RESULTS Creatinine 1.11 0.70 - 1.30 mg/dl HISTORICAL RESULTS Calcium 10.3 8.6 - 10.3 mg/dl HISTORICAL RESULTS Plasma 11/09/2013 9:47 AM CDT Marion Funes MD LAB BLOOD ORDERABLES Myrna l Result Performing Organization Address [facility] de Phone Number HISTORICAL RESULTS * (ABNORMAL) Plasma phosphorus (11/09/2013 9:47 AM CDT) Phosphorus, pl 5.7(H) 2.3 - 4.3 mg/dl HISTORICAL RESULTS Plasma 11/09/2013 9:47 AM CDT Marion Funes MD LAB BLOOD ORDERABLES Myrna l Result Performing Organization Address [facility] de Phone Number HISTORICAL RESULTS * Serum magnesium (11/09/2013 9:47 AM CDT) Magnesium 1.8 1.4 - 2.5 mg/dl HISTORICAL RESULTS Serum 11/09/2013 9:47 AM CDT Marion Funes MD LAB BLOOD ORDERABLES Myrna l Result Performing Organization Address [facility] de Phone Number HISTORICAL RESULTS * (ABNORMAL) Blood cell count (CBC) (11/09/2013 9:47 AM CDT) WBC 17.1(H) 3.8 - 9.8 K/cumm HISTORICAL RESULTS RBC 3.64(L) 4.50 - 5.70 M/cumm HISTORICAL RESULTS Hgb 12.2(L) 13.8 - 17.2 g/dl HISTORICAL RESULTS Hct 35.9(L) 40.7 - 50.3 % HISTORICAL RESULTS MCV 98.5(H) 80.0 - 97.6 fl HISTORICAL RESULTS MCH 33.5 26.7 - 33.7 pg HISTORICAL RESULTS MCHC 34.0 32.7 - 35.5 g/dl HISTORICAL RESULTS Rdw 14.3 11.8 - 14.6 % HISTORICAL RESULTS Platelets 597(H) 140 - 440 K/cumm HISTORICAL RESULTS MPV 8.1 6.8 - 10.4 fl HISTORICAL RESULTS Neutrophils 84.4(H) 38.7 - 74.5 % HISTORICAL RESULTS Lymphocytes 6.0(L) 20.0 - 54.3 % HISTORICAL RESULTS Monos 4.7 4.3 - 13.5 % HISTORICAL RESULTS Eosinophils 4.8 0.0 - 6.0 % HISTORICAL RESULTS Basophils 0.1 0.0 - 3.0 % HISTORICAL RESULTS Neutrophils, abs 14.4(H) 1.8 - 6.6 K/cumm HISTORICAL RESULTS Lymphocytes, abs 1.0(L) 1.2 - 3.3 K/cumm HISTORICAL RESULTS Monocytes, absolute 0.8 0.2 - 1.2 K/cumm HISTORICAL RESULTS Eosinophils, abs 0.8(H) 0.0 - 0.5 K/cumm HISTORICAL RESULTS Basophils, abs 0.0 0.0 - 0.2 K/cumm HISTORICAL RESULTS Blood specimen (specimen) 11/09/2013 9:47 AM CDT Marion Funes MD LAB BLOOD ORDERABLES Myrna funes Result HISTORICAL RESULTS * Modified Barium Swallow W Video (11/08/2013 3:40 PM CDT) Anatomical Region Laterality Modality Head and Neck N/A Radiographic Tawanna ging 11/08/2013 3:40 PM CDT Narrative 11/08/2013 4:28 PM CDT ROLO CUEVAS M.D. YVONNE MADERA M.D. FINAL REPORT The radiology attending physician has personally reviewed this study, and has reviewed and/or edited this written report and agrees with it. ACC# ??Date Time ??Exam [id number] Nov 08, 2013 15:40:00 [id number] Mod Swallow EXAMINATION: ?? Modified Barium Swallow HISTORY: Difficulty swallowing TECHNIQUE: ??In conjunction with the speech pathology service, the patient was given barium of multiple different consistencies to swallow. ??Video fluoroscopy was employed during the exam. FINDINGS: The oral stage of swallowing is normal. ??the swallowing response is delayed and initiated at the level of the piriform sinuses. ?? There is mild base of tongue weakness resulting in vallecular residue with pure consistencies. Laryngeal elevation is normal. ??There is normal epiglottic movement. ??There is moderate reduction in pharyngeal strength. There is mild impaired upper esophageal sphincter opening, resulting in residue in the piriform sinuses. There is laryngeal penetration with thin, nectar, and pure consistencies. Aspiration occurred before and during the swallow, in a more than trace amount, with thin and nectar liquids. A cough reflex was triggered but was inconsistent. ?? IMPRESSION: ?? Dysfunctional swallow as described above. Please see speech pathology report for full recommendations. ?? Requested By: MARION FUNES M.D. Dictated By: ?? YVONNE MADERA M.D. ??on Nov 08 2013 ??4:06P This document has been electronically signed by: ROLO CUEVAS M.D. on Nov 08 2013 ??4:28P Procedure Note Provider, MD Mirna - 07/28/2016 ROLO CUEVAS M.D. YVONNE MADERA M.D. FINAL REPORT The radiology attending physician has personally reviewed this study, and has reviewed and/or edited this written report and agrees with it. ACC# Date Time Exam [id number] Nov 08, 2013 15:40:00 41769 Mod Swallow EXAMINATION: Modified Barium Swallow HISTORY: Difficulty swallowing TECHNIQUE: In conjunction with the speech pathology service, the patient was given barium of multiple different consistencies to swallow. Video fluoroscopy was employed during the exam. FINDINGS: The oral stage of swallowing is normal. the swallowing response is delayed and initiated at the level of the piriform sinuses. There is mild base of tongue weakness resulting in vallecular residue with pure consistencies. Laryngeal elevation is normal. There is normal epiglottic movement. There is moderate reduction in pharyngeal strength. There is mild impaired upper esophageal sphincter opening, resulting in residue in the piriform sinuses. There is laryngeal penetration with thin, nectar, and pure consistencies. Aspiration occurred before and during the swallow, in a more than trace amount, with thin and nectar liquids. A cough reflex was triggered but was inconsistent. IMPRESSION: Dysfunctional swallow as described above. Please see speech pathology report for full recommendations. Requested By: MARION FUNES M.D. Dictated By: YVONNE MADERA M.D. on Nov 08 2013 4:06P This document has been electronically signed by: ROLO CUEVAS M.D. on Nov 08 2013 4:28P Historical Provider MD ESTRADA FLUOROSCOPY PROCEDURE S Final Result * (ABNORMAL) Plasma basic metabolic panel (11/05/2013 6:30 PM CDT) Sodium 137 135 - 145 mmol/L HISTORICAL RESULTS K, pl 3.7 3.3 - 4.9 mmol/L HISTORICAL RESULTS Chloride 100 97 - 110 mmol/L HISTORICAL RESULTS CO2 22 22 - 32 mmol/L HISTORICAL RESULTS A. gap 15 0 - 16 mmol/L HISTORICAL RESULTS Glucose 97 70 - 199 mg/dl HISTORICAL RESULTS BUN 27(H) 8 - 25 mg/dl HISTORICAL RESULTS Creatinine 0.96 0.70 - 1.30 mg/dl HISTORICAL RESULTS Calcium 9.7 8.6 - 10.3 mg/dl HISTORICAL RESULTS Plasma 11/05/2013 6:30 PM CDT Mirela Wilder MD PhD LAB BLOOD ORDERABL ES Final Result Performing Organization Address [facility] de Phone Number HISTORICAL RESULTS * (ABNORMAL) Plasma phosphorus (11/05/2013 6:30 PM CDT) Phosphorus, pl 5.7(H) 2.3 - 4.3 mg/dl HISTORICAL RESULTS Plasma 11/05/2013 6:30 PM CDT Mirela Wlider MD PhD LAB BLOOD ORDERABL ES Final Result Performing Organization Address [facility] Co de Phone Number HISTORICAL RESULTS * Serum magnesium (11/05/2013 6:30 PM CDT) Magnesium 1.9 1.4 - 2.5 mg/dl HISTORICAL RESULTS Serum 11/05/2013 6:30 PM CDT Mirela Wilder MD PhD LAB BLOOD ORDERABL ES Final Result Performing Organization Address [facility] de Phone Number HISTORICAL RESULTS * Plasma basic metabolic panel (11/05/2013 7:39 AM CDT) Sodium 138 135 - 145 mmol/L HISTORICAL RESULTS K, pl 3.7 3.3 - 4.9 mmol/L HISTORICAL RESULTS Chloride 101 97 - 110 mmol/L HISTORICAL RESULTS CO2 22 22 - 32 mmol/L HISTORICAL RESULTS A. gap 15 0 - 16 mmol/L HISTORICAL RESULTS Glucose 117 70 - 199 mg/dl HISTORICAL RESULTS BUN 23 8 - 25 mg/dl HISTORICAL RESULTS Creatinine 0.94 0.70 - 1.30 mg/dl HISTORICAL RESULTS Calcium 10.2 8.6 - 10.3 mg/dl HISTORICAL RESULTS Plasma 11/05/2013 7:39 AM CDT Viky Ndiaye MD LAB BLOOD ORDERAB LES Final Result Performing Organization Address [facility] de Phone Number HISTORICAL RESULTS * (ABNORMAL) Plasma phosphorus (11/05/2013 7:39 AM CDT) Phosphorus, pl 5.4(H) 2.3 - 4.3 mg/dl HISTORICAL RESULTS Plasma 11/05/2013 7:39 AM CDT Viky Ndiaye MD LAB BLOOD ORDERAB LES Final Result Performing Organization Address [facility] de Phone Number HISTORICAL RESULTS * Serum magnesium (11/05/2013 7:39 AM CDT) Magnesium 1.7 1.4 - 2.5 mg/dl HISTORICAL RESULTS Serum 11/05/2013 7:39 AM CDT Viky Ndiaye MD LAB BLOOD ORDERAB LES Final Result Performing Organization Address [facility] de Phone Number HISTORICAL RESULTS * (ABNORMAL) Plasma comprehensive metabolic panel (11/04/2013 12:47 AM CDT) Sodium 142 135 - 145 mmol/L HISTORICAL RESULTS K, pl 4.0 3.3 - 4.9 mmol/L HISTORICAL RESULTS Chloride 107 97 - 110 mmol/L HISTORICAL RESULTS CO2 24 22 - 32 mmol/L HISTORICAL RESULTS A. gap 11 0 - 16 mmol/L HISTORICAL RESULTS Glucose 98 70 - 199 mg/dl HISTORICAL RESULTS BUN 18 8 - 25 mg/dl HISTORICAL RESULTS Creatinine 0.91 0.70 - 1.30 mg/dl HISTORICAL RESULTS Calcium 9.4 8.6 - 10.3 mg/dl HISTORICAL RESULTS Protein, pl 7.5 6.5 - 8.5 g/dl HISTORICAL RESULTS Alb 3.4(L) 3.6 - 5.0 g/dl HISTORICAL RESULTS Bilirubin 0.4 0.3 - 1.1 mg/dl HISTORICAL RESULTS Alk phos 66 38 - 126 Units/L HISTORICAL RESULTS AST 40 11 - 47 Units/L HISTORICAL RESULTS ALT 45 7 - 53 Units/L HISTORICAL RESULTS Plasma 11/04/2013 12:4 7 AM CDT Historical Provider LAB BLOOD ORDERABLES Myrna l Result Performing Organization Address [facility] de Phone Number HISTORICAL RESULTS * (ABNORMAL) Plasma phosphorus (11/04/2013 12:47 AM CDT) Phosphorus, pl 4.9(H) 2.3 - 4.3 mg/dl HISTORICAL RESULTS Plasma 11/04/2013 12:4 7 AM CDT Historical Provider MD LAB BLOOD ORDERABLES Myrna l Result Performing Organization Address [place]/[facility] Co de Phone Number HISTORICAL RESULTS * Serum magnesium (11/04/2013 12:47 AM CDT) Magnesium 1.9 1.4 - 2.5 mg/dl HISTORICAL RESULTS Serum 11/04/2013 12:4 7 AM CDT Historical Provider MD LAB BLOOD ORDERABLES Myrna l Result HISTORICAL RESULTS * (ABNORMAL) Blood cell count (CBC) (11/04/2013 12:47 AM CDT) Pathologist [facility] WBC 12.5(H) 3.8 - 9.8 K/cumm HISTORICAL RESULTS RBC 3.02(L) 4.50 - 5.70 M/cumm HISTORICAL RESULTS Hgb 10.0(L) 13.8 - 17.2 g/dl HISTORICAL RESULTS Hct 29.5(L) 40.7 - 50.3 % HISTORICAL RESULTS MCV 97.7(H) 80.0 - 97.6 fl HISTORICAL RESULTS MCH 33.1 26.7 - 33.7 pg HISTORICAL RESULTS MCHC 33.9 32.7 - 35.5 g/dl HISTORICAL RESULTS Rdw 13.6 11.8 - 14.6 % HISTORICAL RESULTS Platelets 722(H) 140 - 440 K/cumm HISTORICAL RESULTS MPV 8.1 6.8 - 10.4 fl HISTORICAL RESULTS Neutrophils 73.3 38.7 - 74.5 % HISTORICAL RESULTS Lymphocytes 16.5(L) 20.0 - 54.3 % HISTORICAL RESULTS Monos 5.8 4.3 - 13.5 % HISTORICAL RESULTS Eosinophils 3.6 0.0 - 6.0 % HISTORICAL RESULTS Basophils 0.8 0.0 - 3.0 % HISTORICAL RESULTS Neutrophils, abs 9.2(H) 1.8 - 6.6 K/cumm HISTORICAL RESULTS Lymphocytes, abs 2.1 1.2 - 3.3 K/cumm HISTORICAL RESULTS Monocytes, absolute 0.7 0.2 - 1.2 K/cumm HISTORICAL RESULTS Eosinophils, abs 0.4 0.0 - 0.5 K/cumm HISTORICAL RESULTS Basophils, abs 0.1 0.0 - 0.2 K/cumm HISTORICAL RESULTS Blood specimen (specimen) 11/04/2013 12:47 AM CDT Phil Rodriguez MD PhD LAB BLOOD ORDER ECHO Final Result HISTORICAL RESULTS * (ABNORMAL) Plasma basic metabolic panel (11/03/2013 2:09 AM CDT) [facility] Sodium 138 135 - 145 mmol/L HISTORICAL RESULTS K, pl 4.3 3.3 - 4.9 mmol/L HISTORICAL RESULTS Comment: Hemolyzed; (+++); potassium value may be falsely elevated by as much as 0.6 - 1.0 mmol/L. Suggest redraw and reanalysis. Chloride 103 97 - 110 mmol/L HISTORICAL RESULTS CO2 21(L) 22 - 32 mmol/L HISTORICAL RESULTS A. gap 14 0 - 16 mmol/L HISTORICAL RESULTS Glucose 97 70 - 199 mg/dl HISTORICAL RESULTS BUN 20 8 - 25 mg/dl HISTORICAL RESULTS Creatinine 0.85 0.70 - 1.30 mg/dl HISTORICAL RESULTS Calcium 9.6 8.6 - 10.3 mg/dl HISTORICAL RESULTS Plasma 11/03/2013 2:09 AM CDT Phil Rodriguez MD PhD LAB BLOOD ORDER ECHO Final Result HISTORICAL RESULTS * (ABNORMAL) Blood cell count (CBC) (11/03/2013 2:09 AM CDT) Pathologist [facility] WBC 16.9(H) 3.8 - 9.8 K/cumm HISTORICAL RESULTS RBC 2.98(L) 4.50 - 5.70 M/cumm HISTORICAL RESULTS Hgb 9.9(L) 13.8 - 17.2 g/dl HISTORICAL RESULTS Hct 28.9(L) 40.7 - 50.3 % HISTORICAL RESULTS MCV 96.8 80.0 - 97.6 fl HISTORICAL RESULTS MCH 33.3 26.7 - 33.7 pg HISTORICAL RESULTS MCHC 34.5 32.7 - 35.5 g/dl HISTORICAL RESULTS Rdw 13.7 11.8 - 14.6 % HISTORICAL RESULTS Platelets 616(H) 140 - 440 K/cumm HISTORICAL RESULTS MPV 8.5 6.8 - 10.4 fl HISTORICAL RESULTS Neutrophils 80.3(H) 38.7 - 74.5 % HISTORICAL RESULTS Lymphocytes 10.9(L) 20.0 - 54.3 % HISTORICAL RESULTS Monos 5.0 4.3 - 13.5 % HISTORICAL RESULTS Eosinophils 3.5 0.0 - 6.0 % HISTORICAL RESULTS Basophils 0.3 0.0 - 3.0 % HISTORICAL RESULTS Neutrophils, abs 13.6(H) 1.8 - 6.6 K/cumm HISTORICAL RESULTS Lymphocytes, abs 1.9 1.2 - 3.3 K/cumm HISTORICAL RESULTS Monocytes, absolute 0.8 0.2 - 1.2 K/cumm HISTORICAL RESULTS Eosinophils, abs 0.6(H) 0.0 - 0.5 K/cumm HISTORICAL RESULTS Basophils, abs 0.0 0.0 - 0.2 K/cumm HISTORICAL RESULTS Blood specimen (specimen) 11/03/2013 2:09 AM CDT Phil Rodriguez MD PhD LAB BLOOD ORDER ECHO Final Result Performing Organization Address [facility] de Phone Number HISTORICAL RESULTS * Plasma basic metabolic panel (11/02/2013 2:54 AM CDT) Sodium 140 135 - 145 mmol/L HISTORICAL RESULTS K, pl 4.2 3.3 - 4.9 mmol/L HISTORICAL RESULTS Chloride 105 97 - 110 mmol/L HISTORICAL RESULTS CO2 23 22 - 32 mmol/L HISTORICAL RESULTS A. gap 12 0 - 16 mmol/L HISTORICAL RESULTS Glucose 119 70 - 199 mg/dl HISTORICAL RESULTS BUN 21 8 - 25 mg/dl HISTORICAL RESULTS Calcium 9.5 8.6 - 10.3 mg/dl HISTORICAL RESULTS Creatinine 0.92 0.70 - 1.30 mg/dl HISTORICAL RESULTS Plasma 11/02/2013 2:54 AM CDT Juani Grier MD LAB BLOOD ORDERABLES Myrna l Result Performing Organization Address City/State/[facility] Co de Phone Number HISTORICAL RESULTS * (ABNORMAL) Blood cell count (CBC) (11/02/2013 2:54 AM CDT) WBC 13.3(H) 3.8 - 9.8 K/cumm HISTORICAL RESULTS RBC 2.94(L) 4.50 - 5.70 M/cumm HISTORICAL RESULTS Hgb 9.8(L) 13.8 - 17.2 g/dl HISTORICAL RESULTS Hct 28.4(L) 40.7 - 50.3 % HISTORICAL RESULTS MCV 96.4 80.0 - 97.6 fl HISTORICAL RESULTS MCH 33.4 26.7 - 33.7 pg HISTORICAL RESULTS MCHC 34.6 32.7 - 35.5 g/dl HISTORICAL RESULTS Rdw 13.5 11.8 - 14.6 % HISTORICAL RESULTS Platelets 619(H) 140 - 440 K/cumm HISTORICAL RESULTS MPV 8.0 6.8 - 10.4 fl HISTORICAL RESULTS Neutrophils 75.8(H) 38.7 - 74.5 % HISTORICAL RESULTS Lymphocytes 14.4(L) 20.0 - 54.3 % HISTORICAL RESULTS Monos 5.4 4.3 - 13.5 % HISTORICAL RESULTS Eosinophils 3.9 0.0 - 6.0 % HISTORICAL RESULTS Basophils 0.5 0.0 - 3.0 % HISTORICAL RESULTS Neutrophils, abs 10.1(H) 1.8 - 6.6 K/cumm HISTORICAL RESULTS Lymphocytes, abs 1.9 1.2 - 3.3 K/cumm HISTORICAL RESULTS Monocytes, absolute 0.7 0.2 - 1.2 K/cumm HISTORICAL RESULTS Eosinophils, abs 0.5 0.0 - 0.5 K/cumm HISTORICAL RESULTS Basophils, abs 0.1 0.0 - 0.2 K/cumm HISTORICAL RESULTS Blood specimen (specimen) 11/02/2013 2:54 AM CDT Juani Grier MD LAB BLOOD ORDERABLES Myrna l Result HISTORICAL RESULTS * VASCULAR LABORATORY REPORT (11/02/2013) Anatomical Region Laterality Modality Ultrasound Narrative 11/02/2013 Ordered by an unspecified provider. Historical Provider CV VASCULAR PROCEDURES Fi nal Result * Place G-tube (11/01/2013 10:54 AM CDT) Anatomical Region Laterality Modality Body N/A X-Ray Angiograph y 11/01/2013 10:5 4 AM CDT Narrative 11/02/2013 5:17 PM CDT NICOLAS TO M.D. MARLEN ROMERO M.D. FINAL REPORT The radiology attending physician has personally reviewed this study, and has reviewed and/or edited this written report and agrees with it. ACC# ??Date Time ??Exam [id number] Nov 01, 2013 10:54:00 [id number] G Tube Placemnt EXAMINATION: ?? 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 We have been consulted for gastrostomy tube placement. ATTENDING PRESENCE: Dr. To, the attending radiologist, was present from the beginning to the end of the procedure. SEDATION: Moderate sedation was administered under the attending physician's direction and continuous monitoring by a trained nurse specialist who was independent from those actually performing the procedure. ??Total monitored sedation time was 20 minutes. TECHNIQUE: ??The risks, benefits and alternatives were discussed and informed consent was obtained. Prior to beginning the procedure, [place] Protocol was performed to confirm the patient's identity and the planned procedure. The fluoroscopy time has been recorded in the electronic medical record. ??Maximum sterile barriers including cap, mask, hand hygiene, sterile gloves, sterile gown, large sterile drape and 2% chlorhexidine for cutaneous antisepsis were used. The skin over the stomach was sterilely prepped, draped and infiltrated with 1% lidocaine and 1 mg of intravenous glucagon was administered. The existing NG tube was used to inject air to distend the stomach and fluoroscopy was used to determine a safe tract to the stomach. ?? The stomach was then accessed with a sheathed needle. ??The tract was dilated over a guidewire to 14 [place] and a 14 [place] locking pigtail catheter was advanced into the stomach. ??The catheter was secured to the skin with 0-Prolene and connected to gravity drainage. ESTIMATED BLOOD LOSS: ??Minimal. CONDITION: Stable. DISCHARGED TO: Recovery and then to inpatient unit. FINDINGS: ??Final fluoroscopic images demonstrate the gastrostomy catheter with its tip in the body of the stomach. ??No complications are identified. IMPRESSION: ?? Successful placement of a 14 fr gastrostomy catheter. PLAN: ??The gastrostomy catheter will remain to gravity drainage overnight. It may be used for administration of liquid medications. The tube should be capped after administration of the medication for an hour and then reconnected to gravity drainage. The output should be recorded every shift. ??The patient will be examined in the morning prior to clearing the catheter for usage for tube feeds. ??Feedings will likely start in a day and be advanced to goal before discharge. Requested By: CLAUDIA CONDON Dictated By: ?? MARLEN ROMERO M.D. ??on Oct ??2013 ??5:06P This document has been electronically signed by: NICOLAS TO M.D. on Oct?2013 ??5:17P Procedure Note Provider, MD Mirna - 07/28/2016 NICOLAS TO M.D. MARLEN ROMERO M.D. FINAL REPORT The radiology attending physician has personally reviewed this study, and has reviewed and/or edited this written report and agrees with it. ACC# Date Time Exam [id number] Nov 01, 2013 10:54:00 [id number] G Tube Placemnt EXAMINATION: PERCUTANEOUS GASTROSTOMY CATHETER PLACEMENT HISTORY/INDICATION: 58-year-old with left MCA stroke status post decompressive hemicraniectomy requiring nutritional support. We have been consulted for gastrostomy tube placement. ATTENDING PRESENCE: Dr. To, the attending radiologist, was present from the beginning to the end of the procedure. SEDATION: Moderate sedation was administered under the attending physician's direction and continuous monitoring by a trained nurse specialist who was independent from those actually performing the procedure. Total monitored sedation time was 20 minutes. TECHNIQUE: The risks, benefits and alternatives were discussed and informed consent was obtained. Prior to beginning the procedure, [place] Protocol was performed to confirm the patient's identity and the planned procedure. The fluoroscopy time has been recorded in the electronic medical record. Maximum sterile barriers including cap, mask, hand hygiene, sterile gloves, sterile gown, large sterile drape and 2% chlorhexidine for cutaneous antisepsis were used. The skin over the stomach was sterilely prepped, draped and infiltrated with 1% lidocaine and 1 mg of intravenous glucagon was administered. The existing NG tube was used to inject air to distend the stomach and fluoroscopy was used to determine a safe tract to the stomach. The stomach was then accessed with a sheathed needle. The tract was dilated over a guidewire to 14 [place] and a 14 [place]ayan locking pigtail catheter was advanced into the stomach. The catheter was secured to the skin with 0-Prolene and connected to gravity drainage. ESTIMATED BLOOD LOSS: Minimal. CONDITION: Stable. DISCHARGED TO: Recovery and then to inpatient unit. FINDINGS: Final fluoroscopic images demonstrate the gastrostomy catheter with its tip in the body of the stomach. No complications areidentified. IMPRESSION: Successful placement of a 14 fr gastrostomy catheter. PLAN: The gastrostomy catheter will remain to gravity drainage overnight. It may be used for administration of liquid medications. The tube should be capped after administration of the medication for an hour and then reconnected to gravity drainage. The output should be recorded every shift. The patient will be examined in the morning prior to clearing the catheter for usage for tube feeds. Feedings will likely start in a day and be advanced to goal before discharge. Requested By: CLAUDIA CONDON ANP Dictated By: MARLEN ROMERO M.D. on Nov 01 2013 5:06P This document has been electronically signed by: NICOLAS TO M.D. on Nov 02 2013 5:17P Historical Provider MD ESTRADA IR PROCEDURES Final R esult * Blood ABO, Rh, indirect ab screen (11/01/2013 12:16 AM CDT) ABO, Rho(D) O Positive HISTORI SHALA RESULTS Madhavi, indirect Negative HISTORICAL RESULTS Blood specimen (specimen) 11/01/2013 12:16 AM CDT Bonnie Aldridge LAB BLOOD ORDERABLES Final Resul t HISTORICAL RESULTS * Plasma partial thromboplastin time (PTT) (11/01/2013 12:16 AM CDT) APTT 32.5 25.0 - 37.0 seconds HISTORICAL RESULTS Comment: Interpretive Data Therapeutic heparin range:60.0 - 94.0 sec based on correlation with therapeutic heparin activity range of 0.3 -0.7 Units/mL. Current interpretive data was last revised on 2011. Plasma 11/01/2013 12:1 6 AM CDT us Bonnie Aldridge LAB BLOOD ORDERABLES Final Resul t Performing Organization Address [facility] de Phone Number HISTORICAL RESULTS * (ABNORMAL) Plasma prothrombin time (PT) (11/01/2013 12:16 AM CDT) Prothrombin time (PT) 14.1(H) 9.0 - 12.0 seconds HISTORICAL RESULTS INR 1.33(H) 0.90 - 1.20 HISTORIC AL RESULTS Comment: Interpretive Data Inpatient therapeutic ranges* Atrial fibrillation ?2.0-3.0 INR Venous thrombo-embolism ?2.0-3.0 INR Bioprosthetic heart valve ?* Mechanical heart valve, bileaflet or tilting disk,aortic position ? 2.0-3.0 INR All other,or bileaflet or tilting disk, in mitral position ? 2.5-3.5 INR *See the pharmacy resource directory (PHRED) for an updated copy of the Tool Book at [email or web address] Current Interpretive Data was last revised 2011. Plasma 11/01/2013 12:1 6 AM CDT Bonnie Aldridge LAB BLOOD ORDERABLES Final Resul t Performing Organization Address [facility] de Phone Number HISTORICAL RESULTS * (ABNORMAL) Plasma basic metabolic panel (11/01/2013 12:16 AM CDT) Sodium 138 135 - 145 mmol/L HISTORICAL RESULTS K, pl 3.8 3.3 - 4.9 mmol/L HISTORICAL RESULTS Chloride 103 97 - 110 mmol/L HISTORICAL RESULTS CO2 23 22 - 32 mmol/L HISTORICAL RESULTS A. gap 12 0 - 16 mmol/L HISTORICAL RESULTS Glucose 128 70 - 199 mg/dl HISTORICAL RESULTS BUN 27(H) 8 - 25 mg/dl HISTORICAL RESULTS Creatinine 1.03 0.70 - 1.30 mg/dl HISTORICAL RESULTS Calcium 9.0 8.6 - 10.3 mg/dl HISTORICAL RESULTS Plasma 11/01/2013 12:1 6 AM CDT us Juani Grier MD LAB BLOOD ORDERABLES Myrna l Result HISTORICAL RESULTS * (ABNORMAL) Blood cell count (CBC) (11/01/2013 12:16 AM CDT) WBC 15.3(H) 3.8 - 9.8 K/cumm HISTORICAL RESULTS RBC 2.93(L) 4.50 - 5.70 M/cumm HISTORICAL RESULTS Hgb 9.8(L) 13.8 - 17.2 g/dl HISTORICAL RESULTS Hct 29.2(L) 40.7 - 50.3 % HISTORICAL RESULTS MCV 99.8(H) 80.0 - 97.6 fl HISTORICAL RESULTS MCH 33.4 26.7 - 33.7 pg HISTORICAL RESULTS MCHC 33.4 32.7 - 35.5 g/dl HISTORICAL RESULTS Rdw 13.1 11.8 - 14.6 % HISTORICAL RESULTS Platelets 617(H) 140 - 440 K/cumm HISTORICAL RESULTS MPV 8.3 6.8 - 10.4 fl HISTORICAL RESULTS Neutrophils 75.0(H) 38.7 - 74.5 % HISTORICAL RESULTS Lymphocytes 14.4(L) 20.0 - 54.3 % HISTORICAL RESULTS Monos 5.9 4.3 - 13.5 % HISTORICAL RESULTS Eosinophils 4.4 0.0 - 6.0 % HISTORICAL RESULTS Basophils 0.3 0.0 - 3.0 % HISTORICAL RESULTS Neutrophils, abs 11.5(H) 1.8 - 6.6 K/cumm HISTORICAL RESULTS Lymphocytes, abs 2.2 1.2 - 3.3 K/cumm HISTORICAL RESULTS Monocytes, absolute 0.9 0.2 - 1.2 K/cumm HISTORICAL RESULTS Eosinophils, abs 0.7(H) 0.0 - 0.5 K/cumm HISTORICAL RESULTS Basophils, abs 0.1 0.0 - 0.2 K/cumm HISTORICAL RESULTS Blood specimen (specimen) 11/01/2013 12:16 AM CDT us Juani Grier MD LAB BLOOD ORDERABLES Myrna l Result HISTORICAL RESULTS * XR Chest 1 View (10/31/2013 5:03 AM CDT) Anatomical Region Laterality Modality Body, Chest N/A Radiographic Tawanna ging 10/31/2013 5:03 AM CDT Narrative 10/31/2013 10:45 AM CDT HUGO WU M.D. FINAL REPORT ACC# ??Date Time ??Exam [id number] Oct 31, 2013 05:03:00 [id number] Chest 1 view Frontal EXAMINATION: ?? CHEST, FRONTAL VIEW IMPRESSION: ?? Distal tip of the nasogastric tube is below the inferior edge of the radiograph, likely in the stomach. No pulmonary infiltrates. Compared to the examination of 10/30/2013, there has been no change. Requested By: CHESTER HERNANDEZ M.D. Dictated By: ?? HUGO WU M.D. ??on Oct ??2013 10:45A This document has been electronically signed by: HUGO WU M.D. on Oct 10:45A Procedure Note Provider, MD Mirna - 07/28/2016 HUGO WU M.D. FINAL REPORT ACC# Date Time Exam [id number] Oct 31, 2013 05:03:00 [id number] Chest 1 view Frontal EXAMINATION: CHEST, FRONTAL VIEW IMPRESSION: Distal tip of the nasogastric tube is below the inferior edge of the radiograph, likely in the stomach. No pulmonary infiltrates. Compared to the examination of 10/30/2013, there has been no change. Requested By: CHESTER HERNANDEZ M.D. Dictated By: HUGO WU M.D. on Oct 31 2013 10:45A This document has been electronically signed by: HUGO WU M.D. on Oct 31 2013 10:45A us Historical Provider [facility] XR PROCEDURES Final R esult * ABDOMINAL RADIOGRAPHY, FRONTAL (AP) (10/31/2013 2:09 AM CDT) Anatomical Region Laterality Modality N/A Radiographic Tawanna ging 10/31/2013 2:09 AM CDT Narrative 10/31/2013 9:27 AM CDT HUGO WU M.D. FINAL REPORT ACC# ??Date Time ??Exam [id number] Oct 31, 2013 02:09:00 [id number] Abdomen single view AP EXAMINATION: ?? Abdomen one view IMPRESSION: ?The distal tip of the nasogastric tube is located in the proximal stomach, the side-port distal to the gastroesophageal junction. Normal bowel gas pattern. Changes of lumbar spine surgery seen. Requested By: LAUREL BRITO M.D. Dictated By: ?? HUGO WU M.D. ??on Oct?2013 ??9:27A This document has been electronically signed by: HUGO WU M.D. on Oct?2013 ??9:27A Procedure Note Provider, Mirna, - 07/28/2016 HUGO WU M.D. FINAL REPORT ACC# Date Time Exam [id number] Oct 31, 2013 02:09:00 [id number] Abdomen single view AP EXAMINATION: Abdomen one view IMPRESSION: The distal tip of the nasogastric tube is located in the proximal stomach, the side-port distal to the gastroesophageal junction. Normal bowel gas pattern. Changes of lumbar spine surgery seen. Requested By: LAUREL BRITO M.D. Dictated By: HUGO WU M.D. on Oct 31 2013 9:27A This document has been electronically signed by: HUGO WU M.D. on Oct 31 2013 9:27A Historical Provider MD ESTRADA XR PROCEDURES Final R esult * (ABNORMAL) Plasma comprehensive metabolic panel (10/31/2013 12:21 AM CDT) Sodium 137 135 - 145 mmol/L HISTORICAL RESULTS K, pl 3.7 3.3 - 4.9 mmol/L HISTORICAL RESULTS Chloride 103 97 - 110 mmol/L HISTORICAL RESULTS CO2 22 22 - 32 mmol/L HISTORICAL RESULTS A. gap 12 0 - 16 mmol/L HISTORICAL RESULTS Glucose 157 70 - 199 mg/dl HISTORICAL RESULTS BUN 25 8 - 25 mg/dl HISTORICAL RESULTS Creatinine 0.88 0.70 - 1.30 mg/dl HISTORICAL RESULTS Calcium 9.5 8.6 - 10.3 mg/dl HISTORICAL RESULTS Protein, pl 7.5 6.5 - 8.5 g/dl HISTORICAL RESULTS Alb 3.3(L) 3.6 - 5.0 g/dl HISTORICAL RESULTS Bilirubin 0.3 0.3 - 1.1 mg/dl HISTORICAL RESULTS Alk phos 58 38 - 126 Units/L HISTORICAL RESULTS AST 56(H) 11 - 47 Units/L HISTORICAL RESULTS ALT 67(H) 7 - 53 Units/L HISTORICAL RESULTS Plasma 10/31/2013 12:2 1 AM CDT Juani Grier MD LAB BLOOD ORDERABLES Myrna l Result Performing Organization Address City/[facility] de Phone Number HISTORICAL RESULTS * Plasma phosphorus (10/31/2013 12:21 AM CDT) Phosphorus, pl 4.0 2.3 - 4.3 mg/dl HISTORICAL RESULTS Plasma 10/31/2013 12:2 1 AM CDT Historical Provider LAB BLOOD ORDERABLES Myrna l Result HISTORICAL RESULTS * Serum magnesium (10/31/2013 12:21 AM CDT) Magnesium 2.0 1.4 - 2.5 mg/dl HISTORICAL RESULTS Serum 10/31/2013 12:2 1 AM CDT Historical Provider LAB BLOOD ORDERABLES Myrna l Result HISTORICAL RESULTS * (ABNORMAL) Blood cell count (CBC) (10/31/2013 12:21 AM CDT) WBC 15.6(H) 3.8 - 9.8 K/cumm HISTORICAL RESULTS RBC 2.92(L) 4.50 - 5.70 M/cumm HISTORICAL RESULTS Hgb 9.6(L) 13.8 - 17.2 g/dl HISTORICAL RESULTS Hct 28.3(L) 40.7 - 50.3 % HISTORICAL RESULTS MCV 97.1 80.0 - 97.6 fl HISTORICAL RESULTS MCH 33.0 26.7 - 33.7 pg HISTORICAL RESULTS MCHC 34.0 32.7 - 35.5 g/dl HISTORICAL RESULTS Rdw 13.4 11.8 - 14.6 % HISTORICAL RESULTS Platelets 583(H) 140 - 440 K/cumm HISTORICAL RESULTS MPV 8.4 6.8 - 10.4 fl HISTORICAL RESULTS Neutrophils 78.8(H) 38.7 - 74.5 % HISTORICAL RESULTS Lymphocytes 10.3(L) 20.0 - 54.3 % HISTORICAL RESULTS Monos 5.5 4.3 - 13.5 % HISTORICAL RESULTS Eosinophils 4.9 0.0 - 6.0 % HISTORICAL RESULTS Basophils 0.5 0.0 - 3.0 % HISTORICAL RESULTS Neutrophils, abs 12.3(H) 1.8 - 6.6 K/cumm HISTORICAL RESULTS Lymphocytes, abs 1.6 1.2 - 3.3 K/cumm HISTORICAL RESULTS Monocytes, absolute 0.9 0.2 - 1.2 K/cumm HISTORICAL RESULTS Eosinophils, abs 0.8(H) 0.0 - 0.5 K/cumm HISTORICAL RESULTS Basophils, abs 0.1 0.0 - 0.2 K/cumm HISTORICAL RESULTS Blood specimen (specimen) 10/31/2013 12:21 AM CDT us Juani Grier MD LAB BLOOD ORDERABLES Myrna funes Result HISTORICAL RESULTS * Blood consistent result (10/31/2013 12:21 AM CDT) Consistent result Consistent with previous results HISTORICAL RESULTS Blood specimen (specimen) 10/31/2013 12:21 AM CDT Juani Grier MD LAB BLOOD ORDERABLES Myrna l Result Performing Organization Address [facility] de Phone Number HISTORICAL RESULTS * Clostridium difficile toxin (10/30/2013 1:19 PM CDT) Stool (Unknown) 10/30/2013 1 :19 PM CDT 10/30/2013 2:34 PM CDT Narrative HISTORICAL RESULTS - 10/31/2013 1:35 AM CDT Negative for: Clostridium difficile toxin. Historical Provider LAB MICROBIOLOGY - GENERA L ORDERABLES Final Result Performing Organization Address [facility] de Phone Number HISTORICAL RESULTS * Plasma basic metabolic panel (10/30/2013 2:08 AM CDT) Sodium 139 135 - 145 mmol/L HISTORICAL RESULTS K, pl 3.8 3.3 - 4.9 mmol/L HISTORICAL RESULTS Chloride 105 97 - 110 mmol/L HISTORICAL RESULTS CO2 27 22 - 32 mmol/L HISTORICAL RESULTS A. gap 7 0 - 16 mmol/L HISTORICAL RESULTS Glucose 132 70 - 199 mg/dl HISTORICAL RESULTS BUN 24 8 - 25 mg/dl HISTORICAL RESULTS Creatinine 0.92 0.70 - 1.30 mg/dl HISTORICAL RESULTS Calcium 9.0 8.6 - 10.3 mg/dl HISTORICAL RESULTS Plasma 10/30/2013 2:08 AM CDT Juani Grier MD LAB BLOOD ORDERABLES Myrna l Result Performing Organization Address [facility] de Phone Number HISTORICAL RESULTS * (ABNORMAL) Blood cell count (CBC) (10/30/2013 2:08 AM CDT) WBC 14.9(H) 3.8 - 9.8 K/cumm HISTORICAL RESULTS RBC 2.64(L) 4.50 - 5.70 M/cumm HISTORICAL RESULTS Hgb 8.8(L) 13.8 - 17.2 g/dl HISTORICAL RESULTS Hct 25.6(L) 40.7 - 50.3 % HISTORICAL RESULTS MCV 97.2 80.0 - 97.6 fl HISTORICAL RESULTS MCH 33.3 26.7 - 33.7 pg HISTORICAL RESULTS MCHC 34.2 32.7 - 35.5 g/dl HISTORICAL RESULTS Rdw 13.1 11.8 - 14.6 % HISTORICAL RESULTS Platelets 548(H) 140 - 440 K/cumm HISTORICAL RESULTS MPV 8.4 6.8 - 10.4 fl HISTORICAL RESULTS Neutrophils 76.1(H) 38.7 - 74.5 % HISTORICAL RESULTS Lymphocytes 11.5(L) 20.0 - 54.3 % HISTORICAL RESULTS Monos 7.2 4.3 - 13.5 % HISTORICAL RESULTS Eosinophils 4.9 0.0 - 6.0 % HISTORICAL RESULTS Basophils 0.3 0.0 - 3.0 % HISTORICAL RESULTS Neutrophils, abs 11.3(H) 1.8 - 6.6 K/cumm HISTORICAL RESULTS Lymphocytes, abs 1.7 1.2 - 3.3 K/cumm HISTORICAL RESULTS Monocytes, absolute 1.1 0.2 - 1.2 K/cumm HISTORICAL RESULTS Eosinophils, abs 0.7(H) 0.0 - 0.5 K/cumm HISTORICAL RESULTS Basophils, abs 0.1 0.0 - 0.2 K/cumm HISTORICAL RESULTS Blood specimen (specimen) 10/30/2013 2:08 AM CDT us Juani Grier MD LAB BLOOD ORDERABLES Myrna l Result HISTORICAL RESULTS * XR Chest 1 View (10/30/2013 1:02 AM CDT) Anatomical Region Laterality Modality Body, Chest N/A Radiographic Tawanna ging 10/30/2013 1:02 AM CDT Narrative 10/30/2013 12:55 PM CDT SANTI ASHER M.D. TONYA LOPEZ, FINAL REPORT The radiology attending physician has personally reviewed this study, and has reviewed and/or edited this written report and agrees with it. ACC# ??Date Time ??Exam [id number] Oct 30, 2013 01:02:00 [id number] Chest 1 view Frontal EXAMINATION: ?? Chest, 1 view ?? IMPRESSION: ?? Comparison is made a prior study dated 10/28/2013. A nasogastric tube courses below the inferior margin of the image. The endotracheal tube has been removed. The image is degraded by respiratory motion, but there has been interval improvement in mild bibasilar atelectasis. There is no pneumothorax seen. The heart size is normal. ?? Requested By: HANS BASS M.D. Dictated By: ?? TONYA LOPEZ, ?? on Oct ??2013 11:24A This document has been electronically signed by: SANTI ASHER M.D. on Oct?2013 12:55P Procedure Note Provider, MD Mirna - 07/28/2016 SANTI ASHER M.D. TONYA LOPEZ, FINAL REPORT The radiology attending physician has personally reviewed this study, and has reviewed and/or edited this written report and agrees with it. ACC# Date Time Exam [id number] Oct 30, 2013 01:02:00 [id number] Chest 1 view Frontal EXAMINATION: Chest, 1 view IMPRESSION: Comparison is made a prior study dated 10/28/2013. A nasogastric tube courses below the inferior margin of the image. The endotracheal tube has been removed. The image is degraded by respiratory motion, but there has been interval improvement in mild bibasilar atelectasis. There is no pneumothorax seen. The heart size is normal. Requested By: HANS BASS M.D. Dictated By: TONYA LOPEZ, on Oct 30 2013 11:24A This document has been electronically signed by: SANTI ASHER M.D. on Oct 30 2013 12:55P us Historical Provider MD ESTRADA XR PROCEDURES Final R esult * All Microbiology Report Section (10/30/2013 12:00 AM CDT) 10/30/2013 Narrative HISTORICAL RESULTS - 11/13/2013 3:59 AM CDT ? [facility] ?[facility] [place] ?[place] [id number] ? Patient Name: ??CURLY ANGELO ? Med Rec Number: [id number] ? Fin Number: ?[id number] ? Date: ?1955 ? Sex/Age: ? Male 58 years ? Admit Date: ?10/19/2013 ? Discharge Date: 11/12/2013 ? Doctor: ?Sherron Mahan ? Facility: ?[facility] ? Location: ?[id number] ?* Abnormal ??A Alert ??f Footnote ??^ Corrected ??L Low ??H High ?i Interp Data ??@ Ref Lab ? Chart Type:Cumulative ?* * * * MICROBIOLOGY - GASTROINTESTINAL * * * * ?PROCEDURE: Clostridium difficile Toxin ? SOURCE: Stool ? COLLECTED: 10/30/13 ??1319 ?BODY SITE: ? STARTED: 10/30/13 ??1434 ? FREE TEXT SOURCE: ? FINAL REPORT ? REPORTED: 10/31/13 0135 ? Negative for: Clostridium difficile toxin. us Historical Provider MD LAB MICROBIOLOGY - GENERA L ORDERABLES Final Result HISTORICAL RESULTS * CT Head WO Contrast (10/29/2013 7:30 AM CDT) Anatomical Region Laterality Modality Head and Neck N/A Computed Tomogra phy 10/29/2013 7:30 AM CDT Narrative 11/01/2013 7:42 AM CDT FLAVIO HELMS MD, PHD SANTI DOWNEY M.D. FINAL REPORT The radiology attending physician has personally reviewed this study, and has reviewed and/or edited this written report and agrees with it. ACC# ??Date Time ??Exam [id number] Oct 29, 2013 07:30:[id number] Head or Brain w/o cont EXAMINATION: ?? Portable noncontrast head CT HISTORY: History of stroke, decompressive hemicraniectomy TECHNIQUE: Noncontrast CT of the brain was performed with axial images acquired from skull base to vertex using a portable CT scanner. COMPARISON: CT head 10/27/2013 FINDINGS: Postsurgical changes are again noted of a left hemicraniectomy. There has been a slight interval increase in the amount of subcutaneous fluid overlying the craniectomy site. Evolving left MCA infarct. There is mild stable midline shift. The ventricles are essentially unchanged in size, with minimal mass effect on the left lateral ventricle. IMPRESSION: ?? 1. Postsurgical changes as noted above. 2. Mild increase in subcutaneous fluid overlying the craniectomy site 3. Evolving left MCA infarct. 4. Stable midline shift and mild mass effect on the left lateral ventricle. Requested By: KANA BETH M.D. Dictated By: ?? SANTI DOWNEY M.D. ??on Oct ??2013 10:56A This document has been electronically signed by: FLAVIO HELMS MD, PHD on Oct ??2013 ??7:41A Procedure Note Provider, MD Mirna - 07/28/2016 FLAVIO HELMS MD, PHD SANTI DOWNEY M.D. FINAL REPORT The radiology attending physician has personally reviewed this study, and has reviewed and/or edited this written report and agrees with it. ACC# Date Time Exam [id number] Oct 29, 2013 07:30:[address] Head or Brain w/o cont EXAMINATION: Portable noncontrast head CT HISTORY: History of stroke, decompressive hemicraniectomy TECHNIQUE: Noncontrast CT of the brain was performed with axial images acquired from skull base to vertex using a portable CT scanner. COMPARISON: CT head 10/27/2013 FINDINGS: Postsurgical changes are again noted of a left hemicraniectomy. There has been a slight interval increase in the amount of subcutaneous fluid overlying the craniectomy site. Evolving left MCA infarct. There is mild stable midline shift. The ventricles are essentially unchanged in size, with minimal mass effect on the left lateral ventricle. IMPRESSION: 1. Postsurgical changes as noted above. 2. Mild increase in subcutaneous fluid overlying the craniectomy site 3. Evolving left MCA infarct. 4. Stable midline shift and mild mass effect on the left lateral ventricle. Requested By: KANA BETH M.D. Dictated By: SANTI DOWNEY M.D. on Oct 29 2013 10:56A This document has been electronically signed by: FLAVIO HELMS MD, PHD on Nov 01 2013 7:41A Historical Provider IMG CT PROCEDURES Final R esult * (ABNORMAL) Blood gas, arterial (10/29/2013 6:41 AM CDT) Pathologist [facility] Ph, art 7.48(H) 7.35 - 7.45 HISTORICAL RESULTS PCO2 34(L) 35 - 45 mm Hg HISTORICAL RESULTS PO2, art 82 80 - 105 mm Hg HISTORICAL RESULTS CO2, calc, art 26 21 - 30 mmol/L HISTORICAL RESULTS A-a gradient Not Applicable mm Hg HI STORICAL RESULTS O2, inspired, %, art Not Applicable % HISTORICAL RESULTS Oxygen (O2), inspired fraction (FiO2) 4.0 liters HISTORICAL RESULTS Arterial blood 10/29/2013 6: 41 AM CDT Juani Grier MD LAB BLOOD ORDERABLES Myrna l Result Performing Organization Address [facility] Co de Phone Number HISTORICAL RESULTS * Blood potassium, mixed venous (10/29/2013 3:25 AM CDT) [facility] Potassium, bld 4.6 3.3 - 4.9 mmol/L HISTORICAL RESULTS Comment: Hemolyzed; potassium value may be falsely elevated by as much as 0.3 - 0.5 mmol/L. Suggest redraw and reanalysis. Mixed venous blood 10/29/2013 3:25 AM CDT Simón Bush MD LAB BLOOD ORDERABLES Final Resul t Performing Organization Address City/[facility] Co de Phone Number HISTORICAL RESULTS * Plasma basic metabolic panel (10/29/2013 12:36 AM CDT) Pathologist [facility] Sodium 139 135 - 145 mmol/L HISTORICAL RESULTS K, pl See Comment 3.3 - 4.9 mmol/L HISTORICAL RESULTS Comment:{CRDT; Grossly Hemol yzed sample; Unable to test.} Chloride 105 97 - 110 mmol/L HISTORICAL RESULTS CO2 25 22 - 32 mmol/L HISTORICAL RESULTS A. gap 9 0 - 16 mmol/L HISTORICAL RESULTS Glucose 122 70 - 199 mg/dl HISTORICAL RESULTS BUN 21 8 - 25 mg/dl HISTORICAL RESULTS Creatinine 0.92 0.70 - 1.30 mg/dl HISTORICAL RESULTS Calcium 9.3 8.6 - 10.3 mg/dl HISTORICAL RESULTS Plasma 10/29/2013 12:3 6 AM CDT Juani Grier MD LAB BLOOD ORDERABLES Myrna funes Result HISTORICAL RESULTS * (ABNORMAL) Blood cell count (CBC) (10/29/2013 12:36 AM CDT) WBC 15.6(H) 3.8 - 9.8 K/cumm HISTORICAL RESULTS RBC 2.77(L) 4.50 - 5.70 M/cumm HISTORICAL RESULTS Hgb 9.2(L) 13.8 - 17.2 g/dl HISTORICAL RESULTS Hct 26.8(L) 40.7 - 50.3 % HISTORICAL RESULTS MCV 96.8 80.0 - 97.6 fl HISTORICAL RESULTS MCH 33.3 26.7 - 33.7 pg HISTORICAL RESULTS MCHC 34.4 32.7 - 35.5 g/dl HISTORICAL RESULTS Rdw 12.6 11.8 - 14.6 % HISTORICAL RESULTS Platelets 560(H) 140 - 440 K/cumm HISTORICAL RESULTS MPV 9.0 6.8 - 10.4 fl HISTORICAL RESULTS Neutrophils 82.8(H) 38.7 - 74.5 % HISTORICAL RESULTS Lymphocytes 8.8(L) 20.0 - 54.3 % HISTORICAL RESULTS Monos 5.5 4.3 - 13.5 % HISTORICAL RESULTS Eosinophils 2.8 0.0 - 6.0 % HISTORICAL RESULTS Basophils 0.1 0.0 - 3.0 % HISTORICAL RESULTS Neutrophils, abs 12.9(H) 1.8 - 6.6 K/cumm HISTORICAL RESULTS Lymphocytes, abs 1.4 1.2 - 3.3 K/cumm HISTORICAL RESULTS Monocytes, absolute 0.9 0.2 - 1.2 K/cumm HISTORICAL RESULTS Eosinophils, abs 0.4 0.0 - 0.5 K/cumm HISTORICAL RESULTS Basophils, abs 0.0 0.0 - 0.2 K/cumm HISTORICAL RESULTS Blood specimen (specimen) 10/29/2013 12:36 AM CDT Juani Grier MD LAB BLOOD ORDERABLES Myrna l Result HISTORICAL RESULTS * Plasma basic metabolic panel (10/28/2013 12:49 PM CDT) Sodium 140 135 - 145 mmol/L HISTORICAL RESULTS K, pl 4.0 3.3 - 4.9 mmol/L HISTORICAL RESULTS Chloride 103 97 - 110 mmol/L HISTORICAL RESULTS CO2 25 22 - 32 mmol/L HISTORICAL RESULTS A. gap 12 0 - 16 mmol/L HISTORICAL RESULTS Glucose 111 70 - 199 mg/dl HISTORICAL RESULTS BUN 22 8 - 25 mg/dl HISTORICAL RESULTS Creatinine 0.90 0.70 - 1.30 mg/dl HISTORICAL RESULTS Calcium 9.4 8.6 - 10.3 mg/dl HISTORICAL RESULTS Plasma 10/28/2013 12:4 9 PM CDT Historical Provider LAB BLOOD ORDERABLES Myrna l Result Performing Organization Address City/[facility]/ZIP Co de Phone Number HISTORICAL RESULTS * XR Chest 1 View (10/28/2013 1:05 AM CDT) Anatomical Region Laterality Modality Body, Chest N/A Radiographic Tawanna ging 10/28/2013 1:05 AM CDT Narrative 10/28/2013 11:13 AM CDT ELIZABETH POOLE M.D. ELIAN KERN M.D. FINAL REPORT The radiology attending physician has personally reviewed this study, and has reviewed and/or edited this written report and agrees with it. ACC# ??Date Time ??Exam [id number] Oct 28, 2013 01:05:00 [id number] Chest 1 view Frontal EXAMINATION: ?? Chest one view IMPRESSION: ?? Comparison is made to prior examination dated 10/27/2013. Endotracheal tube tip terminates approximately 6 cm above the ti. Nasogastric tube courses below the diaphragm. There is bibasilar airspace opacities, right greater than left, likely representing atelectasis, but followup to resolution is recommended to exclude a developing pneumonia. No pneumothorax or pleural effusion. Cardiomediastinal silhouette is unchanged. Requested By: CAGE,CLAUDIA L. ANP Dictated By: ?? ELIAN KERN M.D. ??on Oct 28 2013 10:49A This document has been electronically signed by: ELIZABETH POOLE M.D. on Oct 28 2013 11:13A Procedure Note Provider, MD Mirna - 07/28/2016 ELIZABETH POOLE M.D. ELIAN KERN M.D. FINAL REPORT The radiology attending physician has personally reviewed this study, and has reviewed and/or edited this written report and agrees with it. ACC# Date Time Exam [id number] Oct 28, 2013 01:05:00 [id number] Chest 1 view Frontal EXAMINATION: Chest one view IMPRESSION: Comparison is made to prior examination dated 10/27/2013. Endotracheal tube tip terminates approximately 6 cm above the ti. Nasogastric tube courses below the diaphragm. There is bibasilar airspace opacities, right greater than left, likely representing atelectasis, but followup to resolution is recommended to exclude a developing pneumonia. No pneumothorax or pleural effusion. Cardiomediastinal silhouette is unchanged. Requested By: CLAUDIA CONDON ANP Dictated By: ELIAN KERN M.D. on Oct 28 2013 10:49A This document has been electronically signed by: ELIZABETH POOLE M.D. on Oct 28 2013 11:13A Historical Provider IMG XR PROCEDURES Final R esult * (ABNORMAL) Blood gas, arterial (10/28/2013 12:56 AM CDT) CO2, calc, art 27 21 - 30 mmol/L HISTORICAL RESULTS Ph, art 7.48(H) 7.35 - 7.45 HISTORICAL RESULTS PCO2 35 35 - 45 mm Hg HISTORICAL RESULTS PO2, art 101 80 - 105 mm Hg HISTORICAL RESULTS A-a gradient 142 mm Hg HISTORI SHALA RESULTS O2, inspired, %, art 40 % HISTORICAL RESULTS Oxygen (O2), inspired fraction (FiO2) Not Applicable liters HISTORICAL RESULTS Arterial blood 10/28/2013 12 :56 AM CDT us Juani Grier MD LAB BLOOD ORDERABLES Myrna funes Result HISTORICAL RESULTS * Plasma basic metabolic panel (10/28/2013 12:56 AM CDT) Sodium 142 135 - 145 mmol/L HISTORICAL RESULTS K, pl 3.8 3.3 - 4.9 mmol/L HISTORICAL RESULTS Chloride 105 97 - 110 mmol/L HISTORICAL RESULTS CO2 28 22 - 32 mmol/L HISTORICAL RESULTS A. gap 9 0 - 16 mmol/L HISTORICAL RESULTS Glucose 153 70 - 199 mg/dl HISTORICAL RESULTS BUN 24 8 - 25 mg/dl HISTORICAL RESULTS Creatinine 0.95 0.70 - 1.30 mg/dl HISTORICAL RESULTS Calcium 8.9 8.6 - 10.3 mg/dl HISTORICAL RESULTS Plasma 10/28/2013 12:5 6 AM CDT us Juani Grier MD LAB BLOOD ORDERABLES Myrna l Result Performing Organization Address City/[facility] de Phone Number HISTORICAL RESULTS * (ABNORMAL) Blood cell count (CBC) (10/28/2013 12:56 AM CDT) Pathologist [facility] WBC 11.7(H) 3.8 - 9.8 K/cumm HISTORICAL RESULTS RBC 2.50(L) 4.50 - 5.70 M/cumm HISTORICAL RESULTS Hgb 8.2(L) 13.8 - 17.2 g/dl HISTORICAL RESULTS Hct 24.3(L) 40.7 - 50.3 % HISTORICAL RESULTS MCV 97.2 80.0 - 97.6 fl HISTORICAL RESULTS MCH 32.8 26.7 - 33.7 pg HISTORICAL RESULTS MCHC 33.8 32.7 - 35.5 g/dl HISTORICAL RESULTS Rdw 12.7 11.8 - 14.6 % HISTORICAL RESULTS Platelets 443(H) 140 - 440 K/cumm HISTORICAL RESULTS MPV 8.6 6.8 - 10.4 fl HISTORICAL RESULTS Neutrophils 71.1 38.7 - 74.5 % HISTORICAL RESULTS Lymphocytes 13.8(L) 20.0 - 54.3 % HISTORICAL RESULTS Monos 7.6 4.3 - 13.5 % HISTORICAL RESULTS Eosinophils 6.8(H) 0.0 - 6.0 % HISTORICAL RESULTS Basophils 0.7 0.0 - 3.0 % HISTORICAL RESULTS Neutrophils, abs 8.3(H) 1.8 - 6.6 K/cumm HISTORICAL RESULTS Lymphocytes, abs 1.6 1.2 - 3.3 K/cumm HISTORICAL RESULTS Monocytes, absolute 0.9 0.2 - 1.2 K/cumm HISTORICAL RESULTS Eosinophils, abs 0.8(H) 0.0 - 0.5 K/cumm HISTORICAL RESULTS Basophils, abs 0.1 0.0 - 0.2 K/cumm HISTORICAL RESULTS Blood specimen (specimen) 10/28/2013 12:56 AM CDT Juani Grier MD LAB BLOOD ORDERABLES Myrna l Result Performing Organization Address City/[facility]/ZIP Co de Phone Number HISTORICAL RESULTS * Aerobic culture and Gram stain (10/27/2013 5:21 PM CDT) Sputum (Unknown) 10/27/2013 5:21 PM CDT 10/27/2013 5:21 PM CDT Historical Provider LAB MICROBIOLOGY - GENERA L ORDERABLES Final Result Performing Organization Address [facility] de Phone Number HISTORICAL RESULTS * Urinalysis (10/27/2013 5:19 PM CDT) Color, ur Yellow Yellow HISTORICAL RESULTS Clarity, ur Clear Clear HISTORIC AL RESULTS Specific gravity, ur 1.019 1.003 - 1.030 HISTORICAL RESULTS pH, ur [...] esterase, ur Negative Negative HISTORICAL RESULTS Urine 10/27/2013 5:19 PM CDT Bubba Alvarado LAB BLOOD ORDERABLES Final Res ult Performing Organization Address City/[facility]/ZIP Co de Phone Number HISTORICAL RESULTS * Urine microscopy (10/27/2013 5:19 PM CDT) RBC, ur 2 0 - 3 /hpf HISTORICA L RESULTS WBC, ur 2 0 - 5 /hpf HISTORICA L RESULTS Bacteria, ur Negative Trace HISTORI SHALA RESULTS Epithelial cells, renal, ur 0 0 - 0 /hpf HISTORICAL RESULTS Epithelial cells, squamous, ur 4 /lpf HISTORICAL RESULTS Mucus, ur Small /hpf HISTORICAL RESULTS Urine 10/27/2013 5:19 PM CDT Bubba Alvarado LAB BLOOD ORDERABLES Final Res ult HISTORICAL RESULTS * Urine (aerobic) culture (10/27/2013 5:19 PM CDT) Urine, catheterized (Unknown) 10/27/2013 5:19 PM CDT 10/27/2013 5:39 PM CDT Narrative HISTORICAL RESULTS - 10/29/2013 11:53 AM CDT No growth Historical Provider LAB MICROBIOLOGY - GENERA L ORDERABLES Final Result Performing Organization Address [facility] Co de Phone Number HISTORICAL RESULTS * Blood culture (10/27/2013 5:05 PM CDT) Blood specimen (specimen) (Peripheral) 10/27/2013 5:05 PM CDT 10/27/2013 5:42 PM CDT Impressions HISTORICAL RESULTS - 11/02/2013 2:49 AM CDT Blood cultures are incubated for five days on a continuously monitored blood culture system. ??The first report of a negative culture is issued within 24 hours of receipt of the specimen in the laboratory. ??Positive culture results are reported as soon as they are detected. ??For blood cultures with gram-positive cocci, a rapid molecular test for organism identification may be performed using the [employer] Nanosphere Gram Positive Blood Culture Assay. ??The Nanosphere assay detects microbial DNA in positive blood culture broth via hybridization of target DNA to capture oligonucleotides on a microarray. ??This assay has been cleared by the [place] Food and Drug Administration and its performance characteristics have been verified by the [facility]. Current Interpretive Data was last revised on 2013. Narrative HISTORICAL RESULTS - 11/02/2013 2:49 AM CDT No growth Historical Provider MD LAB MICROBIOLOGY - GENERA L ORDERABLES Final Result Performing Organization Address City/[facility] Co de Phone Number HISTORICAL RESULTS * Blood culture (10/27/2013 5:05 PM CDT) Blood specimen (specimen) (Peripheral) 10/27/2013 5:05 PM CDT 10/27/2013 5:41 PM CDT Impressions HISTORICAL RESULTS - 11/02/2013 2:49 AM CDT Blood cultures are incubated for five days on a continuously monitored blood culture system. ??The first report of a negative culture is issued within 24 hours of receipt of the specimen in the laboratory. ??Positive culture results are reported as soon as they are detected. ??For blood cultures with gram-positive cocci, a rapid molecular test for organism identification may be performed using the [employer] Nanosphere Gram Positive Blood Culture Assay. ??The Nanosphere assay detects microbial DNA in positive blood culture broth via hybridization of target DNA to capture oligonucleotides on a microarray. ??This assay has been cleared by the [place] Food and Drug Administration and its performance characteristics have been verified by the [facility]. Current Interpretive Data was last revised on 2013. Narrative HISTORICAL RESULTS - 11/02/2013 2:49 AM CDT No growth Historical Provider MD LAB MICROBIOLOGY - GENERA L ORDERABLES Final Result Performing Organization Address City/[facility] Co de Phone Number HISTORICAL RESULTS * CT Head WO Contrast (10/27/2013 5:47 AM CDT) Anatomical Region Laterality Modality Head and Neck N/A Computed Tomogra phy 10/27/2013 5:47 AM CDT Narrative 10/28/2013 6:19 PM CDT FLAVIO HELMS MD, PHD JAYSON HENNING M.D. FINAL REPORT The radiology attending physician has personally reviewed this study, and has reviewed and/or edited this written report and agrees with it. ACC# ??Date Time ??Exam [id number] Oct 27, 2013 05:47:[address] Head or Brain w/o cont EXAMINATION: ?? Noncontrast head CT HISTORY: ??Large left MCA ischemic infarct TECHNIQUE: A portable noncontrast CT of the brain was performed with axial images acquired from skull base to vertex. COMPARISON: Portable head CT from 10/22/2013. FINDINGS: There is an evolving, large left middle cerebral artery infarct. There has been interval decompressive left craniectomy with improvement of the rightward midline shift now measuring 3 mm (previously 8 mm). Mass effect on the left lateral ventricle has also improved, now only minimal. The basal cisterns are patent. Nasogastric and endotracheal tube remain in place. The orbits, paranasal sinuses, and mastoids are normal. IMPRESSION: ?? Evolving large left middle cerebral artery infarct with interval decompressive left craniectomy and substantial improvement in rightward midline shift. Requested By: JUANI GRIER M.D. Dictated By: ?? JAYSON HENNING M.D. ??on Oct 27 2013 ??9:30A This document has been electronically signed by: FLAVIO HELMS MD, PHD on Oct 28 2013 ??6:18P Procedure Note Provider, MD Mirna - 07/28/2016 FLAVIO HELMS MD, PHD JAYSON HENNING M.D. FINAL REPORT The radiology attending physician has personally reviewed this study, and has reviewed and/or edited this written report and agrees with it. [facility]# Date Time Exam [id number] Oct 27, 2013 05:47:[address] Head or Brain w/o cont EXAMINATION: Noncontrast head CT HISTORY: Large left MCA ischemic infarct TECHNIQUE: A portable noncontrast CT of the brain was performed with axial images acquired from skull base to vertex. COMPARISON: Portable head CT from 10/22/2013. FINDINGS: There is an evolving, large left middle cerebral artery infarct. There has been interval decompressive left craniectomy with improvement of the rightward midline shift now measuring 3 mm (previously 8 mm). Mass effect on the left lateral ventricle has also improved, now only minimal. The basal cisterns are patent. Nasogastric and endotracheal tube remain in place. The orbits, paranasal sinuses, and mastoids are normal. IMPRESSION: Evolving large left middle cerebral artery infarct with interval decompressive left craniectomy and substantial improvement in rightward midline shift. Requested By: JUANI GRIER M.D. Dictated By: JAYSON HENNING M.D. on Oct 27 2013 9:30A This document has been electronically signed by: FLAVIO HELMS MD, PHD on Oct 28 2013 6:18P us Historical Provider MD ESTRADA CT PROCEDURES Final R esult * XR Chest 1 View (10/27/2013 1:20 AM CDT) Anatomical Region Laterality Modality Body, Chest N/A Radiographic Tawanna ging 10/27/2013 1:20 AM CDT Narrative 10/27/2013 9:36 AM CDT ELIZABETH POOLE M.D. FINAL REPORT ACC# ??Date Time ??Exam [id number] Oct 27, 2013 01:20:00 61507 Chest 1 view Frontal EXAMINATION: ?? One View Portable Chest IMPRESSION: ?? Patchy atelectasis persists at the right lung base much of this is likely atelectasis although is conceivable that there could be a small focus of aspiration pneumonia recommend followup to clearing. Minimal left basilar atelectasis seen. The endotracheal tube is approximately 5 centimeters above the ti. A nasogastric tube is present, tip extends at least to stomach. There is no pneumothorax.. A left costophrenic angle partially excluded . Requested By: CLAUDIA CONDON Dictated By: ?? ELIZABETH POOLE M.D. ??on Oct 27 2013 ??9:36A This document has been electronically signed by: ELIZABETH POOLE M.D. on Oct 27 2013 ??9:36A Procedure Note Provider, MD Mirna - 07/28/2016 ELIZABETH POOLE M.D. FINAL REPORT ACC# Date Time Exam [id number] Oct 27, 2013 01:20:00 [id number] Chest 1 view Frontal EXAMINATION: One View Portable Chest IMPRESSION: Patchy atelectasis persists at the right lung base much of this is likely atelectasis although is conceivable that there could be a small focus of aspiration pneumonia recommend followup to clearing. Minimal left basilar atelectasis seen. The endotracheal tube is approximately 5 centimeters above the ti. A nasogastric tube is present, tip extends at least to stomach. There is no pneumothorax.. A left costophrenic angle partially excluded . Requested By: CLAUDIA CONDON ANP Dictated By: ELIZABETH POOLE M.D. on Oct 27 2013 9:36A This document has been electronically signed by: ELIZABETH POOLE M.D. on Oct 27 2013 9:36A us Historical Provider IMG XR PROCEDURES Final R esult * (ABNORMAL) Blood gas, arterial (10/27/2013 1:11 AM CDT) Ph, art 7.48(H) 7.35 - 7.45 HISTORICAL RESULTS PO2, art 90 80 - 105 mm Hg HISTORICAL RESULTS CO2, calc, art 26 21 - 30 mmol/L HISTORICAL RESULTS PCO2 34(L) 35 - 45 mm Hg HISTORICAL RESULTS A-a gradient 154 mm Hg HISTORI SHALA RESULTS O2, inspired, %, art 40 % HISTORICAL RESULTS Oxygen (O2), inspired fraction (FiO2) Not Applicable liters HISTORICAL RESULTS Arterial blood 10/27/2013 1: 11 AM CDT Juani Grier MD LAB BLOOD ORDERABLES Myrna funes Result HISTORICAL RESULTS * (ABNORMAL) Blood cell count (CBC) (10/27/2013 12:52 AM CDT) WBC 12.9(H) 3.8 - 9.8 K/cumm HISTORICAL RESULTS Basophils 0.3 0.0 - 3.0 % HISTORICAL RESULTS RBC 2.53(L) 4.50 - 5.70 M/cumm HISTORICAL RESULTS Neutrophils, abs 9.8(H) 1.8 - 6.6 K/cumm HISTORICAL RESULTS Hgb 8.5(L) 13.8 - 17.2 g/dl HISTORICAL RESULTS Lymphocytes, abs 1.6 1.2 - 3.3 K/cumm HISTORICAL RESULTS Hct 24.7(L) 40.7 - 50.3 % HISTORICAL RESULTS Monocytes, absolute 1.0 0.2 - 1.2 K/cumm HISTORICAL RESULTS MCV 97.8(H) 80.0 - 97.6 fl HISTORICAL RESULTS Eosinophils, abs 0.5 0.0 - 0.5 K/cumm HISTORICAL RESULTS MCH 33.6 26.7 - 33.7 pg HISTORICAL RESULTS Basophils, abs 0.0 0.0 - 0.2 K/cumm HISTORICAL RESULTS MCHC 34.4 32.7 - 35.5 g/dl HISTORICAL RESULTS Rdw 12.8 11.8 - 14.6 % HISTORICAL RESULTS Platelets 490(H) 140 - 440 K/cumm HISTORICAL RESULTS MPV 9.0 6.8 - 10.4 fl HISTORICAL RESULTS Neutrophils 75.9(H) 38.7 - 74.5 % HISTORICAL RESULTS Lymphocytes 12.3(L) 20.0 - 54.3 % HISTORICAL RESULTS Monos 7.6 4.3 - 13.5 % HISTORICAL RESULTS Eosinophils 3.9 0.0 - 6.0 % HISTORICAL RESULTS Blood specimen (specimen) 10/27/2013 12:52 AM CDT Juani Grier MD LAB BLOOD ORDERABLES Myrna shantel Result HISTORICAL RESULTS * (ABNORMAL) Plasma comprehensive metabolic panel (10/27/2013 12:52 AM CDT) Sodium 146(H) 135 - 145 mmol/L HISTORICAL RESULTS K, pl 3.6 3.3 - 4.9 mmol/L HISTORICAL RESULTS Chloride 110 97 - 110 mmol/L HISTORICAL RESULTS CO2 27 22 - 32 mmol/L HISTORICAL RESULTS A. gap 9 0 - 16 mmol/L HISTORICAL RESULTS Glucose 152 70 - 199 mg/dl HISTORICAL RESULTS BUN 26(H) 8 - 25 mg/dl HISTORICAL RESULTS Creatinine 1.02 0.70 - 1.30 mg/dl HISTORICAL RESULTS Calcium 8.8 8.6 - 10.3 mg/dl HISTORICAL RESULTS Protein, pl 7.3 6.5 - 8.5 g/dl HISTORICAL RESULTS Alb 3.2(L) 3.6 - 5.0 g/dl HISTORICAL RESULTS Bilirubin 0.3 0.3 - 1.1 mg/dl HISTORICAL RESULTS Alk phos 57 38 - 126 Units/L HISTORICAL RESULTS AST 54(H) 11 - 47 Units/L HISTORICAL RESULTS ALT 80(H) 7 - 53 Units/L HISTORICAL RESULTS Plasma 10/27/2013 12:5 2 AM CDT us Bubba Alvarado LAB BLOOD ORDERABLES Final Res ult HISTORICAL RESULTS * All Microbiology Report Section (10/27/2013 12:00 AM CDT) 10/27/2013 Narrative HISTORICAL RESULTS - 11/13/2013 3:59 AM CDT ? [facility] ?[facility] ?[place] [address] ? Patient Name: ??CURLY ANGELO ? Med Rec Number: [id number] ? Fin Number: ?[id number] ? Date: ?1955 ? Sex/Age: ? Male 58 years ? Admit Date: ?10/19/2013 ? Discharge Date: 11/12/2013 ? Doctor: ?Sherron Mahan ? Facility: ?[facility] ? Location: ?0114 [address] 02 ?* Abnormal ??A Alert ??f Footnote ??^ Corrected ??L Low ??H High ?i Interp Data ??@ Ref Lab ? Chart Type:Cumulative ?* * * * MICROBIOLOGY - URINE * * * * ?PROCEDURE: Urine Culture ? SOURCE: Urine, catheterized ? COLLECTED: 10/27/13 ??1719 ?BODY SITE: ? STARTED: 10/27/13 ??1739 ? FREE TEXT SOURCE: ? FINAL REPORT ? REPORTED: 10/29/13 1153 ? No growth us Historical Provider MD LAB MICROBIOLOGY - GENERA L ORDERABLES Final Result HISTORICAL RESULTS * All Microbiology Report Section (10/27/2013 12:00 AM CDT) 10/27/2013 Narrative HISTORICAL RESULTS - 11/13/2013 3:59 AM CDT ? [facility] ?[facility] ?[place], [facility] [address] ? Patient Name: ??GI, CURLY ? Med Rec Number: [id number] ? Fin Number: ?[id number] ? Date: ?1955 ? Sex/Age: ? Male 58 years ? Admit Date: ?10/19/2013 ? Discharge Date: 11/12/2013 ? Doctor: ?Sherron Mahan ? Facility: ?[facility] ? Location: ?0114 [address] 02 ?* Abnormal ??A Alert ??f Footnote ??^ Corrected ??L Low ??H High ?i Interp Data ??@ Ref Lab ? Chart Type:Cumulative ?* * * * MICROBIOLOGY - BLOOD/STERILE FLUID * * * * ?PROCEDURE: Aerobic, Anaerobic and Mycology Culture, Blood ? SOURCE: Blood ? COLLECTED: 10/27/13 ??1705 ?BODY SITE: Peripheral ? STARTED: 10/27/13 ??1742 ? FREE TEXT SOURCE: ? FINAL REPORT ? REPORTED: 11/02/13 0249 ? No growth ?* * * ??Interpretive Results ??* * * ? (1)Blood cultures are incubated for five days on a continuously ? monitored blood culture system. ??The first report of a negative ? culture is issued within 24 hours of receipt of the specimen in ? the laboratory. ??Positive culture results are reported as soon ? as they are detected. ??For blood cultures with gram-positive ? cocci, a rapid molecular test for organism identification may be ? performed using the [employer] Nanosphere Gram Positive Blood ? Culture Assay. ??The Nanosphere assay detects microbial DNA in ? positive blood culture broth via hybridization of target DNA to ? capture oligonucleotides on a microarray. ??This assay has been ? cleared by the [place] Food and Drug Administration and ? its performance characteristics have been verified by the ? [facility].Current ? Interpretive Data was last revised on 2013. ? us Historical Provider MD LAB MICROBIOLOGY - GENERA L ORDERABLES Final Result HISTORICAL RESULTS * All Microbiology Report Section (10/27/2013 12:00 AM CDT) 10/27/2013 Narrative HISTORICAL RESULTS - 11/13/2013 3:59 AM CDT ? [facility] ?[facility] ?[place], [place] [address] ? Patient Name: ??GI CURLY ? Med Rec Number: [id number] ? Fin Number: ?[id number] ? Date: ?1955 ? Sex/Age: ? Male 58 years ? Admit Date: ?10/19/2013 ? Discharge Date: 11/12/2013 ? Doctor: ?Sherron Mahan ? Facility: ?[facility] ? Location: ?0114 [address] 02 ?* Abnormal ??A Alert ??f Footnote ??^ Corrected ??L Low ??H High ?i Interp Data ??@ Ref Lab ? Chart Type:Cumulative ?* * * * MICROBIOLOGY - BLOOD/STERILE FLUID * * * * ?PROCEDURE: Aerobic, Anaerobic and Mycology Culture, Blood ? SOURCE: Blood ? COLLECTED: 10/27/13 ??1705 ?BODY SITE: Peripheral ? STARTED: 10/27/13 ??1741 ? FREE TEXT SOURCE: ? FINAL REPORT ? REPORTED: 11/02/13 0249 ? No growth ?* * * ??Interpretive Results ??* * * ? (1)Blood cultures are incubated for five days on a continuously ? monitored blood culture system. ??The first report of a negative ? culture is issued within 24 hours of receipt of the specimen in ? the laboratory. ??Positive culture results are reported as soon ? as they are detected. ??For blood cultures with gram-positive ? cocci, a rapid molecular test for organism identification may be ? performed using the [employer] Nanosphere Gram Positive Blood ? Culture Assay. ??The Nanosphere assay detects microbial DNA in ? positive blood culture broth via hybridization of target DNA to ? capture oligonucleotides on a microarray. ??This assay has been ? cleared by the [place] Food and Drug Administration and ? its performance characteristics have been verified by the ? [facility].Current ? Interpretive Data was last revised on 2013. ? us Historical Provider MD LAB MICROBIOLOGY - GENERA L ORDERABLES Final Result HISTORICAL RESULTS * All Microbiology Report Section (10/27/2013 12:00 AM CDT) 10/27/2013 Narrative HISTORICAL RESULTS - 11/13/2013 3:59 AM CDT ? [facility] ?[facility] ?[place], [place] [address] ? Patient Name: ??CURLY ANGELO ? Med Rec Number: [id number] ? Fin Number: ?[id number] ? Date: ?1955 ? Sex/Age: ? Male 58 years ? Admit Date: ?10/19/2013 ? Discharge Date: 11/12/2013 ? Doctor: ?Sherron Mahan ? Facility: ?[facility] ? Location: ?0114 [address] 02 ?* Abnormal ??A Alert ??f Footnote ??^ Corrected ??L Low ??H High ?i Interp Data ??@ Ref Lab ? Chart Type:Cumulative ?* * * * MICROBIOLOGY - RESPIRATORY * * * * ?PROCEDURE: Aerobic Culture, Respiratory and Gram Stain ? SOURCE: Tracheal Aspirate ? COLLECTED: 07/30/14 ??1721 ?BODY SITE: ? STARTED: 07/30/14 ??1738 ? FREE TEXT SOURCE: ? DIRECT SPECIMEN EXAMINATION ? Stain ? REPORTED: 10/27/13 1836 ? Few polymorphonuclear leukocytes seen. Few squamous epithelial ? cells seen. Few mixed bacterial elia seen on Gram stain. ? FINAL REPORT ? REPORTED: 10/29/13 1154 ? Insignificant growth based on current clinical standards. us Historical Provider MD LAB MICROBIOLOGY - GENERA L ORDERABLES Final Result HISTORICAL RESULTS * XR Chest 1 View (10/26/2013 1:02 AM CDT) Anatomical Region Laterality Modality Body, Chest N/A Radiographic Tawanna ging 10/26/2013 1:02 AM CDT Narrative 10/27/2013 8:51 AM CDT Tanja RHOADES M.D. FINAL REPORT The radiology attending physician has personally reviewed this study, and has reviewed and/or edited this written report and agrees with it. ACC# ??Date Time ??Exam [id number] Oct 26, 2013 01:02:00 91830 Chest 1 view Frontal EXAMINATION: ?Chest 1 view IMPRESSION: ?Comparison is made to chest radiograph dated 10/25/2013. Endotracheal tube is 7 cm above the ti. Nasogastric tube ends below the diaphragm and off the [id number]. Improved aeration of the lungs with mild residual bibasilar atelectasis, right greater than left. No pneumothorax or pleural effusion. The cardiomediastinal silhouette stable. Requested By: CLAUDIA CONDON ANP Dictated By: ?? JANNIE MARRERO M.D. ??on Oct 26 2013 ??2:10P This document has been electronically signed by: ELIZABETH POOLE M.D. on Oct 27 2013 ??8:51A Procedure Note Provider, MD Mirna - 07/28/2016 ELIZABETH POOLE M.D. JANNIE MARRERO M.D. FINAL REPORT The radiology attending physician has personally reviewed this study, and has reviewed and/or edited this written report and agrees with it. ACC# Date Time Exam [id number] Oct 26, 2013 01:02:00 [id number] Chest 1 view Frontal EXAMINATION: Chest 1 view IMPRESSION: Comparison is made to chest radiograph dated 10/25/2013. Endotracheal tube is 7 cm above the ti. Nasogastric tube ends below the diaphragm and off the [id number]. Improved aeration of the lungs with mild residual bibasilar atelectasis, right greater than left. No pneumothorax or pleural effusion. The cardiomediastinal silhouettestable. Requested By: CLAUDIA CONDON ANP Dictated By: JANNIE MARRERO M.D. on Oct 26 2013 2:10P This document has been electronically signed by: ELIZABETH POOLE M.D. on Oct 27 2013 8:51A Historical Provider IMG XR PROCEDURES Final R esult * (ABNORMAL) Blood gas, arterial (10/26/2013 12:56 AM CDT) Ph, art 7.45 7.35 - 7.45 HISTORICAL RESULTS PCO2 34(L) 35 - 45 mm Hg HISTORICAL RESULTS PO2, art 94 80 - 105 mm Hg HISTORICAL RESULTS CO2, calc, art 24 21 - 30 mmol/L HISTORICAL RESULTS A-a gradient 151 mm Hg HISTORI SHALA RESULTS O2, inspired, %, art 40 % HISTORICAL RESULTS Oxygen (O2), inspired fraction (FiO2) Not Applicable liters HISTORICAL RESULTS Arterial blood 10/26/2013 12 :56 AM CDT Juani rGier MD LAB BLOOD ORDERABLES Myrna funes Result HISTORICAL RESULTS * Serum vancomycin, trough drug level (10/26/2013 12:51 AM CDT) Vancomycin, trough 13.4 10.0 - 20.9 mcg/ml HISTORICAL RESULTS Comment: Interpretive Data Therapeutic Range: ?? Uncomplicated skin and soft tissue infections: 10-20 mcg/mL ?? All other infections: ??15-20 mcg/mL Current interpretive data was last revised on 12. Serum 10/26/2013 12:5 1 AM CDT Historical Provider LAB BLOOD ORDERABLES Myrna shantel Result Performing Organization Address [facility] de Phone Number HISTORICAL RESULTS * (ABNORMAL) Plasma basic metabolic panel (10/26/2013 12:51 AM CDT) Sodium 151(H) 135 - 145 mmol/L HISTORICAL RESULTS K, pl 4.1 3.3 - 4.9 mmol/L HISTORICAL RESULTS Chloride 116(H) 97 - 110 mmol/L HISTORICAL RESULTS CO2 27 22 - 32 mmol/L HISTORICAL RESULTS A. gap 8 0 - 16 mmol/L HISTORICAL RESULTS Glucose 114 70 - 199 mg/dl HISTORICAL RESULTS BUN 24 8 - 25 mg/dl HISTORICAL RESULTS Creatinine 1.07 0.70 - 1.30 mg/dl HISTORICAL RESULTS Calcium 9.0 8.6 - 10.3 mg/dl HISTORICAL RESULTS Plasma 10/26/2013 12:5 1 AM CDT Juani Grier MD LAB BLOOD ORDERABLES Myrna l Result Performing Organization Address [facility] de Phone Number HISTORICAL RESULTS * (ABNORMAL) Blood cell count (CBC) (10/26/2013 12:51 AM CDT) WBC 14.5(H) 3.8 - 9.8 K/cumm HISTORICAL RESULTS RBC 2.70(L) 4.50 - 5.70 M/cumm HISTORICAL RESULTS Hgb 9.1(L) 13.8 - 17.2 g/dl HISTORICAL RESULTS Hct 26.8(L) 40.7 - 50.3 % HISTORICAL RESULTS MCV 99.6(H) 80.0 - 97.6 fl HISTORICAL RESULTS MCH 33.9(H) 26.7 - 33.7 pg HISTORICAL RESULTS MCHC 34.1 32.7 - 35.5 g/dl HISTORICAL RESULTS Rdw 12.7 11.8 - 14.6 % HISTORICAL RESULTS Platelets 487(H) 140 - 440 K/cumm HISTORICAL RESULTS MPV 8.9 6.8 - 10.4 fl HISTORICAL RESULTS Neutrophils 75.3(H) 38.7 - 74.5 % HISTORICAL RESULTS Lymphocytes 11.8(L) 20.0 - 54.3 % HISTORICAL RESULTS Monos 7.1 4.3 - 13.5 % HISTORICAL RESULTS Eosinophils 5.7 0.0 - 6.0 % HISTORICAL RESULTS Basophils 0.1 0.0 - 3.0 % HISTORICAL RESULTS Neutrophils, abs 10.9(H) 1.8 - 6.6 K/cumm HISTORICAL RESULTS Lymphocytes, abs 1.7 1.2 - 3.3 K/cumm HISTORICAL RESULTS Monocytes, absolute 1.0 0.2 - 1.2 K/cumm HISTORICAL RESULTS Eosinophils, abs 0.8(H) 0.0 - 0.5 K/cumm HISTORICAL RESULTS Basophils, abs 0.0 0.0 - 0.2 K/cumm HISTORICAL RESULTS Blood specimen (specimen) 10/26/2013 12:51 AM CDT Juani Grier MD LAB BLOOD ORDERABLES Myrna l Result HISTORICAL RESULTS * Plasma phosphorus (10/26/2013 12:51 AM CDT) [facility] Phosphorus, pl 3.3 2.3 - 4.3 mg/dl HISTORICAL RESULTS Plasma 10/26/2013 12:5 1 AM CDT Bubba Alvarado LAB BLOOD ORDERABLES Final Res ult HISTORICAL RESULTS * VASCULAR LABORATORY REPORT (10/26/2013) Anatomical Region Laterality Modality Ultrasound Narrative 10/26/2013 Ordered by an unspecified provider. Historical Provider CV VASCULAR PROCEDURES Fi nal Result * Aerobic culture and Gram stain (10/25/2013 6:38 PM CDT) Tracheal aspirate (Tracheal aspirate) 10/25/2013 6:38 PM CDT 10/25/2013 7:30 PM CDT Narrative HISTORICAL RESULTS - 10/28/2013 2:33 PM CDT Insignificant growth based on current clinical standards. Abundant polymorphonuclear leukocytes seen. Abundant squamous epithelial cells seen indicating excessive oral pharyngeal contamination Moderate Mixed bacterial elia seen on gram stain. Historical Provider LAB MICROBIOLOGY - GENERA L ORDERABLES Final Result Performing Organization Address [facility] de Phone Number HISTORICAL RESULTS * Blood culture (10/25/2013 6:38 PM CDT) Blood specimen (specimen) (Peripheral) 10/25/2013 6:38 PM CDT 10/25/2013 7:31 PM CDT Impressions HISTORICAL RESULTS - 10/31/2013 1:32 AM CDT Blood cultures are incubated for five days on a continuously monitored blood culture system. ??The first report of a negative culture is issued within 24 hours of receipt of the specimen in the laboratory. ??Positive culture results are reported as soon as they are detected. ??For blood cultures with gram-positive cocci, a rapid molecular test for organism identification may be performed using the [employer] Nanosphere Gram Positive Blood Culture Assay. ??The Nanosphere assay detects microbial DNA in positive blood culture broth via hybridization of target DNA to capture oligonucleotides on a microarray. ??This assay has been cleared by the [place] Food and Drug Administration and its performance characteristics have been verified by the [facility]. Current Interpretive Data was last revised on 2013. Narrative HISTORICAL RESULTS - 10/31/2013 1:32 AM CDT No growth Historical Provider LAB MICROBIOLOGY - GENERA L ORDERABLES Final Result Performing Organization Address [facility] de Phone Number HISTORICAL RESULTS * Blood culture (10/25/2013 6:38 PM CDT) Blood specimen (specimen) (Peripheral) 10/25/2013 6:38 PM CDT 10/25/2013 7:32 PM CDT Impressions HISTORICAL RESULTS - 10/31/2013 1:32 AM CDT Blood cultures are incubated for five days on a continuously monitored blood culture system. ??The first report of a negative culture is issued within 24 hours of receipt of the specimen in the laboratory. ??Positive culture results are reported as soon as they are detected. ??For blood cultures with gram-positive cocci, a rapid molecular test for organism identification may be performed using the [employer] Nanosphere Gram Positive Blood Culture Assay. ??The Nanosphere assay detects microbial DNA in positive blood culture broth via hybridization of target DNA to capture oligonucleotides on a microarray. ??This assay has been cleared by the [place] Food and Drug Administration and its performance characteristics have been verified by the [facility]. Current Interpretive Data was last revised on 2013. Narrative HISTORICAL RESULTS - 10/31/2013 1:32 AM CDT No growth Historical Provider MD LAB MICROBIOLOGY - GENERA L ORDERABLES Final Result Performing Organization Address [facility] de Phone Number HISTORICAL RESULTS * Urine (aerobic) culture (10/25/2013 6:38 PM CDT) Urine, catheterized (Unknown) 10/25/2013 6:38 PM CDT 10/25/2013 7:30 PM CDT Narrative HISTORICAL RESULTS - 10/27/2013 10:28 AM CDT No growth Historical Provider MD LAB MICROBIOLOGY - GENERA L ORDERABLES Final Result Performing Organization Address [facility] de Phone Number HISTORICAL RESULTS * (ABNORMAL) Urinalysis (10/25/2013 6:38 PM CDT) Color, ur Yellow Yellow HISTORICAL [...] esterase, ur Negative Negative HISTORICAL RESULTS Urine 10/25/2013 6:38 PM CDT Juani Grier MD LAB BLOOD ORDERABLES Myrna l Result Performing Organization Address [facility] Co de Phone Number HISTORICAL RESULTS * (ABNORMAL) Urine microscopy (10/25/2013 6:38 PM CDT) RBC, ur 15(H) 0 - 3 /hpf HISTORICA L RESULTS WBC, ur 3 0 - 5 /hpf HISTORICA L RESULTS Bacteria, ur Trace Trace HISTORI SHALA RESULTS Epithelial cells, renal, ur 0 0 - 0 /hpf HISTORICAL RESULTS Mucus, ur Small /hpf HISTORICAL RESULTS Hyaline casts 2(H) 0 - 0 /lpf HISTO RICAL RESULTS Urine 10/25/2013 6:38 PM CDT Juani Grier MD LAB BLOOD ORDERABLES Myrna l Result Performing Organization Address [facility] de Phone Number HISTORICAL RESULTS * (ABNORMAL) Plasma basic metabolic panel (10/25/2013 9:22 AM CDT) Sodium 149(H) 135 - 145 mmol/L HISTORICAL RESULTS K, pl 3.8 3.3 - 4.9 mmol/L HISTORICAL RESULTS Chloride 114(H) 97 - 110 mmol/L HISTORICAL RESULTS CO2 24 22 - 32 mmol/L HISTORICAL RESULTS A. gap 11 0 - 16 mmol/L HISTORICAL RESULTS Glucose 158 70 - 199 mg/dl HISTORICAL RESULTS BUN 24 8 - 25 mg/dl HISTORICAL RESULTS Creatinine 0.90 0.70 - 1.30 mg/dl HISTORICAL RESULTS Calcium 8.7 8.6 - 10.3 mg/dl HISTORICAL RESULTS Plasma 10/25/2013 9:22 AM CDT Historical Provider LAB BLOOD ORDERABLES Myrna l Result Performing Organization Address [facility] Co de Phone Number HISTORICAL RESULTS * XR Chest 1 View (10/25/2013 1:40 AM CDT) Anatomical Region Laterality Modality Body, Chest N/A Radiographic Tawanna ging 10/25/2013 1:40 AM CDT Narrative 10/25/2013 11:38 AM CDT SANTI ASHER M.D. FINAL REPORT ACC# ??Date Time ??Exam [id number] Oct 25, 2013 01:40:00 [id number] Chest 1 view Frontal EXAMINATION: ?? Chest 1 view COMPARISON: 10/24/2013 IMPRESSION: ?? Endotracheal and nasogastric tubes are again seen. There are 2 new metallic zoie overlying the right lung apex and supraclavicular region. Heart size remains normal. There is decreased opacity and improved aeration of the right lung base consistent with decrease in atelectasis. Mild atelectasis is present in both lung bases. No pulmonary edema or pneumonia seen. No pleural effusion or pneumothorax detected, with the left costophrenic angle partly excluded from view. Requested By: CLAUDIA CONDON Dictated By: ?? SANTI ASHER M.D. ??on Oct 25 2013 11:38A This document has been electronically signed by: SANTI ASHER M.D. on Oct 25 2013 11:38A Procedure Note Provider, MD Mirna - 07/28/2016 SANTI ASHER M.D. FINAL REPORT ACC# Date Time Exam [id number] Oct 25, 2013 01:40:00 [id number] Chest 1 view Frontal EXAMINATION: Chest 1 view COMPARISON: 10/24/2013 IMPRESSION: Endotracheal and nasogastric tubes are again seen. There are 2 new metallic zoie overlying the right lung apex and supraclavicular region. Heart size remains normal. There is decreased opacity and improved aeration of the right lung base consistent with decrease in atelectasis. Mild atelectasis is present in both lung bases. No pulmonary edema or pneumonia seen. No pleural effusion or pneumothorax detected, with the left costophrenic angle partly excluded from view. Requested By: CLAUDIA CONDON Dictated By: SANTI ASHER M.D. on Oct 25 2013 11:38A This document has been electronically signed by: SANTI ASHER M.D. on Oct 25 2013 11:38A us Historical Provider MD ESTRADA XR PROCEDURES Final R esult * (ABNORMAL) Blood gas, arterial (10/25/2013 12:22 AM CDT) Ph, art 7.43 7.35 - 7.45 HISTORICAL RESULTS PCO2 35 35 - 45 mm Hg HISTORICAL RESULTS PO2, art 112(H) 80 - 105 mm Hg HISTORICAL RESULTS CO2, calc, art 24 21 - 30 mmol/L HISTORICAL RESULTS A-a gradient 131 mm Hg HISTORI SHALA RESULTS O2, inspired, %, art 40 % HISTORICAL RESULTS Oxygen (O2), inspired fraction (FiO2) Not Applicable liters HISTORICAL RESULTS Arterial blood 10/25/2013 12 :22 AM CDT Juani Grier MD LAB BLOOD ORDERABLES Myrna l Result Performing Organization Address [facility] de Phone Number HISTORICAL RESULTS * (ABNORMAL) Plasma basic metabolic panel (10/25/2013 12:20 AM CDT) Sodium 151(H) 135 - 145 mmol/L HISTORICAL RESULTS K, pl 3.8 3.3 - 4.9 mmol/L HISTORICAL RESULTS Chloride 118(H) 97 - 110 mmol/L HISTORICAL RESULTS CO2 25 22 - 32 mmol/L HISTORICAL RESULTS A. gap 8 0 - 16 mmol/L HISTORICAL RESULTS Glucose 146 70 - 199 mg/dl HISTORICAL RESULTS BUN 26(H) 8 - 25 mg/dl HISTORICAL RESULTS Creatinine 1.09 0.70 - 1.30 mg/dl HISTORICAL RESULTS Calcium 9.1 8.6 - 10.3 mg/dl HISTORICAL RESULTS Plasma 10/25/2013 12:2 0 AM CDT Historical Provider LAB BLOOD ORDERABLES Myrna l Result Performing Organization Address [facility] de Phone Number HISTORICAL RESULTS * (ABNORMAL) Plasma phosphorus (10/25/2013 12:20 AM CDT) Phosphorus, pl 1.8(L) 2.3 - 4.3 mg/dl HISTORICAL RESULTS Plasma 10/25/2013 12:2 0 AM CDT Historical Provider LAB BLOOD ORDERABLES Myrna l Result Performing Organization Address [facility] de Phone Number HISTORICAL RESULTS * Serum magnesium (10/25/2013 12:20 AM CDT) Magnesium 2.2 1.4 - 2.5 mg/dl HISTORICAL RESULTS Serum 10/25/2013 12:2 0 AM CDT us Historical Provider LAB BLOOD ORDERABLES Myrna funes Result HISTORICAL RESULTS * (ABNORMAL) Blood cell count (CBC) (10/25/2013 12:20 AM CDT) WBC 15.6(H) 3.8 - 9.8 K/cumm HISTORICAL RESULTS RBC 2.63(L) 4.50 - 5.70 M/cumm HISTORICAL RESULTS Hgb 8.8(L) 13.8 - 17.2 g/dl HISTORICAL RESULTS Hct 26.1(L) 40.7 - 50.3 % HISTORICAL RESULTS MCV 99.0(H) 80.0 - 97.6 fl HISTORICAL RESULTS MCH 33.4 26.7 - 33.7 pg HISTORICAL RESULTS MCHC 33.7 32.7 - 35.5 g/dl HISTORICAL RESULTS Rdw 12.9 11.8 - 14.6 % HISTORICAL RESULTS Platelets 443(H) 140 - 440 K/cumm HISTORICAL RESULTS MPV 8.3 6.8 - 10.4 fl HISTORICAL RESULTS Neutrophils 75.1(H) 38.7 - 74.5 % HISTORICAL RESULTS Lymphocytes 11.2(L) 20.0 - 54.3 % HISTORICAL RESULTS Monos 9.1 4.3 - 13.5 % HISTORICAL RESULTS Eosinophils 4.2 0.0 - 6.0 % HISTORICAL RESULTS Basophils 0.4 0.0 - 3.0 % HISTORICAL RESULTS Neutrophils, abs 11.7(H) 1.8 - 6.6 K/cumm HISTORICAL RESULTS Lymphocytes, abs 1.7 1.2 - 3.3 K/cumm HISTORICAL RESULTS Monocytes, absolute 1.4(H) 0.2 - 1.2 K/cumm HISTORICAL RESULTS Eosinophils, abs 0.6(H) 0.0 - 0.5 K/cumm HISTORICAL RESULTS Basophils, abs 0.1 0.0 - 0.2 K/cumm HISTORICAL RESULTS Blood specimen (specimen) 10/25/2013 12:20 AM CDT us Jose Yanci Greenberg LAB BLOOD ORDERABLES Final Resu lt HISTORICAL RESULTS * All Microbiology Report Section (10/25/2013 12:00 AM CDT) 10/25/2013 Narrative HISTORICAL RESULTS - 11/13/2013 3:59 AM CDT ? [facility] ?[facility] ?[place], [place] [address] ? Patient Name: ??CURLY ANGELO ? Med Rec Number: [id number] ? Fin Number: ?[id number] ? Date: ?1955 ? Sex/Age: ? Male 58 years ? Admit Date: ?10/19/2013 ? Discharge Date: 11/12/2013 ? Doctor: ?Sherron Mahan ? Facility: ?[facility] ? Location: ?[address]14 [address] 02 ?* Abnormal ??A Alert ??f Footnote ??^ Corrected ??L Low ??H High ?i Interp Data ??@ Ref Lab ? Chart Type:Cumulative ?* * * * MICROBIOLOGY - URINE * * * * ?PROCEDURE: Urine Culture ? SOURCE: Urine, catheterized ? COLLECTED: 10/25/13 ??1838 ?BODY SITE: ? STARTED: 10/25/13 ??1930 ? FREE TEXT SOURCE: ? FINAL REPORT ? REPORTED: 10/27/13 1028 ? No growth us Historical Provider MD LAB MICROBIOLOGY - GENERA L ORDERABLES Final Result HISTORICAL RESULTS * All Microbiology Report Section (10/25/2013 12:00 AM CDT) 10/25/2013 Narrative HISTORICAL RESULTS - 11/13/2013 3:59 AM CDT ? [facility] ?[facility] ?[place] [address] ? Patient Name: ??GI, CURLY ? Med Rec Number: [id number] ? Fin Number: ?[id number] ? Date: ?1955 ? Sex/Age: ? Male 58 years ? Admit Date: ?10/19/2013 ? Discharge Date: 11/12/2013 ? Doctor: ?Sherron Mahan ? Facility: ?[facility] ? Location: ?[address]14 [id number] 02 ?* Abnormal ??A Alert ??f Footnote ??^ Corrected ??L Low ??H High ?i Interp Data ??@ Ref Lab ? Chart Type:Cumulative ?* * * * MICROBIOLOGY - BLOOD/STERILE FLUID * * * * ?PROCEDURE: Aerobic, Anaerobic and Mycology Culture, Blood ? SOURCE: Blood ? COLLECTED: 10/25/13 ??1838 ?BODY SITE: Peripheral ? STARTED: 10/25/13 ??1932 ? FREE TEXT SOURCE: ? FINAL REPORT ? REPORTED: 10/31/13 0132 ? No growth ?* * * ??Interpretive Results ??* * * ? (1)Blood cultures are incubated for five days on a continuously ? monitored blood culture system. ??The first report of a negative ? culture is issued within 24 hours of receipt of the specimen in ? the laboratory. ??Positive culture results are reported as soon ? as they are detected. ??For blood cultures with gram-positive ? cocci, a rapid molecular test for organism identification may be ? performed using the [employer] Nanosphere Gram Positive Blood ? Culture Assay. ??The Nanosphere assay detects microbial DNA in ? positive blood culture broth via hybridization of target DNA to ? capture oligonucleotides on a microarray. ??This assay has been ? cleared by the [place] Food and Drug Administration and ? its performance characteristics have been verified by the ? [facility].Current ? Interpretive Data was last revised on 2013. ? us Historical Provider MD LAB MICROBIOLOGY - GENERA L ORDERABLES Final Result HISTORICAL RESULTS * All Microbiology Report Section (10/25/2013 12:00 AM CDT) 10/25/2013 Narrative HISTORICAL RESULTS - 11/13/2013 3:59 AM CDT ? [facility] ?[facility] ?[place], [place] [address] ? Patient Name: ??GI, CURLY ? Med Rec Number: [id number] ? Fin Number: ?[id number] ? Date: ?1955 ? Sex/Age: ? Male 58 years ? Admit Date: ?10/19/2013 ? Discharge Date: 11/12/2013 ? Doctor: ?Sherron Mahan ? Facility: ?[facility] ? Location: ?[address]14 [address] 02 ?* Abnormal ??A Alert ??f Footnote ??^ Corrected ??L Low ??H High ?i Interp Data ??@ Ref Lab ? Chart Type:Cumulative ?* * * * MICROBIOLOGY - BLOOD/STERILE FLUID * * * * ?PROCEDURE: Aerobic, Anaerobic and Mycology Culture, Blood ? SOURCE: Blood ? COLLECTED: 10/25/13 ??1838 ?BODY SITE: Peripheral ? STARTED: 10/25/13 ??1931 ? FREE TEXT SOURCE: ? FINAL REPORT ? REPORTED: 10/31/132 ? No growth ?* * * ??Interpretive Results ??* * * ? (1)Blood cultures are incubated for five days on a continuously ? monitored blood culture system. ??The first report of a negative ? culture is issued within 24 hours of receipt of the specimen in ? the laboratory. ??Positive culture results are reported as soon ? as they are detected. ??For blood cultures with gram-positive ? cocci, a rapid molecular test for organism identification may be ? performed using the [employer] Gram Positive Blood ? Culture Assay. ??The Nanosphere assay detects microbial DNA in ? positive blood culture broth via hybridization of target DNA to ? capture oligonucleotides on a microarray. ??This assay has been ? cleared by the [place] Food and Drug Administration and ? its performance characteristics have been verified by the ? [facility].Current ? Interpretive Data was last revised on 2013. ? us Historical Provider MD LAB MICROBIOLOGY - GENERA L ORDERABLES Final Result HISTORICAL RESULTS * All Microbiology Report Section (10/25/2013 12:00 AM CDT) 10/25/2013 Narrative HISTORICAL RESULTS - 11/13/2013 3:59 AM CDT ? [facility] ?[facility] ?[place], [place] [address] ? Patient Name: ??CURLY ANGELO ? Med Rec Number: [id number] ? Fin Number: ?[id number] ? Date: ?1955 ? Sex/Age: ? Male 58 years ? Admit Date: ?10/19/2013 ? Discharge Date: 11/12/2013 ? Doctor: ?Sherron Mahan ? Facility: ?[facility] ? Location: ?[address]14 [address] 02 ?* Abnormal ??A Alert ??f Footnote ??^ Corrected ??L Low ??H High ?i Interp Data ??@ Ref Lab ? Chart Type:Cumulative ?* * * * MICROBIOLOGY - RESPIRATORY * * * * ?PROCEDURE: Aerobic Culture, Respiratory and Gram Stain ? SOURCE: Tracheal Aspirate ? COLLECTED: 10/25/14 ??1838 ?BODY SITE: ? STARTED: 10/25/14 ??1930 ? FREE TEXT SOURCE: ? DIRECT SPECIMEN EXAMINATION ? Stain ? REPORTED: 10/25/14 220 ? Abundant polymorphonuclear leukocytes seen. Abundant squamous ? epithelial cells seen indicating excessive oral pharyngeal ? contamination Moderate Mixed bacterial elia seen on gram stain. ? FINAL REPORT ? REPORTED: 10/28/13 1433 ? Insignificant growth based on current clinical standards. us Historical Provider MD LAB MICROBIOLOGY - GENERA L ORDERABLES Final Result Performing Organization Address [facility] de Phone Number HISTORICAL RESULTS * (ABNORMAL) Plasma basic metabolic panel (10/24/2013 4:40 PM CDT) Sodium 152(H) 135 - 145 mmol/L HISTORICAL RESULTS K, pl 3.3 3.3 - 4.9 mmol/L HISTORICAL RESULTS Chloride 118(H) 97 - 110 mmol/L HISTORICAL RESULTS CO2 25 22 - 32 mmol/L HISTORICAL RESULTS A. gap 9 0 - 16 mmol/L HISTORICAL RESULTS Glucose 151 70 - 199 mg/dl HISTORICAL RESULTS BUN 24 8 - 25 mg/dl HISTORICAL RESULTS Creatinine 1.16 0.70 - 1.30 mg/dl HISTORICAL RESULTS Calcium 8.8 8.6 - 10.3 mg/dl HISTORICAL RESULTS Plasma 10/24/2013 4:40 PM CDT Historical Provider MD LAB BLOOD ORDERABLES Myrna l Result Performing Organization Address [facility] de Phone Number HISTORICAL RESULTS * Vancomycin-resistant enterococcus (VRE) surveillance screen (10/24/2013 12:38 PM CDT) Stool (Unknown) 10/24/2013 1 2:38 PM CDT 10/25/2013 12:40 AM CDT Impressions HISTORICAL RESULTS - 10/27/2013 5:32 AM CDT This test is for Infection prevention surveillance; no charge to patient. Current interpretive data was last revised on 2011. Narrative HISTORICAL RESULTS - 10/27/2013 5:32 AM CDT Negative Historical Provider LAB MICROBIOLOGY - GENERA L ORDERABLES Final Result Performing Organization Address [facility] de Phone Number HISTORICAL RESULTS * Clostridium difficile toxin (10/24/2013 12:38 PM CDT) Stool (Unknown) 10/24/2013 1 2:38 PM CDT 10/24/2013 1:52 PM CDT Narrative HISTORICAL RESULTS - 10/25/2013 1:19 AM CDT Negative for: Clostridium difficile toxin. Historical Provider LAB MICROBIOLOGY - GENERA L ORDERABLES Final Result Performing Organization Address [facility] de Phone Number HISTORICAL RESULTS * (ABNORMAL) Plasma basic metabolic panel (10/24/2013 8:03 AM CDT) Sodium 151(H) 135 - 145 mmol/L HISTORICAL RESULTS K, pl 3.5 3.3 - 4.9 mmol/L HISTORICAL RESULTS Chloride 116(H) 97 - 110 mmol/L HISTORICAL RESULTS CO2 25 22 - 32 mmol/L HISTORICAL RESULTS A. gap 10 0 - 16 mmol/L HISTORICAL RESULTS Glucose 171 70 - 199 mg/dl HISTORICAL RESULTS BUN 23 8 - 25 mg/dl HISTORICAL RESULTS Creatinine 1.08 0.70 - 1.30 mg/dl HISTORICAL RESULTS Calcium 9.0 8.6 - 10.3 mg/dl HISTORICAL RESULTS Plasma 10/24/2013 8:03 AM CDT Fortino Roca MD LAB BLOOD ORDERABLES Fi nal Result Performing Organization Address [facility] de Phone Number HISTORICAL RESULTS * (ABNORMAL) Blood cell count (CBC) (10/24/2013 2:20 AM CDT) WBC 14.7(H) 3.8 - 9.8 K/cumm HISTORICAL RESULTS RBC 2.69(L) 4.50 - 5.70 M/cumm HISTORICAL RESULTS Hgb 9.3(L) 13.8 - 17.2 g/dl HISTORICAL RESULTS Hct 26.7(L) 40.7 - 50.3 % HISTORICAL RESULTS MCV 99.4(H) 80.0 - 97.6 fl HISTORICAL RESULTS MCH 34.5(H) 26.7 - 33.7 pg HISTORICAL RESULTS MCHC 34.7 32.7 - 35.5 g/dl HISTORICAL RESULTS Rdw 12.6 11.8 - 14.6 % HISTORICAL RESULTS Platelets 473(H) 140 - 440 K/cumm HISTORICAL RESULTS MPV 8.1 6.8 - 10.4 fl HISTORICAL RESULTS Neutrophils 80.1(H) 38.7 - 74.5 % HISTORICAL RESULTS Lymphocytes 5.6(L) 20.0 - 54.3 % HISTORICAL RESULTS Monos 11.9 4.3 - 13.5 % HISTORICAL RESULTS Eosinophils 1.7 0.0 - 6.0 % HISTORICAL RESULTS Basophils 0.7 0.0 - 3.0 % HISTORICAL RESULTS Neutrophils, abs 11.8(H) 1.8 - 6.6 K/cumm HISTORICAL RESULTS Lymphocytes, abs 0.8(L) 1.2 - 3.3 K/cumm HISTORICAL RESULTS Monocytes, absolute 1.8(H) 0.2 - 1.2 K/cumm HISTORICAL RESULTS Eosinophils, abs 0.3 0.0 - 0.5 K/cumm HISTORICAL RESULTS Basophils, abs 0.1 0.0 - 0.2 K/cumm HISTORICAL RESULTS Blood specimen (specimen) 10/24/2013 2:20 AM CDT us Jose Greenberg LAB BLOOD ORDERABLES Final Resu lt HISTORICAL RESULTS * (ABNORMAL) Plasma comprehensive metabolic panel (10/24/2013 2:20 AM CDT) Sodium 150(H) 135 - 145 mmol/L HISTORICAL RESULTS K, pl 3.4 3.3 - 4.9 mmol/L HISTORICAL RESULTS Chloride 116(H) 97 - 110 mmol/L HISTORICAL RESULTS CO2 23 22 - 32 mmol/L HISTORICAL RESULTS A. gap 11 0 - 16 mmol/L HISTORICAL RESULTS Glucose 137 70 - 199 mg/dl HISTORICAL RESULTS BUN 23 8 - 25 mg/dl HISTORICAL RESULTS Creatinine 1.34(H) 0.70 - 1.30 mg/dl HISTORICAL RESULTS Calcium 8.9 8.6 - 10.3 mg/dl HISTORICAL RESULTS Protein, pl 7.5 6.5 - 8.5 g/dl HISTORICAL RESULTS Alb 3.5(L) 3.6 - 5.0 g/dl HISTORICAL RESULTS Bilirubin 0.4 0.3 - 1.1 mg/dl HISTORICAL RESULTS Alk phos 50 38 - 126 Units/L HISTORICAL RESULTS AST 37 11 - 47 Units/L HISTORICAL RESULTS ALT 29 7 - 53 Units/L HISTORICAL RESULTS Plasma 10/24/2013 2:20 AM CDT Juani Grier MD LAB BLOOD ORDERABLES Myrna l Result Performing Organization Address [facility] de Phone Number HISTORICAL RESULTS * (ABNORMAL) Plasma phosphorus (10/24/2013 2:20 AM CDT) Phosphorus, pl 1.9(L) 2.3 - 4.3 mg/dl HISTORICAL RESULTS Plasma 10/24/2013 2:20 AM CDT Juani Grier MD LAB BLOOD ORDERABLES Myrna l Result Performing Organization Address [facility] de Phone Number HISTORICAL RESULTS * Serum magnesium (10/24/2013 2:20 AM CDT) Magnesium 2.3 1.4 - 2.5 mg/dl HISTORICAL RESULTS Serum 10/24/2013 2:20 AM CDT Juani Grier MD LAB BLOOD ORDERABLES Myrna l Result Performing Organization Address [facility] de Phone Number HISTORICAL RESULTS * XR Chest 1 View (10/24/2013 1:24 AM CDT) Anatomical Region Laterality Modality Body, Chest N/A Radiographic Tawanna ging 10/24/2013 1:24 AM CDT Narrative 10/24/2013 10:09 AM CDT JOSE HEARD M.D. FINAL REPORT ACC# ??Date Time ??Exam [id number] Oct 24, 2013 01:24:00 [id number] Chest 1 view Frontal EXAMINATION: ?? Chest radiograph - one view CLINICAL INFORMATION: Intubated COMPARISON: Chest radiograph from 10/22/2013 TECHNIQUE: AP view of the chest FINDINGS: An endotracheal tube and nasogastric tube are unchanged in position. The right lung base opacity is worsened, possibly aspiration pneumonia. The left lung is clear. The heart is not enlarged. IMPRESSION: ?? Worsening right lung base opacity, possibly aspiration pneumonia. Requested By: CLAUDIA CONDON Dictated By: ?? JOSE HEARD M.D. ??on Oct 24 2013 10:09A This document has been electronically signed by: JOSE HEARD M.D. on Oct 24 2013 10:09A Procedure Note Provider, MD Mirna - 07/28/2016 JOSE HEARD M.D. FINAL REPORT ACC# Date Time Exam [id number] Oct 24, 2013 01:24:00 [id number] Chest 1 view Frontal EXAMINATION: Chest radiograph - one view CLINICAL INFORMATION: Intubated COMPARISON: Chest radiograph from 10/22/2013 TECHNIQUE: AP view of the chest FINDINGS: An endotracheal tube and nasogastric tube are unchanged in position. The right lung base opacity is worsened, possibly aspiration pneumonia. The left lung is clear. The heart is not enlarged. IMPRESSION: Worsening right lung base opacity, possibly aspiration pneumonia. Requested By: CLAUDIA CONDON Dictated By: JOSE HEARD M.D. on Oct 24 2013 10:09A This document has been electronically signed by: JOSE HEARD M.D. on Oct 24 2013 10:09A us Historical Provider IMG XR PROCEDURES Final R esult * All Microbiology Report Section (10/24/2013 12:00 AM CDT) 10/24/2013 Narrative HISTORICAL RESULTS - 11/13/2013 3:59 AM CDT ? [facility] ?[facility] [place] [address] [address] ? Patient Name: ??CURLY ANGELO ? Med Rec Number: [id number] ? Fin Number: ?[id number] ? Date: ?1955 ? Sex/Age: ? Male 58 years ? Admit Date: ?10/19/2013 ? Discharge Date: 11/12/2013 ? Doctor: ?Sherron Mahan ? Facility: ?[facility] ? Location: ?[id number] ?* Abnormal ??A Alert ??f Footnote ??^ Corrected ??L Low ??H High ?i Interp Data ??@ Ref Lab ? Chart Type:Cumulative ?* * * * MICROBIOLOGY - GASTROINTESTINAL * * * * ?PROCEDURE: VRE Surveillance Culture ? SOURCE: Stool ? COLLECTED: 10/24/ ??1238 ?BODY SITE: ? STARTED: 10/25/13 ??0040 ? FREE TEXT SOURCE: ? FINAL REPORT ? REPORTED: 10/27/13 0532 ? Negative ?* * * ??Interpretive Results ??* * * ? (1)This test is for Infection prevention surveillance; no charge to ? patient.Current interpretive data was last revised on 2011. ? us Historical Provider MD LAB MICROBIOLOGY - GENERA L ORDERABLES Final Result HISTORICAL RESULTS * All Microbiology Report Section (10/24/2013 12:00 AM CDT) 10/24/2013 Narrative HISTORICAL RESULTS - 11/13/2013 3:59 AM CDT ? [facility] ?[facility] [place] ?[place] [address] ? Patient Name: ??CURLY ANGELO ? Med Rec Number: [id number] ? Fin Number: ?[id number] ? Date: ?1955 ? Sex/Age: ? Male 58 years ? Admit Date: ?10/19/2013 ? Discharge Date: 11/12/2013 ? Doctor: ?Keyrouz , Salah G ? Facility: ?[facility] ? Location: ?0114 [id number] ?* Abnormal ??A Alert ??f Footnote ??^ Corrected ??L Low ??H High ?i Interp Data ??@ Ref Lab ? Chart Type:Cumulative ?* * * * MICROBIOLOGY - GASTROINTESTINAL * * * * ?PROCEDURE: Clostridium difficile Toxin ? SOURCE: Stool ? COLLECTED: 07/27/14 ??1238 ?BODY SITE: ? STARTED: 07/27/14 ??1352 ? FREE TEXT SOURCE: ? FINAL REPORT ? REPORTED: 10/25/13 0119 ? Negative for: Clostridium difficile toxin. Historical Provider LAB MICROBIOLOGY - GENERA L ORDERABLES Final Result Performing Organization Address [facility] de Phone Number HISTORICAL RESULTS * (ABNORMAL) Blood gas, arterial (10/23/2013 10:04 PM CDT) Ph, art 7.46(H) 7.35 - 7.45 HISTORICAL RESULTS PCO2 34(L) 35 - 45 mm Hg HISTORICAL RESULTS PO2, art 103 80 - 105 mm Hg HISTORICAL RESULTS CO2, calc, art 24 21 - 30 mmol/L HISTORICAL RESULTS A-a gradient 139 mm Hg HISTORI SHALA RESULTS O2, inspired, %, art 40 % HISTORICAL RESULTS Oxygen (O2), inspired fraction (FiO2) Not Applicable liters HISTORICAL RESULTS Arterial blood 10/23/2013 10 :04 PM CDT Juani Grier MD LAB BLOOD ORDERABLES Myrna l Result Performing Organization Address [facility] de Phone Number HISTORICAL RESULTS * (ABNORMAL) Plasma basic metabolic panel (10/23/2013 8:38 PM CDT) Sodium 149(H) 135 - 145 mmol/L HISTORICAL RESULTS K, pl 3.6 3.3 - 4.9 mmol/L HISTORICAL RESULTS Chloride 115(H) 97 - 110 mmol/L HISTORICAL RESULTS CO2 23 22 - 32 mmol/L HISTORICAL RESULTS A. gap 11 0 - 16 mmol/L HISTORICAL RESULTS Glucose 184 70 - 199 mg/dl HISTORICAL RESULTS BUN 21 8 - 25 mg/dl HISTORICAL RESULTS Creatinine 1.16 0.70 - 1.30 mg/dl HISTORICAL RESULTS Calcium 8.8 8.6 - 10.3 mg/dl HISTORICAL RESULTS Plasma 10/23/2013 8:38 PM CDT us Jose Greenberg LAB BLOOD ORDERABLES Final Resu lt Performing Organization Address [facility] de Phone Number HISTORICAL RESULTS * (ABNORMAL) Plasma basic metabolic panel (10/23/2013 2:17 PM CDT) Sodium 145 135 - 145 mmol/L HISTORICAL RESULTS K, pl 3.4 3.3 - 4.9 mmol/L HISTORICAL RESULTS Chloride 112(H) 97 - 110 mmol/L HISTORICAL RESULTS CO2 22 22 - 32 mmol/L HISTORICAL RESULTS A. gap 11 0 - 16 mmol/L HISTORICAL RESULTS Glucose 202(H) 70 - 199 mg/dl HISTORICAL RESULTS BUN 19 8 - 25 mg/dl HISTORICAL RESULTS Creatinine 1.10 0.70 - 1.30 mg/dl HISTORICAL RESULTS Calcium 8.6 8.6 - 10.3 mg/dl HISTORICAL RESULTS Plasma 10/23/2013 2:17 PM CDT Fortino Roca MD LAB BLOOD ORDERABLES Fi nal Result Performing Organization Address [facility] de Phone Number HISTORICAL RESULTS * (ABNORMAL) Serum osmolality (10/23/2013 7:58 AM CDT) Osmo 308(H) 275 - 300 mOsm/kg HISTORICAL RESULTS Serum 10/23/2013 7:58 AM CDT Fortino Roca MD LAB BLOOD ORDERABLES Fi nal Result Performing Organization Address [facility] de Phone Number HISTORICAL RESULTS * (ABNORMAL) Plasma basic metabolic panel (10/23/2013 7:58 AM CDT) Sodium 147(H) 135 - 145 mmol/L HISTORICAL RESULTS K, pl 3.7 3.3 - 4.9 mmol/L HISTORICAL RESULTS Chloride 110 97 - 110 mmol/L HISTORICAL RESULTS CO2 24 22 - 32 mmol/L HISTORICAL RESULTS A. gap 13 0 - 16 mmol/L HISTORICAL RESULTS Glucose 157 70 - 199 mg/dl HISTORICAL RESULTS BUN 16 8 - 25 mg/dl HISTORICAL RESULTS Creatinine 1.05 0.70 - 1.30 mg/dl HISTORICAL RESULTS Calcium 8.7 8.6 - 10.3 mg/dl HISTORICAL RESULTS Plasma 10/23/2013 7:58 AM CDT Fortino Roca MD LAB BLOOD ORDERABLES Fi nal Result Performing Organization Address [facility] de Phone Number HISTORICAL RESULTS * (ABNORMAL) Urinalysis (10/22/2013 11:18 PM CDT) Color, ur Yellow Yellow HISTORICAL RESULTS Clarity, ur Clear Clear HISTORIC AL RESULTS Specific gravity, ur 1.020 1.003 - 1.030 HISTORICAL RESULTS pH, ur 8.0 5.0 - 8.0 HISTORICAL RESULTS Protein, ur 1+(A) Trace HISTORIC AL RESULTS Glucose, ur Negative Negative HISTORIC AL RESULTS Ketones, ur Negative Negative HISTORIC AL RESULTS Bilirubin, ur Negative Negative HISTOR ICAL RESULTS U Blood 1+(A) Negative HISTORICAL RESULTS Urobilinogen, quant, ur <2.0 0.0 - 2.0 mg/dl HISTORICAL RESULTS Nitrites, ur Negative Negative HISTORI SHALA RESULTS Leukocyte esterase, ur Negative Negative HISTORICAL RESULTS Urine 10/22/2013 11:1 8 PM CDT Result [facility] Juani Grier MD LAB BLOOD ORDERABLES Myrna l Result Performing Organization Address [facility] de Phone Number HISTORICAL RESULTS * Urine microscopy (10/22/2013 11:18 PM CDT) RBC, ur 1 0 - 3 /hpf HISTORICA L RESULTS WBC, ur 3 0 - 5 /hpf HISTORICA L RESULTS Bacteria, ur Negative Trace HISTORI SHALA RESULTS Epithelial cells, renal, ur 0 0 - 0 /hpf HISTORICAL RESULTS Urine 10/22/2013 11:1 8 PM CDT Juani Grier MD LAB BLOOD ORDERABLES Myrna l Result Performing Organization Address [facility] de Phone Number HISTORICAL RESULTS * (ABNORMAL) Blood gas, arterial (10/22/2013 11:18 PM CDT) Ph, art 7.46(H) 7.35 - 7.45 HISTORICAL RESULTS PCO2 33(L) 35 - 45 mm Hg HISTORICAL RESULTS PO2, art 152(H) 80 - 105 mm Hg HISTORICAL RESULTS CO2, calc, art 24 21 - 30 mmol/L HISTORICAL RESULTS A-a gradient Not Applicable mm Hg HI STORICAL RESULTS O2, inspired, %, art Not Applicable % HISTORICAL RESULTS Oxygen (O2), inspired fraction (FiO2) Not Applicable liters HISTORICAL RESULTS Arterial blood 10/22/2013 11 :18 PM CDT Juani Grier MD LAB BLOOD ORDERABLES Myrna l Result Performing Organization Address City/State/[facility] Co de Phone Number HISTORICAL RESULTS * Urine (aerobic) culture (10/22/2013 11:18 PM CDT) Organism ENT^[id number] HISTORICA L RESULTS Urine, catheterized (Unknown) 10/22/2013 11:18 PM CDT 10/22/2013 11:47 PM CDT Narrative HISTORICAL RESULTS - 10/26/2013 10:35 AM CDT Greater than or equal to 5,000 colonies/ml of Enterococcus species Plus growth of clinically insignificant bacterial elia. Organism Antibiotic Method Susceptibility Enterococcus species Ampicillin Susceptible Enterococcus species Vancomycin Susceptible Enterococcus species Nitrofurantoin Susceptible Enterococcus species Doxycycline Resistant Historical Provider LAB MICROBIOLOGY - GENERA L ORDERABLES Final Result Performing Organization Address City/State/[facility] Co de Phone Number HISTORICAL RESULTS * Blood culture (10/22/2013 11:18 PM CDT) Blood specimen (specimen) (Peripheral) 10/22/2013 11:18 PM CDT 10/22/2013 11:46 PM CDT Impressions HISTORICAL RESULTS - 10/29/2013 5:43 AM CDT Blood cultures are incubated for five days on a continuously monitored blood culture system. ??The first report of a negative culture is issued within 24 hours of receipt of the specimen in the laboratory. ??Positive culture results are reported as soon as they are detected. ??For blood cultures with gram-positive cocci, a rapid molecular test for organism identification may be performed using the [employer]ig[employer] Nanosphere Gram Positive Blood Culture Assay. ??The Nanosphere assay detects microbial DNA in positive blood culture broth via hybridization of target DNA to capture oligonucleotides on a microarray. ??This assay has been cleared by the [place] Food and Drug Administration and its performance characteristics have been verified by the [facility]. Current Interpretive Data was last revised on 2013. Narrative HISTORICAL RESULTS - 10/29/2013 5:43 AM CDT No growth Historical Provider LAB MICROBIOLOGY - GENERA L ORDERABLES Final Result Performing Organization Address City/[facility]/ZIP Co de Phone Number HISTORICAL RESULTS * Blood culture (10/22/2013 11:18 PM CDT) Blood specimen (specimen) (Peripheral) 10/22/2013 11:18 PM CDT 10/22/2013 11:46 PM CDT Impressions HISTORICAL RESULTS - 10/29/2013 5:43 AM CDT Blood cultures are incubated for five days on a continuously monitored blood culture system. ??The first report of a negative culture is issued within 24 hours of receipt of the specimen in the laboratory. ??Positive culture results are reported as soon as they are detected. ??For blood cultures with gram-positive cocci, a rapid molecular test for organism identification may be performed using the [employer] Nanosphere Gram Positive Blood Culture Assay. ??The Nanosphere assay detects microbial DNA in positive blood culture broth via hybridization of target DNA to capture oligonucleotides on a microarray. ??This assay has been cleared by the [place] Food and Drug Administration and its performance characteristics have been verified by the [facility]. Current Interpretive Data was last revised on 2013. Narrative HISTORICAL RESULTS - 10/29/2013 5:43 AM CDT No growth us Historical Provider LAB MICROBIOLOGY - GENERA L ORDERABLES Final Result HISTORICAL RESULTS * Aerobic culture and Gram stain (10/22/2013 11:18 PM CDT) Sputum (Unknown) 10/22/2013 11:18 PM CDT 10/22/2013 11:18 PM CDT us Historical Provider LAB MICROBIOLOGY - GENERA L ORDERABLES Final Result HISTORICAL RESULTS * XR Chest 1 View (10/22/2013 8:50 PM CDT) Anatomical Region Laterality Modality Body, Chest N/A Radiographic Tawanna ging 10/22/2013 8:50 PM CDT Narrative 10/23/2013 8:34 AM CDT JONATAN HORAN M.D. FINAL REPORT ACC# ??Date Time ??Exam [id number] Oct 22, 2013 20:50:00 11532 Chest 1 view Frontal EXAMINATION: ?? 1. Chest 1 view, portable COMPARISON: 10/22/2013 IMPRESSION: ?? Endotracheal tube tip is 5 cm above the Ti. Nasogastric tube courses below the diaphragm. Worsening of right greater the left bibasilar atelectasis is noted. No pleural effusion or pneumothorax. Heart normal in size. Requested By: JUANI GRIER M.D. Dictated By: ?? JONATAN HORAN M.D. ??on Oct 23 2013 ??8:34A This document has been electronically signed by: JONATAN HORAN M.D. on Oct 23 2013 ??8:34A Procedure Note Provider, Mirna, - 07/28/2016 JONATAN HORAN M.D. FINAL REPORT ACC# Date Time Exam [id number] Oct 22, 2013 20:50:00 [id number] Chest 1 view Frontal EXAMINATION: 1. Chest 1 view, portable COMPARISON: 10/22/2013 IMPRESSION: Endotracheal tube tip is 5 cm above the Ti. Nasogastric tube courses below the diaphragm. Worsening of right greater the left bibasilar atelectasis is noted. No pleural effusion or pneumothorax. Heart normal in size. Requested By: JUANI GRIER M.D. Dictated By: JONATAN HORAN M.D. on Oct 23 2013 8:34A This document has been electronically signed by: JONATAN HORAN M.D. on Oct 23 2013 8:34A us Historical Provider IMG XR PROCEDURES Final R esult * ABDOMINAL RADIOGRAPHY, FRONTAL (AP) (10/22/2013 8:50 PM CDT) Anatomical Region Laterality Modality N/A Radiographic Tawanna ging 10/22/2013 8:50 PM CDT Narrative 10/23/2013 8:30 AM CDT ALVINO MACIEL M.D. FINAL REPORT ACC# ??Date Time ??Exam [id number] Oct 22, 2013 20:50:00 [id number] Abdomen single view AP EXAMINATION: ??Single portable supine AP radiograph of the abdomen COMPARISON: 10/19/2013 FINDINGS: An enteric tube is seen coursing midline through the chest and into the upper abdomen. It is sufficiently beyond the gastroesophageal junction with the tip directed toward the fundus. Side-port is not well seen. There is minimal right basilar atelectasis. Gas is seen within the colon. The lower abdomen and pelvis are excluded. Lower lumbar instrumented fusion is noted. IMPRESSION: ?? Appropriate placement of enteric tube. Requested By: CLAUDIA CONDON ANP Dictated By: ?? ALVINO MACIEL M.D. ??on Oct 23 2013 ??8:30A This document has been electronically signed by: ALVINO MACIEL M.D. on Oct 23 2013 ??8:30A Procedure Note Provider, MD Mirna - 07/28/2016 ALVINO MACIEL M.D. FINAL REPORT ACC# Date Time Exam [id number] Oct 22, 2013 20:50:00 [id number] Abdomen single view AP EXAMINATION: Single portable supine AP radiograph of the abdomen COMPARISON: 10/19/2013 FINDINGS: An enteric tube is seen coursing midline through the chest and into the upper abdomen. It is sufficiently beyond the gastroesophageal junction with the tip directed toward the fundus. Side-port is not well seen. There is minimal right basilar atelectasis. Gas is seen within the colon. The lower abdomen and pelvis are excluded. Lower lumbar instrumented fusion is noted. IMPRESSION: Appropriate placement of enteric tube. Requested By: CLAUDIA CONDON ANP Dictated By: ALVINO MACIEL M.D. on Oct 23 2013 8:30A This document has been electronically signed by: ALVINO MACIEL M.D. on Oct 23 2013 8:30A Historical Provider IMG XR PROCEDURES Final R esult * (ABNORMAL) Blood gas, arterial (10/22/2013 8:33 PM CDT) Ph, art 7.37 7.35 - 7.45 HISTORICAL RESULTS PCO2 43 35 - 45 mm Hg HISTORICAL RESULTS PO2, art 77(L) 80 - 105 mm Hg HISTORICAL RESULTS CO2, calc, art 26 21 - 30 mmol/L HISTORICAL RESULTS A-a gradient Not Applicable mm Hg HI STORICAL RESULTS O2, inspired, %, art Not Applicable % HISTORICAL RESULTS Oxygen (O2), inspired fraction (FiO2) Not Applicable liters HISTORICAL RESULTS Arterial blood 10/22/2013 8: 33 PM CDT Juani Grier MD LAB BLOOD ORDERABLES Myrna l Result Performing Organization Address City/[facility] Co de Phone Number HISTORICAL RESULTS * Blood ABO, Rh, indirect ab screen (10/22/2013 8:29 PM CDT) ABO, Rho(D) O Positive HISTORI SHALA RESULTS Madhavi, indirect Negative HISTORICAL RESULTS Blood specimen (specimen) 10/22/2013 8:29 PM CDT Juani Grier MD LAB BLOOD ORDERABLES Myrna l Result HISTORICAL RESULTS * (ABNORMAL) Plasma comprehensive metabolic panel (10/22/2013 8:29 PM CDT) Sodium 141 135 - 145 mmol/L HISTORICAL RESULTS K, pl 4.4 3.3 - 4.9 mmol/L HISTORICAL RESULTS Chloride 108 97 - 110 mmol/L HISTORICAL RESULTS CO2 26 22 - 32 mmol/L HISTORICAL RESULTS A. gap 7 0 - 16 mmol/L HISTORICAL RESULTS Glucose 128 70 - 199 mg/dl HISTORICAL RESULTS BUN 13 8 - 25 mg/dl HISTORICAL RESULTS Creatinine 1.15 0.70 - 1.30 mg/dl HISTORICAL RESULTS Calcium 8.2(L) 8.6 - 10.3 mg/dl HISTORICAL RESULTS Protein, pl 7.0 6.5 - 8.5 g/dl HISTORICAL RESULTS Alb 3.4(L) 3.6 - 5.0 g/dl HISTORICAL RESULTS Bilirubin 0.4 0.3 - 1.1 mg/dl HISTORICAL RESULTS Alk phos 52 38 - 126 Units/L HISTORICAL RESULTS AST 30 11 - 47 Units/L HISTORICAL RESULTS ALT 30 7 - 53 Units/L HISTORICAL RESULTS Plasma 10/22/2013 8:29 PM CDT Result [facility] Juani Grier MD LAB BLOOD ORDERABLES Myrna l Result Performing Organization Address [facility] de Phone Number HISTORICAL RESULTS * Plasma partial thromboplastin time (PTT) (10/22/2013 8:29 PM CDT) APTT 31.4 25.0 - 37.0 seconds HISTORICAL RESULTS Comment: Interpretive Data Therapeutic heparin range:60.0 - 94.0 sec based on correlation with therapeutic heparin activity range of 0.3 -0.7 Units/mL. Current interpretive data was last revised on 2011. Plasma 10/22/2013 8:29 PM CDT Juani Grier MD LAB BLOOD ORDERABLES Myrna l Result Performing Organization Address [facility] de Phone Number HISTORICAL RESULTS * (ABNORMAL) Plasma phosphorus (10/22/2013 8:29 PM CDT) Phosphorus, pl 4.6(H) 2.3 - 4.3 mg/dl HISTORICAL RESULTS Plasma 10/22/2013 8:29 PM CDT Juani Grier MD LAB BLOOD ORDERABLES Myrna l Result Performing Organization Address [facility] de Phone Number HISTORICAL RESULTS * (ABNORMAL) Plasma prothrombin time (PT) (10/22/2013 8:29 PM CDT) Prothrombin time (PT) 13.9(H) 9.0 - 12.0 seconds HISTORICAL RESULTS INR 1.31(H) 0.90 - 1.20 HISTORIC AL RESULTS Comment: Interpretive Data Inpatient therapeutic ranges* Atrial fibrillation ?2.0-3.0 INR Venous thrombo-embolism ?2.0-3.0 INR Bioprosthetic heart valve ?* Mechanical heart valve, bileaflet or tilting disk,aortic position ? 2.0-3.0 INR All other,or bileaflet or tilting disk, in mitral position ? 2.5-3.5 INR *See the pharmacy resource directory (PHRED) for an updated copy of the Tool Book at [email or web address] Current Interpretive Data was last revised 2011. Plasma 10/22/2013 8:29 PM CDT Juani Grier MD LAB BLOOD ORDERABLES Myrna l Result Performing Organization Address [facility] de Phone Number HISTORICAL RESULTS * Serum magnesium (10/22/2013 8:29 PM CDT) Pathologist [facility] Magnesium 2.0 1.4 - 2.5 mg/dl HISTORICAL RESULTS Serum 10/22/2013 8:29 PM CDT Juani Grier MD LAB BLOOD ORDERABLES Myrna l Result Performing Organization Address [facility] de Phone Number HISTORICAL RESULTS * (ABNORMAL) Blood cell count (CBC) (10/22/2013 8:29 PM CDT) WBC 13.5(H) 3.8 - 9.8 K/cumm HISTORICAL RESULTS RBC 2.74(L) 4.50 - 5.70 M/cumm HISTORICAL RESULTS Hgb 9.3(L) 13.8 - 17.2 g/dl HISTORICAL RESULTS Hct 27.4(L) 40.7 - 50.3 % HISTORICAL RESULTS MCV 100.0(H) 80.0 - 97.6 fl HISTORICAL RESULTS MCH 33.8(H) 26.7 - 33.7 pg HISTORICAL RESULTS MCHC 33.8 32.7 - 35.5 g/dl HISTORICAL RESULTS Rdw 12.5 11.8 - 14.6 % HISTORICAL RESULTS Platelets 403 140 - 440 K/cumm HISTORICAL RESULTS MPV 8.0 6.8 - 10.4 fl HISTORICAL RESULTS Neutrophils 88.0(H) 38.7 - 74.5 % HISTORICAL RESULTS Lymphocytes 4.8(L) 20.0 - 54.3 % HISTORICAL RESULTS Monos 6.7 4.3 - 13.5 % HISTORICAL RESULTS Eosinophils 0.4 0.0 - 6.0 % HISTORICAL RESULTS Basophils 0.1 0.0 - 3.0 % HISTORICAL RESULTS Neutrophils, abs 11.9(H) 1.8 - 6.6 K/cumm HISTORICAL RESULTS Lymphocytes, abs 0.6(L) 1.2 - 3.3 K/cumm HISTORICAL RESULTS Monocytes, absolute 0.9 0.2 - 1.2 K/cumm HISTORICAL RESULTS Eosinophils, abs 0.1 0.0 - 0.5 K/cumm HISTORICAL RESULTS Basophils, abs 0.0 0.0 - 0.2 K/cumm HISTORICAL RESULTS Blood specimen (specimen) 10/22/2013 8:29 PM CDT Juani Grier MD LAB BLOOD ORDERABLES Myrna l Result HISTORICAL RESULTS * Blood glucose, POC (10/22/2013 8:23 PM CDT) Pathologist [facility] Glucose, POC, bld 132 70 - 199 mg/dl HISTORICAL RESULTS Blood specimen (specimen) 10/22/2013 8:23 PM CDT Golden Chowdary MD LAB BLOOD ORDERABLES Final Result Performing Organization Address [facility]/ZIP Co de Phone Number HISTORICAL RESULTS * (ABNORMAL) Blood gas, point of care, arterial (10/22/2013 5:21 PM CDT) Ph, art 7.43 7.35 - 7.45 HISTORICAL RESULTS PCO2 40 35 - 45 mm Hg HISTORICAL RESULTS PO2, art 81 80 - 105 mm Hg HISTORICAL RESULTS Sodium, bld 138 135 - 145 mmol/L HISTORICAL RESULTS Potassium, bld 3.5 3.3 - 4.9 mmol/L HISTORICAL RESULTS Ca, ionized, bld 4.65 4.50 - 5.10 mg/dl HISTORICAL RESULTS Hct 29.0(L) 40.7 - 50.3 % HISTORICAL RESULTS Glu, art 116 70 - 199 mg/dl HISTORICAL RESULTS HCO3, art 27 20 - 30 mmol/L HISTORICAL RESULTS CO2, calc, art 28 22 - 32 mmol/L HISTORICAL RESULTS BE, art 2.0 mmol/L HISTORICAL RESULTS O2 sat, art 96 95 - 98 % HISTORIC AL RESULTS Arterial blood 10/22/2013 5: 21 PM CDT Result [facility] Sherron Mahan MD LAB BLOOD ORDERABLES Fi nal Result Performing Organization Address [facility] de Phone Number HISTORICAL RESULTS * Blood glucose, POC (10/22/2013 2:21 PM CDT) Glucose, POC, bld 133 70 - 199 mg/dl HISTORICAL RESULTS Blood specimen (specimen) 10/22/2013 2:21 PM CDT Result [facility] Sherron Mahan MD LAB BLOOD ORDERABLES Fi nal Result Performing Organization Address City/[facility]/ZIP Co de Phone Number HISTORICAL RESULTS * Serum osmolality (10/22/2013 2:19 PM CDT) Osmo 295 275 - 300 mOsm/kg HISTORICAL RESULTS Serum 10/22/2013 2:19 PM CDT Historical Provider LAB BLOOD ORDERABLES Myrna l Result Performing Organization Address City/[facility] Co de Phone Number HISTORICAL RESULTS * Plasma basic metabolic panel (10/22/2013 2:19 PM CDT) Sodium 139 135 - 145 mmol/L HISTORICAL RESULTS K, pl 3.8 3.3 - 4.9 mmol/L HISTORICAL RESULTS Chloride 104 97 - 110 mmol/L HISTORICAL RESULTS CO2 25 22 - 32 mmol/L HISTORICAL RESULTS A. gap 10 0 - 16 mmol/L HISTORICAL RESULTS Glucose 134 70 - 199 mg/dl HISTORICAL RESULTS BUN 13 8 - 25 mg/dl HISTORICAL RESULTS Creatinine 1.00 0.70 - 1.30 mg/dl HISTORICAL RESULTS Calcium 9.0 8.6 - 10.3 mg/dl HISTORICAL RESULTS Plasma 10/22/2013 2:19 PM CDT Historical Provider LAB BLOOD ORDERABLES Myrna l Result Performing Organization Address [facility] Co de Phone Number HISTORICAL RESULTS * Blood glucose, POC (10/22/2013 8:17 AM CDT) Glucose, POC, bld 152 70 - 199 mg/dl HISTORICAL RESULTS Blood specimen (specimen) 10/22/2013 8:17 AM CDT Sherron Mahan MD LAB BLOOD ORDERABLES Fi nal Result Performing Organization Address [facility] Co de Phone Number HISTORICAL RESULTS * CT Head WO Contrast (10/22/2013 5:15 AM CDT) Anatomical Region Laterality Modality Head and Neck N/A Computed Tomogra phy 10/22/2013 5:15 AM CDT Narrative 10/22/2013 12:25 PM CDT YUAN MCKEON M.D. MARIS PRICE M.D. FINAL REPORT The radiology attending physician has personally reviewed this study, and has reviewed and/or edited this written report and agrees with it. ACC# ??Date Time ??Exam [id number] Oct 22, 2013 05:15:[id number] Head or Brain w/o cont ACC# ??Date Time ??Exam [id number] Oct 22, 2013 05:15:[id number] Head or Brain w/o cont EXAMINATION: ?? Portable Noncontrast head CT HISTORY: Large left MCA stroke TECHNIQUE: Portable noncontrast CT was performed with contiguous transaxial images acquired from skull base to vertex. COMPARISON: 10/21/2013 FINDINGS: Evolving large left middle cerebral artery distribution infarct with surrounding cytotoxic edema as well as a dense left middle cerebral artery. There is increased left uncal herniation with increased mass effect on the left lateral ventricle as well as increased approximately 9 mm rightward midline shift. There is no acute intra or extra-axial fluid collection. The visualized portions of the orbits, and paranasal sinuses, and mastoids are normal. No fractures are identified. ?? IMPRESSION: ?? Evolving large left middle cerebral artery territory infarct with increased mass effect on the left lateral ventricle, increased rightward midline shift, and developing left uncal herniation. These findings were discussed with Dr. Nassar by Dr. Price at 925 am. ?? Requested By: CLAUDIA CONDON ANP Dictated By: ?? MARIS PRICE M.D. ??on Oct 22 2013 10:07A This document has been electronically signed by: YUAN MCKEON M.D. on Oct 22 2013 12:25P Procedure Note Provider, MD Mirna - 07/28/2016 YUAN MCKEON M.D. MARIS PRICE M.D. FINAL REPORT The radiology attending physician has personally reviewed this study, and has reviewed and/or edited this written report and agrees with it. ACC# Date Time Exam [id number] Oct 22, 2013 05:15:[id number] Head or Brain w/o cont ACC# Date Time Exam [id number] Oct 22, 2013 05:15:[id number] Head or Brain w/o cont EXAMINATION: Portable Noncontrast head CT HISTORY: Large left MCA stroke TECHNIQUE: Portable noncontrast CT was performed with contiguous transaxial images acquired from skull base to vertex. COMPARISON: 10/21/2013 FINDINGS: Evolving large left middle cerebral artery distribution infarct with surrounding cytotoxic edema as well as a dense left middle cerebral artery. There is increased left uncal herniation with increased mass effect on the left lateral ventricle as well as increased approximately 9 mm rightward midline shift. There is no acute intra or extra-axial fluid collection. The visualized portions of the orbits, and paranasal sinuses, and mastoids are normal. No fractures are identified. IMPRESSION: Evolving large left middle cerebral artery territory infarct with increased mass effect on the left lateral ventricle, increased rightward midline shift, and developing left uncal herniation. These findings were discussed with Dr. Nassar by Dr. Price at 925 am. Requested By: CLAUDIA CONDON ANP Dictated By: MARIS PRICE M.D. on Oct 22 2013 10:07A This document has been electronically signed by: YUAN MCKEON M.D. on Oct 22 2013 12:25P us Historical Provider MD IMG CT PROCEDURES Final R esult * Blood glucose, POC (10/22/2013 2:05 AM CDT) [facility] Glucose, POC, bld 138 70 - 199 mg/dl HISTORICAL RESULTS Blood specimen (specimen) 10/22/2013 2:05 AM CDT Sherron Mahan MD LAB BLOOD ORDERABLES Fi nal Result HISTORICAL RESULTS * XR Chest 1 View (10/22/2013 1:05 AM CDT) Anatomical Region Laterality Modality Body, Chest N/A Radiographic Tawanna ging 10/22/2013 1:05 AM CDT Narrative 10/22/2013 5:01 PM CDT FIDEL PEREIRA M.D. NNEKA LATHAM M.D. FINAL REPORT The radiology attending physician has personally reviewed this study, and has reviewed and/or edited this written report and agrees with it. ACC# ??Date Time ??Exam [id number] Oct 22, 2013 01:05:00 [id number] Chest 1 view Frontal EXAMINATION: ?? Chest One View ?? IMPRESSION: ?? Comparison 10/21/2013 at 0818. Redemonstration of endotracheal tube terminating 5-6 cm above the ti. Nasogastric tube descends below the diaphragm and beyond the [id number]. Mild bibasilar atelectasis, slightly improved on the left. No definite pleural effusion, however the left costophrenic angle is cut off from the inaxy-rg-pjhy. No pneumothorax. The cardiac mediastinal silhouette is stable. ?? Requested By: FORTINO ROCA M.D. Dictated By: ?? NNEKA LATHAM M.D. ??on Oct 22 2013 10:11A This document has been electronically signed by: FIDEL PEREIRA M.D. on Oct 22 2013 ??5:01P Procedure Note Provider, MD Mirna - 07/28/2016 Tanja HAND M.D. FINAL REPORT The radiology attending physician has personally reviewed this study, and has reviewed and/or edited this written report and agrees with it. ACC# Date Time Exam [id number] Oct 22, 2013 01:05:00 [id number] Chest 1 view Frontal EXAMINATION: Chest One View IMPRESSION: Comparison 10/21/2013 at 0818. Redemonstration of endotracheal tube terminating 5-6 cm above the ti. Nasogastric tube descends below the diaphragm and beyond the rbrud-dn-[id number]. Mild bibasilar atelectasis, slightly improved on the left. No definite pleural effusion, however the left costophrenic angle is cut off from the [id number]-qb-[id number]. No pneumothorax. The cardiac mediastinal silhouette is stable. Requested By: FORTINO ROCA M.D. Dictated By: NNEKA LATHAM M.D. on Oct 22 2013 10:11A This document has been electronically signed by: FIDEL PEREIRA M.D. on Oct 22 2013 5:01P us Historical Provider [facility] XR PROCEDURES Final R esult * (ABNORMAL) Blood gas, arterial (10/22/2013 12:13 AM CDT) Ph, art 7.44 7.35 - 7.45 HISTORICAL RESULTS PCO2 33(L) 35 - 45 mm Hg HISTORICAL RESULTS PO2, art 109(H) 80 - 105 mm Hg HISTORICAL RESULTS CO2, calc, art 23 21 - 30 mmol/L HISTORICAL RESULTS A-a gradient 135 mm Hg HISTORI SHALA RESULTS O2, inspired, %, art 40 % HISTORICAL RESULTS Oxygen (O2), inspired fraction (FiO2) Not Applicable liters HISTORICAL RESULTS Arterial blood 10/22/2013 12 :13 AM CDT Jose Greenberg LAB BLOOD ORDERABLES Final Resu Performing Organization Address [facility] de Phone Number HISTORICAL RESULTS * Plasma basic metabolic panel (10/22/2013 12:13 AM CDT) Sodium 138 135 - 145 mmol/L HISTORICAL RESULTS K, pl 3.9 3.3 - 4.9 mmol/L HISTORICAL RESULTS Chloride 106 97 - 110 mmol/L HISTORICAL RESULTS CO2 23 22 - 32 mmol/L HISTORICAL RESULTS A. gap 9 0 - 16 mmol/L HISTORICAL RESULTS Glucose 158 70 - 199 mg/dl HISTORICAL RESULTS BUN 13 8 - 25 mg/dl HISTORICAL RESULTS Creatinine 0.96 0.70 - 1.30 mg/dl HISTORICAL RESULTS Calcium 8.7 8.6 - 10.3 mg/dl HISTORICAL RESULTS Plasma 10/22/2013 12:1 3 AM CDT Jose Greenberg LAB BLOOD ORDERABLES Final Resu Performing Organization Address [facility] de Phone Number HISTORICAL RESULTS * (ABNORMAL) Blood cell count (CBC) (10/22/2013 12:13 AM CDT) WBC 14.6(H) 3.8 - 9.8 K/cumm HISTORICAL RESULTS RBC 2.91(L) 4.50 - 5.70 M/cumm HISTORICAL RESULTS Hgb 9.9(L) 13.8 - 17.2 g/dl HISTORICAL RESULTS Hct 28.7(L) 40.7 - 50.3 % HISTORICAL RESULTS MCV 98.7(H) 80.0 - 97.6 fl HISTORICAL RESULTS MCH 34.2(H) 26.7 - 33.7 pg HISTORICAL RESULTS MCHC 34.6 32.7 - 35.5 g/dl HISTORICAL RESULTS Rdw 12.4 11.8 - 14.6 % HISTORICAL RESULTS Platelets 314 140 - 440 K/cumm HISTORICAL RESULTS MPV 8.3 6.8 - 10.4 fl HISTORICAL RESULTS Neutrophils 85.2(H) 38.7 - 74.5 % HISTORICAL RESULTS Lymphocytes 6.3(L) 20.0 - 54.3 % HISTORICAL RESULTS Monos 6.5 4.3 - 13.5 % HISTORICAL RESULTS Eosinophils 1.4 0.0 - 6.0 % HISTORICAL RESULTS Basophils 0.6 0.0 - 3.0 % HISTORICAL RESULTS Neutrophils, abs 12.4(H) 1.8 - 6.6 K/cumm HISTORICAL RESULTS Lymphocytes, abs 0.9(L) 1.2 - 3.3 K/cumm HISTORICAL RESULTS Monocytes, absolute 1.0 0.2 - 1.2 K/cumm HISTORICAL RESULTS Eosinophils, abs 0.2 0.0 - 0.5 K/cumm HISTORICAL RESULTS Basophils, abs 0.1 0.0 - 0.2 K/cumm HISTORICAL RESULTS Blood specimen (specimen) 10/22/2013 12:13 AM CDT us Jose Greenberg LAB BLOOD ORDERABLES Final Resu lt HISTORICAL RESULTS * All Microbiology Report Section (10/22/2013 12:00 AM CDT) 10/22/2013 Narrative HISTORICAL RESULTS - 11/13/2013 3:59 AM CDT ? [facility] ?[facility] ?[place], [place] [address] ? Patient Name: ??CURLY ANGELO ? Med Rec Number: [id number] ? Fin Number: ?[id number] ? Date: ?1955 ? Sex/Age: ? Male 58 years ? Admit Date: ?10/19/2013 ? Discharge Date: 11/12/2013 ? Doctor: ?Keychandniz , Salah G ? Facility: ?[facility] ? Location: ?[address]14 [id number] 02 ?* Abnormal ??A Alert ??f Footnote ??^ Corrected ??L Low ??H High ?i Interp Data ??@ Ref Lab ? Chart Type:Cumulative ?* * * * MICROBIOLOGY - URINE * * * * ?PROCEDURE: Urine Culture ? SOURCE: Urine, catheterized ? COLLECTED: 10/22/14 ??2318 ?BODY SITE: ? STARTED: /25/14 ??2347 ? FREE TEXT SOURCE: ? FINAL REPORT ? REPORTED: 10/26/13 1035 ? Greater than or equal to 5,000 colonies/ml of Enterococcus ? species Plus growth of clinically insignificant bacterial elia. ? SUSCEPTIBILITY RESULTS ? Enterococcus species ?SUSCEPTIBLE: Ampicillin,Vancomycin, ? Nitrofurantoin ?RESISTANT: Doxycycline ? us Historical Provider MD LAB MICROBIOLOGY - GENERA L ORDERABLES Final Result HISTORICAL RESULTS * All Microbiology Report Section (10/22/2013 12:00 AM CDT) 10/22/2013 Narrative HISTORICAL RESULTS - 11/13/2013 3:59 AM CDT ? [facility] ?[facility] ?[place] [address] ? Patient Name: ??GI CURLY ? Med Rec Number: [id number] ? Fin Number: ?[id number] ? Date: ?1955 ? Sex/Age: ? Male 58 years ? Admit Date: ?10/19/2013 ? Discharge Date: 11/12/2013 ? Doctor: ?Sherron Mahan ? Facility: ?[facility] ? Location: ?[address]14 [id number] 02 ?* Abnormal ??A Alert ??f Footnote ??^ Corrected ??L Low ??H High ?i Interp Data ??@ Ref Lab ? Chart Type:Cumulative ?* * * * MICROBIOLOGY - BLOOD/STERILE FLUID * * * * ?PROCEDURE: Aerobic, Anaerobic and Mycology Culture, Blood ? SOURCE: Blood ? COLLECTED: 10/22/ ??2318 ?BODY SITE: Peripheral ? STARTED: 10/22/ ??2346 ? FREE TEXT SOURCE: ? FINAL REPORT ? REPORTED: 10/29/13 0543 ? No growth ?* * * ??Interpretive Results ??* * * ? (1)Blood cultures are incubated for five days on a continuously ? monitored blood culture system. ??The first report of a negative ? culture is issued within 24 hours of receipt of the specimen in ? the laboratory. ??Positive culture results are reported as soon ? as they are detected. ??For blood cultures with gram-positive ? cocci, a rapid molecular test for organism identification may be ? performed using the [employer]underloop Nanosphere Gram Positive Blood ? Culture Assay. ??The Nanosphere assay detects microbial DNA in ? positive blood culture broth via hybridization of target DNA to ? capture oligonucleotides on a microarray. ??This assay has been ? cleared by the [place] Food and Drug Administration and ? its performance characteristics have been verified by the ? [facility].Current ? Interpretive Data was last revised on 2013. ? us Historical Provider MD LAB MICROBIOLOGY - GENERA L ORDERABLES Final Result HISTORICAL RESULTS * All Microbiology Report Section (10/22/2013 12:00 AM CDT) 10/22/2013 Narrative HISTORICAL RESULTS - 11/13/2013 3:59 AM CDT ? [facility] ?[facility] ?[place] [id number] ? Patient Name: ??CURLY ANGELO ? Med Rec Number: [id number] ? Fin Number: ?[id number] ? Date: ?1955 ? Sex/Age: ? Male 58 years ? Admit Date: ?10/19/2013 ? Discharge Date: 11/12/2013 ? Doctor: ?Sherron Mahan ? Facility: ?[facility] ? Location: ?[address]14 [address] 02 ?* Abnormal ??A Alert ??f Footnote ??^ Corrected ??L Low ??H High ?i Interp Data ??@ Ref Lab ? Chart Type:Cumulative ?* * * * MICROBIOLOGY - BLOOD/STERILE FLUID * * * * ?PROCEDURE: Aerobic, Anaerobic and Mycology Culture, Blood ? SOURCE: Blood ? COLLECTED: 10/22/13 ??2318 ?BODY SITE: Peripheral ? STARTED: 10/22/13 ??2346 ? FREE TEXT SOURCE: ? FINAL REPORT ? REPORTED: 10/29/13 0543 ? No growth ?* * * ??Interpretive Results ??* * * ? (1)Blood cultures are incubated for five days on a continuously ? monitored blood culture system. ??The first report of a negative ? culture is issued within 24 hours of receipt of the specimen in ? the laboratory. ??Positive culture results are reported as soon ? as they are detected. ??For blood cultures with gram-positive ? cocci, a rapid molecular test for organism identification may be ? performed using the [employer]loop Nanosphere Gram Positive Blood ? Culture Assay. ??The Nanosphere assay detects microbial DNA in ? positive blood culture broth via hybridization of target DNA to ? capture oligonucleotides on a microarray. ??This assay has been ? cleared by the [place] Food and Drug Administration and ? its performance characteristics have been verified by the ? [facility].Current ? Interpretive Data was last revised on 2013. ? us Historical Provider LAB MICROBIOLOGY - GENERA L ORDERABLES Final Result HISTORICAL RESULTS * All Microbiology Report Section (10/22/2013 12:00 AM CDT) 10/22/2013 Narrative HISTORICAL RESULTS - 11/13/2013 3:59 AM CDT ? [facility] ?[facility] ?[place] [address] ? Patient Name: ??CURLY NAGELO ? Med Rec Number: [id number] ? Fin Number: ?[id number] ? Date: ?1955 ? Sex/Age: ? Male 58 years ? Admit Date: ?10/19/2013 ? Discharge Date: 11/12/2013 ? Doctor: ?Sherron Mahan ? Facility: ?[facility] ? Location: ?[address]14 [id number] 02 ?* Abnormal ??A Alert ??f Footnote ??^ Corrected ??L Low ??H High ?i Interp Data ??@ Ref Lab ? Chart Type:Cumulative ?* * * * MICROBIOLOGY - RESPIRATORY * * * * ?PROCEDURE: Aerobic Culture, Respiratory and Gram Stain ? SOURCE: Tracheal Aspirate ? COLLECTED: 10/22/13 ??2318 ?BODY SITE: ? STARTED: 10/22/13 ??2345 ? FREE TEXT SOURCE: ? DIRECT SPECIMEN EXAMINATION ? Stain ? REPORTED: 10/23/13 0054 ? Abundant polymorphonuclear leukocytes seen. Abundant mixed ? bacterial elia seen on Gram stain. Few squamous epithelial ? cells seen. ? FINAL REPORT ? REPORTED: 10/25/13 1403 ? Growth indicates upper respiratory elia contamination. Includes ? the following: Less than 100,000 colonies/ml of Beta Hemolytic ? Streptococcus, Group F Routine susceptibility testing not ? performed. Historical Provider LAB MICROBIOLOGY - GENERA L ORDERABLES Final Result Performing Organization Address [facility] Co de Phone Number HISTORICAL RESULTS * Blood glucose, POC (10/21/2013 8:23 PM CDT) Glucose, POC, bld 147 70 - 199 mg/dl HISTORICAL RESULTS Blood specimen (specimen) 10/21/2013 8:23 PM CDT Sherron Mahan MD LAB BLOOD ORDERABLES Fi nal Result Performing Organization Address [facility] de Phone Number HISTORICAL RESULTS * Plasma basic metabolic panel (10/21/2013 2:09 PM CDT) Sodium 140 135 - 145 mmol/L HISTORICAL RESULTS K, pl 4.1 3.3 - 4.9 mmol/L HISTORICAL RESULTS Chloride 108 97 - 110 mmol/L HISTORICAL RESULTS CO2 24 22 - 32 mmol/L HISTORICAL RESULTS A. gap 8 0 - 16 mmol/L HISTORICAL RESULTS Glucose 147 70 - 199 mg/dl HISTORICAL RESULTS BUN 11 8 - 25 mg/dl HISTORICAL RESULTS Creatinine 1.08 0.70 - 1.30 mg/dl HISTORICAL RESULTS Calcium 8.6 8.6 - 10.3 mg/dl HISTORICAL RESULTS Plasma 10/21/2013 2:09 PM CDT Historical Provider LAB BLOOD ORDERABLES Myrna l Result Performing Organization Address [facility] Co de Phone Number HISTORICAL RESULTS * Blood glucose, POC (10/21/2013 1:29 PM CDT) Glucose, POC, bld 147 70 - 199 mg/dl HISTORICAL RESULTS Blood specimen (specimen) 10/21/2013 1:29 PM CDT Sherron Mahan MD LAB BLOOD ORDERABLES Fi nal Result Performing Organization Address [facility] Co de Phone Number HISTORICAL RESULTS * Blood glucose, POC (10/21/2013 8:12 AM CDT) Glucose, POC, bld 138 70 - 199 mg/dl HISTORICAL RESULTS Blood specimen (specimen) 10/21/2013 8:12 AM CDT us Sherron Mahan MD LAB BLOOD ORDERABLES Fi nal Result HISTORICAL RESULTS * XR Chest 1 View (10/21/2013 8:11 AM CDT) Anatomical Region Laterality Modality Body, Chest N/A Radiographic Tawanna ging 10/21/2013 8:11 AM CDT Narrative 10/21/2013 12:08 PM CDT ELIZABETH POOLE M.D. FINAL REPORT ACC# ??Date Time ??Exam [id number] Oct 20, 2013 19:04:00 33091 Chest 1 view Frontal [id number] Oct 21, 2013 08:11:00 [id number] Chest 1 view Frontal EXAMINATION: ?? Two ??One View Portable Chests IMPRESSION: ?? First exam: The endotracheal tube is approximately 6 centimeters above the ti. A nasogastric tube is present, tip extends at least to stomach. there is patchy bibasilar atelectasis but no pleural effusions There is no pneumothorax.. The heart and mediastinal contours are normal. Second exam no change Requested By: SHIRIN TERRY ??M.D. Dictated By: ?? ELIZABETH POOLE M.D. ??on Oct 21 2013 12:08P This document has been electronically signed by: ELIZABETH POOLE M.D. on Oct 21 2013 12:08P Procedure Note Provider, MD Mirna - 07/28/2016 ELIZABETH POOLE M.D. FINAL REPORT ACC# Date Time Exam [id number] Oct 20, 2013 19:04:00 20484 Chest 1 view Frontal [id number] Oct 21, 2013 08:11:00 [id number] Chest 1 view Frontal EXAMINATION: Two One View Portable Chests IMPRESSION: First exam: The endotracheal tube is approximately 6 centimeters above the ti. A nasogastric tube is present, tip extends at least to stomach. there is patchy bibasilar atelectasis but no pleural effusions There is no pneumothorax.. The heart and mediastinal contours arenormal. Second exam no change Requested By: SHIRIN TERRY M.D. Dictated By: ELIZABETH POOLE M.D. on Oct 21 2013 12:08P This document has been electronically signed by: ELIZABETH POOLE M.D. on Oct 21 2013 12:08P Historical Provider MD IMG XR PROCEDURES Final R esult * Blood glucose, POC (10/21/2013 7:44 AM CDT) [facility] Glucose, POC, bld 137 70 - 199 mg/dl HISTORICAL RESULTS Blood specimen (specimen) 10/21/2013 7:44 AM CDT Sherron Mahan MD LAB BLOOD ORDERABLES Fi nal Result HISTORICAL RESULTS * CT Head WO Contrast (10/21/2013 5:24 AM CDT) Anatomical Region Laterality Modality Head and Neck N/A Computed Tomogra phy 10/21/2013 5:24 AM CDT Narrative 10/21/2013 1:48 PM CDT MYA GANT M.D. MARIS PRICE M.D. FINAL REPORT The radiology attending physician has personally reviewed this study, and has reviewed and/or edited this written report and agrees with it. ACC# ??Date Time ??Exam [id number] Oct 21, 2013 05:24:[address] Head or Brain w/o cont EXAMINATION: ?? Portable Noncontrast head CT HISTORY: Left MCA infarct TECHNIQUE: Portable noncontrast CT was performed with contiguous transaxial images acquired from skull base to vertex. COMPARISON: 10/20/2013 FINDINGS: Redemonstration of the large area of hypodensity in the left middle cerebral artery territory with hyperdensity within the left middle cerebral artery which has increased from the prior exam. There is no acute intra or extra-axial fluid collection. There has been interval increase in mass effect upon the left lateral ventricle with approximately 5 mm rightward midline shift. The visualized portions of the orbits, and paranasal sinuses, and mastoids are normal. No fractures are identified. IMPRESSION: ?? 1. No acute intracranial hemorrhage. 2. 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 New mass effect upon the left lateral ventricle as well as rightward midline shift. [facility] 900 am. Requested By: MYKE NASSAR M.D. Dictated By: ?? MARIS PRICE M.D. ??on Oct 21 2013 10:56A This document has been electronically signed by: MYA GANT M.D. on Oct 21 2013 ??1:48P Procedure Note Provider, MD Mirna - 07/28/2016 Tanja FREDERICK M.D. FINAL REPORT The radiology attending physician has personally reviewed this study, and has reviewed and/or edited this written report and agrees with it. ACC# Date Time Exam [id number] Oct 21, 2013 05:24:[id number] Head or Brain w/o cont EXAMINATION: Portable Noncontrast head CT HISTORY: Left MCA infarct TECHNIQUE: Portable noncontrast CT was performed with contiguous transaxial images acquired from skull base to vertex. COMPARISON: 10/20/2013 FINDINGS: Redemonstration of the large area of hypodensity in the left middle cerebral artery territory with hyperdensity within the left middle cerebral artery which has increased from the prior exam. There is no acute intra or extra-axial fluid collection. There has been interval increase in mass effect upon the left lateral ventricle with approximately 5 mm rightward midline shift. The visualized portions of the orbits, and paranasal sinuses, and mastoids are normal. No fractures are identified. IMPRESSION: 1. No acute intracranial hemorrhage. 2. 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 New mass effect upon the left lateral ventricle as well as rightward midline shift. These findings were discussed with [facility] by Dr. rPice at 900 am. Requested By: MYKE NASSAR M.D. Dictated By: MARIS PRICE M.D. on Oct 21 2013 10:56A This document has been electronically signed by: MYA GANT M.D. on Oct 21 2013 1:48P Historical Provider IMG CT PROCEDURES Final R esult * Blood glucose, POC (10/21/2013 1:28 AM CDT) Glucose, POC, bld 132 70 - 199 mg/dl HISTORICAL RESULTS Blood specimen (specimen) 10/21/2013 1:28 AM CDT Sherron Mahan MD LAB BLOOD ORDERABLES Fi nal Result Performing Organization Address [facility] Co de Phone Number HISTORICAL RESULTS * (ABNORMAL) Blood gas, arterial (10/20/2013 11:21 PM CDT) Ph, art 7.47(H) 7.35 - 7.45 HISTORICAL RESULTS PCO2 33(L) 35 - 45 mm Hg HISTORICAL RESULTS PO2, art 77(L) 80 - 105 mm Hg HISTORICAL RESULTS CO2, calc, art 25 21 - 30 mmol/L HISTORICAL RESULTS A-a gradient 168 mm Hg HISTORI SHALA RESULTS O2, inspired, %, art 40 % HISTORICAL RESULTS Oxygen (O2), inspired fraction (FiO2) Not Applicable liters HISTORICAL RESULTS Arterial blood 10/20/2013 11 :21 PM CDT Jose Greenberg LAB BLOOD ORDERABLES Final Resu lt Performing Organization Address City/[facility]/ZIP Co de Phone Number HISTORICAL RESULTS * (ABNORMAL) Plasma basic metabolic panel (10/20/2013 11:21 PM CDT) Sodium 141 135 - 145 mmol/L HISTORICAL RESULTS K, pl 3.4 3.3 - 4.9 mmol/L HISTORICAL RESULTS Chloride 109 97 - 110 mmol/L HISTORICAL RESULTS CO2 25 22 - 32 mmol/L HISTORICAL RESULTS A. gap 7 0 - 16 mmol/L HISTORICAL RESULTS Glucose 133 70 - 199 mg/dl HISTORICAL RESULTS BUN 12 8 - 25 mg/dl HISTORICAL RESULTS Creatinine 1.05 0.70 - 1.30 mg/dl HISTORICAL RESULTS Calcium 8.4(L) 8.6 - 10.3 mg/dl HISTORICAL RESULTS Plasma 10/20/2013 11:2 1 PM CDT Jose Greenberg LAB BLOOD ORDERABLES Final Resu lt Performing Organization Address [facility] de Phone Number HISTORICAL RESULTS * Serum magnesium (10/20/2013 11:21 PM CDT) Magnesium 1.8 1.4 - 2.5 mg/dl HISTORICAL RESULTS Serum 10/20/2013 11:2 1 PM CDT Jose Greenberg LAB BLOOD ORDERABLES Final Resu lt Performing Organization Address [facility] de Phone Number HISTORICAL RESULTS * (ABNORMAL) Blood cell count (CBC) (10/20/2013 11:21 PM CDT) WBC 15.0(H) 3.8 - 9.8 K/cumm HISTORICAL RESULTS RBC 3.01(L) 4.50 - 5.70 M/cumm HISTORICAL RESULTS Hgb 10.5(L) 13.8 - 17.2 g/dl HISTORICAL RESULTS Hct 29.5(L) 40.7 - 50.3 % HISTORICAL RESULTS MCV 98.1(H) 80.0 - 97.6 fl HISTORICAL RESULTS MCH 34.8(H) 26.7 - 33.7 pg HISTORICAL RESULTS MCHC 35.5 32.7 - 35.5 g/dl HISTORICAL RESULTS Rdw 12.7 11.8 - 14.6 % HISTORICAL RESULTS Platelets 297 140 - 440 K/cumm HISTORICAL RESULTS MPV 7.4 6.8 - 10.4 fl HISTORICAL RESULTS Neutrophils 86.7(H) 38.7 - 74.5 % HISTORICAL RESULTS Lymphocytes 5.7(L) 20.0 - 54.3 % HISTORICAL RESULTS Monos 6.2 4.3 - 13.5 % HISTORICAL RESULTS Eosinophils 1.3 0.0 - 6.0 % HISTORICAL RESULTS Basophils 0.1 0.0 - 3.0 % HISTORICAL RESULTS Neutrophils, abs 13.0(H) 1.8 - 6.6 K/cumm HISTORICAL RESULTS Lymphocytes, abs 0.8(L) 1.2 - 3.3 K/cumm HISTORICAL RESULTS Monocytes, absolute 0.9 0.2 - 1.2 K/cumm HISTORICAL RESULTS Eosinophils, abs 0.2 0.0 - 0.5 K/cumm HISTORICAL RESULTS Basophils, abs 0.0 0.0 - 0.2 K/cumm HISTORICAL RESULTS Blood specimen (specimen) 10/20/2013 11:21 PM CDT us Jose Greenberg LAB BLOOD ORDERABLES Final Resu lt HISTORICAL RESULTS * Blood glucose, POC (10/20/2013 7:39 PM CDT) [facility] Glucose, POC, bld 136 70 - 199 mg/dl HISTORICAL RESULTS Blood specimen (specimen) 10/20/2013 7:39 PM CDT us Sherron Mahan MD LAB BLOOD ORDERABLES Fi nal Result Performing Organization Address City/[facility]/ZIP Co de Phone Number HISTORICAL RESULTS * XR Chest 1 View (10/20/2013 7:04 PM CDT) Anatomical Region Laterality Modality Body, Chest N/A Radiographic Tawanna ging 10/20/2013 7:04 PM CDT Narrative 10/21/2013 12:08 PM CDT ELIZABETH POOLE M.D. FINAL REPORT ACC# ??Date Time ??Exam [id number] Oct 20, 2013 19:04:00 25526 Chest 1 view Frontal [id number] Oct 21, 2013 08:11:00 [id number] Chest 1 view Frontal EXAMINATION: ?? Two ??One View Portable Chests IMPRESSION: ?? First exam: The endotracheal tube is approximately 6 centimeters above the ti. A nasogastric tube is present, tip extends at least to stomach. there is patchy bibasilar atelectasis but no pleural effusions There is no pneumothorax.. The heart and mediastinal contours are normal. Second exam no change Requested By: SAHIL TAN Dictated By: ?? ELIZABETH POOLE M.D. ??on Oct 21 2013 12:08P This document has been electronically signed by: ELIZABETH POOLE M.D. on Oct 21 2013 12:08P Procedure Note Provider, Mirna, - 07/28/2016 ELIZABETH POOLE M.D. FINAL REPORT ACC# Date Time Exam [id number] Oct 20, 2013 19:04:00 [id number] Chest 1 view Frontal [id number] Oct 21, 2013 08:11:00 11442 Chest 1 view Frontal EXAMINATION: Two One View Portable Chests IMPRESSION: First exam: The endotracheal tube is approximately 6 centimeters above the ti. A nasogastric tube is present, tip extends at least to stomach. there is patchy bibasilar atelectasis but no pleural effusions There is no pneumothorax.. The heart and mediastinal contours arenormal. Second exam no change Requested By: SAHIL TAN Dictated By: ELIZABETH POOLE M.D. on Oct 21 2013 12:08P This document has been electronically signed by: ELIZABETH POOLE M.D. on Oct 21 2013 12:08P Historical Provider [facility] XR PROCEDURES Final R esult * Blood culture (10/20/2013 4:06 PM CDT) Blood specimen (specimen) (Radial, left) 10/20/2013 4:06 PM CDT 10/20/2013 7:46 PM CDT Impressions HISTORICAL RESULTS - 10/26/2013 2:58 AM CDT Blood cultures are incubated for five days on a continuously monitored blood culture system. ??The first report of a negative culture is issued within 24 hours of receipt of the specimen in the laboratory. ??Positive culture results are reported as soon as they are detected. ??For blood cultures with gram-positive cocci, a rapid molecular test for organism identification may be performed using the [employer]underloop Nanosphere Gram Positive Blood Culture Assay. ??The Nanosphere assay detects microbial DNA in positive blood culture broth via hybridization of target DNA to capture oligonucleotides on a microarray. ??This assay has been cleared by the [place] Food and Drug Administration and its performance characteristics have been verified by the [facility]. Current Interpretive Data was last revised on 2013. Narrative HISTORICAL RESULTS - 10/26/2013 2:58 AM CDT No growth [facility] Provider MD LAB MICROBIOLOGY - GENERA L ORDERABLES Final Result Performing Organization Address [facility] de Phone Number HISTORICAL RESULTS * Aerobic culture and Gram stain (10/20/2013 4:06 PM CDT) Sputum (Unknown) 10/20/2013 4:06 PM CDT 10/20/2013 4:07 PM CDT [facility] Provider MD LAB MICROBIOLOGY - GENERA L ORDERABLES Final Result Performing Organization Address [facility] de Phone Number HISTORICAL RESULTS * Blood culture (10/20/2013 4:06 PM CDT) Blood specimen (specimen) (Forearm, right) 10/20/2013 4:06 PM CDT 10/20/2013 7:46 PM CDT Impressions HISTORICAL RESULTS - 10/26/2013 2:58 AM CDT Blood cultures are incubated for five days on a continuously monitored blood culture system. ??The first report of a negative culture is issued within 24 hours of receipt of the specimen in the laboratory. ??Positive culture results are reported as soon as they are detected. ??For blood cultures with gram-positive cocci, a rapid molecular test for organism identification may be performed using the [employer] Nanosphere Gram Positive Blood Culture Assay. ??The Nanosphere assay detects microbial DNA in positive blood culture broth via hybridization of target DNA to capture oligonucleotides on a microarray. ??This assay has been cleared by the [place] Food and Drug Administration and its performance characteristics have been verified by the [facility]. Current Interpretive Data was last revised on 2013. Narrative HISTORICAL RESULTS - 10/26/2013 2:58 AM CDT No growth Historical Provider MD LAB MICROBIOLOGY - GENERA L ORDERABLES Final Result Performing Organization Address [facility] de Phone Number HISTORICAL RESULTS * Blood glucose, POC (10/20/2013 2:02 PM CDT) Glucose, POC, bld 171 70 - 199 mg/dl HISTORICAL RESULTS Blood specimen (specimen) 10/20/2013 2:02 PM CDT Sherron Mahan MD LAB BLOOD ORDERABLES Fi nal Result HISTORICAL RESULTS * Urine (aerobic) culture (10/20/2013 11:40 AM CDT) Urine (Unknown) 10/20/2013 1 1:40 AM CDT 10/20/2013 12:31 PM CDT Narrative HISTORICAL RESULTS - 10/21/2013 3:39 PM CDT No growth us Historical Provider LAB MICROBIOLOGY - GENERA L ORDERABLES Final Result Performing Organization Address City/[facility] Co de Phone Number HISTORICAL RESULTS * XR Chest 1 View (10/20/2013 9:50 AM CDT) Anatomical Region Laterality Modality Body, Chest N/A Radiographic Tawanna ging 10/20/2013 9:50 AM CDT Narrative 10/20/2013 1:26 PM CDT SANTI ASHER M.D. MARY ARTHUR, FINAL REPORT The radiology attending physician has personally reviewed this study, and has reviewed and/or edited this written report and agrees with it. ACC# ??Date Time ??Exam [id number] Oct 20, 2013 09:50:00 [id number] Chest 1 view Frontal EXAMINATION: ?? Chest 1 view ?? IMPRESSION: ?? Comparison is made to prior chest radiograph dated 10/19/2013. An endotracheal tube projects over the midthoracic trachea, with tip approximately 8 cm above the level of the ti. A nasogastric tube courses beneath the diaphragm and coils within the stomach with tip projecting over the gastric fundus. There is minimal linear with bibasilar atelectasis. The lungs are otherwise clear. No pneumothorax, pulmonary edema, or pleural effusion. Heart size and mediastinal contour are normal. ?? Requested By: ZOILA LUX Dictated By: ?? MARY ARTHUR, ?? on Oct 20 2013 10:40A This document has been electronically signed by: SANTI ASHER M.D. on Oct 20 2013 ??1:26P Procedure Note Provider, MD Mirna - 07/28/2016 SANTI ASHER M.D. MARY ARTHUR, FINAL REPORT The radiology attending physician has personally reviewed this study, and has reviewed and/or edited this written report and agrees with it. ACC# Date Time Exam [id number] Oct 20, 2013 09:50:00 64741 Chest 1 view Frontal EXAMINATION: Chest 1 view IMPRESSION: Comparison is made to prior chest radiograph dated 10/19/2013. An endotracheal tube projects over the midthoracic trachea, with tip approximately 8 cm above the level of the ti. A nasogastric tube courses beneath the diaphragm and coils within the stomach with tip projecting over the gastric fundus. There is minimal linear with bibasilar atelectasis. The lungs are otherwise clear. No pneumothorax, pulmonary edema, or pleural effusion. Heart size and mediastinal contour are normal. Requested By: ZOILA LUX [facility] Dictated By: MARY ARTHUR, on Oct 20 2013 10:40A This document has been electronically signed by: SANTI ASHER M.D. on Oct 20 2013 1:26P Historical Provider IMG XR PROCEDURES Final R esult * XR Interpretation Of Outside Films (10/20/2013 8:37 AM CDT) Anatomical Region Laterality Modality N/A Radiographic Tawanna ging 10/20/2013 8:37 AM CDT Narrative 10/20/2013 3:22 PM CDT YUAN MCKEON M.D. FIDEL GRANT M.D. FINAL REPORT The radiology attending physician has personally reviewed this study, and has reviewed and/or edited this written report and agrees with it. ACC# ??Date Time ??Exam [id number] Oct 20, 2013 08:37:00 [id number] [facility] Neuro Consult EXAMINATION: ?CHANGE CONSULT ON OUTSIDE IMAGES TO OUTSIDE REFERENCE IMAGES IMPRESSION: ?This study was initially nominated as a consult on outside images via [employer]. This nomination was done incorrectly; the study should have been nominated as a reference image. Accordingly, there will be no separate report of this study generated by a [facility] Radiologist. Reference to this exam can be seen on study with accession number [id number], head CT dated 10/20/2013. Requested By: JOSE GREENBERG ??, PHD Dictated By: ?? FIDEL GRANT M.D. ??on Oct 20 2013 ??2:36P This document has been electronically signed by: YUAN MCKEON M.D. on Oct 20 2013 ??3:22P Procedure Note Provider, MD Mirna - 07/28/2016 YUAN MCKEON M.D. FIDEL GRANT M.D. FINAL REPORT The radiology attending physician has personally reviewed this study, and has reviewed and/or edited this written report and agrees with it. ACC# Date Time Exam [id number] Oct 20, 2013 08:37:00 [id number] [facility] Neuro Consult EXAMINATION: CHANGE CONSULT ON OUTSIDE IMAGES TO OUTSIDE REFERENCE IMAGES IMPRESSION: This study was initially nominated as a consult on outside images via [employer]. This nomination was done incorrectly; the study should have been nominated as a reference image. Accordingly, there will be no separate report of this study generated by a [facility] Radiologist. Reference to this exam can be seen on study with accession number [id number], head CT dated 10/20/2013. Requested By: JOSE GREENBERG MD, PHD Dictated By: FIDEL GRANT M.D. on Oct 20 2013 2:36P This document has been electronically signed by: YUAN MCKEON M.D. on Oct 20 2013 3:22P us Historical Provider IMG XR PROCEDURES Final R esult * Blood glucose, POC (10/20/2013 7:38 AM CDT) Glucose, POC, bld 165 70 - 199 mg/dl HISTORICAL RESULTS Blood specimen (specimen) 10/20/2013 7:38 AM CDT us Salah Raza Keyrouz MD LAB BLOOD ORDERABLES Fi nal Result Performing Organization Address [facility] de Phone Number HISTORICAL RESULTS * (ABNORMAL) Serum troponin I (10/20/2013 5:54 AM CDT) Troponin I 0.07(H) 0.00 - 0.03 ng/ml HISTORICAL RESULTS Comment: Interpretive Data Serial determinations are recommended for the diagnosis of myocardial infarction (Third [place] Definition of Myocardial Infarction. ??J Am Mary Cardiol 2012;60:1581-98). Current interpretive data was last revised on 13. Serum 10/20/2013 5:54 AM CDT Result [facility] Jose Greenberg LAB BLOOD ORDERABLES Final Resu lt Performing Organization Address [facility] Phone Number HISTORICAL RESULTS * Blood hemoglobin A1C (10/20/2013 5:54 AM CDT) Hgb A1C 5.5 4.0 - 6.0 % HISTORICAL RESULTS Estimated average glucose 111 mg/dl HISTORICAL RESULTS Comment: The ADA recommends reporting an estimated Average Glucose (eAG) with all Hemoglobin A1c results using the equation derived from a study of 507 normal and diabetic adults. ??Minority populations were underrepresented and children were not included. ??(Diabetes Care 31:3323-2906, 2008). ??The eAG is not equivalent to a fasting glucose. Blood specimen (specimen) 10/20/2013 5:54 AM CDT Jose Greenberg LAB BLOOD ORDERABLES Final Resu lt Performing Organization Address [facility] de Phone Number HISTORICAL RESULTS * CT Head WO Contrast (10/20/2013 5:26 AM CDT) Anatomical Region Laterality Modality Head and Neck N/A Computed Tomogra phy 10/20/2013 5:26 AM CDT Narrative 10/20/2013 11:17 AM CDT YUAN MCKEON M.D. FIDEL GRANT M.D. FINAL REPORT The radiology attending physician has personally reviewed this study, and has reviewed and/or edited this written report and agrees with it. ACC# ??Date Time ??Exam [id number] Oct 20, 2013 05:26:[address] Head or Brain w/o cont EXAMINATION: ?? Noncontrast head CT HISTORY: Right hemiparesis TECHNIQUE: Noncontrast CT of the brain was performed with axial images acquired from skull base to vertex. COMPARISON: Comparison is made to head CT from [facility] 10/19/2013. FINDINGS: Topogram demonstrates no lytic lesions or fractures On today's exam, there is diffuse hypodensity of the entire left MCA region consistent with infarct that coincides with patient's symptoms of right hemiparesis. The prior exam shows hyperdense left MCA without left MCA distribution hypodensity consistent with acute infarct at that time. Overall, findings are consistent with interval evolution of ischemic left MCA distribution infarction involving the frontal, temporal and parietal lobes and basal ganglia. There is no focal areas of hyperdensity within the cranium to suggest hemorrhage. There is mild effacement of the lateral sulci in the area of infarction on today's study without significant midline shift or ventricular effacement. The visualized portions of the orbits, and paranasal sinuses, and mastoids are normal. No fractures are identified. IMPRESSION: ?? New left MCA distribution hypodensity consistent with evolution of ischemic infarct compared to outside hospital exam from yesterday. Requested By: JOSE GREENBERG MD, PHD Dictated By: ?? FIDEL GRANT M.D. ??on Oct 20 2013 11:13A This document has been electronically signed by: YUAN MCKEON M.D. on Oct 20 2013 11:17A Procedure Note Provider, MD Mirna - 07/28/2016 YUAN MCKEON M.D. FIDEL GRANT M.D. FINAL REPORT The radiology attending physician has personally reviewed this study, and has reviewed and/or edited this written report and agrees with it. ACC# Date Time Exam [id number] Oct 20, 2013 05:26:[address] Head or Brain w/o cont EXAMINATION: Noncontrast head CT HISTORY: Right hemiparesis TECHNIQUE: Noncontrast CT of the brain was performed with axial images acquired from skull base to vertex. COMPARISON: Comparison is made to head CT from [facility] 10/19/2013. FINDINGS: Topogram demonstrates no lytic lesions or fractures On today's exam, there is diffuse hypodensity of the entire left MCA region consistent with infarct that coincides with patient's symptoms of right hemiparesis. The prior exam shows hyperdense left MCA without left MCA distribution hypodensity consistent with acute infarct at that time. Overall, findings are consistent with interval evolution of ischemic left MCA distribution infarction involving the frontal, temporal and parietal lobes and basal ganglia. There is no focal areas of hyperdensity within the cranium to suggest hemorrhage. There is mild effacement of the lateral sulci in the area of infarction on today's study without significant midline shift or ventricular effacement. The visualized portions of the orbits, and paranasal sinuses, and mastoids are normal. No fractures are identified. IMPRESSION: New left MCA distribution hypodensity consistent with evolution of ischemic infarct compared to outside hospital exam from yesterday. Requested By: JOSE GREENBERG MD, PHD Dictated By: FIDEL GRANT M.D. on Oct 20 2013 11:13A This document has been electronically signed by: YUAN MCKEON M.D. on Oct 20 2013 11:17A us Historical Provider IMG CT PROCEDURES Final R esult * Blood glucose, POC (10/20/2013 2:28 AM CDT) Glucose, POC, bld 159 70 - 199 mg/dl HISTORICAL RESULTS Blood specimen (specimen) 10/20/2013 2:28 AM CDT us Sherron Mahan MD LAB BLOOD ORDERABLES Fi nal Result HISTORICAL RESULTS * All Microbiology Report Section (10/20/2013 12:00 AM CDT) 10/20/2013 Narrative HISTORICAL RESULTS - 11/13/2013 3:59 AM CDT ? [facility] ?[address] [facility] [address] ?[place], [place] [address] ? Patient Name: ??GI, CURLY ? Med Rec Number: [id number] ? Fin Number: ?[id number] ? Date: ?1955 ? Sex/Age: ? Male 58 years ? Admit Date: ?10/19/2013 ? Discharge Date: 11/12/2013 ? Doctor: ?Sherron Mahan ? Facility: ?[facility] ? Location: ?0114 [id number] 02 ?* Abnormal ??A Alert ??f Footnote ??^ Corrected ??L Low ??H High ?i Interp Data ??@ Ref Lab ? Chart Type:Cumulative ?* * * * MICROBIOLOGY - URINE * * * * ?PROCEDURE: Urine Culture ? SOURCE: Urine ? COLLECTED: 10/20/13 ??1140 ?BODY SITE: ? STARTED: 10/20/13 ??1231 ? FREE TEXT SOURCE: ? FINAL REPORT ? REPORTED: 10/21/13 1539 ? No growth us Historical Provider MD LAB MICROBIOLOGY - GENERA L ORDERABLES Final Result HISTORICAL RESULTS * All Microbiology Report Section (10/20/2013 12:00 AM CDT) 10/20/2013 Narrative HISTORICAL RESULTS - 11/13/2013 3:59 AM CDT ? [facility] ?[address] [facility] ?[place] [address] ? Patient Name: ??CURLY ANGELO ? Med Rec Number: [id number] ? Fin Number: ?[id number] ? Date: ?1955 ? Sex/Age: ? Male 58 years ? Admit Date: ?10/19/2013 ? Discharge Date: 11/12/2013 ? Doctor: ?Keyrouz , Salah G ? Facility: ?[facility] ? Location: ?0114 [address] 02 ?* Abnormal ??A Alert ??f Footnote ??^ Corrected ??L Low ??H High ?i Interp Data ??@ Ref Lab ? Chart Type:Cumulative ?* * * * MICROBIOLOGY - BLOOD/STERILE FLUID * * * * ?PROCEDURE: Aerobic, Anaerobic and Mycology Culture, Blood ? SOURCE: Blood ? COLLECTED: 10/20/13 ??1606 ?BODY SITE: Radial, left ? STARTED: 10/20/13 ??1946 ? FREE TEXT SOURCE: ? FINAL REPORT ? REPORTED: 10/26/13 0257 ? No growth ?* * * ??Interpretive Results ??* * * ? (1)Blood cultures are incubated for five days on a continuously ? monitored blood culture system. ??The first report of a negative ? culture is issued within 24 hours of receipt of the specimen in ? the laboratory. ??Positive culture results are reported as soon ? as they are detected. ??For blood cultures with gram-positive ? cocci, a rapid molecular test for organism identification may be ? performed using the [employer] Nanosphere Gram Positive Blood ? Culture Assay. ??The Nanosphere assay detects microbial DNA in ? positive blood culture broth via hybridization of target DNA to ? capture oligonucleotides on a microarray. ??This assay has been ? cleared by the [place] Food and Drug Administration and ? its performance characteristics have been verified by the ? [facility].Current ? Interpretive Data was last revised on 2013. ? us Historical Provider LAB MICROBIOLOGY - GENERA L ORDERABLES Final Result HISTORICAL RESULTS * All Microbiology Report Section (10/20/2013 12:00 AM CDT) 10/20/2013 Narrative HISTORICAL RESULTS - 11/13/2013 3:59 AM CDT ? [facility] ?[address] [facility] ?[place], [facility] [address] ? Patient Name: ??GI, CURLY ? Med Rec Number: [id number] ? Fin Number: ?[id number] ? Date: ?1955 ? Sex/Age: ? Male 58 years ? Admit Date: ?10/19/2013 ? Discharge Date: 11/12/2013 ? Doctor: ?Sherron Mahan ? Facility: ?[facility] ? Location: ?0114 [address] 02 ?* Abnormal ??A Alert ??f Footnote ??^ Corrected ??L Low ??H High ?i Interp Data ??@ Ref Lab ? Chart Type:Cumulative ?* * * * MICROBIOLOGY - BLOOD/STERILE FLUID * * * * ?PROCEDURE: Aerobic, Anaerobic and Mycology Culture, Blood ? SOURCE: Blood ? COLLECTED: 10/20/13 ??1606 ?BODY SITE: Forearm, right ? STARTED: 10/20/13 ??1946 ? FREE TEXT SOURCE: ? FINAL REPORT ? REPORTED: 10/26/13 0257 ? No growth ?* * * ??Interpretive Results ??* * * ? (1)Blood cultures are incubated for five days on a continuously ? monitored blood culture system. ??The first report of a negative ? culture is issued within 24 hours of receipt of the specimen in ? the laboratory. ??Positive culture results are reported as soon ? as they are detected. ??For blood cultures with gram-positive ? cocci, a rapid molecular test for organism identification may be ? performed using the [employer] Nanosphere Gram Positive Blood ? Culture Assay. ??The Nanosphere assay detects microbial DNA in ? positive blood culture broth via hybridization of target DNA to ? capture oligonucleotides on a microarray. ??This assay has been ? cleared by the [place] Food and Drug Administration and ? its performance characteristics have been verified by the ? [facility].Current ? Interpretive Data was last revised on 2013. ? us Historical Provider MD LAB MICROBIOLOGY - GENERA L ORDERABLES Final Result HISTORICAL RESULTS * All Microbiology Report Section (10/20/2013 12:00 AM CDT) 10/20/2013 Narrative HISTORICAL RESULTS - 11/13/2013 3:59 AM CDT ? [facility] ?[facility] [place] ?[place] [address] ? Patient Name: ??DORY ANGELORY ? Med Rec Number: [id number] ? Fin Number: ?[id number] ? Date: ?1955 ? Sex/Age: ? Male 58 years ? Admit Date: ?10/19/2013 ? Discharge Date: 11/12/2013 ? Doctor: ?Sherron Mahan ? Facility: ?[facility] ? Location: ?[id number] ?* Abnormal ??A Alert ??f Footnote ??^ Corrected ??L Low ??H High ?i Interp Data ??@ Ref Lab ? Chart Type:Cumulative ?* * * * MICROBIOLOGY - RESPIRATORY * * * * ?PROCEDURE: Aerobic Culture, Respiratory and Gram Stain ? SOURCE: Tracheal Aspirate ? COLLECTED: 10/20/ ??1606 ?BODY SITE: ? STARTED: 10/20/13 ??1931 ? FREE TEXT SOURCE: ? DIRECT SPECIMEN EXAMINATION ? Stain ? REPORTED: 10/20/132056 ? No squamous epithelial cells seen. Abundant polymorphonuclear ? leukocytes seen. Moderate Mixed bacterial elia seen on gram ? stain. ? FINAL REPORT ? REPORTED: 10/24/13 1501 ? Growth indicates upper respiratory elia contamination. Includes ? the following: Less than 100,000 colonies/ml of Beta Hemolytic ? Streptococcus, Group F Routine susceptibility testing not ? performed. Historical Provider LAB MICROBIOLOGY - GENERA L ORDERABLES Final Result HISTORICAL RESULTS * VASCULAR LABORATORY REPORT (10/20/2013) Anatomical Region Laterality Modality Ultrasound Narrative 10/20/2013 Ordered by an unspecified provider. Historical Provider CV VASCULAR PROCEDURES Fi nal Result * XR Chest 1 View (10/19/2013 9:56 PM CDT) Anatomical Region Laterality Modality Body, Chest N/A Radiographic Tawanna ging 10/19/2013 9:56 PM CDT Narrative 10/20/2013 11:06 AM CDT SANTI ASHER M.D. SANTI WANG M.D. FINAL REPORT The radiology attending physician has personally reviewed this study, and has reviewed and/or edited this written report and agrees with it. ACC# ??Date Time ??Exam [id number] Oct 19, 2013 21:56:00 [id number] Chest 1 view Frontal EXAMINATION: ?? Chest one view ?? IMPRESSION: Portable chest radiograph is interpreted without comparison. An endotracheal tube is present within the midthoracic trachea. A nasogastric tube is present, the tip collimated from view. Minimal left basilar atelectasis is noted. No pneumothorax or pleural effusion. Cardiac size and mediastinal contours are normal. ?? Requested By: JOSE GREENBERG MD, PHD Dictated By: ?? SANTI WANG M.D. ??on Oct 20 2013 ??9:58A This document has been electronically signed by: SANTI ASHER M.D. on Oct 20 2013 11:06A Procedure Note Provider, MD Mirna - 07/28/2016 SANTI ASHER M.D. SANTI WANG M.D. FINAL REPORT The radiology attending physician has personally reviewed this study, and has reviewed and/or edited this written report and agrees with it. ACC# Date Time Exam [id number] Oct 19, 2013 21:56:00 [id number] Chest 1 view Frontal EXAMINATION: Chest one view IMPRESSION: Portable chest radiograph is interpreted without comparison. An endotracheal tube is present within the midthoracic trachea. A nasogastric tube is present, the tip collimated from view. Minimal left basilar atelectasis is noted. No pneumothorax or pleural effusion. Cardiac size and mediastinal contours are normal. Requested By: JOSE GREENBERG MD, PHD Dictated By: SANTI WANG M.D. on Oct 20 2013 9:58A This document has been electronically signed by: SANTI ASHER M.D. on Oct 20 2013 11:06A us Historical Provider IMG XR PROCEDURES Final R esult * ABDOMINAL RADIOGRAPHY, FRONTAL (AP) (10/19/2013 9:56 PM CDT) Anatomical Region Laterality Modality N/A Radiographic Tawanna ging 10/19/2013 9:56 PM CDT Narrative 10/20/2013 12:37 PM CDT PAT JENKINS M.D. LAN ROBB M.D. FINAL REPORT The radiology attending physician has personally reviewed this study, and has reviewed and/or edited this written report and agrees with it. ACC# ??Date Time ??Exam [id number] Oct 19, 2013 21:56:00 [id number] Abdomen single view AP EXAMINATION: ?Abdomen single view AP HISTORY: ??Check tube placement FINDINGS: ?? Portable supine view of the abdomen excluding the lower abdomen and pelvis is submitted for interpretation without prior comparison study. A nasogastric tube terminates at the gastroesophageal junction with the sidehole in the distal esophagus at the level of T10. The visualized bowel gas pattern is normal. Spine hardware is partially visualized at the lower margin of the image. IMPRESSION: ?? A nasogastric tube terminates at the gastroesophageal junction with the sidehole in the distal esophagus at the level of T10 The findings were communicated with nurse Brandt on 10/20/2013 at 7:58 a.m. by telephone. Requested By: JOSE GREENBERG MD, PHD Dictated By: ?? LAN ROBB M.D. ??on Oct 20 2013 ??8:56A This document has been electronically signed by: PAT JENKINS M.D. on Oct 20 2013 12:37P Procedure Note Provider, MD Mirna - 07/28/2016 PAT JENKINS M.D. LAN ROBB M.D. FINAL REPORT The radiology attending physician has personally reviewed this study, and has reviewed and/or edited this written report and agrees with it. ACC# Date Time Exam [id number] Oct 19, 2013 21:56:00 [id number] Abdomen single view AP EXAMINATION: Abdomen single view AP HISTORY: Check tube placement FINDINGS: Portable supine view of the abdomen excluding the lower abdomen and pelvis is submitted for interpretation without prior comparison study. A nasogastric tube terminates at the gastroesophageal junction with the sidehole in the distal esophagus at the level of T10. The visualized bowel gas pattern is normal. Spine hardware is partially visualized at the lower margin of the image. IMPRESSION: A nasogastric tube terminates at the gastroesophageal junction with the sidehole in the distal esophagus at the level of T10 The findings were communicated with nurse Karly on 10/20/2013 at 7:58 a.m. by telephone. Requested By: JOSE GREENBERG MD, PHD Dictated By: LAN ROBB M.D. on Oct 20 2013 8:56A This document has been electronically signed by: PAT JENKINS M.D. on Oct 20 2013 12:37P Historical Provider IMG XR PROCEDURES Final R esult * Blood check sample (10/19/2013 9:00 PM CDT) ABO, Rho(D) O Positive HISTORI SHALA RESULTS Blood specimen (specimen) 10/19/2013 9:00 PM CDT Sherron Mahan MD LAB BLOOD ORDERABLES Fi nal Result HISTORICAL RESULTS * (ABNORMAL) Urinalysis (10/19/2013 8:42 PM CDT) Color, ur Yellow Yellow HISTORICAL RESULTS Clarity, ur Cloudy(A) Clear HISTORIC AL RESULTS Specific gravity, ur 1.018 1.003 - 1.030 HISTORICAL RESULTS pH, ur 6.0 5.0 - 8.0 HISTORICAL RESULTS Protein, ur Negative Trace HISTORIC AL RESULTS Glucose, ur Negative Negative HISTORIC AL RESULTS Ketones, ur Negative Negative HISTORIC AL RESULTS Bilirubin, ur Negative Negative HISTOR ICAL RESULTS U Blood 2+(A) Negative HISTORICAL RESULTS Urobilinogen, quant, ur 4.0(H) 0.0 - 2.0 mg/dl HISTORICAL RESULTS Nitrites, ur Negative Negative HISTORI SHALA RESULTS Leukocyte esterase, ur 2+(A) Negative HISTORICAL RESULTS Urine 10/19/2013 8:42 PM CDT Jose Greenberg LAB BLOOD ORDERABLES Final Resu lt Performing Organization Address City/[facility] Co de Phone Number HISTORICAL RESULTS * (ABNORMAL) Urine microscopy (10/19/2013 8:42 PM CDT) RBC, ur 35(H) 0 - 3 /hpf HISTORICA L RESULTS WBC, ur 13(H) 0 - 5 /hpf HISTORICA L RESULTS Bacteria, ur Negative Trace HISTORI SHALA RESULTS Epithelial cells, renal, ur 0 0 - 0 /hpf HISTORICAL RESULTS Epithelial cells, squamous, ur 9 /lpf HISTORICAL RESULTS Mucus, ur Small /hpf HISTORICAL RESULTS Hyaline casts 1(H) 0 - 0 /lpf HISTO RICAL RESULTS Urine 10/19/2013 8:42 PM CDT Jose Greenberg LAB BLOOD ORDERABLES Final Resu lt HISTORICAL RESULTS * Blood ABO, Rh, indirect ab screen (10/19/2013 8:42 PM CDT) ABO, Rho(D) O Positive HISTORI SHALA RESULTS Madhavi, indirect Negative HISTORICAL RESULTS Blood specimen (specimen) 10/19/2013 8:42 PM CDT Jose Greenberg LAB BLOOD ORDERABLES Final Resu lt Performing Organization Address [facility] de Phone Number HISTORICAL RESULTS * (ABNORMAL) Blood gas, arterial (10/19/2013 8:42 PM CDT) Ph, art 7.43 7.35 - 7.45 HISTORICAL RESULTS PCO2 39 35 - 45 mm Hg HISTORICAL RESULTS PO2, art 256(H) 80 - 105 mm Hg HISTORICAL RESULTS CO2, calc, art 26 21 - 30 mmol/L HISTORICAL RESULTS A-a gradient Not Applicable mm Hg HI STORICAL RESULTS O2, inspired, %, art 40 % HISTORICAL RESULTS Oxygen (O2), inspired fraction (FiO2) Not Applicable liters HISTORICAL RESULTS Arterial blood 10/19/2013 8: 42 PM CDT Jose Greenberg LAB BLOOD ORDERABLES Final Resu lt Performing Organization Address [facility] de Phone Number HISTORICAL RESULTS * (ABNORMAL) Plasma comprehensive metabolic panel (10/19/2013 8:42 PM CDT) Pathologist [facility] Sodium 143 135 - 145 mmol/L HISTORICAL RESULTS K, pl 3.8 3.3 - 4.9 mmol/L HISTORICAL RESULTS Chloride 106 97 - 110 mmol/L HISTORICAL RESULTS CO2 25 22 - 32 mmol/L HISTORICAL RESULTS A. gap 12 0 - 16 mmol/L HISTORICAL RESULTS Glucose 108 70 - 199 mg/dl HISTORICAL RESULTS BUN 15 8 - 25 mg/dl HISTORICAL RESULTS Creatinine 1.26 0.70 - 1.30 mg/dl HISTORICAL RESULTS Calcium 8.8 8.6 - 10.3 mg/dl HISTORICAL RESULTS Protein, pl 7.5 6.5 - 8.5 g/dl HISTORICAL RESULTS Alb 3.9 3.6 - 5.0 g/dl HISTORICAL RESULTS Bilirubin 0.5 0.3 - 1.1 mg/dl HISTORICAL RESULTS Alk phos 29(L) 38 - 126 Units/L HISTORICAL RESULTS AST 25 11 - 47 Units/L HISTORICAL RESULTS ALT 21 7 - 53 Units/L HISTORICAL RESULTS Plasma 10/19/2013 8:42 PM CDT Jose Greenberg LAB BLOOD ORDERABLES Final Resu lt HISTORICAL RESULTS * (ABNORMAL) Serum lipid panel (10/19/2013 8:42 PM CDT) Cholesterol 106 0 - 200 mg/dl HISTORICAL RESULTS Comment: Interpretive Data Desirable: ?<200 mg/dL Borderline high: ??200-239 mg/dL High: ? >240 mg/dL Literature Reference: National Cholesterol Education Program (NCEP) Expert Panel on Detection, Evaluation, and Treatment of High Blood Cholesterol in Adults (Adult Treatment Panel III). ??Circulation 2004; 110:227. Current interpretive data was last revised on 2005. Triglycerides 142 0 - 150 mg/dl HISTORICAL RESULTS Comment: Interpretive Data Desirable: ? < 150 mg/dL Borderline High: ? 150 - 199 mg/dL High: ?> 200 mg/dL Literature Reference: See Cholesterol Current interpretive data was last revised on 06. HDL 20(L) 40 - 199 mg/dl HISTORICAL RESULTS Comment: Interpretive Data Less than 40 mg/dL - low; A major risk factor for heart disease. Greater than or equal to 60 mg/dL - High; ??considered protective of heart disease. Literature Reference: See Cholesterol Current interpretive data was last revised on 2007. LDL 58 0 - 129 mg/dl HISTORICAL RESULTS Comment: Interpretive Data Optimal: ? < 100 mg/dL Near Optimal: ?100 - 129 mg/dL Borderline High: ?? 130 - 159 mg/dL High: ?> 160 mg/dL Literature Reference: See Cholesterol Current interpretive data was last revised on 06. Non-HDL cholesterol, calculated 86 mg/dl HISTORICAL RESULTS Comment: Interpretive Data When triglycerides are >200 mg/dL, non-HDL C is a secondary target of therapy, with a goal 30 mg/dL higher than the identified LDL-C goal. Reference: ??See Cholesterol Reference. Current interpretive data was last revised 2011. Serum 10/19/2013 8:42 PM CDT Jose Greenberg LAB BLOOD ORDERABLES Final Resu lt Performing Organization Address [facility] de Phone Number HISTORICAL RESULTS * Plasma partial thromboplastin time (PTT) (10/19/2013 8:42 PM CDT) APTT 33.3 25.0 - 37.0 seconds HISTORICAL RESULTS Comment: Interpretive Data Therapeutic heparin range:60.0 - 94.0 sec based on correlation with therapeutic heparin activity range of 0.3 -0.7 Units/mL. Current interpretive data was last revised on 2011. Plasma 10/19/2013 8:42 PM CDT Result [facility] Jose Greenberg LAB BLOOD ORDERABLES Final Resu lt Performing Organization Address [facility] de Phone Number HISTORICAL RESULTS * (ABNORMAL) Serum troponin I (10/19/2013 8:42 PM CDT) Troponin I 0.22(C) 0.00 - 0.03 ng/ml HISTORICAL RESULTS Comment: Critical result called to Kelvin solis) on 10/19/2013 21:23:16 CDT by neil. Interpretive Data Serial determinations are recommended for the diagnosis of myocardial infarction (Third [place] Definition of Myocardial Infarction. ??J Am Mary Cardiol 2012;60:1581-98). Current interpretive data was last revised on 13. Serum 10/19/2013 8:42 PM CDT Jose Greenberg LAB BLOOD ORDERABLES Final Resu lt Performing Organization Address [facility] de Phone Number HISTORICAL RESULTS * Plasma phosphorus (10/19/2013 8:42 PM CDT) Phosphorus, pl 4.1 2.3 - 4.3 mg/dl HISTORICAL RESULTS Plasma 10/19/2013 8:42 PM CDT Jose Greenberg LAB BLOOD ORDERABLES Final Resu Performing Organization Address [facility] de Phone Number HISTORICAL RESULTS * (ABNORMAL) Plasma prothrombin time (PT) (10/19/2013 8:42 PM CDT) Prothrombin time (PT) 13.3(H) 9.0 - 12.0 seconds HISTORICAL RESULTS INR 1.25(H) 0.90 - 1.20 HISTORIC AL RESULTS Comment: Interpretive Data Inpatient therapeutic ranges* Atrial fibrillation ?2.0-3.0 INR Venous thrombo-embolism ?2.0-3.0 INR Bioprosthetic heart valve ?* Mechanical heart valve, bileaflet or tilting disk,aortic position ? 2.0-3.0 INR All other,or bileaflet or tilting disk, in mitral position ? 2.5-3.5 INR *See the pharmacy resource directory (PHRED) for an updated copy of the Tool Book at [email or web address] Current Interpretive Data was last revised 2011. Plasma 10/19/2013 8:42 PM CDT Jose Greenberg LAB BLOOD ORDERABLES Final Resu Performing Organization Address [facility] de Phone Number HISTORICAL RESULTS * Serum magnesium (10/19/2013 8:42 PM CDT) Magnesium 1.5 1.4 - 2.5 mg/dl HISTORICAL RESULTS Serum 10/19/2013 8:42 PM CDT Jose Greenberg LAB BLOOD ORDERABLES Final Resu lt Performing Organization Address [facility] de Phone Number HISTORICAL RESULTS * (ABNORMAL) Blood cell count (CBC) (10/19/2013 8:42 PM CDT) WBC 14.3(H) 3.8 - 9.8 K/cumm HISTORICAL RESULTS RBC 3.51(L) 4.50 - 5.70 M/cumm HISTORICAL RESULTS Hgb 12.0(L) 13.8 - 17.2 g/dl HISTORICAL RESULTS Hct 34.9(L) 40.7 - 50.3 % HISTORICAL RESULTS MCV 99.3(H) 80.0 - 97.6 fl HISTORICAL RESULTS MCH 34.0(H) 26.7 - 33.7 pg HISTORICAL RESULTS MCHC 34.3 32.7 - 35.5 g/dl HISTORICAL RESULTS Rdw 12.9 11.8 - 14.6 % HISTORICAL RESULTS Platelets 364 140 - 440 K/cumm HISTORICAL RESULTS MPV 7.5 6.8 - 10.4 fl HISTORICAL RESULTS Neutrophils 82.0(H) 38.7 - 74.5 % HISTORICAL RESULTS Lymphocytes 10.8(L) 20.0 - 54.3 % HISTORICAL RESULTS Monos 6.3 4.3 - 13.5 % HISTORICAL RESULTS Eosinophils 0.7 0.0 - 6.0 % HISTORICAL RESULTS Basophils 0.2 0.0 - 3.0 % HISTORICAL RESULTS Neutrophils, abs 11.7(H) 1.8 - 6.6 K/cumm HISTORICAL RESULTS Lymphocytes, abs 1.5 1.2 - 3.3 K/cumm HISTORICAL RESULTS Monocytes, absolute 0.9 0.2 - 1.2 K/cumm HISTORICAL RESULTS Eosinophils, abs 0.1 0.0 - 0.5 K/cumm HISTORICAL RESULTS Basophils, abs 0.0 0.0 - 0.2 K/cumm HISTORICAL RESULTS Blood specimen (specimen) 10/19/2013 8:42 PM CDT us Jose Greenberg LAB BLOOD ORDERABLES Final Resu lt HISTORICAL RESULTS * Blood glucose, POC (10/19/2013 8:33 PM CDT) Glucose, POC, bld 124 70 - 199 mg/dl HISTORICAL RESULTS Blood specimen (specimen) 10/19/2013 8:33 PM CDT Sherron Mahan MD LAB BLOOD ORDERABLES Fi nal Result HISTORICAL RESULTS * ELECTROCARDIOGRAPHY (ECG) (10/19/2013) Narrative 10/19/2013 Ordered by an unspecified provider. Historical Provider ECG ORDERABLES Final Res ult * ELECTROCARDIOGRAPHY (ECG) (10/19/2013) Narrative 10/19/2013 Ordered by an unspecified provider. 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 Pneumonia due to infectious organism Compression of brain (CMS/HCC) (HCC) Compression of brain Acute respiratory failure (HCC) Acute respiratory failure Convulsions (HCC) Other convulsions Dysphagia Encephalopathy Unspecified encephalopathy Cerebral edema (CMS/HCC) (HCC) Cerebral edema Hemiplegia (CMS/HCC) (HCC) Unspecified hemiplegia affecting unspecified side Urinary tract infection Urinary tract infection, site not specified Essential hypertension Unspecified essential hypertension Aphasia Tobacco use disorder Facial weakness Other chronic pain Leukocytosis Leukocytosis, unspecified Candidiasis of skin and nails Dermatitis due to drugs and medicines taken internally Anemia Unspecified anemia Other specified cardiac dysrhythmias Other and unspecified hyperlipidemia Restless legs syndrome Restless legs syndrome (RLS) Other antihypertensive agents causing adverse effect in therapeutic use Saluretics causing adverse effect in therapeutic use documented in this encounter
--- OUTSIDE RECORDS SUMMARY | 2024-04-03 17:36 | XMS_ITS | Encounter Summary ---
Author Organization [facility] Healthcare Address [address] [place] [address] Care Team Providers Care [employer] Protection Maintainer Name Role Phone Unavailable Primary Care Provider Unavailabl e Encounter Details Date Type Department Care Team (Latest Contact Info) Description 10/19/2013 2:41 PM CDT - 10/19/2013 7:44 PM CDT Hospital Encounter [facility] Dillon Kang MD [address] [facility] [place] [address] Altered mental status; Convulsions (HCC); Abnormal electrocardiogram; Essential hypertension; Other emphysema (HCC); Encounter for long-term (current) use of other medications Social History Tobacco Use Types Packs/Day Years Used Date Smoking Tobacco: Never Assessed Sex and Gender Information Value Date Recorded Sex Assigned at Not on file 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 Gender Identity Not on file Sexual Orientation Not on file documented as of this encounter Last Filed Vital Signs Vital Sign Reading Time Taken Comments Blood Pressure 149/50 10/19/2013 2:41 PM CDT Pulse 66 10/19/2013 2:41 PM CDT Temperature 38.2 ??C (100.7 ??F) 10/19/2013 2:41 PM C DT Respiratory Rate - - Oxygen Saturation 95% 10/19/2013 2:41 PM CDT Inhaled Oxygen Concentration - - Weight 96.2 kg (212 lb) 10/19/2013 2:41 PM CDT Height 175.3 cm (5' 9 ) 10/19/2013 2:41 PM CDT Body Mass Index 31.31 10/19/2013 2:41 PM CDT documented in this encounter Plan of Treatment Not on file documented as of this encounter Procedures Procedure Name Priority Date/Time Associated Diagnosis Comments BLOOD GAS W/LYTES & LACTATE Routine 10/19/2013 4:05 PM CDT INFECTION PREVENTION MRSA ONLY (STAPHYLOCOCCUS AUREUS) PCR Routine 10/19/2013 3:55 PM CDT MICROBIOLOGY SPECIMEN REPORT (CONVERTED) Routine 10/19/2013 3:41 PM CDT BLOOD GAS W/LYTES & LACTATE Routine 10/19/2013 3:10 PM CDT UA WITH CULTURE REFLEX Routine 4 3:05 PM CDT DRUGS OF ABUSE SCREEN, URINE WITHOUT CONFIRMATION Routine 10/19/2013 3:05 PM CDT MICROBIOLOGY SPECIMEN REPORT (CONVERTED) Routine 10/19/2013 3:00 PM CDT TNI WITH LIPID PANEL Routine 10/19/2013 3:00 PM CDT CBC WITH AUTO DIFFERENTIAL Routine 10/19/2013 3:00 PM CDT APTT Routine 10/19/2013 3:00 PM CDT PROTIME-INR Routine 10/19/2013 3:00 PM CDT AMMONIA Routine 10/19/2013 3:00 PM CDT ETHANOL Routine 10/19/2013 3:00 PM CDT COMPREHENSIVE METABOLIC PANEL Routine 10/19/2013 3:00 PM CDT XR CHEST 1 VIEW Routine 10/19/2013 12:[address] HEAD WO CONTRAST Routine 10/19/2013 1 2:00 AM CDT documented in this encounter Results * (ABNORMAL) BLOOD GAS w/LYTES & LACTATE (10/19/2013 4:05 PM CDT) Specimen Type ARTERIAL Puncture Site RR Patient Temperature 37 C 10/19 4:17 PM [facility] HISTORICAL RESULTS pH 7.442 7.350 - 7.450 pCO2 36.2 34.0 - 45.0 mmHg pO2 511.0(H) 84.0 - 92.0 mmHg HCO3 24.3 22.0 - 26.0 mmol/L Total CO2 25.4(L) 26.0 - 28.0 mmol/L Base Excess 0.9 -2.0 - 2.0 mmol/L Hemoglobin 12.4(L) 13.5 - 18.0 g/dL O2 Saturation 98.1 >=95.0 % ABG Carboxyhemoglobin 1.3 <=3.0 % 4:17 PM [facility] HISTORICAL RESULTS ABG Methemoglobin 1.0 0.4 - 1.5 % ABG O2 Content 18.3 17.6 - 24.3 Vol % Na+ (BLOOD GAS) 139.0 135.0 - 145.0 mmol/L K+ (BLOOD GAS) 3.4(L) 3.5 - 5.0 mmol/L CA++ (ionized) BLOOD GAS 1.14 1.07 - 1.31 mmol/L GLUCOSE (BLOOD GAS) 120.0(H) 70.0 - 110.0 mg/dL Lactate (BLOOD GAS) 1.3(H) 0.4 - 0.8 mEq/L A-a O2 Difference 142.8(H) <=10.0 014 4:17 PM [facility] HISTORICAL RESULTS a/A Ratio 0.8 >=0.8 O2 Delivery Device [id number] 2013 4:17 PM [facility] HISTORICAL RESULTS FiO2 100.0 % Tidal Volume 500.0 Vent Mode AC Mechanical Rate 12 4 4:17 PM [facility] HISTORICAL RESULTS PEEP 5 BG Specimen Comment ER-4 10/19 4:17 PM [facility] HISTORICAL RESULTS Drawer Maker ID [email or web address] 10/19/2013 4:05 PM CDT 10/19/2013 4:14 PM CDT us Dillon Flores MD LAB BLOOD ORDERABLES Final Re sult [facility] HISTORICAL RESULTS * MRSA PCR, surveillance (10/19/2013 3:55 PM CDT) MRSA Surveill Initial NEGATIVE FOR MRSA NEGATIVE Comment:MRSA target DNA sequ ences are not detected. 10/19/2013 3:55 PM CDT 10/19/2013 4:16 PM CDT Narrative [facility] HISTORICAL RESULTS - 10/19/2013 5:26 PM CDT Collected By ME ?? 069 us Dillon Flores MD LAB MICROBIOLOGY - GENERAL OR DERABLES Final Result Performing Organization Address [facility] Co de Phone Number [facility] HISTORICAL RESULTS * Microbiology Specimen Report (Converted) (10/19/2013 3:41 PM CDT) 10/19/2013 3:41 PM CDT 10/19/2013 3:59 PM CDT Narrative [facility] HISTORICAL RESULTS - 10/19/2013 3:41 PM CDT Microbiology Specimen Report (Converted) SPECIMEN [id number] ?? COLLECTED: 2013-10-19 15:41:00 [id number] ?? REQ#: [id number] REQUESTING DR: Dillon Flores MD ?? SOURCE: BLOOD ?? SP DESC: --- PROCEDURE --- ?--- RESULT --- ?? CULTURE BLOOD ADULT (SET OF 2) ??(Final) ??- ??Performed at [facility] ?* NO GROWTH DAY 5 - [facility] ? [address] [place] [address] ? [place] [address] ? Tate Novak MD Procedure Note 06/20/2018 Microbiology Specimen Report (Converted) SPECIMEN [id number] COLLECTED: 2013-10-19 15:41:00 [id number] REQ#:[id number] RE[address]: Dillon Flores MD SOURCE: BLOOD SP DESC: --- PROCEDURE --- --- RESULT --- CULTURE BLOOD ADULT (SET OF 2) (Final) - Performed at [facility] * NO GROWTH DAY 5 - [address] [address] Tate Novak MD us Dillon Flores MD LAB BLOOD ORDERABLES Final Re sult Performing Organization Address [facility] Co de Phone Number [facility] HISTORICAL RESULTS * (ABNORMAL) BLOOD GAS w/LYTES & LACTATE (10/19/2013 3:10 PM [facility]) Specimen Type ARTERIAL Puncture Site RR Patient Temperature 37 C 10/19 3:25 PM [facility] HISTORICAL RESULTS pH 7.471(H) 7.350 - 7.450 pCO2 33.6(L) 34.0 - 45.0 mmHg pO2 417.0(H) 84.0 - 92.0 mmHg HCO3 24.2 22.0 - 26.0 mmol/L Total CO2 25.3(L) 26.0 - 28.0 mmol/L Base Excess 1.5 -2.0 - 2.0 mmol/L Hemoglobin 12.9(L) 13.5 - 18.0 g/dL O2 Saturation 98.0 >=95.0 % ABG Carboxyhemoglobin 1.7 <=3.0 % 3:25 PM [facility] HISTORICAL RESULTS ABG Methemoglobin 0.7 0.4 - 1.5 % ABG O2 Content 18.8 17.6 - 24.3 Vol % Na+ (BLOOD GAS) 137.0 135.0 - 145.0 mmol/L K+ (BLOOD GAS) 3.6 3.5 - 5.0 mmol/L CA++ (ionized) BLOOD GAS 1.17 1.07 - 1.31 mmol/L GLUCOSE (BLOOD GAS) 106.0 70.0 - 110.0 mg/dL Lactate (BLOOD GAS) 2.0(H) 0.4 - 0.8 mEq/L A-a O2 Difference 240.0(H) <=10.0 014 3:25 PM [facility] HISTORICAL RESULTS a/A Ratio 0.6(L) >=0.8 O2 Delivery Device PB840 2013 3:25 PM [facility] HISTORICAL RESULTS FiO2 100.0 % Tidal Volume 500.0 Vent Mode AC Mechanical Rate 12 4 3:25 PM [facility] HISTORICAL RESULTS PEEP 5 Drawer Maker ID [email or web address] 10/19/2013 3:10 PM CDT 10/19/2013 3:16 PM CDT us Dillon Flores MD LAB BLOOD ORDERABLES Final Re sult [facility] HISTORICAL RESULTS * (ABNORMAL) Drug Screen, Urine without Confirmation (10/19/2013 3:05 PM CDT) [facility] Ur Amphetamine Screen NEGATIVE NEGATIVE Comment: Cutoff Limit: ??1000 ng/mL Note: ??Positive results from this drug screen are unconfirmed. ??Unconfirmed screening results should not be used for non-medical purposes. Ur Barbiturates Screen NEGATIVE NEGATIVE Comment:Cutoff limit: 200 ng /mL U Benzodiazepines Scrn POSITIVE(H) NEGATIVE Comment: RESULT CALLED at: 162710/19/13 by: [id number] to: GILBERT DAVIDSON ?? CONFIRMATION on Positive result requested:N Cutoff limit: 300 ng/mL U Cannabinoids Screen POSITIVE(H) NEGATIVE Comment: RESULT CALLED at: 162710/19/13 by: [id number] to: GILBERT DAVIDSON ?? CONFIRMATION on Positive result requested:N Cutoff Limit: 50 ng/mL U Cocaine Metab Screen NEGATIVE NEGATIVE Comment:Cutoff limit: 300 ng /mL Urine Opiates Screen POSITIVE(H) NEGATIVE Comment: RESULT CALLED at: 162810/19/13 by: [id number] to: GILBERT DAVIDSON ?? CONFIRMATION on Positive result requested:N Cutoff Limit: ??300 ng/mL Urine Creatinine/JANET 155.0 mg/dL Comment:If Creatinine is < 4 0 mg/dL, recollection is suggested. 10/19/2013 3:05 PM CDT 10/19/2013 3:41 PM CDT Narrative [facility] HISTORICAL RESULTS - 10/19/2013 4:14 PM CDT Collected By me ?? 069 us Dillon Flores MD LAB URINE ORDERABLES Final Re sult [facility] HISTORICAL RESULTS * (ABNORMAL) UA with Culture Reflex (10/19/2013 3:05 PM CDT) Ur Collection Type CATHETERIZED Ur Culture Indicated? C&S NOT INDICATED Urine Color YELLOW YELLOW Urine Clarity CLEAR CLEAR Urine Glucose (UA) NORMAL NORMAL mg/dL Urine Bilirubin NEGATIVE NEGATIVE mg/dl Urine Ketones NEGATIVE NEGATIVE mg/dL Ur Specific [place] 1.013 1.005 - 1.025 Urine Blood NEGATIVE NEGATIVE mg/dl Urine pH 8.0 5.0 - 8.0 Urine Protein NEGATIVE NEGATIVE mg/dL Urine Urobilinogen 2(H) NORMAL mg/dL Urine Nitrite NEGATIVE NEGATIVE Ur Leukocyte Esterase NEGATIVE NEGATIVE Ian/ul Ur Microscopic Review Not Indicated 10/19/2013 3:05 PM CDT 10/19/2013 3:42 PM CDT [facility] HISTORICAL RESULTS - 10/19/2013 3:49 PM CDT Collected By me ?? 069 us Dillon Flores MD LAB URINE ORDERABLES Final Re sult [facility] HISTORICAL RESULTS * Microbiology Specimen Report (Converted) (10/19/2013 3:00 PM CDT) 10/19/2013 3:00 PM CDT 10/19/2013 3:06 PM CDT [facility] HISTORICAL RESULTS - 10/19/2013 3:00 PM CDT Microbiology Specimen Report (Converted) SPECIMEN [id number] ?? COLLECTED: 2013-10-19 15:00:00 [id number] ?? REQ#: [id number] REQUESTING DR: Dillon Flores MD ?? SOURCE: BLOOD ?? SP DESC: --- PROCEDURE --- ?--- RESULT --- ?? CULTURE BLOOD ADULT (SET OF 2) ??(Final) ??- ??Performed at [facility] ?* NO GROWTH DAY 5 - [facility] ? [address] [facility] ? [place] [address] ? Tate Novak MD Procedure Note 06/20/2018 Microbiology Specimen Report (Converted) SPECIMEN [id number] COLLECTED: 2013-10-19 15:00:00 [id number] REQ#:[id number] REQUESTING DR: Dillon Flores MD SOURCE: BLOOD SP DESC: --- PROCEDURE --- --- RESULT --- CULTURE BLOOD ADULT (SET OF 2) (Final) - Performed at [facility] * NO GROWTH DAY 5 - [place] [address] Tate Novak MD us Dillon Flores MD LAB BLOOD ORDERABLES Final Re sult [facility] HISTORICAL RESULTS * (ABNORMAL) TNI with LIPID PANEL (10/19/2013 3:00 PM CDT) [facility] Troponin I < 0.300 0.000 - 0.300 ng/mL Comment: Reference using [place] Chemiluminescence ? Negative: Repeat in 4-6 hours as indicated. Triglycerides 159 0 - 199 mg/dL Comment:12 hr pc highly luis mmended for Triglyceride Cholesterol 131 0 - 199 mg/dL Comment: Borderline: ??200-239 High Risk: ?? >239 HDL Cholesterol 24(L) 40 - 60 mg/dL Comment: Major Risk ?< 40 mg/dL Moderate Risk ?40-60 mg/dL Negative Risk ?? > 60 mg/dL LDL Cholesterol, Calc 75 0 - 130 mg/dL Comment:High Risk > 159 mg/d L 10/19/2013 3:00 PM CDT 10/19/2013 3:06 PM CDT [facility] HISTORICAL RESULTS - 10/19/2013 3:38 PM CDT Comment Glucose, blood, POC ? Dillon Flores MD LAB BLOOD ORDERABLES Final Re sult [facility] HISTORICAL RESULTS * Protime-INR (10/19/2013 3:00 PM CDT) PT 13.3 12.2 - 14.8 SECONDS INR 0.98 0.01 - 5.99 Comment: Recommended Therapeutic range for Oral Anticoagulant Therapy No anti-coagulation therapy ? Normal Range: ?0.8-1.4 Anti-coagulation therapy ? Low intensity therapy ?2.0-3.0 ? High intensity therapy ?? 2.5-3.5 Critical Value ? Greater than or equal to 6.0 Patients should be monitored for serious bleeding. ?? 10/19/2013 3:00 PM CDT 10/19/2013 3:06 PM CDT [facility] HISTORICAL RESULTS - 10/19/2013 3:35 PM CDT ?? Dillon Flores MD LAB BLOOD ORDERABLES Final Re sult Performing Organization Address [facility]/ZIP Co de Phone Number [facility] HISTORICAL RESULTS * aPTT (10/19/2013 3:00 PM CDT) Pathologist [facility] APTT 31 24 - 38 SECONDS 10/19/2013 3:00 PM CDT 10/19/2013 3:06 PM CDT [facility] HISTORICAL RESULTS - 10/19/2013 3:35 PM CDT ?? Dillon Flores MD LAB BLOOD ORDERABLES Final Re sult Performing Organization Address [facility] de Phone Number [facility] HISTORICAL RESULTS * Ethanol (10/19/2013 3:00 PM CDT) [facility] Ethyl Alcohol < 10 mg/dL Comment:% = mg/dL x .001 10/19/2013 3:00 PM CDT 10/19/2013 3:06 PM CDT [facility] HISTORICAL RESULTS - 10/19/2013 3:38 PM CDT Comment Glucose, blood, POC ? Dillon Flores MD LAB BLOOD ORDERABLES Final Re sult Performing Organization Address [facility] Co de Phone Number [facility] HISTORICAL RESULTS * (ABNORMAL) Comprehensive metabolic panel (10/19/2013 3:00 PM CDT) [facility] Sodium 138 135 - 145 mmol/L Potassium 3.5 3.3 - 5.1 mmol/L Chloride 100 96 - 108 mmol/L Carbon Dioxide 27 22 - 32 mmol/L Anion Gap 11 7 - 16 Glucose 107 70 - 110 mg/dL BUN 15 6 - 20 mg/dL Creatinine 1.4(H) 0.5 - 1.3 mg/dL Kidney Disease Stage 55 mL/MIN Comment: NOTE; [...] Kidney failure or on dialysis @ Calcium 9.8 8.6 - 10.0 mg/dL Total Protein 8.4 6.6 - 8.7 g/dL Albumin 4.4 3.5 - 5.2 g/dL Globulin 4.0(H) 2.3 - 3.5 gm/dL Albumin/Globulin Ratio 1.1 1.1 - 1.8 Total Bilirubin 0.5 0.0 - 1.2 mg/dL AST 24 0 - 40 U/L ALT 17 0 - 41 U/L Alkaline Phosphatase 34(L) 40 - 129 U/L 10/19/2013 3:00 PM CDT 10/19/2013 3:06 PM CDT Narrative [facility] HISTORICAL RESULTS - 10/19/2013 3:38 PM CDT Comment Glucose, blood, POC ? us Dillon Flores MD LAB BLOOD ORDERABLES Final Re sult [facility] HISTORICAL RESULTS * (ABNORMAL) CBC with auto differential (10/19/2013 3:00 PM CDT) WBC 13.0(H) 4.6 - 10.2 x10 3/ul RBC 3.83(L) 4.11 - 5.71 x10 6/ul Hemoglobin 13.3 13.0 - 17.0 g/dl Hct 37.6(L) 38.2 - 48.5 % MCV 98.2(H) 80.0 - 97.0 fl MCH 34.7(H) 27.0 - 31.2 pg MCHC 35.4 31.8 - 35.4 g/dl RDW 11.9 11.6 - 14.8 % Plt Count 383 124 - 400 x10 3/ul MPV 8.8 7.4 - 10.4 fl Differential Method AUTOMATED DIFF --------- -- Neut % 70.1 37.0 - 85.0 % Immature Gran % 0.5 0.0 - 3.0 % Lymph % 19.7 5.0 - 45.0 % Howell % 7.4 3.0 - 15.0 % Eos % 1.8 0.0 - 7.0 % Baso % 0.5 0.0 - 2.0 % ABSOLUTE COUNTS ABSOLUTE COUNTS --------- -- Absolute Neuts (auto) 9.1(H) 1.7 - 8.7 x10 3/ul Immature Gran # 0.1 0.0 - 0.3 x10 3/ul Absolute Lymphs (auto) 2.6 0.2 - 4.6 x10 3/ul Absolute Monos (auto) 1.0 0.1 - 1.5 x10 3/ul Absolute Eos (auto) 0.2 0.0 - 0.7 x10 3/ul Absolute Basos (auto) 0.1 0.0 - 0.2 x10 3/ul 10/19/2013 3:00 PM CDT 10/19/2013 3:06 PM CDT Narrative [facility] HISTORICAL RESULTS - 10/19/2013 3:14 PM CDT ?? us Dillon Flores MD LAB BLOOD ORDERABLES Final Re sult Performing Organization Address City/[facility]/ZIP Co de Phone Number [facility] HISTORICAL RESULTS * Ammonia (10/19/2013 3:00 PM CDT) Ammonia 69 27 - 102 ug/dL Comment:Lipemic specimen 10/19/2013 3:00 PM CDT 10/19/2013 3:06 PM CDT Narrative [facility] HISTORICAL RESULTS - 10/19/2013 3:48 PM CDT Comment Glucose, blood, POC ? us Dillon Flores MD LAB BLOOD ORDERABLES Final Re sult Performing Organization Address [facility] Co de Phone Number [facility] HISTORICAL RESULTS * XR Chest 1 View (10/19/2013 12:00 AM CDT) Anatomical Region Laterality Modality Body, Chest N/A Radiographic Tawanna ging 10/19/2013 Impressions 10/19/2013 4:35 PM CDT ?? 1. Endotracheal tube in place with the tip approximately 5.5 cm above the ti. 2. No acute cardiopulmonary process. THIS IS AN ELECTRONICALLY VERIFIED REPORT 10/19/2013 4:30 PM: ??Mark Nickerson M.D. Mark Nickerson M.D. CN:madhav 04:30 PM 04:30 PM [facility] [EOD] Narrative 10/19/2013 4:35 PM CDT EXAMINATION: ??Chest, one-view HISTORY: ??Endotracheal tube placement TECHNIQUE: ??Single AP view of the chest is obtained COMPARISON: ??None available FINDINGS: ??There is endotracheal tube in place with the tip approximately 5.5 cm above the ti.There is no focal consolidation, pneumothorax, or pleural effusion. ??The cardiac silhouette and mediastinal contours are within normal limits. Procedure Note Provider, MD Mirna - 08/15/2020 EXAMINATION: Chest, one-view HISTORY: Endotracheal tube placement TECHNIQUE: Single AP view of the chest is obtained COMPARISON: None available FINDINGS: There is endotracheal tube in place with the tip approximately5.5 cm above the ti.There is no focal consolidation, pneumothorax, orpleural effusion. The cardiac silhouette and mediastinal contours are withinnormal limits. IMPRESSION: 1. Endotracheal tube in place with the tip approximately 5.5 cm above the ti. 2. No acute cardiopulmonary process. THIS IS AN ELECTRONICALLY VERIFIED REPORT 10/19/2013 4:30 PM: Mark Nickerson M.D. Mark Nickerson M.D. CN:madhav 04:30 PM 04:30 PM [facility] [EOD] us Dillon Flores MD IMG XR PROCEDURES Final Resul t * CT Head WO Contrast (10/19/2013 12:00 AM CDT) Anatomical Region Laterality Modality Head and Neck N/A Computed Tomogra phy 10/19/2013 Impressions 10/19/2013 5:00 PM CDT ?? 1. ??No acute intracranial hemorrhage. ??Dense left MCA sign with very subtle regions of hypoattenuation within the left parietal lobe. ??Consider MRI of the brain. I discussed this case with Dr. Flores at 1655 hours on 10/19/2013. THIS IS AN ELECTRONICALLY VERIFIED REPORT 10/19/2013 4:56 PM: ??Anselmo Vela D.O. Anselmo Vela D.O. :as 04:56 PM 04:56 PM [facility] [EOD] Narrative 10/19/2013 5:00 PM CDT EXAMINATION: ??CT head without contrast. HISTORY: ??Altered consciousness. TECHNIQUE: ??3 mm axial images of the brain were performed without contrast. COMPARISON: ??None. FINDINGS: ??The ventricles and subarachnoid spaces are appropriate in size and normal in morphology. ??There is no hydrocephalus. ??No mass effect or midline shift is observed. ??There is no intracranial hemorrhage. There is asymmetric density within the left middle cerebral artery including its M1, M2 and some opercular branches. This is more extensive that would be anticipated for purely underlying atherosclerotic calcifications. ??Acute thrombus remains a consideration. ??There is only equivocal hypoattenuation within the ipsilateral basal ganglia and insular cortex. ??There is some ill-defined regions of subcortical or cortical hypoattenuation within the left parietal lobe (image 40/60). ??The constellation of features raises the possibility of an evolving left MCA infarction. ??If acute ischemia is suspected clinically, MRI the brain may be considered. There are no acute orbital abnormalities. ??There is mucosal thickening within both maxillary sinuses, left greater than right. ??The remaining paranasal sinuses and mastoid air cells are clear. ??There is no depressed calvarial fracture. Procedure Note Provider, MD Mirna - 08/15/2020 EXAMINATION: CT head without contrast. HISTORY: Altered consciousness. TECHNIQUE: 3 mm axial images of the brain were performed withoutcontrast. COMPARISON: None. FINDINGS: The ventricles and subarachnoid spaces are appropriate in sizeand normal in morphology. There is no hydrocephalus. No mass effect ormidline shift is observed. There is no intracranial hemorrhage. There is asymmetric density within the left middle cerebral arteryincluding its M1, M2 and some opercular branches. This is more extensive that wouldbe anticipated for purely underlying atherosclerotic calcifications. Acute thrombus remains a consideration. There is only equivocal hypoattenuation within the ipsilateral basal ganglia and insular cortex. There is some ill-defined regions of subcortical or cortical hypoattenuation within theleft parietal lobe (image 40/60). The constellation of features raises the possibility of an evolving left MCA infarction. If acute ischemia is suspected clinically, MRI the brain may be considered. There are no acute orbital abnormalities. There is mucosal thickeningwithin both maxillary sinuses, left greater than right. The remaining paranasal sinuses and mastoid air cells are clear. There is no depressed calvarial fracture. IMPRESSION: 1. No acute intracranial hemorrhage. Dense left MCA sign with verysubtle regions of hypoattenuation within the left parietal lobe. Consider MRI ofthe brain. I discussed this case with Dr. Flores at 1655 hours on 10/19/2013. THIS IS AN ELECTRONICALLY VERIFIED REPORT 10/19/2013 4:56 PM: Anselmo Vela D.O. Anselmo Vela D.O. :as 04:56 PM 04:56 PM [facility] [EOD] Dillon Flores MD IMG CT PROCEDURES Final Resul t documented in this encounter Visit Diagnoses Diagnosis Altered mental status Convulsions (HCC) Other convulsions Abnormal electrocardiogram Nonspecific abnormal electrocardiogram (ECG) (EKG) Essential hypertension Unspecified essential hypertension Other emphysema (HCC) Other emphysema Encounter for long-term (current) use of other medications documented in this encounter
--- OUTSIDE RECORDS SUMMARY | 2024-04-03 17:36 | XMS_ITS | Continuity of Care Document ---
Author Organization [facility] Address [address] [place] [address] [place] [address] Phone Care Team Providers Care Drier Tender Name Role Phone Nicho Jameson MD Unavailable Unavailable Allergies, Adverse Reactions, Alerts Substance Reaction Status Criticality No Known Allergies Active No Inform ation Medications Medication Instructions Dosage Effective Dates (start - stop) Status Comments [place] 10 mg-325 mg tablet take 1 by Oral route 3 times every day as needed 1 - Active avoid driving or operate machines Zantac 300 mg tablet take 1 tablet by oral route 2 times every day - Active aspirin 81 mg chewable tablet chew 1 tablet by oral route every day 81 MG - Active metoprolol tartrate 25 mg tablet take 1 tablet by oral route 2 times every day 25 MG - Active Norvasc 10 mg tablet take 1 tablet by oral route every day 10 MG - Active Valium 5 mg tablet take 1 tablet by oral route 3 times every day as needed 5 MG - Active avoid drivin g or operate machines Neurontin 800 mg tablet take 1 tablet by oral route 3 times every day 800 MG - Active Lipitor 40 mg tablet take 1 tablet by oral route every day 40 MG - Active Flomax 0.4 mg capsule take 1 capsule by oral route every day 1/2 hour following the same meal each day 0.4 MG - Active Keppra 500 mg tablet take 1 tablet by oral route 2 times every day 500 MG - Active Procedures Procedure Date OFFICE/OUTPATIENT VISIT, NEW Advance Directives Directive Yes / No Effective Date File Name No Information Encounters Encounter Description Practice Location Reason(s) For Visit Diagnoses Date Provider Providers Copied on Encounter OFFICE/OUTPA TIENT VISIT, [facility], [address], [place], [address], tel:[phone] [facility] CVA (chief complaint) CVA1 (chief complaint) HLP (chief complaint) HTN (chief complaint) seizure1 (chief complaint) anxiety1 (chief complaint) StrokeEpilepsy NOSHyperlipidemiaEs sential (primary) hypertension [address], [place], [address]. tel:[phone] Referring Provider: Nicho Jameson, [address] [facility] [address], [place], [address]. tel:[phone] Family History Family Member Type Diagnosis Age At Onset No Information Payers Payer name Insurance type Covered republican ID Authoriza tion(s) No Information Social History Type Description Quantity Date Captured Comments Alcohol Use Details No Caffeine Use Details Unknown Tobacco Use Status Never smoked tobacco 2016 Smoking Status Never smoker Non-Smoking Tobacco Use Details : No Details Available : No Details Available Sex Male Vital Signs Date / Time: Height Weight BMI Pulse Rate Blood Pressure Temperature Respiratory Rate Body Surface Area Head Circumference BMI percentile Pulse Ox Inhaled Ox 1:05 PM 71.00 in 184.00 lbs 25.6 6 kg/m eter (2) 101 /min 120/76 mm[Hg] 98.1 F 18 /min Chief Complaint And Reason For Visit From encounter dated '05/02/2016 11:30'. CVA (chief complaint) CVA1 (chief complaint). 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 Pt is aphasic Pt has chronic right leg and arm pain and muscle spasm. Pt also has chronic shoulder and diffuse muscle pain. Pt has 10/10 pain all the time. Pt was on hydrocodone up to8 per day and his [facility] management [facility] wants to change him to morphine. Pt and his states that morphine does not work and he does not want to change to morphine. Pt wants to continue norco for pain control. His current PCP does not manage any pain. HLP (chief complaint). Description: Pt has HLP. Pt takes lipitor. Pt dneies any myalgia HTN (chief complaint). Description: Pt has HTN. Pt takes metoprolol and norvasc and his BP is stable. Pt denies any chest pain or headache seizure1 (chief complaint). Description: Pt has history of epilepsy. Pt takes kkeppra. P thas not had any seizure for 3-4 months. Pt sees neurologist. Pt denies any headache anxiety1 (chief complaint). Description: Pt has chronic anxiety. Pt denies any depression or any suicidal thought. Pt takes valium. Pt states that he wants to go back to klonopin, which worked betterfor him in the past for anxiety. Plan Of Treatment Date Type Action Status Referral Ordered: Pain Medicine (related to Stroke) ordered Referral Ordered: Referrals: Pain Medicine. 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 Pt is aphasic Pt has chronic right leg and arm pain and muscle spasm. Pt also has chronic shoulder and diffuse muscle pain. Pt has 10/10 pain all the time. Pt was on hydrocodone up to 8 per day and his pain management [facility] wants to change him to morphine. Pt and his states that morphine does not work and he does not want to change to morphine. Pt wants to continue norco for pain control. His current PCP does not manage any pain. HTN Pt has HTN. Pt t akes metoprolol and norvasc and his BP is stable. Pt denies any chest pain or headache HLP Pt has HLP. Pt t akes lipitor. Pt dneies any myalgia seizure1 Pt has history o f epilepsy. Pt takes kkeppra. P thas not had any seizure for 3-4 months. Pt sees neurologist. Pt denies any headache anxiety1 Pt has chronic a nxiety. Pt denies any depression or any suicidal thought. Pt takes valium. Pt states that he wants to go back to klonopin, which worked better for him in the past for anxiety. CVA Instructions Date Instruction Additional Infor josué No Information Assessments Type Assessment Date assessment Stroke assessment Epilepsy NOS assessment Hyperlipidemia assessment Essential (primary) hypertension Mental Status Date Cognitive Assessment Orientation - Alpine ed to time, place, person, situation.
--- OUTSIDE RECORDS SUMMARY | 2024-04-03 23:56 | XMS_ITS | Encounter Summary ---
Author Organization [facility] Address [address] [place] [address]. [place], [place] [address] [place] [address] Care Team Providers Care Chairman Emeritus Name Role Phone Unavailable Primary Care Provider Unavailabl e Encounter Details Date Type Department Care Team (Late st Contact Info) Description 02/04/2000 Abstract [facility] Diagnostic Imaging [address] [place], [place] [id number] , Quan Sumner MD Social History Tobacco [...]
--- OUTSIDE RECORDS SUMMARY | 2024-04-03 23:56 | XMS_ITS | Encounter Summary ---
Author Organization [facility] Address [address] [place] [address]. [place] [address] [place] [address] Care Team Providers Care Aircraft Pneudraulics Repairer Name Role Phone Garrett Pineda MD Primary Care Provider [phone] Encounter Details Date Type Department Care Team (Latest Contact Info) Description 07/20/2020 12:45 PM CDT - 07/20/2020 11:59 PM CDT Hospital Encounter [facility] [place] [address] Oneal Mcguire MD Discharge Disposition: Home or [...] diseases documented in this encounter Care Teams Aircraft Pneudraulics Repairer Relationship Specialty Start Date End Date Garrett Pineda MD PCP - General FAMILY PRACTICE 02/07/20 10/16/23 documented as of this encounter
--- OUTSIDE RECORDS SUMMARY | 2024-04-03 23:56 | XMS_ITS | Encounter Summary ---
Author Organization [facility] Address [address] [place] [address]. [place] [address] [place] [address] Care Team Providers Care Vest Busheler Name Role Phone Garrett Pineda MD Primary Care Provider Encounter Details Date Type Department Care Team (Latest Contact Info) Description 06/28/2020 12:00 PM CDT - 06/28/2020 11:59 PM CDT Hospital Encounter [facility] [place] [address] Oneal Mcguire MD Discharge Disposition: Home or [...] diseases documented in this encounter Care Teams Vest Busheler Relationship Specialty Start Date End Date Garrett Pineda MD PCP - General FAMILY PRACTICE 02/07/20 10/16/23 documented as of this encounter
--- OUTSIDE RECORDS SUMMARY | 2024-04-03 23:56 | XMS_ITS | Encounter Summary ---
Author Organization [facility] Address [address] [place] [address]. [place] [address] [place] [address] Care Team Providers Care Brick Catcher Name Role Phone Shawn Berkowitz MD Primary Care Provider [phone] Encounter Details Date Type Department Care Team (Late st Contact Info) Description 09/04/2017 Abstract [facility] Medical [facility] Multispecialty Care - [facility] [address] [facility] [address] [place] [id number] Gasper Ross MD [address] [facility] [address] [place], [place] [address] Social History Tobacco Use Types Packs/Day Years [...] though with assistance. He was at [facility] on August 27 and fell [...] takes hydrocodone 7.5 mg provided by the [facility] for pain. While he was right-hand dominant [...] Gasper Ross M.D.; Sep 05 2017 10:16AM DIRECTOR DIGITAL CATALOGUE (Author) documented in this encounter Plan of [...] on filedocumented in this encounter Care Teams Brick Catcher Relationship Specialty Start Date End Date Shawn Berkowitz MD [address] [facility] [address] [place] [address] [place] [address] PCP - General INTERNAL MEDICINE 08/28/17 02/06/20 documented as of this encounter
--- OUTSIDE RECORDS SUMMARY | 2024-04-03 23:56 | XMS_ITS | Encounter Summary ---
Author Organization [facility] Address [address] [place] [address]. [place] [address] [place] [address] Care Team Providers Care Access Control Officer Name Role Phone Shawn Berkowitz MD Primary Care Provider [phone] Encounter Details Date Type Department Care Team (Latest Contact Info) Description 09/05/2017 Abstract [facility] Medical [facility] Social History Tobacco Use [...] on filedocumented in this encounter Care Teams Access Control Officer Relationship Specialty Start Date End Date Shawn Berkowitz MD [address] [facility] [place] [address] PCP - General INTERNAL MEDICINE 08/28/17 02/06/20 documented as of this encounter
--- OUTSIDE RECORDS SUMMARY | 2024-04-03 23:56 | XMS_ITS | Encounter Summary ---
Author Organization [facility] Address [address] [place] [address]. [place] [address] [place] [address] Care Team Providers Care Traveling Freight Agent Name Role Phone Evaristo Chapin DO Primary Care Provider [phone] Reason for Visit * Reason Onset Date Comments Appointment Reminder 03/10/2024 Encounter Details Date Type Department Care Team (Late st Contact Info) Description 03/10/2024 Telephone [facility] Family Medicine [facility] [address] [place] [phone] Evaristo Chapin DO [address] [place] [address] Appointment Reminder Social History Tobacco Use [...] he wanted to reschedule his missed appointment. VITIES VOLUNTEER documented in this encounter Plan of Treatment Not on file documented as of this encounter Visit Diagnoses Not on filedocumented in this encounter Care Teams Traveling Freight Agent Relationship Specialty Start Date End Date Evaristo Chapin DO [address] [place] [address] PCP - General FAMILY PRACTICE 10/17/23 documented as of this encounter
--- OUTSIDE RECORDS SUMMARY | 2024-04-03 23:56 | XMS_ITS | Encounter Summary ---
Author Organization [facility] Address [address] [place] [address]. [place] [address] [place] [address] Care Team Providers Care Compensation/Benefits Specialist Name Role Phone Garrett Pineda MD Primary Care Provider [phone] Reason for Visit * Reason Onset Date Comments Appointment Request 02/15/2021 Encounter Details Date Type Department Care Team (Late st Contact Info) Description 02/15/2021 Telephone [facility] Medical [facility] Family Medicine [facility] [address] [place] [address] Garrett Pineda MD [address] [address] Appointment Request Social History Tobacco [...] schedule EE visit My direct line is [phone] RAL RESOURCES ENGINEER documented in this encounter Plan of Treatment Not on file documented as of this encounter Visit Diagnoses Not on filedocumented in this encounter Care Teams Compensation/Benefits Specialist Relationship Specialty Start Date End Date Garrett Pineda MD PCP - General FAMILY PRACTICE 02/07/20 10/16/23 documented as of this encounter
--- OUTSIDE RECORDS SUMMARY | 2024-04-03 23:56 | XMS_ITS | Encounter Summary ---
Author Organization [facility] Address [address] [place] [address]. 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
--- OUTSIDE RECORDS SUMMARY | 2024-04-03 23:56 | XMS_ITS | Encounter Summary ---
Author Organization [facility] Address [address] [place] [address]. [place], [place] [address] [place] [address] Care Team Providers Care Care Transport Nurse Name Role Phone Unavailable Primary Care Provider Unavailabl e Encounter Details Date Type Department Care Team (Late st Contact Info) Description 06/16/1996 Abstract [facility] [place], [place] [id number] , Generic Conversion, Social History Tobacco Use [...]
--- OUTSIDE RECORDS SUMMARY | 2024-04-03 23:56 | XMS_ITS | Encounter Summary ---
Author Organization [facility] Address [address] [place] [address]. [place] [address] [place] [address] Care Team Providers Care Director Of Religious Activities Name Role Phone Garrett Pineda MD Primary Care Provider [phone] Encounter Details Date Type Department Care Team [...] filedocumented in this encounter Care Teams Director Of Religious Activities Relationship Specialty Start Date End Date Garrett Pineda MD PCP - General FAMILY PRACTICE 02/07/20 10/16/23 documented as of this encounter
--- OUTSIDE RECORDS SUMMARY | 2024-04-03 23:56 | XMS_ITS | Encounter Summary ---
Author Organization [facility] Address [address] [place] [address]. [place] [address] [place] [address] Care Team Providers Care Underwriting Operations Manager Name Role Phone Shawn Berkowitz MD Primary Care Provider [phone] Encounter Details Date Type Department Care Team (Latest Contact Info) Description 11/11/2017 Abstract [facility] Medical Group Gasper Ross MD [address] [facility] [address] [place], [place] [id number] Social History Tobacco Use Types Packs/Day Years [...] to Recorded Allergies 1. codeine Vitals Recorded: [id number] 01:18PM Heart Rate 68 Systolic 111 Diastolic 59 Unable to obtain weight Patient in wheelchair Plan Fracture, humerus 1. Triamcinolone Acetonide 40 MG/ML Injection Suspension (Kenalog) Formulary Override Reason: Drug is unfamiliar, will consider in future Signatures Electronically signed by : Gasper Ross M.D.; Nov 12 2017 11:54AM BILLING SUPERVISOR (Author) documented in this encounter Plan of Treatment Not on file documented as of this encounter Visit Diagnoses Not on filedocumented in this encounter Care Teams Underwriting Operations Manager Relationship Specialty Start Date End Date Shawn Berkowitz MD [address] [facility] [place] [address] PCP - General INTERNAL MEDICINE 08/28/17 02/06/20 documented as of this encounter
--- OUTSIDE RECORDS SUMMARY | 2024-04-03 23:56 | XMS_ITS | Encounter Summary ---
Author Organization [facility] Address [address] [place] [address]. [place] [address] [place] [address] Care Team Providers Care Concrete Pile Driver Operator Name Role Phone Shawn Berkowitz MD Primary Care Provider [phone] Reason for Visit * Reason Comments Fall Encounter Details Date Type Department Care Team ([facility] st Contact Info) Description 08/28/2017 10:21 AM CDT - 08/28/2017 1:07 PM CDT Emergency [facility] Emergency Room [address] [place], [place] [address] Mary Kay Richmond PA-C [address] [place] [address] Fall Discharge Disposition: Home or Self Care [...] feeling worse Where can I learn more? [place] [employer] http://orthoinfo.aaos.org/topic.cfm?nscyq=N09751 http://orthoinfo.aaos.org/topic.cfm?nfqfg=R42022 [place] [employer] http://handcare.ass.org/Hand-Anatomy/Details-Page/ArticleID/08730/Elbow-Fractur es.aspx http://handcare.ass.org/Hand-Anatomy/Details-Page/ArticleID/37496/Shoulder-Frac tures.aspx Last Reviewed Date 2014-07-06 Consumer Information [...] for you. Copyright Copyright ?? 2018 [employer] and its affiliates [...] RT MIN 2V Final Result by User, [id number] (08/28 1225) Examination: 2 views right humerus Exam date/time: [...] ELBOW RT M3V Final Result by User, [email or web address] (08/28 1221) Examination: 3 views right elbow [...] FOREARM RT 2V Final Result by User, [id number] (08/28 1211) Examination: 2 views right forearm [...] RT MIN 3V Final Result by User, [id number] (08/28 1205) Examination: Right wrist 3 views [...] No focal erosive or destructive changes seen. Mwhz-nz-tsvdofxg degenerative marginal spurring present. Visualized soft tissues [...] seeing a pain mgmt doctor at the [facility]. She recommended giving him norco here and d/c home with rx for norco for 5-7 days. Clinical Impression Right humeral fracture (Primary) Abrasion of elbow, right Disposition: Discharge Mary Kay Richmond PA-C 08/28/17 1312 Cosigned by Tanika Castellanos MD at 08/28/2017 6:04 PM CDT Associated attestation - Tanika Castellaons MD - 08/28/2017 6:04 PM CDT I, [...] triage due to fall. Patient was at [facility] yesterday for medical appointments when the patient fell out of wheelchair and landed on ground. Accident report filled out at [facility] and patient went home. Patient reports laceration [...] No focal erosive or destructive changes seen. Jfkb-xz-rdsppplr degenerative marginal spurring present. Visualized soft tissues [...] No focal erosive or destructive changes seen. Wefd-qi-aqipqskw degenerative marginal spurring present. Visualized soft tissues [...] LPN) documented in this encounter Care Teams Concrete Pile Driver Operator Relationship Specialty Start Date End Date Shawn Berkowitz MD [address] [facility] [place] [address] PCP - General INTERNAL MEDICINE 08/28/17 02/06/20 documented as of this encounter
--- OUTSIDE RECORDS SUMMARY | 2024-04-03 23:56 | XMS_ITS | Encounter Summary ---
Author Organization [facility] Address [address] [place] [address]. [place], [place] [address] [place] [address] Care Team Providers Care Manager Property Name Role Phone Garrett Pineda MD Primary Care Provider [phone] Encounter Details Date Type Department Care Team [...] on filedocumented in this encounter Care Teams Manager Property Relationship Specialty Start Date End Date Garrett Pineda MD PCP - General FAMILY PRACTICE 02/07/20 10/16/23 documented as of this encounter
--- OUTSIDE RECORDS SUMMARY | 2024-04-03 23:56 | XMS_ITS | Encounter Summary ---
Author Organization [facility] Address [address] [place] [address]. [place] [address] [place] [address] Care Team Providers Care Computer Engineer Name Role Phone Garrett Pineda MD Primary Care Provider [phone] Encounter Details Date Type Department Care Team [...] on filedocumented in this encounter Care Teams Computer Engineer Relationship Specialty Start Date End Date Garrett Pineda MD PCP - General FAMILY PRACTICE 02/07/20 10/16/23 documented as of this encounter
--- OUTSIDE RECORDS SUMMARY | 2024-04-03 23:56 | XMS_ITS | Encounter Summary ---
Author Organization [facility] Address [address] [place] [address]. [place] [address] [place] [address] Care Team Providers Care Stringer Up Soldering Machine Name Role Phone Shawn Berkowitz MD Primary Care Provider [phone] Encounter Details Date Type Department Care Team [...] on filedocumented in this encounter Care Teams Stringer Up Soldering Machine Relationship Specialty Start Date End Date Shawn Berkowitz MD [address] [facility] [place] [address] PCP - General INTERNAL MEDICINE 08/28/17 02/06/20 documented as of this encounter
--- OUTSIDE RECORDS SUMMARY | 2024-04-03 23:56 | XMS_ITS | Encounter Summary ---
Author Organization [facility] Address [address] [place] [address]. [place], [place] [address] [place] [address] Care Team Providers Care Carpet Sewing Machine Operator Name Role Phone Unavailable Primary Care Provider Unavailabl e Encounter Details Date Type Department Care Team (Late st Contact Info) Description 02/04/2000 Abstract [facility] Diagnostic Imaging [address] [place], [place] [id number] , Quan Sumner MD Social History Tobacco [...]
--- OUTSIDE RECORDS SUMMARY | 2024-04-03 23:56 | XMS_ITS | Encounter Summary ---
Author Organization [facility] Address [address] [place] [address]. [place] [address] [place] [address] Care Team Providers Care Railroad Baggage Porter Name Role Phone Garrett Pineda MD Primary Care Provider [phone] Reason for Referral * Imaging (Emergency) - New Request Specialty Diagnoses / Procedures Referred By Contac t Referred To Contact RADIOLOGY Procedures CT CERV SPINE WO CON Tyshawn Devi MD,PHD [address] [place] [address] Phone: tel: fax: Referral ID Status Reason Start Date Expiration Date V isits Requested Visits Authorized [id number] New Request 09/26/2023 2024 1 1 * Imaging (Emergency) - New Request Specialty Diagnoses / Procedures Referred By Contac t Referred To Contact RADIOLOGY Procedures CT HEAD WO CON Tyshawn Devi MD,PHD [address] [place] [address] Phone: tel: fax: Referral ID Status Reason Start Date Expiration Date V isits Requested Visits Authorized [id number] New Request 09/26/2023 2024 1 1 Reason for Visit * Reason Comments Fall Encounter Details Date Type Department Care Team (Late st Contact Info) Description 09/26/2023 12:13 PM CDT - 09/26/2023 5:22 PM CDT Emergency [facility] [place] [address] Tyshawn Devi MD,PHD [address] [place] [address] Fall Discharge Disposition: Home or Self Care [...] through Care Everywhere. * Preventing Falls ED (Malagasy) documented in this encounter Medications at Time [...] 4:13 PM CDT This RN spoke to [place] [facility] in order to obtain a ride for pt back home. [place] states they willcall back. * Paola Stock [...] XR CHEST PA+LAT Final Result by User, [id number] (09/25 1529) Examination: Chest x-ray 2 view [...] Jiang MD, 09/26/2023 3:25 PM XR HIP VDEA 2V+PELVIS Final Result by User, [id number] (09/25 7976) Examination: Pelvis AP view and bilateral Hips [...] THOR SPINE 3V Final Result by User, [id number] (09/25 8771) CLINICAL INDICATION: 68-year-old male. Reason for examination: Fall, back pain. 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 Per ems pt had [...] LUMB SPINE 3V Final Result by User, [email or web address] (09/25 9204) CLINICAL INDICATION: 68-year-old male. Reason for examination: Fall, back pain. 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.Per ems pt had a [...] Jiang MD, 09/26/2023 1:10 PM us Tyshawn Devi MD,PHD CT Final Resu lt * CT [...] - 99 MG/DL 09/26/2023 1:13 PM CDT [facility] BUN 24(H) 7 - 18 MG/DL 09/26/2023 1:13 PM CDT [facility] CREATININE S/P/B 1.30 0.7 - 1.3 MG/DL 09/26/2023 1:13 PM CDT [facility] SODIUM S/P/B 141 136 - 145 MMOL/L 09/26/2023 1:13 PM CDT [facility] POTASSIUM S/P/B 3.9 3.5 - 5.1 MMOL/L 09/26/2023 1:13 PM CDT [facility] CHLORIDE S/P/B 110(H) 100 - 108 MMOL/L 09/26/2023 1:13 PM CDT [facility] CO2 27.7 21 - 32 MMOL/L 09/26/2023 1:13 PM CDT [facility] CALCIUM S/P/B 8.7 8.5 - 10.1 MG/DL 09/26/2023 1:13 PM CDT [facility] BILIRUBIN TOTAL S/P/B 0.2 0.2 - 1.2 MG/DL 09/26/2023 1:13 PM CDT [facility] Comment: THIS ASSAY IS NOT RECOMMENDED FOR PATIENTS UNDERGOING TREATMENT WITH ELTROMBOPAG DUE TO THE POTENTIAL FOR FALSELY ELEVATED RESULTS. TOTAL PROTEIN S/P/B 7.3 6.4 - 8.2 G/DL 09/26/2023 1:13 PM CDT [facility] ALBUMIN S/P/B 2.8(L) 3.4 - 5.0 G/DL 09/26/2023 1:13 PM CDT [facility] AST 9(L) 15 - 37 U/L 09/26/2023 1:13 PM T [facility] ALT 18 16 - 60 U/L 09/26/2023 1:13 PM T [facility] ALKALINE PHOSPHATASE S/P/B 119 50 - 136 U/L 09/26/2023 1:13 PM T [facility] ANION GAP 3.3(L) 5 - 15 MMOL/L 09/26/2023 1:13 PM T [facility] BUN CREATININE RATIO 18.5 6 - 26 09/26/2023 1:13 PM T [facility] A/G RATIO 0.6(L) 1.0 - 2.0 RATIO 09/26/2023 1:13 PM T [facility] GFR ESTIMATE 59(L) >90 ML/MIN/1.7 3 M2 09/26/2023 1:13 PM T [facility] Comment: NOTE: eGFR is not calculated for patients <18 years of age. This is an estimated GFR calculation using the new CKD EPI creatinine equation without race and so does not require a correction factor for race. This estimated GFR should not be used for calculating drug doses. 09/26/2023 12:4 1 PM CDT us Tyshawn Devi MD,PHD LABORATORY Final Resu lt [facility] [address] [place] [address], * (ABNORMAL) CBC W/DIFF AUTOMATED (09/26/2023 12:41 PM CDT) [facility] Signature WBC 9.90 4.5 - 11.0 x10'3/uL 09/26/2023 12:50 PM CDT [facility] RBC 3.41(L) 4.70 - 6.10 x10'6/uL 09/26/2023 12:50 PM CDT [facility] HGB 11.5(L) 14.0 - 18.0 G/DL 09/26/2023 12:50 PM CDT [facility] HCT 35.4(L) 43.0 - 54.0 % 09/26/2023 12:50 PM CDT [facility] MCV 103.8(H) 80.0 - 94.0 FL 09/26/2023 12:50 PM CDT [facility] MCH 33.7(H) 27.0 - 31.0 PG 09/26/2023 12:50 PM CDT [facility] MCHC 32.5 32.0 - 36.0 G/DL 09/26/2023 12:50 PM CDT [facility] RDW 12.8 11.5 - 14.5 % 09/26/2023 12:50 PM CDT [facility] PLT 273 130 - 400 x10'3/uL 09/26/2023 12:50 PM CDT [facility] MPV 9.6 9.3 - 12.2 FL 09/26/2023 12:50 PM CDT [facility] DIFFERENTIAL TYPE AUTOMATED DIFFERENTIAL 09/26/2023 12:50 PM CDT [facility] NEUTROPHILS % 84.7 % 09/26/2023 12:50 PM CDT [facility] LYMPHOCYTES % 7.4 % 09/26/2023 12:50 PM CDT [facility] MONOCYTES % 5.3 % 09/26/2023 12:50 PM CDT [facility] EOSINOPHILS 1.7 % 09/26/2023 12:50 PM CDT [facility] BASOPHILS 0.6 % 09/26/2023 12:50 PM CDT [facility] IMMATURE GRANS % 0.3 % 09/26/19 12:50 PM CDT [facility] ABS. NEUTROPHILS 8.39(H) 1.80 - 7.70 x10'3/uL 09/26/2023 12:50 PM CDT [facility] ABS. LYMPHOCYTES 0.73(L) 1.00 - 4.80 x10'3/uL 09/26/2023 12:50 PM CDT [facility] ABS. MONOCYTES 0.52 0.30 - 0.82 x10'3/uL 09/26/2023 12:50 PM CDT [facility] ABS. EOSINOPHILS 0.17 0.04 - 0.54 x10'3/uL 09/26/2023 12:50 PM CDT [facility] ABS. BASOPHILS 0.06 0.01 - 0.08 x10'3/uL 09/26/2023 12:50 PM CDT [facility] ABS. IMMATURE GRANULOCYTES 0.03 0.00 - 0.49 x10'3/uL 09/26/2023 12:50 PM CDT [facility] 09/26/2023 12:4 1 PM CDT us Tyshawn Devi MD,PHD LABORATORY Final Resu lt [facility] [address] [place] [address], documented in this encounter Visit Diagnoses Diagnosis Ground-level fall- Primary documented in this encounter Care Teams Railroad Baggage Porter Relationship Specialty Start Date End Date Garrett Pineda MD PCP - General FAMILY PRACTICE 02/07/20 10/16/23 documented as of this encounter
--- OUTSIDE RECORDS SUMMARY | 2024-04-03 23:56 | XMS_ITS | Encounter Summary ---
Author Organization [facility] Address [address] [place] [address]. [place], [place] [address] [place] [address] Care Team Providers Care Risk Management Analyst Name Role Phone Unavailable Primary Care Provider Unavailabl e Encounter Details Date Type Department Care Team (Late st Contact Info) Description 05/31/1998 Abstract [facility] CONVERSION [place], [place] [id number] , Generic Conversion, Social History Tobacco Use [...]
--- OUTSIDE RECORDS SUMMARY | 2024-04-03 23:56 | XMS_ITS | Clinical Summary ---
Author Organization [facility] Address [address] [place] [address]. [place] [address] [place] [address] Care Team Providers Care Applications Specialist Name Role Phone Evaristo Chapin DO Primary Care Provider Allergies No known active allergies Medications metoprolol [...] Type Department Care Team Description 03/10/[address] [facility] Family Medicine - [place] [address] [place] [address] Evaristo Chapin DO Appointment Reminder [...] Recently Relevant to Health Maintenance Insurance MEDICARE [facility] Care Teams Applications Specialist Relationship Specialty Start Date End Date Evaristo Chapin [place] [place] [address] PCP - General FAMILY PRACTICE 10/17/23
--- OUTSIDE RECORDS SUMMARY | 2024-04-03 23:56 | XMS_ITS | Encounter Summary ---
Author Organization [facility] Address [facility] [place] [address] [place] [address] Care Team Providers Care Wheel Roller Name Role Phone Garrett Pineda MD Primary Care Provider [phone] Reason for Visit * Reason Onset Date Comments Record Request 10/13/2020 Encounter Details Date Type Department Care Team (Late st Contact Info) Description 10/13/2020 Telephone [facility] Family Medicine - [place] [address] [place] [address] Garrett Pineda MD [address] [address] Record Request Social History Tobacco [...] cancer screening result. My direct extension is [phone]. You can also reach me at: [phone] (RENZO) [place] [phone] (LEV) documented in this encounter Plan of Treatment Not on file documented as of this encounter Visit Diagnoses Not on filedocumented in this encounter Care Teams Wheel Roller Relationship Specialty Start Date End Date Garrett Pineda MD PCP - General FAMILY PRACTICE 02/07/20 10/16/23 documented as of this encounter
--- OUTSIDE RECORDS SUMMARY | 2024-04-03 23:56 | XMS_ITS | Encounter Summary ---
Author Organization [facility] Address [address] [place] [address]. [place] [address] [place] [address] Care Team Providers Care Gimp Tacker Name Role Phone Garrett Pineda MD Primary Care Provider [phone] Reason for Visit * Reason Onset Date Comments Appointment Request 09/16/2023 Encounter Details Date Type Department Care Team (Late st Contact Info) Description 09/16/2023 Telephone [facility] Family Medicine - [address] [address] Evaristo Chapin, DO [address] [place] [address] Appointment Request Social History Tobacco Use [...] on filedocumented in this encounter Care Teams Gimp Tacker Relationship Specialty Start Date End Date Garrett Pineda MD PCP - General FAMILY PRACTICE 02/07/20 10/16/23 documented as of this encounter
--- OUTSIDE RECORDS SUMMARY | 2024-04-03 23:56 | XMS_ITS | Encounter Summary ---
Author Organization [facility] Address [address] [place] [address]. [place] [address] [place] [address] Care Team Providers Care Supervisor Fish Processing Name Role Phone Shawn Berkowitz MD Primary Care Provider [phone] Garrett Pineda MD Primary Care Provider [phone] Reason for Visit * Reason Comments Colonoscopy Report (SCAN) Encounter Details Date Type Department Care Team ([facility] Contact Info) Description 07/25/2017 Scan HEALTH [...] on filedocumented in this encounter Care Teams Supervisor Fish Processing Relationship Specialty Start Date End Date Shawn Berkowitz MD [address] [place] [address] PCP - General INTERNAL MEDICINE 08/28/17 02/06/20 Garrett Pineda MD [address] [place] [address] PCP - General FAMILY PRACTICE 02/07/20 10/16/23 documented as of this encounter
--- OUTSIDE RECORDS SUMMARY | 2024-04-03 23:56 | XMS_ITS | Encounter Summary ---
Author Organization [facility] Address [address] [place] [address]. [place], [place] [address] [place] [address] Care Team Providers Care Marketing Administrative Assistant Name Role Phone Unavailable Primary Care Provider Unavailabl e Encounter Details Date Type Department Care Team (Late st Contact Info) Description 03/16/2001 Abstract [facility] [address] [place], [place] [id number] , Quan Sumner MD Social History Tobacco [...]
--- OUTSIDE RECORDS SUMMARY | 2024-04-03 23:57 | XMS_ITS | Continuity of Care Document ---
Author Organization [facility] Address [address] [place] [address] [place] [address] Phone Care Team Providers Care Web Services Manager Name Role Phone Nicho Jameson MD Unavailable Unavailable Allergies, Adverse Reactions, Alerts Substance Reaction Status Criticality No Known Allergies Active No Inform ation Medications Medication Instructions Dosage Effective Dates (start - stop) Status Comments Keppra 500 mg tablet take 1 tablet by oral route 2 times every day 500 MG - Active Flomax 0.4 mg capsule take 1 capsule by oral route every day 1/2 hour following the same meal each day 0.4 MG - Active Lipitor 40 mg tablet take 1 tablet by oral route every day 40 MG - Active Neurontin 800 mg tablet take 1 tablet by oral route 3 times every day 800 MG - Active Valium 5 mg tablet take 1 tablet by oral route 3 times every day as needed 5 MG - Active avoid drivin g or operate machines Norvasc 10 mg tablet take 1 tablet by oral route every day 10 MG - Active metoprolol tartrate 25 mg tablet take 1 tablet by oral route 2 times every day 25 MG - Active aspirin 81 mg chewable tablet chew 1 tablet by oral route every day 81 MG - Active Zantac 300 mg tablet take 1 tablet by oral route 2 times every day - Active [place] 10 mg-325 mg tablet take 1 by Oral route 3 times every day as needed 1 - Active avoid driving or operate machines Procedures Procedure Date OFFICE/OUTPATIENT VISIT, NEW Advance Directives Directive Yes / No Effective Date File Name No Information Encounters Encounter Description Practice Location Reason(s) For Visit Diagnoses Date Provider Providers Copied on Encounter OFFICE/OUTPA TIENT VISIT, [facility], [address], [place], [address], tel:[phone] [facility] CVA (chief complaint) CVA1 (chief complaint) HLP (chief complaint) HTN (chief complaint) seizure1 (chief complaint) anxiety1 (chief complaint) StrokeEpilepsy NOSHyperlipidemiaEs sential (primary) hypertension [address], [place], [address]. tel:[phone] Referring Provider: Nicho Jameson, [address] [facility] [address], [place], [address]. tel:[phone] Family History Family Member Type Diagnosis Age [...] per day and his pain management at [facility] wants to change him to morphine. Pt [...] Date Complaint History Of Prese nt Illness CVA anxiety1 Pt has chronic a nxiety. Pt denies any depression or any suicidal thought. Pt takes valium. Pt states that he wants to go back to klonopin, which worked better for him in the past for anxiety. seizure1 Pt has history o f epilepsy. Pt takes kkeppra. P thas not had any seizure for 3-4 months. Pt sees neurologist. Pt denies any headache HLP Pt has HLP. Pt t akes lipitor. Pt dneies any myalgia HTN Pt has HTN. Pt t akes metoprolol and norvasc and his BP is stable. Pt denies any chest pain or headache CVA1 Pt has left side hemisphere CVA two years ago s/p chronic right side weakness. Pt is aphasic Pt has chronic right leg and arm pain and muscle spasm. Pt also has chronic shoulder and diffuse muscle pain. Pt has 10/10 pain all the time. Pt was on hydrocodone up to 8 per day and his pain management at [facility] wants to change him to morphine. Pt and his states that morphine does not work and he does not want to change to morphine. Pt wants to continue norco for pain control. His current PCP does not manage any pain. Instructions Date Instruction Additional Infor josué No Information Assessments Type Assessment Date assessment Stroke assessment Epilepsy NOS assessment Hyperlipidemia assessment Essential (primary) hypertension Mental Status Date Cognitive Assessment Orientation - [place] ed to time, place, person, situation.
--- OUTSIDE RECORDS SUMMARY | 2024-04-03 23:57 | XMS_ITS | Clinical Summary ---
Author Organization [facility] Address [address] [place] [address] Care Team Providers Care Technical Sales Manager Name Role Phone Shawn Berkowitz MD Primary Care Provider [phone] Allergies Active Allergy Reactions Criticality Noted Date [...] Asymptomatic Assessment & Plan (03/03/2019 12:11 PM BIOMEDICAL ENGINEERING DIRECTOR): Will stop Zantac and start him on [...] Flomax Assessment & Plan (03/03/2019 12:11 PM BIOMEDICAL ENGINEERING DIRECTOR): Asymptomatic Assessment & Plan (11/25/2018 12:04 PM CDT): Controlled on Flomax Assessment & Plan (08/25/2018 3:53 PM CDT): Controlled on Flomax Onychomycosis 08/25/2018 Assessment & Plan (08/25/2018 3:54 PM CDT): Will make him a referral to see a film and video graphics designer for further evaluation History of CVA with [...] level Assessment & Plan (03/03/2019 12:10 PM BIOMEDICAL ENGINEERING DIRECTOR): Controlled on Keppra and will obtained Keppra [...] monitor Assessment & Plan (03/03/2019 12:10 PM BIOMEDICAL ENGINEERING DIRECTOR): Continue current medications. Discussed low-salt diet. 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 Assessment & Plan (11/25/2018 12:03 PM CDT): The patient is maintained on aspirin daily Cerebrovascular accident (CV A) involving left cerebral hemisphere 02/02/2015 Hemiparesis as late effect o f cerebrovascular accident (CVA) ([facility]) 12/10/2013 Assessment & Plan (01/24/2020 12:05 PM [...] daily Assessment & Plan (03/03/2019 12:09 PM BIOMEDICAL ENGINEERING DIRECTOR): Left-sided weakness secondary to all CVA with [...] History Date Comments Hyperlipidemia Hypertension Depression Stroke ([facility]) Family History Medical History Relation Name Comments [...] on file Legal Sex Male 6:59 AM BIOMEDICAL ENGINEERING DIRECTOR Gender Identity Not on file Sexual Orientation Not on file Obstetrics History Last Filed Vital Signs Vital Sign Reading Time Taken Comments Blood Pressure 106/82 05/29/2020 1:26 PM BIOMEDICAL ENGINEERING DIRECTOR Pulse 93 05/29/2020 1:26 PM BIOMEDICAL ENGINEERING DIRECTOR Temperature 36.6 ??C (97.8 ??F) 05/29/2020 1:26 PM CS T Respiratory Rate 16 01/24/2020 11:07 AM CDT Oxygen Saturation 95% 05/29/2020 1:26 PM BIOMEDICAL ENGINEERING DIRECTOR Inhaled Oxygen Concentration - - Weight 77 kg (169 lb 12.1 oz) 05/29/2020 1:26 PM BIOMEDICAL ENGINEERING DIRECTOR Height 177.8 cm (5' 10 ) 01/24/2020 11:07 AM CDT Body Mass Index 24.36 01/24/2020 11:07 AM CDT Plan of Treatment Not on file Additional Health Concerns Infection Onset Date Last Indicated C. difficile Comment:Germ watcher auto flagging 01/15/2014 01/15/2014 Insurance Care Teams Technical Sales Manager Relationship Specialty Start Date End Date Shawn Berkowitz MD [address] [address] PCP - General Internal Medicine 08/11/18
--- OUTSIDE RECORDS SUMMARY | 2024-04-03 23:58 | XMS_ITS | Referral Summary ---
Author Organization [facility] Address [address] [place] [address] Care Team Providers Care Hedis Manager Name Role Phone Shawn Berkowitz MD Primary Care Provider [phone] Allergies Active Allergy Reactions Criticality Noted Date [...] Asymptomatic Assessment & Plan (03/03/2019 12:11 PM TRANSFER PUMPER): Will stop Zantac and start him on [...] Flomax Assessment & Plan (03/03/2019 12:11 PM TRANSFER PUMPER): Asymptomatic Assessment & Plan (11/25/2018 12:04 PM CDT): Controlled on Flomax Assessment & Plan (08/25/2018 3:53 PM CDT): Controlled on Flomax Onychomycosis 08/25/2018 Assessment & Plan (08/25/2018 3:54 PM CDT): Will make him a referral to see a armhole feller handstitching machine for further evaluation History of CVA with [...] level Assessment & Plan (03/03/2019 12:10 PM TRANSFER PUMPER): Controlled on Keppra and will obtained Keppra [...] monitor Assessment & Plan (03/03/2019 12:10 PM TRANSFER PUMPER): Continue current medications. Discussed low-salt diet. Discussed [...] (01/24/2020 12:05 PM CDT): Managed by the [place] physician Assessment & Plan (07/13/2019 1:53 PM CDT): Managed by the [place] Assessment & Plan (03/03/2019 12:10 PM TRANSFER PUMPER): The patient with history of chronic back pain and he was advised to follow up for that at the [place] [facility] Assessment & Plan (11/25/2018 12:04 PM CDT): The patient has a chronic back pain and he was advised to follow up with the Pain Management at the [place] Occlusion of left carotid artery 03/13/2015 Assessment & Plan (11/25/2018 12:03 PM CDT): The patient is maintained on aspirin daily Cerebrovascular accident (CV A) involving left cerebral hemisphere 02/02/2015 Hemiparesis as late effect o f cerebrovascular accident (CVA) ([facility]) 12/10/2013 Assessment & Plan (01/24/2020 [...] daily Assessment & Plan (03/03/2019 12:09 PM TRANSFER PUMPER): Left-sided weakness secondary to all CVA with [...] on file Legal Sex Male 6:59 AM TRANSFER PUMPER Gender Identity Not on file Sexual Orientation Not on file Last Filed Vital Signs Vital Sign Reading Time Taken Comments Blood Pressure 106/82 05/29/2020 1:26 PM TRANSFER PUMPER Pulse 93 05/29/2020 1:26 PM TRANSFER PUMPER Temperature 36.6 ??C (97.8 ??F) 05/29/2020 1:26 PM CS T Respiratory Rate 16 01/24/2020 11:07 AM CDT Oxygen Saturation 95% 05/29/2020 1:26 PM TRANSFER PUMPER Inhaled Oxygen Concentration - - Weight 77 kg (169 lb 12.1 oz) 05/29/2020 1:26 PM TRANSFER PUMPER Height 177.8 cm (5' 10 ) 01/24/2020 11:07 AM CDT Body Mass Index 24.36 01/24/2020 11:07 AM CDT Plan of Treatment Not on file Additional Health Concerns Infection Onset Date Last Indicated C. difficile Comment:Germ watcher auto flagging 01/15/2014 01/15/2014 Insurance HEALTHCARE Care Teams Hedis Manager Relationship Specialty Start Date End Date hSawn Berkowitz MD [address] [facility] [address] [address] PCP - General Internal Medicine 08/11/18
--- OUTSIDE RECORDS SUMMARY | 2024-04-03 23:58 | XMS_ITS | Encounter Summary ---
Author Organization [facility] Address [address] [facility] [address] [place] [address] Care Team Providers Care Toll Booth Operator Name Role Phone Shawn Berkowitz MD Primary Care Provider [phone] Reason for Visit * Reason Comments Medicare Wellness Just got Labs done t portia - CVA - Needs a new wheelchair Encounter Details Date Type Department Care Team (Late st Contact Info) Description 10/20/2019 3:30 PM CDT Office Visit [facility] Internal Medicine [address] [facility] [address] [place] [address] Shawn Berkowitz MD [address] [place] [address] [address] [place], [place] [id number] Hemiparesis as late effect of cerebrovascular accident [...] on file Legal Sex Male 6:59 AM RESERVATION CLERK Gender Identity Not on file Sexual [...] Directive (Living Will) and/or Durable Power of Marine Geologist?: No Would you like information regarding Advanced Directiv (Living Will) and/or Durable Power of Marine Geologist?: No Do you have trouble hearing the [...] file Gets together: Not on file Attends mandaen service: Not on file Active member of [...] General (Internal Medicine) Primary Pharmacy/DME suppliers: [id number] [place], [place] - [address] [place] [address] [address] [facility] [address] Detection of Cognitive Impairment: Detect cognitive impairment [...] as late effect of cerebrovascular accident (CVA) ([facility]) (Primary) Assessment & Plan: The patient has chronic hemiparesis secondary to old CVA. No change. Continue aspirin daily. The patient has paralysis on the right side and he needs a wheelchair to help him with ambulation . Recurrent major depressive disorder, remission status unspecified ([facility]) Assessment & Plan: Controlled on fluoxetine Essential (primary) hypertension Assessment & Plan: Will stop metoprolol because of low blood pressure. He will continue amlodipine. Will continue to monitor Seizure ([facility]) Assessment & Plan: Patient is maintained [...] documented as of this encounter Care Teams Toll Booth Operator Relationship Specialty Start Date End Date Shawn Berkowitz MD [address] [facility] [address] [address] PCP - General Internal Medicine 08/11/18 documented as of this encounter
--- OUTSIDE RECORDS SUMMARY | 2024-04-03 23:58 | XMS_ITS | Encounter Summary ---
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
--- OUTSIDE RECORDS SUMMARY | 2024-04-03 23:58 | XMS_ITS | Encounter Summary ---
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 Patient Name: CURLY ANGELO ? MR#: [id number] ?? [id number] ? Status: REG CLI ? D.O.B: 1955 Age: ??62 ?Sex: Male ? ADM/SER Dt: 09/04/18 ?Disch Dt: ? LOC: H.[facility] ? Ordering Phy: Sho,Nidal M MD ? Order #[id number] ? Carotid Ultrasound Bilateral ?? Shay Dobbins [...] 79% in diameter. ? NTS ? Job: [id number] ? Dictated By: Shay Dobbins MD ?? Dictated For: Shay Dobbins MD ? <Electronically signed by Shay Dobbins MD> ? 09/05/18721 ?? Resulting Agency Comment O Procedure Note Shay Dobbins MD - 09/05/2018 Patient Name: CURLY ANGELO #: [id number] Status: REG CLI D.O.B: 1955 Age: 62Sex: Male ADM/SER Dt: 09/04/18 [facility] Dt:LOC: [facility] Ordering Phy: Shawn Berkowitz MD Order #[id number] Carotid Ultrasound Bilateral Shay Dobbins MD Signed [...] carotid arteriesmeasuring 50-79% in diameter. NTS Job: [id number] Dictated By: Shay Dobbins MD Dictated For: [...] as of this encounter Care Teams Medical Director Occupational Health Relationship Specialty Start Date End Date Shawn Berkowitz MD [address] [facility] [address] [place] [address] [place] [address] PCP - General Internal Medicine 08/11/18 documented as of this encounter
--- OUTSIDE RECORDS SUMMARY | 2024-04-03 23:58 | XMS_ITS | Encounter Summary ---
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
--- OUTSIDE RECORDS SUMMARY | 2024-04-03 23:58 | XMS_ITS | Encounter Summary ---
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
--- OUTSIDE RECORDS SUMMARY | 2024-04-03 23:58 | XMS_ITS | Encounter Summary ---
Author Organization [facility] Address [address] [facility] [address] [place] [address] Care Team Providers Care Whey Department Operator Name Role Phone Shawn Berkowitz MD Primary Care Provider [phone] Reason for Visit * Reason Comments Follow-up 20 day follow on Rt arm pain - from a fall Encounter Details Date Type Department Care Team (Late st Contact Info) Description 07/13/2019 1:30 PM CDT Telemedicine [facility] Medical [facility] Internal Medicine [address] [facility] [address] [place] [address] Shawn Berkowitz MD [address] [place] [address] [address] [place] [address] Hemiparesis as late effect of [...] on file 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 During thevisit, I was located [address] [place] [address] and the patient was located at home. [...] CDT Associated Problem(s): Dorsalgia Managed by the OK * Assessment & Plan Note - Shawn [...] PSA 3.5 < OR = 4.0 ng/mL [facility] Comment: The total PSA value from [...] BLOOD ORDERABLES Final Result Performing Organization Address City/State/[facility] Co de Phone Number [facility] [employer] [address] [place] [address] * (ABNORMAL) Comprehensive metabolic panel (10/20/2019 9:35 AM CDT) Glucose 103(H) 65 - 99 mg/dL [facility] [place] Comment: ? Fasting reference interval For someone without known diabetes, a glucose value between 100 and 125 mg/dL is consistent with prediabetes and should be confirmed with a follow-up test. BUN 15 7 - 25 mg/dL [facility] [place] Creatinine 1.10 0.70 - 1.25 mg/dL [facility] [place] Comment: For patients >49 years of age, the reference limit for Creatinine is approximately 13% higher for people identified as -Grenadian. eGFR NON-AFR. TAJIK 70 > OR = 60 mL/min/1 .73m2 [facility] [place] EGFR 81 > OR = 60 mL/min/1 .73m2 [facility] [place] BUN/creat ratio NOT APPLICABLE 6 - 22 (calc) [facility] [place] Sodium 145 135 - 146 mmol/L [facility] [place] Potassium, pl 4.5 3.5 - 5.3 mmol/L [facility] [place] Chloride 107 98 - 110 mmol/L [facility] [place] CO2 29 20 - 32 mmol/L [facility] Calcium 9.4 8.6 - 10.3 mg/dL [facility] [place] Protein, sr 7.4 6.1 - 8.1 g/dL [facility] Albumin 4.0 3.6 - 5.1 g/dL [facility] [place] GLOBULIN 3.4 1.9 - 3.7 g/dL (calc) [facility] [place] Alb/glob ratio 1.2 1.0 - 2.5 (calc) [facility] [place] Bilirubin, total 0.6 0.2 - 1.2 mg/dL [facility] [place] Alk phos 96 35 - 144 U/L [facility] [place] AST 12 10 - 35 U/L [facility] [place] ALT (SGPT) 11 9 - 46 U/L [facility] [place] 10/20/2019 9:35 AM CDT 10/20/2019 9:39 AM CDT Narrative [facility] - 10/25/2019 3:13 PM CDT FASTING:YES FASTING: YES us Shawn Berkowitz MD LAB BLOOD ORDERABLES Final Result [facility] [address] [place] [id number] * (ABNORMAL) Lipid panel (10/20/2019 9:35 AM [...] LDL-C. Geo ARGUELLO et al. KELTON. 2013;310(19): 5189-1708 (http://education.[employer]/faq/BHT993) Chol/HDL ratio 2.0 <5.0 (calc) [facility] Non-HDL, (LDL+VLDL) 35 <130 mg/dL (calc) [facility] Comment: For patients with diabetes plus 1 major ASCVD risk factor, treating to a non-HDL-C goal of <100 mg/dL (LDL-C of <70 mg/dL) is considered a therapeutic option. 10/20/2019 9:35 AM CDT 10/20/2019 9:39 AM CDT [facility] - 10/25/2019 3:13 PM CDT FASTING:YES FASTING: YES Shawn Berkowitz MD LAB BLOOD ORDERABLES Final Result Performing Organization Address City/State/[facility] Co de Phone Number [facility] [address] [facility] [place] [address] * Levetiracetam level (10/20/2019 9:35 AM CDT) Pathologist [facility] LEVETIRACETAM 32.2 mcg/mL [facility] Comment: ? Reference Range: 12.0-46.0 ? Toxic level is not well ? established. Interpretation ? should include a clinical ? evaluation. ? For additional information, please refer to http://education.[employer]/faq/OTZ026 (This link is being provided for informational/educational purposes only.) This test was developed and its analytical performance characteristics have been determined by [employer]. It has not been cleared or approved by the FDA. This assay has been validated pursuant to the CLIA regulations and is used for clinical purposes. Blood specimen (specimen) 10/20/2019 9:35 AM CDT 10/20/2019 9:39 AM CDT [facility] - 10/25/2019 3:13 PM CDT FASTING:YES FASTING: YES Shawn Berkowitz MD LAB BLOOD ORDERABLES Final Result Performing Organization Address City/State/[facility] Co de Phone Number [facility] [address] [place] [address] documented in this encounter Visit Diagnoses Diagnosis [...] documented as of this encounter Care Teams Whey Department Operator Relationship Specialty Start Date End Date Shawn Berkowitz MD [facility] [facility] [place] [address] PCP - General Internal Medicine 08/11/18 documented as of this encounter
--- OUTSIDE RECORDS SUMMARY | 2024-04-03 23:58 | XMS_ITS | Encounter Summary ---
Author Organization [facility] Address [address] [facility] [address] [place] [address] Care Team Providers Care Coat Hanger Shaper Machine Operator Name Role Phone Shawn Berkowitz MD Primary Care Provider [phone] Reason for Visit * Reason Comments Follow-up Labs not done -CVA Hypertension Arm Pain right arm pain X 2 w eeks Fall X 2 weeks ago Encounter Details Date Type Department Care Team (Late st Contact Info) Description 06/23/2019 11:15 AM CDT Telemedicine [facility] Internal Medicine [address] [facility] [address] [place] [phone] [place] [address] [place] [address] [address] [place], [place] [phone] Pain of right upper extremity (Primary Dx); [...] on file 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
--- OUTSIDE RECORDS SUMMARY | 2024-04-03 23:58 | XMS_ITS | Encounter Summary ---
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 difficile Comment:Germ watcher auto flagging 01/15/2014 01/15/2014 documented as of this encounter Care Teams Spray Pilot Relationship Specialty Start Date End Date Shawn Berkowitz MD [address] [facility] [address] [place] [address] [place] [address] PCP - General Internal Medicine 08/11/18 documented as of this encounter
--- OUTSIDE RECORDS SUMMARY | 2024-04-03 23:58 | XMS_ITS | Encounter Summary ---
Author Organization [facility] Healthcare Address [address] [place] [address] Care Team Providers Care Lime Puller Name Role Phone Shawn Berkowitz MD Primary Care Provider [phone] Encounter Details Date Type Department Care Team (Late st Contact Info) Description 05/29/2020 1:15 PM LIEUTENANT GOVERNOR - 05/29/2020 5:30 PM LIEUTENANT GOVERNOR Emergency [address] [address] Juan Bradley MD [address] [place] [id number] Unknown, Notinfile Discharge Disposition: Discharge to home [...] on file Legal Sex Male 6:59 AM LIEUTENANT GOVERNOR Gender Identity Not on file Sexual Orientation Not on file documented as of this encounter Last Filed Vital Signs Vital Sign Reading Time Taken Comments Blood Pressure 106/82 05/29/2020 1:26 PM LIEUTENANT GOVERNOR Pulse 93 05/29/2020 1:26 PM LIEUTENANT GOVERNOR Temperature 36.6 ??C (97.8 ??F) 05/29/2020 1:26 PM CS T Respiratory Rate - - Oxygen Saturation 95% 05/29/2020 1:26 PM LIEUTENANT GOVERNOR Inhaled Oxygen Concentration - - Weight 77 kg (169 lb 12.1 oz) 05/29/2020 1:26 PM LIEUTENANT GOVERNOR Height - - Body Mass Index 24.36 [...] W/REFLEX TO CULTURE Routine 05/29/2020 2:16 PM LIEUTENANT GOVERNOR URINALYSIS AND REFLEX TO MICROSCOPIC AND CULTURE Routine 05/29/2020 2:16 PM LIEUTENANT GOVERNOR INFLUENZA A/B, RSV, AND COVID-19 PCR Routine 05/29/2020 2:00 PM LIEUTENANT GOVERNOR CBC WITH AUTO DIFFERENTIAL Routine 05/29/2020 1:55 PM LIEUTENANT GOVERNOR LIPASE Routine 05/29/2020 1:55 PM LIEUTENANT GOVERNOR COMPREHENSIVE METABOLIC PANEL Routine 05/29/2020 1:55 PM LIEUTENANT GOVERNOR XR CHEST 1 VIEW 05/29/2020 12:[address] ABDOMEN PELVIS W CONTRAST 05/29/2020 12:00 AM LIEUTENANT GOVERNOR documented in this encounter Results * (ABNORMAL) URINALYSIS, COMPLETE W/REFLEX TO CULTURE (05/29/2020 2:16 PM LIEUTENANT GOVERNOR) Ur Collection Type STRAIGHT CATH [facility] Ur Culture Indicated? C S NOT INDICATED [facility] Urine Color LA[place] YELLOW [facility] Urine Clarity Slightly-Sarah udy CLEAR [facility] Urine Glucose (UA) NORMAL NORMAL mg/dL [facility] Urine Bilirubin NEGATIVE NEGATIVE mg/dl [facility] Urine Ketones 5(A) NEGATIVE mg/dL [facility] Ur Specific Heppner 1.028(H) 1.005 - 1.025 [facility] Urine Blood 0.03(A) NEGATIVE mg/dl [facility] Urine pH 6.0 5.0 - 8.0 [facility] Urine Protein 30(A) NEGATIVE mg/dL [facility] Urine Urobilinogen 4(A) NORMAL mg/dL [facility] Urine Nitrite NEGATIVE NEGATIVE [facility] Ur Leukocyte Esterase NEGATIVE NEGATIVE Ian/ul [facility] Ur Microscopic Review Indicated or Ordered [facility] Urine RBC 11-20 0 - 2 /HPF [facility] Urine WBC 0-5 0 - 2 /HPF [facility] Urine Mucus Present /LPF [facility] Ur Squamous Epith Cells 1-5 /HPF [facility] 05/29/2020 2:16 PM LIEUTENANT GOVERNOR 05/29/2020 2:45 PM LIEUTENANT GOVERNOR Narrative [facility] - 05/29/2020 2:56 PM LIEUTENANT GOVERNOR Indication(s) for ordering ?? Pain-pelv/flank/suprapubc BW Straight catheter Resulting Agency Comment ER us Juan Bradley MD LAB URINE ORDERABLES F inal Result [facility] [address] [place] [address], [facility] [phone] * (ABNORMAL) Urinalysis reflex to microscopic and culture (05/29/2020 2:16 PM LIEUTENANT GOVERNOR) Ur Collection Type STRAIGHT CATH [facility] Ur Culture Indicated? C S NOT INDICATED [facility] Urine Color [facility] [facility] Urine Clarity Slightly-Sarah udy [facility] Urine Glucose (UA) NORMAL NORMAL mg/dL [facility] Urine Bilirubin NEGATIVE NEGATIVE mg/dl [facility] Urine Ketones 5(A) NEGATIVE mg/dL [facility] Ur Specific Heppner 1.028(H) 1.005 - 1.025 [facility] Urine Blood 0.03(A) NEGATIVE mg/dl [facility] Urine pH 6.0 5.0 - 8.0 [facility] Urine Protein 30(A) NEGATIVE mg/dL [facility] Urine Urobilinogen 4(A) NORMAL mg/dL [facility] Urine Nitrite NEGATIVE NEGATIVE [facility] Ur Leukocyte Esterase NEGATIVE NEGATIVE Ian/ul [facility] Ur Microscopic Review Indicated or Ordered [facility] Urine RBC 11-20 0 - 2 /HPF [facility] Urine WBC 0-5 0 - 2 /HPF [facility] Urine Mucus Present /LPF [facility] Ur Squamous Epith Cells 1-5 /HPF [facility] 05/29/2020 2:16 PM LIEUTENANT GOVERNOR 05/29/2020 2:45 PM LIEUTENANT GOVERNOR Narrative [facility] - 05/29/2020 2:56 PM LIEUTENANT GOVERNOR Indication(s) for ordering ?? Pain-pelv/flank/suprapubc BW Straight catheter Resulting Agency Comment ER Juan Bradley MD LAB MICROBIOLOGY - GEN ERAL ORDERABLES Final Result [address] [phone] * Influenza A/B, RSV, and COVID-19 PCR (05/29/2020 2:00 PM LIEUTENANT GOVERNOR) Influenza A RNA NEGATIVE NEGATIVE [facility] Influenza B RNA NEGATIVE NEGATIVE [facility] RSV RNA NEGATIVE NEGATIVE [facility] COVID-19 RNA NEGATIVE [facility] Comment: Testing was performed on the [employer] Xpert Xpress SARS-CoV-2 real-time RT-PCR platform under FDA Emergency Use Authorization. ??This test is validated only for appropriately collected nasopharyngeal swab specimens. ??A negative result does not preclude infection with COVID-19 and should not be used as the sole basis for treatment or other patient management decisions. 05/29/2020 2:00 PM LIEUTENANT GOVERNOR 05/29/2020 2:33 PM LIEUTENANT GOVERNOR Narrative [facility] - 05/29/2020 3:17 PM LIEUTENANT GOVERNOR [id number] Yes No No No No Unsure-Alt Mental Status Likely to be admitted Resulting Agency Comment ER Juan Bradley MD LAB MICROBIOLOGY - GEN ERAL ORDERABLES Final Result [address] [phone] * Lipase (05/29/2020 1:55 PM LIEUTENANT GOVERNOR) Lipase 16 13 - 60 U/L [facility] 05/29/2020 1:55 PM LIEUTENANT GOVERNOR 05/29/2020 1:58 PM LIEUTENANT GOVERNOR Narrative Resulting Agency Comment ER us Juan Bradley MD LAB BLOOD ORDERABLES F inal Result [facility] [address] [place], [place] [address] [place] [address] * (ABNORMAL) Comprehensive metabolic panel (05/29/2020 1:55 PM LIEUTENANT GOVERNOR) [facility] Sodium 143 135 - 145 mmol/L [facility] Potassium 3.3 3.3 - 5.1 mmol/L [facility] Chloride 105 96 - 108 mmol/L [facility] Carbon Dioxide 28 22 - 32 mmol/L [facility] Anion Gap 10 7 - 16 [facility] Glucose 102(H) 70 - 100 mg/dL [facility] BUN 17 8 - 25 mg/dL [facility] Creatinine 0.9 0.5 - 1.3 mg/dL [facility] Comment: NOTE: Estimated GFR (Cockroft-Gault) will NOT be calculated unless patient Height and Weight were entered. Also, Kidney Disease Stage (GFR) and Estimated GFR (Cockroft-Gault) will NOT be calculated if Creatinine result is <0.2. Kidney Disease Stage 90 mL/MIN [facility] Comment: NOTE; ??The GFR is an estimated [...] dialysis Calcium 9.6 8.6 - 10.3 mg/dL [facility] Total Protein 8.4(H) 6.4 - 8.3 g/dL [facility] Albumin 4.3 3.5 - 5.0 g/dL [facility] Globulin 4.1(H) 2.3 - 3.5 gm/dL [facility] Albumin/Globulin Ratio 1.0(L) 1.1 - 1.8 [facility] Total Bilirubin 0.6 0.0 - 1.2 mg/dL [facility] AST 15 0 - 40 U/L [facility] ALT 9 0 - 41 U/L [facility] Alkaline Phosphatase 80 40 - 129 U/L [facility] 05/29/2020 1:55 PM LIEUTENANT GOVERNOR 05/29/2020 1:58 PM LIEUTENANT GOVERNOR Narrative Resulting Agency Comment ER us Juan Bradley MD LAB BLOOD ORDERABLES F inal Result [facility] [address] [phone] * (ABNORMAL) CBC with auto differential (05/29/2020 1:55 PM LIEUTENANT GOVERNOR) WBC 10.8(H) 3.8 - 9.9 X10 3/ul [facility] RBC 3.62(L) 4.30 - 5.80 x10 6/ul [facility] Hemoglobin 12.3(L) 13.0 - 17.5 g/dL [facility] Hct 36.1(L) 38.9 - 50.3 % [facility] MCV 99.7(H) 81.3 - 96.4 fl [facility] MCH 34.0(H) 27.1 - 33.3 pg [facility] MCHC 34.1 32.3 - 35.7 g/dl [facility] RDW 12.4 11.1 - 14.9 % [facility] Plt Count 383 150 - 400 x10 3/ul [facility] MPV 9.3 9.1 - 12.3 fl [facility] Neut % 85.0 % [facility] Immature Gran % 0.2 % [facility] Lymph % 7.3 % [facility] Hardeman % 6.5 % [facility] Eos % 0.4 % [facility] AUTO BASO % 0.6 % [facility] NEUTROPHIL ABS # 9.2(H) 1.7 - 6.5 x10 3/ul [facility] Immature Gran # 0.0 0.0 - 0.1 x10 3/ul [facility] Absolute Lymphs (auto) 0.8 0.8 - 3.3 x10 3/ul [facility] Absolute Monos (auto) 0.7 0.2 - 0.8 x10 3/ul [facility] Absolute Eos (auto) 0.0 0.0 - 0.5 x10 3/ul [facility] BASOPHIL ABS # 0.1 0.0 - 0.1 x10 3/ul [facility] Nucleat RBC Rel Count 0.0 #/100WBC [facility] NRBC abs 0.00 0.00 - 0.01 x10 3/ul [facility] Absolute Neutrophils 9,200(H) 200 - 8,000 /ul [facility] 05/29/2020 1:55 PM LIEUTENANT GOVERNOR 05/29/2020 1:58 PM LIEUTENANT GOVERNOR Narrative Resulting Agency Comment ER us Juan Bradley MD LAB BLOOD ORDERABLES F inal Result [facility] [address] [place] [address], [facility] [phone] * CT Abdomen Pelvis W Contrast (05/29/2020 12:00 AM LIEUTENANT GOVERNOR) Anatomical Region Laterality Modality Body N/A Computed Tomogra phy 05/29/2020 3:00 PM LIEUTENANT GOVERNOR Narrative 05/29/2020 3:06 PM LIEUTENANT GOVERNOR Patient Name: CURLY ANGELO ?Ordering Dr: Juan Bradley MD ?? D.O.B: 1955 ? Exam Date: 05/29/20 ?? 0000 ?? Age: 64 ?Sex: Male ? MR#: [id number] ?? Loc: ? RADIOLOGY REPORT ?? Order #[id number] ?? CT Scan ? CT Abd/Pelvis W [...] 3:06 PM ?? T: ? Report ID: [id number] ?? Reading Location: ??[id number] ? REPORT ELECTRONICALLY SIGNED IN OTHER VENDOR SYSTEM ?? Resulting Agency Comment E Procedure Note Diego Hagen MD - 05/29/2020 Patient Name: CURLY ANGELO Dr: Juan Bradley MD, D.O.B: 1955 Exam Date: 05/29/20 0000 Age: 64 Sex: Male MR#: [id number] Loc: [facility]#: [id number] RADIOLOGY REPORT Order #[id number] CT Scan CT Abd/Pelvis W IV Contrast [...] - Electronically signed by Diego Hagen M.D. ID T: Report ID: [id number] Reading Location: [place] [address] REPORT ELECTRONICALLY SIGNED IN OTHER VENDOR SYSTEM us Juan Bradely MD IMG CT PROCEDURES Myrna l Result * XR Chest 1 View (05/29/2020 12:00 AM LIEUTENANT GOVERNOR) Anatomical Region Laterality Modality Body, Chest N/A Radiographic Tawanna ging 05/29/2020 2:25 PM LIEUTENANT GOVERNOR Narrative 05/29/2020 2:26 PM LIEUTENANT GOVERNOR Patient Name: CURLY ANGELO ?Ordering Dr: Juan Bradley MD ?? D.O.B: 1955 ? Exam Date: // ?? 0000 ?? Age: 64 ?Sex: Male ? MR#: [id number] ?? Loc: ? RADIOLOGY REPORT ?? Order #[id number] ?? Radiology ? Chest 1 View Portable ? Signed ?? EXAM DESCRIPTION: ?? Chest 1 View Portable ? REASON FOR STUDY: ?? ONSET YESTERDAY OF NAUSEA AND VOMITING PER ENVIRONMENTAL CHANGE ANALYST, PT ?? PAST HX OF STROKE WHICH [...] 2:26 PM ?? T: ? Report ID: [id number] ?? Reading Location: ??[id number] ? REPORT ELECTRONICALLY SIGNED IN OTHER VENDOR SYSTEM ?? Resulting Agency Comment E Procedure Note Rudolph Boone MD - 05/29/2020 Patient Name: SHAILESHCURLY Dr: Juan Bradley MD D.O.B: 1955 Exam Date: 05/29/20 0000 Age: 64 Sex: Male MR#: [id number] Loc: RADIOLOGY REPORT Order #[id number] Radiology Chest 1 View Portable Signed EXAM DESCRIPTION: Chest 1 View Portable REASON FOR STUDY: ONSET YESTERDAY OF NAUSEA AND VOMITING PER ENVIRONMENTAL CHANGE ANALYST,PT PAST HX OF STROKE WHICH HAS AFFECTED [...] 2:26 PM - Electronically signed by Rudolph MISHRA T: Report ID: [id number] Reading Location: [id number] REPORT ELECTRONICALLY SIGNED IN OTHER VENDOR SYSTEM [...] documented as of this encounter Care Teams Lime Puller Relationship Specialty Start Date End Date Shawn Berkowitz MD [address] [facility] [address] [address] PCP - General Internal Medicine 08/11/18 documented as of this encounter
--- OUTSIDE RECORDS SUMMARY | 2024-04-03 23:58 | XMS_ITS | Encounter Summary ---
Author Organization [facility] Address [address] [facility] [address] [place] [address] Care Team Providers Care Full Service Supervisor Name Role Phone Unavailable Primary Care Provider Unavailabl e Encounter Details Date Type Department Care Team (Late st Contact Info) Description 07/30/2018 Telephone [facility] Internal Medicine [address] [facility] [address] [place] [address] [place] [address] [place] [address] [address] [place], [place] [id number] Social History Tobacco Use Types Packs/Day Years Used Date Smoking Tobacco: Never Assessed Sex and Gender Information Value Date Recorded Sex Assigned at Not on file Legal Sex Male 6:59 AM DEBEAKER Gender Identity Not on file Sexual Orientation [...] haven't had any in a long time [facility] documented in this encounter Plan of Treatment Not on file documented as of this encounter Visit Diagnoses Not on filedocumented in this encounter Additional Health Concerns 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 difficile Comment:Germ watcher auto flagging 01/15/2014 01/15/2014 documented as of this encounter
--- OUTSIDE RECORDS SUMMARY | 2024-04-03 23:58 | XMS_ITS | Encounter Summary ---
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 Carl as of 05/29/20-off Dr. Berkowitz's panel- Linda Ann RN, BSN [facility] Cigarette Packer for High Risk [phone] ING IN MACHINE TENDER HELPER * Telephone Encounter - Linda Ann RN - 05/30/2020 12:54 PM DRAWING IN MACHINE TENDER HELPER [facility]- ER 05/29/20- [facility]- recent exposure to [...] more information - Linda Ann RN, BSN [facility] Cigarette Packer for High Risk [phone] ING IN MACHINE TENDER HELPER ING IN MACHINE TENDER HELPER documented in this encounter Plan of Treatment Not on file documented as of this encounter Visit Diagnoses Not on filedocumented in this encounter Additional Health Concerns 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 difficile Comment:Germ watcher auto flagging 01/15/2014 01/15/2014 documented as of this encounter Care Teams Core Driller Relationship Specialty Start Date End Date Shawn Berkowitz MD [address] [facility] [address] [place] [address] [place] [address] PCP - General Internal Medicine 08/11/18 documented as of this encounter
--- OUTSIDE RECORDS SUMMARY | 2024-04-03 23:58 | XMS_ITS | Encounter Summary ---
Author Organization [facility] Medical Group Address [address] [facility][note 3] [address] [place] [address] Care Team Providers Care Sewage Disposal Engineer Name Role Phone Shawn Berkowitz MD Primary Care Provider [phone] Reason for Visit * Reason Comments Follow-up on HTN,HLD,Depressio n - no labs great toe nails large toe nails look like they might fall off Encounter Details Date Type Department Care Team (Late st Contact Info) Description 08/25/2018 1:15 PM CDT Office Visit [facility] Internal Medicine [address] [facility] [address] [place] [address] [place] [address] [place] [address] [address] [place] [address] Hemiparesis as late effect of [...] on file 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 levETIRAcetam (KEPPRA) 500 mg [...] file Gets together: Not on file Attends restorationism service: Not on file Active member of [...] 36.7 ??C (98.1 ??F) (Tympanic) Resp 16 [id number]% There is no height or weight on [...] regular basis. Will continue to monitor Seizure ([facility]) Assessment & Plan: Controlled on Keppra Benign prostatic hyperplasia without lower urinary tract symptoms Assessment & Plan: Controlled on Flomax Stenosis of left carotid artery Aphasia following cerebral infarction - US Carotids Duplex Bilateral; Future Onychomycosis Assessment & Plan: Will make him a referral to see a sheet metal worker for further evaluation Orders: - Ambulatory referral to Podiatry; Future documented in this encounter Miscellaneous Notes * Assessment & Plan Note - Shawn Berkowitz MD - 08/25/2018 3:53 PM CDT Associated Problem(s): Onychomycosis Will make him a referral to see a sheet metal worker for further evaluation * Assessment & Plan [...] documented as of this encounter Care Teams Sewage Disposal Engineer Relationship Specialty Start Date End Date Shawn Berkowitz MD [address] [facility] [place] [address] PCP - General Internal Medicine 08/11/18 documented as of this encounter
--- OUTSIDE RECORDS SUMMARY | 2024-04-03 23:58 | XMS_ITS | Encounter Summary ---
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
--- OUTSIDE RECORDS SUMMARY | 2024-04-03 23:58 | XMS_ITS | Encounter Summary ---
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 Gender Identity Not on file Sexual Orientation Not on file documented as of this encounter Miscellaneous Notes * Telephone Encounter - iLnda Ann RN - 04/22/2020 6:29 PM CST [facility]- 04/24/20 appt- gap in care- depression/fall screen- shoaib- Linda Ann RN,BSN [facility] Uncrater for High Risk [phone] ORK INFRASTRUCTURE ARCHITECT documented in this encounter Plan of Treatment Not on file documented as of this encounter Visit Diagnoses Not on filedocumented in this encounter Additional Health Concerns 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 difficile Comment:Germ watcher auto flagging 01/15/2014 01/15/2014 documented as of this encounter Care Teams Stockroom Worker Relationship Specialty Start Date End Date Shawn Berkowitz MD [address] [facility] [address] [place] [address] [place] [address] PCP - General Internal Medicine 08/11/18 documented as of this encounter
--- OUTSIDE RECORDS SUMMARY | 2024-04-03 23:58 | XMS_ITS | Encounter Summary ---
Author Organization [facility] Facility Care Team Providers Care Vp Project Name Role Phone Shawn Berkowitz MD Primary Care Provider [phone] Encounter Details Date Type Department Care Team (Latest Contact Info) Description 02/26/2016 Orders Only [facility] CLINCONV ProviderMirna MD [address] [place] [address] Social History Tobacco Use Types Packs/Day Years Used Date Smoking Tobacco: Never Assessed Sex and Gender Information Value Date Recorded Sex Assigned at Not on file Legal Sex Male 6:59 AM NUISANCE ANIMAL DAMAGE CONTROL AGENT Gender Identity Not on file Sexual Orientation Not on file documented as of this encounter Plan of Treatment Not on file documented as of this encounter Procedures Procedure Name Priority Date/Time Associated Diagnosis Comments PROCEDURE - RESULT 02/27/2016 12 :00 AM NUISANCE ANIMAL DAMAGE CONTROL AGENT documented in this encounter Results * PROCEDURE - RESULT (02/27/2016 12:00 AM NUISANCE ANIMAL DAMAGE CONTROL AGENT) Narrative 02/27/2016 12:00 AM NUISANCE ANIMAL DAMAGE CONTROL AGENT Ordered by an unspecified provider. Historical Provider Final Res ult documented in this encounter Visit Diagnoses Not on filedocumented in this encounter Additional Health Concerns 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 difficile Comment:Germ watcher auto flagging 01/15/2014 01/15/2014 documented as of this encounter Care Teams Vp Project Relationship Specialty Start Date End Date Shawn Berkowitz MD [address] [address] PCP - General Internal Medicine 08/11/18 documented as of this encounter
--- OUTSIDE RECORDS SUMMARY | 2024-04-03 23:58 | XMS_ITS | Encounter Summary ---
Author Organization [facility] Healthcare Address [address] [place] [address] Care Team Providers Care Explosion Welder Name Role Phone Unavailable Primary Care Provider Unavailabl e Encounter Details Date Type Department Care Team (Latest Contact Info) Description 02/26/2016 12:54 PM BALLOON SANDER Hospital Encounter [facility] Shawn Pearson MD [address] [facility] [address] [place] [address] [place] [id number] Convulsions (CMS/HCC) Social History Tobacco Use Types Packs/Day Years Used Date Smoking Tobacco: Never Assessed Sex and Gender Information Value Date Recorded Sex Assigned at Not on file Legal Sex Male 6:59 AM BALLOON SANDER Gender Identity Not on file Sexual Orientation Not on file documented as of this encounter Plan of Treatment Not on file documented as of this encounter Procedures Procedure Name Priority Date/Time Associated Diagnosis Comments EEG Routine 02/26/2016 1:00 PM BALLOON SANDER SCAN - NEUROLOGY 02/26/2016 12:0 0 AM BALLOON SANDER documented in this encounter Results * EEG (02/26/2016 1:00 PM BALLOON SANDER) Anatomical Region Laterality Modality Other 02/26/2016 1:00 PM BALLOON SANDER Impressions 02/27/2016 11:05 AM BALLOON SANDER ??Abnormal EEG because of slow and disorganized activity from left hemisphere. ??Occasional slow spikes were also seen from left frontal leads. Seizures could be a risk factor in this patient because of asymmetry and sharp activity as described above. NTS Job: [id number] Dictated By: Sheikh Mendoza MD Dictated For: ??MD Mendoza [EOD] Narrative 02/27/2016 11:05 AM BALLOON SANDER DATE OF SERVICE: 02/26/2016 EEG was done [...] andsharp activity as described above. NTS Job: [id number] Dictated By: Sheikh Mendoza MD Dictated For: Sheikh Mendoza MD [EOD] Shawn Berkowitz MD NEUROLOGY ORDERABLES Final Result * SCAN - NEUROLOGY (02/26/2016 12:00 AM BALLOON SANDER) Anatomical Region Laterality Modality Other Narrative 02/26/2016 12:00 AM BALLOON SANDER Ordered by an unspecified provider. Historical Provider [...]
--- OUTSIDE RECORDS SUMMARY | 2024-04-03 23:58 | XMS_ITS | Encounter Summary ---
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
--- OUTSIDE RECORDS SUMMARY | 2024-04-03 23:58 | XMS_ITS | Encounter Summary ---
Author Organization [facility] Healthcare Address [address] [place] [address] Care Team Providers Care Production Wood Craftsman Name Role Phone Shawn Berkowitz MD Primary Care Provider [phone] Encounter Details Date Type Department Care Team (Late st Contact Info) Description 03/03/2019 10:25 AM CUSTOM MILLER - 03/30/2019 11:59 PM CUSTOM MILLER Hospital Encounter [facility] INTERIM Shawn Berkowitz MD [address] [facility] [address] [address] Social History Tobacco Use Types Packs/Day Years [...] on file Legal Sex Male 6:59 AM CUSTOM MILLER Gender Identity Not on file Sexual Orientation [...] documented as of this encounter Care Teams Production Wood Craftsman Relationship Specialty Start Date End Date Shawn Berkowitz MD [address] [facility] [address] [place] [address] [place] [address] PCP - General Internal Medicine 08/11/18 documented as of this encounter
--- OUTSIDE RECORDS SUMMARY | 2024-04-03 23:58 | XMS_ITS | Encounter Summary ---
Author Organization [facility] Medical Group Address [address] [facility] [address] [place] [address] Care Team Providers Care Maintenance Technician 2Nd Shift Name Role Phone Unavailable Primary Care Provider Unavailabl e Reason for Visit * Reason Onset Date Comments Med Refill 07/08/2018 needing refills sent to [facility] Encounter Details Date Type Department Care Team (Late st Contact Info) Description 07/08/2018 Telephone [facility] Medical [facility] Internal Medicine [address] [facility] [address] [place] [address] [place] [address] [place] [address] [address] [place] [address] Med Refill (needing refills sent to [facility]) Social History Tobacco Use Types Packs/Day Years Used Date Smoking Tobacco: Never Assessed Sex and Gender Information Value Date Recorded Sex Assigned at Not on file Legal Sex Male 6:59 AM INKER Gender Identity Not on file Sexual Orientation [...] 07/08/2018 6:49 PM CDT Refills sent to [facility] [place] 08/12/2018 documented in this encounter Plan of [...]
--- OUTSIDE RECORDS SUMMARY | 2024-04-03 23:58 | XMS_ITS | Encounter Summary ---
Author Organization [facility] Healthcare Address [address] [place] [address] Care Team Providers Care Group Segment Consultant Name Role Phone Unavailable Primary Care Provider Unavailabl e Encounter Details Date Type Department Care Team (Late st Contact Info) Description 12/10/2017 1:55 PM CDT Hospital Encounter [facility] Shawn Pearson MD [address] [facility] [address] [place], [place] [id number] Disorder of bone Social History Tobacco Use Types Packs/Day Years Used Date Smoking Tobacco: Never Assessed Sex and Gender Information Value Date Recorded Sex Assigned at Not on file Legal Sex Male 6:59 AM RAIL WALKER Gender Identity Not on file Sexual Orientation [...] Electronically signed by Diego Hagen M.D. [place] D: ??12/10/2017 2:35 PM T: Report ID: [id number] Reading Location: ??[id number] [EOD] Narrative 12/10/2017 2:38 PM CDT EXAM [...] signed by Diego WHITMAN T: Report ID: [id number] Reading Location: [id number] [EOD] Shawn Berkowitz MD IMG XR PROCEDURES [...]
--- OUTSIDE RECORDS SUMMARY | 2024-04-03 23:58 | XMS_ITS | Encounter Summary ---
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
--- OUTSIDE RECORDS SUMMARY | 2024-04-03 23:58 | XMS_ITS | Encounter Summary ---
Author Organization [facility] Healthcare Address [address] [place] [address] Care Team Providers Care Coordinate Measuring Machine Operator Name Role Phone Shawn Berkowitz MD Primary Care Provider [phone] Encounter Details Date Type Department Care Team (Late st Contact Info) Description 11/17/2020 Telephone [facility] Physicians [address] Medical Office [address] [place] [address] Golden Chowdary MD [address] [place] [address] Social History Tobacco Use Types [...] on file Legal Sex Male 6:59 AM PRODUCTION SERVICE MANAGER Gender Identity Not on file Sexual [...] documented as of this encounter Care Teams Coordinate Measuring Machine Operator Relationship Specialty Start Date End Date Shawn Berkowitz MD [address] [facility] [place] [address] PCP - General Internal Medicine 08/11/18 documented as of this encounter
--- OUTSIDE RECORDS SUMMARY | 2024-04-03 23:58 | XMS_ITS | Encounter Summary ---
Author Organization [facility] Medical Group Address [address] [facility] [address] [place] [address] Care Team Providers Care Cat Sitter Name Role Phone Shawn Berkowitz MD Primary Care Provider [phone] Encounter Details Date Type Department Care Team (Late st Contact Info) Description 08/31/2018 Telephone [facility] Internal Medicine [address] [facility] [address] [place] [address] Shawn Berkowitz MD [address] [place] [address] [address] [place] [address] Social History Tobacco Use Types [...] on file Legal Sex Male 6:59 AM TREATING INSPECTOR Gender Identity Not on file Sexual Orientation [...] documented as of this encounter Care Teams Cat Sitter Relationship Specialty Start Date End Date Shawn Berkowitz MD [address] [facility] [address] [place] [address] [place] [address] PCP - General Internal Medicine 08/11/18 documented as of this encounter
--- OUTSIDE RECORDS SUMMARY | 2024-04-03 23:58 | XMS_ITS | Encounter Summary ---
Author Organization [facility] Address [address] [place] [address] Phone Care Team Providers Care Hris Developer Name Role Phone Shawn Berkowitz MD Primary Care Provider [phone] Reason for Visit * Reason Onset Date Comments quaker pain 10/26/2018 Encounter Details Date Type Department Care Team (Late st Contact Info) Description 10/26/2018 Telephone [facility] [address] [facility] 6th [place] [address] [place] [address] Golden Chowdary MD [address] [place] [address] quaker pain Social History Tobacco Use Types Packs/Day [...] on file Legal Sex Male 6:59 AM PET COUNSELOR Gender Identity Not on file Sexual Orientation Not on file documented as of this encounter Miscellaneous Notes * Telephone Encounter - Melissa Seo MA - 10/29/2018 8:33 AM CDT Spoke with the and she states that the patient PCP Dr. Berkowitz did a Doppler on the patient neck and the results are normal Patient was informed that speak with the PCP regarding the quaker pain as well... * Telephone Encounter - Melissa Seo MA - 10/28/2018 9:36 AM CDT Called patient LMOM for the patient to call the office * Telephone Encounter - Kylie Ann NP - 10/27/2018 3:51 PM CDT lvm recommending patient to be evaluated by PMD for the quaker pain - as the bone flap was placed nearly 5 years ago 01/11/14 and most likely not related to the quaker pain. * Telephone Encounter - Melissa Seo MA - 10/26/2018 4:24 PM CDT Patient called the office and stated that she is aware that the patient last seen ID in 2014 reports that the patient is having some issues with the bone flap replace, states that the patient is currently having pain in the quaker of head, patient states that the patient feel in pain management also a year ago Patient states that she is worried about the patient and the quaker pain Patient stated that she will be [...] documented as of this encounter Care Teams Hris Developer Relationship Specialty Start Date End Date Shawn Berkowitz MD [facility] [place] [address] PCP - General Internal Medicine 08/11/18 documented as of this encounter
--- OUTSIDE RECORDS SUMMARY | 2024-04-03 23:58 | XMS_ITS | Encounter Summary ---
Author Organization [facility] Medical Group Address [address] [facility] [address] [place] [address] Care Team Providers Care Manager Income Tax Name Role Phone Shawn Berkowitz MD Primary Care Provider [phone] Reason for Visit * Reason Comments Follow-up 3 month f/u htn,CVA. labs done today Encounter Details Date Type Department Care Team (Late st Contact Info) Description 03/03/2019 10:45 AM PROPERTY CLAIMS MANAGER Office Visit [facility] [facility] Internal Medicine [address] [facility] [address] [place] [address] Shawn Berkowitz MD [address] [place] [address] [address] [place] [address] Hemiparesis as late effect of cerebrovascular accident [...] on file Legal Sex Male 6:59 AM PROPERTY CLAIMS MANAGER Gender Identity Not on file Sexual Orientation Not on file documented as of this encounter Last Filed Vital Signs Vital Sign Reading Time Taken Comments Blood Pressure 106/60 03/03/2019 11:14 AM PROPERTY CLAIMS MANAGER Pulse 53 03/03/2019 11:14 AM PROPERTY CLAIMS MANAGER Temperature 36.1 ??C (97 ??F) 03/03/2019 11:14 AM PROPERTY CLAIMS MANAGER Respiratory Rate 18 03/03/2019 11:14 AM PROPERTY CLAIMS MANAGER Oxygen Saturation 97% 03/03/2019 11:14 AM PROPERTY CLAIMS MANAGER Inhaled Oxygen Concentration - - Weight 76.2 kg (168 lb) 03/03/2019 11:14 AM PROPERTY CLAIMS MANAGER Height - - Body Mass Index 24.11 [...] file Gets together: Not on file Attends latter-day service: Not on file Active member of [...] to follow up for that at the [facility] Pure hypercholesterolemia Assessment & Plan: Controlled on [...] tablet (40 mg total) by mouth daily ERTY CLAIMS MANAGER documented in this encounter Miscellaneous Notes * Assessment & Plan Note - Shawn Berkowitz MD - 03/03/2019 12:11 PM PROPERTY CLAIMS MANAGER Associated Problem(s): Gastroesophageal reflux disease without esophagitis Will stop Zantac and start him on Pepcid 40 mg daily ERTY CLAIMS MANAGER * Assessment & Plan Note - Shawn Berkowitz MD - 03/03/2019 12:11 PM PROPERTY CLAIMS MANAGER Associated Problem(s): Benign prostatic hyperplasia without lower urinary tract symptoms Asymptomatic ERTY CLAIMS MANAGER * Assessment & Plan Note - Shawn Berkowitz MD - 03/03/2019 12:10 PM PROPERTY CLAIMS MANAGER Associated Problem(s): Seizure (HCC) Controlled on Keppra and will obtained Keppra level ERTY CLAIMS MANAGER * Assessment & Plan Note - Shawn Berkowitz MD - 03/03/2019 12:10 PM PROPERTY CLAIMS MANAGER Associated Problem(s): HLD (hyperlipidemia) (Deleted) Controlled on current medications. Continue low-fat diet. Will continue to monitor . ERTY CLAIMS MANAGER * Assessment & Plan Note - Shawn Berkowitz MD - 03/03/2019 12:10 PM PROPERTY CLAIMS MANAGER Associated Problem(s): Essential (primary) hypertension Continue current medications. Discussed low-salt diet. Discussed exercise on regular basis. Will continue to monitor ERTY CLAIMS MANAGER * Assessment & Plan Note - Shawn Berkowitz MD - 03/03/2019 12:10 PM PROPERTY CLAIMS MANAGER Associated Problem(s): Dorsalgia The patient with history of chronic back pain and he was advised to follow up for that at the [facility] ERTY CLAIMS MANAGER * Assessment & Plan Note - Shawn Berkowitz MD - 03/03/2019 12:10 PM PROPERTY CLAIMS MANAGER Associated Problem(s): Recurrent major depressive disorder, in full remission (CMS/HCC) (HCC) (Deleted) Controlled on Prozac ERTY CLAIMS MANAGER * Assessment & Plan Note - Shawn Berkowitz MD - 03/03/2019 12:09 PM PROPERTY CLAIMS MANAGER Associated Problem(s): Hemiparesis as late effect of cerebrovascular accident (CVA) (CMS/HCC) (HCC) Left-sided weakness secondary to all CVA with no change. He is maintained on aspirin daily. ERTY CLAIMS MANAGER documented in this encounter Plan of Treatment [...] documented as of this encounter Care Teams Manager Income Tax Relationship Specialty Start Date End Date Shawn Berkowitz MD [address] [facility] [address] [place] [place] [address] PCP - General Internal Medicine 08/11/18 documented as of this encounter
--- OUTSIDE RECORDS SUMMARY | 2024-04-03 23:58 | XMS_ITS | Encounter Summary ---
Author Organization [facility] Medical Group Address [address] [facility] [address] [place] [address] Care Team Providers Care Computed Tomography Technician Name Role Phone Shawn Berkowitz MD Primary Care Provider [phone] Reason for Visit * Reason Comments Follow-up 3 mo follow up on [address],Dyslipidemai,Hx CVA - no labs Urinary Symptom frequent urination - few accidents Sinus Problem chest congestion at night x 1 week Encounter Details Date Type Department Care Team (Late st Contact Info) Description 01/24/2020 11:30 AM CDT Office Visit [facility] Medical [facility] Internal Medicine [address] [facility] [address] [place] [address] Shawn Berkowitz MD [address] [place] [address] [address] [place] [address] Hemiparesis as late effect of [...] on file Legal 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 levETIRAcetam (KEPPRA) 500 mg [...] file Gets together: Not on file Attends advent service: Not on file Active member of [...] as late effect of cerebrovascular accident (CVA) ([facility]) (Primary) Assessment & Plan: No [...] CDT Associated Problem(s): Dorsalgia Managed by the [place] physician * Assessment & Plan Note - [...] as late effect of cerebrovascular accident (CVA) ([facility]) (HCC)- Primary Essential (primary) hypertension Unspecified essential hypertension Benign prostatic hyperplasia without lower urinary tract symptoms Dyslipidemia Other and unspecified hyperlipidemia Smoking Tobacco use disorder Seizure (HCC) Other convulsions Recurrent major depressive disorder, in full remission (CMS/HCC) (HCC) Encounter for immunization Seizure disorder ([facility]) (HCC) Unspecified epilepsy without mention of intractable [...] documented as of this encounter Care Teams Computed Tomography Technician Relationship Specialty Start Date End Date Shawn Berkowitz MD [address] [facility] [address] [place] [place] [address] PCP - General Internal Medicine 08/11/18 documented as of this encounter
--- OUTSIDE RECORDS SUMMARY | 2024-04-03 23:58 | XMS_ITS | Encounter Summary ---
Author Organization [facility] Medical [facility] Address [address] [facility] [address] [place] [address] Care Team Providers Care Venetian Blind Cleaner Name Role Phone Shawn Berkowitz MD Primary Care Provider [phone] Encounter Details Date Type Department Care Team (Late st Contact Info) Description 08/22/2018 Orders Only [facility] Internal Medicine [address] [facility] [address] [place] [address] Janeen Alba MA Social History Tobacco Use Types Packs/Day Years Used Date Smoking Tobacco: Never Assessed AUDIT-C Answer Date Recorded Frequency of Alcohol Consumption Never 08/25/2018 Average Number of Drinks Not on file 019 Frequency of Binge Drinking Not on file 07/30 Sex and Gender Information Value Date Recorded Sex Assigned at Not on file 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
--- OUTSIDE RECORDS SUMMARY | 2024-04-03 23:58 | XMS_ITS | Encounter Summary ---
Author Organization [facility] Healthcare Address [address] [place] [address] Care Team Providers Care Hospital Scientist Name Role Phone Unavailable Primary Care Provider Unavailabl e Encounter Details Date Type Department Care Team (Latest Contact Info) Description 12/22/2017 11:01 AM CDT Hospital Encounter [facility] Shawn Pearson MD [address] 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 T: Report ID: [id number] Reading Location: [id number] [EOD] us Shawn Berkowitz MD IMG NM [...]
--- OUTSIDE RECORDS SUMMARY | 2024-04-03 23:58 | XMS_ITS | Encounter Summary ---
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
--- OUTSIDE RECORDS SUMMARY | 2024-04-03 23:58 | XMS_ITS | Encounter Summary ---
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 [place] [address] PCP - General Internal Medicine 08/11/18 documented as of this encounter
--- OUTSIDE RECORDS SUMMARY | 2024-04-03 23:58 | XMS_ITS | Encounter Summary ---
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 Therapeutic Range: ??12-46 ug/mL ?Toxic: ??Not well Established ?? Pharmacokinetics of levetiracetam are affected by renal ?? function. Adverse effects may include somnolence, weakness, ?? headache and vomiting. ?? Performed by [employer], ?? [address], [facility] [place] [address] ?? [email or web address], Aurelio Menjivar MD, Lab. Director ?? 09/16/2016 10:0 4 AM CDT 09/16/2016 10:33 AM CDT us Shawn Berkowitz MD LAB BLOOD ORDERABLES Final Result [facility] HISTORICAL RESULTS * (ABNORMAL) Lipid panel (09/16/2016 [...] Cholesterol, Calc 51 0 - 130 mg/dL Comment:High Risk > 159 mg/d L Cholesterol/HDL Ratio 3.1 Comment: Cholesterol / HDL Ratio 3.5:1 or less is desirable. Cholesterol / HDL Ratio greater than 5:1 is considered higher risk for developing heart disease. 09/16/2016 10:0 4 AM CDT 09/16/2016 10:33 AM CDT Narrative [facility] HISTORICAL RESULTS - 09/16/2016 11:01 AM CDT 12 HOURS FASITNG us Shawn Berkowitz MD LAB BLOOD ORDERABLES Final Result [facility] HISTORICAL RESULTS * (ABNORMAL) Comprehensive metabolic panel (09/16/2016 10:04 AM CDT) Sodium 142 135 - 145 mmol/L Potassium 3.9 3.3 - 5.1 mmol/L Chloride 102 96 - 108 mmol/L Carbon Dioxide 25 22 - 32 mmol/L Anion Gap 15 7 - 16 Glucose 104(H) 70 - 100 mg/dL BUN 23 8 - 23 mg/dL Creatinine 1.2 0.5 - 1.3 mg/dL Comment: [...] 8.8 - 10.2 mg/dL 09/16/2016 11:01 AM [facility] [employer] HISTORICAL RESULTS Total Protein 8.9(H) 6.4 - 8.3 g/dL 09/16/2016 11:01 AM [facility] [employer] [facility] RES[facility] Albumin 4.3 3.5 - 5.2 g/dL 09/16/2016 11:01 AM [facility] [employer] [facility] RESULTS Globulin 4.6(H) 2.3 - 3.5 gm/dL 09/16/2016 11:01 AM [facility] Albumin/Globulin Ratio 0.9(L) 1.1 - 1.8 09/16/2016 11:01 AM [facility] Total Bilirubin 0.3 0.0 - 1.2 mg/dL 09/16/2016 11:01 AM [facility] [employer] [facility]ISTOR[facility] RESULTS AST 13 0 - 40 U/L 09/16/2016 11:01 AM [facility] ALT 11 0 - 41 U/L 09/16/2016 11:01 AM [facility] Alkaline Phosphatase 105 40 - 129 U/L 09/16/2016 11:01 AM [facility] 09/16/2016 10:0 4 AM CDT 09/16/2016 10:33 AM [facility] Narrative 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 difficile Comment:Germ watcher auto flagging 01/15/2014 01/15/2014 documented as of this encounter
--- OUTSIDE RECORDS SUMMARY | 2024-04-03 23:58 | XMS_ITS | Encounter Summary ---
Author Organization [facility] Address [address] [place] [address] Care Team Providers Care Refrigeration Technician Name Role Phone Shawn Berkowitz MD Primary Care Provider [phone] Reason for Visit * Reason Comments Follow-up 3 month f/u - no Lab s - Right eye redness Hypertension Hyperlipidemia Migraine Arm Pain right Depression Encounter Details Date Type Department Care Team (Late st Contact Info) Description 11/25/2018 10:15 AM CDT Office Visit [facility] Internal Medicine 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 Hyperlipidemia ??? Hypertension ??? Stroke (CMS/[facility]) Past Surgical History: Procedure Laterality Date ??? [...] file Gets together: Not on file Attends moravian service: Not on file Active member of [...] [facility] Other orders - FLUoxetine (PROzac) 40 mg [...] [facility] with [facility] * Assessment & Plan Note - Shawn [...] Comments LEVETIRACETAM LEVEL Routine 03/03/2019 10:39 AM BLENDING MACHINE FEEDER Seizure (CMS/HCC) LIPID PANEL Routine 03/03/2019 10:39 AM BLENDING MACHINE FEEDER Pure hypercholesterolemia COMPREHENSIVE METABOLIC PANEL Routine 03/03/2019 10:39 AM BLENDING MACHINE FEEDER Pure hypercholesterolemia DEXA SCAN Routine 12/22/2017 COLONOSCOPY Routine 07/25/2017 documented in this encounter Results * Levetiracetam level (03/03/2019 10:39 AM BLENDING MACHINE FEEDER) Levetiracetam 30 12 - 46 ug/mL [email or web address] Comment: INTERPRETIVE INFORMATION: Keppra (Levetiracetam) Therapeutic Range: ??12-46 ug/mL ?Toxic: ??Not well Established Pharmacokinetics of levetiracetam are affected by renal function. Adverse effects may include somnolence, weakness, headache and vomiting. This levetiracetam (Keppra) immunoassay uses the [employer] reagents, which has known cross-reactivity with the drug brivaracetam (Briviact) and may report inaccurate results. Patients transitioning from levetiracetam to brivaracetam or those who are using both medications should not monitor drug concentrations with the [employer] assay. These patients should be monitored using a validated chromatographic methodology that distinguishes between drugs to determine drug concentrations. Performed by [employer], [address] [place] [address] [email or web address], Aurelio Menjivar MD, Lab. Director Blood specimen (specimen) 03/03/2019 10:39 AM BLENDING MACHINE FEEDER 03/03/2019 11:16 AM BLENDING MACHINE FEEDER Narrative Resulting Agency Comment RCR us Shawn Berkowitz MD LAB BLOOD ORDERABLES Final Result [facility] [address] [place] [address], [place] [phone] * Lipid panel (03/03/2019 10:39 AM BLENDING MACHINE FEEDER) Pathologist [facility] Triglycerides 52 0 - 149 mg/dL [facility] Comment: National Lipid Association/NCEP Guidelines: ?? Normal ?< 150 mg/dL ?? Borderline high ?? 150-199 mg/dL ?? High ?200-499 mg/dL ?? Very High ? >=500 mg/dL Cholesterol 74 0 - 199 mg/dL [facility] Comment: National Lipid Association/NCEP Guidelines: Desirable ? < 200 mg/dL Borderline high: ??200-239 mg/dL High Risk: ?>=240 mg/dL HDL Cholesterol 38 mg/dL [facility] Comment: Reference Ranges: ? Males: >=40 mg/dL ? Females: >=50 mg/dL LDL Cholesterol, Calc 26 0 - 129 mg/dL [facility] Comment: National Lipid Association/NCEP Guidelines: ??Optimal ? < 100 mg/dL ??Near Optimal ?100-129 mg/dL ??Borderline high 130-159 mg/dL ??High ?>=160 mg/dL Cholesterol/HDL Ratio 1.9 [facility] Comment: Optimal ??< 3.5:1 High ? > 5:1 Blood specimen (specimen) 03/03/2019 10:39 AM BLENDING MACHINE FEEDER 03/03/2019 11:16 AM BLENDING MACHINE FEEDER Narrative Resulting Agency Comment RCR us Shawn Berkowitz MD LAB BLOOD ORDERABLES Final Result [facility] [address] [place] [address], [place] [phone] * (ABNORMAL) Comprehensive metabolic panel (03/03/2019 10:39 AM BLENDING MACHINE FEEDER) Sodium 138 135 - 145 mmol/L [facility] Potassium 3.6 3.3 - 5.1 mmol/L [facility] Chloride 103 96 - 108 mmol/L [facility] Carbon Dioxide 25 22 - 32 mmol/L [facility] Anion Gap 10 7 - 16 [facility] Glucose 128(H) 70 - 100 mg/dL [facility] BUN 17 8 - 25 mg/dL [facility] Creatinine 0.9 0.5 - 1.3 mg/dL [facility] Comment: NOTE: Estimated GFR (Cockroft-Gault) will NOT be calculated unless patient Height and Weight were entered. Also, Kidney Disease Stage (GFR) and Estimated GFR (Cockroft-Gault) will NOT be calculated if Creatinine result is <0.2. Kidney Disease Stage 90 mL/MIN [facility] Comment: NOTE; ??The GFR is an [...] dialysis Calcium 8.6 8.6 - 10.3 mg/dL [facility] Total Protein 7.8 6.4 - 8.3 g/dL [facility] Albumin 3.9 3.5 - 5.0 g/dL [facility] Globulin 3.9(H) 2.3 - 3.5 gm/dL [facility] Albumin/Globulin Ratio 1.0(L) 1.1 - 1.8 [facility] Total Bilirubin 0.3 0.0 - 1.2 mg/dL [facility] AST 14 0 - 40 U/L [facility] ALT 13 0 - 41 U/L [facility] Alkaline Phosphatase 127 40 - 129 U/L [facility] Blood specimen (specimen) 03/03/2019 10:39 AM BLENDING MACHINE FEEDER 03/03/2019 11:16 AM BLENDING MACHINE FEEDER Narrative Resulting Agency Comment RCR Shawn Berkowitz MD LAB BLOOD ORDERABLES Final Result [address] [address], [place] [phone] * DEXA SCAN (12/22/2017) DEXA Scan Abnormal [...] documented as of this encounter Care Teams Refrigeration Technician Relationship Specialty Start Date End Date Shawn Berkowitz MD [address] [facility] [place] [address] PCP - General Internal Medicine 08/11/18 documented as of this encounter
--- OUTSIDE RECORDS SUMMARY | 2024-04-03 23:58 | XMS_ITS | Encounter Summary ---
Author Organization 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
--- OUTSIDE RECORDS SUMMARY | 2024-04-03 23:59 | XMS_ITS | Encounter Summary ---
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 [facility] Provider MD Final Res ult documented in this encounter Visit Diagnoses Not on filedocumented in this encounter Additional Health Concerns 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 difficile Comment:Germ watcher auto flagging 01/15/2014 01/15/2014 documented as of this encounter Care Teams Linux Developer Relationship Specialty Start Date End Date Shawn Berkowitz MD [address] [place] [address] [place] [id number] PCP - General Internal Medicine 08/11/18 documented as of this encounter
--- OUTSIDE RECORDS SUMMARY | 2024-04-03 23:59 | XMS_ITS | Encounter Summary ---
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[employer] Gender Identity Not on file Sexual Orientation [...] WBC 7.9 4.6 - 10.2 x10 3/ul 07/14/2014 7:25 AM CDT [facility] HISTORICAL RESULTS RBC 3.53(L) 4.11 - 5.71 x10 6/ul 07/14/2014 7:25 AM CDT [facility] HISTORICAL RESULTS Hemoglobin 11.4(L) 13.0 - 17.0 g/dl 07/14/2014 7:25 AM CDT [facility] HISTORICAL RESULTS Hct 34.1(L) 38.2 - 48.5 % 07/14/2014 7:25 AM CDT [facility] HISTORICAL RESULTS MCV 96.6 80.0 - 97.0 fl MCH 32.3(H) 27.0 - 31.2 pg 07/14/2014 7:25 AM [facility] HISTORICAL RESULTS MCHC 33.4 31.8 - 35.4 g/dl 07/14/2014 7:25 AM [facility] HISTORICAL RESULTS RDW 12.2 11.6 - 14.8 % 07/14/2014 7:25 AM [facility] HISTORICAL RESULTS Plt Count 349 124 - 400 x10 3/ul 07/14/2014 7:25 AM [facility] HISTORICAL RESULTS MPV 9.7 7.4 - 10.4 fl 07/14/2014 7:25 AM [facility] HISTORICAL RESULTS Differential Method AUTOMATED DIFF --------- -- 07/14/2014 7:25 AM [facility] HISTORICAL RESULTS Neut % 61.7 37.0 - 85.0 % 07/14/2014 7:25 AM [facility] HISTORICAL RESULTS Immature Gran % 1.4 0.0 - 3.0 % 07/14/2014 7:25 AM [facility] HISTORICAL RESULTS Lymph % 20.5 5.0 - 45.0 % 07/14/2014 7:25 AM [facility] HISTORICAL RESULTS [place] % 8.5 3.0 - 15.0 % 07/14/2014 7:25 AM [facility] HISTORICAL RESULTS Eos % 7.1(H) 0.0 - 7.0 % 07/14/2014 7:25 AM [facility] HISTORICAL RESULTS Baso % 0.8 0.0 - 2.0 % 07/14/2014 7:25 AM [facility] HISTORICAL RESULTS ABSOLUTE COUNTS ABSOLUTE COUNTS --------- -- 07/14/2014 7:25 AM [facility] HISTORICAL RESULTS Absolute Neuts (auto) 4.8 1.7 - 8.7 x10 3/ul 07/14/2014 7:25 AM [facility] HISTORICAL RESULTS Immature Gran # 0.1 0.0 - 0.3 x10 3/ul 07/14/2014 7:25 AM CDT [facility] HISTORICAL RESULTS Absolute Lymphs (auto) 1.6 0.2 - 4.6 x10 3/ul 07/14/2014 7:25 AM CDT [facility] HISTORICAL RESULTS Absolute Monos (auto) 0.7 0.1 - 1.5 x10 3/ul 07/14/2014 7:25 AM CDT [facility] HISTORICAL RESULTS Absolute Eos (auto) 0.6 0.0 - 0.7 x10 3/ul 07/14/2014 7:25 AM T [facility] HISTORICAL RESULTS Absolute Basos (auto) 0.1 0.0 - 0.2 x10 3/ul 07/14/2014 7:25 AM T [facility] HISTORICAL RESULTS 07/14/2014 6:40 AM CDT 07/14/2014 7:18 AM CDT us Daniel Roth MD LAB BLOOD ORDERABLES Final Res ult [facility] HISTORICAL RESULTS * (ABNORMAL) Basic metabolic panel (07/14/2014 6:40 AM CDT) Sodium 142 135 - 145 mmol/L 07/14/2014 7:54 AM T [facility] HISTORICAL RESULTS Potassium 4.3 3.3 - 5.1 mmol/L Chloride 103 96 - 108 mmol/L 07/14/2014 7:54 AM T [facility] HISTORICAL RESULTS Carbon Dioxide 28 22 - 32 mmol/L Anion Gap 11 7 - 16 Glucose 102(H) 70 - 100 mg/dL 07/14/2014 7:54 AM T [facility] HISTORICAL RESULTS Comment:As of March 02 14 new normal range in use. BUN 19 6 - 20 mg/dL Creatinine 0.8 0.5 - 1.3 mg/dL Kidney Disease Stage > 90 mL/MIN 07/14/2014 7:54 AM T [facility] [employer] HISTORICAL RESULTS Comment: NOTE; ??The GFR is [...] - 10.0 mg/dL 07/14/2014 7:54 AM T [facility] [employer] HISTORICAL RESULTS 07/14/2014 6:40 AM CDT 07/14/2014 7:18 AM CDT us Daniel Roth MD LAB BLOOD ORDERABLES Final Res ult [facility] HISTORICAL RESULTS * (ABNORMAL) CBC with auto differential (07/13/2014 7:06 AM CDT) WBC 9.2 4.6 - 10.2 x10 3/ul 07/13/2014 7:53 AM T [employer] HISTORICAL RESULTS Comment:Results Reviewed RBC 3.58(L) 4.11 - 5.71 x10 6/ul 07/13/2014 7:53 AM T [facility] [employer] HISTORICAL RESULTS Hemoglobin 11.5(L) 13.0 - 17.0 g/dl 07/13/2014 7:53 AM T [facility] [employer] HISTORICAL RESULTS Hct 34.1(L) 38.2 - 48.5 % 07/13/2014 7:53 AM [facility] HISTORICAL RESULTS MCV 95.3 80.0 - 97.0 fl MCH 32.1(H) 27.0 - 31.2 pg 07/13/2014 7:53 AM [facility] HISTORICAL RESULTS MCHC 33.7 31.8 - 35.4 g/dl 07/13/2014 7:53 AM [facility] HISTORICAL RESULTS RDW 11.9 11.6 - 14.8 % 07/13/2014 7:53 AM [facility] HISTORICAL RESULTS Plt Count 315 124 - 400 x10 3/ul 07/13/2014 7:53 AM [facility] HISTORICAL RESULTS MPV 9.2 7.4 - 10.4 fl 07/13/2014 7:53 AM [facility] HISTORICAL RESULTS Differential Method AUTOMATED DIFF --------- -- 07/13/2014 7:53 AM [facility] HISTORICAL RESULTS Neut % 67.7 37.0 - 85.0 % 07/13/2014 7:53 AM [facility] HISTORICAL RESULTS Immature Gran % 0.8 0.0 - 3.0 % 07/13/2014 7:53 AM [facility] HISTORICAL RESULTS Lymph % 16.8 5.0 - 45.0 % 07/13/2014 7:53 AM [facility] HISTORICAL RESULTS [place] % 9.1 3.0 - 15.0 % 07/13/2014 7:53 AM [facility] HISTORICAL RESULTS Eos % 4.9 0.0 - 7.0 % 07/13/2014 7:53 AM [facility] HISTORICAL RESULTS Baso % 0.7 0.0 - 2.0 % 07/13/2014 7:53 AM [facility] HISTORICAL RESULTS ABSOLUTE COUNTS ABSOLUTE COUNTS --------- -- 07/13/2014 7:53 AM [facility] HISTORICAL RESULTS Absolute Neuts (auto) 6.3 1.7 - 8.7 x10 3/ul 07/13/2014 7:53 AM [facility] HISTORICAL RESULTS Immature Gran # 0.1 0.0 - 0.3 x10 3/ul 07/13/2014 7:53 AM CDT [facility] HISTORICAL RESULTS Absolute Lymphs (auto) 1.6 0.2 - 4.6 x10 3/ul 07/13/2014 7:53 AM CDT [facility] HISTORICAL RESULTS Absolute Monos (auto) 0.8 0.1 - 1.5 x10 3/ul 07/13/2014 7:53 AM T [facility] HISTORICAL RESULTS Absolute Eos (auto) 0.5 0.0 - 0.7 x10 3/ul 07/13/2014 7:53 AM T [facility] HISTORICAL RESULTS Absolute Basos (auto) 0.1 0.0 - 0.2 x10 3/ul 07/13/2014 7:06 AM CDT 07/13/2014 7:34 AM CDT us Daniel Roth MD LAB BLOOD ORDERABLES Final Res ult [facility] HISTORICAL RESULTS * Basic metabolic panel (07/13/2014 [...] mg/dL Creatinine 0.8 0.5 - 1.3 mg/dL 07/13/2014 8:19 AM CDT [facility] HISTORICAL RESULTS Kidney Disease Stage > 90 mL/MIN 07/13/2014 8:19 AM CDT [facility] HISTORICAL RESULTS Comment: NOTE; ??The GFR is [...] Calcium 8.8 8.6 - 10.0 mg/dL 07/13/2014 8:19 AM CDT [facility] HISTORICAL RESULTS 07/13/2014 7:06 AM CDT 07/13/2014 7:34 AM CDT us Daniel Roth MD LAB BLOOD ORDERABLES Final Res ult [facility] HISTORICAL RESULTS * Microbiology Specimen Report (Converted) (07/12/2014 3:50 PM CDT) 07/12/2014 3:50 PM CDT 07/12/2014 4:08 PM CDT Narrative [facility] HISTORICAL RESULTS - 07/12/2014 3:50 PM CDT Microbiology Specimen Report (Converted) SPECIMEN [id number] ?? COLLECTED: 2014-07-12 15:50:00 [id number] ?? REQ#: [id number] REQUESTING DR: Daniel Roth MD ?? SOURCE: BLOOD ?? SP DESC: COMMENT: LHAND BC Draw ? LAC BC Draw ?? --- PROCEDURE --- ?--- RESULT --- ?? CULTURE BLOOD ADULT (SET OF 2) ??(Final) ??- ??Performed at [facility] ?* NO GROWTH DAY 5 - [facility] ? [address] ? [place] [address] ? Tate Novak MD Procedure Note 06/20/2018 Microbiology Specimen Report (Converted) SPECIMEN [id number] COLLECTED: 2014-07-12 15:50:00 [id number] REQ#:[id number] REQUESTING DR: Daniel Roth MD SOURCE: BLOOD SP DESC: COMMENT: LHAND BC Draw LAC BC Draw --- PROCEDURE --- --- RESULT --- CULTURE BLOOD ADULT (SET OF 2) (Final) - Performed at [facility] * NO GROWTH DAY 5 - [place] [id number] [place] [address] Tate Novak MD Daniel Roth MD LAB BLOOD ORDERABLES Final Res ult [facility] HISTORICAL RESULTS * HIV-1 and HIV-2 antibody, rapid (07/12/2014 3:50 PM CDT) Pathologist [facility] HIV 1/2 Ab NONREACTIVE NONREACTIVE 07/12/2014 4:31 PM CDT [facility] HISTORICAL RESULTS Comment: Note: ??A Non-Reactive result indicates an absence of detectable HIV-1/2 antibodies in the patient. However, it does not rule out recent exposure or past infection with HIV. 07/12/2014 3:50 PM CDT 07/12/2014 4:08 PM CDT Narrative [facility] HISTORICAL RESULTS - 07/12/2014 4:31 PM CDT us Alex Tang MD LAB BLOOD ORDERABLES Final R esult Performing Organization Address [facility]/ZIP Co de Phone Number [facility] HISTORICAL RESULTS * Microbiology Specimen Report (Converted) (07/12/2014 11:20 AM CDT) 07/12/2014 11:2 0 AM CDT 07/12/2014 11:41 AM CDT Narrative [facility] HISTORICAL RESULTS - 07/12/2014 11:20 AM CDT Microbiology Specimen Report (Converted) SPECIMEN [id number] ?? COLLECTED: 2014-07-12 11:20:00 [id number] ?? REQ#: [id number] REQUESTING DR: Daniel Roth MD ?? SOURCE: BLOOD ?? SP DESC: COMMENT: LHAND BC Draw ?? --- PROCEDURE --- ?--- RESULT --- ?? CULTURE BLOOD ADULT (SET OF 2) ??(Final) ??- ??Performed at [facility] ?* NO GROWTH DAY 5 - [facility] ? [address] ? [place] [address] ? Tate Novak MD Procedure Note 06/20/2018 Microbiology Specimen Report (Converted) SPECIMEN [id number] COLLECTED: 2014-07-12 11:20:00 [id number] REQ#:[id number] REQUESTING DR: Daniel Roth MD SOURCE: BLOOD SP DESC: COMMENT: LHAND BC Draw --- PROCEDURE --- --- RESULT --- CULTURE BLOOD ADULT (SET OF 2) (Final) - Performed at [facility] * NO GROWTH DAY 5 - [facility] [address] [place] [address] Tate Novak MD us Daniel Roth MD LAB BLOOD ORDERABLES Final Res ult Performing Organization Address [facility]/ZIP Co de Phone Number [facility] HISTORICAL RESULTS * (ABNORMAL) CBC with auto differential (07/12/2014 5:46 AM CDT) [facility] WBC 6.4 4.6 - 10.2 x10 3/ul 07/12/2014 5:55 AM CDT [facility] RBC 3.57(L) 4.11 - 5.71 x10 6/ul 07/12/2014 5:55 AM CDT [facility] HISTORICAL RESULTS Hemoglobin 11.8(L) 13.0 - 17.0 g/dl 07/12/2014 5:55 AM CDT [facility] HISTORICAL RESULTS Hct 33.9(L) 38.2 - 48.5 % 07/12/2014 5:55 AM CDT [facility] RESULTS MCV 95.0 80.0 - 97.0 fl 07/12/2014 5:55 AM CDT [facility] RESULTS MCH 33.1(H) 27.0 - 31.2 pg 07/12/2014 5:55 AM CDT [facility] HISTORICAL RESULTS MCHC 34.8 31.8 - 35.4 g/dl 07/12/2014 5:55 AM CDT [facility] HISTORICAL RESULTS RDW 11.9 11.6 - 14.8 % 07/12/2014 5:55 AM CDT [facility] HISTORICAL RESULTS Plt Count 277 124 - 400 x10 3/ul 07/12/2014 5:55 AM CDT [facility] HISTORICAL RESULTS MPV 9.0 7.4 - 10.4 fl 07/12/2014 5:55 AM CDT [facility] HISTORICAL RESULTS Differential Method AUTOMATED DIFF --------- -- 07/12/2014 5:55 AM CDT [facility] HISTORICAL RESULTS Neut % 61.4 37.0 - 85.0 % 07/12/2014 5:55 AM CDT [facility] Immature Gran % 0.5 0.0 - 3.0 % 07/12/2014 5:55 AM CDT [facility] HISTORICAL RESULTS Lymph % 21.5 5.0 - 45.0 % 07/12/2014 5:55 AM CDT [facility] HISTORICAL RESULTS [place] % 9.4 3.0 - 15.0 % 07/12/2014 5:55 AM CDT [facility] Eos % 6.6 0.0 - 7.0 % 07/12/2014 5:55 AM CDT [facility] Baso % 0.6 0.0 - 2.0 % 07/12/2014 5:55 AM T [facility] HISTORICAL RESULTS ABSOLUTE COUNTS ABSOLUTE COUNTS --------- -- 07/12/2014 5:55 AM T [facility] HISTORICAL RESULTS Absolute Neuts (auto) 3.9 1.7 - 8.7 x10 3/ul 07/12/2014 5:55 AM T [facility] HISTORICAL RESULTS Immature Gran # 0.0 0.0 - 0.3 x10 3/ul 07/12/2014 5:55 AM T [facility] HISTORICAL RESULTS Absolute Lymphs (auto) 1.4 0.2 - 4.6 x10 3/ul 07/12/2014 5:55 AM T [facility] HISTORICAL RESULTS Absolute Monos (auto) 0.6 0.1 - 1.5 x10 3/ul 07/12/2014 5:55 AM T [facility] HISTORICAL RESULTS Absolute Eos (auto) 0.4 0.0 - 0.7 x10 3/ul 07/12/2014 5:55 AM T [facility] HISTORICAL RESULTS Absolute Basos (auto) 0.0 0.0 - 0.2 x10 3/ul 07/12/2014 5:55 AM T [facility] HISTORICAL RESULTS 07/12/2014 5:46 AM CDT 07/12/2014 5:50 AM CDT us Daniel Roth MD LAB BLOOD ORDERABLES Final Res ult [facility] HISTORICAL RESULTS * Basic metabolic panel (07/12/2014 5:46 AM CDT) Sodium 142 135 - 145 mmol/L 07/12/2014 6:19 AM T [facility] HISTORICAL RESULTS Potassium 3.9 3.3 - 5.1 mmol/L 07/12/2014 6:19 AM T [facility] HISTORICAL RESULTS Chloride 105 96 - 108 mmol/L 07/12/2014 6:19 AM T [facility] HISTORICAL RESULTS Carbon Dioxide 27 22 - 32 mmol/L 07/12/2014 6:19 AM T [facility] HISTORICAL RESULTS Anion Gap 10 7 - 16 07/12/2014 6:19 AM T [facility] HISTORICAL RESULTS Glucose 97 70 - 100 mg/dL Comment:As of March 02 new normal range in use. BUN 10 6 - 20 mg/dL 07/12/2014 6:19 AM T [facility] HISTORICAL RESULTS Creatinine 0.7 0.5 - 1.3 mg/dL 07/12/2014 6:19 AM T [facility] HISTORICAL RESULTS Kidney Disease Stage > 90 mL/MIN 07/12/2014 6:19 AM T [facility] HISTORICAL RESULTS Comment: NOTE; ??The GFR is [...] MD LAB BLOOD ORDERABLES Final Res ult [facility] HISTORICAL RESULTS * (ABNORMAL) CBC with auto differential (07/11/2014 5:39 AM CDT) WBC 5.9 4.6 - 10.2 x10 3/ul 07/11/2014 6:04 AM CDT [facility] [employer] HISTORICAL RESULTS RBC 3.28(L) 4.11 - 5.71 x10 6/ul 07/11/2014 6:04 AM CDT [facility] [employer] HISTORICAL RESULTS Hemoglobin 11.0(L) 13.0 - 17.0 g/dl 07/11/2014 6:04 AM CDT [facility] [employer] HISTORICAL RESULTS Hct 31.8(L) 38.2 - 48.5 % 07/11/2014 6:04 AM CDT [facility] [employer] HISTORICAL RESULTS MCV 97.0 80.0 - 97.0 fl 07/11/2014 6:04 AM CDT [facility] [employer] HISTORICAL RESULTS MCH 33.5(H) 27.0 - 31.2 pg 07/11/2014 6:04 AM CDT [facility] [employer] HISTORICAL RESULTS MCHC 34.6 31.8 - 35.4 g/dl 07/11/2014 6:04 AM CDT [employer] HISTORICAL RESULTS RDW 11.9 11.6 - 14.8 % 07/11/2014 6:04 AM CDT [facility] [employer] HISTORICAL RESULTS Plt Count 243 124 - 400 x10 3/ul 07/11/2014 6:04 AM CDT [facility] [employer] HISTORICAL RESULTS MPV 9.5 7.4 - 10.4 fl 07/11/2014 6:04 AM T [facility] [employer] HISTORICAL RESULTS Differential Method AUTOMATED DIFF --------- -- 07/11/2014 6:04 AM CDT [employer] HISTORICAL RESULTS Neut % 60.2 37.0 - 85.0 % 07/11/2014 6:04 AM CDT [facility] [employer] HISTORICAL RESULTS Immature Gran % 0.3 0.0 - 3.0 % 07/11/2014 6:04 AM CDT [facility] [employer] HISTORICAL RESULTS Lymph % 18.8 5.0 - 45.0 % 07/11/2014 6:04 AM CDT [facility] [employer] HISTORICAL RESULTS [place] % 13.7 3.0 - 15.0 % 07/11/2014 6:04 AM CDT [facility] [employer] HISTORICAL RESULTS Eos % 6.3 0.0 - 7.0 % 07/11/2014 6:04 AM T [facility] HISTORICAL RESULTS Baso % 0.7 0.0 - 2.0 % 07/11/2014 6:04 AM T [facility] HISTORICAL RESULTS ABSOLUTE COUNTS ABSOLUTE COUNTS --------- -- 07/11/2014 6:04 AM T [facility] HISTORICAL RESULTS Absolute Neuts (auto) 3.6 1.7 - 8.7 x10 3/ul 07/11/2014 6:04 AM T [facility] HISTORICAL RESULTS Immature Gran # 0.0 0.0 - 0.3 x10 3/ul Absolute Lymphs (auto) 1.1 0.2 - 4.6 x10 3/ul 07/11/2014 6:04 AM T [facility] HISTORICAL RESULTS Absolute Monos (auto) 0.8 0.1 - 1.5 x10 3/ul 07/11/2014 6:04 AM T [facility] HISTORICAL RESULTS Absolute Eos (auto) 0.4 0.0 - 0.7 x10 3/ul Absolute Basos (auto) 0.0 0.0 - 0.2 x10 3/ul 07/11/2014 5:39 AM CDT 07/11/2014 5:48 AM CDT us Daniel Roth MD LAB BLOOD ORDERABLES Final Res ult [facility] HISTORICAL RESULTS * (ABNORMAL) Basic metabolic panel (07/11/2014 5:39 AM CDT) Sodium 140 135 - 145 mmol/L 07/11/2014 6:26 AM T [facility] HISTORICAL RESULTS Potassium 3.7 3.3 - 5.1 mmol/L 07/11/2014 6:26 AM T [facility] HISTORICAL RESULTS Chloride 103 96 - 108 mmol/L 07/11/2014 6:26 AM T [facility] HISTORICAL RESULTS Carbon Dioxide 29 22 - 32 mmol/L [...] MD LAB BLOOD ORDERABLES Final Res ult [facility] HISTORICAL RESULTS * Ova and parasite examination (07/10/2014 4:30 PM CDT) Giardia Ag NEGATIVE NEGATIVE 07/11/2014 12:38 PM CDT [facility] HISTORICAL RESULTS Cryptosporidium Ag NEGATIVE NEGATIVE 2014 12:38 PM CDT [facility] HISTORICAL RESULTS 07/10/2014 4:30 PM CDT 07/11/2014 11:03 AM CDT Narrative [facility] HISTORICAL RESULTS - 07/11/2014 12:38 PM CDT [...] ORD ERABLES Final Result Performing Organization Address [facility]/[employer] Co de Phone Number [facility] HISTORICAL RESULTS * Microbiology Specimen Report (Converted) (07/10/2014 1:48 PM CDT) 07/10/2014 1:48 PM CDT 07/10/2014 2:53 PM CDT [facility] HISTORICAL RESULTS - 07/10/2014 1:48 PM CDT Microbiology Specimen Report (Converted) SPECIMEN [id number] ?? COLLECTED: 2014-07-10 13:48:00 LD ?? REQ#: [id number] REQUESTING DR: Laurie Owens MD ?? SOURCE: [...] ?? N/R=No Report ?MAYRA =[facility] [employer] - [facility] ? [address] [place] [address] ? [place] [address] ? Tate Novak MD Procedure Note 06/20/2018 Microbiology Specimen Report (Converted) SPECIMEN [id number] COLLECTED: 2014-07-10 13:48:00 LD REQ#:[id number] REQUESTING DR: Laurie Owens MD SOURCE: STOOL [...] Dependent N/R=No Report MAYRA =[facility] [place] [address] Tate Novak MD Laurie Owens MD LAB BLOOD ORDERABLES Fi nal Result [facility] HISTORICAL RESULTS * (ABNORMAL) CBC with auto differential (07/10/2014 8:35 AM CDT) WBC 5.4 4.6 - 10.2 x10 3/ul 07/10/2014 8:47 AM CDT [employer] HISTORICAL RESULTS Comment:Results Reviewed RBC 3.70(L) 4.11 - 5.71 x10 6/ul 07/10/2014 8:47 AM CDT [facility] HISTORICAL RESULTS Hemoglobin 12.4(L) 13.0 - 17.0 g/dl 07/10/2014 8:47 AM CDT [facility] [employer] HISTORICAL RESULTS Hct 34.9(L) 38.2 - 48.5 % 07/10/2014 8:47 AM CDT [employer] HISTORICAL RESULTS MCV 94.3 80.0 - 97.0 fl 07/10/2014 8:47 AM CDT [employer] HISTORICAL RESULTS MCH 33.5(H) 27.0 - 31.2 pg 07/10/2014 8:47 AM CDT [employer] HISTORICAL RESULTS MCHC 35.5(H) 31.8 - 35.4 g/dl 07/10/2014 8:47 AM CDT [employer] HISTORICAL RESULTS RDW 11.9 11.6 - 14.8 % 07/10/2014 8:47 AM CDT [employer] HISTORICAL RESULTS Plt Count 247 124 - 400 x10 3/ul 07/10/2014 8:47 AM CDT [employer] HISTORICAL RESULTS MPV 9.3 7.4 - 10.4 fl 07/10/2014 8:47 AM CDT [employer] HISTORICAL RESULTS Differential Method AUTOMATED DIFF --------- -- 07/10/2014 8:47 AM CDT [employer] HISTORICAL RESULTS Neut % 62.0 37.0 - 85.0 % 07/10/2014 8:47 AM CDT [employer] HISTORICAL RESULTS Immature Gran % 0.2 0.0 - 3.0 % 07/10/2014 8:47 AM CDT [employer] HISTORICAL RESULTS Lymph % 13.4 5.0 - 45.0 % 07/10/2014 8:47 AM CDT [employer] HISTORICAL RESULTS [place] % 17.1(H) 3.0 - 15.0 % 07/10/2014 8:47 AM CDT [employer] HISTORICAL RESULTS Eos % 6.6 0.0 - 7.0 % 07/10/2014 8:47 AM T [facility] HISTORICAL RESULTS Baso % 0.7 0.0 - 2.0 % 07/10/2014 8:47 AM T [facility] HISTORICAL RESULTS ABSOLUTE COUNTS ABSOLUTE COUNTS --------- -- 07/10/2014 8:47 AM T [facility] HISTORICAL RESULTS Absolute Neuts (auto) 3.4 1.7 - 8.7 x10 3/ul 07/10/2014 8:47 AM T [facility] HISTORICAL RESULTS Immature Gran # 0.0 0.0 - 0.3 x10 3/ul 07/10/2014 8:47 AM T [facility] HISTORICAL RESULTS Absolute Lymphs (auto) 0.7 0.2 - 4.6 x10 3/ul 07/10/2014 8:47 AM T [facility] HISTORICAL RESULTS Absolute Monos (auto) 0.9 0.1 - 1.5 x10 3/ul 07/10/2014 8:47 AM T [facility] HISTORICAL RESULTS Absolute Eos (auto) 0.4 0.0 - 0.7 x10 3/ul 07/10/2014 8:47 AM T [facility] [facility] HISTORICAL RESULTS Absolute Basos (auto) 0.0 0.0 - 0.2 x10 3/ul 07/10/2014 8:47 AM T [facility] HISTORICAL RESULTS 07/10/2014 8:35 AM CDT 07/10/2014 8:44 AM CDT us Daniel Roth MD LAB BLOOD ORDERABLES Final Res ult [facility] HISTORICAL RESULTS * (ABNORMAL) Basic metabolic panel (07/10/2014 8:35 AM CDT) Sodium 141 135 - 145 mmol/L 07/10/2014 9:06 AM T [facility] HISTORICAL RESULTS Potassium 3.3 3.3 - 5.1 mmol/L 07/10/2014 9:06 AM T [facility] HISTORICAL RESULTS Chloride 98 96 - 108 mmol/L 07/10/2014 9:06 AM T [facility] HISTORICAL RESULTS Carbon Dioxide 30 22 - 32 mmol/L 07/10/2014 9:06 AM [facility] [employer] H[facility] RESULTS Anion Gap 13 7 - 16 07/10/2014 9:06 AM [facility] Glucose 107(H) 70 - 100 mg/dL 07/10/2014 9:06 AM [facility] Comment:As of March 02 14 new normal range in use. BUN 14 6 - 20 mg/dL 07/10/2014 9:06 AM [facility]ULTS Creatinine 0.6 0.5 - 1.3 mg/dL 07/10/2014 9:06 AM [facility]ULTS Kidney Disease Stage > 90 mL/MIN 07/10/2014 9:06 AM [facility] Comment: NOTE; ??The GFR is [...] 8.6 - 10.0 mg/dL 07/10/2014 9:06 AM [facility] [employer] [facility] HISTORICAL RESULTS 07/10/2014 8:35 AM CDT 07/10/2014 8:44 AM CDT us Daniel Roth MD LAB BLOOD ORDERABLES Final Res ult [facility] HISTORICAL RESULTS * Occult blood, fecal non neoplasm screening (07/10/2014 4:30 AM CDT) [facility] Stool Occult Blood POSITIVE NEGATIVE 07/10/2014 7:04 AM CDT [facility] HISTORICAL RESULTS 07/10/2014 4:30 AM CDT 07/10/2014 6:27 AM CDT Narrative [facility] HISTORICAL RESULTS - 07/10/2014 7:04 AM CDT Collected By Daniel Roth MD LAB BODY FLUIDS AND STOOLS ORD ERABLES Final Result Performing Organization Address [facility] de Phone Number [facility] HISTORICAL RESULTS * Influenza A/B antigens, rapid (07/09/2014 11:37 PM CDT) [facility] Influenza A Ag NEGATIVE NEGATIVE 07/10/2014 12:38 AM CDT [facility] HISTORICAL RESULTS Influenza B Ag NEGATIVE NEGATIVE 07/10/2014 12:38 AM T [facility] HISTORICAL RESULTS Comment: A NEGATIVE RESULT DOES NOT ELIMINATE THE POSSIBILITY OF AN ?? INFLUENZA A OR B INFECTION. ??INADEQUATE SPECIMEN COLLECTION ?? OR IMPROPER SAMPLE HANDLING/TRANSPORT, OR LOW LEVELS OF ?? VIRAL SHEDDING MAY YIELD A FALSE NEGATIVE RESULT. 07/09/2014 11:3 7 PM CDT 07/10/2014 12:20 AM CDT Daniel Roth MD LAB MICROBIOLOGY - GENERAL ORD ERABLES Final Result Performing Organization Address [facility] de Phone Number [facility] HISTORICAL RESULTS * (ABNORMAL) UA with Culture Reflex (07/09/2014 11:35 PM CDT) [facility] Ur Collection Type CATHETERIZED 07/10/2014 12:08 AM T [facility] HISTORICAL RESULTS Ur Culture Indicated? C&S NOT INDICATED 07/10/2014 12:08 AM T [facility] HISTORICAL RESULTS Urine Color STRAW YELLOW 07/10/2014 12:08 AM T [facility] HISTORICAL RESULTS Urine Clarity CLEAR CLEAR 07/10/2014 12:08 AM T [facility] HISTORICAL RESULTS Urine Glucose (UA) NORMAL NORMAL mg/dL Urine Bilirubin NEGATIVE NEGATIVE mg/dl Urine Ketones NEGATIVE NEGATIVE mg/dL Ur Specific [place] 1.009 1.005 - 1.025 Urine Blood 0.03(H) [...] 11:3 5 PM CDT 07/09/2014 11:59 PM [facility] Narrative [facility] HISTORICAL RESULTS - 07/10/2014 12:08 AM CDT Collected By us Laurie Owens MD LAB URINE ORDERABLES Fi nal Result [facility] HISTORICAL RESULTS * Phosphorus (07/09/2014 6:47 PM CDT) Pathologist [facility] Phosphorus 3.6 2.5 - 4.5 mg/dL 07/09/2014 7:10 PM CDT [facility] HISTORICAL RESULTS 07/09/2014 6:47 PM CDT 07/09/2014 6:50 PM CDT Daniel Roth MD LAB BLOOD ORDERABLES Final Res ult Performing Organization Address [facility]/ZIP Co de Phone Number [facility] HISTORICAL RESULTS * Magnesium (07/09/2014 6:47 PM CDT) [facility] Magnesium 1.6 1.6 - 2.6 mg/dL 07/09/2014 7:10 PM CDT [facility] HISTORICAL RESULTS Comment:Magnesium sulfate th erapy: 1.25-3.75 mmol/L 07/09/2014 6:47 PM CDT 07/09/2014 6:50 PM CDT Daniel Roth MD LAB BLOOD ORDERABLES Final Res ult Performing Organization Address [facility]/[place] Co de Phone Number [facility] HISTORICAL RESULTS * (ABNORMAL) Comprehensive metabolic panel (07/09/2014 2:49 PM CDT) [facility] Sodium 131(L) 135 - 145 mmol/L 07/09/2014 3:24 PM T [facility] HISTORICAL RESULTS Potassium 3.0(L) 3.3 - 5.1 mmol/L 07/09/2014 3:24 PM T [facility] HISTORICAL RESULTS Chloride 88(L) 96 - 108 mmol/L 07/09/2014 3:24 PM T [facility] HISTORICAL RESULTS Carbon Dioxide 34(H) 22 - 32 mmol/L 07/09/2014 3:24 PM T [facility] HISTORICAL RESULTS Anion Gap 9 7 - 16 07/09/2014 3:24 PM T [facility] HISTORICAL RESULTS Glucose 104(H) 70 - 100 mg/dL Comment:As [...] gm/dL Albumin/Globulin Ratio 0.9(L) 1.1 - 1.8 07/09/2014 3:24 PM CDT [facility] HISTORICAL RESULTS Total Bilirubin 0.4 0.0 - 1.2 mg/dL 07/09/2014 3:24 PM CDT [facility] HISTORICAL RESULTS AST 17 0 - 40 U/L 07/09/2014 3:24 PM CDT [facility] HISTORICAL RESULTS ALT 11 0 - 41 U/L 07/09/2014 3:24 PM CDT [facility] HISTORICAL RESULTS Alkaline Phosphatase 72 40 - 129 U/L 07/09/2014 3:24 PM CDT [facility] HISTORICAL RESULTS 07/09/2014 2:49 PM CDT 07/09/2014 2:54 PM CDT us Laurie Owens MD LAB BLOOD ORDERABLES Fi nal Result [facility] HISTORICAL RESULTS * (ABNORMAL) CBC with auto differential (07/09/2014 2:49 PM CDT) [facility] WBC 8.1 4.6 - 10.2 x10 3/ul 07/09/2014 2:59 PM CDT [facility] HISTORICAL RESULTS RBC 3.80(L) 4.11 - 5.71 x10 6/ul 07/09/2014 2:59 PM CDT [facility] HISTORICAL RESULTS Hemoglobin 12.8(L) 13.0 - 17.0 g/dl 07/09/2014 2:59 PM CDT [facility] HISTORICAL RESULTS Hct 36.1(L) 38.2 - 48.5 % 07/09/2014 2:59 PM CDT [facility] HISTORICAL RESULTS MCV 95.0 80.0 - 97.0 fl 07/09/2014 2:59 PM CDT [facility] HISTORICAL RESULTS MCH 33.7(H) 27.0 - 31.2 pg 07/09/2014 2:59 PM CDT [facility] HISTORICAL RESULTS MCHC 35.5(H) 31.8 - 35.4 g/dl 07/09/2014 2:59 PM CDT [facility] HISTORICAL RESULTS RDW 12.0 11.6 - 14.8 % 07/09/2014 2:59 PM CDT [facility] HISTORICAL RESULTS Plt Count 265 124 - 400 x10 3/ul MPV 9.1 7.4 - 10.4 fl Differential Method AUTOMATED DIFF --------- -- Neut % 65.4 37.0 - 85.0 % Immature Gran % 0.2 0.0 - 3.0 % Lymph % 15.5 5.0 - 45.0 % [place] % 15.0 3.0 - 15.0 % Eos [...] 0.1 0.0 - 0.2 x10 3/ul 07/09/2014 2:59 PM CDT [facility] HISTORICAL RESULTS 07/09/2014 2:49 PM CDT 07/09/2014 2:54 PM CDT Laurie Owens MD LAB BLOOD ORDERABLES Fi nal Result Performing Organization Address [facility]/ZIP Co de Phone Number [facility] HISTORICAL RESULTS * LACTOFERRIN,QL,STOOL (07/09/2014 2:40 PM CDT) Stool Lactoferrin POSITIVE NEGATIVE 07/09/2014 3:22 PM CDT [facility] HISTORICAL RESULTS Comment:(FECAL WBC BY DETECT ION OF LACTOFERRIN) 07/09/2014 2:40 PM CDT 07/09/2014 3:02 PM CDT Narrative [facility] HISTORICAL RESULTS - 07/09/2014 3:22 PM CDT Collected By KW ?? Laurie Owens MD LAB BODY FLUIDS AND STO OLS ORDERABLES Final Result Performing Organization Address [facility] de Phone Number [facility] HISTORICAL RESULTS * Clostridium difficile assay (07/09/2014 2:40 PM CDT) C, difficile (LAMP) NEGATIVE NEGATIVE 07/09/2014 4:23 PM CDT [facility] HISTORICAL RESULTS Comment: Negative test: C. difficile molecular tests [...] PM CDT 07/09/2014 3:02 PM CDT Narrative [facility] HISTORICAL RESULTS - 07/09/2014 4:23 PM CDT Collected By KW ?? Laurie Owens MD LAB MICROBIOLOGY - GENE RAL ORDERABLES Final Result Performing Organization Address [facility]/ZIP Co de Phone Number [facility] HISTORICAL RESULTS documented in this encounter Visit [...]
--- OUTSIDE RECORDS SUMMARY | 2024-04-03 23:59 | XMS_ITS | Encounter Summary ---
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 ACC# ??Date Time ??Exam [id number] Dec 29, 2013 15:53:[id number] Angio Head w/o & w cont [id number] Dec 29, 2013 15:53:[id number] Angio Neck EXAMINATION: ? CT (CTA) [...] artery is well maintained throughout and both central office mechanic are patent. The posterior communicating arteries are [...] MYA GANT M.D. on Dec ??2013 ??5:21P [id number] Procedure Note Provider, MD Mirna - 07/28/2016 MYA GANT M.D. DANIEL MODI M.D. FINAL REPORT The radiology attending physician has personally reviewed this study, and has reviewed and/or edited this written report and agrees with it. ACC# Date Time Exam [id number] Dec 29, 2013 15:53:[id number] Angio Head w/o & w cont [id number] Dec 29, 2013 15:53:[id number] Angio Neck EXAMINATION: CT (CTA) angiogram [...] artery is well maintained throughout and both central office mechanic are patent. The posterior communicating arteries are [...] GANT M.D. on Dec 29 2013 5:21P [id number] Historical Provider MD ESTRADA CT PROCEDURES Final [...] agrees with it. ACC# ??Date Time ??Exam [id number] Dec 29, 2013 15:53:[id number] Angio Head w/o & w cont [id number] Dec 29, 2013 15:53:[id number] Angio Neck EXAMINATION: ? CT (CTA) [...] artery is well maintained throughout and both central office mechanic are patent. The posterior communicating arteries are [...] MYA GANT M.D. on Dec ??2013 ??5:21P [id number] Procedure Note Provider, MD Mirna - 07/28/2016 MYA GANT M.D. DANIEL MODI M.D. FINAL REPORT The radiology attending physician has personally reviewed this study, and has reviewed and/or edited this written report and agrees with it. ACC# Date Time Exam [id number] Dec 29, 2013 15:53:[id number] Angio Head w/o & w cont [id number] Dec 29, 2013 15:53:[id number] Angio Neck EXAMINATION: CT (CTA) angiogram [...] artery is well maintained throughout and both central office mechanic are patent. The posterior communicating arteries are [...] GANT M.D. on Dec 29 2013 5:21P [id number] us Historical Provider MD ESTRADA CT PROCEDURES [...]
--- OUTSIDE RECORDS SUMMARY | 2024-04-03 23:59 | XMS_ITS | Encounter Summary ---
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 Gender Identity Not on file Sexual Orientation Not on file documented as of this encounter Plan of Treatment Not on file documented as of this encounter Procedures Procedure Name Priority Date/Time Associated Diagnosis Comments ANGIO NON-SELECTIVE GREAT VESSEL Routine 02/28/2015 10:50 AM PLATE GLASS POLISHER ANGIO NON-SELECTIVE GREAT VESSEL Routine 02/28/2015 10:50 AM PLATE GLASS POLISHER documented in this encounter Results * Angio Non-Selective Great Vessel (02/28/2015 10:50 AM PLATE GLASS POLISHER) Anatomical Region Laterality Modality Body N/A X-Ray Angiograph y 02/28/2015 10:5 0 AM PLATE GLASS POLISHER Narrative 03/01/2015 8:33 PM PLATE GLASS POLISHER DEWITTE CROSS, M.D. DEVANTE PADDACK, M.D. FINAL REPORT The radiology attending physician has personally reviewed this study, and has reviewed and/or edited this written report and agrees with it. ACC# ??Date Time ??Exam [id number] Feb 28, 2015 10:50:00 [id number] Angio Org Carotid MEDART OPERATOR Uni R [id number] Feb 28, 2015 10:50:00 [id number] Angio Org Carotid MEDART OPERATOR Uni L EXAMINATION: ?? 1. Cerebral angiogram: [...] was performed with a 19 gauge modified Gery needle. A 5 [place] sheath was inserted over a J-wire and connected to a regulated pressurized infusion of heparinized saline. A 5 [place] pigtail catheter was advanced over the wire to the aortic arch and an aortic arch injection of contrast was performed to image the arch and brachiocephalic vessels in [place] and [place] projections. The pigtail catheter was then removed over the wire. A 5 [place] JB2 catheter was introduced over the wire, [...] PRICILA BOSE M.D. on Feb ??2014 ??8:33P [id number] Procedure Note Provider, MD Mirna - 07/28/2016 PRICILA BOSE M.D. DEVANTE VOGEL M.D. FINAL REPORT The radiology attending physician has personally reviewed this study, and has reviewed and/or edited this written report and agrees with it. ACC# Date Time Exam [id number] Feb 28, 2015 10:50:00 [id number] Angio Org Carotid MEDART OPERATOR Uni R [id number] Feb 28, 2015 10:50:00 [id number] Angio Org Carotid MEDART OPERATOR Uni L EXAMINATION: 1. Cerebral angiogram: Aortic [...] 19 gauge modified Grey needle. A 5 [place] sheath was inserted over a J-wire and connected to a regulated pressurized infusion of heparinized saline. A 5 [place] pigtail catheter was advanced over the wire to the aortic arch and an aortic arch injection of contrast was performed to image the arch and brachiocephalic vessels in [place] and [place] projections. The pigtail catheter was then removed over the wire. A 5 [place] JB2 catheter was introduced over the wire, [...] BOSE M.D. on Mar 01 2015 8:33P [id number] us Historical Provider MD ESTRADA IR PROCEDURES Final R esult * Angio Non-Selective Great Vessel (02/28/2015 10:50 AM PLATE GLASS POLISHER) Anatomical Region Laterality Modality Body N/A X-Ray Angiograph y 02/28/2015 10:5 0 AM PLATE GLASS POLISHER Narrative 03/01/2015 8:33 PM PLATE GLASS POLISHER Tanja BHAGAT M.D. FINAL REPORT The radiology attending physician has personally reviewed this study, and has reviewed and/or edited this written report and agrees with it. ACC# ??Date Time ??Exam [id number] Feb 28, 2015 10:50:00 [id number] Angio Org Carotid MEDART OPERATOR Uni R [id number] Feb 28, 2015 10:50:00 [id number] Angio Org Carotid MEDART OPERATOR Uni L EXAMINATION: ?? 1. Cerebral angiogram: [...] 19 gauge modified Grey needle. A 5 [place] sheath was inserted over a J-wire and connected to a regulated pressurized infusion of heparinized saline. A 5 [place] pigtail catheter was advanced over the wire to the aortic arch and an aortic arch injection of contrast was performed to image the arch and brachiocephalic vessels in [place] and [place] projections. The pigtail catheter was then removed over the wire. A 5 [place] JB2 catheter was introduced over the wire, [...] PRICILA BOSE M.D. on Feb ??2014 ??8:33P [id number] Procedure Note Provider, MD Mirna - 07/28/2016 PRICILA BOSE M.D. DEVANTE VOGEL M.D. FINAL REPORT The radiology attending physician has personally reviewed this study, and has reviewed and/or edited this written report and agrees with it. ACC# Date Time Exam [id number] Feb 28, 2015 10:50:00 [id number] Angio Org Carotid MEDART OPERATOR Uni R [id number] Feb 28, 2015 10:50:00 [id number] Angio Org Carotid MEDART OPERATOR Uni L EXAMINATION: 1. Cerebral angiogram: Aortic [...] 19 gauge modified Grey needle. A 5 [place] sheath was inserted over a J-wire and connected to a regulated pressurized infusion of heparinized saline. A 5 [place] pigtail catheter was advanced over the wire to the aortic arch and an aortic arch injection of contrast was performed to image the arch and brachiocephalic vessels in [place] and [place] projections. The pigtail catheter was then removed over the wire. A 5 [place] JB2 catheter was introduced over the wire, [...] BOSE M.D. on Mar 01 2015 8:33P [id number] us Historical Provider MD ESTRADA IR PROCEDURES [...]
--- OUTSIDE RECORDS SUMMARY | 2024-04-03 23:59 | XMS_ITS | Encounter Summary ---
Author Organization [facility] Facility Care Team Providers Care Firebreak Cutter Name Role Phone Unavailable Primary Care Provider Unavailabl e Encounter Details Date Type Department Care Team (Late st Contact Info) Description 02/20/2015 - 02/20/2015 11:59 PM CHILDCARE AIDE Hospital Encounter [facility] Markie Crawford MD [address] [place] [address] Social History Tobacco Use Types Packs/Day Years Used Date Smoking Tobacco: Never Assessed Sex and Gender Information Value Date Recorded Sex Assigned at Not on file Legal Sex Male 6:59 AM 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
--- OUTSIDE RECORDS SUMMARY | 2024-04-03 23:59 | XMS_ITS | Encounter Summary ---
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 Gender Identity Not on file Sexual [...] WBC 7.3 4.6 - 10.2 x10 3/ul RBC 3.70(L) 4.11 - 5.71 x10 6/ul 09/28/2014 6:29 AM CDH2020 [facility] [employer] HISTORICAL RESULTS Hemoglobin 12.4(L) 13.0 - 17.0 g/dl 09/28/2014 6:29 AM [facility] Hct 35.9(L) 38.2 - 48.5 % 09/28/2014 6:29 AM T [facility] HISTORICAL RESULTS MCV 97.0 80.0 - 97.0 fl MCH 33.5(H) 27.0 - 31.2 pg 09/28/2014 6:29 AM H2020 [facility] [employer] HISTORICAL RESULTS MCHC 34.5 31.8 - 35.4 g/dl 09/28/2014 6:29 AM H2020 [facility] [employer] HISTORICAL RESULTS RDW 12.0 11.6 - 14.8 % 09/28/2014 6:29 AM H2020 [facility] [employer] HISTORICAL RESULTS Plt Count 319 124 - 400 x10 3/ul 09/28/2014 6:29 AM H2020 [facility] MPV 9.7 7.4 - 10.4 fl 09/28/2014 6:29 AM H2020 [facility] [employer] HISTORICAL RESULTS Differential Method AUTOMATED DIFF --------- -- 09/28/2014 6:29 AM H2020 [facility] HIST[facility] RESULTS Neut % 55.0 37.0 - 85.0 % 09/28/2014 6:29 AM H2020 [facility] HIST[facility]ICAL RESULTS Immature Gran % 0.1 0.0 - 3.0 % 09/28/2014 6:29 AM H2020 [facility] Lymph % 31.0 5.0 - 45.0 % 09/28/2014 6:29 AM H2020 [facility] [employer] HISTORICAL RESULTS Brown % 8.4 3.0 - 15.0 % 09/28/2014 6:29 AM H2020 [facility] HIST[facility] RESULTS Eos % 4.7 0.0 - 7.0 % 09/28/2014 6:29 AM H2020 [facility] Baso % 0.8 0.0 - 2.0 % 09/28/2014 6:29 AM H2020 [facility]ULTS ABSOLUTE COUNTS ABSOLUTE COUNTS --------- -- Absolute Neuts (auto) 4.0 1.7 - 8.7 x10 3/ul Immature Gran # 0.0 0.0 - 0.3 x10 3/ul Absolute Lymphs (auto) 2.3 0.2 - 4.6 x10 3/ul Absolute Monos (auto) 0.6 0.1 - 1.5 x10 3/ul Absolute Eos (auto) 0.3 0.0 - 0.7 x10 3/ul Absolute Basos (auto) 0.1 0.0 - 0.2 x10 3/ul 09/28/2014 5:33 AM CDT 09/28/2014 6:06 AM CDT us Tracie Hinds LAB BLOOD ORDERABLES Final Res ult [facility] HISTORICAL RESULTS * (ABNORMAL) Basic metabolic panel [...] Willamsen LAB BLOOD ORDERABLES Final Res ult [facility] HISTORICAL RESULTS * (ABNORMAL) CBC with auto differential (09/27/2014 6:10 AM CDT) WBC 9.6 4.6 - 10.2 x10 3/ul RBC 3.94(L) 4.11 - 5.71 x10 6/ul 09/27/2014 7:02 AM H2020 [facility] [employer] HISTORICAL RESULTS Hemoglobin 13.0 13.0 - 17.0 g/dl 09/27/2014 7:02 AM T [facility] RESULTS Hct 37.9(L) 38.2 - 48.5 % 09/27/2014 7:02 AM T [facility]ULTS MCV 96.2 80.0 - 97.0 fl 09/27/2014 7:02 AM H2020 [facility] HISTORICAL RESULTS MCH 33.0(H) 27.0 - 31.2 pg 09/27/2014 7:02 AM H2020 [facility] [employer] HISTORICAL RESULTS MCHC 34.3 31.8 - 35.4 g/dl 09/27/2014 7:02 AM H2020 [facility] H[facility] RESULTS RDW 11.9 11.6 - 14.8 % 09/27/2014 7:02 AM H2020 [facility] [employer] HISTORICAL RESULTS Plt Count 374 124 - 400 x10 3/ul 09/27/2014 7:02 AM H2020 [facility] MPV 9.5 7.4 - 10.4 fl 09/27/2014 7:02 AM H2020 [facility] Differential Method AUTOMATED DIFF --------- -- 09/27/2014 7:02 AM H2020 [facility] HISTORICAL RESULTS Neut % 73.3 37.0 - 85.0 % 09/27/2014 7:02 AM H2020 [facility]ULTS Immature Gran % 0.3 0.0 - 3.0 % 09/27/2014 7:02 AM H2020 [facility]ULTS Lymph % 14.7 5.0 - 45.0 % 09/27/2014 7:02 AM H2020 [facility] [employer] HISTORICAL RESULTS Brown % 7.1 3.0 - 15.0 % 09/27/2014 7:02 AM [place] [facility] [employer] HISTORICAL RESULTS Eos % 3.8 0.0 - 7.0 % 09/27/2014 7:02 AM [place] [facility] Baso % 0.8 0.0 - 2.0 % 09/27/2014 7:02 AM H2020 [facility]ULTS ABSOLUTE COUNTS ABSOLUTE COUNTS --------- [...] Hinds LAB BLOOD ORDERABLES Final Res ult [facility] HISTORICAL RESULTS * (ABNORMAL) Basic metabolic panel [...] Hinds LAB BLOOD ORDERABLES Final Res ult [facility] HISTORICAL RESULTS * Oxygen saturation, arterial (09/26/2014 10:10 AM CDT) Specimen Type Oximeter Puncture Site FINGER O2 Sat Pulse Oximetry 94.0 >=90.0 % FiO2 21.0 % Rn Observation ID BNP 09/26/2014 10:1 0 AM CDT 09/26/2014 10:59 AM CDT Tracie Hinds LAB BLOOD ORDERABLES Final Res ult [facility] HISTORICAL RESULTS * Oxygen saturation, arterial (09/26/2014 7:02 AM CDT) Specimen Type Oximeter Puncture Site FINGER O2 Sat Pulse Oximetry 96.0 >=90.0 % FiO2 21.0 % Rn Observation ID CRM 09/26/2014 7:02 AM CDT 09/26/2014 8:29 AM CDT Tracie Hinds LAB BLOOD ORDERABLES Final Res ult [facility] HISTORICAL RESULTS * (ABNORMAL) CBC with auto differential (09/26/2014 6:12 AM CDT) WBC 10.2 4.6 - 10.2 x10 3/ul RBC 4.13 4.11 - 5.71 x10 6/ul Hemoglobin 13.9 13.0 - 17.0 g/dl Hct 40.2 38.2 - 48.5 % MCV 97.3(H) 80.0 - 97.0 fl MCH 33.7(H) 27.0 - 31.2 pg MCHC 34.6 31.8 - 35.4 g/dl RDW 12.1 11.6 - 14.8 % Plt Count 356 124 - 400 x10 3/ul MPV 9.4 7.4 - 10.4 fl Differential Method AUTOMATED DIFF --------- -- Neut % 72.9 37.0 - 85.0 % Immature Gran % 0.3 0.0 - 3.0 % Lymph % 16.8 5.0 - 45.0 % Brown % 7.1 3.0 - 15.0 % Eos % 2.2 0.0 - 7.0 % Baso % 0.7 0.0 - 2.0 % ABSOLUTE COUNTS ABSOLUTE COUNTS --------- -- Absolute Neuts (auto) 7.5 1.7 - 8.7 x10 3/ul Immature Gran # 0.0 0.0 - 0.3 x10 3/ul Absolute Lymphs (auto) 1.7 0.2 - 4.6 x10 3/ul Absolute Monos (auto) 0.7 0.1 - 1.5 x10 3/ul Absolute Eos (auto) 0.2 0.0 - 0.7 x10 3/ul Absolute Basos (auto) 0.1 0.0 - 0.2 x10 3/ul 09/26/2014 6:12 AM CDT 09/26/2014 6:38 AM CDT Tracie Hinds LAB BLOOD ORDERABLES Final Res ult [facility] HISTORICAL RESULTS * (ABNORMAL) Basic metabolic panel [...] Calcium 9.6 8.8 - 10.2 mg/dL 09/26/2014 6:12 AM CDT 09/26/2014 6:38 AM CDT us Tracie Hinds LAB BLOOD ORDERABLES Final Res ult [facility] HISTORICAL RESULTS * US Carotids Duplex Bilateral [...] indicate more cerebral vascular disease. NTS Job: [id number] Dictated By: Shay Dobbins MD Dictated For: Shay Dobbins MD [EOD] Narrative 09/26/2014 5:04 PM [...] indicate more cerebral vascular disease. NTS Job: [id number] Dictated By: Shay Dobbins MD Dictated For: [...] Specimen Type Oximeter 2014 12:31 PM CDT [facility] HISTORICAL RESULTS Puncture Site FINGER 2014 12:31 PM CDT [facility] HISTORICAL RESULTS O2 Sat Pulse Oximetry 95.0 >=90.0 % 2014 12:31 PM CDT [facility] HISTORICAL RESULTS FiO2 21.0 % 2014 12:31 PM CDT [facility] HISTORICAL RESULTS Rn Observation ID [id number] 2014 12:31 PM CDT [facility] HISTORICAL RESULTS 2014 11:5 8 AM CDT 2014 12:31 PM CDT us Tracie Hinds LAB BLOOD ORDERABLES Final Res ult [facility] HISTORICAL RESULTS * Oxygen saturation, arterial (2014 7:15 AM CDT) Specimen Type Oximeter 2014 7:51 AM CDT [facility] HISTORICAL RESULTS Puncture Site FINGER 2014 7:51 AM CDT [facility] HISTORICAL RESULTS O2 Sat Pulse Oximetry 93.0 >=90.0 % 2014 7:51 AM CDT [facility] HISTORICAL RESULTS FiO2 21.0 % 2014 7:51 AM CDT [facility] HISTORICAL RESULTS Rn Observation ID [id number] 2014 7:51 AM CDT [facility] HISTORICAL RESULTS 2014 7:15 AM CDT 2014 7:50 AM CDT Tracie Willamsen LAB BLOOD ORDERABLES Final Res ult [facility] HISTORICAL RESULTS * Phosphorus (2014 6:26 AM CDT) Phosphorus 3.6 2.5 - 4.5 mg/dL 2014 7:08 AM CDT [facility] HISTORICAL RESULTS 2014 6:26 AM CDT 2014 6:39 AM CDT Tracie Hinds LAB BLOOD ORDERABLES Final Res ult Performing Organization Address [facility] Co de Phone Number [facility] HISTORICAL RESULTS * Magnesium (2014 6:26 AM CDT) Magnesium 1.7 1.6 - 2.6 mg/dL 2014 7:08 AM CDT [facility] HISTORICAL RESULTS Comment:Magnesium sulfate th erapy: 3.0-9.1 mg/dL 2014 6:26 AM CDT 2014 6:39 AM CDT Tracie Hinds LAB BLOOD ORDERABLES Final Res ult Performing Organization Address [place]/[facility]/ZIP Co de Phone Number [facility] HISTORICAL RESULTS * (ABNORMAL) CBC with auto differential (2014 6:26 AM CDT) Pathologist [facility] WBC 8.4 4.6 - 10.2 x10 3/ul 2014 6:49 AM CDT [facility] HISTORICAL RESULTS RBC 3.90(L) 4.11 - 5.71 x10 6/ul 2014 6:49 AM T [facility] HISTORICAL RESULTS Hemoglobin 12.8(L) 13.0 - 17.0 g/dl 2014 6:49 AM T [facility] HISTORICAL RESULTS Hct 38.5 38.2 - 48.5 % 2014 6:49 AM CDT [facility] MCV 98.7(H) 80.0 - 97.0 fl 2014 6:49 AM [facility] MCH 32.8(H) 27.0 - 31.2 pg 2014 6:49 AM [facility] MCHC 33.2 31.8 - 35.4 g/dl 2014 6:49 AM [facility] RDW 12.3 11.6 - 14.8 % 2014 6:49 AM [facility] Plt Count 346 124 - 400 x10 3/ul 2014 6:49 AM H2020 [facility] HIST[facility]ICAL RESULTS MPV 9.7 7.4 - 10.4 fl 2014 6:49 AM [facility] Differential Method AUTOMATED DIFF --------- -- 2014 6:49 AM H2020 [facility] HIST[facility] RESULTS Neut % 68.3 37.0 - 85.0 % 2014 6:49 AM H2020 [facility] HISTORICAL RESULTS Immature Gran % 0.2 0.0 - 3.0 % 2014 6:49 AM H2020 [facility] HISTORICAL RESULTS Lymph % 19.4 5.0 - 45.0 % 2014 6:49 AM H2020 [facility] HISTORICAL RESULTS Brown % 7.7 3.0 - 15.0 % 2014 6:49 AM H2020 [facility] HISTORICAL RESULTS Eos % 3.8 0.0 - 7.0 % 2014 6:49 AM H2020 [facility] HISTORICAL RESULTS Baso % 0.6 0.0 - 2.0 % 2014 6:49 AM [facility] ABSOLUTE COUNTS ABSOLUTE COUNTS --------- -- 2014 6:49 AM H2020 [facility] H[facility] RESULTS Absolute Neuts (auto) 5.7 1.7 - 8.7 x10 3/ul 2014 6:49 AM H2020 [facility] Immature Gran # 0.0 0.0 - 0.3 x10 3/ul 2014 6:49 AM CDT [facility] HISTORICAL RESULTS Absolute Lymphs (auto) 1.6 0.2 - 4.6 x10 3/ul 2014 6:49 AM CDT [facility] HISTORICAL RESULTS Absolute Monos (auto) 0.6 0.1 - 1.5 x10 3/ul 2014 6:49 AM T [facility] HISTORICAL RESULTS Absolute Eos (auto) 0.3 0.0 - 0.7 x10 3/ul 2014 6:49 AM T [facility] HISTORICAL RESULTS Absolute Basos (auto) 0.1 0.0 - 0.2 x10 3/ul 2014 6:49 AM T [facility] HISTORICAL RESULTS 2014 6:26 AM CDT 2014 6:39 AM CDT Tracie Hinds LAB BLOOD ORDERABLES Final Res ult [facility] HISTORICAL RESULTS * (ABNORMAL) Basic metabolic panel [...] > 90 mL/MIN 2014 7:08 AM CDT [facility] Comment: NOTE; ??The GFR is [...] - 10.2 mg/dL 2014 7:08 AM CDT [facility]ULTS 2014 6:26 AM CDT 2014 6:39 AM CDT Tracie Willamsen LAB BLOOD ORDERABLES Final Res ult Performing Organization Address [facility] Co de Phone Number [facility]OR[facility] RESULTS * TSH (2014 6:26 AM CDT) TSH 0.55 0.27 - 4.20 uIU/mL 2014 7:15 AM CDT [facility]ULTS 2014 6:26 AM CDT 2014 6:39 AM CDT Tracie Flowers Guzman LAB BLOOD ORDERABLES Final Res ult Performing Organization Address [facility]/ZIP Co de Phone Number [facility]IST[facility] RESULTS * (ABNORMAL) Blood gas (includes COOX) (09/24/2014 5:00 PM [facility]) Specimen Type ARTERIAL Puncture Site RR Patient [...] CENTER HISTORICAL RESULTS a/A Ratio 0.4(L) >=0.8 O2 Delivery Device CANNULA 2014 5:11 PM CDT [facility] HISTORICAL RESULTS Liter Flow 5.0 FiO2 40.0 % BG Specimen Comment [id number] 09/24 5:11 PM CDT [facility] HISTORICAL RESULTS Rn Observation ID TMM 09/24/2014 5:00 PM CDT 09/24/2014 5:06 PM CDT [facility] HISTORICAL RESULTS - 09/24/2014 5:11 PM CDT Conditions Room Air ?? Source Arterial Alli Paula DO LAB BLOOD ORDERABLES Final Result Performing Organization Address [facility]/ZIP Co de Phone Number [facility] HISTORICAL RESULTS * Salicylate level (09/24/2014 3:18 PM CDT) Salicylates < 1 0 - 29 mg/dL 09/24/2014 3:18 PM CDT 09/24/2014 3:25 PM CDT [facility] HISTORICAL RESULTS - 09/24/2014 3:56 PM CDT NO SPECIMEN TO ADD TO PREVIOUS TESTS Alli Paula DO LAB BLOOD ORDERABLES Final Result [facility] HISTORICAL RESULTS * Acetaminophen level (09/24/2014 3:18 PM CDT) Acetaminophen < 15.0 10.0 - 30.0 ug/mL Comment: Acetaminophen concentrations greater than 200 ug/mL at four hours after ingestion and greater than 50 ug/mL at 12 hours after ingestion are often associated with toxicity. 09/24/2014 3:18 PM CDT 09/24/2014 3:25 PM CDT Narrative [facility] HISTORICAL RESULTS - 09/24/2014 3:56 PM CDT NO SPECIMEN TO ADD TO PREVIOUS TESTS us Alli Paula DO LAB BLOOD ORDERABLES Final Result [facility] HISTORICAL RESULTS * (ABNORMAL) Drug Screen, Urine without Confirmation (09/24/2014 2:00 PM CDT) Ur Amphetamine Screen NEGATIVE NEGATIVE Comment: Cutoff Limit: ??1000 ng/mL Note: ??Positive results from this drug screen are unconfirmed. ??Unconfirmed screening results should not be used for non-medical purposes. Ur Barbiturates Screen NEGATIVE NEGATIVE Comment:Cutoff limit: 200 ng /mL U Benzodiazepines Scrn POSITIVE(H) NEGATIVE Comment: RESULT CALLED at: 164009/24/14 by: [id number] to: DR ALONSO ?? CONFIRMATION on Positive result requested:NO Cutoff limit: 300 ng/mL U Cannabinoids Screen POSITIVE(H) NEGATIVE Comment: RESULT CALLED at: 164209/24/14 by: [id number] to: DR ALONSO ? CONFIRMATION on Positive result requested:NO Cutoff Limit: 50 ng/mL U Cocaine Metab Screen NEGATIVE NEGATIVE Comment:Cutoff limit: 300 ng /mL Urine Opiates Screen POSITIVE(H) NEGATIVE Comment: RESULT CALLED at: 164209/24/14 by: [id number] to: DR ALONSO ?? CONFIRMATION on Positive result requested:NO Cutoff Limit: ??300 ng/mL Urine Creatinine/JANET 107.0 mg/dL Comment:If Creatinine is < 4 0 mg/dL, recollection is suggested. 09/24/2014 2:00 PM CDT 09/24/2014 3:24 PM CDT Narrative [facility] HISTORICAL RESULTS - 09/24/2014 3:52 PM CDT Collected By jk Alli Paula DO LAB URINE ORDERABLES Final Result [facility] HISTORICAL RESULTS * UA with Culture Reflex (09/24/2014 2:00 PM CDT) Ur Collection Type STRAIGHT CATH Ur Culture Indicated? C&S NOT INDICATED Urine Color YELLOW YELLOW Urine Clarity CLEAR CLEAR Urine Glucose (UA) NORMAL NORMAL mg/dL Urine Bilirubin NEGATIVE NEGATIVE mg/dl Urine Ketones NEGATIVE NEGATIVE mg/dL Ur Specific [place] 1.010 1.005 - 1.025 Urine Blood NEGATIVE NEGATIVE mg/dl Urine pH 7.0 5.0 - 8.0 Urine Protein NEGATIVE NEGATIVE mg/dL Urine Urobilinogen NORMAL NORMAL mg/dL Urine Nitrite NEGATIVE NEGATIVE Ur Leukocyte Esterase NEGATIVE NEGATIVE Ian/ul Ur Microscopic Review Not Indicated 09/24/2014 2:00 PM CDT 09/24/2014 2:52 PM CDT Alli Paula DO LAB URINE ORDERABLES Final Result Performing Organization Address [facility] de Phone Number [facility] HISTORICAL RESULTS * Ethanol (09/24/2014 1:32 PM CDT) Ethyl Alcohol < 10 mg/dL Comment:% = mg/dL x .001 09/24/2014 1:32 PM CDT 09/24/2014 1:35 PM CDT Alli Paula DO LAB BLOOD ORDERABLES Final Result Performing Organization Address [facility] Phone Number [facility] HISTORICAL RESULTS * (ABNORMAL) TNI with LIPID PANEL (09/24/2014 1:32 PM CDT) Pathologist [facility] Troponin I < 0.300 0.000 - 0.300 [...] BLOOD ORDERABLES Final Result Performing Organization Address [facility] de Phone Number [facility] HISTORICAL RESULTS * Protime-INR (09/24/2014 1:32 PM CDT) PT 13.6 12.2 - 14.8 SECONDS INR 1.01 0.01 - 5.99 Comment: Recommended Therapeutic range [...] BLOOD ORDERABLES Final Result Performing Organization Address [facility] de Phone Number [facility] HISTORICAL RESULTS * aPTT (09/24/2014 1:32 PM CDT) APTT 25 24 - 38 SECONDS 09/24/2014 1:32 PM CDT 09/24/2014 1:35 PM CDT Alli Paula DO LAB BLOOD ORDERABLES Final Result [facility] HISTORICAL RESULTS * (ABNORMAL) Comprehensive metabolic panel (09/24/2014 1:32 PM CDT) Sodium 145 135 - 145 mmol/L Potassium 4.1 3.3 - 5.1 mmol/L Chloride 101 96 [...] Paula DO LAB BLOOD ORDERABLES Final Result [facility] HISTORICAL RESULTS * (ABNORMAL) CBC with auto differential (09/24/2014 1:32 PM CDT) WBC 10.4(H) 4.6 - 10.2 x10 3/ul RBC 4.18 4.11 - 5.71 x10 6/ul Hemoglobin 13.8 13.0 - 17.0 g/dl Hct 41.2 38.2 - 48.5 % MCV 98.6(H) 80.0 - 97.0 fl MCH [...] Lymph % 14.3 5.0 - 45.0 % Brown % 7.1 3.0 - 15.0 % Eos % 2.7 0.0 - 7.0 % Baso % 0.5 0.0 - 2.0 % ABSOLUTE COUNTS ABSOLUTE COUNTS --------- -- Absolute Neuts (auto) 7.8 1.7 - 8.7 x10 3/ul Immature Gran # 0.0 0.0 - 0.3 x10 3/ul Absolute Lymphs (auto) 1.5 0.2 - 4.6 x10 3/ul Absolute Monos (auto) 0.7 0.1 - 1.5 x10 3/ul Absolute Eos (auto) 0.3 0.0 - 0.7 x10 3/ul Absolute Basos (auto) 0.1 0.0 - 0.2 x10 3/ul 09/24/2014 1:32 PM CDT 09/24/2014 1:35 PM CDT us Alli Paula DO LAB BLOOD ORDERABLES Final Result [facility] HISTORICAL RESULTS * CARDIOLOGY REPORT (09/24/2014 12:00 [...] Vela D.O. :as 07:23 PM 07:23 PM [facility] [EOD] us Alli Paula DO IMG [...] Milton M.D. JA:mariia 01:35 PM 01:35 PM [facility] [EOD] Alli Paula DO IMG CT [...]
--- OUTSIDE RECORDS SUMMARY | 2024-04-03 23:59 | XMS_ITS | Encounter Summary ---
Author Organization 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 Negative: Repeat in 4-6 hours as indicated. 01/25/2016 10:2 9 AM CDT 01/25/2016 10:32 AM CDT us Tate Moreno MD LAB BLOOD ORDERABLES Final Resu lt [facility] HISTORICAL RESULTS * (ABNORMAL) Phosphorus (01/25/2016 7:09 AM CDT) Phosphorus 2.3(L) 2.5 - 4.5 mg/dL 01/25/2016 7:54 AM CDT [facility] HISTORICAL RESULTS 01/25/2016 7:09 AM CDT 01/25/2016 7:20 AM CDT us Tate Moreno MD LAB BLOOD ORDERABLES Final Resu lt Performing Organization Address [facility] de Phone Number [facility] HISTORICAL RESULTS * Magnesium (01/25/2016 7:09 AM CDT) [facility] Magnesium 1.7 1.6 - 2.6 mg/dL 01/25/2016 7:54 AM CDT [facility] HISTORICAL RESULTS Comment:Magnesium sulfate th erapy: 3.0-9.1 mg/dL 01/25/2016 7:09 AM CDT 01/25/2016 7:20 AM CDT us Tate Moreno MD LAB BLOOD ORDERABLES Final Resu lt Performing Organization Address [facility] de Phone Number [facility] HISTORICAL RESULTS * Creatine kinase (CK), total (01/25/2016 7:09 AM CDT) Pathologist [facility] [place] Creatine Kinase 41 20 - 200 U/L 01/25/2016 7:54 AM CDT [facility] HISTORICAL RESULTS 01/25/2016 7:09 AM CDT 01/25/2016 7:20 AM CDT us Tate Moreno MD LAB BLOOD ORDERABLES Final Resu lt Performing Organization Address [facility] de Phone Number [facility] HISTORICAL RESULTS * (ABNORMAL) TNI with LIPID PANEL (01/25/2016 7:09 AM CDT) Troponin I < 0.300 0.000 - 0.300 ng/mL 01/25/2016 7:52 AM [facility] HISTORICAL RESULTS Comment: Reference using [place] Chemiluminescence ? Negative: Repeat in 4-6 hours as indicated. Triglycerides 102 0 - 199 mg/dL 01/25/2016 7:54 AM [facility] HISTORICAL RESULTS Comment:12 hr pc highly luis mmended for Triglyceride Cholesterol 92 0 - 199 mg/dL 01/25/2016 7:54 AM [facility] HISTORICAL RESULTS Comment: Borderline: ??200-239 High Risk: ?? >239 HDL Cholesterol 27(L) 40 - 60 mg/dL 01/25/2016 7:54 AM [facility] HISTORICAL RESULTS Comment: Major Risk ?< 40 mg/dL Moderate Risk ?40-60 mg/dL Negative Risk ?? > 60 mg/dL LDL Cholesterol, Calc 45 0 - 130 mg/dL 01/25/2016 7:54 AM [facility] HISTORICAL RESULTS Comment:High Risk > 159 mg/d L Cholesterol/HDL Ratio 3.4 01/25/2016 7:54 AM [facility] HISTORICAL RESULTS Comment: Cholesterol / HDL Ratio 3.5:1 or less is desirable. Cholesterol / HDL Ratio greater than 5:1 is considered higher risk for developing heart disease. 01/25/2016 7:09 AM CDT 01/25/2016 7:20 AM CDT us Tate Moreno MD LAB BLOOD ORDERABLES Final Resu lt [facility] HISTORICAL RESULTS * Protime-INR (01/25/2016 7:09 AM CDT) PT 14.4 11.8 - 14.5 SECONDS 01/25/2016 7:29 AM T [facility] HISTORICAL RESULTS INR 1.11 0.01 - 5.99 01/25/2016 7:29 AM T [facility] HISTORICAL RESULTS Comment: Recommended Therapeutic range for [...] ORDERABLES Final Resu lt Performing Organization Address [facility] de Phone Number [facility] HISTORICAL RESULTS * aPTT (01/25/2016 7:09 AM CDT) APTT 33 26 - 33 SECONDS 01/25/2016 7:30 AM [facility] HISTORICAL RESULTS 01/25/2016 7:09 AM CDT 01/25/2016 7:20 AM CDT Tate Moreno MD LAB BLOOD ORDERABLES Final Resu lt Performing Organization Address [facility] de Phone Number [facility] HISTORICAL RESULTS * (ABNORMAL) Comprehensive metabolic panel (01/25/2016 7:09 AM CDT) Pathologist [facility] [place] Sodium 143 135 - 145 mmol/L 01/25/2016 7:54 AM [facility] HISTORICAL RESULTS Potassium 3.6 3.3 - 5.1 mmol/L 01/25/2016 7:54 AM [facility] HISTORICAL RESULTS Chloride 102 96 - 108 mmol/L 01/25/2016 7:54 AM [facility] HISTORICAL RESULTS Carbon Dioxide 27 22 - 32 mmol/L 01/25/2016 7:54 AM [facility] HISTORICAL RESULTS Anion Gap 14 7 - 16 01/25/2016 7:54 AM [facility] HISTORICAL RESULTS Glucose 107(H) 70 - 100 mg/dL 01/25/2016 7:54 AM [facility] HISTORICAL RESULTS BUN 9 8 - 23 mg/dL 01/25/2016 7:54 AM [facility] HISTORICAL RESULTS Creatinine 0.8 0.5 - 1.3 mg/dL 01/25/2016 7:54 AM [facility] [employer] HISTORICAL RESULTS Comment: NOTE: Estimated GFR (Cockroft-Gault) will NOT be calculated unless patient Height and Weight were entered. Also, Kidney Disease Stage (GFR) and Estimated GFR (Cockroft-Gault) will NOT be calculated if Creatinine result is <0.2. Kidney Disease Stage > 90 mL/MIN 01/25/2016 7:54 AM [facility] [employer] [facility] HISTORICAL RESULTS Comment: NOTE; ??The GFR is [...] GFR (Cockcroft-G) 106 ml/MIN 01/25/2016 7:54 AM [facility] [employer] [facility] HISTORICAL RESULTS Comment: Estimated GFR(Cockroft-Gault)is used to calculate patient medication dosage Calcium 9.1 8.8 - 10.2 mg/dL 01/25/2016 7:54 AM [facility] [employer] HISTORICAL RESULTS Total Protein 8.1 6.4 - 8.3 g/dL 01/25/2016 7:54 AM [facility] [employer] [facility] HISTORICAL RESULTS Albumin 3.7 3.5 - 5.2 g/dL 01/25/2016 7:54 AM [facility] [employer] [facility] HISTORICAL RESULTS Globulin 4.4(H) 2.3 - 3.5 gm/dL 01/25/2016 7:54 AM T [facility] HISTORICAL RESULTS Albumin/Globulin Ratio 0.8(L) 1.1 - 1.8 01/25/2016 7:54 AM CDT [facility] HISTORICAL RESULTS Total Bilirubin 0.4 0.0 - 1.2 mg/dL 01/25/2016 7:54 AM T [facility] HISTORICAL RESULTS AST 13 0 - 40 U/L 01/25/2016 7:54 AM T [facility] HISTORICAL RESULTS ALT 9 0 - 41 U/L 01/25/2016 7:54 AM T [facility] HISTORICAL RESULTS Alkaline Phosphatase 92 40 - 129 U/L 01/25/2016 7:54 AM T [facility] HISTORICAL RESULTS 01/25/2016 7:09 AM CDT 01/25/2016 7:20 AM CDT us Tate Moreno MD LAB BLOOD ORDERABLES Final Resu lt [facility] HISTORICAL RESULTS * (ABNORMAL) CBC with auto differential (01/25/2016 7:09 AM CDT) WBC 11.1(H) 4.6 - 10.2 x10 3/ul 01/25/2016 7:27 AM T [facility] HISTORICAL RESULTS RBC 3.87(L) 4.11 - 5.71 x10 6/ul 01/25/2016 7:27 AM [facility] HISTORICAL RESULTS Hemoglobin 12.7(L) 13.0 - 17.0 g/dl 01/25/2016 7:27 AM T [facility] HISTORICAL RESULTS Hct 38.0(L) 38.2 - 48.5 % 01/25/2016 7:27 AM T [facility] HISTORICAL RESULTS MCV 98.2(H) 80.0 - 97.0 fl 01/25/2016 7:27 AM T [facility] HISTORICAL RESULTS MCH 32.8(H) 27.0 - 31.2 pg 01/25/2016 7:27 AM T [facility] HISTORICAL RESULTS MCHC 33.4 31.8 - 35.4 g/dl 01/25/2016 7:27 AM [facility] HISTORICAL RESULTS RDW 12.2 11.6 - 14.8 % 01/25/2016 7:27 AM [facility] HISTORICAL RESULTS Plt Count 384 124 - 400 x10 3/ul 01/25/2016 7:27 AM [facility] HISTORICAL RESULTS MPV 9.0 7.4 - 10.4 fl 01/25/2016 7:27 AM [facility] HISTORICAL RESULTS Neut % 81.1 37.0 - 85.0 % 01/25/2016 7:27 AM [facility] HISTORICAL RESULTS Immature Gran % 0.4 0.0 - 3.0 % 01/25/2016 7:27 AM [facility] HISTORICAL RESULTS Lymph % 8.7 5.0 - 45.0 % 01/25/2016 7:27 AM [facility] HISTORICAL RESULTS Faulk % 5.6 3.0 - 15.0 % 01/25/2016 7:27 AM [facility] HISTORICAL RESULTS Eos % 3.4 0.0 - 7.0 % 01/25/2016 7:27 AM [facility] HISTORICAL RESULTS Baso % 0.8 0.0 - 2.0 % 01/25/2016 7:27 AM [facility] HISTORICAL RESULTS Absolute Neuts (auto) 9.0(H) 1.7 - 8.7 x10 3/ul 01/25/2016 7:27 AM [facility] HISTORICAL RESULTS Immature Gran # 0.0 0.0 - 0.3 x10 3/ul 01/25/2016 7:27 AM [facility] HISTORICAL RESULTS Absolute Lymphs (auto) 1.0 0.2 - 4.6 x10 3/ul 01/25/2016 7:27 AM [facility] HISTORICAL RESULTS Absolute Monos (auto) 0.6 0.1 - 1.5 x10 3/ul 01/25/2016 7:27 AM [facility] HISTORICAL RESULTS Absolute Eos (auto) 0.4 0.0 - 0.7 x10 3/ul 01/25/2016 7:27 AM [facility] HISTORICAL RESULTS Absolute Basos (auto) 0.1 0.0 - 0.2 x10 3/ul 01/25/2016 7:27 AM [facility] HISTORICAL RESULTS 01/25/2016 7:09 AM CDT 01/25/2016 7:20 AM CDT us Tate Moreno MD LAB BLOOD ORDERABLES Final Resu lt [facility] HISTORICAL RESULTS * (ABNORMAL) Urinalysis (01/25/2016 12:00 AM CDT) Ur Collection Type INDWELLING CATH 01/25/2016 7:44 AM [facility] HISTORICAL RESULTS Urine Color YELLOW YELLOW 01/25/2016 7:44 AM [facility] HISTORICAL RESULTS Urine Clarity CLEAR CLEAR 01/25/2016 7:44 AM [facility] HISTORICAL RESULTS Urine Glucose (UA) NORMAL NORMAL mg/dL 01/25/2016 7:44 AM [facility] HISTORICAL RESULTS Urine Bilirubin NEGATIVE NEGATIVE mg/dl 01/25/2016 7:44 AM [facility] HISTORICAL RESULTS Urine Ketones NEGATIVE NEGATIVE mg/dL 01/25/2016 7:44 AM [facility] HISTORICAL RESULTS Ur Specific [place] 1.006 1.005 - 1.025 01/25/2016 7:44 AM [facility] HISTORICAL RESULTS Urine Blood 0.03(H) NEGATIVE mg/dl 01/25/2016 7:44 AM [facility] HISTORICAL RESULTS Urine pH 7.0 5.0 - 8.0 01/25/2016 7:44 AM [facility] HISTORICAL RESULTS Urine Protein NEGATIVE NEGATIVE mg/dL 01/25/2016 7:44 AM [facility] HISTORICAL RESULTS Urine Urobilinogen NORMAL NORMAL mg/dL 01/25/2016 7:44 AM [facility] HISTORICAL RESULTS Urine Nitrite NEGATIVE NEGATIVE 01/25/2016 7:44 AM [facility] HISTORICAL RESULTS Ur Leukocyte Esterase NEGATIVE NEGATIVE Ian/ul 01/25/2016 7:44 AM [facility] HISTORICAL RESULTS Ur Microscopic Review Not Indicated 01/25/2016 7:44 AM [facility] HISTORICAL RESULTS 01/25/2016 01/25/2016 7:2 1 AM CDT us Tate Moreno MD LAB URINE ORDERABLES Final Resu lt [facility] * XR Chest 1 View (01/25/2016 12:00 AM CDT) Anatomical Region Laterality Modality Body, Chest N/A Radiographic Tawanna ging 01/25/2016 Impressions 01/25/2016 7:34 AM CDT ??Normal and unchanged since August 17 THIS IS AN ELECTRONICALLY VERIFIED REPORT 01/25/2016 7:31 AM: ??Leo Dunaway M.D., Ph.D. ?? Leo Dunaway M.D., Ph.D. WM: 07:31 AM 07:31 AM [facility] [EOD] Narrative 01/25/2016 7:34 AM [...] M.D., Ph.D. 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 difficile Comment:Germ watcher auto flagging 01/15/2014 01/15/2014 documented as of this encounter
--- OUTSIDE RECORDS SUMMARY | 2024-04-03 23:59 | XMS_ITS | Encounter Summary ---
Author Organization [facility] Healthcare Address [address] [place] [address] Care Team Providers Care Director Of Dietary Name Role Phone Unavailable Primary Care Provider Unavailabl e Encounter Details Date Type Department Care Team (Latest Contact Info) Description 07/01/2015 4:41 PM CDT - 07/05/2015 2:37 PM CDT Hospital Encounter 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 HISTORICAL RESULTS Potassium 3.4 3.3 - 5.1 mmol/L 07/05/2015 7:[address] [facility] HISTORICAL RESULTS Chloride 100 96 - 108 mmol/L 07/05/2015 7:[address] [facility] HISTORICAL RESULTS Carbon Dioxide 26 22 - 32 mmol/L 07/05/2015 7:[address] [facility] HISTORICAL RESULTS Anion Gap 12 7 - 16 07/05/2015 7:[address] [facility] HISTORICAL RESULTS Glucose 104(H) 70 - 100 mg/dL 07/05/2015 7:[address] [facility] HISTORICAL RESULTS BUN 12 8 - 23 mg/dL 07/05/2015 7:[address] [facility] HISTORICAL RESULTS Creatinine 0.9 0.5 - 1.3 mg/dL 07/05/2015 7:[address] [facility] HISTORICAL RESULTS Comment: NOTE: Estimated GFR (Cockroft-Gault) will NOT be calculated unless patient Height and Weight were entered. Also, Kidney Disease Stage (GFR) and Estimated GFR (Cockroft-Gault) will NOT be calculated if Creatinine result is <0.2. Kidney Disease Stage > 90 mL/MIN 07/05/2015 7:[address] [facility] HISTORICAL RESULTS Comment: NOTE; ??The GFR is [...] Total Protein 7.2 6.4 - 8.3 g/dL 07/05/2015 7:[address] [facility] HISTORICAL RESULTS Albumin 3.1(L) 3.5 - 5.2 g/dL 07/05/2015 7:[address] [facility] HISTORICAL RESULTS Globulin 4.1(H) 2.3 - 3.5 gm/dL Albumin/Globulin Ratio 0.8(L) 1.1 - 1.8 Total Bilirubin 0.3 0.0 - 1.2 mg/dL AST 18 0 - 40 U/L 07/05/2015 7:[address] [facility] HISTORICAL RESULTS ALT 22 0 - 41 U/L 07/05/2015 7:[address] [facility] HISTORICAL RESULTS Alkaline Phosphatase 59 40 - 129 U/L 07/05/2015 7:[address] [facility] HISTORICAL RESULTS 07/05/2015 7:02 AM CDT 07/05/2015 7:30 AM CDT Dalia Castro MD LAB BLOOD ORDERABLES Final Result [facility] HISTORICAL RESULTS * (ABNORMAL) CBC with auto differential (07/05/2015 7:02 AM CDT) WBC 12.3(H) 4.6 - 10.2 x10 3/ul 07/05/2015 7:39 AM CDT [facility]IST[facility] RBC 3.09(L) 4.11 - 5.71 x10 6/ul 07/05/2015 7:39 AM CDT [facility] HISTORICAL RESULTS Hemoglobin 10.4(L) 13.0 - 17.0 g/dl Hct 30.6(L) 38.2 - 48.5 % MCV 99.0(H) 80.0 - 97.0 fl 07/05/2015 7:39 AM CDT [facility]IST[facility] RES[facility] MCH 33.7(H) 27.0 - 31.2 pg 07/05/2015 7:39 AM CDT [facility]IST[facility] RESULTS MCHC 34.0 31.8 - 35.4 g/dl 07/05/2015 7:39 AM CDT [facility] HISTORICAL RESULTS RDW 12.6 11.6 - 14.8 % 07/05/2015 7:39 AM CDT [facility]IST[facility] RESULTS Plt Count 369 124 - 400 x10 3/ul 07/05/2015 7:39 AM CDT [facility]IST[facility] RESULTS MPV 9.3 7.4 - 10.4 fl 07/05/2015 7:39 AM CDT [facility] Differential Method AUTOMATED DIFF --------- -- 07/05/2015 7:39 AM CDT [facility]IST[facility] RESULTS Neut % 77.2 37.0 - 85.0 % 07/05/2015 7:39 AM CDT [facility]IST[facility]ULTS Immature Gran % 1.4 0.0 - 3.0 % 07/05/2015 7:39 AM CDT [facility]IST[facility] RESULTS Lymph % 12.1 5.0 - 45.0 % [place] % 4.1 3.0 - 15.0 % Eos % 4.6 0.0 - 7.0 % 07/05/2015 7:39 AM CDT [facility]IST[facility] RESULTS Baso % 0.6 0.0 - 2.0 % 07/05/2015 7:39 AM CDT [facility] HISTORICAL RESULTS ABSOLUTE COUNTS ABSOLUTE COUNTS --------- -- Absolute Neuts (auto) 9.5(H) 1.7 - 8.7 x10 3/ul Immature Gran # 0.2 0.0 - 0.3 x10 3/ul Absolute Lymphs (auto) 1.5 0.2 - 4.6 x10 3/ul Absolute Monos (auto) 0.5 0.1 - 1.5 x10 3/ul Absolute Eos (auto) 0.6 0.0 - 0.7 x10 3/ul Absolute Basos (auto) 0.1 0.0 - 0.2 x10 3/ul 07/05/2015 7:39 AM CDT [facility] HISTORICAL RESULTS 07/05/2015 7:02 AM CDT 07/05/2015 7:30 AM CDT us Tracie Hinds LAB BLOOD ORDERABLES Final Res ult [facility] HISTORICAL RESULTS * Phosphorus (07/05/2015 7:02 AM CDT) Phosphorus 4.5 2.5 - 4.5 mg/dL 07/05/2015 7:57 AM CDT [facility] HISTORICAL RESULTS 07/05/2015 7:02 AM CDT 07/05/2015 7:30 AM CDT us Dalia Castro MD LAB BLOOD ORDERABLES Final Result [facility] HISTORICAL RESULTS * XR Chest 1 View [...] Howard M.D. CH:jasmin 09:25 AM 09:25 AM [facility] [EOD] Kim COLUNGA IMG XR PROCEDURES Final Resu lt * (ABNORMAL) Comprehensive metabolic panel (07/04/2015 6:10 AM CDT) Sodium 144 135 - 145 mmol/L 07/04/2015 6:59 AM T [employer] HISTORICAL RESULTS Potassium 3.8 3.3 - 5.1 mmol/L 07/04/2015 6:59 AM [facility] [employer] HISTORICAL RESULTS Chloride 105 96 - 108 mmol/L 07/04/2015 6:59 AM [facility] Carbon Dioxide 28 22 - 32 mmol/L 07/04/2015 6:59 AM [facility] HIST[facility] RESULTS Anion Gap 11 7 - 16 07/04/2015 6:59 AM [facility] [email or web address] [facility] HISTOR[facility] RESULTS Glucose 104(H) 70 - 100 mg/dL 07/04/2015 6:59 AM T [facility]ISTOR[facility] RESULTS BUN 12 8 - 23 mg/dL 07/04/2015 6:59 AM [facility]IST[facility]ULTS Creatinine 0.9 0.5 - 1.3 mg/dL 07/04/2015 6:59 AM [facility]IST[facility] RESULTS Comment: NOTE: Estimated GFR (Cockroft-Gault) will NOT be calculated unless patient Height and Weight were entered. Also, Kidney Disease Stage (GFR) and Estimated GFR (Cockroft-Gault) will NOT be calculated if Creatinine result is <0.2. Kidney Disease Stage > 90 mL/MIN 07/04/2015 6:59 AM [facility] HISTORICAL RESULTS Comment: NOTE; ??The GFR is [...] GFR (Cockcroft-G) 94 ml/MIN 07/04/2015 6:59 AM [facility] [employer] HISTORICAL RESULTS Calcium 9.1 8.8 - 10.2 mg/dL 07/04/2015 6:59 AM [facility] [employer] HISTORICAL RESULTS Total Protein 7.0 6.4 - 8.3 g/dL 07/04/2015 6:59 AM [facility] [employer] HISTORICAL RESULTS Albumin 3.0(L) 3.5 - 5.2 g/dL 07/04/2015 6:59 AM [facility] [employer] HISTORICAL RESULTS Globulin 4.0(H) 2.3 - 3.5 gm/dL 07/04/2015 6:59 AM [facility] [employer] HISTORICAL RESULTS Albumin/Globulin Ratio 0.8(L) 1.1 - 1.8 07/04/2015 6:59 AM [facility] [employer] HISTORICAL RESULTS Total Bilirubin 0.3 0.0 - 1.2 mg/dL 07/04/2015 6:59 AM [facility] [employer] HISTORICAL RESULTS AST 20 0 - 40 U/L 07/04/2015 6:59 AM [facility] [employer] HISTORICAL RESULTS ALT 21 0 - 41 U/L 07/04/2015 6:59 AM [facility] [employer] HISTORICAL RESULTS Alkaline Phosphatase 59 40 - 129 U/L 07/04/2015 6:59 AM [facility] [employer] HISTORICAL RESULTS Comment:Results reviewed 07/04/2015 6:10 AM CDT 07/04/2015 6:29 AM CDT [facility] LAB BLOOD ORDERABLES Final Result [facility] HISTORICAL RESULTS * (ABNORMAL) CBC with auto differential (07/04/2015 6:10 AM CDT) WBC 10.2 4.6 - 10.2 x10 3/ul 07/04/2015 6:42 AM CDT [facility] [employer] HISTORICAL RESULTS RBC 2.97(L) 4.11 - 5.71 x10 6/ul 07/04/2015 6:42 AM CDT [facility] [employer] HISTORICAL RESULTS Hemoglobin 9.8(L) 13.0 - 17.0 g/dl 07/04/2015 6:42 AM CDT [facility] [employer] HISTORICAL RESULTS Hct 29.6(L) 38.2 - 48.5 % 07/04/2015 6:42 AM CDT [facility] [employer] HISTORICAL RESULTS MCV 99.7(H) 80.0 - 97.0 fl 07/04/2015 6:42 AM CDT [facility] [employer] HISTORICAL RESULTS MCH 33.0(H) 27.0 - 31.2 pg 07/04/2015 6:42 AM CDT [facility] [employer] HISTORICAL RESULTS MCHC 33.1 31.8 - 35.4 g/dl 07/04/2015 6:42 AM CDT [facility] [employer] HISTORICAL RESULTS RDW 12.6 11.6 - 14.8 % 07/04/2015 6:42 AM CDT [facility] [employer] HISTORICAL RESULTS Plt Count 313 124 - 400 x10 3/ul 07/04/2015 6:42 AM CDT [facility] [employer] HISTORICAL RESULTS MPV 9.2 7.4 - 10.4 fl 07/04/2015 6:42 AM CDT [facility] [employer] HISTORICAL RESULTS Differential Method AUTOMATED DIFF --------- -- 07/04/2015 6:42 AM CDT [facility] [employer] HISTORICAL RESULTS Neut % 72.7 37.0 - 85.0 % 07/04/2015 6:42 AM CDT [facility] [employer] HISTORICAL RESULTS Immature Gran % 0.9 0.0 - 3.0 % 07/04/2015 6:42 AM CDT [facility] [email or web address] [facility] HISTOR[facility] RESULTS Lymph % 15.4 5.0 - 45.0 % 07/04/2015 6:42 AM CDT [facility] HISTORICAL RESULTS [place] % 5.5 3.0 - 15.0 % 07/04/2015 6:[address] [facility] HISTORICAL RESULTS Eos % 5.0 0.0 - 7.0 % 07/04/2015 6:[address] [facility] HISTORICAL RESULTS Baso % 0.5 0.0 - 2.0 % ABSOLUTE COUNTS ABSOLUTE COUNTS --------- -- Absolute Neuts (auto) 7.5 1.7 - 8.7 x10 3/ul 07/04/2015 6:[address] [facility] HISTORICAL RESULTS Immature Gran # 0.1 0.0 - 0.3 x10 3/ul 07/04/2015 6:[address] [facility] HISTORICAL RESULTS Absolute Lymphs (auto) 1.6 0.2 - 4.6 x10 3/ul 07/04/2015 6:[address] [facility] HISTORICAL RESULTS Absolute Monos (auto) 0.6 0.1 - 1.5 x10 3/ul 07/04/2015 6:[address] [facility] HISTORICAL RESULTS Absolute Eos (auto) 0.5 0.0 - 0.7 x10 3/ul 07/04/2015 6:[address] [facility] HISTORICAL RESULTS Absolute Basos (auto) 0.1 0.0 - 0.2 x10 3/ul 07/04/2015 6:[address] [facility] HISTORICAL RESULTS 07/04/2015 6:10 AM CDT 07/04/2015 6:29 AM CDT us Tracie Hinds LAB BLOOD ORDERABLES Final Res ult [facility] HISTORICAL RESULTS * Phosphorus (07/04/2015 6:10 AM CDT) Phosphorus 3.5 2.5 - 4.5 mg/dL 07/04/2015 6:10 AM CDT 07/04/2015 6:29 AM CDT Dalia Castro MD LAB BLOOD ORDERABLES Final Result Performing Organization Address [facility] de Phone Number [facility] HISTORICAL RESULTS * Magnesium (07/04/2015 6:10 AM CDT) Magnesium 1.6 1.6 - 2.6 mg/dL 07/04/2015 6:59 AM CDT [facility] HISTORICAL RESULTS Comment:Magnesium sulfate th erapy: 3.0-9.1 mg/dL 07/04/2015 6:10 AM CDT 07/04/2015 6:29 AM CDT Dalia Castro MD LAB BLOOD ORDERABLES Final Result Performing Organization Address [facility] Number [facility] HISTORICAL RESULTS * Clostridium difficile assay (07/03/2015 8:45 AM CDT) C, difficile (LAMP) NEGATIVE NEGATIVE 07/03/2015 3:10 PM CDT [facility] HISTORICAL RESULTS Comment: Negative test: C. difficile [...] 12:06 PM CDT Narrative [facility] HISTORICAL RESULTS - 07/03/2015 3:10 PM CDT Collected By af Tracie Hinds LAB MICROBIOLOGY - GENERAL ORD ERABLES Final Result Performing Organization Address [facility] de Phone Number [facility] HISTORICAL RESULTS * (ABNORMAL) PROCALCITONIN Post-antibiotic (07/03/2015 6:15 AM CDT) PROCALCITONIN Post-antibiotic 2.96(H) 0 - 0.24 ng/mL 07/03/2015 8:48 AM CDT [employer] HISTORICAL RESULTS Comment: Guidelines for use with [...] Paula DO LAB BLOOD ORDERABLES Final Result [employer] HISTORICAL RESULTS * (ABNORMAL) Hemogram with manual differential (07/03/2015 6:15 AM CDT) WBC 13.5(H) 4.6 - 10.2 x10 3/ul 07/03/2015 6:37 AM CDT [employer] HISTORICAL RESULTS RBC 3.11(L) 4.11 - 5.71 x10 6/ul 07/03/2015 6:37 AM T [employer] HISTORICAL RESULTS Hemoglobin 10.5(L) 13.0 - 17.0 g/dl 07/03/2015 6:37 AM T [employer] HISTORICAL RESULTS Hct 30.6(L) 38.2 - 48.5 % 07/03/2015 6:37 AM T [employer] HISTORICAL RESULTS MCV 98.4(H) 80.0 - 97.0 fl 07/03/2015 6:37 AM CDT [employer] HISTORICAL RESULTS MCH 33.8(H) 27.0 - 31.2 pg 07/03/2015 6:37 AM T [employer] HISTORICAL RESULTS MCHC 34.3 31.8 - 35.4 g/dl 07/03/2015 6:37 AM T [employer] HISTORICAL RESULTS RDW 12.7 11.6 - 14.8 % 07/03/2015 6:37 AM [employer] HISTORICAL RESULTS Plt Count 329 124 - 400 x10 3/ul 07/03/2015 6:37 AM [facility]IST[facility] MPV 9.4 7.4 - 10.4 fl 07/03/2015 6:37 AM [facility]IST[facility] RESULTS MANUAL DIFF MANUAL DIFF -------- --- 07/03/2015 7:20 AM [facility]IST[facility] RESULTS Neutrophils % (Manual) 74 37 - 80 % 07/03/2015 7:20 AM [employer] [facility] [email or web address] [facility] HISTOR[facility] RESULTS Lymphocytes % (Manual) 16 10 - 51 % 07/03/2015 7:20 AM [employer] [facility] [email or web address] [facility]ULTS Monocytes % (Manual) 6 0 - 12 % 07/03/2015 7:20 AM [employer] [facility] [email or web address] [facility] RESULTS Eosinophils % (Manual) 4 0 - 7 % 07/03/2015 7:20 AM [employer] [facility] [email or web address] [facility]IST[facility] RESULTS ABSOLUTE COUNTS ABSOLUTE COUNTS -------- --- 07/03/2015 7:20 AM [employer] [facility] [email or web address] [facility] RESULTS Abs Neuts cells/mm3 9990 /ul 07/03/2015 7:20 AM [employer] [facility] [email or web address] [facility] RESULTS Absolute Neutrophils 10.0(H) 1.7 - 8.7 x10 3/ul 07/03/2015 7:20 AM [employer] [facility] [email or web address] [facility] RESULTS Absolute Lymphocytes 2.2 0.2 - 4.6 x10 3/ul 07/03/2015 7:20 AM [employer] [facility] Absolute Monocytes 0.8 0.1 - 1.5 x10 3/ul 07/03/2015 7:20 AM [employer] [facility]ISTOR[facility] RESULTS Absolute Eosinophils 0.5 0.0 - 0.7 x10 3/ul 07/03/2015 7:20 AM [facility]IST[facility] RESULTS Platelet Evaluation AGREE AGREE 07/03/2015 7:20 AM [facility] [email or web address] [facility]IST[facility] RESULTS Comment:Slide review of plat elets correlates with instrument count. Polychromasia 1+ 07/03/2015 7:20 AM [employer] [facility] [email or web address] [facility]IST[facility] RESULTS Poikilocytosis 2+ 07/03/2015 7:20 AM [facility] [email or web address] [facility]ULTS 07/03/2015 6:15 AM CDT 07/03/2015 6:24 AM CDT Watson Garcia MD LAB BLOOD ORDERABLES F inal Result Performing Organization Address [facility] Co de Phone Number [facility] HISTORICAL RESULTS * Phosphorus (07/03/2015 6:14 AM CDT) Phosphorus 3.1 2.5 - 4.5 mg/dL 07/03/2015 6:48 AM CDT [facility] HISTORICAL RESULTS 07/03/2015 6:14 AM CDT 07/03/2015 6:24 AM CDT Dalia Castro MD LAB BLOOD ORDERABLES Final Result Performing Organization Address [facility] Phone Number [facility] HISTORICAL RESULTS * Magnesium (07/03/2015 6:14 AM CDT) Magnesium 1.6 1.6 - 2.6 mg/dL 07/03/2015 6:48 AM CDT [facility] HISTORICAL RESULTS Comment:Magnesium sulfate th erapy: 3.0-9.1 mg/dL 07/03/2015 6:14 AM CDT 07/03/2015 6:24 AM CDT Dalia Castro MD LAB BLOOD ORDERABLES Final Result Performing Organization Address [facility] de Phone Number [facility] HISTORICAL RESULTS * (ABNORMAL) Comprehensive metabolic panel (07/03/2015 6:14 AM CDT) Sodium 143 135 - 145 mmol/L Potassium 3.4 3.3 - 5.1 mmol/L Chloride 102 96 - 108 mmol/L Carbon Dioxide 29 22 - 32 mmol/L Anion Gap 12 7 - 16 07/03/2015 7:[address] [facility] HISTORICAL RESULTS Glucose 120(H) 70 - 100 mg/dL 07/03/2015 7:08 AM [facility] BUN 12 8 - 23 mg/dL 07/03/2015 7:[address] [facility] HISTORICAL RESULTS Creatinine 0.9 0.5 - 1.3 mg/dL 07/03/2015 7:[address] [facility] HISTORICAL RESULTS Comment: NOTE: Estimated GFR (Cockroft-Gault) will NOT be calculated unless patient Height and Weight were entered. Also, Kidney Disease Stage (GFR) and Estimated GFR (Cockroft-Gault) will NOT be calculated if Creatinine result is <0.2. Kidney Disease Stage > 90 mL/MIN 07/03/2015 7:[address] [facility] HISTORICAL RESULTS Comment: NOTE; ??The GFR is [...] GFR (Cockcroft-G) 94 ml/MIN 07/03/2015 7:08 AM [facility]IST[facility]ULTS Calcium 9.0 8.8 - 10.2 mg/dL 07/03/2015 7:08 AM [facility]IST[facility] RESULTS Total Protein 7.6 6.4 - 8.3 g/dL 07/03/2015 7:08 AM [employer] [facility] HISTORICAL RESULTS Albumin 3.3(L) 3.5 - 5.2 g/dL 07/03/2015 7:[address] [facility] HISTORICAL RESULTS Globulin 4.3(H) 2.3 - 3.5 gm/dL 07/03/2015 7:[address] [facility] HISTORICAL RESULTS Albumin/Globulin Ratio 0.8(L) 1.1 - 1.8 07/03/2015 7:[address] [facility] HISTORICAL RESULTS Total Bilirubin 0.4 0.0 - 1.2 mg/dL 07/03/2015 7:[address] [facility] HISTORICAL RESULTS AST 24 0 - 40 U/L 07/03/2015 7:[address] [facility] HISTORICAL RESULTS ALT 15 0 - 41 U/L 07/03/2015 7:[address] [facility] HISTORICAL RESULTS Alkaline Phosphatase 153(H) 40 - 129 U/L 07/03/2015 7:[address] [facility] HISTORICAL RESULTS Comment:Results reviewed 07/03/2015 6:14 AM CDT 07/03/2015 6:24 AM CDT us Watson Garcia MD LAB BLOOD ORDERABLES F inal Result [facility] HISTORICAL RESULTS * Magnesium (07/02/2015 4:40 AM CDT) [facility] Magnesium 1.7 1.6 - 2.6 mg/dL Comment:Magnesium sulfate th erapy: 3.0-9.1 mg/dL 07/02/2015 4:40 AM CDT 07/02/2015 4:43 AM CDT Narrative [facility] HISTORICAL RESULTS - 07/02/2015 5:09 AM CDT Line Draw by RN ?? us Dalia Castro MD LAB BLOOD ORDERABLES Final Result [facility] HISTORICAL RESULTS * (ABNORMAL) Comprehensive metabolic panel (07/02/2015 4:40 AM CDT) [facility] Sodium 142 135 - 145 mmol/L 07/02/2015 5:[address] [facility] HISTORICAL RESULTS Potassium 3.2(L) 3.3 - 5.1 mmol/L 07/02/2015 5:[address] [facility] HISTORICAL RESULTS Chloride 101 96 - 108 mmol/L 07/02/2015 5:[address] [facility] HISTORICAL RESULTS Carbon Dioxide 29 22 - 32 mmol/L 07/02/2015 5:[address] [facility] HISTORICAL RESULTS Anion Gap 12 7 - 16 07/02/2015 5:[address] [facility] HISTORICAL RESULTS Glucose 117(H) 70 - 100 mg/dL 07/02/2015 5:[address] [facility] HISTORICAL RESULTS BUN 15 8 - 23 mg/dL 07/02/2015 5:[address] [facility] HISTORICAL RESULTS Creatinine 0.9 0.5 - 1.3 mg/dL 07/02/2015 5:[address] [facility] HISTORICAL RESULTS Comment: NOTE: Estimated GFR (Cockroft-Gault) will NOT be calculated unless patient Height and Weight were entered. Also, Kidney Disease Stage (GFR) and Estimated GFR (Cockroft-Gault) will NOT be calculated if Creatinine result is <0.2. Kidney Disease Stage > 90 mL/MIN 07/02/2015 5:[address] [facility] HISTORICAL RESULTS Comment: NOTE; ??The GFR is [...] Phosphatase 61 40 - 129 U/L 07/02/2015 5:[address] [facility] HISTORICAL RESULTS 07/02/2015 4:40 AM CDT 07/02/2015 4:43 AM CDT Narrative [facility] HISTORICAL RESULTS - 07/02/2015 5:09 AM CDT Line Draw by RN ?? us Watson Garcia MD LAB BLOOD ORDERABLES F inal Result [facility] HISTORICAL RESULTS * (ABNORMAL) Hemogram with manual differential (07/02/2015 4:40 AM CDT) Pathologist [facility] WBC 15.4(H) 4.6 - 10.2 x10 3/ul 07/02/2015 4:52 AM CDT [facility] [employer] HISTORICAL RESULTS RBC 3.03(L) 4.11 - 5.71 x10 6/ul 07/02/2015 4:52 AM CDT [facility] HISTORICAL RESULTS Hemoglobin 10.3(L) 13.0 - 17.0 g/dl 07/02/2015 4:52 AM CDT [facility] [employer] HISTORICAL RESULTS Hct 30.0(L) 38.2 - 48.5 % 07/02/2015 4:52 AM CDT [facility] [email or web address] [facility] HISTORICAL RESULTS MCV 99.0(H) 80.0 - 97.0 fl 07/02/2015 4:52 AM CDT [facility] [email or web address] [facility] HISTORICAL RESULTS MCH 34.0(H) 27.0 - 31.2 pg 07/02/2015 4:52 AM CDT [facility] [email or web address] [facility] HISTORICAL RESULTS MCHC 34.3 31.8 - 35.4 g/dl 07/02/2015 4:52 AM T [facility] [employer] HISTORICAL RESULTS RDW 12.6 11.6 - 14.8 % 07/02/2015 4:52 AM CDT [facility] [employer] HISTORICAL RESULTS Plt Count 293 124 - 400 x10 3/ul 07/02/2015 4:52 AM CDT [facility] [employer] HISTORICAL RESULTS MPV 9.6 7.4 - 10.4 fl 07/02/2015 4:52 AM CDT [facility] [employer] HISTORICAL RESULTS MANUAL DIFF MANUAL DIFF --------- -- 07/02/2015 5:25 AM CDT [facility] [employer] HISTORICAL RESULTS Neutrophils % (Manual) 88(H) 37 - 80 % 07/02/2015 5:25 AM CDT [facility] [employer] HISTORICAL RESULTS Lymphocytes % (Manual) 5(L) 10 - 51 % 07/02/2015 5:25 AM CDT [facility] [employer] HISTORICAL RESULTS Monocytes % (Manual) 7 0 - 12 % 07/02/2015 5:25 AM CDT [facility] [email or web address] [facility] HISTORICAL RESULTS ABSOLUTE COUNTS ABSOLUTE COUNTS --------- -- 07/02/2015 5:25 AM CDT [facility] [email or web address] [facility] HISTORICAL RESULTS Abs Neuts cells/mm3 75511 /ul 07/02/2015 5:25 AM CDT [facility] HISTORICAL RESULTS Absolute Neutrophils 13.6(H) 1.7 - 8.7 x10 3/ul 07/02/2015 5:25 AM CDT [facility] HISTORICAL RESULTS Absolute Lymphocytes 0.8 0.2 - 4.6 x10 3/ul 07/02/2015 5:25 AM CDT [facility] HISTORICAL RESULTS Absolute Monocytes 1.1 0.1 - 1.5 x10 3/ul 07/02/2015 5:25 AM CDT [facility] HISTORICAL RESULTS Platelet Evaluation AGREE AGREE 07/02/2015 5:25 AM CDT [facility] HISTORICAL RESULTS Comment:Slide review of plat elets correlates with instrument count. 07/02/2015 4:40 AM CDT 07/02/2015 4:43 AM CDT [facility] HISTORICAL RESULTS - 07/02/2015 5:25 AM CDT Line Draw by RN ?? Watson Garcia MD LAB BLOOD ORDERABLES F inal Result Performing Organization Address [facility]/ZIP Co de Phone Number [facility] HISTORICAL RESULTS * (ABNORMAL) B-type natriuretic peptide (07/02/2015 4:37 AM CDT) [facility] Signature B-Natriuretic Peptide 168(H) 0 - 100 pg/mL 07/02/2015 9:04 AM CDT [facility] HISTORICAL RESULTS Comment: B Natriutetic Peptide METHOD: ??Siemens Centaur [...] 4:37 AM CDT 07/02/2015 4:40 AM CDT [facility] HISTORICAL RESULTS - 07/02/2015 9:04 AM CDT Dalia Castro MD LAB BLOOD ORDERABLES Final Result Performing Organization Address [facility] de Phone Number [facility] HISTORICAL RESULTS * Influenza A/B antigens, rapid (07/02/2015 4:00 AM CDT) [facility] Influenza A Ag NEGATIVE NEGATIVE 07/02/2015 4:38 AM CDT [facility] HISTORICAL RESULTS Influenza B Ag NEGATIVE NEGATIVE Comment: A NEGATIVE RESULT DOES NOT ELIMINATE THE POSSIBILITY OF AN ?? INFLUENZA A OR B INFECTION. ??INADEQUATE SPECIMEN COLLECTION ?? OR IMPROPER SAMPLE HANDLING/TRANSPORT, OR LOW LEVELS OF ?? VIRAL SHEDDING MAY YIELD A FALSE NEGATIVE RESULT. 07/02/2015 4:00 AM CDT 07/02/2015 4:20 AM CDT Narrative [facility] HISTORICAL RESULTS - 07/02/2015 4:38 AM CDT Dalia Castro MD LAB MICROBIOLOGY - GENERAL ORDERABLES Final Result Performing Organization Address [facility] de Phone Number [facility] HISTORICAL RESULTS * (ABNORMAL) Urinalysis reflex to microscopic and culture (07/01/2015 8:15 PM CDT) [facility] Ur Collection Type INDWELLING CATH 07/01/2015 8:[address] [facility] HISTORICAL RESULTS Ur Culture Indicated? C&S NOT INDICATED 07/01/2015 9:[address] [facility] HISTORICAL RESULTS Urine Color LAKE YELLOW 07/01/2015 9:[address] [facility] HISTORICAL RESULTS Urine Clarity Slightly-Clou dy CLEAR 07/01/2015 9:[address] [facility] HISTORICAL RESULTS Urine Glucose (UA) NORMAL NORMAL mg/dL 07/01/2015 9:[address] [facility] HISTORICAL RESULTS Urine Bilirubin NEGATIVE NEGATIVE mg/dl 07/01/2015 9:[address] [facility] HISTORICAL RESULTS Urine Ketones NEGATIVE NEGATIVE mg/dL 07/01/2015 9:[address] [facility] HISTORICAL RESULTS Ur Specific [place] 1.020 1.005 - 1.025 07/01/2015 9:[address] [facility] HISTORICAL RESULTS Urine Blood 0.2(H) NEGATIVE mg/dl 07/01/2015 9:[address] [facility] HISTORICAL RESULTS Urine pH 5.0 5.0 - 8.0 07/01/2015 9:[address] [facility] HISTORICAL RESULTS Urine Protein NEGATIVE NEGATIVE mg/dL 07/01/2015 9:[address] [facility] HISTORICAL RESULTS Urine Urobilinogen 2(H) NORMAL mg/dL 07/01/2015 9:[address] [facility] HISTORICAL RESULTS Urine Nitrite NEGATIVE NEGATIVE Ur Leukocyte Esterase NEGATIVE NEGATIVE Ian/ul 07/01/2015 9:[address] [facility] HISTORICAL RESULTS Ur Microscopic Review Indicated or Ordered 07/01/2015 9:[address] [facility] HISTORICAL RESULTS Urine RBC 12 0 - 2 /HPF 07/01/2015 9:[address] [facility] HISTORICAL RESULTS Urine WBC 3 0 - 2 /HPF 07/01/2015 9:[address] [facility] HISTORICAL RESULTS Urine Mucus RARE /LPF 07/01/2015 9:[address] [facility] HISTORICAL RESULTS Ur Squamous Epith Cells Rare /HPF 07/01/2015 9:[address] [facility] HISTORICAL RESULTS Hyaline Casts 29 0 - 2 /LPF 07/01/2015 9:[address] [facility] HISTORICAL RESULTS 07/01/2015 8:15 PM CDT 07/01/2015 8:40 PM CDT [facility] HISTORICAL RESULTS - 07/01/2015 9:17 PM CDT Alli Paula DO LAB MICROBIOLOGY - GENERAL ORDERABLES Final Result [facility] HISTORICAL RESULTS * (ABNORMAL) Strep pneumoniae antigen, urine (07/01/2015 8:15 PM CDT) Ur Strep pneumoniae Ag POSITIVE( H) NEGATIVE 07/01/2015 9:[address] [facility] HISTORICAL RESULTS 07/01/2015 8:15 PM CDT 07/01/2015 8:40 PM CDT [facility] HISTORICAL RESULTS - 07/01/2015 9:05 PM CDT Collected By rmd ?? Urine collection method Indwelling catheter Dalia Castro MD LAB MICROBIOLOGY - GENERAL ORDERABLES Final Result Performing Organization Address [facility] de Phone Number [facility] HISTORICAL RESULTS * Legionella pneumophilia antigen, urine (07/01/2015 8:15 PM CDT) URINE LEGIONELLA PNEUMO AG Negative Negative 07/03/2015 4:39 PM CDT [facility] HISTORICAL RESULTS Comment: Sample is negative for the presence of L. pneumophila ?? serogroup 1 antigen in urine, suggesting no recent or ?? current infection. Legionnaires' Disease cannot be ruled ?? out since other serogroups and species may also cause ?? disease. ?? INTERPRETIVE INFORMATION: Legionella pneumophila Antigen, ?? Urine ?? This assay detects Legionella pneumophila serogroup one (1) ?? antigen. ?? Performed by [employer], ?? [address] [place] [id number] ?? [email or web address], Curly Knapp MD, Lab. Director ?? 07/01/2015 8:15 PM CDT 07/01/2015 8:40 PM CDT Narrative [facility] HISTORICAL RESULTS - 07/03/2015 4:39 PM CDT Collected By:d ?? Urine collection method Indwelling catheter Dalia Castro MD LAB MICROBIOLOGY - GENERAL ORDERABLES Final Result Performing Organization Address [facility] de Phone Number [facility] HISTORICAL RESULTS * Cortisol (07/01/2015 7:54 PM CDT) Cortisol 22.0 ug/dL 07/01/2015 8:30 PM CDT [facility] HISTORICAL RESULTS Comment: CORTISOL Reference Ranges Morning hours ?? 7 - 10 AM: ??6.2 - 19.4 ug/dL Afternoon hours 4 - 8 PM: ?? 2.3 - 11.9 ug/dL 07/01/2015 7:54 PM CDT 07/01/2015 7:57 PM CDT Dalia Castro MD LAB BLOOD ORDERABLES Final Result Performing Organization Address [facility] de Phone Number [facility] HISTORICAL RESULTS * (ABNORMAL) Erythrocyte sedimentation rate (07/01/2015 7:54 PM CDT) [facility] ESR 124(H) 0 - 10 mm/hr 07/01/2015 8:17 PM CDT [facility] HISTORICAL RESULTS 07/01/2015 7:54 PM CDT 07/01/2015 7:57 PM CDT Dalia Castro MD LAB BLOOD ORDERABLES Final Result Performing Organization Address [facility] Phone Number [facility] HISTORICAL RESULTS * Mycoplasma pneumoniae antibody, IgM (07/01/2015 7:54 PM CDT) [facility] M. pneumoniae IgM NEGATIVE NEGATIVE 07/01/2015 8:22 PM CDT [facility] HISTORICAL RESULTS 07/01/2015 7:54 PM CDT 07/01/2015 7:57 PM CDT Dalia Castro MD LAB BLOOD ORDERABLES Final Result Performing Organization Address [facility] Phone Number [facility] HISTORICAL RESULTS * (ABNORMAL) IgE (07/01/2015 7:54 PM CDT) [facility] IgE 147(H) 0 - 100 IU/mL 07/01/2015 8:32 PM CDT [facility] HISTORICAL RESULTS 07/01/2015 7:54 PM CDT 07/01/2015 7:57 PM CDT Dalia Castro MD LAB BLOOD ORDERABLES Final Result Performing Organization Address [facility] Phone Number [facility] HISTORICAL RESULTS * (ABNORMAL) CRP (acute phase) (07/01/2015 7:54 PM CDT) [facility] C-Reactive Protein 248.7(H) 0.0 - 4.9 mg/L 07/01/2015 8:46 PM CDT [facility] HISTORICAL RESULTS 07/01/2015 7:54 PM CDT 07/01/2015 7:57 PM CDT us Dalia Castro MD LAB BLOOD ORDERABLES Final Result Performing Organization Address [facility]/State/ZIP Co de Phone Number [facility] HISTORICAL RESULTS * Lactate (07/01/2015 7:54 PM CDT) L-Lactate 1.4 mmol/L Comment:Lactate Reference Ra nge: 0.5 - 2.2 mmol/L 07/01/2015 7:54 PM CDT 07/01/2015 7:57 PM CDT Watson Garcia MD LAB BLOOD ORDERABLES F inal Result Performing Organization Address [facility] Co de Phone Number [facility] HISTORICAL RESULTS * (ABNORMAL) Blood gas with lactate (07/01/2015 5:55 PM CDT) Specimen Type ARTERIAL 07/01/2015 6:[address] [facility] HISTORICAL RESULTS Puncture Site LR 07/01/2015 6:[address] [facility] HISTORICAL RESULTS Patient Temperature 37 C 06/30 6:[address] [facility] HISTORICAL RESULTS pH 7.438 7.350 - 7.450 07/01/2015 6:[address] [facility] HISTORICAL RESULTS pCO2 43.7 34.0 - 45.0 mmHg 07/01/2015 6:[address] [facility] HISTORICAL RESULTS pO2 60.9(L) 79.0 - 87.0 mmHg 07/01/2015 6:[address] [facility] HISTORICAL RESULTS HCO3 29.1(H) 22.0 - 26.0 mmol/L 07/01/2015 6:[address] [facility] HISTORICAL RESULTS Total CO2 30.4(H) 26.0 - 28.0 mmol/L 07/01/2015 6:[address] [facility] HISTORICAL RESULTS Base Excess 4.8(H) -2.0 - 2.0 mmol/L Hemoglobin 10.5(L) 13.5 - 18.0 g/dL 07/01/2015 6:[address] [facility] HISTORICAL RESULTS O2 Saturation 90.9(L) >=95.0 % ABG Carboxyhemoglobin 1.9 <=3.0 % ABG Methemoglobin 1.1 0.4 - 1.5 % ABG O2 Content 13.4(L) 17.6 - 24.3 Vol % 07/01/2015 6:[address] [facility] HISTORICAL RESULTS Lactate (BLOOD GAS) 1.9(H) 0.4 - 0.8 mEq/L A-a O2 Difference 164.1(H) <=10.0 016 6:[address] [facility] HISTORICAL RESULTS a/A Ratio 0.3(L) >=0.8 O2 Delivery Device VENTI MASK 2015 6:[address] [facility] HISTORICAL RESULTS FiO2 40.0 % 07/01/2015 6:[address] 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 HISTORICAL RESULTS 07/01/2015 5:55 PM CDT 07/01/2015 6:10 PM T Narrative [facility] HISTORICAL RESULTS - 07/01/2015 6:19 PM CDT Conditions Oxygen ?? Source Arterial us Watson Garcia MD LAB BLOOD ORDERABLES F inal Result [facility] HISTORICAL RESULTS * (ABNORMAL) Lactate (07/01/2015 5:37 PM CDT) L-Lactate 2.4(HH) mmol/L 07/01/2015 6:19 PM CDT [facility] HISTORICAL RESULTS Comment: CRITICAL VALUE CALLED and REPEATED. ?? at:1817 07/01/15 by:Apurva Hamlin to:RN CHLOE GAGE ?? Lactate Reference Range: 0.5 - 2.2 mmol/L 07/01/2015 5:37 PM CDT 07/01/2015 5:44 PM CDT Narrative [facility] HISTORICAL RESULTS - 07/01/2015 6:19 PM CDT us Watson Garcia MD LAB BLOOD ORDERABLES F inal Result Performing Organization Address [facility]/ZIP Co de Phone Number [facility] HISTORICAL RESULTS * MRSA PCR, surveillance (07/01/2015 4:55 PM CDT) [facility] MRSA Surveill Initial MRSA NEGATIVE NEGATIVE 07/01/2015 6:25 PM CDT [facility] HISTORICAL RESULTS Comment:MRSA target DNA sequ ences are not detected. 07/01/2015 4:55 PM CDT 07/01/2015 5:12 PM CDT [facility] HISTORICAL RESULTS - 07/01/2015 6:25 PM CDT Collected By us Alli Paula DO LAB MICROBIOLOGY - GENERAL ORDERABLES Final Result [facility] HISTORICAL RESULTS * Microbiology Specimen Report (Converted) (07/01/2015 3:30 PM CDT) 07/01/2015 3:30 PM CDT 07/01/2015 3:35 PM CDT [facility] HISTORICAL RESULTS - 07/01/2015 3:30 PM CDT Microbiology Specimen Report (Converted) SPECIMEN [id number] ?? COLLECTED: 2015-07-01 15:30:00 [id number] ?? REQ#: [id number] REQUESTING DR: Alli Paula DO ?? SOURCE: BLOOD ?? SP DESC: COMMENT: LARM BC Draw ? LHAND BC Draw ?? --- PROCEDURE --- ?--- RESULT --- ?? CULTURE BLOOD ADULT (SET OF 2) ??(Final) ??- ??Performed at [facility] ?* NO GROWTH DAY 5 - [facility] ? [address] ? [place] [address] ? Tate Novak MD Procedure Note 06/20/2018 Microbiology Specimen Report (Converted) SPECIMEN [id number] COLLECTED: 2015-07-01 15:30:00 [id number] REQ#:[id number] REQUESTING DR: Alli Paula DO SOURCE: BLOOD SP DESC: COMMENT: LARM BC Draw LHAND BC Draw --- PROCEDURE --- --- RESULT --- CULTURE BLOOD ADULT (SET OF 2) (Final) - Performed at [facility] * NO GROWTH DAY 5 - [facility] [address] [place] [address] Tate Novak MD us Alli Paula DO LAB BLOOD ORDERABLES Final Result [facility] HISTORICAL RESULTS * (ABNORMAL) Lactate (07/01/2015 3:30 PM CDT) [facility] L-Lactate 3.6(HH) mmol/L 07/01/2015 4:02 PM CDT [facility] HISTORICAL RESULTS Comment: CRITICAL VALUE CALLED and REPEATED. ?? at:1601 07/01/15 by:Apurva Hamlin to:SHAREE GAGE ?? Lactate Reference Range: 0.5 - 2.2 mmol/L 07/01/2015 3:30 PM CDT 07/01/2015 3:35 PM CDT Narrative [facility] HISTORICAL RESULTS - 07/01/2015 4:02 PM CDT LARM BC Draw ? LHAND BC Draw ?? us Alli Paula DO LAB BLOOD ORDERABLES Final Result [facility] HISTORICAL RESULTS * (ABNORMAL) BLOOD GAS w/LYTES & LACTATE (07/01/2015 2:21 PM CDT) Specimen Type ARTERIAL Puncture Site LR Patient Temperature 37 C 06/30 2:32 PM T [facility] HISTORICAL RESULTS pH 7.474(H) 7.350 - 7.450 07/01/2015 2:[address] [facility] HISTORICAL RESULTS pCO2 40.5 34.0 - 45.0 mmHg 07/01/2015 2:[address] [facility] HISTORICAL RESULTS pO2 52.6(L) 79.0 - 87.0 mmHg 07/01/2015 2:[address] [facility] HISTORICAL RESULTS HCO3 29.4(H) 22.0 - 26.0 mmol/L 07/01/2015 2:[address] [facility] HISTORICAL RESULTS Total CO2 30.7(H) 26.0 - 28.0 mmol/L 07/01/2015 2:[address] [facility] HISTORICAL RESULTS Base Excess 5.7(H) -2.0 - 2.0 mmol/L 07/01/2015 2:[address] [facility] HISTORICAL RESULTS Hemoglobin 12.3(L) 13.5 - 18.0 g/dL 07/01/2015 2:[address] [facility] HISTORICAL RESULTS O2 Saturation 86.4(L) >=95.0 % 07/01/2015 2:[address] [facility] HISTORICAL RESULTS ABG Carboxyhemoglobin 2.7 <=3.0 % 05/2015 2:[address] [facility] HISTORICAL RESULTS ABG Methemoglobin 1.0 0.4 - 1.5 % 07/01/2015 2:[address] [facility] HISTORICAL RESULTS ABG O2 Content 15.0(L) 17.6 - 24.3 Vol % 07/01/2015 2:[address] [facility] HISTORICAL RESULTS Na+ (BLOOD GAS) 141.0 135.0 - 145.0 mmol/L K+ (BLOOD GAS) 2.8(L) 3.5 - 5.0 mmol/L CA++ (ionized) BLOOD GAS 1.15 1.07 - 1.31 mmol/L GLUCOSE (BLOOD GAS) 130.0(H) 70.0 - 110.0 mg/dL Lactate (BLOOD GAS) 2.4(HH) 0.4 - 0.8 mEq/L A-a O2 Difference 175.6(H) <=10.0 016 2:32 PM T [facility] HISTORICAL RESULTS a/A Ratio 0.2(L) >=0.8 O2 Delivery Device CANNULA 2015 2:32 PM T [facility] HISTORICAL RESULTS Liter Flow 5.0 FiO2 40.0 % Industrial Maintenance Mechanic ID [id number] 07/01/2015 2:21 PM CDT 07/01/2015 2:27 PM CDT [facility] HISTORICAL RESULTS - 07/01/2015 2:32 PM CDT Conditions Oxygen ?? Source Arterial Alli Paula DO LAB BLOOD ORDERABLES Final Result [facility] HISTORICAL RESULTS * Microbiology Specimen Report (Converted) (07/01/2015 2:10 PM CDT) 07/01/2015 2:10 PM CDT 07/01/2015 2:14 PM CDT [facility] HISTORICAL RESULTS - 07/01/2015 2:10 PM CDT Microbiology Specimen Report (Converted) SPECIMEN [id number] ?? COLLECTED: 2015-07-01 14:10:00 [id number] ?? REQ#: [id number] REQUESTING DR: Alli Paula DO ?? SOURCE: BLOOD ?? SP DESC: COMMENT: LARM BC Draw ?? --- PROCEDURE --- ?--- RESULT --- ?? CULTURE BLOOD ADULT (SET OF 2) ??(Final) ??- ??Performed at [facility] ?* NO GROWTH DAY 5 - [facility] ? [address] [place] [address] ? [place] [address] ? Tate Novak MD Procedure Note 06/20/2018 Microbiology Specimen Report (Converted) SPECIMEN [id number] COLLECTED: 2015-07-01 14:10:00 [id number] REQ#:[id number] REQUESTING DR: Alli Paula DO SOURCE: BLOOD SP DESC: COMMENT: LARM BC Draw --- PROCEDURE --- --- RESULT --- CULTURE BLOOD ADULT (SET OF 2) (Final) - Performed at [facility] * NO GROWTH DAY 5 - [place] [address] Tate Novak MD Alli Paula DO LAB BLOOD ORDERABLES Final Result [facility] HISTORICAL RESULTS * (ABNORMAL) PROCALCITONIN Pre-antibiotic (07/01/2015 2:10 PM CDT) [facility] Procalcitonin 4.75(H) 0.0 - 0.24 ng/mL 07/01/2015 6:52 PM CDT [facility] HISTORICAL RESULTS Comment: Reflex Procalcitonin will be drawn in [...] [facility] [place] [facility] * (ABNORMAL) TNI with LIPID PANEL (07/01/2015 2:10 PM CDT) Troponin I < 0.300 0.000 - 0.300 ng/mL Comment: Reference using [place] Chemiluminescence ? Negative: Repeat in 4-6 hours as indicated. Triglycerides 52 0 - 199 mg/dL Comment:12 hr pc highly luis mmended for Triglyceride Cholesterol 57 0 - 199 mg/dL 07/01/2015 2:[address] [facility] HISTORICAL RESULTS Comment: Borderline: ??[phone] High Risk: ?? >239 HDL Cholesterol 19(L) 40 - 60 mg/dL 07/01/2015 2:[address] [facility] HISTORICAL RESULTS Comment: Major Risk ?< 40 mg/dL Moderate Risk ?40-60 mg/dL Negative Risk ?? > 60 mg/dL LDL Cholesterol, Calc 28 0 - 130 mg/dL Comment:High Risk > 159 mg/d L Cholesterol/HDL Ratio 3.0 07/01/2015 2:[address] [facility] HISTORICAL RESULTS Comment: Cholesterol / HDL Ratio 3.5:1 or less is desirable. Cholesterol / HDL Ratio greater than 5:1 is considered higher risk for developing heart disease. 07/01/2015 2:10 PM CDT 07/01/2015 2:14 PM CDT [facility] HISTORICAL RESULTS - 07/01/2015 2:57 PM CDT LARM BC Draw ?? Alli Paula DO LAB BLOOD ORDERABLES Final Result Performing Organization Address [facility] de Phone Number [facility] HISTORICAL RESULTS * (ABNORMAL) Protime-INR (07/01/2015 2:10 PM CDT) PT 15.3(H) 11.8 - 14.5 SECONDS 07/01/2015 2:31 PM CDT [facility] HISTORICAL RESULTS Comment:New Reference Range in use at [facility] 05/04/2015 INR 1.21 0.01 - 5.99 07/01/2015 2:31 PM CDT [facility] HISTORICAL RESULTS Comment: Recommended Therapeutic range for Oral Anticoagulant Therapy No anti-coagulation therapy ? Normal Range: ?0.8-1.4 Anti-coagulation therapy ? Low intensity therapy ?2.0-3.0 ? High intensity therapy ?? 2.5-3.5 Critical Value ? Greater than or equal to 6.0 Patients should be monitored for serious bleeding. ?? 07/01/2015 2:10 PM CDT 07/01/2015 2:14 PM CDT [facility] HISTORICAL RESULTS - 07/01/2015 2:31 PM CDT LARM BC Draw ?? Alli Paula DO LAB BLOOD ORDERABLES Final Result Performing Organization Address [facility] de Phone Number [facility] HISTORICAL RESULTS * aPTT (07/01/2015 2:10 PM CDT) APTT 29 26 - 33 SECONDS 07/01/2015 2:32 PM CDT [facility] HISTORICAL RESULTS Comment:New Reference Range in use at [facility] 05/04/2015 07/01/2015 2:10 PM CDT 07/01/2015 2:14 PM CDT [facility] HISTORICAL RESULTS - 07/01/2015 2:32 PM CDT [facility] BC Draw ?? us Alli Paula DO LAB BLOOD ORDERABLES Final Result [facility] HISTORICAL RESULTS * (ABNORMAL) Comprehensive metabolic panel (07/01/2015 2:10 PM CDT) Sodium 141 135 - 145 mmol/L Potassium 2.8(L) 3.3 - 5.1 mmol/L Chloride 97 96 - 108 mmol/L Carbon Dioxide 29 22 - 32 mmol/L 07/01/2015 2:[address] [facility] HISTORICAL RESULTS Anion Gap 15 7 - 16 Glucose 131(H) 70 - 100 mg/dL BUN 18 8 - 23 mg/dL Creatinine 1.4(H) 0.5 - 1.3 mg/dL Comment: NOTE: Estimated GFR (Cockroft-Gault) will NOT be calculated unless patient Height and Weight were entered. Also, Kidney Disease Stage (GFR) and Estimated GFR (Cockroft-Gault) will NOT be calculated if Creatinine result is <0.2. Kidney Disease Stage 55 mL/MIN 07/01/2015 2:[address] [facility] HISTORICAL RESULTS Comment: NOTE; ??The GFR is [...] dialysis @ Est GFR (Cockcroft-G) 60 ml/MIN 07/01/2015 2:[address] [facility] HISTORICAL RESULTS Calcium 9.0 8.8 - 10.2 mg/dL 07/01/2015 2:[address] [facility] HISTORICAL RESULTS Total Protein 7.7 6.4 - 8.3 g/dL 07/01/2015 2:[address] [facility] HISTORICAL RESULTS Albumin 3.5 3.5 - 5.2 g/dL 07/01/2015 2:[address] [facility] HISTORICAL RESULTS Globulin 4.2(H) 2.3 - 3.5 gm/dL 07/01/2015 2:[address] [facility] HISTORICAL RESULTS Albumin/Globulin Ratio 0.8(L) 1.1 - 1.8 07/01/2015 2:[address] [facility] HISTORICAL RESULTS Total Bilirubin 0.4 0.0 - 1.2 mg/dL 07/01/2015 2:[address] [facility] HISTORICAL RESULTS AST 16 0 - 40 U/L 07/01/2015 2:[address] [facility] HISTORICAL RESULTS ALT 12 0 - 41 U/L 07/01/2015 2:[address] [facility] HISTORICAL RESULTS Alkaline Phosphatase 72 40 - 129 U/L 07/01/2015 2:[address] [facility] HISTORICAL RESULTS 07/01/2015 2:10 PM CDT 07/01/2015 2:14 PM T Narrative [facility] HISTORICAL RESULTS - 07/01/2015 2:57 PM CDT LARM BC Draw ?? us Alli Paula DO LAB BLOOD ORDERABLES Final Result [facility] HISTORICAL RESULTS * (ABNORMAL) CBC with auto differential (07/01/2015 2:10 PM CDT) WBC 16.7(H) 4.6 - 10.2 x10 3/ul 07/01/2015 2:42 PM CDT [facility] HISTORICAL RESULTS RBC 3.68(L) 4.11 - 5.71 x10 6/ul 07/01/2015 2:42 PM CDT [facility] HISTORICAL RESULTS Hemoglobin 12.4(L) 13.0 - 17.0 g/dl 07/01/2015 2:42 PM CDT [facility] HISTORICAL RESULTS Hct 36.2(L) 38.2 - 48.5 % 07/01/2015 2:42 PM CDT [facility] HISTORICAL RESULTS MCV 98.4(H) 80.0 - 97.0 fl 07/01/2015 2:42 PM CDT [facility] HISTORICAL RESULTS MCH 33.7(H) 27.0 - 31.2 pg 07/01/2015 2:42 PM CDT [facility] HISTORICAL RESULTS MCHC 34.3 31.8 - 35.4 g/dl 07/01/2015 2:42 PM CDT [facility] RDW 12.3 11.6 - 14.8 % 07/01/2015 2:42 PM CDT [facility] HISTORICAL RESULTS Plt Count 362 124 - 400 x10 3/ul 07/01/2015 2:42 PM CDT [facility] HISTORICAL RESULTS MPV 9.5 7.4 - 10.4 fl 07/01/2015 2:42 PM CDT [facility] HISTORICAL RESULTS Differential Method AUTOMATED DIFF --------- -- 07/01/2015 2:42 PM CDT [facility] HISTORICAL RESULTS Neut % 86.5(H) 37.0 - 85.0 % 07/01/2015 2:42 PM CDT [facility] HISTORICAL RESULTS Immature Gran % 0.8 0.0 - 3.0 % 07/01/2015 2:42 PM CDT [facility] HISTORICAL RESULTS Lymph % 4.8(L) 5.0 - 45.0 % 07/01/2015 2:42 PM CDT [facility] HISTORICAL RESULTS [place] % 7.4 3.0 - 15.0 % Eos [...] 2:14 PM CDT Narrative [facility] HISTORICAL RESULTS - 07/01/2015 2:42 PM CDT [facility] BC Draw ?? Alli Paula DO LAB BLOOD ORDERABLES Final Result [facility] HISTORICAL RESULTS * XR Chest 1 View [...]
--- OUTSIDE RECORDS SUMMARY | 2024-04-03 23:59 | XMS_ITS | Encounter Summary ---
Author Organization [facility] Healthcare Address [address] [place] [address] Care Team Providers Care Gui Developer Name Role Phone Unavailable Primary Care Provider Unavailabl e Encounter Details Date Type Department Care Team (Latest Contact Info) Description 01/03/2014 9:49 AM CDT - 01/03/2014 12:40 PM CDT Hospital Encounter 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 COLLECTED: 2014-01-03 11:26:00 [id number] ?? REQ#: [id number] REQUESTING DR: Dharmesh Crandall ?? SOURCE: BLOOD ?? SP DESC: COMMENT: LAC BC Draw ? LARM BC Draw ?? --- PROCEDURE --- ?--- RESULT --- ?? CULTURE BLOOD ADULT (SET OF 2) ??(Final) ??- ??Performed at [facility] ?* NO GROWTH DAY 5 - [facility] ? [address] ? [place] [address] ? Tate Novak MD Procedure Note 06/20/2018 Microbiology Specimen Report (Converted) SPECIMEN [id number] COLLECTED: 2014-01-03 11:26:00 [id number] REQ#:[id number] REQUESTING DR: Dharmesh Crandall SOURCE: BLOOD SP DESC: COMMENT: LAC BC Draw LARM BC Draw --- PROCEDURE --- --- RESULT --- CULTURE BLOOD ADULT (SET OF 2) (Final) - Performed at [facility] * NO GROWTH DAY 5 - [facility] [address] [place] [address] Tate Novak MD us Historical Provider LAB BLOOD ORDERABLES Myrna l Result [facility] HISTORICAL RESULTS * Microbiology Specimen Report (Converted) (01/03/2014 10:49 AM CDT) 01/03/2014 10:4 9 AM CDT 01/03/2014 10:52 AM CDT Narrative [facility] HISTORICAL RESULTS - 01/03/2014 10:49 AM CDT Microbiology Specimen Report (Converted) SPECIMEN [id number] ?? COLLECTED: 2014-01-03 10:49:00 [id number] ?? REQ#: [id number] REQUESTING DR: Dharmesh Crandall ?? SOURCE: BLOOD ?? SP DESC: COMMENT: LAC BC Draw ?? --- PROCEDURE --- ?--- RESULT --- ?? CULTURE BLOOD ADULT (SET OF 2) ??(Final) ??- ??Performed at [facility] ?* NO GROWTH DAY 5 - [facility] ? [address] [facility] ? [place] [address] ? Tate Novak MD Procedure Note 06/20/2018 Microbiology Specimen Report (Converted) SPECIMEN [id number] COLLECTED: 2014-01-03 10:49:00 [id number] REQ#:[id number] REQUESTING DR: Dharmesh Crandall SOURCE: BLOOD SP DESC: COMMENT: LAC BC Draw --- PROCEDURE --- --- RESULT --- CULTURE BLOOD ADULT (SET OF 2) (Final) - Performed at [facility] * NO GROWTH DAY 5 - [facility] [address] [place] [address] Tate Novak MD Historical Provider LAB BLOOD ORDERABLES Myrna funes Result [facility] HISTORICAL RESULTS * (ABNORMAL) TNI with LIPID PANEL (01/03/2014 10:49 AM CDT) [facility] Troponin I < 0.300 0.000 - 0.300 [...] AM CDT 01/03/2014 10:52 AM CDT Narrative [facility] HISTORICAL RESULTS - 01/03/2014 11:23 AM CDT Comment Glucose, blood, POC ?? LAC BC Draw ?? us Historical Provider LAB BLOOD ORDERABLES Myrna l Result Performing Organization Address City/[facility]/ZIP Co de Phone Number [facility] HISTORICAL RESULTS * Ethanol (01/03/2014 10:49 AM CDT) Pathologist [facility] Ethyl Alcohol < 10 mg/dL Comment:% = mg/dL x .001 01/03/2014 10:4 9 AM CDT 01/03/2014 10:52 AM CDT Narrative [facility] HISTORICAL RESULTS - 01/03/2014 11:23 AM CDT Comment Glucose, blood, POC ?? LAC BC Draw ?? Historical Provider LAB BLOOD ORDERABLES Myrna l Result Performing Organization Address [facility] Co de Phone Number [facility] HISTORICAL RESULTS * (ABNORMAL) Comprehensive metabolic panel (01/03/2014 10:49 AM CDT) [facility] Sodium 143 135 - 145 mmol/L Potassium [...] AM T 01/03/2014 10:52 AM CDT N[facility]ative [facility] HISTORICAL RESULTS - 01/03/2014 11:23 AM CDT Comment Glucose, blood, POC ?? LAC BC Draw ?? us Historical Provider LAB BLOOD ORDERABLES Myrna shantel Result [facility] HISTORICAL RESULTS * (ABNORMAL) CBC with auto differential (01/03/2014 10:49 AM CDT) WBC 9.3 4.6 - 10.2 x10 3/ul 01/03/2014 10:57 AM CDT [facility] HISTORICAL RESULTS RBC 3.75(L) 4.11 - 5.71 x10 6/ul 01/03/2014 10:57 AM CDT [facility] HISTORICAL RESULTS Hemoglobin 12.8(L) 13.0 - 17.0 g/dl 01/03/2014 10:57 AM T [facility] HISTORICAL RESULTS Hct 37.3(L) 38.2 - 48.5 % 01/03/2014 10:57 AM T [facility] HISTORICAL RESULTS MCV 99.5(H) 80.0 - 97.0 fl 01/03/2014 10:57 AM CDT [facility] HISTORICAL RESULTS MCH 34.1(H) 27.0 - 31.2 pg 01/03/2014 10:57 AM T [facility] HISTORICAL RESULTS MCHC 34.3 31.8 - 35.4 g/dl 01/03/2014 10:57 AM T [facility] HISTORICAL RESULTS RDW 12.1 11.6 - 14.8 % 01/03/2014 10:57 AM T [facility] HISTORICAL RESULTS Plt Count 308 124 - 400 x10 3/ul 01/03/2014 10:57 AM T [facility] HISTORICAL RESULTS MPV 8.9 7.4 - 10.4 fl 01/03/2014 10:57 AM T [facility] HISTORICAL RESULTS Differential Method AUTOMATED DIFF --------- -- 01/03/2014 10:57 AM T [facility] HISTORICAL RESULTS Neut % 80.2 37.0 - 85.0 % 01/03/2014 10:57 AM T [facility] HISTORICAL RESULTS Immature Gran % 0.3 0.0 - 3.0 % 01/03/2014 10:57 AM T [facility] HISTORICAL RESULTS Lymph % 10.4 5.0 - 45.0 % 01/03/2014 10:57 AM CDT [facility] HISTORICAL RESULTS [place] % 5.4 3.0 - 15.0 % 01/03/2014 10:57 AM T [facility] HISTORICAL RESULTS Eos % 3.2 0.0 - 7.0 % 01/03/2014 10:57 AM CDT [facility] HISTORICAL RESULTS Baso % 0.5 0.0 - 2.0 % 01/03/2014 10:57 AM T [facility] HISTORICAL RESULTS ABSOLUTE COUNTS ABSOLUTE COUNTS --------- -- 01/03/2014 10:57 AM T [facility] HISTORICAL RESULTS Absolute Neuts (auto) 7.4 1.7 - 8.7 x10 3/ul 01/03/2014 10:57 AM T [facility] HISTORICAL RESULTS Immature Gran # 0.0 0.0 - 0.3 x10 3/ul 01/03/2014 10:57 AM T [facility] HISTORICAL RESULTS Absolute Lymphs (auto) 1.0 0.2 - 4.6 x10 3/ul 01/03/2014 10:57 AM CDT [facility] HISTORICAL RESULTS Absolute Monos (auto) 0.5 0.1 - 1.5 x10 3/ul 01/03/2014 10:57 AM T [facility] HISTORICAL RESULTS Absolute Eos (auto) 0.3 0.0 - 0.7 x10 3/ul 01/03/2014 10:57 AM T [facility] HISTORICAL RESULTS Absolute Basos (auto) 0.1 0.0 - 0.2 x10 3/ul 01/03/2014 10:57 AM T [facility] HISTORICAL RESULTS 01/03/2014 10:4 9 AM CDT 01/03/2014 10:52 AM CDT Narrative [facility] HISTORICAL RESULTS - 01/03/2014 10:57 AM CDT LAC BC Draw ?? us Historical Provider LAB BLOOD ORDERABLES Myrna l Result [facility] HISTORICAL RESULTS * CT Head WO Contrast [...] Nickerson M.D. CN:madhav 11:28 AM 11:28 AM [facility] [EOD] Narrative 01/03/2014 11:32 AM [...] Nickerson M.D. CN:madhav 11:18 AM 11:18 AM [facility] [EOD] Narrative 01/03/2014 11:21 AM [...] Nickerson M.D. CN:madhav 11:18 AM 11:18 AM [facility] [EOD] Historical Provider MD ESTRADA [...]
--- OUTSIDE RECORDS SUMMARY | 2024-04-03 23:59 | XMS_ITS | Encounter Summary ---
Author Organization [facility] Facility Care Team Providers Care Clinical Data Research Name Role Phone Unavailable Primary Care Provider Unavailabl e Encounter Details Date Type Department Care Team (Latest Contact Info) Description 01/04/2014 1:40 AM CDT - 01/04/2014 5:23 PM CDT Hospital Encounter [facility]CON[facility] Urinary tract infection; Essential hypertension; Other late effects of cerebrovascular disease; Swelling of limb; Other and unspecified hyperlipidemia; Other depressive disorder; Tobacco use disorder; Encounter for long-term (current) use of aspirin Social History Tobacco Use Types Packs/Day Years Used Date Smoking Tobacco: Never Assessed Sex and Gender Information Value Date Recorded Sex Assigned at Not on file 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 Dictating: Diane Peterson [...] morning whom then sent Mr. Angelo for [facility] for weakness and lethargy. At [facility] Emergency Department the patient underwent magnetic resonance [...] and chronic obstructive pulmonary disease. SOCIAL HISTORY: [id number]-njlz history of smoking. No history of alcohol [...] M.D. 01/27/2014 02:25 P Geo Barragan M.D. [facility] #[id number] Editing MT: TD: 01/04/2014 11:40:00 cc: Tanja Padilla M.D. documented in this encounter Consult Notes * Provider, MD Mirna - 01/03/2014 12:00 AM CDT Patient: Curly Angelo Reg No: [id number] [facility] #: [id number] Admit Dt.: 01/03/2014 : 1955 Room No: ER Attending: Consulting: Golden Chowdary M.D. Dictating: Serafin Gonzalez M.D. Service Dt: 01/03/2014 CONSULTATION REPORT PHYSICIAN REQUESTING CONSULTATION: Geo Haywood MD REASON FOR CONSULTATION: Right lower extremity weakness and lethargy. BRIEF HISTORY: This is a 58-year-old right-handed gentleman with a history of hypertension, hyperlipidemia, and depression, who was recently at [facility] in September of 2013 after a left MCA stroke, status post left-sided decompressive craniectomy by Dr. Golden Chowdary on October 22, 2013, who now presents to [facility] Emergency Room with a two day history [...] surgeries in [address] Bui at [place]. 4. Left knee surgery. 5. History of [...] obstructive pulmonary disease. SOCIAL HISTORY: Lives in [place] at home with his . 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 He has a 41-xoqf-adoj history of smoking. No alcohol and no [...] 01/05/2014 07:31 P Golden Chowdary M.D. [facility] #[id number] Editing MT: TD: 01/03/2014 15:43:00 cc: Tanja [...] HISTORICAL RESULTS - 01/05/2014 3:20 PM CDT ?[facility] ?Department of Laboratories ? [address] [facility] [place] ? [place], [place] [address] Patient Name: ??CURLY ANGELO [facility] Rec Number: [id number] Fin Number: ?[id number] Date: ?1955 Sex/Age: ? Male 58 years Admit Date: ?01/04/2014 Discharge Date: 01/04/2014 Doctor: ?MEDICINE , 1302 Facility: ?[facility] Location: ?OTHER Chart Printed: 01/05/2014 15:20 ?? [...] for the diagnosis of myocardial infarction (Third [place] Definition of Myocardial Infarction. ??J Am Mary [...] ??Its performance characteristics were determined by the [facility] in a manner consistent with CLIA [...] ?URINALYSIS ?Macroscopic ?Test: Color ? Clarity ??Specific [place] ??pH ? Reference: [Yellow] ??[Clear] ??[1.003-1.030] ? [...] ?Test: Neut Pct Auto ??Lymph Pct Auto ??[place] Pct Auto ? Reference: [38.7-74.5] ?[20.0-54.3] ? [4.3-13.5] ? Units: % ?% ? % 01/03/2014 ?? 14:00:00 ?? 74.4 ? 15.5 ??L ? 6.3 ?Test: Eos Pct Auto ??Baso Pct Auto ??Neut Abs Auto ? Reference: [0.0-6.0] ? [0.0-3.0] ?[1.8-6.6] ? Units: % ? % ?K/cumm 01/03/2014 ?? 14:00:00 ?? 3.3 ? 0.5 ?5.8 ? AUTOMATED WHITE CELL DIFFERENTIAL ?Test: Lymph Abs Auto ??Wasco Abs Auto ??Eos Abs Auto ? Reference: [...] updated copy of the Tool Book at [email or web address]/[email or web address].nsf Current Interpretive Data was last revised 2011. [...] media. us Historical Provider LAB BLOOD ORDERABLES Myrna [...] agrees with it. ACC# ??Date Time ??Exam [id number] Jan 03, 2014 21:09:00 [id number] MRI Brain wo&with contrast EXAMINATION: ?? Magnetic [...] by: NICOLAS DAMON M.D. on Dec?2013 12:58P [id number] Procedure Note Provider, MD Mirna - 07/28/2016 NICOLAS DAMON M.D. CLARICE MCGREGOR M.D. FINAL REPORT The radiology attending physician has personally reviewed this study, and has reviewed and/or edited this written report and agrees with it. ACC# Date Time Exam [id number] Jan 03, 2014 21:09:00 [id number] MRI Brain wo&with contrast EXAMINATION: Magnetic resonance [...] DAMON M.D. on Jan 04 2014 12:58P [id number] Historical Provider MD ESTRADA MRI PROCEDURES Final Result * Urine (aerobic) culture (01/03/2014 5:55 PM CDT) Organism ECOL^[id number] 3 HISTORICAL RESULTS Urine (Unknown) 01/03/2014 5 [...] L ORDERABLES Final Result Performing Organization Address [facility] Phone Number HISTORICAL RESULTS * (ABNORMAL) [...] RESULTS Urine 01/03/2014 5:07 PM CDT Result [facility] Raven Calvert MD LAB BLOOD ORDERABLES Final Resul t Performing Organization Address [facility] Phone Number HISTORICAL RESULTS * (ABNORMAL) Urine [...] ORDERABLES Final Resul t Performing Organization Address [facility] de Phone Number HISTORICAL RESULTS * (ABNORMAL) Blood erythrocyte sedimentation rate (ESR) (01/03/2014 5:00 PM CDT) Erythrocyte sedimentation rate 44.0(H) 0.0 - 15.0 mm/hr HISTORICAL RESULTS Blood specimen (specimen) 01/03/2014 5:00 PM CDT Abdi Boggs MD LAB BLOOD ORDERABLES Final R esult Performing Organization Address [facility] de Phone Number HISTORICAL RESULTS * (ABNORMAL) Serum C-reactive protein (01/03/2014 5:00 PM CDT) C-RP 15.3(H) 0.0 - 9.9 mg/L HISTORICAL RESULTS Serum 01/03/2014 5:00 PM CDT Abdi Boggs MD LAB BLOOD ORDERABLES Final R esult Performing Organization Address [facility] de Phone Number HISTORICAL RESULTS * (ABNORMAL) [...] Narrative 01/03/2014 2:53 PM CDT OUTSIDE IMAGES TRIAL ATTORNEY, FINAL REPORT ACC# ??Date Time ??Exam [id number] Jan 03, 2014 14:38:00 [id number] ED Reference Plain Film EXAMINATION: ?Images For Reference Purposes Only IMPRESSION: ?These images have been uploaded for Reference purposes only. ??There will be no separate report generated by a [facility] Radiologist. Requested By: TON HAMILTON M.D. Dictated By: ?? OUTSIDE IMAGES TRIAL ATTORNEY, ?? on Dec ??2013 ??2:53P This document has been electronically signed by: OUTSIDE IMAGES TRIAL ATTORNEY, ??on Dec?2013 ??2:53P [id number] Procedure Note Provider, MD Mirna - 07/28/2016 OUTSIDE IMAGES TRIAL ATTORNEY, FINAL REPORT ACC# Date Time Exam [id number] Jan 03, 2014 14:38:00 [id number] ED Reference Plain Film EXAMINATION: Images For Reference Purposes Only IMPRESSION: These images have been uploaded for Reference purposes only. There will be no separate report generated by a [facility] Radiologist. Requested By: TON HAMILTON M.D. Dictated By: OUTSIDE IMAGES TRIAL ATTORNEY, on Jan 03 2014 2:53P This document has been electronically signed by: OUTSIDE IMAGES TRIAL ATTORNEY, on Jan 03 2014 2:53P [id number] us Historical Provider IMG XR PROCEDURES Final [...] agrees with it. ACC# ??Date Time ??Exam [id number] Jan 03, 2014 14:29:00 [id number] ED Consult Neuro CT/MR EXAMINATION: ?? RADIOLOGY CONSULTATION ON OUTSIDE IMAGING STUDY STUDY INITIALLY PERFORMED: ??On 01/03/2014 by [facility]. ?? TYPE OF STUDY: Multiple CT images [...] images may or may not represent the [place] source data set and thus may contain changes that may lower the accuracy of this second-opinion interpretation. Requested By: RAVEN CALVERT M.D. Dictated By: ?? DEB ALLEN M.D. ??on Dec ??2013 ??3:57P This document has been electronically signed by: FLAVIO HELMS MD, PHD on Dec ??2013 ??5:11P [id number] Procedure Note Provider, MD Mirna - 07/28/2016 FLAVIO HELMS MD, PHD DEB ALLEN M.D. FINAL REPORT The radiology attending physician has personally reviewed this study, and has reviewed and/or edited this written report and agrees with it. ACC# Date Time Exam [id number] Jan 03, 2014 14:29:00 [id number] ED Consult Neuro CT/MR EXAMINATION: RADIOLOGY CONSULTATION ON OUTSIDE IMAGING STUDY STUDY INITIALLY PERFORMED: On 01/03/2014 by [facility]. TYPE OF STUDY: Multiple CT images of [...] images may or may not represent the [place] source data set and thus may contain changes that may lower the accuracy of this second-opinion interpretation. Requested By: RAVEN CALVERT M.D. Dictated By: DEB ALLEN M.D. on Jan 03 2014 3:57P This document has been electronically signed by: FLAVIO HELMS MD, PHD on Jan 03 2014 5:11P [id number] Historical Provider IMG XR PROCEDURES Final R esult * Plasma partial thromboplastin time (PTT) (01/03/2014 2:00 PM CDT) Pathologist [facility] APTT 34.4 25.0 - 37.0 seconds HISTORICAL [...] ORDERABLES Final Resul t Performing Organization Address City/[facility] Co de Phone Number HISTORICAL RESULTS * Serum troponin I (01/03/2014 2:00 PM CDT) Troponin I <0.03 0.00 - 0.03 ng/ml HISTORICAL RESULTS Comment: Interpretive Data Serial determinations are recommended for the diagnosis of myocardial infarction (Third National [place] Definition of Myocardial Infarction. ??J Am Mary Cardiol 2012;60:1581-98). Current interpretive data was last revised on 13. Serum 01/03/2014 2:00 PM CDT us Raven Calvert MD LAB BLOOD ORDERABLES Final Resul t Performing Organization Address City/[facility] Co de Phone Number HISTORICAL RESULTS [...] updated copy of the Tool Book at [email or web address] Current Interpretive Data was last revised 2011. Plasma 01/03/2014 2:00 PM CDT us Raven [...] agrees with it. ACC# ??Date Time ??Exam [id number] Jan 03, 2014 13:38:00 [id number] Chest 1 view Frontal EXAMINATION: ?? Chest [...] RUSTY SMITH M.D. on Dec ??2013 12:55P [id number] Procedure Note Provider, Mirna, - 07/28/2016 Tanja JOYCE M.D. FINAL REPORT The radiology attending physician has personally reviewed this study, and has reviewed and/or edited this written report and agrees with it. ACC# Date Time Exam [id number] Jan 03, 2014 13:38:00 [id number] Chest 1 view Frontal EXAMINATION: Chest radiograph [...] SMITH M.D. on Jan 04 2014 12:55P [id number] Historical Provider IMG XR PROCEDURES Final R [...] ??Its performance characteristics were determined by the [facility] in a manner consistent with CLIA requirements. ??This test has not been cleared or approved by the U.S. Food and Drug Administration. us Raven Calvert MD LAB BLOOD ORDERABLES Final Resul t HISTORICAL RESULTS * All Microbiology Report Section (01/03/2014 12:00 AM CDT) 01/03/2014 Narrative HISTORICAL RESULTS - 01/05/2014 4:45 PM CDT ? [facility] ?[facility] [address] ?[place], [place] [address] ? Patient Name: ??CURLY ANGELO ? Med Rec Number: [id number] ? Fin Number: ?[id number] ? Date: ?1955 ? Sex/Age: ? Male 58 years ? Admit Date: ?01/04/2014 ? Discharge Date: 01/04/2014 ? Doctor: ?MEDICINE , 1302 ? Facility: ?[facility] ? Location: ?OTHER ?* Abnormal ??A Alert [...] L ORDERABLES Final Result Performing Organization Address City/State/[facility] Co de Phone Number HISTORICAL RESULTS [...]
--- OUTSIDE RECORDS SUMMARY | 2024-04-03 23:59 | XMS_ITS | Encounter Summary ---
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
--- OUTSIDE RECORDS SUMMARY | 2024-04-03 23:59 | XMS_ITS | Encounter Summary ---
Author Organization [facility] Healthcare Address [address] [place] [address] Care Team Providers Care Dependency Case Manager Name Role Phone Unavailable Primary Care Provider Unavailabl e Encounter Details Date Type Department Care Team (Late st Contact Info) Description 08/18/2015 11:59 AM CDT Hospital Encounter [facility] Shawn Pearson MD [address] [place], [place] [id number] Pneumonia Social History Tobacco Use Types Packs/Day Years Used Date Smoking Tobacco: Never Assessed Sex and Gender Information Value Date Recorded Sex Assigned at Not on file 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 JA:lydia 03:28 PM 03:31 PM [facility] [EOD] Shawn Berkowitz MD IMG XR PROCEDURES [...]
--- OUTSIDE RECORDS SUMMARY | 2024-04-03 23:59 | XMS_ITS | Encounter Summary ---
Author Organization [facility] Healthcare Address [address] [place] [address] Care Team Providers Care Fur Comber Name Role Phone Unavailable Primary Care Provider Unavailabl e Encounter Details Date Type Department Care Team (Latest Contact Info) Description 04/12/2015 12:25 PM GROUNDS CREW SUPERVISOR [facility] Shawn Pearson MD [address] [place] [address] [place] [address] [phone] Encounter for screening for malignant neoplasm of prostate; Essential (primary) hypertension; Hyperlipidemia Social History Tobacco Use Types Packs/Day Years Used Date Smoking Tobacco: Never Assessed Sex and Gender Information Value Date Recorded Sex Assigned at Not on file 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 Gender Identity Not on file Sexual Orientation Not on file documented as of this encounter Plan of Treatment Not on file documented as of this encounter Procedures Procedure Name Priority Date/Time Associated Diagnosis Comments PSA SCREEN Routine 04/12/2015 12:34 PM GROUNDS CREW SUPERVISOR LIPID PANEL Routine 04/12/2015 12:34 PM GROUNDS CREW SUPERVISOR COMPREHENSIVE METABOLIC PANEL Routine 04/12/2015 12:34 PM GROUNDS CREW SUPERVISOR documented in this encounter Results * PSA screen (04/12/2015 12:34 PM GROUNDS CREW SUPERVISOR) [facility] PSA Screen 3.1 0.0 - 5.4 ng/mL 04/12/2015 1:43 PM GROUNDS CREW SUPERVISOR [facility] HISTORICAL RESULTS Comment: Method: ECLIA Values obtained by different assay methods cannot be used interchangeably. ??Use sequential testing to confirm baseline if assay method changed during patient monitoring. 04/12/2015 12:3 4 PM GROUNDS CREW SUPERVISOR 04/12/2015 1:04 PM GROUNDS CREW SUPERVISOR Narrative [facility] HISTORICAL RESULTS - 04/12/2015 1:43 PM GROUNDS CREW SUPERVISOR 12 HRS PC Shawn Berkowitz MD LAB BLOOD ORDERABLES Final Result Performing Organization Address [place] de Phone Number [facility] HISTORICAL RESULTS * (ABNORMAL) Lipid panel (04/12/2015 12:34 PM GROUNDS CREW SUPERVISOR) Triglycerides 82 0 - 199 mg/dL Comment:12 [...] developing heart disease. 04/12/2015 12:3 4 PM GROUNDS CREW SUPERVISOR 04/12/2015 1:04 PM GROUNDS CREW SUPERVISOR Narrative [facility] HISTORICAL RESULTS - 04/12/2015 1:42 PM GROUNDS CREW SUPERVISOR 12 HRS PC Shawn Berkowitz MD LAB BLOOD ORDERABLES Final Result Performing Organization Address [place] Phone Number [facility] HISTORICAL RESULTS * (ABNORMAL) Comprehensive metabolic panel (04/12/2015 12:34 PM GROUNDS CREW SUPERVISOR) Sodium 138 135 - 145 mmol/L Potassium [...] 8.8 - 10.2 mg/dL 04/12/2015 1:42 PM [facility] adjust HISTORICAL RESULTS Total Protein 7.7 6.4 - 8.3 g/dL 04/12/2015 1:42 PM [facility] [employer] [facility] HISTORICAL RESULTS Albumin 4.0 3.5 - 5.2 g/dL Globulin 3.7(H) 2.3 - 3.5 gm/dL 04/12/2015 1:42 PM [facility] Albumin/Globulin Ratio 1.1 1.1 - 1.8 04/12/2015 1:42 PM [facility] [employer] [facility] HISTORICAL RESULTS Total Bilirubin 0.3 0.0 - 1.2 mg/dL 04/12/2015 1:42 PM [facility] [employer] [facility] HISTORICAL RESULTS AST 13 0 - 40 U/L 04/12/2015 1:42 PM [facility]ISTOR[facility] RES[facility] ALT 10 0 - 41 U/L Alkaline Phosphatase 90 40 - 129 U/L 04/12/2015 1:42 PM [facility] [employer] [facility] HISTORICAL RESULTS 04/12/2015 12:3 4 PM GROUNDS CREW SUPERVISOR 04/12/2015 1:04 PM GROUNDS CREW SUPERVISOR Narrative [facility] [employer] [facility] HISTORICAL RESULTS - 04/12/2015 1:42 PM GROUNDS CREW SUPERVISOR 12 HRS PC us Shawn Berkowitz MD LAB BLOOD ORDERABLES Final Result [facility] HISTORICAL RESULTS documented in this encounter Visit [...]
--- OUTSIDE RECORDS SUMMARY | 2024-04-03 23:59 | XMS_ITS | Encounter Summary ---
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 Surgeon: Golden Chowdary M.D. Dictating: Golden Chowdary M.D. Service Dt: 01/11/2014 OPERATIVE REPORT FIRST FINISHER [employer]: Juani Braun. ANESTHESIA: General endotracheal anesthesia. PREOPERATIVE [...] closure as well. Electronically Signed By Golden Chowdayr M.D. 01/21/2014 10:08 A Golden Chowdary M.D. [facility]/nicole #[id number] Editing MT: TD: 01/11/2014 15:34:00 cc: Golden [...] HISTORICAL RESULTS - 01/19/2014 11:19 AM CDT ?[facility] ?Department of Laboratories ? [address] [facility] [address] ? [place] [id number] Patient Name: ??CURLY CASH Rec Number: [id number] Fin Number: ?[id number] Date: ?1955 Sex/Age: ? Male 58 years Admit Date: ?01/11/2014 Discharge Date: 01/15/2014 Doctor: ?Golden Chowdary Facility: ?[facility] Location: ?OTHER Chart Printed: 01/19/2014 11:19 ?? [...] for the diagnosis of myocardial infarction (Third [place] Definition of Myocardial Infarction. ??J Am Mary Cardiol 2012;60:1581-98). Current interpretive data was last revised on 13. ?URINALYSIS ?Macroscopic ?Test: Color ? Clarity ??Specific [place] ??pH ? Reference: [Yellow] ??[Clear] ??[1.003-1.030] ? [...] ?Test: Neut Pct Auto ??Lymph Pct Auto ??[place] Pct Auto ? Reference: [38.7-74.5] ?[20.0-54.3] ? [...] ??H ?0.7 ?3.9 ?Test: Lymph Abs Auto ??[place] Abs Auto ??Eos Abs Auto ? Reference: [...] copy of the Tool Book at [email or web address] Current Interpretive Data was last [...] ORDERABLES Myrna l Result Performing Organization Address City/[facility]/ZIP Co de Phone Number HISTORICAL RESULTS [...] L ORDERABLES Final Result Performing Organization Address [facility] Co de Phone Number HISTORICAL RESULTS * Clostridium difficile toxin (01/14/2014 9:53 AM CDT) Stool (Unknown) 01/14/2014 9 :53 AM CDT 01/14/2014 10:28 AM CDT Narrative HISTORICAL RESULTS - 01/15/2014 1:58 AM CDT Positive for: Clostridium difficile toxin. Historical Provider LAB MICROBIOLOGY - GENERA L ORDERABLES Final Result Performing Organization Address [facility] Co de Phone [...] RESULTS - 01/19/2014 10:32 AM CDT ? [facility] ?[address] [facility] [address] ?[place], [place] [address] ? Patient Name: ??GI, CURLY ? Med Rec Number: [id number] ? Fin Number: ?[id number] ? Date: ?1955 ? Sex/Age: ? Male 58 years ? Admit Date: ?01/11/2014 ? Discharge Date: 01/15/2014 ? Doctor: ?Ricarda , Golden G ? Facility: ?[facility] ? Location: ?OTHER ?* Abnormal ??A [...] RESULTS - 01/19/2014 10:32 AM CDT ? [facility] ?[address] [facility] [address] ?[place] [address] ? Patient Name: ??CURLY CASH ? Med Rec Number: [id number] ? Fin Number: ?[id number] ? Date: ?1955 ? Sex/Age: ? Male 58 years ? Admit Date: ?01/11/2014 ? Discharge Date: 01/15/2014 ? Doctor: ?Golden Chowdary G ? Facility: ?[facility] ? Location: ?OTHER ?* Abnormal ??A [...] BLOOD ORDERABLES Final Result Performing Organization Address City/[facility] Co de Phone [...] 01/13/2014 7:40 AM CDT us Kylie Ann OVER SHORT AND DAMAGE CLERK LAB BLOOD ORDERABLES Final Res ult Performing Organization Address [facility] de Phone Number HISTORICAL RESULTS * [...] BLOOD ORDERABLES Final Result Performing Organization Address [facility] de Phone Number HISTORICAL RESULTS * [...] RESULTS Urine 01/12/2014 6:04 AM CDT Result [facility] Jelly Constantino LAB BLOOD ORDERABLES Final Resu lt Performing Organization Address [facility] de Phone Number HISTORICAL RESULTS * [...] ORDERABLES Final Resu lt Performing Organization Address [facility] de Phone Number HISTORICAL RESULTS * Urine (aerobic) culture (01/12/2014 6:04 AM CDT) Urine (Unknown) 01/12/2014 6 :04 AM CDT 01/12/2014 9:30 AM CDT Narrative HISTORICAL RESULTS - 01/13/2014 10:15 AM CDT No growth us Historical Provider LAB MICROBIOLOGY - GENERA L ORDERABLES Final Result Performing Organization Address City/[facility]/ZIP Co de Phone Number HISTORICAL RESULTS [...] ORDERABLES Myrna l Result Performing Organization Address [facility] de Phone Number HISTORICAL RESULTS * [...] RESULTS - 01/19/2014 10:32 AM CDT ? [facility] ?[address] [facility] [address] ?[place], [place] [address] ? Patient Name: ??CURLY CASH ? Med Rec Number: [id number] ? Fin Number: ?[id number] ? Date: ?1955 ? Sex/Age: ? Male 58 years ? Admit Date: ?01/11/2014 ? Discharge Date: 01/15/2014 ? Doctor: ?Ricarda Golden G ? Facility: ?[facility] ? Location: ?OTHER ?* Abnormal ??A [...] agrees with it. ACC# ??Date Time ??Exam [id number] Jan 11, 2014 18:21:00 [id number] Chest 1 view Frontal EXAMINATION: ?? Chest [...] ASHER M.D. on Jan 12 2014 12:01P [id number] Procedure Note Provider, Mirna, - 07/28/2016 SANTI ASHER M.D. SAEID BOBBY M.D. FINAL REPORT The radiology attending physician has personally reviewed this study, and has reviewed and/or edited this written report and agrees with it. ACC# Date Time Exam [id number] Jan 11, 2014 18:21:00 [id number] Chest 1 view Frontal EXAMINATION: Chest one [...] ASHER M.D. on Jan 12 2014 12:01P [id number] Historical Provider IMG XR PROCEDURES Final R esult * Blood glucose, POC (01/11/2014 5:55 PM CDT) Glucose, POC, bld 144 70 - 199 mg/dl HISTORICAL RESULTS Blood specimen (specimen) 01/11/2014 5:55 PM CDT Golden Chowdary MD LAB BLOOD ORDERABLES Final Result Performing Organization Address [facility] de Phone Number HISTORICAL RESULTS * [...] BLOOD ORDERABLES Final Result Performing Organization Address [facility] de Phone Number HISTORICAL RESULTS * Serum troponin I (01/11/2014 5:05 PM CDT) Troponin I <0.03 0.00 - 0.03 ng/ml HISTORICAL RESULTS Comment: Interpretive Data Serial determinations are recommended for the diagnosis of myocardial infarction (Third [place] Definition of Myocardial Infarction. ??J Am Mary Cardiol 2012;60:1581-98). Current interpretive data was last revised on 13. Serum 01/11/2014 5:05 PM CDT Golden Chowdary MD LAB BLOOD ORDERABLES Final Result Performing Organization Address [facility] de Phone Number HISTORICAL RESULTS * Plasma phosphorus (01/11/2014 5:05 PM CDT) Phosphorus, pl 3.1 2.3 - 4.3 mg/dl HISTORICAL RESULTS Plasma 01/11/2014 5:05 PM CDT Golden Chowdary MD LAB BLOOD ORDERABLES Final Result Performing Organization Address [facility] de Phone Number HISTORICAL RESULTS * Serum magnesium (01/11/2014 5:05 PM CDT) Magnesium 1.4 1.4 - 2.5 mg/dl HISTORICAL RESULTS Serum 01/11/2014 5:05 PM CDT Golden Chowdary MD LAB BLOOD ORDERABLES Final Result Performing Organization Address [facility] de Phone Number HISTORICAL RESULTS * [...] BLOOD ORDERABLES Final Result Performing Organization Address [facility] de Phone Number HISTORICAL RESULTS * [...] updated copy of the Tool Book at [email or web address] Current Interpretive Data was last [...] agrees with it. ACC# ??Date Time ??Exam [id number] Jan 11, 2014 16:03:[id number] Head or Brain w/o cont EXAMINATION: [...] GANN M.D. on Jan 11 2014 ??8:04P [id number] Procedure Note Provider, MD Mirna - 07/28/2016 MORGAN GANN M.D. RAFIA PATRICIO M.D. FINAL REPORT The radiology attending physician has personally reviewed this study, and has reviewed and/or edited this written report and agrees with it. [facility]# Date Time Exam [id number] Jan 11, 2014 16:03:[id number] Head or Brain w/o cont EXAMINATION: [...] GANN M.D. on Jan 11 2014 8:04P [id number] us Historical Provider MD ESTRADA CT PROCEDURES [...] Urine 01/11/2014 11:5 4 AM CDT Result [facility] Golden Chowdary MD LAB BLOOD ORDERABLES Final Result Performing Organization Address [facility] Co de Phone Number HISTORICAL RESULTS * Urine microscopy (01/11/2014 11:54 AM CDT) RBC, ur 1 0 - 3 /hpf HISTORICA L RESULTS WBC, ur 0 0 - 5 /hpf HISTORICA L RESULTS Bacteria, ur Trace Trace HISTORI SHALA RESULTS Epithelial cells, renal, ur 0 0 - 0 /hpf HISTORICAL RESULTS Urine 01/11/2014 11:5 4 AM CDT Result [facility] Golden Chowdary MD LAB BLOOD ORDERABLES Final Result Performing Organization Address [facility] de Phone Number HISTORICAL RESULTS * ELECTROCARDIOGRAPHY (ECG) (01/11/2014) Narrative 01/11/2014 Ordered by an unspecified provider. Result [facility] Miran Provider ECG ORDERABLES Final Res ult * Blood ABO, Rh, indirect ab screen (01/10/2014 10:51 AM CDT) ABO, Rho(D) O Positive HISTORI SHALA RESULTS Madhavi, indirect Negative HISTORICAL RESULTS Blood specimen (specimen) 01/10/2014 10:51 AM CDT Result [facility] Golden Chowdary MD LAB BLOOD ORDERABLES Final Result Performing Organization Address [facility] Co de Phone Number HISTORICAL RESULTS * Serum C-reactive protein (01/10/2014 10:51 AM CDT) C-RP 9.0 0.0 - 9.9 mg/L HISTORICAL RESULTS Serum 01/10/2014 10:5 1 AM CDT Golden Chowdary MD LAB BLOOD ORDERABLES Final Result Performing Organization Address City/[facility] Co de Phone Number HISTORICAL RESULTS * (ABNORMAL) Blood erythrocyte sedimentation rate (ESR) (01/10/2014 10:51 AM CDT) Erythrocyte sedimentation rate 29.0(H) 0.0 - 15.0 mm/hr HISTORICAL RESULTS Blood specimen (specimen) 01/10/2014 10:51 AM CDT Golden Chowdary MD LAB BLOOD ORDERABLES Final Result Performing Organization Address [facility] de Phone Number HISTORICAL RESULTS * [...] BLOOD ORDERABLES Final Result Performing Organization Address [facility] de Phone Number HISTORICAL RESULTS * [...] BLOOD ORDERABLES Final Result Performing Organization Address [facility] de Phone Number HISTORICAL RESULTS * Plasma partial thromboplastin time (PTT) (01/10/2014 10:51 AM CDT) Pathologist [facility] APTT 34.3 25.0 - 37.0 seconds HISTORICAL RESULTS Comment: Interpretive Data Therapeutic heparin range:60.0 - 94.0 sec based on correlation with therapeutic heparin activity range of 0.3 -0.7 Units/mL. Current interpretive data was last revised on 2011. Plasma 01/10/2014 10:5 1 AM CDT Golden Chowdary MD LAB BLOOD ORDERABLES Final Result Performing Organization Address [facility] de Phone Number HISTORICAL RESULTS * Plasma basic metabolic panel (01/10/2014 10:51 AM CDT) Pathologist [facility] Sodium 140 135 - 145 mmol/L HISTORICAL [...] BLOOD ORDERABLES Final Result Performing Organization Address [facility] de Phone Number HISTORICAL RESULTS * [...] copy of the Tool Book at [email or web address] Current Interpretive Data was last [...] RESULTS - 01/19/2014 10:32 AM CDT ? [facility] ?[address] [facility] [address] ?[place], [place] [address] ? Patient Name: ??CURLY CASH ? Med Rec Number: [id number] ? Fin Number: ?[id number] ? Date: ?1955 ? Sex/Age: ? Male 58 years ? Admit Date: ?01/11/2014 ? Discharge Date: 01/15/2014 ? Doctor: ?Ricarda , Golden G ? Facility: ?[facility] ? Location: ?OTHER ?* Abnormal ??A [...]
--- OUTSIDE RECORDS SUMMARY | 2024-04-04 | XMS_ITS | Encounter Summary ---
Author Organization [facility] Healthcare Address [address] [place] [address] Care Team Providers Care Wax Pattern Assembler Name Role Phone Unavailable Primary Care Provider Unavailabl e Encounter Details Date Type Department Care Team (Latest Contact Info) Description 10/19/2013 2:41 PM CDT - 10/19/2013 7:44 PM CDT Hospital Encounter [facility] Dillon Kang MD [address] [facility] [place] [address] Altered mental status; Convulsions (HCC); Abnormal electrocardiogram; Essential hypertension; Other emphysema (HCC); Encounter for long-term (current) use of other medications Social History Tobacco Use Types Packs/Day Years Used Date Smoking Tobacco: Never Assessed Sex and Gender Information Value Date Recorded Sex Assigned at Not on file 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 Gender Identity Not on file Sexual [...] Patient Temperature 37 C 10/19 4:17 PM [facility] HISTORICAL RESULTS pH 7.442 7.350 - 7.450 pCO2 36.2 34.0 - 45.0 mmHg pO2 511.0(H) 84.0 - 92.0 mmHg HCO3 24.3 22.0 - 26.0 mmol/L Total CO2 25.4(L) 26.0 - 28.0 mmol/L Base Excess 0.9 -2.0 - 2.0 mmol/L Hemoglobin 12.4(L) 13.5 - 18.0 g/dL O2 Saturation 98.1 >=95.0 % ABG Carboxyhemoglobin 1.3 <=3.0 % 4:17 PM [facility] HISTORICAL RESULTS ABG Methemoglobin 1.0 [...] O2 Difference 142.8(H) <=10.0 014 4:17 PM [facility] HISTORICAL RESULTS a/A Ratio 0.8 >=0.8 O2 Delivery Device [id number] 2013 4:17 PM [facility] HISTORICAL RESULTS FiO2 100.0 % Tidal Volume 500.0 Vent Mode AC Mechanical Rate 12 4 4:17 PM [facility] HISTORICAL RESULTS PEEP 5 BG Specimen Comment ER-4 10/19 4:17 PM [facility] HISTORICAL RESULTS Corsetier ID DNO 10/19/2013 4:05 PM CDT 10/19/2013 4:14 PM CDT us Dillon Flores MD LAB BLOOD ORDERABLES Final Re sult [facility] HISTORICAL RESULTS * MRSA PCR, surveillance (10/19/2013 3:55 PM CDT) MRSA Surveill Initial NEGATIVE FOR MRSA NEGATIVE 10/19/2013 5:[address] [facility] HISTORICAL RESULTS Comment:MRSA target DNA sequ ences are not detected. 10/19/2013 3:55 PM CDT 10/19/2013 4:16 PM CDT Narrative [facility] HISTORICAL RESULTS - 10/19/2013 5:26 PM CDT Collected By ME ?? 069 us Dillon Flores MD LAB MICROBIOLOGY - GENERAL OR DERABLES Final Result Performing Organization Address [facility] Co de Phone Number [facility] HISTORICAL RESULTS * Microbiology Specimen Report (Converted) (10/19/2013 3:41 PM CDT) 10/19/2013 3:41 PM CDT 10/19/2013 3:59 PM CDT Narrative [facility] HISTORICAL RESULTS - 10/19/2013 3:41 PM CDT Microbiology Specimen Report (Converted) SPECIMEN [id number] ?? COLLECTED: 2013-10-19 15:41:00 [id number] ?? REQ#: [id number] REQUESTING DR: Dillon Flores MD ?? SOURCE: BLOOD ?? SP DESC: --- PROCEDURE --- ?--- RESULT --- ?? CULTURE BLOOD ADULT (SET OF 2) ??(Final) ??- ??Performed at [facility] ?* NO GROWTH DAY 5 - [facility] ? [address] [place] [address] ? [place] [address] ? Tate Novak MD Procedure Note 06/20/2018 Microbiology Specimen Report (Converted) SPECIMEN [id number] COLLECTED: 2013-10-19 15:41:00 [id number] REQ#:[id number] REQUESTING DR: Dillon Flores MD SOURCE: BLOOD SP DESC: --- PROCEDURE --- --- RESULT --- CULTURE BLOOD ADULT (SET OF 2) (Final) - Performed at [facility] * NO GROWTH DAY 5 - [address] [address] Tate Novak MD us Dillon Flores MD LAB BLOOD ORDERABLES Final Re sult Performing Organization Address [facility] Co de Phone Number [facility] HISTORICAL RESULTS * (ABNORMAL) BLOOD GAS w/LYTES & LACTATE (10/19/2013 3:10 PM [facility]NOTE 2[place] Specimen Type ARTERIAL Puncture Site RR Patient Temperature 37 C 10/19 3:25 PM [facility] HISTORICAL RESULTS pH 7.471(H) 7.350 - 7.450 pCO2 33.6(L) 34.0 - 45.0 mmHg pO2 417.0(H) 84.0 - 92.0 mmHg HCO3 24.2 22.0 - 26.0 mmol/L Total CO2 25.3(L) 26.0 - 28.0 mmol/L Base Excess 1.5 -2.0 - 2.0 mmol/L Hemoglobin 12.9(L) 13.5 - 18.0 g/dL O2 Saturation 98.0 >=95.0 % ABG Carboxyhemoglobin 1.7 <=3.0 % 3:25 PM [facility] HISTORICAL RESULTS ABG Methemoglobin 0.7 0.4 - 1.5 % ABG O2 Content 18.8 17.6 - 24.3 Vol % Na+ (BLOOD GAS) 137.0 135.0 - 145.0 mmol/L K+ (BLOOD GAS) 3.6 3.5 - 5.0 mmol/L 10/19/2013 3:[address] [facility] HISTORICAL RESULTS CA++ (ionized) BLOOD GAS 1.17 1.07 - 1.31 mmol/L GLUCOSE (BLOOD GAS) 106.0 70.0 - 110.0 mg/dL Lactate (BLOOD GAS) 2.0(H) 0.4 - 0.8 mEq/L 10/19/2013 3:[address] [facility] HISTORICAL RESULTS A-a O2 Difference 240.0(H) <=10.0 014 3:25 PM [facility] HISTORICAL RESULTS a/A Ratio 0.6(L) >=0.8 O2 Delivery Device [id number] 2013 3:25 PM [facility] HISTORICAL RESULTS FiO2 100.0 % Tidal Volume 500.0 Vent Mode AC Mechanical Rate 12 4 3:25 PM [facility] HISTORICAL RESULTS PEEP 5 Corsetier ID DNO 10/19/2013 3:10 PM CDT 10/19/2013 3:16 PM CDT us Dillon Flores MD LAB BLOOD ORDERABLES Final Re sult [facility] HISTORICAL RESULTS * (ABNORMAL) Drug Screen, Urine without Confirmation (10/19/2013 3:05 PM CDT) [facility] Ur Amphetamine Screen NEGATIVE NEGATIVE 10/19/2013 4:[address] [facility] HISTORICAL RESULTS Comment: Cutoff Limit: ??1000 ng/mL Note: ??Positive results from this drug screen are unconfirmed. ??Unconfirmed screening results should not be used for non-medical purposes. Ur Barbiturates Screen NEGATIVE NEGATIVE 10/19/2013 4:[address] [facility] HISTORICAL RESULTS Comment:Cutoff limit: 200 ng /mL U Benzodiazepines Scrn POSITIVE(H) NEGATIVE 10/19/2013 4:[address] [facility] HISTORICAL RESULTS Comment: RESULT CALLED at: 162710/19/13 by: [id number] to: GILBERT DAVIDSON ?? CONFIRMATION on Positive result requested:N Cutoff limit: 300 ng/mL U Cannabinoids Screen POSITIVE(H) NEGATIVE 10/19/2013 4:[address] [facility] HISTORICAL RESULTS Comment: RESULT CALLED at: 162710/19/13 by: [id number] to: GILBERT DAVIDSON ?? CONFIRMATION on Positive result requested:N Cutoff Limit: 50 ng/mL U Cocaine Metab Screen NEGATIVE NEGATIVE 10/19/2013 4:[address] [facility] HISTORICAL RESULTS Comment:Cutoff limit: 300 ng /mL Urine Opiates Screen POSITIVE(H) NEGATIVE 10/19/2013 4:[address] [facility] HISTORICAL RESULTS Comment: RESULT CALLED at: 162810/19/13 by: [id number] to: GILBERT DAVIDSON ?? CONFIRMATION on Positive result requested:N Cutoff Limit: ??300 ng/mL Urine Creatinine/JANET 155.0 mg/dL Comment:If Creatinine is < 4 0 mg/dL, recollection is suggested. 10/19/2013 3:05 PM CDT 10/19/2013 3:41 PM CDT Narrative [facility] HISTORICAL RESULTS - 10/19/2013 4:14 PM CDT Collected By me ?? 069 us Dillon Flores MD LAB URINE ORDERABLES Final Re sult [facility] HISTORICAL RESULTS * (ABNORMAL) UA with Culture Reflex (10/19/2013 3:05 PM CDT) Ur Collection Type CATHETERIZED 10/19/2013 3:[address] [facility] HISTORICAL RESULTS Ur Culture Indicated? C&S NOT INDICATED 10/19/2013 3:[address] [facility] HISTORICAL RESULTS Urine Color YELLOW YELLOW 10/19/2013 3:[address] [facility] HISTORICAL RESULTS Urine Clarity CLEAR CLEAR 10/19/2013 3:[address] [facility] HISTORICAL RESULTS Urine Glucose (UA) NORMAL NORMAL mg/dL 10/19/2013 3:[address] [facility] HISTORICAL RESULTS Urine Bilirubin NEGATIVE NEGATIVE mg/dl 10/19/2013 3:[address] [facility] HISTORICAL RESULTS Urine Ketones NEGATIVE NEGATIVE mg/dL 10/19/2013 3:[address] [facility] HISTORICAL RESULTS Ur Specific [place] 1.013 1.005 - 1.025 10/19/2013 3:[address] [facility] HISTORICAL RESULTS Urine Blood NEGATIVE NEGATIVE mg/dl 10/19/2013 3:[address] [facility] HISTORICAL RESULTS Urine pH 8.0 5.0 - 8.0 10/19/2013 3:[address] [facility] HISTORICAL RESULTS Urine Protein NEGATIVE NEGATIVE mg/dL 10/19/2013 3:[address] [facility] HISTORICAL RESULTS Urine Urobilinogen 2(H) NORMAL mg/dL 10/19/2013 3:[address] [facility] HISTORICAL RESULTS Urine Nitrite NEGATIVE NEGATIVE 10/19/2013 3:[address] [facility] HISTORICAL RESULTS Ur Leukocyte Esterase NEGATIVE NEGATIVE Ian/ul Ur Microscopic Review Not Indicated 10/19/2013 3:[address] [facility] HISTORICAL RESULTS 10/19/2013 3:05 PM CDT 10/19/2013 3:42 PM CDT [facility] HISTORICAL RESULTS - 10/19/2013 3:49 PM CDT Collected By me ?? 069 us Dillon Flores MD LAB URINE ORDERABLES Final Re sult [facility] HISTORICAL RESULTS * Microbiology Specimen Report (Converted) (10/19/2013 3:00 PM CDT) 10/19/2013 3:00 PM CDT 10/19/2013 3:06 PM CDT [facility] HISTORICAL RESULTS - 10/19/2013 3:00 PM CDT Microbiology Specimen Report (Converted) SPECIMEN [id number] ?? COLLECTED: 2013-10-19 15:00:00 [id number] ?? REQ#: [id number] REQUESTING DR: Dillon Flores MD ?? SOURCE: BLOOD ?? SP DESC: --- PROCEDURE --- ?--- RESULT --- ?? CULTURE BLOOD ADULT (SET OF 2) ??(Final) ??- ??Performed at [facility] ?* NO GROWTH DAY 5 - [facility] ? [address] [facility] ? [place] [address] ? Tate Novak MD Procedure Note 06/20/2018 Microbiology Specimen Report (Converted) SPECIMEN [id number] COLLECTED: 2013-10-19 15:00:00 [id number] REQ#:[id number] REQUESTING DR: Dillon Flores MD SOURCE: BLOOD SP DESC: --- PROCEDURE --- --- RESULT --- CULTURE BLOOD ADULT (SET OF 2) (Final) - Performed at [facility] * NO GROWTH DAY 5 [place] [address] Tate Novak MD us Dillon Flores MD LAB BLOOD ORDERABLES Final Re sult [facility] HISTORICAL RESULTS * (ABNORMAL) TNI with LIPID PANEL (10/19/2013 3:00 PM CDT) [facility] Troponin I < 0.300 0.000 - 0.300 ng/mL 10/19/2013 3:[address] [facility] HISTORICAL RESULTS Comment: Reference using [place] Chemiluminescence ? Negative: Repeat in 4-6 hours as indicated. Triglycerides 159 0 - 199 mg/dL 10/19/2013 3:[address] [facility] HISTORICAL RESULTS Comment:12 hr pc highly luis mmended for Triglyceride Cholesterol 131 0 - 199 mg/dL 10/19/2013 3:[address] [facility] HISTORICAL RESULTS Comment: Borderline: ??200-239 High Risk: ?? >239 HDL Cholesterol 24(L) 40 - 60 mg/dL 10/19/2013 3:[address] [facility] HISTORICAL RESULTS Comment: Major Risk ?< 40 mg/dL Moderate Risk ?40-60 mg/dL Negative Risk ?? > 60 mg/dL LDL Cholesterol, Calc 75 0 - 130 mg/dL 10/19/2013 3:[address] [facility] HISTORICAL RESULTS Comment:High Risk > 159 mg/d L 10/19/2013 3:00 PM CDT 10/19/2013 3:06 PM CDT [facility] HISTORICAL RESULTS - 10/19/2013 3:38 PM CDT Comment Glucose, blood, POC ? Dillon Flores MD LAB BLOOD ORDERABLES Final Re sult [facility] HISTORICAL RESULTS * Protime-INR (10/19/2013 3:00 PM CDT) PT 13.3 12.2 - 14.8 SECONDS 10/19/2013 3:[address] [facility] HISTORICAL RESULTS INR 0.98 0.01 - 5.99 10/19/2013 3:[address] [facility] HISTORICAL RESULTS Comment: Recommended Therapeutic range for Oral Anticoagulant Therapy No anti-coagulation therapy ? Normal Range: ?0.8-1.4 Anti-coagulation therapy ? Low intensity therapy ?2.0-3.0 ? High intensity therapy ?? 2.5-3.5 Critical Value ? Greater than or equal to 6.0 Patients should be monitored for serious bleeding. ?? 10/19/2013 3:00 PM CDT 10/19/2013 3:06 PM CDT [facility] HISTORICAL RESULTS - 10/19/2013 3:35 PM CDT ?? Dillon Flores MD LAB BLOOD ORDERABLES Final Re sult Performing Organization Address [facility]/ZIP Co de Phone Number [facility] HISTORICAL RESULTS * aPTT (10/19/2013 3:00 PM CDT) Pathologist [facility] APTT 31 24 - 38 SECONDS 10/19/2013 3:[address] [facility] HISTORICAL RESULTS 10/19/2013 3:00 PM CDT 10/19/2013 3:06 PM CDT [facility] HISTORICAL RESULTS - 10/19/2013 3:35 PM CDT ?? Dillon Flores MD LAB BLOOD ORDERABLES Final Re sult Performing Organization Address [facility] de Phone Number [facility] HISTORICAL RESULTS * Ethanol (10/19/2013 3:00 PM CDT) [facility] Ethyl Alcohol < 10 mg/dL 10/19/2013 3:[address] [facility] HISTORICAL RESULTS Comment:% = mg/dL x .001 10/19/2013 3:00 PM CDT 10/19/2013 3:06 PM CDT [facility] HISTORICAL RESULTS - 10/19/2013 3:38 PM CDT Comment Glucose, blood, POC ? Dillon Flores MD LAB BLOOD ORDERABLES Final Re sult Performing Organization Address [facility] Co de Phone Number [facility] HISTORICAL RESULTS * (ABNORMAL) Comprehensive metabolic panel (10/19/2013 3:00 PM CDT) [facility] Sodium 138 135 - 145 mmol/L 10/19/2013 3:[address] [facility] HISTORICAL RESULTS Potassium 3.5 3.3 - 5.1 mmol/L 10/19/2013 3:[address] [facility] HISTORICAL RESULTS Chloride 100 96 - 108 mmol/L 10/19/2013 3:[address] [facility] HISTORICAL RESULTS Carbon Dioxide 27 22 - 32 mmol/L 10/19/2013 3:[address] [facility] HISTORICAL RESULTS Anion Gap 11 7 - 16 Glucose [...] gm/dL Albumin/Globulin Ratio 1.1 1.1 - 1.8 10/19/2013 3:[address] [facility] HISTORICAL RESULTS Total Bilirubin 0.5 0.0 - 1.2 mg/dL 10/19/2013 3:[address] [facility] HISTORICAL RESULTS AST 24 0 - 40 U/L 10/19/2013 3:[address] [facility] HISTORICAL RESULTS ALT 17 0 - 41 U/L 10/19/2013 3:[address] [facility] HISTORICAL RESULTS Alkaline Phosphatase 34(L) 40 - 129 U/L 10/19/2013 3:[address] [facility] HISTORICAL RESULTS 10/19/2013 3:00 PM CDT 10/19/2013 3:06 PM CDT Narrative [facility] HISTORICAL RESULTS - 10/19/2013 3:38 PM CDT Comment Glucose, blood, POC ? us Dillon Flores MD LAB BLOOD ORDERABLES Final Re sult [facility] HISTORICAL RESULTS * (ABNORMAL) CBC with auto differential (10/19/2013 3:00 PM CDT) WBC 13.0(H) 4.6 - 10.2 x10 3/ul 10/19/2013 3:[address] [facility] HISTORICAL RESULTS RBC 3.83(L) 4.11 - 5.71 x10 6/ul 10/19/2013 3:[address] [facility] HISTORICAL RESULTS Hemoglobin 13.3 13.0 - 17.0 g/dl 10/19/2013 3:[address] [facility] HISTORICAL RESULTS Hct 37.6(L) 38.2 - 48.5 % 10/19/2013 3:[address] [facility] HISTORICAL RESULTS MCV 98.2(H) 80.0 - 97.0 fl 10/19/2013 3:[address] [facility] HISTORICAL RESULTS MCH 34.7(H) 27.0 - 31.2 pg 10/19/2013 3:[address] [facility] HISTORICAL RESULTS MCHC 35.4 31.8 - 35.4 g/dl 10/19/2013 3:[address] [facility] HISTORICAL RESULTS RDW 11.9 11.6 - 14.8 % Plt Count 383 124 - 400 x10 3/ul MPV 8.8 7.4 - 10.4 fl Differential Method AUTOMATED DIFF --------- -- Neut % 70.1 37.0 - 85.0 % Immature Gran % 0.5 0.0 - 3.0 % Lymph % 19.7 5.0 - 45.0 % [place] % 7.4 3.0 - 15.0 % Eos [...] (auto) 0.2 0.0 - 0.7 x10 3/ul 10/19/2013 3:[address] [facility] HISTORICAL RESULTS Absolute Basos (auto) 0.1 0.0 - 0.2 x10 3/ul 10/19/2013 3:[address] [facility] HISTORICAL RESULTS 10/19/2013 3:00 PM CDT 10/19/2013 3:06 PM CDT Narrative [facility] HISTORICAL RESULTS - 10/19/2013 3:14 PM CDT ?? us Dillon Flores MD LAB BLOOD ORDERABLES Final Re sult Performing Organization Address City/[facility]/ZIP Co de Phone Number [facility] HISTORICAL RESULTS * Ammonia (10/19/2013 3:00 PM CDT) Ammonia 69 27 - 102 ug/dL 10/19/2013 3:[address] [facility] HISTORICAL RESULTS Comment:Lipemic specimen 10/19/2013 3:00 PM CDT 10/19/2013 3:06 PM CDT Narrative [facility] HISTORICAL RESULTS - 10/19/2013 3:48 PM CDT Comment Glucose, blood, POC ? us Dillon Flores MD LAB BLOOD ORDERABLES Final Re sult Performing Organization Address [facility] Co de Phone Number [facility] HISTORICAL RESULTS * XR Chest 1 [...] Nickerson M.D. CN:madhav 04:30 PM 04:30 PM [facility] [EOD] Narrative 10/19/2013 4:35 PM CDT EXAMINATION: [...] Nickerson M.D. CN:madhav 04:30 PM 04:30 PM [facility] [EOD] us Dillon Flores MD IMG XR [...] Vela D.O. :as 04:56 PM 04:56 PM [facility] [EOD] Dillon Flores MD IMG CT PROCEDURES Final Resul t documented in this encounter Visit Diagnoses Diagnosis Altered mental status Convulsions (HCC) Other convulsions Abnormal electrocardiogram Nonspecific abnormal electrocardiogram (ECG) (EKG) Essential hypertension Unspecified essential hypertension Other emphysema (HCC) Other emphysema Encounter for long-term (current) use of other medications documented in this encounter
--- OUTSIDE RECORDS SUMMARY | 2024-04-04 | XMS_ITS | Encounter Summary ---
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 After arrival to [facility], his sedation was weaned, and he had [...] 08:37 A Juani Ag M.D. Tanja Sandhu/aneta #[id number] Editing MT: TD: 10/20/2013 18:34:00 cc: Tanja Hodges M.D. documented in this encounter Consult Notes * Provider, MD Mirna - 10/22/2013 12:00 AM CDT Patient: Curly Angelo Reg No: [id number] [facility] #: [id number] Admit Dt.: 10/19/2013 : 1955 Room No: [...] intubated. The patient was then transferred to [facility] for further care. Here he was directly [...] disabled. 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 PHYSICAL EXAMINATION: HEENT: The patient opens eyes [...] M.D. 10/26/2013 05:49 P Golden Chowdary M.D. /[facility] #[id number] Editing MT: TD: 10/22/2013 16:21:00 cc: Tanja Corado M.D. Afshin Salehi, M.D. documented in this encounter Miscellaneous Notes * Op Note - Provider, MD Mirna - 10/22/2013 12:00 AM CDT Patient: Curly Angelo Reg No: [id number] [facility] #: [id number] Admit Dt.: 10/19/2013 : 1955 Pt Type: 100 Room No: 104IC Attending: Golden Chowdary M.D. Surgeon: Golden Chowdary M.D. Dictating: Golden Chowdary M.D. Service Dt: 10/22/2013 OPERATIVE REPORT FIRST MARKETING INTELLIGENCE MANAGER: Juani Grier M.D. SECOND/THIRD MARKETING INTELLIGENCE MANAGER: Betty Mariano M.D. ANESTHESIA: General endotracheal anesthesia. [...] then positioned in the Cohen head of ict and the left side of his head [...] Chowdary M.D. 10/26/2013 05:49 P Tanja Corado/jude #[id number] Editing MT: TD: 10/22/2013 22:56:00 cc: Golden [...] 10/23/2013 7:58 AM CDT URINE (AEROBIC) CULTURE, [facility] Routine 10/22/2013 11:18 PM CDT BLOOD CULTURE, [...] agrees with it. ACC# ??Date Time ??Exam [id number] Nov 12, 2013 08:25:00 [id number] Chest 1 view Frontal EXAMINATION: ?Chest 1 [...] agrees with it. ACC# Date Time Exam [id number] Nov 12, 2013 08:25:00 [id number] Chest 1 view Frontal EXAMINATION: Chest 1 [...] L ORDERABLES Final Result Performing Organization Address [facility] Co de Phone Number [...] L ORDERABLES Final Result Performing Organization Address [facility] de Phone Number HISTORICAL [...] ORDERABL ES Final Result Performing Organization Address [facility] Co de Phone Number HISTORICAL RESULTS * Discharge Laboratory Cumulative Report (11/12/2013 12:00 AM CDT) 11/12/2013 Narrative HISTORICAL RESULTS - 11/14/2013 3:24 PM CDT ?[facility] ?Department of Laboratories ? [facility] [place] ? [place] [id number] Patient Name: ??CURLY ANGELO Rec Number: [id number] Fin Number: ?[id number] Date: ?1955 Sex/Age: ? Male 58 years Admit Date: ?10/19/2013 Discharge Date: 11/12/2013 Doctor: ?Sherron Mahan Facility: ?[facility] Location: ?[id number] [id number] Chart Printed: 11/14/2013 15:24 ?? * Abnormal [...] and children were not included. ??(Diabetes Care 31:8505-4305, 2008). ??The eAG is not equivalent to [...] for the diagnosis of myocardial infarction (Third Energy Definition of Myocardial Infarction. ??J Am Mary [...] ?URINALYSIS ?Macroscopic ?Test: Color ? Clarity ?Specific [place] ? Reference: [Yellow] ??[Clear] ?[1.003-1.030] ? Units: [...] ?Test: Neut Pct Auto ??Lymph Pct Auto ??Hyde Pct Auto ? Reference: [38.7-74.5] ?[20.0-54.3] ? [...] 0.2 ?11.7 ??H ?Test: Lymph Abs Auto ??Hyde Abs Auto ??Eos Abs Auto ? Reference: [...] updated copy of the Tool Book at [email or web address] Current Interpretive Data was last [...] organism identification may be performed using the [employer] Nanosphere Gram Positive Blood Culture Assay. ??The Nanosphere assay detects microbial DNA in positive blood culture broth via hybridization of target DNA to capture oligonucleotides on a microarray. ??This assay has been cleared by the [place] Food and Drug Administration and its performance characteristics have been verified by the [facility] Microbiology Laboratory.Current Interpretive Data was last revised [...] organism identification may be performed using the [employer] Nanosphere Gram Positive Blood Culture Assay. ??The Nanosphere assay detects microbial DNA in positive blood culture broth via hybridization of target DNA to capture oligonucleotides on a microarray. ??This assay has been cleared by the [place] Food and Drug Administration and its performance characteristics have been verified by the [facility] Microbiology Laboratory.Current Interpretive Data was last revised [...] organism identification may be performed using the [employer] Nanosphere Gram Positive Blood Culture Assay. ??The Nanosphere assay detects microbial DNA in positive blood culture broth via hybridization of target DNA to capture oligonucleotides on a microarray. ??This assay has been cleared by the [place] Food and Drug Administration and its performance characteristics have been verified by the [facility] Microbiology Laboratory.Current Interpretive Data was last revised [...] organism identification may be performed using the [employer] Nanosphere Gram Positive Blood Culture Assay. ??The Nanosphere assay detects microbial DNA in positive blood culture broth via hybridization of target DNA to capture oligonucleotides on a microarray. ??This assay has been cleared by the [place] Food and Drug Administration and its performance characteristics have been verified by the [facility] Microbiology Laboratory.Current Interpretive Data was last revised [...] organism identification may be performed using the [employer] Nanosphere Gram Positive Blood Culture Assay. ??The Nanosphere assay detects microbial DNA in positive blood culture broth via hybridization of target DNA to capture oligonucleotides on a microarray. ??This assay has been cleared by the [place] Food and Drug Administration and its performance characteristics have been verified by the [facility] Microbiology Laboratory.Current Interpretive Data was last revised [...] organism identification may be performed using the [employer] Nanosphere Gram Positive Blood Culture Assay. ??The Nanosphere assay detects microbial DNA in positive blood culture broth via hybridization of target DNA to capture oligonucleotides on a microarray. ??This assay has been cleared by the [place] Food and Drug Administration and its performance characteristics have been verified by the [facility] Laboratory.Current Interpretive Data was last revised [...] performance characteristics have been verified by the [facility] Microbiology Laboratory.Current Interpretive Data was last revised [...] organism identification may be performed using the [employer] Nanosphere Gram Positive Blood Culture Assay. ??The Nanosphere assay detects microbial DNA in positive blood culture broth via hybridization of target DNA to capture oligonucleotides on a microarray. ??This assay has been cleared by the [place] Food and Drug Administration and its performance characteristics have been verified by the [facility] Microbiology Laboratory.Current Interpretive Data was last revised [...] organism identification may be performed using the [employer] Nanosphere Gram Positive Blood Culture Assay. ??The Nanosphere assay detects microbial DNA in positive blood culture broth via hybridization of target DNA to capture oligonucleotides on a microarray. ??This assay has been cleared by the [place] Food and Drug Administration and its performance characteristics have been verified by the [facility] Microbiology Laboratory.Current Interpretive Data was last revised [...] organism identification may be performed using the [employer] Nanosphere Gram Positive Blood Culture Assay. ??The Nanosphere assay detects microbial DNA in positive blood culture broth via hybridization of target DNA to capture oligonucleotides on a microarray. ??This assay has been cleared by the [place] Food and Drug Administration and its performance characteristics have been verified by the [facility] Microbiology Laboratory.Current Interpretive Data was last revised [...] organism identification may be performed using the [employer] Nanosphere Gram Positive Blood Culture Assay. ??The Nanosphere assay detects microbial DNA in positive blood culture broth via hybridization of target DNA to capture oligonucleotides on a microarray. ??This assay has been cleared by the [place] Food and Drug Administration and its performance characteristics have been verified by the [facility] Microbiology Laboratory.Current Interpretive Data was last revised [...] organism identification may be performed using the [employer] Nanosphere Gram Positive Blood Culture Assay. ??The Nanosphere assay detects microbial DNA in positive blood culture broth via hybridization of target DNA to capture oligonucleotides on a microarray. ??This assay has been cleared by the [place] Food and Drug Administration and its performance characteristics have been verified by the [facility] Microbiology Laboratory.Current Interpretive Data was last revised [...] organism identification may be performed using the [employer] Nanosphere Gram Positive Blood Culture Assay. ??The Nanosphere assay detects microbial DNA in positive blood culture broth via hybridization of target DNA to capture oligonucleotides on a microarray. ??This assay has been cleared by the [place] Food and Drug Administration and its performance characteristics have been verified by the [facility] Microbiology Laboratory.Current Interpretive Data was last revised [...] organism identification may be performed using the [employer] Nanosphere Gram Positive Blood Culture Assay. ??The Nanosphere assay detects microbial DNA in positive blood culture broth via hybridization of target DNA to capture oligonucleotides on a microarray. ??This assay has been cleared by the [place] Food and Drug Administration and its performance characteristics have been verified by the [facility] Microbiology Laboratory.Current Interpretive Data was last revised [...] performance characteristics have been verified by the [facility] Microbiology Laboratory.Current Interpretive Data was last revised [...] performance characteristics have been verified by the [facility] Microbiology Laboratory.Current Interpretive Data was last revised [...] RESULTS - 11/14/2013 4:10 PM CDT ? [facility] ?[facility] ?[place] [address] ? Patient Name: ??CURLY ANGELO ? Med Rec Number: [id number] ? Fin Number: ?[id number] ? Date: ?1955 ? Sex/Age: ? Male 58 years ? Admit Date: ?10/19/2013 ? Discharge Date: 11/12/2013 ? Doctor: ?Sherron Mahan ? Facility: ?[facility] ? Location: ?[phone] ?* Abnormal ??A Alert ??f Footnote [...] RESULTS - 11/13/2013 10:14 AM CDT ? [facility] ?[facility] [place] ?[place] [address] ? Patient Name: ??CURLY ANGELO ? Med Rec Number: [id number] ? Fin Number: ?[id number] ? Date: ?1955 ? Sex/Age: ? Male 58 years ? Admit Date: ?10/19/2013 ? Discharge Date: 11/12/2013 ? Doctor: ?Sherron Mahan ? Facility: ?[facility] ? Location: ?[phone] ?* Abnormal ??A Alert ??f Footnote [...] RESULTS - 11/13/2013 3:59 AM CDT ? [facility] ?[facility] [place] ?[place] [address] [id number] ? Patient Name: ??CURLY ANGELO ? Med Rec Number: [id number] ? Fin Number: ?[id number] ? Date: ?1955 ? Sex/Age: ? Male 58 years ? Admit Date: ?10/19/2013 ? Discharge Date: 11/12/2013 ? Doctor: ?Sherron Mahan ? Facility: ?[facility] ? Location: ?[phone] ?* Abnormal ??A Alert ??f Footnote [...] L ORDERABLES Final Result Performing Organization Address [facility] de Phone Number HISTORICAL [...] Myrna l Result Performing Organization Address [facility] de Phone Number HISTORICAL RESULTS * Plasma phosphorus (11/11/2013 2:24 AM CDT) Pathologist [facility] Phosphorus, pl 3.6 2.3 - 4.3 mg/dl HISTORICAL RESULTS Plasma 11/11/2013 2:24 AM CDT Marion Funes MD LAB BLOOD ORDERABLES Myrna l Result Performing Organization Address [facility] Co de Phone Number HISTORICAL RESULTS * Serum magnesium (11/11/2013 2:24 AM CDT) [facility] Magnesium 1.7 1.4 - 2.5 mg/dl HISTORICAL RESULTS Serum 11/11/2013 2:24 AM CDT Marion Funes MD LAB BLOOD ORDERABLES Myrna l Result Performing Organization Address [facility] de Phone Number HISTORICAL RESULTS * (ABNORMAL) Blood cell count (CBC) (11/11/2013 2:24 AM CDT) [facility] Basophils 0.4 0.0 - 3.0 % HISTORICAL [...] Myrna l Result Performing Organization Address [facility] Co de Phone Number [...] Myrna l Result Performing Organization Address [facility] de Phone Number HISTORICAL [...] agrees with it. ACC# ??Date Time ??Exam [id number] Nov 10, 2013 08:24:00 [id number] Chest 1 view Frontal EXAMINATION: ?? Chest [...] agrees with it. ACC# Date Time Exam [id number] Nov 10, 2013 08:24:00 [id number] Chest 1 view Frontal EXAMINATION: Chest one [...] Myrna l Result Performing Organization Address [facility] de Phone Number HISTORICAL RESULTS * (ABNORMAL) Plasma phosphorus (11/09/2013 9:47 AM CDT) Phosphorus, pl 5.7(H) 2.3 - 4.3 mg/dl HISTORICAL RESULTS Plasma 11/09/2013 9:47 AM CDT Marion Funes MD LAB BLOOD ORDERABLES Myrna l Result Performing Organization Address [facility] de Phone Number HISTORICAL RESULTS * Serum magnesium (11/09/2013 9:47 AM CDT) Magnesium 1.8 1.4 - 2.5 mg/dl HISTORICAL RESULTS Serum 11/09/2013 9:47 AM CDT Marion Funes MD LAB BLOOD ORDERABLES Myrna l Result Performing Organization Address [facility] de Phone Number HISTORICAL [...] agrees with it. ACC# ??Date Time ??Exam [id number] Nov 08, 2013 15:40:00 [id number] Mod Swallow EXAMINATION: ?? Modified Barium Swallow [...] agrees with it. ACC# Date Time Exam [id number] Nov 08, 2013 15:40:00 [id number] Mod Swallow EXAMINATION: Modified Barium Swallow HISTORY: [...] ORDERABL ES Final Result Performing Organization Address [facility] de Phone Number HISTORICAL RESULTS * (ABNORMAL) Plasma phosphorus (11/05/2013 6:30 PM CDT) Phosphorus, pl 5.7(H) 2.3 - 4.3 mg/dl HISTORICAL RESULTS Plasma 11/05/2013 6:30 PM CDT Mirela Wilder MD PhD LAB BLOOD ORDERABL ES Final Result Performing Organization Address [facility] Co de Phone Number HISTORICAL RESULTS * Serum magnesium (11/05/2013 6:30 PM CDT) Magnesium 1.9 1.4 - 2.5 mg/dl HISTORICAL RESULTS Serum 11/05/2013 6:30 PM CDT Mirela Wilder MD PhD LAB BLOOD ORDERABL ES Final Result Performing Organization Address [facility] de Phone Number HISTORICAL [...] ORDERAB LES Final Result Performing Organization Address [facility] de Phone Number HISTORICAL RESULTS * (ABNORMAL) Plasma phosphorus (11/05/2013 7:39 AM CDT) Phosphorus, pl 5.4(H) 2.3 - 4.3 mg/dl HISTORICAL RESULTS Plasma 11/05/2013 7:39 AM CDT Viky Ndiaye MD LAB BLOOD ORDERAB LES Final Result Performing Organization Address [facility] de Phone Number HISTORICAL RESULTS * Serum magnesium (11/05/2013 7:39 AM CDT) Magnesium 1.7 1.4 - 2.5 mg/dl HISTORICAL RESULTS Serum 11/05/2013 7:39 AM CDT Viky Ndiaye MD LAB BLOOD ORDERAB LES Final Result Performing Organization Address [facility] de Phone Number HISTORICAL [...] Myrna l Result Performing Organization Address [facility] de Phone Number HISTORICAL RESULTS * (ABNORMAL) Plasma phosphorus (11/04/2013 12:47 AM CDT) Phosphorus, pl 4.9(H) 2.3 - 4.3 mg/dl HISTORICAL RESULTS Plasma 11/04/2013 12:4 7 AM CDT Historical Provider MD LAB BLOOD ORDERABLES Myrna l Result Performing Organization Address [facility] Co de Phone Number HISTORICAL RESULTS * Serum magnesium (11/04/2013 12:47 AM CDT) Magnesium 1.9 1.4 - 2.5 mg/dl HISTORICAL RESULTS Serum 11/04/2013 12:4 7 AM CDT Historical Provider MD LAB BLOOD ORDERABLES Myrna l Result HISTORICAL RESULTS * (ABNORMAL) Blood cell count (CBC) (11/04/2013 12:47 AM CDT) Pathologist [facility] WBC 12.5(H) 3.8 - 9.8 K/cumm HISTORICAL [...] basic metabolic panel (11/03/2013 2:09 AM CDT) [facility] Sodium 138 135 - 145 mmol/L HISTORICAL [...] count (CBC) (11/03/2013 2:09 AM CDT) Pathologist [facility] WBC 16.9(H) 3.8 - 9.8 K/cumm HISTORICAL [...] ORDER ECHO Final Result Performing Organization Address [facility] de Phone Number HISTORICAL [...] ORDERABLES Myrna l Result Performing Organization Address City/State/[facility] Co de Phone Number [...] agrees with it. ACC# ??Date Time ??Exam [id number] Nov 01, 2013 10:54:00 [id number] G Tube Placemnt EXAMINATION: ?? PERCUTANEOUS GASTROSTOMY [...] was obtained. Prior to beginning the procedure, Energy Protocol was performed to confirm the patient's [...] was dilated over a guidewire to 14 Namibian and a 14 Namibian locking pigtail catheter was advanced into the [...] agrees with it. ACC# Date Time Exam [id number] Nov 01, 2013 10:54:00 [id number] G Tube Placemnt EXAMINATION: PERCUTANEOUS GASTROSTOMY CATHETER [...] was obtained. Prior to beginning the procedure, Energy Protocol was performed to confirm the patient's [...] was dilated over a guidewire to 14 [place]ian and a 14 Namibian locking pigtail catheter was advanced into the [...] ORDERABLES Final Resul t Performing Organization Address [facility] de Phone Number HISTORICAL RESULTS * [...] updated copy of the Tool Book at [email or web address] Current Interpretive Data was last revised 2011. Plasma 11/01/2013 12:1 6 AM CDT Bonnie Aldridge LAB BLOOD ORDERABLES Final Resul t Performing Organization Address [facility] de Phone Number HISTORICAL [...] M.D. FINAL REPORT ACC# ??Date Time ??Exam [id number] Oct 31, 2013 05:03:00 [id number] Chest 1 view Frontal EXAMINATION: ?? CHEST, [...] M.D. FINAL REPORT ACC# Date Time Exam [id number] Oct 31, 2013 05:03:00 [id number] Chest 1 view Frontal EXAMINATION: CHEST, FRONTAL [...] M.D. FINAL REPORT ACC# ??Date Time ??Exam [id number] Oct 31, 2013 02:09:00 [id number] Abdomen single view AP EXAMINATION: ?? Abdomen [...] M.D. FINAL REPORT ACC# Date Time Exam [id number] Oct 31, 2013 02:09:00 [id number] Abdomen single view AP EXAMINATION: Abdomen one [...] ORDERABLES Myrna l Result Performing Organization Address [facility] de Phone Number HISTORICAL [...] Myrna l Result Performing Organization Address [facility] de Phone Number HISTORICAL RESULTS * Clostridium difficile toxin (10/30/2013 1:19 PM CDT) Stool (Unknown) 10/30/2013 1 :19 PM CDT 10/30/2013 2:34 PM CDT Narrative HISTORICAL RESULTS - 10/31/2013 1:35 AM CDT Negative for: Clostridium difficile toxin. Historical Provider LAB MICROBIOLOGY - GENERA L ORDERABLES Final Result Performing Organization Address [facility] de Phone Number HISTORICAL RESULTS * Plasma [...] Myrna l Result Performing Organization Address [facility] de Phone Number HISTORICAL [...] agrees with it. ACC# ??Date Time ??Exam [id number] Oct 30, 2013 01:02:00 [id number] Chest 1 view Frontal EXAMINATION: ?? Chest, [...] agrees with it. ACC# Date Time Exam [id number] Oct 30, 2013 01:02:00 [id number] Chest 1 view Frontal EXAMINATION: Chest, 1 [...] RESULTS - 11/13/2013 3:59 AM CDT ? [facility] ?[facility] [place] ?[place] [id number] ? Patient Name: ??CURLY ANGELO ? Med Rec Number: [id number] ? Fin Number: ?[id number] ? Date: ?1955 ? Sex/Age: ? Male 58 years ? Admit Date: ?10/19/2013 ? Discharge Date: 11/12/2013 ? Doctor: ?Sherron Mahan ? Facility: ?[facility] ? Location: ?0114 [address] ?* Abnormal ??A Alert ??f Footnote [...] agrees with it. ACC# ??Date Time ??Exam [id number] Oct 29, 2013 07:30:[id number] Head or Brain w/o cont EXAMINATION: [...] agrees with it. ACC# Date Time Exam [id number] Oct 29, 2013 07:30:[id number] Head or Brain w/o cont EXAMINATION: [...] gas, arterial (10/29/2013 6:41 AM CDT) Pathologist [facility] Ph, art 7.48(H) 7.35 - 7.45 HISTORICAL [...] Myrna l Result Performing Organization Address [facility] Co de Phone Number HISTORICAL RESULTS * Blood potassium, mixed venous (10/29/2013 3:25 AM CDT) [facility] Potassium, bld 4.6 3.3 - 4.9 mmol/L HISTORICAL RESULTS Comment: Hemolyzed; potassium value may be falsely elevated by as much as 0.3 - 0.5 mmol/L. Suggest redraw and reanalysis. Mixed venous blood 10/29/2013 3:25 AM CDT Simón Bush MD LAB BLOOD ORDERABLES Final Resul t Performing Organization Address [facility] Co de Phone Number HISTORICAL RESULTS * Plasma basic metabolic panel (10/29/2013 12:36 AM CDT) Pathologist [facility] Sodium 139 135 - 145 mmol/L HISTORICAL [...] ORDERABLES Myrna l Result Performing Organization Address [facility]/ZIP Co de Phone Number HISTORICAL RESULTS * [...] agrees with it. ACC# ??Date Time ??Exam [id number] Oct 28, 2013 01:05:00 00490 Chest 1 view Frontal EXAMINATION: ?? Chest [...] agrees with it. ACC# Date Time Exam [id number] Oct 28, 2013 01:05:00 [id number] Chest 1 view Frontal EXAMINATION: Chest one [...] ORDERABLES Myrna l Result Performing Organization Address City/[facility] de Phone Number HISTORICAL RESULTS * (ABNORMAL) Blood cell count (CBC) (10/28/2013 12:56 AM CDT) Pathologist [facility] WBC 11.7(H) 3.8 - 9.8 K/cumm HISTORICAL [...] ORDERABLES Myrna l Result Performing Organization Address City/[facility]/ZIP Co de Phone Number HISTORICAL RESULTS * Aerobic culture and Gram stain (10/27/2013 5:21 PM CDT) Sputum (Unknown) 10/27/2013 5:21 PM CDT 10/27/2013 5:21 PM CDT Historical Provider LAB MICROBIOLOGY - GENERA L ORDERABLES Final Result Performing Organization Address [facility] de Phone Number HISTORICAL [...] ORDERABLES Final Res ult Performing Organization Address City/[facility]/ZIP Co de Phone Number HISTORICAL RESULTS * [...] L ORDERABLES Final Result Performing Organization Address [facility] Co de Phone Number [...] organism identification may be performed using the [employer] Nanosphere Gram Positive Blood Culture Assay. ??The Nanosphere assay detects microbial DNA in positive blood culture broth via hybridization of target DNA to capture oligonucleotides on a microarray. ??This assay has been cleared by the [place] Food and Drug Administration and its performance characteristics have been verified by the [facility] Laboratory. Current Interpretive Data was last revised on 2013. Narrative HISTORICAL RESULTS - 11/02/2013 2:49 AM CDT No growth Historical Provider MD LAB MICROBIOLOGY - GENERA L ORDERABLES Final Result Performing Organization Address City/[facility] Co de Phone Number [...] organism identification may be performed using the [employer] Nanosphere Gram Positive Blood Culture Assay. ??The Nanosphere assay detects microbial DNA in positive blood culture broth via hybridization of target DNA to capture oligonucleotides on a microarray. ??This assay has been cleared by the [place] Food and Drug Administration and its performance characteristics have been verified by the [facility]. Current Interpretive Data was last revised on 2013. Narrative HISTORICAL RESULTS - 11/02/2013 2:49 AM CDT No growth Historical Provider MD LAB MICROBIOLOGY - GENERA L ORDERABLES Final Result Performing Organization Address City/[facility] Co de Phone Number [...] agrees with it. ACC# ??Date Time ??Exam [id number] Oct 27, 2013 05:47:[id number] Head or Brain w/o cont EXAMINATION: [...] this written report and agrees with it. [facility]# Date Time Exam [id number] Oct 27, 2013 05:47:[id number] Head or Brain w/o cont EXAMINATION: [...] M.D. FINAL REPORT ACC# ??Date Time ??Exam [id number] Oct 27, 2013 01:20:00 [id number] Chest 1 view Frontal EXAMINATION: ?? One [...] M.D. FINAL REPORT ACC# Date Time Exam [id number] Oct 27, 2013 01:20:00 [id number] Chest 1 view Frontal EXAMINATION: One View [...] RESULTS - 11/13/2013 3:59 AM CDT ? [facility] ?[facility] [place] ?[place] [address] ? Patient Name: ??CURLY ANGELO ? Med Rec Number: [id number] ? Fin Number: ?[id number] ? Date: ?1955 ? Sex/Age: ? Male 58 years ? Admit Date: ?10/19/2013 ? Discharge Date: 11/12/2013 ? Doctor: ?Sherron Mahan ? Facility: ?[facility] ? Location: ?[address]14 [address] 02 ?* Abnormal ??A Alert ??f Footnote [...] RESULTS - 11/13/2013 3:59 AM CDT ? [facility] ?[facility] [place] ?[place], [facility] [address] ? Patient Name: ??GI, CURLY ? Med Rec Number: [id number] ? Fin Number: ?[id number] ? Date: ?1955 ? Sex/Age: ? Male 58 years ? Admit Date: ?10/19/2013 ? Discharge Date: 11/12/2013 ? Doctor: ?Sherron Mahan ? Facility: ?[facility] ? Location: ?[address]14 [address] 02 ?* Abnormal ??A Alert ??f Footnote [...] identification may be ? performed using the [employer] Nanosphere Gram Positive Blood ? Culture Assay. ??The Nanosphere assay detects microbial DNA in ? positive blood culture broth via hybridization of target DNA to ? capture oligonucleotides on a microarray. ??This assay has been ? cleared by the [place] Food and Drug Administration and ? its performance characteristics have been verified by the ? [facility].Current ? Interpretive Data was last revised on 2013. ? us Historical Provider MD LAB MICROBIOLOGY - GENERA L ORDERABLES Final Result HISTORICAL RESULTS * All Microbiology Report Section (10/27/2013 12:00 AM CDT) 10/27/2013 Narrative HISTORICAL RESULTS - 11/13/2013 3:59 AM CDT ? [facility] ?[facility] [place] ?[place], [place] [address] ? Patient Name: ??GI CURLY ? Med Rec Number: [id number] ? Fin Number: ?[id number] ? Date: ?1955 ? Sex/Age: ? Male 58 years ? Admit Date: ?10/19/2013 ? Discharge Date: 11/12/2013 ? Doctor: ?Sherron Mahan ? Facility: ?[facility] ? Location: ?0114 [address] 02 ?* Abnormal ??A Alert ??f Footnote [...] identification may be ? performed using the [employer] Nanosphere Gram Positive Blood ? Culture Assay. ??The Nanosphere assay detects microbial DNA in ? positive blood culture broth via hybridization of target DNA to ? capture oligonucleotides on a microarray. ??This assay has been ? cleared by the [place] Food and Drug Administration and ? its performance characteristics have been verified by the ? [facility].Current ? Interpretive Data was last revised on 2013. ? us Historical Provider MD LAB MICROBIOLOGY - GENERA L ORDERABLES Final Result HISTORICAL RESULTS * All Microbiology Report Section (10/27/2013 12:00 AM CDT) 10/27/2013 Narrative HISTORICAL RESULTS - 11/13/2013 3:59 AM CDT ? [facility] ?[facility] [place] ?[place], [place] [address] ? Patient Name: ??CURLY ANGELO ? Med Rec Number: [id number] ? Fin Number: ?[id number] ? Date: ?1955 ? Sex/Age: ? Male 58 years ? Admit Date: ?10/19/2013 ? Discharge Date: 11/12/2013 ? Doctor: ?Sherron Mahan ? Facility: ?[facility] ? Location: ?[address]14 [address] 02 ?* Abnormal ??A Alert ??f Footnote [...] agrees with it. ACC# ??Date Time ??Exam [id number] Oct 26, 2013 01:02:00 83844 Chest 1 view Frontal EXAMINATION: ?Chest 1 view IMPRESSION: ?Comparison is made to chest radiograph dated 10/25/2013. Endotracheal tube is 7 cm above the ti. Nasogastric tube ends below the diaphragm and off the [id number]. Improved aeration of the lungs with mild [...] agrees with it. ACC# Date Time Exam [id number] Oct 26, 2013 01:02:00 [id number] Chest 1 view Frontal EXAMINATION: Chest 1 view IMPRESSION: Comparison is made to chest radiograph dated 10/25/2013. Endotracheal tube is 7 cm above the ti. Nasogastric tube ends below the diaphragm and off the [id number]. Improved aeration of the lungs with mild [...] blood 10/26/2013 12 :56 AM CDT Juani Grier MD LAB BLOOD [...] ORDERABLES Myrna shantel Result Performing Organization Address [facility] de Phone Number HISTORICAL [...] Myrna l Result Performing Organization Address [facility] de Phone Number HISTORICAL [...] * Plasma phosphorus (10/26/2013 12:51 AM CDT) [facility] Phosphorus, pl 3.3 2.3 - 4.3 mg/dl [...] L ORDERABLES Final Result Performing Organization Address [facility] de Phone Number HISTORICAL [...] organism identification may be performed using the [employer] Nanosphere Gram Positive Blood Culture Assay. ??The Nanosphere assay detects microbial DNA in positive blood culture broth via hybridization of target DNA to capture oligonucleotides on a microarray. ??This assay has been cleared by the [place] Food and Drug Administration and its performance characteristics have been verified by the [facility]. Current Interpretive Data was last revised on 2013. Narrative HISTORICAL RESULTS - 10/31/2013 1:32 AM CDT No growth Historical Provider LAB MICROBIOLOGY - GENERA L ORDERABLES Final Result Performing Organization Address [facility] de Phone Number HISTORICAL [...] organism identification may be performed using the [employer] Nanosphere Gram Positive Blood Culture Assay. ??The Nanosphere assay detects microbial DNA in positive blood culture broth via hybridization of target DNA to capture oligonucleotides on a microarray. ??This assay has been cleared by the [place] Food and Drug Administration and its performance characteristics have been verified by the [facility]. Current Interpretive Data was last revised on 2013. Narrative HISTORICAL RESULTS - 10/31/2013 1:32 AM CDT No growth Historical Provider MD LAB MICROBIOLOGY - GENERA L ORDERABLES Final Result Performing Organization Address [facility] de Phone Number HISTORICAL RESULTS * Urine (aerobic) culture (10/25/2013 6:38 PM CDT) Urine, catheterized (Unknown) 10/25/2013 6:38 PM CDT 10/25/2013 7:30 PM CDT Narrative HISTORICAL RESULTS - 10/27/2013 10:28 AM CDT No growth Historical Provider MD LAB MICROBIOLOGY - GENERA L ORDERABLES Final Result Performing Organization Address [facility] de Phone Number HISTORICAL [...] Myrna l Result Performing Organization Address [facility] Co de Phone Number [...] Myrna l Result Performing Organization Address [facility] de Phone Number HISTORICAL [...] Myrna l Result Performing Organization Address [facility] Co de Phone Number HISTORICAL RESULTS * XR Chest 1 View (10/25/2013 1:40 AM CDT) Anatomical Region Laterality Modality Body, Chest N/A Radiographic Tawanna ging 10/25/2013 1:40 AM CDT Narrative 10/25/2013 11:38 AM CDT SANTI ASHER M.D. FINAL REPORT ACC# ??Date Time ??Exam [id number] Oct 25, 2013 01:40:00 [id number] Chest 1 view Frontal EXAMINATION: ?? Chest [...] M.D. FINAL REPORT ACC# Date Time Exam [id number] Oct 25, 2013 01:40:00 [id number] Chest 1 view Frontal EXAMINATION: Chest 1 [...] Myrna l Result Performing Organization Address [facility] de Phone Number HISTORICAL [...] Myrna l Result Performing Organization Address [facility] de Phone Number HISTORICAL RESULTS * (ABNORMAL) Plasma phosphorus (10/25/2013 12:20 AM CDT) Phosphorus, pl 1.8(L) 2.3 - 4.3 mg/dl HISTORICAL RESULTS Plasma 10/25/2013 12:2 0 AM CDT Historical Provider LAB BLOOD ORDERABLES Myrna l Result Performing Organization Address City/[facility] de Phone Number HISTORICAL [...] RESULTS - 11/13/2013 3:59 AM CDT ? [facility] ?[facility] [place] ?[place], [place] [address] ? Patient Name: ??CURLY ANGELO ? Med Rec Number: [id number] ? Fin Number: ?[id number] ? Date: ?1955 ? Sex/Age: ? Male 58 years ? Admit Date: ?10/19/2013 ? Discharge Date: 11/12/2013 ? Doctor: ?Sherron Mahan ? Facility: ?[facility] ? Location: ?0114 [address] 02 ?* Abnormal ??A Alert ??f Footnote [...] RESULTS - 11/13/2013 3:59 AM CDT ? [facility] ?[facility] [place] ?[place] [address] ? Patient Name: ??GI, CURLY ? Med Rec Number: [id number] ? Fin Number: ?[id number] ? Date: ?1955 ? Sex/Age: ? Male 58 years ? Admit Date: ?10/19/2013 ? Discharge Date: 11/12/2013 ? Doctor: ?Sherron Mahan ? Facility: ?[facility] ? Location: ?0114 [address] 02 ?* Abnormal ??A Alert ??f Footnote [...] identification may be ? performed using the [employer] Nanosphere Gram Positive Blood ? Culture Assay. ??The Nanosphere assay detects microbial DNA in ? positive blood culture broth via hybridization of target DNA to ? capture oligonucleotides on a microarray. ??This assay has been ? cleared by the [place] Food and Drug Administration and ? its performance characteristics have been verified by the ? [facility].Current ? Interpretive Data was last revised on 2013. ? us Historical Provider MD LAB MICROBIOLOGY - GENERA L ORDERABLES Final Result HISTORICAL RESULTS * All Microbiology Report Section (10/25/2013 12:00 AM CDT) 10/25/2013 Narrative HISTORICAL RESULTS - 11/13/2013 3:59 AM CDT ? [facility] ?[facility] [place] ?[place] [address] ? Patient Name: ??GI, CURLY ? Med Rec Number: [id number] ? Fin Number: ?[id number] ? Date: ?1955 ? Sex/Age: ? Male 58 years ? Admit Date: ?10/19/2013 ? Discharge Date: 11/12/2013 ? Doctor: ?Sherron Mahan ? Facility: ?[facility] ? Location: ?[address]14 [address] 02 ?* Abnormal ??A Alert ??f Footnote [...] identification may be ? performed using the [employer] Gram Positive Blood ? Culture Assay. ??The Nanosphere assay detects microbial DNA in ? positive blood culture broth via hybridization of target DNA to ? capture oligonucleotides on a microarray. ??This assay has been ? cleared by the [place] Food and Drug Administration and ? its performance characteristics have been verified by the ? [facility].Current ? Interpretive Data was last revised on 2013. ? us Historical Provider MD LAB MICROBIOLOGY - GENERA L ORDERABLES Final Result HISTORICAL RESULTS * All Microbiology Report Section (10/25/2013 12:00 AM CDT) 10/25/2013 Narrative HISTORICAL RESULTS - 11/13/2013 3:59 AM CDT ? [facility] ?[facility] [place] ?[place], [place] [address] ? Patient Name: ??CURLY ANGELO ? Med Rec Number: [id number] ? Fin Number: ?[id number] ? Date: ?1955 ? Sex/Age: ? Male 58 years ? Admit Date: ?10/19/2013 ? Discharge Date: 11/12/2013 ? Doctor: ?Sherron Mahan ? Facility: ?[facility] ? Location: ?[address]14 [address] ?* Abnormal ??A Alert ??f Footnote [...] L ORDERABLES Final Result Performing Organization Address [facility] de Phone Number HISTORICAL [...] Myrna l Result Performing Organization Address [facility] de Phone Number HISTORICAL [...] L ORDERABLES Final Result Performing Organization Address [facility] de Phone Number HISTORICAL RESULTS * Clostridium difficile toxin (10/24/2013 12:38 PM CDT) Stool (Unknown) 10/24/2013 1 2:38 PM CDT 10/24/2013 1:52 PM CDT Narrative HISTORICAL RESULTS - 10/25/2013 1:19 AM CDT Negative for: Clostridium difficile toxin. Historical Provider LAB MICROBIOLOGY - GENERA L ORDERABLES Final Result Performing Organization Address [facility] de Phone Number HISTORICAL [...] ORDERABLES Fi nal Result Performing Organization Address [facility] de Phone Number HISTORICAL [...] Myrna l Result Performing Organization Address [facility] de Phone Number HISTORICAL RESULTS * (ABNORMAL) Plasma phosphorus (10/24/2013 2:20 AM CDT) Phosphorus, pl 1.9(L) 2.3 - 4.3 mg/dl HISTORICAL RESULTS Plasma 10/24/2013 2:20 AM CDT Juani Grier MD LAB BLOOD ORDERABLES Myrna l Result Performing Organization Address [facility] de Phone Number HISTORICAL RESULTS * Serum magnesium (10/24/2013 2:20 AM CDT) Magnesium 2.3 1.4 - 2.5 mg/dl HISTORICAL RESULTS Serum 10/24/2013 2:20 AM CDT Juani Grier MD LAB BLOOD ORDERABLES Myrna l Result Performing Organization Address [facility] de Phone Number HISTORICAL RESULTS * XR Chest 1 View (10/24/2013 1:24 AM CDT) Anatomical Region Laterality Modality Body, Chest N/A Radiographic Tawanna ging 10/24/2013 1:24 AM CDT Narrative 10/24/2013 10:09 AM CDT JOSE HEARD M.D. FINAL REPORT ACC# ??Date Time ??Exam [id number] Oct 24, 2013 01:24:00 [id number] Chest 1 view Frontal EXAMINATION: ?? Chest [...] M.D. FINAL REPORT ACC# Date Time Exam [id number] Oct 24, 2013 01:24:00 [id number] Chest 1 view Frontal EXAMINATION: Chest radiograph [...] RESULTS - 11/13/2013 3:59 AM CDT ? [facility] ?[facility] [place] ?[place] [address] ? Patient Name: ??CURLY ANGELO ? Med Rec Number: [id number] ? Fin Number: ?[id number] ? Date: ?1955 ? Sex/Age: ? Male 58 years ? Admit Date: ?10/19/2013 ? Discharge Date: 11/12/2013 ? Doctor: ?Sherron Mahan ? Facility: ?[facility] ? Location: ?[address]14 [address] ?* Abnormal ??A Alert ??f Footnote [...] RESULTS - 11/13/2013 3:59 AM CDT ? [facility] ?[facility] [place] ?[place] [address] ? Patient Name: ??CURLY ANGELO ? Med Rec Number: [id number] ? Fin Number: ?[id number] ? Date: ?1955 ? Sex/Age: ? Male 58 years ? Admit Date: ?10/19/2013 ? Discharge Date: 11/12/2013 ? Doctor: ?Keyrouz , Salah G ? Facility: ?[facility] ? Location: ?0114 [address] 02 ?* Abnormal ??A Alert ??f Footnote [...] L ORDERABLES Final Result Performing Organization Address [facility] de Phone Number HISTORICAL [...] Myrna l Result Performing Organization Address [facility] de Phone Number HISTORICAL [...] ORDERABLES Final Resu lt Performing Organization Address [facility] de Phone Number HISTORICAL [...] ORDERABLES Fi nal Result Performing Organization Address [facility] de Phone Number HISTORICAL RESULTS * (ABNORMAL) Serum osmolality (10/23/2013 7:58 AM CDT) Osmo 308(H) 275 - 300 mOsm/kg HISTORICAL RESULTS Serum 10/23/2013 7:58 AM CDT Fortino Roca MD LAB BLOOD ORDERABLES Fi nal Result Performing Organization Address [facility] de Phone Number HISTORICAL [...] ORDERABLES Fi nal Result Performing Organization Address [facility] de Phone Number HISTORICAL RESULTS * [...] Urine 10/22/2013 11:1 8 PM CDT Result [facility] Juani Grier MD LAB BLOOD ORDERABLES Myrna l Result Performing Organization Address [facility] de Phone Number HISTORICAL RESULTS * Urine [...] Myrna l Result Performing Organization Address [facility] de Phone Number HISTORICAL [...] ORDERABLES Myrna l Result Performing Organization Address City/State/[facility] Co de Phone Number HISTORICAL RESULTS * Urine (aerobic) culture (10/22/2013 11:18 PM CDT) Organism ENT^[id number] HISTORICA L RESULTS Urine, catheterized (Unknown) 10/22/2013 [...] L ORDERABLES Final Result Performing Organization Address City/State/[facility] Co de Phone Number [...] performance characteristics have been verified by the [facility]. Current Interpretive Data was last revised on 2013. Narrative HISTORICAL RESULTS - 10/29/2013 5:43 AM CDT No growth Historical Provider LAB MICROBIOLOGY - GENERA L ORDERABLES Final Result Performing Organization Address City/[facility]/ZIP Co de Phone Number HISTORICAL RESULTS * [...] performance characteristics have been verified by the [facility]. Current Interpretive Data was last [...] M.D. FINAL REPORT ACC# ??Date Time ??Exam [id number] Oct 22, 2013 20:50:00 [id number] Chest 1 view Frontal EXAMINATION: ?? 1. [...] M.D. FINAL REPORT ACC# Date Time Exam [id number] Oct 22, 2013 20:50:00 [id number] Chest 1 view Frontal EXAMINATION: 1. Chest [...] M.D. FINAL REPORT ACC# ??Date Time ??Exam [id number] Oct 22, 2013 20:50:00 [id number] Abdomen single view AP EXAMINATION: ??Single portable [...] M.D. FINAL REPORT ACC# Date Time Exam [id number] Oct 22, 2013 20:50:00 [id number] Abdomen single view AP EXAMINATION: Single portable [...] ORDERABLES Myrna l Result Performing Organization Address City/[facility] Co de Phone Number [...] RESULTS Plasma 10/22/2013 8:29 PM CDT Result [facility] Juani Grier MD LAB BLOOD ORDERABLES Myrna l Result Performing Organization Address [facility] de Phone Number HISTORICAL [...] Myrna l Result Performing Organization Address [facility] de Phone Number HISTORICAL RESULTS * (ABNORMAL) Plasma phosphorus (10/22/2013 8:29 PM CDT) Phosphorus, pl 4.6(H) 2.3 - 4.3 mg/dl HISTORICAL RESULTS Plasma 10/22/2013 8:29 PM CDT Juani Grier MD LAB BLOOD ORDERABLES Myrna l Result Performing Organization Address [facility] de Phone Number HISTORICAL [...] updated copy of the Tool Book at [email or web address] Current Interpretive Data was last revised 2011. Plasma 10/22/2013 8:29 PM CDT Juani Grier MD LAB BLOOD ORDERABLES Myrna l Result Performing Organization Address [facility] de Phone Number HISTORICAL RESULTS * Serum magnesium (10/22/2013 8:29 PM CDT) Pathologist [facility] Magnesium 2.0 1.4 - 2.5 mg/dl HISTORICAL RESULTS Serum 10/22/2013 8:29 PM CDT Juani Grier MD LAB BLOOD ORDERABLES Myrna l Result Performing Organization Address [facility] de Phone Number HISTORICAL [...] glucose, POC (10/22/2013 8:23 PM CDT) Pathologist [facility] Glucose, POC, bld 132 70 - 199 mg/dl HISTORICAL RESULTS Blood specimen (specimen) 10/22/2013 8:23 PM CDT Golden Chowdary MD LAB BLOOD ORDERABLES Final Result Performing Organization Address [facility]/ZIP Co de Phone Number HISTORICAL RESULTS * [...] blood 10/22/2013 5: 21 PM CDT Result [facility] Sherron Mahan MD LAB BLOOD ORDERABLES Fi nal Result Performing Organization Address [facility] de Phone Number HISTORICAL RESULTS * Blood glucose, POC (10/22/2013 2:21 PM CDT) Glucose, POC, bld 133 70 - 199 mg/dl HISTORICAL RESULTS Blood specimen (specimen) 10/22/2013 2:21 PM CDT Result [facility] Sherron Mahan MD LAB BLOOD ORDERABLES Fi nal Result Performing Organization Address City/[facility]/ZIP Co de Phone Number HISTORICAL RESULTS * Serum osmolality (10/22/2013 2:19 PM CDT) Osmo 295 275 - 300 mOsm/kg HISTORICAL RESULTS Serum 10/22/2013 2:19 PM CDT Historical Provider LAB BLOOD ORDERABLES Myrna l Result Performing Organization Address City/[facility] Co de Phone Number [...] Myrna l Result Performing Organization Address [facility] Co de Phone Number HISTORICAL RESULTS * Blood glucose, POC (10/22/2013 8:17 AM CDT) Glucose, POC, bld 152 70 - 199 mg/dl HISTORICAL RESULTS Blood specimen (specimen) 10/22/2013 8:17 AM CDT Sherron Mahan MD LAB BLOOD ORDERABLES Fi nal Result Performing Organization Address [facility] Co de Phone Number [...] agrees with it. ACC# ??Date Time ??Exam [id number] Oct 22, 2013 05:15:[address] Head or Brain w/o cont ACC# ??Date Time ??Exam [id number] Oct 22, 2013 05:15:[address] Head or Brain w/o cont EXAMINATION: [...] agrees with it. ACC# Date Time Exam [id number] Oct 22, 2013 05:15:[address] Head or Brain w/o cont ACC# Date Time Exam [id number] Oct 22, 2013 05:15:[address] Head or Brain w/o cont EXAMINATION: [...] Blood glucose, POC (10/22/2013 2:05 AM CDT) [facility] Glucose, POC, bld 138 70 - 199 [...] agrees with it. ACC# ??Date Time ??Exam [id number] Oct 22, 2013 01:05:00 13820 Chest 1 view Frontal EXAMINATION: ?? Chest One View ?? IMPRESSION: ?? Comparison 10/21/2013 at 0818. Redemonstration of endotracheal tube terminating 5-6 cm above the ti. Nasogastric tube descends below the diaphragm and beyond the vjggz-oc-qovi. Mild bibasilar atelectasis, slightly improved on the left. No definite pleural effusion, however the left costophrenic angle is cut off from the aiqmf-cz-rswh. No pneumothorax. The cardiac mediastinal silhouette is [...] agrees with it. ACC# Date Time Exam [id number] Oct 22, 2013 01:05:00 61949 Chest 1 view Frontal EXAMINATION: Chest One View IMPRESSION: Comparison 10/21/2013 at 0818. Redemonstration of endotracheal tube terminating 5-6 cm above the ti. Nasogastric tube descends below the diaphragm and beyond the vgusz-fu-hsjo. Mild bibasilar atelectasis, slightly improved on the left. No definite pleural effusion, however the left costophrenic angle is cut off from the egfyz-zv-qbgb. No pneumothorax. The cardiac mediastinal silhouette is [...] BLOOD ORDERABLES Final Resu Performing Organization Address [facility] de Phone Number HISTORICAL [...] BLOOD ORDERABLES Final Resu Performing Organization Address [facility] de Phone Number HISTORICAL [...] RESULTS - 11/13/2013 3:59 AM CDT ? [facility] ?[facility] [place] ?[place], [place] [address] ? Patient Name: ??CURLY ANGELO ? Med Rec Number: [id number] ? Fin Number: ?[id number] ? Date: ?1955 ? Sex/Age: ? Male 58 years ? Admit Date: ?10/19/2013 ? Discharge Date: 11/12/2013 ? Doctor: ?Keychandniz , Salah G ? Facility: ?[facility] ? Location: ?[address] ?* Abnormal ??A Alert ??f Footnote [...] RESULTS - 11/13/2013 3:59 AM CDT ? [facility] ?[facility] [place] ?[place], [place] [address] ? Patient Name: ??GI CURLY ? Med Rec Number: [id number] ? Fin Number: ?[id number] ? Date: ?1955 ? Sex/Age: ? Male 58 years ? Admit Date: ?10/19/2013 ? Discharge Date: 11/12/2013 ? Doctor: ?Sherron Mahan ? Facility: ?[facility] ? Location: ?[address]14 [address] 02 ?* Abnormal ??A Alert ??f Footnote [...] identification may be ? performed using the [employer] Nanosphere Gram Positive Blood ? Culture Assay. ??The Nanosphere assay detects microbial DNA in ? positive blood culture broth via hybridization of target DNA to ? capture oligonucleotides on a microarray. ??This assay has been ? cleared by the [place] Food and Drug Administration and ? its performance characteristics have been verified by the ? [facility].Current ? Interpretive Data was last revised on 2013. ? us Historical Provider MD LAB MICROBIOLOGY - GENERA L ORDERABLES Final Result HISTORICAL RESULTS * All Microbiology Report Section (10/22/2013 12:00 AM CDT) 10/22/2013 Narrative HISTORICAL RESULTS - 11/13/2013 3:59 AM CDT ? [facility] ?[facility] [place] ?[place] [address] ? Patient Name: ??CURLY ANGELO ? Med Rec Number: [id number] ? Fin Number: ?[id number] ? Date: ?1955 ? Sex/Age: ? Male 58 years ? Admit Date: ?10/19/2013 ? Discharge Date: 11/12/2013 ? Doctor: ?Sherron Mahan ? Facility: ?[facility] ? Location: ?[address]14 [address] 02 ?* Abnormal ??A Alert ??f Footnote [...] identification may be ? performed using the [employer] Nanosphere Gram Positive Blood ? Culture Assay. ??The Nanosphere assay detects microbial DNA in ? positive blood culture broth via hybridization of target DNA to ? capture oligonucleotides on a microarray. ??This assay has been ? cleared by the [place] Food and Drug Administration and ? its performance characteristics have been verified by the ? [facility].Current ? Interpretive Data was last revised on 2013. ? us Historical Provider LAB MICROBIOLOGY - GENERA L ORDERABLES Final Result HISTORICAL RESULTS * All Microbiology Report Section (10/22/2013 12:00 AM CDT) 10/22/2013 Narrative HISTORICAL RESULTS - 11/13/2013 3:59 AM CDT ? [facility] ?[facility] [place] ?[place] [address] ? Patient Name: ??CURLY ANGELO ? Med Rec Number: [id number] ? Fin Number: ?[id number] ? Date: ?1955 ? Sex/Age: ? Male 58 years ? Admit Date: ?10/19/2013 ? Discharge Date: 11/12/2013 ? Doctor: ?Sherron Mahan ? Facility: ?[facility] ? Location: ?[address]14 [address] ?* Abnormal ??A Alert ??f Footnote [...] L ORDERABLES Final Result Performing Organization Address [facility] Co de Phone Number HISTORICAL RESULTS * Blood glucose, POC (10/21/2013 8:23 PM CDT) Glucose, POC, bld 147 70 - 199 mg/dl HISTORICAL RESULTS Blood specimen (specimen) 10/21/2013 8:23 PM CDT Sherron Mahan MD LAB BLOOD ORDERABLES Fi nal Result Performing Organization Address [facility] de Phone Number HISTORICAL [...] Myrna l Result Performing Organization Address [facility] Co de Phone Number HISTORICAL RESULTS * Blood glucose, POC (10/21/2013 1:29 PM CDT) Glucose, POC, bld 147 70 - 199 mg/dl HISTORICAL RESULTS Blood specimen (specimen) 10/21/2013 1:29 PM CDT Sherron Mahan MD LAB BLOOD ORDERABLES Fi nal Result Performing Organization Address [facility] Co de Phone Number [...] M.D. FINAL REPORT ACC# ??Date Time ??Exam [id number] Oct 20, 2013 19:04:00 07947 Chest 1 view Frontal [id number] Oct 21, 2013 08:11:00 71344 Chest 1 view Frontal EXAMINATION: ?? Two [...] M.D. FINAL REPORT ACC# Date Time Exam [id number] Oct 20, 2013 19:04:00 73544 Chest 1 view Frontal [id number] Oct 21, 2013 08:11:00 45807 Chest 1 view Frontal EXAMINATION: Two One [...] Blood glucose, POC (10/21/2013 7:44 AM CDT) [facility] Glucose, POC, bld 137 70 - 199 [...] agrees with it. ACC# ??Date Time ??Exam [id number] Oct 21, 2013 05:24:[address] Head or Brain w/o cont EXAMINATION: [...] midline shift. [facility] 900 am. [...] agrees with it. ACC# Date Time Exam [id number] Oct 21, 2013 05:24:[address] Head or Brain w/o cont EXAMINATION: [...] midline shift. These findings were discussed with [facility] by Dr. Price at 900 am. Requested [...] ORDERABLES Fi nal Result Performing Organization Address [facility] Co de Phone Number [...] ORDERABLES Final Resu lt Performing Organization Address City/[facility]/ZIP Co de Phone Number HISTORICAL RESULTS * [...] ORDERABLES Final Resu lt Performing Organization Address [facility] de Phone Number HISTORICAL RESULTS * Serum magnesium (10/20/2013 11:21 PM CDT) Magnesium 1.8 1.4 - 2.5 mg/dl HISTORICAL RESULTS Serum 10/20/2013 11:2 1 PM CDT Jose Greenberg LAB BLOOD ORDERABLES Final Resu lt Performing Organization Address [facility] de Phone Number HISTORICAL [...] Blood glucose, POC (10/20/2013 7:39 PM CDT) [facility] Glucose, POC, bld 136 70 - 199 mg/dl HISTORICAL RESULTS Blood specimen (specimen) 10/20/2013 7:39 PM CDT us Sherron Mahan MD LAB BLOOD ORDERABLES Fi nal Result Performing Organization Address City/[facility]/ZIP Co de Phone Number HISTORICAL RESULTS * XR Chest 1 View (10/20/2013 7:04 PM CDT) Anatomical Region Laterality Modality Body, Chest N/A Radiographic Tawanna ging 10/20/2013 7:04 PM CDT Narrative 10/21/2013 12:08 PM CDT ELIZABETH POOLE M.D. FINAL REPORT ACC# ??Date Time ??Exam [id number] Oct 20, 2013 19:04:00 82988 Chest 1 view Frontal [id number] Oct 21, 2013 08:11:00 51683 Chest 1 view Frontal EXAMINATION: ?? Two [...] M.D. FINAL REPORT ACC# Date Time Exam [id number] Oct 20, 2013 19:04:00 23892 Chest 1 view Frontal [id number] Oct 21, 2013 08:11:00 93117 Chest 1 view Frontal EXAMINATION: Two One [...] organism identification may be performed using the [employer] Nanosphere Gram Positive Blood Culture Assay. ??The Nanosphere assay detects microbial DNA in positive blood culture broth via hybridization of target DNA to capture oligonucleotides on a microarray. ??This assay has been cleared by the [place] Food and Drug Administration and its performance characteristics have been verified by the [facility]. Current Interpretive Data was last revised on 2013. Narrative HISTORICAL RESULTS - 10/26/2013 2:58 AM CDT No growth [facility] Provider MD LAB MICROBIOLOGY - GENERA L ORDERABLES Final Result Performing Organization Address [facility] de Phone Number HISTORICAL RESULTS * Aerobic culture and Gram stain (10/20/2013 4:06 PM CDT) Sputum (Unknown) 10/20/2013 4:06 PM CDT 10/20/2013 4:07 PM CDT [facility] Provider MD LAB MICROBIOLOGY - GENERA L ORDERABLES Final Result Performing Organization Address [facility] de Phone Number HISTORICAL RESULTS * Blood [...] organism identification may be performed using the [employer] Nanosphere Gram Positive Blood Culture Assay. ??The Nanosphere assay detects microbial DNA in positive blood culture broth via hybridization of target DNA to capture oligonucleotides on a microarray. ??This assay has been cleared by the [place] Food and Drug Administration and its performance characteristics have been verified by the [facility]. Current Interpretive Data was last revised on 2013. Narrative HISTORICAL RESULTS - 10/26/2013 2:58 AM CDT No growth Historical Provider MD LAB MICROBIOLOGY - GENERA L ORDERABLES Final Result Performing Organization Address [facility] de Phone Number HISTORICAL RESULTS * Blood [...] L ORDERABLES Final Result Performing Organization Address City/[facility] Co de Phone Number [...] agrees with it. ACC# ??Date Time ??Exam [id number] Oct 20, 2013 09:50:00 10885 Chest 1 view Frontal EXAMINATION: ?? Chest [...] agrees with it. ACC# Date Time Exam [id number] Oct 20, 2013 09:50:00 46071 Chest 1 view Frontal EXAMINATION: Chest 1 [...] contour are normal. Requested By: [facility] Dictated By: MARY ARTHUR, on Oct 20 [...] agrees with it. ACC# ??Date Time ??Exam [id number] Oct 20, 2013 08:37:00 50751I [facility] Neuro Consult EXAMINATION: ?CHANGE CONSULT ON OUTSIDE IMAGES TO OUTSIDE REFERENCE IMAGES IMPRESSION: ?This study was initially nominated as a consult on outside images via [employer]. This nomination was done incorrectly; the study should have been nominated as a reference image. Accordingly, there will be no separate report of this study generated by a [facility] Radiologist. Reference to this exam can be seen on study with accession number [id number], head CT dated 10/20/2013. Requested By: JOSE [...] agrees with it. ACC# Date Time Exam [id number] Oct 20, 2013 08:37:00 66645O [facility] Neuro Consult EXAMINATION: CHANGE CONSULT ON OUTSIDE IMAGES TO OUTSIDE REFERENCE IMAGES IMPRESSION: This study was initially nominated as a consult on outside images via [employer]. This nomination was done incorrectly; the study should have been nominated as a reference image. Accordingly, there will be no separate report of this study generated by a [facility] Radiologist. Reference to this exam can be seen on study with accession number [id number], head CT dated 10/20/2013. Requested By: JOSE [...] ORDERABLES Fi nal Result Performing Organization Address [facility] de Phone Number HISTORICAL RESULTS * (ABNORMAL) Serum troponin I (10/20/2013 5:54 AM CDT) Troponin I 0.07(H) 0.00 - 0.03 ng/ml HISTORICAL RESULTS Comment: Interpretive Data Serial determinations are recommended for the diagnosis of myocardial infarction (Third Energy Definition of Myocardial Infarction. ??J Am Mary Cardiol 2012;60:1581-98). Current interpretive data was last revised on 13. Serum 10/20/2013 5:54 AM CDT Result [facility] Jose Greenberg LAB BLOOD ORDERABLES Final Resu lt Performing Organization Address [facility] Phone Number HISTORICAL RESULTS * [...] and children were not included. ??(Diabetes Care 31:4573-9224, 2008). ??The eAG is not equivalent to a fasting glucose. Blood specimen (specimen) 10/20/2013 5:54 AM CDT Jose Greenberg LAB BLOOD ORDERABLES Final Resu lt Performing Organization Address [facility] de Phone Number HISTORICAL [...] agrees with it. ACC# ??Date Time ??Exam [id number] Oct 20, 2013 05:26:[address] Head or Brain w/o cont EXAMINATION: ?? Noncontrast head CT HISTORY: Right hemiparesis TECHNIQUE: Noncontrast CT of the brain was performed with axial images acquired from skull base to vertex. COMPARISON: Comparison is made to head CT from [facility] 10/19/2013. FINDINGS: Topogram demonstrates no lytic [...] agrees with it. ACC# Date Time Exam [id number] Oct 20, 2013 05:26:[address] Head or Brain w/o cont EXAMINATION: Noncontrast head CT HISTORY: Right hemiparesis TECHNIQUE: Noncontrast CT of the brain was performed with axial images acquired from skull base to vertex. COMPARISON: Comparison is made to head CT from [facility] 10/19/2013. FINDINGS: Topogram demonstrates no lytic [...] RESULTS - 11/13/2013 3:59 AM CDT ? [facility] ?[facility] [place] ?[place], [place] [address] ? Patient Name: ??GI, CURLY ? Med Rec Number: [id number] ? Fin Number: ?[id number] ? Date: ?1955 ? Sex/Age: ? Male 58 years ? Admit Date: ?10/19/2013 ? Discharge Date: 11/12/2013 ? Doctor: ?Sherron Mahan ? Facility: ?[facility] ? Location: ?[address]14 [address] ?* Abnormal ??A Alert ??f Footnote [...] RESULTS - 11/13/2013 3:59 AM CDT ? [facility] ?[facility] [place] ?[place] [address] ? Patient Name: ??CURLY ANGELO ? Med Rec Number: [id number] ? Fin Number: ?[id number] ? Date: ?1955 ? Sex/Age: ? Male 58 years ? Admit Date: ?10/19/2013 ? Discharge Date: 11/12/2013 ? Doctor: ?Keyrouz , Salah G ? Facility: ?[facility] ? Location: ?[address]14 [address] ?* Abnormal ??A Alert ??f Footnote [...] identification may be ? performed using the [employer] Nanosphere Gram Positive Blood ? Culture Assay. ??The Nanosphere assay detects microbial DNA in ? positive blood culture broth via hybridization of target DNA to ? capture oligonucleotides on a microarray. ??This assay has been ? cleared by the [place] Food and Drug Administration and ? its performance characteristics have been verified by the ? [facility] Laboratory.Current ? Interpretive Data was last revised on 2013. ? us Historical Provider LAB MICROBIOLOGY - GENERA L ORDERABLES Final Result HISTORICAL RESULTS * All Microbiology Report Section (10/20/2013 12:00 AM CDT) 10/20/2013 Narrative HISTORICAL RESULTS - 11/13/2013 3:59 AM CDT ? [facility] ?[facility] [place] ?[place], [facility] [address] ? Patient Name: ??GI, CURLY ? Med Rec Number: [id number] ? Fin Number: ?[id number] ? Date: ?1955 ? Sex/Age: ? Male 58 years ? Admit Date: ?10/19/2013 ? Discharge Date: 11/12/2013 ? Doctor: ?Sherron Mahan ? Facility: ?[facility] ? Location: ?[address]14 [address] ?* Abnormal ??A Alert ??f Footnote [...] identification may be ? performed using the [employer] Nanosphere Gram Positive Blood ? Culture Assay. ??The Nanosphere assay detects microbial DNA in ? positive blood culture broth via hybridization of target DNA to ? capture oligonucleotides on a microarray. ??This assay has been ? cleared by the [place] Food and Drug Administration and ? its performance characteristics have been verified by the ? [facility].Current ? Interpretive Data was last revised on 2013. ? us Historical Provider MD LAB MICROBIOLOGY - GENERA L ORDERABLES Final Result HISTORICAL RESULTS * All Microbiology Report Section (10/20/2013 12:00 AM CDT) 10/20/2013 Narrative HISTORICAL RESULTS - 11/13/2013 3:59 AM CDT ? [facility] ?[facility] [place] ?[place] [address] ? Patient Name: ??DORY ANGELORY ? Med Rec Number: [id number] ? Fin Number: ?[id number] ? Date: ?1955 ? Sex/Age: ? Male 58 years ? Admit Date: ?10/19/2013 ? Discharge Date: 11/12/2013 ? Doctor: ?Sherron Mahan ? Facility: ?[facility] ? Location: ?[address]14 [address] ?* Abnormal ??A Alert ??f Footnote [...] agrees with it. ACC# ??Date Time ??Exam [id number] Oct 19, 2013 21:56:00 16668 Chest 1 view Frontal EXAMINATION: ?? Chest [...] agrees with it. ACC# Date Time Exam [id number] Oct 19, 2013 21:56:00 51023 Chest 1 view Frontal EXAMINATION: Chest one [...] agrees with it. ACC# ??Date Time ??Exam [id number] Oct 19, 2013 21:56:00 00099 Abdomen single view AP EXAMINATION: ?Abdomen single [...] agrees with it. ACC# Date Time Exam [id number] Oct 19, 2013 21:56:00 65167 Abdomen single view AP EXAMINATION: Abdomen single [...] ORDERABLES Final Resu lt Performing Organization Address City/[facility] Co de Phone Number [...] ORDERABLES Final Resu lt Performing Organization Address [facility] de Phone Number HISTORICAL [...] ORDERABLES Final Resu lt Performing Organization Address [facility] de Phone Number HISTORICAL RESULTS * (ABNORMAL) Plasma comprehensive metabolic panel (10/19/2013 8:42 PM CDT) Pathologist [facility] Sodium 143 135 - 145 mmol/L HISTORICAL [...] ORDERABLES Final Resu lt Performing Organization Address [facility] de Phone Number HISTORICAL RESULTS * Plasma partial thromboplastin time (PTT) (10/19/2013 8:42 PM CDT) APTT 33.3 25.0 - 37.0 seconds HISTORICAL RESULTS Comment: Interpretive Data Therapeutic heparin range:60.0 - 94.0 sec based on correlation with therapeutic heparin activity range of 0.3 -0.7 Units/mL. Current interpretive data was last revised on 2011. Plasma 10/19/2013 8:42 PM CDT Result [facility] Jose Greenberg LAB BLOOD ORDERABLES Final Resu lt Performing Organization Address [facility] de Phone Number HISTORICAL RESULTS * (ABNORMAL) Serum troponin I (10/19/2013 8:42 PM CDT) Troponin I 0.22(C) 0.00 - 0.03 ng/ml HISTORICAL RESULTS Comment: Critical result called to Kelvin solis) on 10/19/2013 21:23:16 CDT by neil. Interpretive Data Serial determinations are recommended for the diagnosis of myocardial infarction (Third Energy Definition of Myocardial Infarction. ??J Am Mary Cardiol 2012;60:1581-98). Current interpretive data was last revised on 13. Serum 10/19/2013 8:42 PM CDT Jose Greenberg LAB BLOOD ORDERABLES Final Resu lt Performing Organization Address [facility] de Phone Number HISTORICAL RESULTS * Plasma phosphorus (10/19/2013 8:42 PM CDT) Phosphorus, pl 4.1 2.3 - 4.3 mg/dl HISTORICAL RESULTS Plasma 10/19/2013 8:42 PM CDT Jose Greenberg LAB BLOOD ORDERABLES Final Resu Performing Organization Address [facility] de Phone Number HISTORICAL RESULTS * [...] updated copy of the Tool Book at [email or web address] Current Interpretive Data was last revised 2011. Plasma 10/19/2013 8:42 PM CDT Jose Greenberg LAB BLOOD ORDERABLES Final Resu Performing Organization Address [facility] de Phone Number HISTORICAL RESULTS * Serum magnesium (10/19/2013 8:42 PM CDT) Magnesium 1.5 1.4 - 2.5 mg/dl HISTORICAL RESULTS Serum 10/19/2013 8:42 PM CDT Jose Greenberg LAB BLOOD ORDERABLES Final Resu lt Performing Organization Address [facility] de Phone Number HISTORICAL [...]
== END 2024-03-27 12:17 | disposition left against medical advice (07) ==
LOC: ANHED 14:32
DX: Z76.0 Encounter for issue of repeat prescription (principal)
CPT/HCPCS: 99199